=== PATIENT | male | born 1945 | race Hispanic/Latino ===

== ENCOUNTER 2016-07-29 18:15 | Inpatient (IN) | payer MEDICARE ==
--- NOTE | 2016-07-29 20:19 | ED PDOC ---
Syncope/Near Syncope/Dizzyness Time Seen by Provider: 07/29/16 19:05 Chief Complaint (Nursing): Dizziness/Lightheaded Chief Complaint (Provider): dizziness History Per: Patient History/Exam Limitations: no limitations Additional Complaint(s): Kumar Guzman is a 70 year old male, with a previous medical history of anemia, delirium and osteomyelitis of the right foot, who presents to the ED after sustaining a fall secondary to feeling dizzy. Patient denies any fever, vomiting , abdominal pain, loss of consciousness, changes in vision, changes or speech or changes in gait.denies chest pain, sob. Patient walks with a walker at baseline. PMD: none provided NIHSS Stroke Scale - Date/Time Evaluation Performed Date Performed: 07/29/16 - How Severe is the Stroke Level of Consciousness: 0=Alert LOC to Questions: 0=Both comments correct LOC to commands: 0=Obeys both correctly Best Gaze: 0=Normal Visual: 0=No visual loss Facial: 0=Normal Motor Arm - Left: 0=No drift Motor Arm - Right: 0=No drift Motor Leg - Left: 0=No drift Motor Leg - Right: 0=No drift Limb Ataxia: 0=Absent Sensory: 0=Normal Best Language: 0=No aphasia Dysarthia: 0=Normal articulation Extinction & Inattention (Neglect): 0=Normal, no object Score: 0 Severity Of Stroke: 0 = No Stroke Past Medical History Reviewed: Historical Data, Nursing Documentation, Vital Signs Vital Signs: Last Vital Signs Temp 98.2 F 07/29/16 18:18 Pulse 99 H 07/29/16 18:18 Resp 16 07/29/16 18:18 BP 127/80 07/29/16 18:18 Pulse Ox 99 07/29/16 18:18 - Medical History PMH: Diabetes, HTN Denies: HIV - Surgical History Surgical History: No Surg Hx - Family History Family History: States: Unknown Family Hx - Living Arrangements Living Arrangements: With Family (w alcoholic son) - Social History Current smoker - smoking cessation education provided: No Alcohol: None Drugs: Denies - Home Medications Home Medications: Ambulatory Orders Medication Instructions Recorded No Known Home Med 07/29/16 - Allergies Allergies/Adverse Reactions: Allergies Allergy/AdvReac Type Severity Reaction Status Date / Time No Known Allergies Allergy Verified 07/29/16 18:18 Review of Systems ROS Statement: Except As Marked, All Systems Reviewed And Found Negative Constitutional: Negative for: Fever Gastrointestinal: Negative for: Vomiting, Abdominal Pain Neurological: Positive for: Dizziness. Negative for: Headache, Other (LOC) Physical Exam - Reviewed Nursing Documentation Reviewed: Yes Vital Signs Reviewed: Yes - Physical Exam Appears: Positive for: Well (patient appears discheveled ), Non-toxic, No Acute Distress Head Exam: Positive for: ATRAUMATIC, NORMAL INSPECTION, NORMOCEPHALIC Skin: Positive for: Normal Color, Warm, DRY Eye Exam: Positive for: EOMI, Normal appearance, PERRL ENT: Positive for: Normal ENT Inspection Neck: Positive for: Normal, Painless ROM Cardiovascular/Chest: Positive for: Regular Rate, Rhythm Respiratory: Positive for: CNT, Normal Breath Sounds Gastrointestinal/Abdominal: Positive for: Normal Exam, Bowel Sounds, Soft Back: Positive for: Normal Inspection Extremity: Positive for: Normal ROM, Swelling (chronic right foot swelling) Neurologic/Psych: Positive for: Alert, Oriented - Laboratory Results Result Diagrams: 07/29/16 20:24 07/29/16 20:24 - ECG ECG Rhythm: Positive for: Sinus Rhythm. Negative for: ST/T Changes Rate: 92 (bpm) O2 Sat by Pulse Oximetry: 99 (RA) Pulse Ox Interpretation: Normal - Progress ED Course And Treament: 21:55 Spoke with patient's son (Kirsten Guzman) who expressed concern for his father's wellbeing stating patient lives with his alcoholic brother and experiences frequent falls. Son believes patient is unsafe at home and wants his father placed in a snf. Son reports patient is noncompliant with diabetes medication. 22:[address] Carranza who agrees to plan of admission Medical Decision Making Medical Decision Making: Initial Impression: fall rule our alcohol withdrawal vs intracranial process Initial Plan: * CT head w/o contrast * CXR * EKG * labs * alcohol serum * urine drug screen * Troponin I * urinalysis * urine culture * reevaluation 20:59 CT Head FINDINGS: Brain: Mild atrophy. No intracranial hemorrhage. No mass. Multiple scattered foci of decreased attenuation within periventricular/subcortical white matter. No definite edema. Ventricles: No hydrocephalus. Bones/joints: No acute fracture. Soft tissues: Unremarkable. Vasculature: Mild atherosclerotic disease of intracranial arteries. Sinuses: Scattered mild mucosal thickening of RIGHT maxillary sinus. Scattered minimal to mild mucosal thickening. Mastoid air cells: No mastoid effusion. Orbits: Unremarkable as visualized. IMPRESSION: 1. Nonspecific white matter changes. Acute infarction may be CT occult within first 24 hours. If a focal deficit persists, consider followup CT or MRI for further evaluation. 2. Incidental/non-acute findings are described above. Pt will need to be admitted for recurrent falls and dizziness. pt also may need placement in snf due as per son Kirsten who is here with pt. he doesnt live with pt as pt lives with other son who is alcoholic and pt himself has history of etoh abuse so is an unhealthy environment for pt. Dr Dillon becerra coal conveyor operator will admit pt. he is aware. pt hasnt followed up with a doctor in many months to years. does not take any medications at home as per kirsten. pt also noted to have UTI, rocephin ordered Scribe Attestation: Documented by Kayla Caraballo, acting as a scribe for Mckenzie Reyna MD. Provider Scribe Attestation: All medical record entries made by the Scribe were at my direction and personally dictated by me. I have reviewed the chart and agree that the record accurately reflects my personal performance of the history, physical exam, medical decision making, and the department course for this patient. I have also personally directed, reviewed, and agree with the discharge instructions and disposition. Disposition - Clinical Impression Clinical Impression: Dizziness, Falls, UTI (urinary tract infection) - Patient ED Disposition Is Patient to be Admitted: Yes - Disposition Disposition Time: 22:00 Condition: STABLE rTPA Inclusion/Exclusion - Refusal of Treatment Patient Refused Treatment: No - Inclusion Criteria for Altepase Patient is 18 years or Older: Yes Clinical DX Ischemic Stroke Cause Neurological Deficit: No Time of Onset Established Less Than 270 Mins Before TX Begin: No Risk/Benefit Discussed With Patient/Family Member Present: No - Warning to TPA With Conditions Following Conditions Weighed Against Anticipated Benefit: No
--- NOTE | 2016-07-29 20:59 | CT ---
EXAM: CT Head Without Intravenous Contrast CLINICAL HISTORY: 70 years old, male; Signs and symptoms; Dizziness; Additional info: Headache. Sent lelo Viramontes. Doc. With request TECHNIQUE: Axial computed tomography images of the head/brain without intravenous contrast. This CT exam was performed using one or more of the following dose reduction techniques: automated exposure control, adjustment of the mA and/or kV according to patient size, and/or use of iterative reconstruction technique. Coronal and sagittal reformatted images were created and reviewed. COMPARISON: CT - HEAD W/O CONTRAST 04/10/2015 12:31:51 AM FINDINGS: Brain: Mild atrophy. No intracranial hemorrhage. No mass. Multiple scattered foci of decreased attenuation within periventricular/subcortical white matter. No definite edema. Ventricles: No hydrocephalus. Bones/joints: No acute fracture. Soft tissues: Unremarkable. Vasculature: Mild atherosclerotic disease of intracranial arteries. Sinuses: Scattered mild mucosal thickening of RIGHT maxillary sinus. Scattered minimal to mild mucosal thickening. Mastoid air cells: No mastoid effusion. Orbits: Unremarkable as visualized. IMPRESSION: 1. Nonspecific white matter changes. Acute infarction may be CT occult within first 24 hours. If a focal deficit persists, consider followup CT or MRI for further evaluation. 2. Incidental/non-acute findings are described above.
[2016-07-29 21:09] LABS: BASO # 0.1 K/uL (0.0-0.2); BASO % 1.1 % (0.0-2.0); EOS # 0.1 K/uL (0.0-0.7); EOS % 1.6 % (0.0-4.0); HEMATOCRIT 39.1 % (35.0-51.0); LYMPH # 1.5 K/uL (1.0-4.3); LYMPH % 16.6 % (20.0-40.0); MEAN CELL VOLUME 99.7 fl (80.0-94.0); MEAN CORPUSCULAR HEMOGLOBIN 32.8 pg (27.0-31.0); MEAN CORPUSCULAR HGB CONC 32.9 g/dL (33.0-37.0); MEAN PLATELET VOLUME 10.3 fl (7.2-11.7); MONO # 0.9 K/uL (0.0-0.8); NEUT # 6.5 K/uL (1.8-7.0); NEUT % 70.7 % (50.0-75.0); RED CELL DISTRIBUTION WIDTH 14.3 % (11.5-14.5); WHITE BLOOD COUNT 9.1 K/uL (4.8-10.8)
[2016-07-29 21:17] LABS: ALB/GLOB RATIO 1.1 (1.0-2.1); ALCOHOL SERUM < 10 mg/dl (0-10); ALKALINE PHOSPHATASE 112 U/L (38-126); ALT/SGPT 16 U/L (21-72); AST/SGOT 14 U/L (17-59); BILIRUBIN,TOTAL 0.4 mg/dl (0.2-1.3); BLOOD UREA NITROGEN 18 mg/dl (9-20); CALCIUM 9.5 mg/dL (8.4-10.2); CARBON DIOXIDE 23 mmol/L (22-30); CHLORIDE 109 mmol/L (98-107); GFR AFRICAN-AMERICAN 56; GLUCOSE,RANDOM 204 mg/dL (75-110); POTASSIUM 4.1 MMOL/L (3.6-5.0); SODIUM 141 mmol/l (132-148); TOTAL PROTEIN 7.3 G/DL (6.3-8.2)
[2016-07-29 22:18] LABS: RBC URINE 5 /hpf (0-3); URINE BACTERIA RARE (<OCC); URINE BILIRUBIN NEGATIVE (NEGATIVE); URINE BLOOD NEGATIVE (NEGATIVE); URINE COLOR YELLOW (YELLOW); URINE GLUCOSE (UA) NEG (Normal); URINE KETONE NEGATIVE (NEGATIVE); URINE LEUKOCYTE ESTERASE MOD Leu/uL (Negative); URINE PROTEIN 30 mg/dL (NEGATIVE); URINE UROBILINOGEN 0.2-1.0 mg/dL (0.2-1.0); WBC URINE 58 /hpf (0-5)
--- NOTE | 2016-07-30 06:48 | CP.PCM.HP ---
<Dior Fuentes - Last Filed: 07/30/16 19:07> History of Present Illness - History of Present Illness History of Present Illness: CC: Fall Patient admitted overnight and seen this morning at bedside with attending. Pt states he was attempting to pull up his pants and fell over and just "laid there". He denies LOC or striking his head. He denies any SOB, chest pain, abdominal pain, fevers, chills, diarrhea, but reports a non-productive cough. He denies any associated seizure like activity. PMH: DM, alcohol abuse Present on Admission - Present on Admission Any Indicators Present on Admission: No History of DVT/PE: No Review of Systems - Review of Systems All systems: reviewed and no additional remarkable complaints except - Respiratory Respiratory: Cough Past Patient History - Past Medical History & Family History Past Medical History?: Yes - Past Social History Alcohol: None Drugs: Denies - CARDIAC Hx Hypertension: Yes - PULMONARY Hx Respiratory Disorders: No - NEUROLOGICAL Hx Neurological Disorder: Yes Hx Meningitis: Yes - HEENT Hx HEENT Problems: No - RENAL Hx Chronic Kidney Disease: No - ENDOCRINE/METABOLIC Hx Endocrine Disorders: Yes Hx Diabetes Mellitus Type 2: Yes - HEMATOLOGICAL/ONCOLOGICAL Hx Human Immunodeficiency Virus (HIV): No - INTEGUMENTARY Hx Dermatological Problems: No - MUSCULOSKELETAL/RHEUMATOLOGICAL Hx Musculoskeletal Disorders: Yes Hx Falls: Yes Hx Osteomyelitis: Yes - GASTROINTESTINAL Hx Gastrointestinal Disorders: No - GENITOURINARY/GYNECOLOGICAL Hx Genitourinary Disorders: No - PSYCHIATRIC Hx Psychophysiologic Disorder: No Hx Substance Use: No - SURGICAL HISTORY Hx Surgeries: No - ANESTHESIA Hx Anesthesia: No Hx Anesthesia Reactions: No Hx Malignant Hyperthermia: No Has any member of the family had a problem w/ anesthesia?: No Meds Allergies/Adverse Reactions: Allergies Allergy/AdvReac Type Severity Reaction Status Date / Time No Known Allergies Allergy Verified 07/29/16 18:18 Physical Exam - Constitutional Appears: Non-toxic, No Acute Distress, Unkempt, Older Than Stated Age Additional comments: Smells like urine - Head Exam Head Exam: ATRAUMATIC, NORMAL INSPECTION - Eye Exam Eye Exam: EOMI, PERRL. absent: Nystagmus - ENT Exam ENT Exam: Mucous Membranes Moist, Normal Exam - Respiratory Exam Respiratory Exam: Clear to Auscultation Bilateral, Rhonchi (LEFT base), NORMAL BREATHING PATTERN. absent: Wheezes - Cardiovascular Exam Cardiovascular Exam: REGULAR RHYTHM. absent: JVD - GI/Abdominal Exam GI & Abdominal Exam: Normal Bowel Sounds, Soft. absent: Tenderness - Extremities Exam Extremities exam: Positive for: normal capillary refill, pedal pulses present. Negative for: normal inspection (RIGHT foot s/p resection of ?3rd toe, well healed), pedal edema - Neurological Exam Neurological exam: Alert - Skin Skin Exam: Normal Color, Warm Results - Vital Signs Recent Vital Signs: Last Vital Signs Temp 37.2 C 07/29/16 22:55 Pulse 92 H 07/30/16 05:33 Resp 17 07/29/16 22:55 BP 160/90 H 07/29/16 22:55 Pulse Ox 99 07/30/16 05:33 - Labs Result Diagrams: 07/30/16 07:45 07/30/16 07:45 Assessment & Plan (1) Falls Assessment and Plan: Recurrent, likely secondary to chronic changes involving nutrition and alcohol use. CT head consistent with chronic changes, TSH/B12/Folate wnl. - Neurology Consult(Dr Wolf) appreciated - PT/OT Status: Acute Priority: Medium (2) DVT prophylaxis Assessment and Plan: Lovenox 40mg, SC, Daily Status: Acute (3) Diabetes Assessment and Plan: Stable c/w home medications Status: Acute <Henri Carranza - Last Filed: 08/02/16 09:54> Results - Vital Signs Recent Vital Signs: Last Vital Signs Temp 98.3 F 08/02/16 08:32 Pulse 82 08/02/16 08:32 Resp 20 08/02/16 08:32 BP 137/76 08/02/16 08:32 Pulse Ox 95 08/02/16 08:32 - Labs Result Diagrams: 08/01/16 18:00 08/01/16 18:00 Labs: Laboratory Results - last 24 hr 08/01/16 08/01/16 08/01/16 10:30 17:00 18:00 WBC 7.8 RBC 3.51 L Hgb 11.7 L Hct 34.4 L MCV 98.0 H MCH 33.3 H MCHC 34.0 RDW 14.2 Plt Count 112 L Sodium Potassium Chloride Carbon Dioxide Anion Gap BUN Creatinine Est GFR ( Amer) Est GFR (Non-Af Amer) POC Glucose (mg/dL) 186 H 217 H Random Glucose Calcium RPR HIV-1 Ab Rapid Screen 08/01/16 08/01/16 08/01/16 18:00 18:00 18:00 WBC RBC Hgb Hct MCV MCH MCHC RDW Plt Count Sodium 139 Potassium 4.4 Chloride 108 H Carbon Dioxide 20 L Anion Gap 15 BUN 37 H Creatinine 1.9 H Est GFR ( Amer) 43 Est GFR (Non-Af Amer) 35 POC Glucose (mg/dL) Random Glucose 145 H Calcium 8.6 RPR Nonreactive HIV-1 Ab Rapid Screen Non reactive 08/02/16 06:45 WBC RBC Hgb Hct MCV MCH MCHC RDW Plt Count Sodium Potassium Chloride Carbon Dioxide Anion Gap BUN Creatinine Est GFR ( Amer) Est GFR (Non-Af Amer) POC Glucose (mg/dL) 117 H Random Glucose Calcium RPR HIV-1 Ab Rapid Screen Assessment & Plan (1) Dizziness Status: Acute (2) Falls Status: Acute Priority: Medium (3) Diabetes mellitus type 2 in nonobese Status: Acute (4) Gait difficulty Status: Acute - Assessment and Plan (Free Text) Plan: I was present during evaluation and discussed with Dr Alfredo robison plans of care and tx.
[2016-07-30 08:10] LABS: BASO # 0.1 K/uL (0.0-0.2); BASO % 2.1 % (0.0-2.0); EOS # 0.1 K/uL (0.0-0.7); EOS % 2.6 % (0.0-4.0); HEMATOCRIT 36.8 % (35.0-51.0); LYMPH # 1.8 K/uL (1.0-4.3); LYMPH % 33.8 % (20.0-40.0); MEAN CELL VOLUME 98.2 fl (80.0-94.0); MEAN CORPUSCULAR HEMOGLOBIN 33.3 pg (27.0-31.0); MEAN CORPUSCULAR HGB CONC 33.9 g/dL (33.0-37.0); MEAN PLATELET VOLUME 10.4 fl (7.2-11.7); MONO # 0.8 K/uL (0.0-0.8); MONO % 14.3 % (0.0-10.0); NEUT # 2.6 K/uL (1.8-7.0); NEUT % 47.2 % (50.0-75.0); NRBC % 0.1 % (0.0-0.0); RED CELL DISTRIBUTION WIDTH 14.4 % (11.5-14.5); WHITE BLOOD COUNT 5.4 K/uL (4.8-10.8)
--- NOTE | 2016-07-30 08:29 | CARD ---
APPROVED REPORT EKG Measurement Heart [id number] <Conclusion> Normal sinus rhythm Normal ECG
[2016-07-30 08:37] LABS: ALB/GLOB RATIO 1.1 (1.0-2.1); ALKALINE PHOSPHATASE 100 U/L (38-126); ALT/SGPT 18 U/L (21-72); AST/SGOT 15 U/L (17-59); BILIRUBIN,TOTAL 0.3 mg/dl (0.2-1.3); BLOOD UREA NITROGEN 18 mg/dl (9-20); CALCIUM 9.3 mg/dL (8.4-10.2); CARBON DIOXIDE 23 mmol/L (22-30); CHLORIDE 108 mmol/L (98-107); GFR AFRICAN-AMERICAN > 60; GLUCOSE,RANDOM 199 mg/dL (75-110); POTASSIUM 3.8 MMOL/L (3.6-5.0); SODIUM 141 mmol/l (132-148)
[2016-07-30 08:52] LABS: THYROID STIMULATING HORMONE 1.63 mIU/ML (0.46-4.68)
--- NOTE | 2016-07-30 10:05 | RAD ---
HISTORY: Dizziness COMPARISON: 04/10/2015 FINDINGS: LUNGS: The lungs are well inflated and clear. PLEURA: No significant pleural effusion identified, no pneumothorax apparent. CARDIOVASCULAR: Normal. Atherosclerotic aortic arch calcifications are present. OSSEOUS STRUCTURES: No significant abnormalities. VISUALIZED UPPER ABDOMEN: Normal. OTHER FINDINGS: None. IMPRESSION: No active pulmonary disease.
[2016-07-30] MEDS: Enoxaparin 40 mg Syringe SC SCH (12:05)
--- NOTE | 2016-07-30 13:34 | US ---
PROCEDURE: Frequent falls HISTORY: s/p fall COMPARISON: None TECHNIQUE: Grayscale, color Doppler and spectral Doppler assessment of the carotid system bilaterally. This includes common carotid, internal carotid arteries Vertebral artery assessment with respect to direction of flow (antegrade or retrograde) FINDINGS: RIGHT carotid system: Assessment of plaque: Calcified heterogeneous plaque formation in the bulb extending into right internal carotid artery. Peak systolic ICA velocity: 106 cm/sec End-diastolic velocity: 18 cm/sec ICA/CCA ratio: 1.1 Vertebral artery flow: Antegrade LEFT carotid system: Assessment of plaque: Heterogeneous plaque formation. Peak systolic ICA velocity: 77 cm/sec End-diastolic velocity: 16 cm/sec ICA/CCA ratio: 1.0 Vertebral artery flow: Antegrade IMPRESSION: Right ICA degree of stenosis: Less than 50% Left ICA degree of stenosis: Less than 50% Reference Internal Carotid Artery (ICA) Peak Systolic Velocity (PSV) for above: 1. Less than 50% stenosis less than 125 cm/s peak systolic velocity 2. 50-69% stenosis 125-230cm/s peak systolic velocity 3. Greater than 70% but less than near occlusion greater than 230 cm/s peak systolic velocity
--- NOTE | 2016-07-30 15:44 | CP.PCM.CON ---
History of Present Illness - History of Present Illness History of Present Illness: Mr. Guzman is a 70-year-old man with a past medical history of diabetes, chronic alcoholism and long-term cigarette smoking, who states that he was walking to his son's shop, when he noticed that his pants started to fall down. He tried to pick them up, but he could not. During his effort to vegetable picker his pants, he fell to the ground and could not get up for about 15 minutes. He admits that his legs have been weak over the last several months and he has had at least 5 other falls. He denies any injuries from the falls. He states that he has trouble standing from a seated position sometimes because he does not feel his legs very well. He denies headaches, visual changes, nausea, vomiting , chest pain, shortness of breath, upper extremity weakness, sensory changes ( other than described), abdominal pain or other associated symptoms. Review of Systems - Review of Systems All systems: reviewed and no additional remarkable complaints except Past Patient History - Past Medical History & Family History Past Medical History?: Yes - Past Social History Alcohol: None Drugs: Denies - CARDIAC Hx Hypertension: Yes - PULMONARY Hx Respiratory Disorders: No - NEUROLOGICAL Hx Neurological Disorder: Yes Hx Meningitis: Yes - HEENT Hx HEENT Problems: No - RENAL Hx Chronic Kidney Disease: No - ENDOCRINE/METABOLIC Hx Endocrine Disorders: Yes Hx Diabetes Mellitus Type 2: Yes - HEMATOLOGICAL/ONCOLOGICAL Hx Human Immunodeficiency Virus (HIV): No - INTEGUMENTARY Hx Dermatological Problems: No - MUSCULOSKELETAL/RHEUMATOLOGICAL Hx Musculoskeletal Disorders: Yes Hx Falls: Yes Hx Osteomyelitis: Yes - GASTROINTESTINAL Hx Gastrointestinal Disorders: No - GENITOURINARY/GYNECOLOGICAL Hx Genitourinary Disorders: No - PSYCHIATRIC Hx Psychophysiologic Disorder: No Hx Substance Use: No - SURGICAL HISTORY Hx Surgeries: No - ANESTHESIA Hx Anesthesia: No Hx Anesthesia Reactions: No Hx Malignant Hyperthermia: No Has any member of the family had a problem w/ anesthesia?: No Meds Allergies/Adverse Reactions: Allergies Allergy/AdvReac Type Severity Reaction Status Date / Time No Known Allergies Allergy Verified 07/29/16 18:18 - Medications Medications: Current Medications Enoxaparin Sodium (Lovenox) 40 mg SC DAILY [facility] PRN Reason: Protocol Last Admin: 07/30/16 12:05 Dose: 40 mg Folic Acid (Folic Acid) 1 mg PO DAILY [facility] Last Admin: 07/30/16 10:12 Dose: 1 mg Insulin Detemir (Levemir) 12 units SC HS [facility] Metformin HCl (Glucophage) 500 mg PO BIDWM [facility] Last Admin: 07/30/16 12:07 Dose: 500 mg Metoprolol Tartrate (Lopressor) 25 mg PO Q12 [facility] Last Admin: 07/30/16 10:12 Dose: 25 mg Thiamine HCl (Vitamin B1 Tab) 100 mg PO DAILY [facility] Last Admin: 07/30/16 12:04 Dose: 100 mg Physical Exam - Constitutional Appears: Unkempt, Chronically Ill - Head Exam Head Exam: ATRAUMATIC, NORMAL INSPECTION, NORMOCEPHALIC - Eye Exam Eye Exam: EOMI, Normal appearance, PERRL Pupil Exam: NORMAL ACCOMODATION, PERRL - ENT Exam ENT Exam: Mucous Membranes Moist, Normal Exam - Neck Exam Neck exam: Positive for: Normal Inspection - Respiratory Exam Respiratory Exam: Clear to Auscultation Bilateral, NORMAL BREATHING PATTERN - Cardiovascular Exam Cardiovascular Exam: REGULAR RHYTHM - GI/Abdominal Exam GI & Abdominal Exam: Normal Bowel Sounds, Soft. absent: Tenderness - Rectal Exam Rectal Exam: Deferred - Neurological Exam Neurological exam: Abnormal Gait, Alert, CN II-XII Intact, Oriented x3, Reflexes Normal Additional comments: Upper extremity strength is 5/5 bilaterally proximally and distally. Lower extremity strength is 3/5 proximally, bilaterally and 4/5 distally. Sensation is deminished in the lower extremities as compared with the upper extremities. Reflexes were 1/4 in the lower extremities (L3/L4) and 2/4 in the upper extremities (C5/C6). He could not stand from a seated position without assistance. Romberg could not be assessed. - Psychiatric Exam Psychiatric exam: Normal Affect, Normal Mood - Skin Skin Exam: Rash Results - Vital Signs Recent Vital Signs: Last Vital Signs Temp 98.1 F 07/30/16 08:19 Pulse 75 07/30/16 10:12 Resp 20 07/30/16 08:19 BP 146/84 07/30/16 10:12 Pulse Ox 98 07/30/16 08:19 - Labs Result Diagrams: 07/30/16 07:45 07/30/16 07:45 Labs: Laboratory Results - last 24 hr 07/30/16 07/30/16 07/30/16 06:46 07:45 07:45 WBC 5.4 RBC 3.74 L Hgb 12.5 Hct 36.8 MCV 98.2 H MCH 33.3 H MCHC 33.9 RDW 14.4 Plt Count 122 L MPV 10.4 Neut % (Auto) 47.2 L Lymph % (Auto) 33.8 Metcalfe % (Auto) 14.3 H Eos % (Auto) 2.6 Baso % (Auto) 2.1 H Neut # 2.6 Lymph # 1.8 Metcalfe # 0.8 Eos # 0.1 Baso # 0.1 Sodium 141 Potassium 3.8 Chloride 108 H Carbon Dioxide 23 Anion Gap 14 BUN 18 Creatinine 1.4 Est GFR ( Amer) > 60 Est GFR (Non-Af Amer) 50 POC Glucose (mg/dL) 205 H Random Glucose 199 H Calcium 9.3 Iron Ferritin 162.0 Total Bilirubin 0.3 AST 15 L ALT 18 L Alkaline Phosphatase 100 Total Protein 7.0 Albumin 3.6 Globulin 3.3 Albumin/Globulin Ratio 1.1 Vitamin B12 361 TSH 3rd Generation 1.63 07/30/16 07:45 WBC RBC Hgb Hct MCV MCH MCHC RDW Plt Count MPV Neut % (Auto) Lymph % (Auto) Metcalfe % (Auto) Eos % (Auto) Baso % (Auto) Neut # Lymph # Metcalfe # Eos # Baso # Sodium Potassium Chloride Carbon Dioxide Anion Gap BUN Creatinine Est GFR ( Amer) Est GFR (Non-Af Amer) POC Glucose (mg/dL) Random Glucose Calcium Iron 49 Ferritin Total Bilirubin AST ALT Alkaline Phosphatase Total Protein Albumin Globulin Albumin/Globulin Ratio Vitamin B12 TSH 3rd Generation - Imaging and Cardiology CT scan - head Status: Image reviewed by me, Report reviewed by me (No acute findings noted. 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 However, the CT of the head shows extensive white matter disease and chronic infarcts may also be possible. Will obtain an MRI of the brain as well as the lumbar and thoracic spine. Will start aspirin 81 mg daily for stroke prevention and cerebrovascular disease. PT/OT, adequate hydration, DVT Px. Thank you for this consultation. Status: Acute Priority: Medium
[2016-07-30] MEDS ORDERED: Insulin Detemir 100 Units/ml Inj SC SCH (22:00)
[2016-07-31] MEDS: Enoxaparin 40 mg Syringe SC SCH (14:05)
--- NOTE | 2016-07-31 14:45 | MRI ---
PROCEDURE: MRI BRAIN WITHOUT CONTRAST HISTORY: frequent falls and white matter disease COMPARISON: None. TECHNIQUE: Multiplanar, multisequence MR images of the brain were obtained without intravenous contrast enhancement. FINDINGS: HEMORRHAGE: None DWI: No evidence of an acute or early subacute infarction. BRAIN PARENCHYMA: No mass effect or edema. Extensive chronic periventricular white matter ischemic disease. VENTRICLES: Unremarkable. No hydrocephalus. CRANIUM: Unremarkable. ORBITS: Grossly unremarkable. PARANASAL SINUSES/MASTOIDS: Left mastoid air cell opacification. VASCULAR SYSTEM: Skull base flow voids intact. OTHER FINDINGS: None. IMPRESSION: Chronic periventricular white matter ischemic disease left mastoid air cell opacification.
--- NOTE | 2016-07-31 14:47 | MRI ---
PROCEDURE: MR LUMBAR SPINE WITHOUT CONTRAST HISTORY: lower extremity weakness COMPARISON: None available. TECHNIQUE: Multiecho multiplanar sequences were performed through the lumbar spine without the use of intravenous contrast. FINDINGS: Normal lumbar lordosis. Vertebral body heights are preserved. Marrow signal unremarkable. Conus medullaris unremarkable at the level of Paraspinal soft tissues are unremarkable. T12-L1: No disc herniation, spinal canal stenosis or neural foraminal narrowing. L1-2: No disc herniation, spinal canal stenosis or neural foraminal narrowing. L2-3: No disc herniation, spinal canal stenosis or neural foraminal narrowing. L3-4: No disc herniation, spinal canal stenosis or neural foraminal narrowing. L4-5: Disc bulge with thecal sac indentation and facet arthropathy contributing central canal stenosis. L5-S1: Disc bulge with thecal sac indentation. OTHER FINDINGS: None. IMPRESSION: L4-5: Disc bulge with thecal sac indentation and facet arthropathy contributing central canal stenosis. L5-S1: Disc bulge with thecal sac indentation.
--- NOTE | 2016-07-31 14:49 | MRI ---
PROCEDURE: MR THORACIC SPINE WITHOUT CONTRAST HISTORY: lower extremity weakness COMPARISON: None available. TECHNIQUE: Multiecho multiplanar sequences were performed through the thoracic spine without the use of intravenous contrast. FINDINGS: ALIGNMENT: Normal thoracic spinal alignment. Normal thoracic kyphosis. VERTEBRA: Vertebral body height are preserved. MARROW: Marrow signal unremarkable. PARASPINAL SOFT TISSUES: Unremarkable. CORD: 13 millimeter syrinx in the upper thoracic cord. Question arachnoid cyst in the mid thoracic spine with mass-effect upon the posterior margin of the cord, though appearance may be positional in nature. DISCS: No disc herniation, spinal canal stenosis, or neuroforaminal narrowing. OTHER FINDINGS: None. IMPRESSION: 13 millimeter syrinx in the upper thoracic cord. Question arachnoid cyst in the mid thoracic spine with mass-effect upon the posterior margin of the cord, though appearance may be positional in nature.
--- NOTE | 2016-07-31 15:02 | CP.PCM.PN ---
Subjective - Date & Time of Evaluation Date of Evaluation: 07/31/16 Time of Evaluation: 14:59 - Subjective Subjective: Patient feels better. was not ambulated yet. Has no fever. Has very good appetite FBS 190 A1c 7.8O On metformin 500 bid and levemir Objective - Vital Signs/Intake and Output Vital Signs (last 24 hours): Temp Pulse Resp BP Pulse Ox 97.8 F 66 20 151/79 H 96 07/31/16 08:00 07/31/16 10:06 07/31/16 08:00 07/31/16 10:06 07/31/16 08:00 - Medications Medications: Current Medications Aspirin (Ecotrin) 81 mg PO DAILY [facility] Last Admin: 07/31/16 14:06 Dose: 81 mg Enoxaparin Sodium (Lovenox) 40 mg SC DAILY [facility] PRN Reason: Protocol Last Admin: 07/31/16 14:05 Dose: 40 mg Folic Acid (Folic Acid) 1 mg PO DAILY [facility] Last Admin: 07/31/16 14:06 Dose: 1 mg Insulin Detemir (Levemir) 12 units SC [facility] Last Admin: 07/30/16 22:43 Dose: 12 units Metformin HCl (Glucophage) 500 mg PO BIDWM [facility] Last Admin: 07/31/16 10:06 Dose: 500 mg Metoprolol Tartrate (Lopressor) 25 mg PO Q12 [facility] Last Admin: 07/31/16 10:06 Dose: 25 mg Thiamine HCl (Vitamin B1 Tab) 100 mg PO DAILY [facility] Last Admin: 07/31/16 14:06 Dose: 100 mg - Labs Labs: 07/30/16 07:45 07/30/16 07:45 - Head Exam Head Exam: NORMAL INSPECTION - Eye Exam Eye Exam: Normal appearance - ENT Exam ENT Exam: Mucous Membranes Moist - Respiratory Exam Respiratory Exam: Clear to Ausculation Bilateral - Cardiovascular Exam Cardiovascular Exam: REGULAR RHYTHM - GI/Abdominal Exam GI & Abdominal Exam: Normal Bowel Sounds - Neurological Exam Neurological Exam: Awake, Oriented x3 Assessment and Plan (1) Dizziness Status: Acute (2) Falls Status: Acute (3) Diabetes mellitus type 2 in nonobese Status: Acute (4) Gait difficulty Status: Acute - Assessment and Plan (Free Text) Plan: Cont meds DC levemir increase metformin to 1000 bid add januvia 100 mg daily ambulate Phys therapy subacute rehab.
[2016-08-01] MEDS: Enoxaparin 40 mg Syringe SC SCH (08:44)
[2016-08-01 18:09] LABS: HEMATOCRIT 34.4 % (35.0-51.0); MEAN CORPUSCULAR HEMOGLOBIN 33.3 pg (27.0-31.0); RED CELL DISTRIBUTION WIDTH 14.2 % (11.5-14.5); WHITE BLOOD COUNT 7.8 K/uL (4.8-10.8)
[2016-08-01 18:19] LABS: CALCIUM 8.6 mg/dL (8.4-10.2); POTASSIUM 4.4 MMOL/L (3.6-5.0)
[2016-08-02] MEDS: Enoxaparin 40 mg Syringe SC SCH (09:20)
--- NOTE | 2016-08-02 09:54 | CP.PCM.PN ---
Subjective - Date & Time of Evaluation Date of Evaluation: 08/01/16 Time of Evaluation: 10:00 - Subjective Subjective: Has been fairly stable has good appetite Normal bm Has no fever Still with difficulty with ambulation. Objective - Vital Signs/Intake and Output Vital Signs (last 24 hours): Temp Pulse Resp BP Pulse Ox 98.3 F 82 20 137/76 95 08/02/16 08:32 08/02/16 08:32 08/02/16 08:32 08/02/16 08:32 08/02/16 08:32 - Medications Medications: Current Medications Aspirin (Ecotrin) 81 mg PO DAILY [facility] Last Admin: 08/02/16 09:20 Dose: 81 mg Folic Acid (Folic Acid) 1 mg PO DAILY [facility] Last Admin: 08/02/16 09:21 Dose: 1 mg Metformin HCl (Glucophage) 1,000 mg PO BIDWM [facility] Last Admin: 08/02/16 09:20 Dose: 1,000 mg Metoprolol Tartrate (Lopressor) 25 mg PO Q12 [facility] Last Admin: 08/02/16 09:21 Dose: 25 mg Sitagliptin Phosphate (Januvia) 100 mg PO DAILY [facility] Last Admin: 08/02/16 09:21 Dose: 100 mg Thiamine HCl (Vitamin B1 Tab) 100 mg PO DAILY [facility] Last Admin: 08/02/16 09:21 Dose: 100 mg - Labs Labs: 08/01/16 18:00 08/01/16 18:00 - Head Exam Head Exam: NORMAL INSPECTION - Eye Exam Eye Exam: Normal appearance - ENT Exam ENT Exam: Mucous Membranes Moist - Respiratory Exam Respiratory Exam: Clear to Ausculation Bilateral - Cardiovascular Exam Cardiovascular Exam: REGULAR RHYTHM - GI/Abdominal Exam GI & Abdominal Exam: Normal Bowel Sounds - Neurological Exam Neurological Exam: CN II-XII Intact, Normal Gait, Oriented x3 Assessment and Plan (1) Dizziness Status: Acute (2) Falls Status: Acute (3) Diabetes mellitus type 2 in nonobese Status: Acute (4) Gait difficulty Status: Acute - Assessment and Plan (Free Text) Plan: Cont meds Cont tx Cont PT subacute rehab eval. follow up with PT.
--- NOTE | 2016-08-02 09:57 | CP.PCM.PN ---
Subjective - Date & Time of Evaluation Date of Evaluation: 08/02/16 Time of Evaluation: 09:55 - Subjective Subjective: patient is doing well however still with poor balance with standing and ambulation. Smith no fever. Objective - Vital Signs/Intake and Output Vital Signs (last 24 hours): Temp Pulse Resp BP Pulse Ox 98.3 F 82 20 137/76 95 08/02/16 08:32 08/02/16 08:32 08/02/16 08:32 08/02/16 08:32 08/02/16 08:32 - Medications Medications: Current Medications Aspirin (Ecotrin) 81 mg PO DAILY [facility] Last Admin: 08/02/16 09:20 Dose: 81 mg Folic Acid (Folic Acid) 1 mg PO DAILY [facility] Last Admin: 08/02/16 09:21 Dose: 1 mg Metformin HCl (Glucophage) 1,000 mg PO BIDWM [facility] Last Admin: 08/02/16 09:20 Dose: 1,000 mg Metoprolol Tartrate (Lopressor) 25 mg PO Q12 [facility] Last Admin: 08/02/16 09:21 Dose: 25 mg Sitagliptin Phosphate (Januvia) 100 mg PO DAILY [facility] Last Admin: 08/02/16 09:21 Dose: 100 mg Thiamine HCl (Vitamin B1 Tab) 100 mg PO DAILY [facility] Last Admin: 08/02/16 09:21 Dose: 100 mg - Labs Labs: 08/01/16 18:00 08/01/16 18:00 - Head Exam Head Exam: NORMAL INSPECTION - Eye Exam Eye Exam: Normal appearance - ENT Exam ENT Exam: Mucous Membranes Moist - Respiratory Exam Respiratory Exam: Clear to Ausculation Bilateral - GI/Abdominal Exam GI & Abdominal Exam: Normal Bowel Sounds - Neurological Exam Neurological Exam: Awake, CN II-XII Intact, Oriented x3 Assessment and Plan (1) Dizziness Status: Acute (2) Falls Status: Acute (3) Diabetes mellitus type 2 in nonobese Status: Acute (4) Gait difficulty Status: Acute - Assessment and Plan (Free Text) Plan: cont meds cont PT subacute rehab eval. ambuate
[2016-08-02] MEDS: Sodium Chloride 0.45% 1,000 ML IV SCH ×2 (10:15→23:08)
[2016-08-02 13:05] LABS: CALCIUM 8.9 mg/dL (8.4-10.2); POTASSIUM 3.9 MMOL/L (3.6-5.0)
[2016-08-02] MEDS: Insulin Regular 100 units/ml SC SCH ×2 (16:24→22:53)
[2016-08-03] MEDS: Insulin Regular 100 units/ml SC SCH ×2 (06:41→12:28)
[2016-08-03 08:02] LABS: HEMATOCRIT 33.7 % (35.0-51.0); MEAN CELL VOLUME 98.1 fl (80.0-94.0); MEAN CORPUSCULAR HEMOGLOBIN 33.5 pg (27.0-31.0); MEAN CORPUSCULAR HGB CONC 34.2 g/dL (33.0-37.0); RED CELL DISTRIBUTION WIDTH 13.9 % (11.5-14.5); WHITE BLOOD COUNT 7.1 K/uL (4.8-10.8)
[2016-08-03 08:14] LABS: CALCIUM 8.8 mg/dL (8.4-10.2); POTASSIUM 4.2 MMOL/L (3.6-5.0)
[2016-08-03 08:32] VITALS: BP 127/77; PULSE 65; RESP 18; TEMP 98.8; O2SAT 96
--- NOTE | 2016-08-03 10:06 | CP.PCM.PN ---
Subjective - Date & Time of Evaluation Date of Evaluation: 08/03/16 Time of Evaluation: 10:05 - Subjective Subjective: Patient remains stable Has no fever. Seen by PT Awaiting for subacute rehab retirement evaluation. Objective - Vital Signs/Intake and Output Vital Signs (last 24 hours): Temp Pulse Resp BP Pulse Ox 98.8 F 65 18 127/77 96 08/03/16 08:31 08/03/16 08:31 08/03/16 08:31 08/03/16 08:31 08/03/16 08:31 - Medications Medications: Current Medications Aspirin (Ecotrin) 81 mg PO DAILY [facility] Last Admin: 08/02/16 09:20 Dose: 81 mg Folic Acid (Folic Acid) 1 mg PO DAILY [facility] Last Admin: 08/02/16 09:21 Dose: 1 mg Insulin Human Regular (Humulin R) 0 units SC ACHS [facility] PRN Reason: Protocol Last Admin: 08/03/16 06:41 Dose: Not Given Metformin HCl (Glucophage) 500 mg PO BIDWM [facility] Last Admin: 08/02/16 17:37 Dose: 500 mg Metoprolol Tartrate (Lopressor) 25 mg PO Q12 [facility] Last Admin: 08/02/16 21:48 Dose: 25 mg Sitagliptin Phosphate (Januvia) 50 mg PO DAILY [facility] Thiamine HCl (Vitamin B1 Tab) 100 mg PO DAILY [facility] Last Admin: 08/02/16 09:21 Dose: 100 mg - Labs Labs: 08/03/16 07:25 08/03/16 07:25 Assessment and Plan (1) Dizziness Status: Acute (2) Falls Status: Acute (3) Diabetes mellitus type 2 in nonobese Status: Acute (4) Gait difficulty Status: Acute
== END 2016-08-03 14:05 | disposition home or self-care (01) | DRG 74 ==
LOC: H.ER 18:15 → H.ERHOLD 22:08 → H.MEDSURG1 23:14
PROVIDERS: ADMIT Family Medicine; ATTEND Family Medicine
DX: G62.1 Alcoholic polyneuropathy (principal); E11.40 Type 2 diabetes mellitus with diabetic neuropathy, unspecified; I10 Essential (primary) hypertension; N39.0 Urinary tract infection, site not specified; F10.20 Alcohol dependence, uncomplicated; R29.6 Repeated falls; Z91.81 History of falling

== ENCOUNTER 2016-10-05 16:15 | Inpatient (IN) | payer MEDICARE ==
[2016-10-05] MEDS ORDERED: Sodium Chloride 0.9% 1,000 ML IV STA ×2 (17:19→20:16)
--- NOTE | 2016-10-05 17:34 | ED PDOC ---
HPI: General Adult Time Seen by Provider: 10/05/16 16:55 Chief Complaint (Nursing): Weakness/Neurological Deficit Chief Complaint (Provider): Fall, weakness History Per: Family History/Exam Limitations: clinical condition Onset/Duration Of Symptoms: Days Current Symptoms Are (Timing): Still Present Severity: Moderate Additional Complaint(s): The pt is a 71yo male, PMHx of HTN, DM, Hypercholesterolemia, brought to the ED for evaluation of altered status, weakness s/p fall. Pt is unable to communicate properly, has poor response and a full HPI and ROS is unavailable. Pt's son is able to provide some history. Per pt's son, the patient was recently discharged from a facility (name and type of facility unknown) as he was able to make decisions by himself; son states he did not wish for the patient to be discharged. Reports he was taking care of the pt at his home but the son went away for the weekend and upon return to pt's residence, he found the patient on the floor unable to move. Son states pt was complaining of pain to his right hip, knee and redness to his left arm, buttock and upper thigh. Pt unable to provide other medical complaints. Pt. denies chest pain. Pt. moving extremities on will. Communicating with some answers. Of note, pt has been seen in this facility for falls in the past. PCP: None provided Past Medical History Reviewed: Historical Data, Nursing Documentation, Vital Signs Vital Signs: Last Vital Signs Temp Pulse 126 H 10/05/16 17:19 Resp 24 10/05/16 17:19 BP 139/91 H 10/05/16 17:19 Pulse Ox 98 10/05/16 18:45 - Medical History PMH: Anemia, Diabetes, HTN, Hyperlipidemia Denies: HIV, Chronic Kidney Disease - Family History Family History: States: Unknown Family Hx - Living Arrangements Living Arrangements: Alone - Social History Current smoker - smoking cessation education provided: No Drugs: Denies - Home Medications Home Medications: Ambulatory Orders Medication Instructions Recorded Aspirin [Ecotrin] 81 mg PO DAILY 08/03/16 Folic Acid 1 mg PO DAILY tab 08/03/16 Insulin Human Regular [HumuLIN R] 0 units SC ACHS ml 08/03/16 Metoprolol Tartrate [Lopressor] 25 mg PO Q12 tab 08/03/16 SITagliptin [Januvia] 50 mg PO DAILY tab 08/03/16 Thiamine [Vitamin B1 Tab] 100 mg PO DAILY tab 08/03/16 metFORMIN [glucOPHAGE] 500 mg PO BIDWM tab 08/03/16 - Allergies Allergies/Adverse Reactions: Allergies Allergy/AdvReac Type Severity Reaction Status Date / Time No Known Allergies Allergy Verified 10/05/16 16:18 Review of Systems Review Of Systems: ROS cannot be obtained secondary to pt's inabilty to answer questions. (pt not responding to questions) Musculoskeletal: Positive for: Arm Pain (redness to left arm, buttock and upper leg), Leg Pain (right hip, knee pain.) Neurological: Positive for: Weakness, Altered Mental Status Physical Exam - Reviewed Nursing Documentation Reviewed: Yes Vital Signs Reviewed: Yes - Physical Exam Appears: Positive for: Uncomfortable Head Exam: Positive for: ATRAUMATIC, NORMAL INSPECTION, NORMOCEPHALIC Skin: Positive for: Dry Eye Exam: Positive for: Normal appearance, EOMI, PERRL. Negative for: Periorbital swelling, Periorbital tenderness ENT: Positive for: Normal ENT Inspection. Negative for: Nasal Congestion, Pharyngeal Erythema, Tonsillar Exudate Neck: Positive for: Normal, Painless ROM, Supple Cardiovascular/Chest: Positive for: Tachycardia. Negative for: Edema Respiratory: Positive for: Normal Breath Sounds. Negative for: Accessory Muscle Use, Wheezing, Respiratory Distress Gastrointestinal/Abdominal: Positive for: Normal Exam, Soft. Negative for: Tenderness Back: Negative for: L CVA Tenderness, R CVA Tenderness Extremity: Positive for: Tenderness (tenderness right hip, right femur, right knee.), Other (erythema L buttox; L forearm; L upper leg mild; nontender). Negative for: Normal ROM (limited ROM of R hip due to pain), Deformity, Swelling Neurologic/Psych: Positive for: Alert, Oriented (x2). Negative for: Facial Droop - Laboratory Results Result Diagrams: 10/05/16 17:30 10/05/16 17:30 Interpretation Of Abn Labs: 11.2 wbc, 8.6/3.3, 11.9 hg, 7.31 ph, 2.6 lactate, 151 Na, 5 K, 120 Chl - ECG ECG: Positive for: Interpreted By Me, Viewed By Me ECG Rhythm: Positive for: Sinus Tachycardia Interpretation Of Abn EKG: PVCs O2 Sat by Pulse Oximetry: 98 Pulse Ox Interpretation: Normal - Radiology X-Ray: Interpreted by Me, Viewed By Me X-Ray Interpretation: No Acute Disease - Progress ED Course And Treament: 184: Stable. Dr. Limon to take over care. Pending CT head and hip. Continue fluids. Has acute renal insuff. Dehydration. Repeat vbg at 8pm. Medical Decision Making Medical Decision Making: Time: 1700 Impression: Medical evaluation r/o rhabdomyolysis Plan: -- XR Right Hip -- XR Right femur -- Bloodwork -- CT Head -- IV Fluids Reassess Time: 1756 CXR Impression per provider: No acute findings Ordered CT right lower extremity for further evaluation, r/o acute fracture. Scribe Attestation: Documented by Malika Atkinson acting as a scribe for Jomar Mckinley MD. Provider Attestation: All medical record entries made by the Scribe were at my direction and personally dictated by me. I have reviewed the chart and agree that the record accurately reflects my personal performance of the history, physical exam, medical decision making, and the department course for this patient. I have also personally directed, reviewed, and agree with the discharge instructions and disposition. Disposition - Clinical Impression Clinical Impression: Renal insufficiency, Dehydration, Hip pain, Weakness - Patient ED Disposition Is Patient to be Admitted: Transfer of Care - Disposition Disposition: Transfer of Care Disposition Time: 18:46 Condition: FAIR Patient Signed Over To: John Limon
[2016-10-05 17:52] LABS: BASO # 0.1 K/uL (0.0-0.2); BASO % 1.1 % (0.0-2.0); EOS % 0.4 % (0.0-4.0); HEMATOCRIT 37.6 % (35.0-51.0); LYMPH # 1.1 K/uL (1.0-4.3); LYMPH % 9.5 % (20.0-40.0); MEAN CORPUSCULAR HEMOGLOBIN 30.8 pg (27.0-31.0); MEAN CORPUSCULAR HGB CONC 31.8 g/dL (33.0-37.0); MEAN PLATELET VOLUME 11.2 fl (7.2-11.7); MONO # 1.5 K/uL (0.0-0.8); MONO % 13.2 % (0.0-10.0); NEUT # 8.5 K/uL (1.8-7.0); NEUT % 75.8 % (50.0-75.0); NRBC % 0.1 % (0.0-0.0); PLATELET COUNT 152 K/uL (130-400); RED CELL DISTRIBUTION WIDTH 14.9 % (11.5-14.5); WHITE BLOOD COUNT 11.2 K/uL (4.8-10.8)
[2016-10-05 17:57] LABS: ALB/GLOB RATIO 0.9 (1.0-2.1); ALCOHOL SERUM < 10 mg/dl (0-10); ALKALINE PHOSPHATASE 105 U/L (38-126); ALT/SGPT 22 U/L (21-72); AST/SGOT 15 U/L (17-59); BILIRUBIN,TOTAL 0.5 mg/dl (0.2-1.3); BLOOD UREA NITROGEN 86 mg/dl (9-20); CALCIUM 9.6 mg/dL (8.4-10.2); CARBON DIOXIDE 14 mmol/L (22-30); CHLORIDE 120 mmol/L (98-107); GFR AFRICAN-AMERICAN 23; GLUCOSE,RANDOM 288 mg/dL (75-110); MAGNESIUM 2.2 MG/DL (1.6-2.3); PHOSPHOROUS 4.9 mg/dl (2.5-4.5); SODIUM 151 mmol/l (132-148); TOTAL PROTEIN 8.2 G/DL (6.3-8.2)
[2016-10-05 18:29] LABS: VENOUS BLOOD GAS PCO2 27 mmHg (40-60); VENOUS BLOOD PH 7.31 (7.32-7.43)
[2016-10-05 18:55] LABS: BASOPHIL 1 % (0-2); NEUTROPHIL 73 % (42-75); TOTAL CELLS COUNTED 100
--- NOTE | 2016-10-05 19:06 | ED PDOC ---
- Laboratory Results Result Diagrams: 10/05/16 17:30 10/05/16 17:30 - ECG O2 Sat by Pulse Oximetry: 98 Medical Decision Making Medical Decision Making: Receiving Sign Out: Patient singed out to me by Dr. Mckinley pending CT results. 8PM: No signs of acute hemorrhage or fracture on CTs. Pt. is now starting to be more awake, talking more, asking to go home. Explained to patient severity of his condition, understands he needs to stay. Lactate is clearing. Pt. remains tachy. Dry mucus membranes. No signs of infection. Dr. Day aware. Scribe Attestation: Documented by Malika Atkinson acting as a scribe for John Limon MD. Provider Attestation: All medical record entries made by the Scribe were at my direction and personally dictated by me. I have reviewed the chart and agree that the record accurately reflects my personal performance of the history, physical exam, medical decision making, and the department course for this patient. I have also personally directed, reviewed, and agree with the discharge instructions and disposition. Disposition - Clinical Impression Clinical Impression: Renal insufficiency, Dehydration, Hip pain, Weakness - POA Present On Arrival: None - Disposition Disposition: Routine/Home Disposition Time: 21:40 Condition: FAIR
[2016-10-05 19:28] LABS: RBC URINE 9 /hpf (0-3); URINE BILIRUBIN NEGATIVE (NEGATIVE); URINE BLOOD MODERATE (NEGATIVE); URINE COLOR YELLOW (YELLOW); URINE GLUCOSE (UA) NEG (Normal); URINE KETONE NEGATIVE (NEGATIVE); URINE LEUKOCYTE ESTERASE NEG Leu/uL (Negative); URINE PROTEIN 100 mg/dL (NEGATIVE); URINE UROBILINOGEN 0.2-1.0 mg/dL (0.2-1.0); WBC URINE 5 /hpf (0-5)
--- NOTE | 2016-10-05 20:02 | CT ---
EXAM: CT Head Without Intravenous Contrast CLINICAL HISTORY: 71 years old, male; Pain; Headache; Headache not specified TECHNIQUE: Axial computed tomography images of the head/brain without intravenous contrast. This CT exam was performed using one or more of the following dose reduction techniques: automated exposure control, adjustment of the mA and/or kV according to patient size, and/or use of iterative reconstruction technique. Coronal and sagittal reformatted images were created and reviewed. EXAM DATE/TIME: 10/05/2016 5:20 PM COMPARISON: CT - HEAD W/O CONTRAST 07/29/2016 8:36:03 PM FINDINGS: Brain: There is dilatation of sulci gyri and ventricles. There is no midline shift. There is decreased attenuation in periventricular white matter. Lacunar infarcts in the basal ganglia, unchanged. There are focal periventricular white matter infarcts, unchanged. There are basal ganglia calcifications. There are no focal masses. There are no focal hemorrhages. Murray-white differentiation is visualized. Ventricles: See above Bones: Cranial vault is intact. Soft tissues: unremarkable Sinuses: There is no acute sinusitis. Ears and mastoids: Middle ears and mastoids are unremarkable. Orbits: Orbital contents are unremarkable. IMPRESSION: Atrophy and small vessel disease, no acute intracranial abnormality
--- NOTE | 2016-10-05 20:04 | CT ---
EXAM: CT Right Lower Extremity Without Intravenous Contrast, Hip CLINICAL HISTORY: 71 years old, male; Pain; Hip; Right; Additional info: Pain, eval for acute FX TECHNIQUE: Axial computed tomography images of the right hip without intravenous contrast. This CT exam was performed using one or more of the following dose reduction techniques: automated exposure control, adjustment of the mA and/or kV according to patient size, and/or use of iterative reconstruction technique. Coronal and sagittal reformatted images were created and reviewed. EXAM DATE/TIME: 10/05/2016 6:00 PM COMPARISON: CT - hips, 04/21/15.Report of the prior study is not provided for review. FINDINGS: Bones/joints: Visualized portion of the ilium is intact. Right ischium and pubis are intact. There is severe degenerative change at the right hip. There is joint space narrowing. There is subchondral sclerosis and cyst formation in the acetabulum. There is subchondral sclerosis in the femoral head with multiple cysts. There is a subchondral lucent crescent in the femoral head with fragmentation of the subcortical bone. Soft tissues: There is minimal soft tissue bruising at the right hip. Vasculature: There are vascular calcifications. Bowel: There is a nonobstructed gas pattern in the visualized pelvis. There is colonic wall thickening. Bladder: Bladder is partially distended. There is a Triplett catheter. There is air in the bladder. There is mild bladder wall thickening. No stones. Reproductive: Visualized portions of the seminal vesicles and prostate are unremarkable. There are calcifications in the vas deferens. 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
[2016-10-05 20:43] LABS: VENOUS BLOOD GAS BASE EXCESS -8.4 mmol/L (0.0-2.0); VENOUS BLOOD GAS PCO2 39 mmHg (40-60); VENOUS BLOOD PH 7.27 (7.32-7.43)
[2016-10-05 21:02] LABS: PARTIAL THROMBOPLASTIN TIME 27.6 Seconds (25.6-37.1)
[2016-10-05] MEDS ORDERED: diltiaZEM 100 mg Vial ( ADD-VANTAGE ) IV ONE (22:23)
[2016-10-05] MEDS ORDERED: Metoprolol 1 mg/ml Inj IVP STA (22:48)
[2016-10-06] MEDS ORDERED: Sodium Chloride 0.9% 1,000 ML IV SCH (05:30)
--- NOTE | 2016-10-06 08:42 | CARD ---
APPROVED REPORT EKG Measurement Heart [id number] <Conclusion> Atrial fibrillation with rapid ventricular response with premature ventricular or aberrantly conducted complexes Nonspecific ST and T wave abnormality Abnormal ECG
[2016-10-06] MEDS: Insulin Regular 100 units/ml SC SCH ×4 (09:30→21:46)
--- NOTE | 2016-10-06 10:24 | RAD ---
HISTORY: Sepsis Patient COMPARISON: 07/29/2016 FINDINGS: LUNGS: There are increased streaky opacities in both lungs. No focal consolidation. PLEURA: No significant pleural effusion identified, no pneumothorax apparent. CARDIOVASCULAR: The heart is normal in size. Atherosclerotic aortic arch calcifications are present. OSSEOUS STRUCTURES: No significant abnormalities. VISUALIZED UPPER ABDOMEN: Normal. OTHER FINDINGS: None. IMPRESSION: Findings could represent reactive small airway disease/ atypical or viral pneumonitis. No lobar pneumonia.
--- NOTE | 2016-10-06 11:43 | RAD ---
PROCEDURE: Gap flow identified she would do a very good job some happy with that via left HISTORY: Pain. No history of recent/ related trauma provided COMPARISON: None TECHNIQUE: Standard protocol for this study/examination. FINDINGS: Osteonecrosis right femoral head. No appreciable collapse identified and there is preservation of the glenohumeral relationship. No acute findings related to/accounting for the clinical presentation. IMPRESSION: Osteonecrosis right femoral head.
--- NOTE | 2016-10-06 11:45 | RAD ---
PROCEDURE: Right femur HISTORY: Pain. No history of recent/ related trauma provided COMPARISON: October 06, 2016. Right hip TECHNIQUE: Standard protocol for this study/examination. FINDINGS: No significant/acute osseous, articular or soft tissue abnormalities. Superficial femoral artery stent identified. Incompletely visualized degenerative changes right knee. IMPRESSION: No acute findings related to/accounting for the clinical presentation.
--- NOTE | 2016-10-06 11:47 | RAD ---
PROCEDURE: Right Knee Radiographs. HISTORY: Pain. No history of recent/ related trauma provided COMPARISON: October 05, 2016. FINDINGS: BONES: Mild degenerative changes primarily affecting medial compartment. JOINTS: Normal. No osteoarthritis. JOINT EFFUSION: None. OTHER FINDINGS: None. IMPRESSION: No acute findings related to/accounting for the clinical presentation.
[2016-10-06] MEDS ORDERED: Fluconazole IV 100mg/50 ml NS 50 ML IVPB ONE (12:45)
[2016-10-06 12:54] LABS: HEMATOCRIT 30.6 % (35.0-51.0); MEAN CELL VOLUME 97.6 fl (80.0-94.0); MEAN CORPUSCULAR HEMOGLOBIN 31.4 pg (27.0-31.0); MEAN CORPUSCULAR HGB CONC 32.2 g/dL (33.0-37.0); WHITE BLOOD COUNT 10.1 K/uL (4.8-10.8)
[2016-10-06] MEDS ORDERED: Sodium Chloride 0.45% 1,000 ML IV SCH (13:00)
[2016-10-06 13:04] LABS: CALCIUM 8.6 mg/dL (8.4-10.2); PHOSPHOROUS 3.8 mg/dl (2.5-4.5); POTASSIUM 4.2 MMOL/L (3.6-5.0)
--- NOTE | 2016-10-06 14:07 | CP.PCM.CON ---
History of Present Illness - History of Present Illness History of Present Illness: Infectious Disease Consult Note- asked to see this patient at the request of for pos blood cx. HPI- History obtained mostly from the medical chart and patient's nurse. Pt. is a 71 year old amle with PMH of DM II, HTN, who was brought in for AMS, weakness and s/p fall. apparently pt. was recently d/c from rehab and was living with son who apparently fpund patient on the floor and pt c/o piani n hip and knee and arm. no fractures based on the imaging reports here so far upon admission. Pt. currently is awake and answers my questions. He can tell me time and place but he is not sure why he is here at the hospital and he does not know why he was at rehab. as per pt's nurse he has been having couple bouts of loose foul smelling stool so far today. pt. was found to have gram pos cocci in admission blood cx. Review of Systems - Review of Systems Review of Systems: ROS- denies any fever or chills, denies any LEVINE, denies any cough, denies any sob, denies any chest pain, denies any abd. pain, denies any dysurea ta home, has no inserted now, + diarrhea for past few days, Past Patient History - Past Medical History & Family History Past Medical History?: Yes - Past Social History Smoking Status: Light Smoker < 10 Cigarettes Daily Home Situation {Lives}: With Family - CARDIAC Hx Hypertension: Yes - PULMONARY Hx Respiratory Disorders: No - NEUROLOGICAL Hx Neurological Disorder: Yes - HEENT Hx HEENT Problems: No - RENAL Hx Chronic Kidney Disease: No - ENDOCRINE/METABOLIC Hx Endocrine Disorders: Yes Hx Diabetes Mellitus Type 2: Yes - HEMATOLOGICAL/ONCOLOGICAL Hx Blood Disorders: No - INTEGUMENTARY Hx Dermatological Problems: No - MUSCULOSKELETAL/RHEUMATOLOGICAL Hx Musculoskeletal Disorders: Yes - GASTROINTESTINAL Hx Gastrointestinal Disorders: No - GENITOURINARY/GYNECOLOGICAL Hx Genitourinary Disorders: No - PSYCHIATRIC Hx Psychophysiologic Disorder: No - SURGICAL HISTORY Hx Surgeries: No - ANESTHESIA Hx Anesthesia: No Hx Anesthesia Reactions: No Hx Malignant Hyperthermia: No Meds Allergies/Adverse Reactions: Allergies Allergy/AdvReac Type Severity Reaction Status Date / Time No Known Allergies Allergy Verified 10/05/16 16:18 - Medications Medications: Current Medications Enoxaparin Sodium (Lovenox) 30 mg SC DAILY [facility] PRN Reason: Protocol Diltiazem HCl 100 mg/ Sodium (Chloride) 100 mls @ 5 mls/hr IV .Q20H ONE; 5 MG/ HR PRN Reason: Protocol Stop: 10/06/16 18:44 Last Admin: 10/05/16 22:40 Dose: 5 mls/hr Vancomycin HCl 1 gm/ Sodium (Chloride) 250 mls @ 166.667 mls/hr IVPB ONCE ONE Stop: 10/06/16 14:29 Sodium Chloride (Sodium Chloride 0.45%) 1,000 mls @ 120 mls/hr IV .Q8H20M [facility] Stop: 10/07/16 13:00 Insulin Human Regular (Humulin R) 0 units SC ACHS [facility] PRN Reason: Protocol Physical Exam - Constitutional Appears: No Acute Distress - Head Exam Head Exam: ATRAUMATIC - Eye Exam Eye Exam: PERRL - ENT Exam ENT Exam: Normal Oropharynx - Neck Exam Neck exam: Positive for: Full Rom - Respiratory Exam Respiratory Exam: NORMAL BREATHING PATTERN Additional comments: good breath sounds b/l no wheezing slightly decreased at left base - Cardiovascular Exam Cardiovascular Exam: RRR, +S1, +S2 - GI/Abdominal Exam GI & Abdominal Exam: Normal Bowel Sounds, Soft Additional comments: NT, ND No guarding, No rebound - Extremities Exam Additional comments: no edema B/l LE Right lateral foot small round dry ulcer , no active d/c this is in region where pt. has had prior amputation - Neurological Exam Neurological exam: Alert, Oriented x3 Results - Vital Signs Recent Vital Signs: Last Vital Signs Temp 98.7 F 10/06/16 12:38 Pulse 92 H 10/06/16 12:38 Resp 18 10/06/16 12:38 BP 131/79 10/06/16 12:38 Pulse Ox 100 10/06/16 12:38 - Labs Result Diagrams: 10/07/16 08:30 10/07/16 08:30 Labs: Laboratory Results - last 24 hr 10/06/16 10/06/16 12:30 12:30 WBC 10.1 RBC 3.13 L Hgb 9.8 L D Hct 30.6 L MCV 97.6 H MCH 31.4 H MCHC 32.2 L RDW 15.0 H Plt Count 150 Sodium 148 Potassium 4.2 Chloride 119 H Carbon Dioxide 15 L Anion Gap 18 BUN 76 H Creatinine 2.7 H Est GFR ( Amer) 28 Est GFR (Non-Af Amer) 23 Random Glucose 214 H Calcium 8.6 Phosphorus 3.8 Magnesium 2.0 Laboratory Results - last 72 hr 10/05/16 10/05/16 10/05/16 17:30 17:30 18:24 WBC 11.2 H D RBC 3.88 L Hgb 11.9 L Hct 37.6 MCV 97.0 H MCH 30.8 MCHC 31.8 L RDW 14.9 H Plt Count 152 MPV 11.2 Neut % (Auto) 75.8 H Lymph % (Auto) 9.5 L Stewart % (Auto) 13.2 H Eos % (Auto) 0.4 Baso % (Auto) 1.1 Neut # 8.5 H Lymph # 1.1 Stewart # 1.5 H Eos # 0.0 Baso # 0.1 Neutrophils % (Manual) 73 Lymphocytes % (Manual) 13 L Monocytes % (Manual) 13 H Basophils % (Manual) 1 Platelet Estimate Normal PT INR APTT pO2 41 VBG pH 7.31 L VBG pCO2 27 L VBG HCO3 15.6 VBG Total CO2 14.4 L VBG O2 Sat (Calc) 80.2 H VBG Base Excess -11.0 L VBG Potassium 6.0 H Glucose 293 H Lactate 2.6 H FiO2 21.0 Sodium 151 H 142.0 Potassium 5.0 Chloride 120 H 123.0 H Carbon Dioxide 14 L Anion Gap 22 H BUN 86 H Creatinine 3.3 H Est GFR ( Amer) 23 Est GFR (Non-Af Amer) 19 POC Glucose (mg/dL) Random Glucose 288 H Calcium 9.6 Phosphorus 4.9 H Magnesium 2.2 Iron Total Bilirubin 0.5 AST 15 L ALT 22 Alkaline Phosphatase 105 Total Creatine Kinase 187 H Troponin I 0.0130 NT-Pro-B Natriuret Pep 1750 H Total Protein 8.2 Albumin 3.8 Globulin 4.4 H Albumin/Globulin Ratio 0.9 L Venous Blood Potassium 6.0 H Urine Color Urine Clarity Urine pH Ur Specific Gore Urine Protein Urine Glucose (UA) Urine Ketones Urine Blood Urine Nitrate Urine Bilirubin Urine Urobilinogen Ur Leukocyte Esterase Urine RBC (Auto) Urine Microscopic WBC Ur Squamous Epith Cells Urine Yeast (Budding) Alcohol, Quantitative < 10 10/05/16 10/05/16 10/05/16 19:09 20:14 20:35 WBC RBC Hgb Hct MCV MCH MCHC RDW Plt Count MPV Neut % (Auto) Lymph % (Auto) Stewart % (Auto) Eos % (Auto) Baso % (Auto) Neut # Lymph # Stewart # Eos # Baso # Neutrophils % (Manual) Lymphocytes % (Manual) Monocytes % (Manual) Basophils % (Manual) Platelet Estimate PT 13.2 H INR 1.2 APTT 27.6 pO2 14 L VBG pH 7.27 L VBG pCO2 39 L VBG HCO3 16.1 VBG Total CO2 19.1 L VBG O2 Sat (Calc) 19.9 L VBG Base Excess -8.4 L VBG Potassium 4.7 Glucose 299 H Lactate 2.0 FiO2 21.0 Sodium 149.0 H Potassium Chloride 120.0 H Carbon Dioxide Anion Gap BUN Creatinine Est GFR ( Amer) Est GFR (Non-Af Amer) POC Glucose (mg/dL) Random Glucose Calcium Phosphorus Magnesium Iron Total Bilirubin AST ALT Alkaline Phosphatase Total Creatine Kinase Troponin I NT-Pro-B Natriuret Pep Total Protein Albumin Globulin Albumin/Globulin Ratio Venous Blood Potassium 4.7 Urine Color Yellow Urine Clarity Slighty-cloudy Urine pH 5.0 Ur Specific Gore 1.017 Urine Protein 100 Urine Glucose (UA) Neg Urine Ketones Negative Urine Blood Moderate Urine Nitrate Negative Urine Bilirubin Negative Urine Urobilinogen 0.2-1.0 Ur Leukocyte Esterase Neg Urine RBC (Auto) 9 H Urine Microscopic WBC 5 Ur Squamous Epith Cells < 1 Urine Yeast (Budding) Few H Alcohol, Quantitative 10/06/16 10/06/16 10/06/16 05:25 11:14 12:30 WBC 10.1 RBC 3.13 L Hgb 9.8 L D Hct 30.6 L MCV 97.6 H MCH 31.4 H MCHC 32.2 L RDW 15.0 H Plt Count 150 MPV Neut % (Auto) Lymph % (Auto) Stewart % (Auto) Eos % (Auto) Baso % (Auto) Neut # Lymph # Stewart # Eos # Baso # Neutrophils % (Manual) Lymphocytes % (Manual) Monocytes % (Manual) Basophils % (Manual) Platelet Estimate PT INR APTT pO2 VBG pH VBG pCO2 VBG HCO3 VBG Total CO2 VBG O2 Sat (Calc) VBG Base Excess VBG Potassium Glucose Lactate FiO2 Sodium Potassium Chloride Carbon Dioxide Anion Gap BUN Creatinine Est GFR ( Amer) Est GFR (Non-Af Amer) POC Glucose (mg/dL) 279 H 248 H Random Glucose Calcium Phosphorus Magnesium Iron Total Bilirubin AST ALT Alkaline Phosphatase Total Creatine Kinase Troponin I NT-Pro-B Natriuret Pep Total Protein Albumin Globulin Albumin/Globulin Ratio Venous Blood Potassium Urine Color Urine Clarity Urine pH Ur Specific Gore Urine Protein Urine Glucose (UA) Urine Ketones Urine Blood Urine Nitrate Urine Bilirubin Urine Urobilinogen Ur Leukocyte Esterase Urine RBC (Auto) Urine Microscopic WBC Ur Squamous Epith Cells Urine Yeast (Budding) Alcohol, Quantitative 10/06/16 10/06/16 12:30 14:59 WBC RBC Hgb Hct MCV MCH MCHC RDW Plt Count MPV Neut % (Auto) Lymph % (Auto) Stewart % (Auto) Eos % (Auto) Baso % (Auto) Neut # Lymph # Stewart # Eos # Baso # Neutrophils % (Manual) Lymphocytes % (Manual) Monocytes % (Manual) Basophils % (Manual) Platelet Estimate PT INR APTT pO2 VBG pH VBG pCO2 VBG HCO3 VBG Total CO2 VBG O2 Sat (Calc) VBG Base Excess VBG Potassium Glucose Lactate FiO2 Sodium 148 Potassium 4.2 Chloride 119 H Carbon Dioxide 15 L Anion Gap 18 BUN 76 H Creatinine 2.7 H Est GFR ( Amer) 28 Est GFR (Non-Af Amer) 23 POC Glucose (mg/dL) Random Glucose 214 H Calcium 8.6 Phosphorus 3.8 Magnesium 2.0 Iron 40 L Total Bilirubin AST ALT Alkaline Phosphatase Total Creatine Kinase Troponin I NT-Pro-B Natriuret Pep Total Protein Albumin Globulin Albumin/Globulin Ratio Venous Blood Potassium Urine Color Urine Clarity Urine pH Ur Specific Gore Urine Protein Urine Glucose (UA) Urine Ketones Urine Blood Urine Nitrate Urine Bilirubin Urine Urobilinogen Ur Leukocyte Esterase Urine RBC (Auto) Urine Microscopic WBC Ur Squamous Epith Cells Urine Yeast (Budding) Alcohol, Quantitative Microbiology 10/05/16 18:49 Blood Blood Culture - Preliminary Gram Positive Cocci 10/05/16 18:49 Blood Gram Stain - Final Accession No. : [id number] Patient Name / ID : GRACE ANTON / [id number] Exam Date : 10/05/2016 17:33:20 ( Approved ) Study Comment : Sex / Age : M / [id number] Creator : Lauri Thomas Dictator : Erika Mckinley MD Airline Manager : Stretch Machine Operator : Erika Mckinley MD Approver2 : Report Date : 10/05/2016 17:59:53 My Comment : HISTORY: Sepsis Patient COMPARISON: 07/29/2016 FINDINGS: LUNGS: There are increased streaky opacities in both lungs. No focal consolidation. PLEURA: No significant pleural effusion identified, no pneumothorax apparent. CARDIOVASCULAR: The heart is normal in size. Atherosclerotic aortic arch calcifications are present. OSSEOUS STRUCTURES: No significant abnormalities. VISUALIZED UPPER ABDOMEN: Normal. OTHER FINDINGS: None. IMPRESSION: Findings could represent reactive small airway disease/ atypical or viral pneumonitis. No lobar pneumonia. Assessment & Plan (1) Renal insufficiency Status: Deleted Priority: High (2) Weakness Status: Chronic Priority: High (3) Diabetes Status: Acute (4) Bacteremia due to Gram-positive bacteria Status: Acute Priority: High - Assessment and Plan (Free Text) Assessment: A/P- 71 year old amle with h/o DM ii, HTN s/p fall and found to have GPC in prelim blood cx. Pt. is currently asymptomatic and does not look septic. afebrile and normal wbc count. + Loose stools. Not sure if pt. was on any abx recently at the rehab. upon further review of the med records pt. 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 plan- check 2 more blood cx. await ID and sensitivity of the prelim blood cx. check TTE r/o any vegetations. has received 1 dose IV vanco today. in light of the acute renal insufficiency dose renally. Keep trough <20. check stool c.diff as well. may need to have right foot MRI done to r/o any residual OM ( if no CI to MRI). check ESR. Thank you for allowing me to take part in the care of this patient.
[2016-10-06 15:17] LABS: IRON 40 ug/dL (49-181)
--- NOTE | 2016-10-06 16:22 | CP.PCM.CON ---
History of Present Illness - History of Present Illness History of Present Illness: History obtained mostly from the medical chart Pt. is a 71 year old male with PMH of DM II, HTN, who was brought in for AMS, weakness and s/p fall. apparently pt. 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 Review of all previous EKGs were NSR pt. was found to have gram pos cocci in admission blood cx. Review of Systems - Review of Systems Systems not reviewed;Unavailable: Altered Mental Status - Cardiovascular Cardiovascular: Irregular Heart Rhythm - Respiratory Respiratory: Dyspnea Past Patient History - Past Medical History & Family History Past Medical History?: Yes - Past Social History Smoking Status: Light Smoker < 10 Cigarettes Daily Home Situation {Lives}: With Family - CARDIAC Hx Hypertension: Yes - PULMONARY Hx Respiratory Disorders: No - NEUROLOGICAL Hx Neurological Disorder: Yes - HEENT Hx HEENT Problems: No - RENAL Hx Chronic Kidney Disease: No - ENDOCRINE/METABOLIC Hx Endocrine Disorders: Yes Hx Diabetes Mellitus Type 2: Yes - HEMATOLOGICAL/ONCOLOGICAL Hx Blood Disorders: No - INTEGUMENTARY Hx Dermatological Problems: No - MUSCULOSKELETAL/RHEUMATOLOGICAL Hx Musculoskeletal Disorders: Yes - GASTROINTESTINAL Hx Gastrointestinal Disorders: No - GENITOURINARY/GYNECOLOGICAL Hx Genitourinary Disorders: No - PSYCHIATRIC Hx Psychophysiologic Disorder: No - SURGICAL HISTORY Hx Surgeries: No - ANESTHESIA Hx Anesthesia: No Hx Anesthesia Reactions: No Hx Malignant Hyperthermia: No Meds Allergies/Adverse Reactions: Allergies Allergy/AdvReac Type Severity Reaction Status Date / Time No Known Allergies Allergy Verified 10/05/16 16:18 - Medications Medications: Current Medications Enoxaparin Sodium (Lovenox) 30 mg SC DAILY [facility] PRN Reason: Protocol Diltiazem HCl 100 mg/ Sodium (Chloride) 100 mls @ 5 mls/hr IV .Q20H ONE; 5 MG/ HR PRN Reason: Protocol Stop: 10/06/16 18:44 Last Admin: 10/05/16 22:40 Dose: 5 mls/hr Sodium Chloride (Sodium Chloride 0.45%) 1,000 mls @ 120 mls/hr IV .Q8H20M [facility] Stop: 10/07/16 13:00 Last Admin: 10/06/16 16:19 Dose: 120 mls/hr Insulin Human Regular (Humulin R) 0 units SC ACHS [facility] PRN Reason: Protocol Physical Exam - Constitutional Appears: Unkempt - ENT Exam ENT Exam: Normal Exam - Neck Exam Neck exam: Positive for: Normal Inspection - Cardiovascular Exam Cardiovascular Exam: Irregular Rhythm - Extremities Exam Extremities exam: Positive for: pedal edema Results - Vital Signs Recent Vital Signs: Last Vital Signs Temp 98.7 F 10/06/16 12:38 Pulse 92 H 10/06/16 12:38 Resp 18 10/06/16 12:38 BP 131/79 10/06/16 12:38 Pulse Ox 100 10/06/16 12:38 - Labs Result Diagrams: 10/06/16 12:30 10/06/16 12:30 Labs: Laboratory Results - last 24 hr 10/06/16 10/06/16 10/06/16 12:30 12:30 14:59 WBC 10.1 RBC 3.13 L Hgb 9.8 L D Hct 30.6 L MCV 97.6 H MCH 31.4 H MCHC 32.2 L RDW 15.0 H Plt Count 150 Sodium 148 Potassium 4.2 Chloride 119 H Carbon Dioxide 15 L Anion Gap 18 BUN 76 H Creatinine 2.7 H Est GFR ( Amer) 28 Est GFR (Non-Af Amer) 23 Random Glucose 214 H Calcium 8.6 Phosphorus 3.8 Magnesium 2.0 Iron 40 L TIBC 195 L % Saturation 21 - EKG Data EKG comments: A Fib RVR 138 BPM, PVCs vs aberrancy Assessment & Plan - Assessment and Plan (Free Text) Assessment: New onset A Fib Grame +ve bactremia Osteonecrosis of Rt Femoral head CKD Plan: Cont. Enoxaparin Sodium (Lovenox) 30 mg SC DAILY [facility] PRN Reason: Protocol Diltiazem HCl 100 mg/ Sodium (Chloride) 100 mls @ 5 mls/hr IV .Q20H ONE; 5 MG/ HR PRN Reason: Protocol Stop: 10/06/16 18:44 Last Admin: 10/05/16 22:40 Dose: 5 mls/hr Sodium Chloride (Sodium Chloride 0.45%) 1,000 mls @ 120 mls/hr IV .Q8H20M [facility] Stop: 10/07/16 13:00 Last Admin: 10/06/16 16:19 Dose: 120 mls/hr Insulin Human Regular (Humulin R) 0 units SC ACHS [facility] PRN Reason: Protocol Obtain TSH Echo
--- NOTE | 2016-10-06 16:45 | CP.PCM.HP ---
History of Present Illness - History of Present Illness History of Present Illness: CC: Weakness and Fall. 71 y/o M, brought by EMS to [facility] for evaluation of fall and generalized weakness, onset 5 days [employer] with no improvement. Pt c/o of R hip pain with movement and L shoulder associated to recent trauma. Worsening symptoms: Diarrhea, AMS and in ER found with dehydration, also Pt went into rapid A Fib several times, HR of 220, Cardizem drip was given and there after HR decreased to 140s. Aggravated factor: Pt unable to stand from a seated position without assistance. Previous Hx; Pt lives along and was found in the floor of his house ( unknown for how long) by his Son covered by feces unable to get out from floor, c/o of R hip/leg and L shoulder pain. Recently, he was discharged from a [facility] facility 2nd to fall/gait difficulty. Denied: Fever, chills, n/v, abdominal pain, dysuria, CP, SOB, cough, sick contact, recent travel. PMHx: Falls, Osteomyelitis R foot bone base on , Tx with IV abx. Hx. Renal insufficiency, DMII, DM Neuropathy, HTN, Hyperlipidemia, Anemia, alcohol abuse. CXR shows: Small airway disease/ atypical or viral Pneumonitis. No lobar PNA. EKG: A Fib with RVR with premature ventricular or aberrantly conducted complexes. Femur X-Ray: No recent trauma. Head CT: Atrophy and small vessels disease, no intracranial abnormality. Hip/Pelvis X-Ray: Osteonecrosis R femoral head. Lower Ext. CT: Degenerative changes with probable ischemic necrosis of the R femoral head, no acute displaced fracture. Blood C-S = Gram + cocci. Present on Admission - Present on Admission Any Indicators Present on Admission: Yes History of Uncontrolled Diabetes: Yes Review of Systems - Constitutional Constitutional: Frequent Falls, Weakness - EENT Eyes: Other (negative) Ears: Other (negative) Nose/Mouth/Throat: Other (negative) - Cardiovascular Cardiovascular: Irregular Heart Rhythm, Rapid Heart Rate - Respiratory Respiratory: Other (negative) - Gastrointestinal Gastrointestinal: Diarrhea, Fecal Incontinence, Loose Stools - Genitourinary Genitourinary: Other (negative) - Musculoskeletal Musculoskeletal: Abnormal Gait, Muscle Weakness (L/E), Other (R hip, L shoulder pain) - Integumentary Integumentary: Erythema - Neurological Neurological: Confusion, Frequent Falls, Memory Loss - Psychiatric Psychiatric: Confusion - Endocrine Endocrine: Other (negative) - Hematologic/Lymphatic Hematologic: Other (anemia) Past Patient History - Past Medical History & Family History Past Medical History?: Yes Pertinent Family History: Unknown - Past Social History Smoking Status: Light Smoker < 10 Cigarettes Daily Alcohol: Occasional Home Situation {Lives}: With Family - CARDIAC Hx Cardiac Disorders: Yes Hx Hypercholesterolemia: Yes Hx Hypertension: Yes - PULMONARY Hx Respiratory Disorders: No - NEUROLOGICAL Hx Neurological Disorder: No - HEENT Hx HEENT Problems: No - RENAL Hx Chronic Kidney Disease: Yes Other/Comment: Renal Insufficiency. - ENDOCRINE/METABOLIC Hx Endocrine Disorders: Yes Hx Diabetes Mellitus Type 2: Yes - HEMATOLOGICAL/ONCOLOGICAL Hx Blood Disorders: Yes Hx Anemia: Yes - INTEGUMENTARY Hx Dermatological Problems: No - MUSCULOSKELETAL/RHEUMATOLOGICAL Hx Musculoskeletal Disorders: Yes (R hip pain) Hx Falls: Yes Hx Osteomyelitis: Yes (R foot) Hx Unsteady Gait: Yes - GASTROINTESTINAL Hx Gastrointestinal Disorders: No - GENITOURINARY/GYNECOLOGICAL Hx Genitourinary Disorders: Yes Hx Urinary Tract Infection: Yes - PSYCHIATRIC Hx Psychophysiologic Disorder: No - SURGICAL HISTORY Hx Surgeries: No - ANESTHESIA Hx Anesthesia: No Hx Anesthesia Reactions: No Hx Malignant Hyperthermia: No Meds Allergies/Adverse Reactions: Allergies Allergy/AdvReac Type Severity Reaction Status Date / Time No Known Allergies Allergy Verified 10/05/16 16:18 Physical Exam - Constitutional Appears: No Acute Distress, Chronically Ill - Head Exam Head Exam: NORMAL INSPECTION - Eye Exam Eye Exam: PERRL - ENT Exam ENT Exam: Normal Oropharynx - Neck Exam Neck exam: Positive for: Normal Inspection - Respiratory Exam Respiratory Exam: NORMAL BREATHING PATTERN - Cardiovascular Exam Cardiovascular Exam: Irregular Rhythm - GI/Abdominal Exam GI & Abdominal Exam: Normal Bowel Sounds, Soft. absent: Guarding, Rebound - Exam Additional comments: Triplett Catheter in place. - Extremities Exam Additional comments: Red circular area on R hip - Back Exam Additional comments: Rash buttocks and perineum. - Neurological Exam Neurological exam: Alert Additional comments: Awake, oriented x 2, forgetful, no follows commands. - Psychiatric Exam Additional comments: Calm - Skin Skin Exam: Erythema (L upper leg, L forearm), Warm Results - Vital Signs Recent Vital Signs: Last Vital Signs Temp 97.6 F 10/06/16 16:26 Pulse 92 H 10/06/16 16:26 Resp 20 10/06/16 16:26 BP 136/72 10/06/16 16:26 Pulse Ox 99 10/06/16 16:26 reviewed J.P. - Labs Result Diagrams: 10/10/16 06:30 10/10/16 06:30 Labs: Laboratory Results - last 24 hr 10/06/16 10/06/16 10/06/16 12:30 12:30 14:59 WBC 10.1 RBC 3.13 L Hgb 9.8 L D Hct 30.6 L MCV 97.6 H MCH 31.4 H MCHC 32.2 L RDW 15.0 H Plt Count 150 Sodium 148 Potassium 4.2 Chloride 119 H Carbon Dioxide 15 L Anion Gap 18 BUN 76 H Creatinine 2.7 H Est GFR ( Amer) 28 Est GFR (Non-Af Amer) 23 Random Glucose 214 H Calcium 8.6 Phosphorus 3.8 Magnesium 2.0 Iron 40 L TIBC 195 L % Saturation 21 Vitamin B12 10/06/16 14:59 WBC RBC Hgb Hct MCV MCH MCHC RDW Plt Count Sodium Potassium Chloride Carbon Dioxide Anion Gap BUN Creatinine Est GFR ( Amer) Est GFR (Non-Af Amer) Random Glucose Calcium Phosphorus Magnesium Iron TIBC % Saturation Vitamin B12 360 reviewed J.P. - EKG Data EKG comments: reviewed J.P. - Impressions Impression: Femur X-Ray, Hip/Pelv X-Ray, Lower Ext, CT, all reviewed J.P. - Imaging and Cardiology Chest x-ray Status: Report reviewed by me (Bk.) CT scan - head Status: Report reviewed by me (J.P.) Assessment & Plan (1) Falls Status: Acute Priority: High (2) Dehydration Status: Acute Priority: High (3) Bacteremia due to Gram-positive bacteria Status: Acute Priority: High (4) Weakness Status: Chronic Priority: High (5) Renal failure Status: Acute Priority: High (6) Hyperglycemia Status: Acute Priority: High (7) Diabetes mellitus type 2 in nonobese Status: Chronic Priority: High (8) New onset a-fib Status: Acute Priority: High (9) Hip pain Status: Chronic Priority: High (10) HTN (hypertension) Status: Chronic Priority: Medium (11) Gait difficulty Status: Chronic Priority: High - Assessment and Plan (Free Text) Plan: Continue Vanco, Sodium Chl Iv, Lovenox, Insulin, Cardizem and rest of Tx. F/U U C-S, Blood C-S, ID consult and Cardiology consult appreciated. - Date & Time Date: 10/06/16 Time: 12:00
--- NOTE | 2016-10-07 07:01 | CARD ---
APPROVED REPORT EKG Measurement Heart [id number] <Conclusion> Atrial fibrillation with rapid ventricular response with premature ventricular or aberrantly conducted complexes Marked ST abnormality, possible anterior subendocardial injury Abnormal ECG
--- NOTE | 2016-10-07 07:02 | CARD ---
APPROVED REPORT EKG Measurement Heart [id number] <Conclusion> Sinus tachycardia with premature supraventricular complexes Nonspecific ST abnormality Abnormal ECG
[2016-10-07] MEDS: Insulin Regular 100 units/ml SC SCH ×4 (08:25→22:48)
[2016-10-07] MEDS: Enoxaparin 30 mg Syringe SC SCH (08:29)
[2016-10-07 08:56] LABS: MEAN CELL VOLUME 96.3 fl (80.0-94.0); MEAN CORPUSCULAR HEMOGLOBIN 31.2 pg (27.0-31.0); MEAN CORPUSCULAR HGB CONC 32.4 g/dL (33.0-37.0); RED CELL DISTRIBUTION WIDTH 14.7 % (11.5-14.5); WHITE BLOOD COUNT 11.1 K/uL (4.8-10.8)
[2016-10-07 09:11] LABS: ALB/GLOB RATIO 0.9 (1.0-2.1); BILIRUBIN,TOTAL 0.4 mg/dl (0.2-1.3); CALCIUM 8.3 mg/dL (8.4-10.2); POTASSIUM 3.9 MMOL/L (3.6-5.0)
[2016-10-07 09:25] LABS: T4 6.32 ug/dl (5.5-11.0)
[2016-10-07 09:38] LABS: THYROID STIMULATING HORMONE 1.68 mIU/ML (0.46-4.68)
--- NOTE | 2016-10-07 11:18 | PQF GENQUE ---
Dr. Day, (1)Sepsis ruled in or Sepsis ruled out? (2) If ruled in etiology if known? OR: Unable to determine OR: Other explanation of clinical finding OR: Unable to determine Admission order: Admitting Diagnosis: ARF, Dehydration, Sepsis H and P: CXR shows: Small airway disease/ atypical or viral Pneumonitis. No lobar PNA IMP: (1) Falls Status: Acute Priority: High (2) Dehydration Status: Acute Priority: High (3) Bacteremia due to Gram-positive bacteria Status: Acute Priority: High (4) Weakness Status: Chronic Priority: High (5) Renal failure Status: Acute Priority: High (6) Hyperglycemia Status: Acute Priority: High (7) Diabetes mellitus type 2 in nonobese Status: Chronic Priority: High (8) New onset a-fib Status: Acute Priority: High (9) Hip pain Status: Chronic Priority: High (10) HTN (hypertension) Status: Chronic Priority: Medium (11) Gait difficulty Status: Chronic Priority: High ID; ID: HISTORY:Sepsis Patient; Impression: (1) Renal insufficiency Status: Acute (2) Weakness Status: Acute (3) Diabetes Status: Acute (4) Bacteremia due to Gram-positive bacteria Status: Acute Assesment : H/O: DM 2, HTN s/p fall and found to have GPC in prelim blood cx. asymptomatic and does not look septic afebrile and normal wbc count. + Loose stools. upon further review of the med records pt. has h/o right foot infection and toe surgery in 2016 and had Om of the right foot bone based on path report from 04/2015 and was on IV abx for few weeks ( as per med records). Plan- check 2 more blood cx. await ID and sensitivity of the prelim blood cx. check TTE r/o any vegetations; received 1 dose IV vanco check stool c.diff as well. may need to have right foot MRI done to r/o any residual OM ( if no CI to MRI) ;not sure if pt. was on any abx recently at the rehab; see full note in the EMR pulse: 126->125->125->87->97 WBC:11.2->10.1->11.1 Vancomycin IV. IVF's This form is a permanent part of the medical record Clarification of your documentation is requested to better reflect the severity of illness and intensity of treatment of your patient. Indicators present [] Specify: [] [] Specify: [] [] Specify: [] [] Specify: [] Location in the medical record that reflects the above clinical findings: [] Treatment Provided: [] PHYSICIAN'S RESPONSE Based on your medical judgment of the clinical indicators outlined above please clarify the following: [] Practitioner response [] If unable to determine, please check the box, sign and date. Present On Admission (POA) Indicator: [] Present at the time of admission [] Not present at the time of admission [] Clinically Undetermined In responding to this query, please exercise your independent professional judgment. The fact that a question is asked does not imply that any particular answer is desired or expected. Thank you for your clarification on this documentation. If you have any questions please call. * Thank you, Magali Poole RN BSN ext. [phone] (ext. [phone] temporarily out of service) MAKSIM
--- NOTE | 2016-10-07 11:25 | PQF GENQUE ---
Dr. Day, Is there an associated diagnosis to go along with the CXR report?: Impression: Findings could represent reactive small airway disease/ atypical or viral pneumonitis. No lobar pneumonia Current dxs. include: Bacteremia and Acute Renal Failure , New onset A-fib IV Vancomycin, IVF's pulse: 126->125->125->87->97 WBC:11.2->10.1->11.1 This form is a permanent part of the medical record Clarification of your documentation is requested to better reflect the severity of illness and intensity of treatment of your patient. Indicators present [] Specify: [] [] Specify: [] [] Specify: [] [] Specify: [] Location in the medical record that reflects the above clinical findings: [] Treatment Provided: [] PHYSICIAN'S RESPONSE Based on your medical judgment of the clinical indicators outlined above please clarify the following: [] Practitioner response [] If unable to determine, please check the box, sign and date. Present On Admission (POA) Indicator: [] Present at the time of admission [] Not present at the time of admission [] Clinically Undetermined In responding to this query, please exercise your independent professional judgment. The fact that a question is asked does not imply that any particular answer is desired or expected. Thank you for your clarification on this documentation. If you have any questions please call. * Thank you, Magali Poole RN BSN ext. #[phone] (ext. [phone] temporarily out of service) MAKSIM
--- NOTE | 2016-10-07 12:46 | US ---
PROCEDURE: Ultrasound of the Kidneys HISTORY: ARF COMPARISON: None available. TECHNIQUE: Sonogram of the kidneys. FINDINGS: RIGHT KIDNEY: Measures: 5.7 x 5.4 x 10.2 cm. Normal in size, contour and echogenicity. No stone, solid mass lesion or hydronephrosis visualized. LEFT KIDNEY: Measures: 4.3 x 5.3 x 10.6 cm. Normal in size, contour and echogenicity. Echogenic foci lower pole (2) 9 x 11 mm and 8 x 10 mm. OTHER FINDINGS: None. IMPRESSION: Nonobstructing lower pole calculi left kidney only.
--- NOTE | 2016-10-07 14:10 | CP.PCM.PN ---
Subjective - Date & Time of Evaluation Date of Evaluation: 10/07/16 Time of Evaluation: 14:10 - Subjective Subjective: ID Note- Pt. seen and examined today. Pt. resting comfortably in bed. no new events. denies any complaints. Objective - Vital Signs/Intake and Output Vital Signs (last 24 hours): Temp Pulse Resp BP Pulse Ox 97.5 F L 89 18 128/70 94 L 10/07/16 12:38 10/07/16 12:38 10/07/16 12:38 10/07/16 12:38 10/07/16 12:38 - Medications Medications: Current Medications Diltiazem HCl (Cardizem) 30 mg PO QID [facility] Last Admin: 10/07/16 12:06 Dose: 30 mg Enoxaparin Sodium (Lovenox) 30 mg SC DAILY [facility] PRN Reason: Protocol Last Admin: 10/07/16 08:29 Dose: 30 mg Vancomycin HCl 750 mg/ Sodium (Chloride) 250 mls @ 166.667 mls/hr IVPB DAILY [facility] Last Admin: 10/07/16 11:40 Dose: 166.667 mls/hr Insulin Human Regular (Humulin R) 0 units SC ACHS [facility] PRN Reason: Protocol Last Admin: 10/07/16 11:41 Dose: Not Given - Labs Labs: - Additional Findings Additional findings: - Constitutional Appears: No Acute Distress - Head Exam Head Exam: ATRAUMATIC - Eye Exam Eye Exam: PERRL - ENT Exam ENT Exam: Normal Oropharynx - Neck Exam Neck exam: Positive for: Full Rom - Respiratory Exam Respiratory Exam: NORMAL BREATHING PATTERN Additional comments: good breath sounds b/l no wheezing slightly decreased at left base - Cardiovascular Exam Cardiovascular Exam: RRR, +S1, +S2 - GI/Abdominal Exam GI & Abdominal Exam: Normal Bowel Sounds, Soft Additional comments: NT, ND No guarding, No rebound - Extremities Exam Additional comments: no edema B/l LE Right lateral foot small round dry ulcer , no active d/c this is in region where pt. has had prior amputation - Neurological Exam Neurological exam: Alert, Oriented x 3 Laboratory Results - last 72 hr 10/05/16 10/05/16 10/05/16 17:30 17:30 18:24 WBC 11.2 H D RBC 3.88 L Hgb 11.9 L Hct 37.6 MCV 97.0 H MCH 30.8 MCHC 31.8 L RDW 14.9 H Plt Count 152 MPV 11.2 Neut % (Auto) 75.8 H Lymph % (Auto) 9.5 L [place] % (Auto) 13.2 H Eos % (Auto) 0.4 Baso % (Auto) 1.1 Neut # 8.5 H Lymph # 1.1 [place] # 1.5 H Eos # 0.0 Baso # 0.1 Neutrophils % (Manual) 73 Lymphocytes % (Manual) 13 L Monocytes % (Manual) 13 H Basophils % (Manual) 1 Platelet Estimate Normal ESR PT INR APTT pO2 41 VBG pH 7.31 L VBG pCO2 27 L VBG HCO3 15.6 VBG Total CO2 14.4 L VBG O2 Sat (Calc) 80.2 H VBG Base Excess -11.0 L VBG Potassium 6.0 H Glucose 293 H Lactate 2.6 H FiO2 21.0 Sodium 151 H 142.0 Potassium 5.0 Chloride 120 H 123.0 H Carbon Dioxide 14 L Anion Gap 22 H BUN 86 H Creatinine 3.3 H Est GFR ( Amer) 23 Est GFR (Non-Af Amer) 19 POC Glucose (mg/dL) Random Glucose 288 H Calcium 9.6 Phosphorus 4.9 H Magnesium 2.2 Iron TIBC % Saturation Ferritin Total Bilirubin 0.5 AST 15 L ALT 22 Alkaline Phosphatase 105 Total Creatine Kinase 187 H Troponin I 0.0130 NT-Pro-B Natriuret Pep 1750 H Total Protein 8.2 Albumin 3.8 Globulin 4.4 H Albumin/Globulin Ratio 0.9 L Triglycerides Cholesterol LDL Cholesterol Direct HDL Cholesterol Vitamin B12 Folate Thyroxine (T4) TSH 3rd Generation Venous Blood Potassium 6.0 H Urine Color Urine Clarity Urine pH Ur Specific [place] Urine Protein Urine Glucose (UA) Urine Ketones Urine Blood Urine Nitrate Urine Bilirubin Urine Urobilinogen Ur Leukocyte Esterase Urine RBC (Auto) Urine Microscopic WBC Ur Squamous Epith Cells Urine Yeast (Budding) Alcohol, Quantitative < 10 10/05/16 10/05/16 10/05/16 19:09 20:14 20:35 WBC RBC Hgb Hct MCV MCH MCHC RDW Plt Count MPV Neut % (Auto) Lymph % (Auto) [place] % (Auto) Eos % (Auto) Baso % (Auto) Neut # Lymph # [place] # Eos # Baso # Neutrophils % (Manual) Lymphocytes % (Manual) Monocytes % (Manual) Basophils % (Manual) Platelet Estimate ESR PT 13.2 H INR 1.2 APTT 27.6 pO2 14 L VBG pH 7.27 L VBG pCO2 39 L VBG HCO3 16.1 VBG Total CO2 19.1 L VBG O2 Sat (Calc) 19.9 L VBG Base Excess -8.4 L VBG Potassium 4.7 Glucose 299 H Lactate 2.0 FiO2 21.0 Sodium 149.0 H Potassium Chloride 120.0 H Carbon Dioxide Anion Gap BUN Creatinine Est GFR ( Amer) Est GFR (Non-Af Amer) POC Glucose (mg/dL) Random Glucose Calcium Phosphorus Magnesium Iron TIBC % Saturation Ferritin Total Bilirubin AST ALT Alkaline Phosphatase Total Creatine Kinase Troponin I NT-Pro-B Natriuret Pep Total Protein Albumin Globulin Albumin/Globulin Ratio Triglycerides Cholesterol LDL Cholesterol Direct HDL Cholesterol Vitamin B12 Folate Thyroxine (T4) TSH 3rd Generation Venous Blood Potassium 4.7 Urine Color Yellow Urine Clarity Slighty-cloudy Urine pH 5.0 Ur Specific [place] 1.017 Urine Protein 100 Urine Glucose (UA) Neg Urine Ketones Negative Urine Blood Moderate Urine Nitrate Negative Urine Bilirubin Negative Urine Urobilinogen 0.2-1.0 Ur Leukocyte Esterase Neg Urine RBC (Auto) 9 H Urine Microscopic WBC 5 Ur Squamous Epith Cells < 1 Urine Yeast (Budding) Few H Alcohol, Quantitative 10/06/16 10/06/16 10/06/16 05:25 11:14 12:30 WBC 10.1 RBC 3.13 L Hgb 9.8 L D Hct 30.6 L MCV 97.6 H MCH 31.4 H MCHC 32.2 L RDW 15.0 H Plt Count 150 MPV Neut % (Auto) Lymph % (Auto) [place] % (Auto) Eos % (Auto) Baso % (Auto) Neut # Lymph # [place] # Eos # Baso # Neutrophils % (Manual) Lymphocytes % (Manual) Monocytes % (Manual) Basophils % (Manual) Platelet Estimate ESR PT INR APTT pO2 VBG pH VBG pCO2 VBG HCO3 VBG Total CO2 VBG O2 Sat (Calc) VBG Base Excess VBG Potassium Glucose Lactate FiO2 Sodium Potassium Chloride Carbon Dioxide Anion Gap BUN Creatinine Est GFR ( Amer) Est GFR (Non-Af Amer) POC Glucose (mg/dL) 279 H 248 H Random Glucose Calcium Phosphorus Magnesium Iron TIBC % Saturation Ferritin Total Bilirubin AST ALT Alkaline Phosphatase Total Creatine Kinase Troponin I NT-Pro-B Natriuret Pep Total Protein Albumin Globulin Albumin/Globulin Ratio Triglycerides Cholesterol LDL Cholesterol Direct HDL Cholesterol Vitamin B12 Folate Thyroxine (T4) TSH 3rd Generation Venous Blood Potassium Urine Color Urine Clarity Urine pH Ur Specific [place] Urine Protein Urine Glucose (UA) Urine Ketones Urine Blood Urine Nitrate Urine Bilirubin Urine Urobilinogen Ur Leukocyte Esterase Urine RBC (Auto) Urine Microscopic WBC Ur Squamous Epith Cells Urine Yeast (Budding) Alcohol, Quantitative 10/06/16 10/06/16 10/06/16 12:30 14:59 14:59 WBC RBC Hgb Hct MCV MCH MCHC RDW Plt Count MPV Neut % (Auto) Lymph % (Auto) [place] % (Auto) Eos % (Auto) Baso % (Auto) Neut # Lymph # [place] # Eos # Baso # Neutrophils % (Manual) Lymphocytes % (Manual) Monocytes % (Manual) Basophils % (Manual) Platelet Estimate ESR PT INR APTT pO2 VBG pH VBG pCO2 VBG HCO3 VBG Total CO2 VBG O2 Sat (Calc) VBG Base Excess VBG Potassium Glucose Lactate FiO2 Sodium 148 Potassium 4.2 Chloride 119 H Carbon Dioxide 15 L Anion Gap 18 BUN 76 H Creatinine 2.7 H Est GFR ( Amer) 28 Est GFR (Non-Af Amer) 23 POC Glucose (mg/dL) Random Glucose 214 H Calcium 8.6 Phosphorus 3.8 Magnesium 2.0 Iron 40 L TIBC 195 L % Saturation 21 Ferritin 1000.0 Total Bilirubin AST ALT Alkaline Phosphatase Total Creatine Kinase Troponin I NT-Pro-B Natriuret Pep Total Protein Albumin Globulin Albumin/Globulin Ratio Triglycerides Cholesterol LDL Cholesterol Direct HDL Cholesterol Vitamin B12 360 Folate > 20.0 Thyroxine (T4) TSH 3rd Generation Venous Blood Potassium Urine Color Urine Clarity Urine pH Ur Specific [place] Urine Protein Urine Glucose (UA) Urine Ketones Urine Blood Urine Nitrate Urine Bilirubin Urine Urobilinogen Ur Leukocyte Esterase Urine RBC (Auto) Urine Microscopic WBC Ur Squamous Epith Cells Urine Yeast (Budding) Alcohol, Quantitative 10/06/16 10/06/16 10/06/16 16:51 18:00 21:35 WBC RBC Hgb Hct MCV MCH MCHC RDW Plt Count MPV Neut % (Auto) Lymph % (Auto) [place] % (Auto) Eos % (Auto) Baso % (Auto) Neut # Lymph # [place] # Eos # Baso # Neutrophils % (Manual) Lymphocytes % (Manual) Monocytes % (Manual) Basophils % (Manual) Platelet Estimate ESR 107 H PT INR APTT pO2 VBG pH VBG pCO2 VBG HCO3 VBG Total CO2 VBG O2 Sat (Calc) VBG Base Excess VBG Potassium Glucose Lactate FiO2 Sodium Potassium Chloride Carbon Dioxide Anion Gap BUN Creatinine Est GFR ( Amer) Est GFR (Non-Af Amer) POC Glucose (mg/dL) 201 H 174 H Random Glucose Calcium Phosphorus Magnesium Iron TIBC % Saturation Ferritin Total Bilirubin AST ALT Alkaline Phosphatase Total Creatine Kinase Troponin I NT-Pro-B Natriuret Pep Total Protein Albumin Globulin Albumin/Globulin Ratio Triglycerides Cholesterol LDL Cholesterol Direct HDL Cholesterol Vitamin B12 Folate Thyroxine (T4) TSH 3rd Generation Venous Blood Potassium Urine Color Urine Clarity Urine pH Ur Specific [place] Urine Protein Urine Glucose (UA) Urine Ketones Urine Blood Urine Nitrate Urine Bilirubin Urine Urobilinogen Ur Leukocyte Esterase Urine RBC (Auto) Urine Microscopic WBC Ur Squamous Epith Cells Urine Yeast (Budding) Alcohol, Quantitative 10/07/16 10/07/16 10/07/16 05:39 08:30 08:30 WBC 11.1 H RBC 3.11 L Hgb 9.7 L Hct 30.0 L MCV 96.3 H MCH 31.2 H MCHC 32.4 L RDW 14.7 H Plt Count 127 L D MPV Neut % (Auto) Lymph % (Auto) [place] % (Auto) Eos % (Auto) Baso % (Auto) Neut # Lymph # [place] # Eos # Baso # Neutrophils % (Manual) Lymphocytes % (Manual) Monocytes % (Manual) Basophils % (Manual) Platelet Estimate ESR PT INR APTT pO2 VBG pH VBG pCO2 VBG HCO3 VBG Total CO2 VBG O2 Sat (Calc) VBG Base Excess VBG Potassium Glucose Lactate FiO2 Sodium 142 Potassium 3.9 Chloride 118 H Carbon Dioxide 14 L Anion Gap 14 BUN 57 H Creatinine 2.2 H Est GFR ( Amer) 36 Est GFR (Non-Af Amer) 30 POC Glucose (mg/dL) 185 H Random Glucose 164 H Calcium 8.3 L Phosphorus Magnesium Iron TIBC % Saturation Ferritin Total Bilirubin 0.4 AST 21 ALT 29 Alkaline Phosphatase 90 Total Creatine Kinase Troponin I NT-Pro-B Natriuret Pep Total Protein 6.0 L Albumin 2.8 L D Globulin 3.2 Albumin/Globulin Ratio 0.9 L Triglycerides 358 H Cholesterol 112 LDL Cholesterol Direct 44 HDL Cholesterol 8 L Vitamin B12 Folate Thyroxine (T4) 6.32 TSH 3rd Generation 1.68 Venous Blood Potassium Urine Color Urine Clarity Urine pH Ur Specific [place] Urine Protein Urine Glucose (UA) Urine Ketones Urine Blood Urine Nitrate Urine Bilirubin Urine Urobilinogen Ur Leukocyte Esterase Urine RBC (Auto) Urine Microscopic WBC Ur Squamous Epith Cells Urine Yeast (Budding) Alcohol, Quantitative 10/07/16 11:04 WBC RBC Hgb Hct MCV MCH MCHC RDW Plt Count MPV Neut % (Auto) Lymph % (Auto) [place] % (Auto) Eos % (Auto) Baso % (Auto) Neut # Lymph # [place] # Eos # Baso # Neutrophils % (Manual) Lymphocytes % (Manual) Monocytes % (Manual) Basophils % (Manual) Platelet Estimate ESR PT INR APTT pO2 VBG pH VBG pCO2 VBG HCO3 VBG Total CO2 VBG O2 Sat (Calc) VBG Base Excess VBG Potassium Glucose Lactate FiO2 Sodium Potassium Chloride Carbon Dioxide Anion Gap BUN Creatinine Est GFR ( Amer) Est GFR (Non-Af Amer) POC Glucose (mg/dL) 207 H Random Glucose Calcium Phosphorus Magnesium Iron TIBC % Saturation Ferritin Total Bilirubin AST ALT Alkaline Phosphatase Total Creatine Kinase Troponin I NT-Pro-B Natriuret Pep Total Protein Albumin Globulin Albumin/Globulin Ratio Triglycerides Cholesterol LDL Cholesterol Direct HDL Cholesterol Vitamin B12 Folate Thyroxine (T4) TSH 3rd Generation Venous Blood Potassium Urine Color Urine Clarity Urine pH Ur Specific [place] Urine Protein Urine Glucose (UA) Urine Ketones Urine Blood Urine Nitrate Urine Bilirubin Urine Urobilinogen Ur Leukocyte Esterase Urine RBC (Auto) Urine Microscopic WBC Ur Squamous Epith Cells Urine Yeast (Budding) Alcohol, Quantitative Microbiology 10/06/16 13:10 Blood Blood Culture - Preliminary NO GROWTH AFTER 24 HOURS 10/05/16 18:49 Blood S.aureus & Coag-Neg Staph PNA FISH - Preliminary 10/05/16 18:49 Blood Blood Culture - Preliminary Gram Positive Cocci 10/05/16 18:49 Blood Gram Stain - Final Assessment and Plan (1) Renal insufficiency Status: Deleted (2) Weakness Status: Chronic (3) Diabetes Status: Acute (4) Bacteremia due to Gram-positive bacteria Status: Acute - Assessment and Plan (Free Text) Assessment: A/P- 71 year old amle with h/o DM ii, HTN s/p fall and found to have GPC in prelim blood cx. afebrile and normal wbc count. + Loose stools. Not sure if pt. was on any abx recently at the rehab. upon further review of the med records pt. has h/o right foot infection and toe surgery in 2016 and had Om of the right foot bone based on path report from 2015 and was on IV abx for few weeks ( as per med records). High ESR plan- check 2 more blood cx. await ID and sensitivity of the prelim blood cx. check TTE r/o any vegetations. continue with IV vanco, renal dose. in light of the acute renal insufficiency dose renally. Keep trough <20. check stool c.diff as well. if no contraindications check right foot MRI to r/o any residual OM ( if no CI to MRI). advise podiatry consult as well. all above d/w [employer].
[2016-10-07 14:31] LABS: FOLATE > 20.0 ng/mL
--- NOTE | 2016-10-07 15:45 | CP.PCM.CON ---
History of Present Illness - History of Present Illness History of Present Illness: 71 y/o male with PMHx of Falls, Osteomyelitis, Renal insufficiency, DM II, DM Neuropathy, HTN, Hyperlipidemia, Anemia, alcohol abuse seen at bedside for history of OM. Pt states that he has generalized pain in his lower extremity. Pt is AAOx3 and is in NAD. Pt denies of any recent F/N/V/C/SOB today. Pt denies of any pedal complaints at this moment. 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 Allergies: none Review of Systems - Constitutional Constitutional: As Per HPI Past Patient History - Past Medical History & Family History Past Medical History?: Yes - Past Social History Smoking Status: Light Smoker < 10 Cigarettes Daily Home Situation {Lives}: With Family - CARDIAC Hx Hypertension: Yes - PULMONARY Hx Respiratory Disorders: No - NEUROLOGICAL Hx Neurological Disorder: Yes - HEENT Hx HEENT Problems: No - RENAL Hx Chronic Kidney Disease: No - ENDOCRINE/METABOLIC Hx Endocrine Disorders: Yes Hx Diabetes Mellitus Type 2: Yes - HEMATOLOGICAL/ONCOLOGICAL Hx Blood Disorders: No - INTEGUMENTARY Hx Dermatological Problems: No - MUSCULOSKELETAL/RHEUMATOLOGICAL Hx Musculoskeletal Disorders: Yes - GASTROINTESTINAL Hx Gastrointestinal Disorders: No - GENITOURINARY/GYNECOLOGICAL Hx Genitourinary Disorders: No - PSYCHIATRIC Hx Psychophysiologic Disorder: No - SURGICAL HISTORY Hx Surgeries: No - ANESTHESIA Hx Anesthesia: No Hx Anesthesia Reactions: No Hx Malignant Hyperthermia: No Meds Allergies/Adverse Reactions: Allergies Allergy/AdvReac Type Severity Reaction Status Date / Time No Known Allergies Allergy Verified 10/05/16 16:18 - Medications Medications: Current Medications Diltiazem HCl (Cardizem) 30 mg PO QID [facility] Last Admin: 10/07/16 12:06 Dose: 30 mg Enoxaparin Sodium (Lovenox) 30 mg SC DAILY [facility] PRN Reason: Protocol Last Admin: 10/07/16 08:29 Dose: 30 mg Vancomycin HCl 750 mg/ Sodium (Chloride) 250 mls @ 166.667 mls/hr IVPB DAILY [facility] Last Admin: 10/07/16 11:40 Dose: 166.667 mls/hr Insulin Human Regular (Humulin R) 0 units SC ACHS [facility] PRN Reason: Protocol Last Admin: 10/07/16 11:41 Dose: Not Given Physical Exam - Constitutional Appears: Well, Non-toxic, No Acute Distress - Extremities Exam Additional comments: VASC: DP/PT pulses are palpable 2/4 b/l, PHOTOGRAPHY AND PRINTS CURATOR: < 3 sec to all digits, TG: warm to cool, no pitting or non-pitting edema noted on feet b/l DERM: no interdigital maceration, no erythema, no open lesions, no clinical suspicion of infection NEURO: Protective sensation grossly diminished ORTHO: Partial 3rd ray amputation - Neurological Exam Neurological exam: Alert, Oriented x3 - Psychiatric Exam Psychiatric exam: Normal Affect, Normal Mood Results - Vital Signs Recent Vital Signs: Last Vital Signs Temp 97.5 F L 10/07/16 12:38 Pulse 89 10/07/16 12:38 Resp 18 10/07/16 12:38 BP 128/70 10/07/16 12:38 Pulse Ox 94 L 10/07/16 12:38 - Labs Result Diagrams: 10/07/16 08:30 10/07/16 08:30 Labs: Laboratory Results - last 24 hr 10/06/16 10/06/16 10/06/16 14:59 16:51 18:00 WBC RBC Hgb Hct MCV MCH MCHC RDW Plt Count ESR 107 H Sodium Potassium Chloride Carbon Dioxide Anion Gap BUN Creatinine Est GFR ( Amer) Est GFR (Non-Af Amer) POC Glucose (mg/dL) 201 H Random Glucose Calcium Ferritin 1000.0 Total Bilirubin AST ALT Alkaline Phosphatase Total Protein Albumin Globulin Albumin/Globulin Ratio Triglycerides Cholesterol LDL Cholesterol Direct HDL Cholesterol Vitamin B12 360 Folate > 20.0 Thyroxine (T4) TSH 3rd Generation 10/06/16 10/07/16 10/07/16 21:35 05:39 08:30 WBC 11.1 H RBC 3.11 L Hgb 9.7 L Hct 30.0 L MCV 96.3 H MCH 31.2 H MCHC 32.4 L RDW 14.7 H Plt Count 127 L D ESR Sodium Potassium Chloride Carbon Dioxide Anion Gap BUN Creatinine Est GFR ( Amer) Est GFR (Non-Af Amer) POC Glucose (mg/dL) 174 H 185 H Random Glucose Calcium Ferritin Total Bilirubin AST ALT Alkaline Phosphatase Total Protein Albumin Globulin Albumin/Globulin Ratio Triglycerides Cholesterol LDL Cholesterol Direct HDL Cholesterol Vitamin B12 Folate Thyroxine (T4) TSH 3rd Generation 10/07/16 10/07/16 08:30 11:04 WBC RBC Hgb Hct MCV MCH MCHC RDW Plt Count ESR Sodium 142 Potassium 3.9 Chloride 118 H Carbon Dioxide 14 L Anion Gap 14 BUN 57 H Creatinine 2.2 H Est GFR ( Amer) 36 Est GFR (Non-Af Amer) 30 POC Glucose (mg/dL) 207 H Random Glucose 164 H Calcium 8.3 L Ferritin Total Bilirubin 0.4 AST 21 ALT 29 Alkaline Phosphatase 90 Total Protein 6.0 L Albumin 2.8 L D Globulin 3.2 Albumin/Globulin Ratio 0.9 L Triglycerides 358 H Cholesterol 112 LDL Cholesterol Direct 44 HDL Cholesterol 8 L Vitamin B12 Folate Thyroxine (T4) 6.32 TSH 3rd Generation 1.68 Assessment & Plan - Assessment and Plan (Free Text) Assessment: 71 y/o male seen at bedside for history of chronic osteomyelitis Plan: Pt evaluated and chart reviewed Pt discussed in details with attending Dr. Rabago Labs and vitals reviewed (afebrile, WBC @ 11.1) Pt educated to check his feet daily and never to walk without a shoe Pt demonstrated verbal understanding Pt is stable from podiatry standpoint Please re-consult podiatry for any new complains Thank you for the podiatry consult - Date & Time Date: 10/07/16 Time: 15:56
--- NOTE | 2016-10-07 15:52 | CP.PCM.PN ---
Subjective - Date & Time of Evaluation Date of Evaluation: 10/07/16 Time of Evaluation: 15:49 - Subjective Subjective: Confused, no distress, Rhythm is Sinus Tachycardia Objective - Vital Signs/Intake and Output Vital Signs (last 24 hours): Temp Pulse Resp BP Pulse Ox 98.0 F 74 20 145/69 98 10/07/16 15:48 10/07/16 15:48 10/07/16 15:48 10/07/16 15:48 10/07/16 15:48 - Medications Medications: Current Medications Diltiazem HCl (Cardizem) 30 mg PO QID [facility] Last Admin: 10/07/16 12:06 Dose: 30 mg Enoxaparin Sodium (Lovenox) 30 mg SC DAILY [facility] PRN Reason: Protocol Last Admin: 10/07/16 08:29 Dose: 30 mg Vancomycin HCl 750 mg/ Sodium (Chloride) 250 mls @ 166.667 mls/hr IVPB DAILY [facility] Last Admin: 10/07/16 11:40 Dose: 166.667 mls/hr Insulin Human Regular (Humulin R) 0 units SC ACHS [facility] PRN Reason: Protocol Last Admin: 10/07/16 11:41 Dose: Not Given - Labs Labs: 10/07/16 08:30 10/07/16 08:30 PT 13.2 Seconds (9.8-13.1) H 10/05/16 20:14 INR 1.2 (0.9-1.2) 10/05/16 20:14 APTT 27.6 Seconds (25.6-37.1) 10/05/16 20:14 - Constitutional Appears: Toxic - Head Exam Head Exam: NORMAL INSPECTION - Neck Exam Neck Exam: Normal Inspection - Respiratory Exam Respiratory Exam: Rhonchi - Cardiovascular Exam Cardiovascular Exam: REGULAR RHYTHM - Extremities Exam Extremities Exam: Normal Inspection Assessment and Plan - Assessment and Plan (Free Text) Assessment: Paroxysmal A Fib Grame +ve coccemia PVD, S/p Big Toe amputation CKD Plan: Cont. Diltiazem HCl (Cardizem) 30 mg PO QID [facility] Last Admin: 10/07/16 12:06 Dose: 30 mg Enoxaparin Sodium (Lovenox) 30 mg SC DAILY [facility] PRN Reason: Protocol Last Admin: 10/07/16 08:29 Dose: 30 mg Vancomycin HCl 750 mg/ Sodium (Chloride) 250 mls @ 166.667 mls/hr IVPB DAILY [facility] Last Admin: 10/07/16 11:40 Dose: 166.667 mls/hr Insulin Human Regular (Humulin R) 0 units SC ACHS [facility] PRN Reason: Protocol Last Admin: 10/07/16 11:41 Dose: Not Given Discussed with EYEGLASS LENS GENERATOR Awaiting Echo report and final BC report
[2016-10-07] MEDS ORDERED: Digoxin 500 mcg/2ml (0.5 mg/2ml) Inj IVP STA (16:31)
--- NOTE | 2016-10-07 17:06 | PCM.RRTMUL ---
<Shannan Barbosa - Last Filed: 10/07/16 17:58> HOSPITAL PHARMACIST Nurse Assessment - Situation HOSPITAL PHARMACIST Responder Arrival Time:: 16:10 Location:: [address] [place] [address] Room Number:: [id number] HOSPITAL PHARMACIST Reason for Call: Tachycardia HOSPITAL PHARMACIST Called By: RN - IV IV Inserted during HOSPITAL PHARMACIST?: No - Respiratory Oxygen Delivery Method:: Nasal Cannula Received Nebulizer Treatments:: No Was the Patient Ventilated with Bag/Mask 100% O2?: No Secretions Suctioned?: No Was the Patient Intubated?: No Was the Patient Placed on a Ventilator?: No - Medication Medications Administered During HOSPITAL PHARMACIST :: cardiazem 25mg followed by cardiazem drip at 10mg/hr IV. digoxin 0.25mg IV - Diagnostic Test Ordered EKG:: Yes Chest X-Ray:: No CT Scan:: No CPR started during HOSPITAL PHARMACIST?: No - Vital Signs Pulse Rate:: 167 - [place] Coma Scale Coma Scale Eye Opening:: Spontaneous Coma Scale Motor:: Obeys Commands Movement Coma Scale Verbal:: Confused/able to answer Coma Scale Total:: 14 - Time HOSPITAL PHARMACIST Ended Time HOSPITAL PHARMACIST Ended:: 16:50 - Vital Signs at end of HOSPITAL PHARMACIST Blood Pressure:: 145/73 Pulse Rate:: 124 Respiratory Rate:: 20 Temperature:: 97.4 F O2 Sat by Pulse Oximetry:: 98 - Recommendations 5) HOSPITAL PHARMACIST Level of Care Recommendations: Remain in current setting 6) Notifications: Attending Physician, Consultations I.Reason for HOSPITAL PHARMACIST - A) Acute Change in Patient: (Select all that apply): Acute change in heart rate less than 50 or greater than 120 - A) Initial Vital Signs: Blood Pressure: 129/79 Pulse Rate: 175 Respiratory Rate: 20 O2 Sat by Pulse Oximetry: 93 - Constitutional Additional Comments: uncomfortable - Head Head Exam: ATRAUMATIC, NORMAL INSPECTION - Eyes Eye Exam: EOMI - Respiratory Exam Respiratory Exam: Clear to Ausculation Bilateral. absent: Rhonchi, Wheezes, Respiratory Distress - Cardiovascular Exam Cardiovascular Exam: Tachycardia, Irregular Rhythm, +S1, +S2 - GI/Abdominal Exam GI & Abdominal Exam: Soft, Normal Bowel Sounds. absent: Distended, Tenderness - Neurological Exam Neurological Exam: Alert, Awake, Oriented x3 Additional exam: Patient awake, verbal, following commands. - Extremities Exam Extremities Exam: Normal Capillary Refill. absent: Pedal Edema Plan - A. End of HOSPITAL PHARMACIST Vital Signs: Blood Pressure: 109/73 Pulse Rate: 94 Respiratory Rate: 16 O2 Sat by Pulse Oximetry: 100 - B. Assessment of Findings&Treatment Plan HOSPITAL PHARMACIST called for 71 y/o M due to elevated heart rate of >175. On responder arrival , patient was having irregular, rapid heart rate but was awake and verbal, following commands. He denied any SOB or chest pain. STAT ekg performed revealed Afib with RVR. STAT cardizem 10mg IV was administered with improvement in rate to 130s. An additional dose of cardizem 15mg IV was given (for a total of 25mg) and patient's rate stabilized to 90s. He was started on a cardizem drip and HR remained stable. As per cardiology, digoxin 0.25mg was also started. PMD, Dr Day, was contacted regarding patient. A/P: 71 y/o M with PMH of A-fib, DM2, HTN and CKD with HOSPITAL PHARMACIST called due to A-fib with RVR, rate currently improved to normal limits -continue Cardizem drip -titrate Cardizem drip as per protocol if needed -continue Telemetry monitoring Shannan Barbosa, PGY1, Family Medicine. <Mariana León - Last Filed: 10/07/16 18:42> Attending/Attestation - Attestation I have personally seen and examined this patient.: Yes I have fully participated in the care of the patient.: Yes I have reviewed all pertinent clinical information, including history, physical exam and plan: Yes Notes (Text): 10/07/16 18:37 HOSPITAL PHARMACIST called bec of tachycardia Responded to the HOSPITAL PHARMACIST with the residents. Pt seen and exmined with the residents, Case discussed , agree with above Event Note Pt denies CP, no SOB A Fib with RVR - Cardizem IV bolus and Drip started - EKG : A fib RVR - discussed case with Dr Chong - rec adding IV Digoxin 0.25 mg x1 dose, also rec ICU transfer - Discussed case with Dr Paez who came to evalute pt - Dr Day pt's PMD notified of event Pt is Full Code - surrogate decision maker - son Emery
--- NOTE | 2016-10-07 17:42 | CP.PCM.PN ---
Subjective - Date & Time of Evaluation Date of Evaluation: 10/07/16 Time of Evaluation: 10:30 - Subjective Subjective: F/U Weakness, Fall. Pt confused, no A/D. Objective - Vital Signs/Intake and Output Vital Signs (last 24 hours): Temp Pulse Resp BP Pulse Ox 97.8 F 125 H 24 121/73 98 10/07/16 16:09 10/07/16 17:10 10/07/16 16:09 10/07/16 17:10 10/07/16 15:48 - Medications Medications: Current Medications Diltiazem HCl (Cardizem) 30 mg PO QID [facility] Last Admin: 10/07/16 17:10 Dose: 30 mg Enoxaparin Sodium (Lovenox) 30 mg SC DAILY [facility] PRN Reason: Protocol Last Admin: 10/07/16 08:29 Dose: 30 mg Vancomycin HCl 750 mg/ Sodium (Chloride) 250 mls @ 166.667 mls/hr IVPB DAILY [facility] Last Admin: 10/07/16 11:40 Dose: 166.667 mls/hr Diltiazem HCl 125 mg/ Sodium (Chloride) 125 mls @ 10 mls/hr IV .[id number] ONE; 10 MG/HR PRN Reason: Protocol Stop: 10/08/16 04:50 Last Admin: 10/07/16 17:00 Dose: 10 mg/hr, 10 mls/hr Insulin Human Regular (Humulin R) 0 units SC ACHS [facility] PRN Reason: Protocol Last Admin: 10/07/16 17:11 Dose: 2 unit - Labs Labs: 10/07/16 08:30 10/07/16 08:30 PT 13.2 Seconds (9.8-13.1) H 10/05/16 20:14 INR 1.2 (0.9-1.2) 10/05/16 20:14 APTT 27.6 Seconds (25.6-37.1) 10/05/16 20:14 - Constitutional Appears: No Acute Distress, Chronically Ill - Head Exam Head Exam: NORMAL INSPECTION - Eye Exam Eye Exam: PERRL - ENT Exam ENT Exam: Normal Oropharynx - Neck Exam Neck Exam: Normal Inspection - Respiratory Exam Respiratory Exam: Decreased Breath Sounds - Cardiovascular Exam Cardiovascular Exam: Irregular Rhythm - GI/Abdominal Exam GI & Abdominal Exam: Soft, Normal Bowel Sounds. absent: Guarding, Rebound - Extremities Exam Additional comments: Red circular area in R hip. - Back Exam Additional comments: Rash buttocks and perineum. - Neurological Exam Neurological Exam: Alert Additional comments: Awake, oriented x2, forgetful, no follows commands. - Psychiatric Exam Additional comments: Calm - Skin Skin Exam: Warm Assessment and Plan (1) Falls Status: Acute (2) Dehydration Status: Acute (3) Bacteremia due to Gram-positive bacteria Status: Acute (4) Weakness Status: Chronic (5) Renal failure Status: Acute (6) Hyperglycemia Status: Acute (7) Diabetes mellitus type 2 in nonobese Status: Chronic (8) New onset a-fib Status: Acute (9) Hip pain Status: Chronic (10) HTN (hypertension) Status: Chronic (11) Gait difficulty Status: Chronic - Assessment and Plan (Free Text) Plan: F/U MRI Lower Extremity, continue current Vanco and rest ot treatment
[2016-10-08] MEDS ORDERED: Sodium Chloride 0.9% 500 ML IV ONE (02:57)
--- NOTE | 2016-10-08 03:11 | PCM.RRTMUL ---
<[place] - Last Filed: 10/08/16 03:09> WEAPONS SPECIALIST Nurse Assessment - Situation WEAPONS SPECIALIST Responder Arrival Time:: 16:10 Location:: [address] [place] [address] Room Number:: [id number] WEAPONS SPECIALIST Reason for Call: Tachycardia WEAPONS SPECIALIST Called By: RN - IV IV Inserted during WEAPONS SPECIALIST?: No - Respiratory Oxygen Delivery Method:: Nasal Cannula Received Nebulizer Treatments:: No Was the Patient Ventilated with Bag/Mask 100% O2?: No Secretions Suctioned?: No Was the Patient Intubated?: No Was the Patient Placed on a Ventilator?: No - Medication Medications Administered During WEAPONS SPECIALIST :: cardiazem 25mg followed by cardiazem drip at 10mg/hr IV. digoxin 0.25mg IV - Diagnostic Test Ordered EKG:: Yes Chest X-Ray:: No CT Scan:: No CPR started during WEAPONS SPECIALIST?: No - Vital Signs Blood Pressure:: 155/69 Pulse Rate:: 99 Respiratory Rate:: 16 Temperature:: 98.9 F - [place] Coma Scale Coma Scale Eye Opening:: Spontaneous Coma Scale Motor:: Obeys Commands Movement Coma Scale Verbal:: Confused/able to answer Coma Scale Total:: 14 - Time WEAPONS SPECIALIST Ended Time WEAPONS SPECIALIST Ended:: 16:50 - Vital Signs at end of WEAPONS SPECIALIST Blood Pressure:: 145/73 Pulse Rate:: 124 Respiratory Rate:: 20 Temperature:: 97.4 F O2 Sat by Pulse Oximetry:: 98 - Recommendations 5) WEAPONS SPECIALIST Level of Care Recommendations: Remain in current setting 6) Notifications: Attending Physician, Consultations I.Reason for WEAPONS SPECIALIST - A) Acute Change in Patient: (Select all that apply): Acute change in heart rate less than 50 or greater than 120 (heart rate of 170) - A) Initial Vital Signs: Blood Pressure: 115/78 Pulse Rate: 174 Respiratory Rate: 24 - B) Neurological Status (Select all that apply): Responsive (arousable with pain, did not respond of questions) - Constitutional Appears: Older Than Stated Age, Confused, Other (arousable with pain, non responsive to questions) - Head Head Exam: ATRAUMATIC, NORMOCEPHALIC - Respiratory Exam Respiratory Exam: Clear to Ausculation Bilateral - Cardiovascular Exam Cardiovascular Exam: Tachycardia. absent: Murmur - GI/Abdominal Exam GI & Abdominal Exam: Soft. absent: Distended, Tenderness - Neurological Exam Neurological Exam: Altered - Extremities Exam Extremities Exam: absent: Calf Tenderness, Pedal Edema Plan - A. End of WEAPONS SPECIALIST Vital Signs: Blood Pressure: 110/62 Pulse Rate: 87 Respiratory Rate: 16 O2 Sat by Pulse Oximetry: 98 - B. Assessment of Findings&Treatment Plan 71 yo male w/ pmh DMII, renal insufficiency, HTN, DM Neuropathy was called WEAPONS SPECIALIST for tachycardia of 174. Cardizem 10 mg IVP was given at 2:54 Initial response was minimal. Cardizem drip was increased from 10 mg/hr to 12 mg/hr 500 ml of NS bolus was given at 2:57 am Cardizem 15 mg IVP was given and bp returns to 110/62, HR 87, pulse ox 98%. ECG shows atrial fibrillation with different rates ranging from 80's to 130s. will monitor patient's vitals and his mental status for further management. <Arvind Lan - Last Filed: 10/08/16 09:38> Attending/Attestation - Attestation I have personally seen and examined this patient.: No I have fully participated in the care of the patient.: No I have reviewed all pertinent clinical information, including history, physical exam and plan: No Notes (Text): 10/08/16 09:28 I saw and examined this patient shoulder to shoulder with Dr Jeffery. i agree with the assessment and plan which represent my direct input. The patient with Heart Rate of 160-175/min on Cardizem drip at 10mg/hr. A&P #. A fib with rapid response - bolus of Cardizem 10mg iv. because of no change a 15mg of Cardizem was given IVP - IV fluid NS at 500mls started Heart rate decreased [id number]/min - Cardizem increased to 12mg/hr [id number]/min Critical care time including all time spent with patient 35minutes Arvind Lan MD
[2016-10-08 06:53] LABS: CALCIUM 8.2 mg/dL (8.4-10.2); POTASSIUM 3.9 MMOL/L (3.6-5.0)
[2016-10-08] MEDS: Insulin Regular 100 units/ml SC SCH ×4 (09:47→22:50)
[2016-10-08] MEDS: Enoxaparin 30 mg Syringe SC SCH (09:50)
--- NOTE | 2016-10-08 12:57 | CP.PCM.PN ---
Subjective - Date & Time of Evaluation Date of Evaluation: 10/08/16 Time of Evaluation: 12:54 - Subjective Subjective: had VARNISH THINNER yesterday for Rapid A Fib Discussed with Facing Cutting Machine Operator by Dr. Mau Marin, BC +ve for E. Fecalis Objective - Vital Signs/Intake and Output Vital Signs (last 24 hours): Temp Pulse Resp BP Pulse Ox 98.9 F 90 18 158/71 H 99 10/08/16 12:00 10/08/16 12:39 10/08/16 12:00 10/08/16 12:39 10/08/16 12:00 - Medications Medications: Current Medications Diltiazem HCl (Cardizem) 30 mg PO QID [facility] Last Admin: 10/08/16 12:39 Dose: 30 mg Enoxaparin Sodium (Lovenox) 30 mg SC DAILY [facility] PRN Reason: Protocol Last Admin: 10/08/16 09:50 Dose: 30 mg Vancomycin HCl 750 mg/ Sodium (Chloride) 250 mls @ 166.667 mls/hr IVPB DAILY [facility] Last Admin: 10/08/16 09:51 Dose: 166.667 mls/hr Insulin Human Regular (Humulin R) 0 units SC ACHS [facility] PRN Reason: Protocol Last Admin: 10/08/16 12:37 Dose: 4 unit - Labs Labs: 10/07/16 08:30 10/08/16 05:00 PT 13.2 Seconds (9.8-13.1) H 10/05/16 20:14 INR 1.2 (0.9-1.2) 10/05/16 20:14 APTT 27.6 Seconds (25.6-37.1) 10/05/16 20:14 - Constitutional Appears: Toxic - Head Exam Head Exam: NORMAL INSPECTION - Neck Exam Neck Exam: Normal Inspection - Respiratory Exam Respiratory Exam: Rhonchi - Cardiovascular Exam Cardiovascular Exam: Irregular Rhythm - GI/Abdominal Exam GI & Abdominal Exam: Normal Bowel Sounds - Extremities Exam Extremities Exam: Pedal Edema Assessment and Plan - Assessment and Plan (Free Text) Assessment: Paroxysmal A Fib E. Fecalis Sepsis CKD Anemia Thrombocytopenia Plan: Cont. Diltiazem HCl (Cardizem) 30 mg PO QID [facility] Last Admin: 10/08/16 12:39 Dose: 30 mg Enoxaparin Sodium (Lovenox) 30 mg SC DAILY [facility] PRN Reason: Protocol Last Admin: 10/08/16 09:50 Dose: 30 mg Vancomycin HCl 750 mg/ Sodium (Chloride) 250 mls @ 166.667 mls/hr IVPB DAILY [facility] Last Admin: 10/08/16 09:51 Dose: 166.667 mls/hr Insulin Human Regular (Humulin R) 0 units SC ACHS [facility] PRN Reason: Protocol Last Admin: 10/08/16 12:37 Dose: 4 unit Echo poor window, awaiting official report
--- NOTE | 2016-10-08 13:21 | CARD ---
APPROVED REPORT EXAM: Two-dimensional and M-mode echocardiogram with Doppler and color Doppler. Other Information Quality : FairRhythm : Atrial Fibrillation Technically limited study due to body habitus. INDICATION Infection: Mitral Valve E/A ratio0.0 TDI E/Lateral E'0.0E/Medial E'0.0 LEFT VENTRICLE The left ventricle is normal size. There is normal left ventricular wall thickness. The left ventricular function is normal. The left ventricular ejection fraction is within the normal range. The Ejection Fraction is 60-65%. There is normal LV segmental wall motion. Transmitral Doppler flow pattern is Grade I-abnormal relaxation pattern. No left ventricle thrombus noted on this study. There is no ventricular septal defect visualized. There is no mass noted in the left ventricle. RIGHT VENTRICLE The right ventricle is normal size. There is normal right ventricular wall thickness. The right ventricular systolic function is normal. ATRIA The left atrium size is normal. The right atrium size is normal. The interatrial septum is intact with no evidence for an atrial septal defect. AORTIC VALVE The aortic valve is normal in structure and function. No aortic regurgitation is present. There is no aortic valvular stenosis. There is no aortic valvular vegetation. MITRAL VALVE The mitral valve is normal in structure and function. There is no evidence of mitral valve prolapse. There is no mitral valve stenosis. There is no mitral valve regurgitation noted. TRICUSPID VALVE The tricuspid valve is normal in structure and function. There is no tricuspid valve regurgitation noted. There is no tricuspid valve prolapse or vegetation. There is no tricuspid valve stenosis. PULMONIC VALVE The pulmonary valve is normal in structure and function. There is no pulmonic valvular regurgitation. There is no pulmonic valvular stenosis. GREAT VESSELS The aortic root is normal in size. The IVC is normal in size and collapses >50% with inspiration. PERICARDIAL EFFUSION The pericardium appears normal. There is no pleural effusion. <Conclusion> Technically Poor Echo The left ventricle is normal size. The left ventricular function is normal. The left ventricular ejection fraction is within the normal range. The Ejection Fraction is 60-65%.
--- NOTE | 2016-10-08 14:50 | CP.PCM.PN ---
Subjective - Date & Time of Evaluation Date of Evaluation: 10/08/16 Time of Evaluation: 14:50 - Subjective Subjective: ID Note- pt. seen and examined today. remains afebrile. 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 Objective - Vital Signs/Intake and Output Vital Signs (last 24 hours): Temp Pulse Resp BP Pulse Ox 98.9 F 90 18 158/71 H 99 10/08/16 12:00 10/08/16 12:39 10/08/16 12:00 10/08/16 12:39 10/08/16 12:00 - Medications Medications: Current Medications Diltiazem HCl (Cardizem) 30 mg PO QID [facility] Last Admin: 10/08/16 12:39 Dose: 30 mg Enoxaparin Sodium (Lovenox) 30 mg SC DAILY [facility] PRN Reason: Protocol Last Admin: 10/08/16 09:50 Dose: 30 mg Vancomycin HCl 750 mg/ Sodium (Chloride) 250 mls @ 166.667 mls/hr IVPB DAILY [facility] Last Admin: 10/08/16 09:51 Dose: 166.667 mls/hr Insulin Human Regular (Humulin R) 0 units SC ACHS [facility] PRN Reason: Protocol Last Admin: 10/08/16 12:37 Dose: 4 unit - Labs Labs: - Additional Findings Additional findings: - Constitutional Appears: No Acute Distress - Head Exam Head Exam: ATRAUMATIC - Eye Exam Eye Exam: PERRL - ENT Exam ENT Exam: Normal Oropharynx - Neck Exam Neck exam: Positive for: Full Rom - Respiratory Exam Respiratory Exam: NORMAL BREATHING PATTERN Additional comments: good breath sounds b/l no wheezing slightly decreased at left base - Cardiovascular Exam Cardiovascular Exam: RRR, +S1, +S2 - GI/Abdominal Exam GI & Abdominal Exam: Normal Bowel Sounds, Soft Additional comments: NT, ND No guarding, No rebound - Extremities Exam Additional comments: no edema B/l LE Right lateral foot small round dry ulcer , no active d/c this is in region where pt. has had prior amputation - Neurological Exam Neurological exam: Alert, Oriented x 3 Laboratory Results - last 72 hr 10/05/16 10/05/16 10/05/16 17:30 17:30 18:24 WBC 11.2 H D RBC 3.88 L Hgb 11.9 L Hct 37.6 MCV 97.0 H MCH 30.8 MCHC 31.8 L RDW 14.9 H Plt Count 152 MPV 11.2 Neut % (Auto) 75.8 H Lymph % (Auto) 9.5 L Barron % (Auto) 13.2 H Eos % (Auto) 0.4 Baso % (Auto) 1.1 Neut # 8.5 H Lymph # 1.1 Barron # 1.5 H Eos # 0.0 Baso # 0.1 Neutrophils % (Manual) 73 Lymphocytes % (Manual) 13 L Monocytes % (Manual) 13 H Basophils % (Manual) 1 Platelet Estimate Normal ESR PT INR APTT pO2 41 VBG pH 7.31 L VBG pCO2 27 L VBG HCO3 15.6 VBG Total CO2 14.4 L VBG O2 Sat (Calc) 80.2 H VBG Base Excess -11.0 L VBG Potassium 6.0 H Glucose 293 H Lactate 2.6 H FiO2 21.0 Sodium 151 H 142.0 Potassium 5.0 Chloride 120 H 123.0 H Carbon Dioxide 14 L Anion Gap 22 H BUN 86 H Creatinine 3.3 H Est GFR ( Amer) 23 Est GFR (Non-Af Amer) 19 POC Glucose (mg/dL) Random Glucose 288 H Hemoglobin A1c Calcium 9.6 Phosphorus 4.9 H Magnesium 2.2 Iron TIBC % Saturation Ferritin Total Bilirubin 0.5 AST 15 L ALT 22 Alkaline Phosphatase 105 Total Creatine Kinase 187 H Troponin I 0.0130 NT-Pro-B Natriuret Pep 1750 H Total Protein 8.2 Albumin 3.8 Globulin 4.4 H Albumin/Globulin Ratio 0.9 L Triglycerides Cholesterol LDL Cholesterol Direct HDL Cholesterol Vitamin B12 Folate Thyroxine (T4) TSH 3rd Generation Venous Blood Potassium 6.0 H Urine Color Urine Clarity Urine pH Ur Specific [place] Urine Protein Urine Glucose (UA) Urine Ketones Urine Blood Urine Nitrate Urine Bilirubin Urine Urobilinogen Ur Leukocyte Esterase Urine RBC (Auto) Urine Microscopic WBC Ur Squamous Epith Cells Urine Yeast (Budding) Vancomycin Trough Alcohol, Quantitative < 10 10/05/16 10/05/16 10/05/16 19:09 20:14 20:35 WBC RBC Hgb Hct MCV MCH MCHC RDW Plt Count MPV Neut % (Auto) Lymph % (Auto) Barron % (Auto) Eos % (Auto) Baso % (Auto) Neut # Lymph # Barron # Eos # Baso # Neutrophils % (Manual) Lymphocytes % (Manual) Monocytes % (Manual) Basophils % (Manual) Platelet Estimate ESR PT 13.2 H INR 1.2 APTT 27.6 pO2 14 L VBG pH 7.27 L VBG pCO2 39 L VBG HCO3 16.1 VBG Total CO2 19.1 L VBG O2 Sat (Calc) 19.9 L VBG Base Excess -8.4 L VBG Potassium 4.7 Glucose 299 H Lactate 2.0 FiO2 21.0 Sodium 149.0 H Potassium Chloride 120.0 H Carbon Dioxide Anion Gap BUN Creatinine Est GFR ( Amer) Est GFR (Non-Af Amer) POC Glucose (mg/dL) Random Glucose Hemoglobin A1c Calcium Phosphorus Magnesium Iron TIBC % Saturation Ferritin Total Bilirubin AST ALT Alkaline Phosphatase Total Creatine Kinase Troponin I NT-Pro-B Natriuret Pep Total Protein Albumin Globulin Albumin/Globulin Ratio Triglycerides Cholesterol LDL Cholesterol Direct HDL Cholesterol Vitamin B12 Folate Thyroxine (T4) TSH 3rd Generation Venous Blood Potassium 4.7 Urine Color Yellow Urine Clarity Slighty-cloudy Urine pH 5.0 Ur Specific [place] 1.017 Urine Protein 100 Urine Glucose (UA) Neg Urine Ketones Negative Urine Blood Moderate Urine Nitrate Negative Urine Bilirubin Negative Urine Urobilinogen 0.2-1.0 Ur Leukocyte Esterase Neg Urine RBC (Auto) 9 H Urine Microscopic WBC 5 Ur Squamous Epith Cells < 1 Urine Yeast (Budding) Few H Vancomycin Trough Alcohol, Quantitative 10/06/16 10/06/16 10/06/16 05:25 11:14 12:30 WBC 10.1 RBC 3.13 L Hgb 9.8 L D Hct 30.6 L MCV 97.6 H MCH 31.4 H MCHC 32.2 L RDW 15.0 H Plt Count 150 MPV Neut % (Auto) Lymph % (Auto) Barron % (Auto) Eos % (Auto) Baso % (Auto) Neut # Lymph # Barron # Eos # Baso # Neutrophils % (Manual) Lymphocytes % (Manual) Monocytes % (Manual) Basophils % (Manual) Platelet Estimate ESR PT INR APTT pO2 VBG pH VBG pCO2 VBG HCO3 VBG Total CO2 VBG O2 Sat (Calc) VBG Base Excess VBG Potassium Glucose Lactate FiO2 Sodium Potassium Chloride Carbon Dioxide Anion Gap BUN Creatinine Est GFR ( Amer) Est GFR (Non-Af Amer) POC Glucose (mg/dL) 279 H 248 H Random Glucose Hemoglobin A1c Calcium Phosphorus Magnesium Iron TIBC % Saturation Ferritin Total Bilirubin AST ALT Alkaline Phosphatase Total Creatine Kinase Troponin I NT-Pro-B Natriuret Pep Total Protein Albumin Globulin Albumin/Globulin Ratio Triglycerides Cholesterol LDL Cholesterol Direct HDL Cholesterol Vitamin B12 Folate Thyroxine (T4) TSH 3rd Generation Venous Blood Potassium Urine Color Urine Clarity Urine pH Ur Specific [place] Urine Protein Urine Glucose (UA) Urine Ketones Urine Blood Urine Nitrate Urine Bilirubin Urine Urobilinogen Ur Leukocyte Esterase Urine RBC (Auto) Urine Microscopic WBC Ur Squamous Epith Cells Urine Yeast (Budding) Vancomycin Trough Alcohol, Quantitative 10/06/16 10/06/16 10/06/16 12:30 14:59 14:59 WBC RBC Hgb Hct MCV MCH MCHC RDW Plt Count MPV Neut % (Auto) Lymph % (Auto) Barron % (Auto) Eos % (Auto) Baso % (Auto) Neut # Lymph # Barron # Eos # Baso # Neutrophils % (Manual) Lymphocytes % (Manual) Monocytes % (Manual) Basophils % (Manual) Platelet Estimate ESR PT INR APTT pO2 VBG pH VBG pCO2 VBG HCO3 VBG Total CO2 VBG O2 Sat (Calc) VBG Base Excess VBG Potassium Glucose Lactate FiO2 Sodium 148 Potassium 4.2 Chloride 119 H Carbon Dioxide 15 L Anion Gap 18 BUN 76 H Creatinine 2.7 H Est GFR ( Amer) 28 Est GFR (Non-Af Amer) 23 POC Glucose (mg/dL) Random Glucose 214 H Hemoglobin A1c Calcium 8.6 Phosphorus 3.8 Magnesium 2.0 Iron 40 L TIBC 195 L % Saturation 21 Ferritin 1000.0 Total Bilirubin AST ALT Alkaline Phosphatase Total Creatine Kinase Troponin I NT-Pro-B Natriuret Pep Total Protein Albumin Globulin Albumin/Globulin Ratio Triglycerides Cholesterol LDL Cholesterol Direct HDL Cholesterol Vitamin B12 360 Folate > 20.0 Thyroxine (T4) TSH 3rd Generation Venous Blood Potassium Urine Color Urine Clarity Urine pH Ur Specific [place] Urine Protein Urine Glucose (UA) Urine Ketones Urine Blood Urine Nitrate Urine Bilirubin Urine Urobilinogen Ur Leukocyte Esterase Urine RBC (Auto) Urine Microscopic WBC Ur Squamous Epith Cells Urine Yeast (Budding) Vancomycin Trough Alcohol, Quantitative 10/06/16 10/06/16 10/06/16 16:51 18:00 21:35 WBC RBC Hgb Hct MCV MCH MCHC RDW Plt Count MPV Neut % (Auto) Lymph % (Auto) Barron % (Auto) Eos % (Auto) Baso % (Auto) Neut # Lymph # Barron # Eos # Baso # Neutrophils % (Manual) Lymphocytes % (Manual) Monocytes % (Manual) Basophils % (Manual) Platelet Estimate ESR 107 H PT INR APTT pO2 VBG pH VBG pCO2 VBG HCO3 VBG Total CO2 VBG O2 Sat (Calc) VBG Base Excess VBG Potassium Glucose Lactate FiO2 Sodium Potassium Chloride Carbon Dioxide Anion Gap BUN Creatinine Est GFR ( Amer) Est GFR (Non-Af Amer) POC Glucose (mg/dL) 201 H 174 H Random Glucose Hemoglobin A1c Calcium Phosphorus Magnesium Iron TIBC % Saturation Ferritin Total Bilirubin AST ALT Alkaline Phosphatase Total Creatine Kinase Troponin I NT-Pro-B Natriuret Pep Total Protein Albumin Globulin Albumin/Globulin Ratio Triglycerides Cholesterol LDL Cholesterol Direct HDL Cholesterol Vitamin B12 Folate Thyroxine (T4) TSH 3rd Generation Venous Blood Potassium Urine Color Urine Clarity Urine pH Ur Specific [place] Urine Protein Urine Glucose (UA) Urine Ketones Urine Blood Urine Nitrate Urine Bilirubin Urine Urobilinogen Ur Leukocyte Esterase Urine RBC (Auto) Urine Microscopic WBC Ur Squamous Epith Cells Urine Yeast (Budding) Vancomycin Trough Alcohol, Quantitative 10/07/16 10/07/16 10/07/16 05:39 08:30 08:30 WBC 11.1 H RBC 3.11 L Hgb 9.7 L Hct 30.0 L MCV 96.3 H MCH 31.2 H MCHC 32.4 L RDW 14.7 H Plt Count 127 L D MPV Neut % (Auto) Lymph % (Auto) Barron % (Auto) Eos % (Auto) Baso % (Auto) Neut # Lymph # Barron # Eos # Baso # Neutrophils % (Manual) Lymphocytes % (Manual) Monocytes % (Manual) Basophils % (Manual) Platelet Estimate ESR PT INR APTT pO2 VBG pH VBG pCO2 VBG HCO3 VBG Total CO2 VBG O2 Sat (Calc) VBG Base Excess VBG Potassium Glucose Lactate FiO2 Sodium 142 Potassium 3.9 Chloride 118 H Carbon Dioxide 14 L Anion Gap 14 BUN 57 H Creatinine 2.2 H Est GFR ( Amer) 36 Est GFR (Non-Af Amer) 30 POC Glucose (mg/dL) 185 H Random Glucose 164 H Hemoglobin A1c Calcium 8.3 L Phosphorus Magnesium Iron TIBC % Saturation Ferritin Total Bilirubin 0.4 AST 21 ALT 29 Alkaline Phosphatase 90 Total Creatine Kinase Troponin I NT-Pro-B Natriuret Pep Total Protein 6.0 L Albumin 2.8 L D Globulin 3.2 Albumin/Globulin Ratio 0.9 L Triglycerides 358 H Cholesterol 112 LDL Cholesterol Direct 44 HDL Cholesterol 8 L Vitamin B12 Folate Thyroxine (T4) 6.32 TSH 3rd Generation 1.68 Venous Blood Potassium Urine Color Urine Clarity Urine pH Ur Specific [place] Urine Protein Urine Glucose (UA) Urine Ketones Urine Blood Urine Nitrate Urine Bilirubin Urine Urobilinogen Ur Leukocyte Esterase Urine RBC (Auto) Urine Microscopic WBC Ur Squamous Epith Cells Urine Yeast (Budding) Vancomycin Trough Alcohol, Quantitative 10/07/16 10/07/16 10/07/16 08:30 11:04 16:04 WBC RBC Hgb Hct MCV MCH MCHC RDW Plt Count MPV Neut % (Auto) Lymph % (Auto) Barron % (Auto) Eos % (Auto) Baso % (Auto) Neut # Lymph # Barron # Eos # Baso # Neutrophils % (Manual) Lymphocytes % (Manual) Monocytes % (Manual) Basophils % (Manual) Platelet Estimate ESR PT INR APTT pO2 VBG pH VBG pCO2 VBG HCO3 VBG Total CO2 VBG O2 Sat (Calc) VBG Base Excess VBG Potassium Glucose Lactate FiO2 Sodium Potassium Chloride Carbon Dioxide Anion Gap BUN Creatinine Est GFR ( Amer) Est GFR (Non-Af Amer) POC Glucose (mg/dL) 207 H 222 H Random Glucose Hemoglobin A1c 7.4 H Calcium Phosphorus Magnesium Iron TIBC % Saturation Ferritin Total Bilirubin AST ALT Alkaline Phosphatase Total Creatine Kinase Troponin I NT-Pro-B Natriuret Pep Total Protein Albumin Globulin Albumin/Globulin Ratio Triglycerides Cholesterol LDL Cholesterol Direct HDL Cholesterol Vitamin B12 Folate Thyroxine (T4) TSH 3rd Generation Venous Blood Potassium Urine Color Urine Clarity Urine pH Ur Specific [place] Urine Protein Urine Glucose (UA) Urine Ketones Urine Blood Urine Nitrate Urine Bilirubin Urine Urobilinogen Ur Leukocyte Esterase Urine RBC (Auto) Urine Microscopic WBC Ur Squamous Epith Cells Urine Yeast (Budding) Vancomycin Trough Alcohol, Quantitative 10/07/16 10/08/16 10/08/16 21:12 05:00 05:00 WBC RBC Hgb Hct MCV MCH MCHC RDW Plt Count MPV Neut % (Auto) Lymph % (Auto) Barron % (Auto) Eos % (Auto) Baso % (Auto) Neut # Lymph # Barron # Eos # Baso # Neutrophils % (Manual) Lymphocytes % (Manual) Monocytes % (Manual) Basophils % (Manual) Platelet Estimate ESR PT INR APTT pO2 VBG pH VBG pCO2 VBG HCO3 VBG Total CO2 VBG O2 Sat (Calc) VBG Base Excess VBG Potassium Glucose Lactate FiO2 Sodium 141 Potassium 3.9 Chloride 118 H Carbon Dioxide 12 L Anion Gap 15 BUN 49 H Creatinine 2.0 H Est GFR ( Amer) 40 Est GFR (Non-Af Amer) 33 POC Glucose (mg/dL) 306 H Random Glucose 221 H Hemoglobin A1c Calcium 8.2 L Phosphorus Magnesium Iron TIBC % Saturation Ferritin Total Bilirubin AST ALT Alkaline Phosphatase Total Creatine Kinase Troponin I NT-Pro-B Natriuret Pep Total Protein Albumin Globulin Albumin/Globulin Ratio Triglycerides Cholesterol LDL Cholesterol Direct HDL Cholesterol Vitamin B12 Folate Thyroxine (T4) TSH 3rd Generation Venous Blood Potassium Urine Color Urine Clarity Urine pH Ur Specific [place] Urine Protein Urine Glucose (UA) Urine Ketones Urine Blood Urine Nitrate Urine Bilirubin Urine Urobilinogen Ur Leukocyte Esterase Urine RBC (Auto) Urine Microscopic WBC Ur Squamous Epith Cells Urine Yeast (Budding) Vancomycin Trough 12.0 H Alcohol, Quantitative 10/08/16 10/08/16 10/08/16 05:10 11:25 16:32 WBC RBC Hgb Hct MCV MCH MCHC RDW Plt Count MPV Neut % (Auto) Lymph % (Auto) Barron % (Auto) Eos % (Auto) Baso % (Auto) Neut # Lymph # Barron # Eos # Baso # Neutrophils % (Manual) Lymphocytes % (Manual) Monocytes % (Manual) Basophils % (Manual) Platelet Estimate ESR PT INR APTT pO2 VBG pH VBG pCO2 VBG HCO3 VBG Total CO2 VBG O2 Sat (Calc) VBG Base Excess VBG Potassium Glucose Lactate FiO2 Sodium Potassium Chloride Carbon Dioxide Anion Gap BUN Creatinine Est GFR ( Amer) Est GFR (Non-Af Amer) POC Glucose (mg/dL) 237 H 333 H 316 H Random Glucose Hemoglobin A1c Calcium Phosphorus Magnesium Iron TIBC % Saturation Ferritin Total Bilirubin AST ALT Alkaline Phosphatase Total Creatine Kinase Troponin I NT-Pro-B Natriuret Pep Total Protein Albumin Globulin Albumin/Globulin Ratio Triglycerides Cholesterol LDL Cholesterol Direct HDL Cholesterol Vitamin B12 Folate Thyroxine (T4) TSH 3rd Generation Venous Blood Potassium Urine Color Urine Clarity Urine pH Ur Specific [place] Urine Protein Urine Glucose (UA) Urine Ketones Urine Blood Urine Nitrate Urine Bilirubin Urine Urobilinogen Ur Leukocyte Esterase Urine RBC (Auto) Urine Microscopic WBC Ur Squamous Epith Cells Urine Yeast (Budding) Vancomycin Trough Alcohol, Quantitative Microbiology 10/06/16 13:10 Blood Blood Culture - Preliminary NO GROWTH AFTER 48 HOURS 10/05/16 18:49 Blood S.aureus & Coag-Neg Staph PNA FISH - Final 10/05/16 18:49 Blood Blood Culture - Final Enterococcus Faecalis 10/05/16 18:49 Blood Gram Stain - Final 10/05/16 19:09 Urine,Triplett Urine Culture - Final No Growth (<1,000 CFU/ML) Assessment and Plan (1) Renal insufficiency Status: Deleted (2) Weakness Status: Chronic (3) Diabetes Status: Acute (4) Bacteremia due to Gram-positive bacteria Status: Acute - Assessment and Plan (Free Text) Assessment: A/P- 71 year old amle with h/o DM ii, HTN s/p fall and found to have GPC in prelim blood cx. remaisna febrile slight wbc rise today admission blood cx- e.fecalis. urine cx- neg repeat blood cx from 10/06- negative High ESR Ech0 no vegetations as per personal care assistant's report. plan- continue with IV vanco, renal dose. day #4 in light of the acute renal insufficiency dose renally. Keep trough <20. check 2 more repeat blood cx. if no contraindications check right foot MRI to r/o any residual OM ( if no CI to MRI). all above d/w TAR LEVELER.
--- NOTE | 2016-10-08 14:53 | CARD ---
APPROVED REPORT EKG Measurement Heart [id number] <Conclusion> Atrial fibrillation with rapid ventricular response ST & T wave abnormality, consider lateral ischemia Abnormal ECG
[2016-10-08] MEDS: Digoxin 500 mcg/2ml (0.5 mg/2ml) Inj IVP SCH (16:35)
--- NOTE | 2016-10-08 17:09 | CP.PCM.CON ---
History of Present Illness - History of Present Illness History of Present Illness: 71 yo M presents to ED after a fall. Pt is a poor historian, unable to give complete past medical history. Pt seen and examined at bedside with Dr. Singh. As per note, pt has several comorbities, including a-fib, DM, renal insufficiency. Pt states he has right hip pain. Orthopaedics consulted for evaluation and treatment of hip pain. Pt states he does not use cane or walker to ambulate, however currently has pain with ambulation. ROS- unable to completely evaluate due to pt current condition Review of Systems - Constitutional Constitutional: Fatigue Additional comments: Pt alert and oriented, responds to commands, however unable to fully answer all questions - Cardiovascular Cardiovascular: Irregular Heart Rhythm Past Patient History - Past Medical History & Family History Past Medical History?: Yes - Past Social History Smoking Status: Light Smoker < 10 Cigarettes Daily Alcohol: Occasional Home Situation {Lives}: With Family - CARDIAC Hx Cardiac Disorders: Yes Hx Hypercholesterolemia: Yes Hx Hypertension: Yes - PULMONARY Hx Respiratory Disorders: No - NEUROLOGICAL Hx Neurological Disorder: No - HEENT Hx HEENT Problems: No - RENAL Hx Chronic Kidney Disease: Yes Other/Comment: Renal Insufficiency. - ENDOCRINE/METABOLIC Hx Endocrine Disorders: Yes Hx Diabetes Mellitus Type 2: Yes - HEMATOLOGICAL/ONCOLOGICAL Hx Blood Disorders: Yes Hx Anemia: Yes - INTEGUMENTARY Hx Dermatological Problems: No - MUSCULOSKELETAL/RHEUMATOLOGICAL Hx Musculoskeletal Disorders: Yes (R hip pain) Hx Falls: Yes Hx Osteomyelitis: Yes (R foot) Hx Unsteady Gait: Yes - GASTROINTESTINAL Hx Gastrointestinal Disorders: No - GENITOURINARY/GYNECOLOGICAL Hx Genitourinary Disorders: Yes Hx Urinary Tract Infection: Yes - PSYCHIATRIC Hx Psychophysiologic Disorder: No - SURGICAL HISTORY Hx Surgeries: No - ANESTHESIA Hx Anesthesia: No Hx Anesthesia Reactions: No Hx Malignant Hyperthermia: No Meds Allergies/Adverse Reactions: Allergies Allergy/AdvReac Type Severity Reaction Status Date / Time No Known Allergies Allergy Verified 10/05/16 16:18 - Medications Medications: Current Medications Digoxin (Lanoxin) 0.125 mg IVP DAILY [facility] Last Admin: 10/08/16 16:35 Dose: 0.125 mg Diltiazem HCl (Cardizem) 30 mg PO QID [facility] Last Admin: 10/08/16 16:39 Dose: 30 mg Enoxaparin Sodium (Lovenox) 30 mg SC DAILY [facility] PRN Reason: Protocol Last Admin: 10/08/16 09:50 Dose: 30 mg Vancomycin HCl 750 mg/ Sodium (Chloride) 250 mls @ 166.667 mls/hr IVPB DAILY [facility] Last Admin: 10/08/16 09:51 Dose: 166.667 mls/hr Insulin Human Regular (Humulin R) 0 units SC ACHS [facility] PRN Reason: Protocol Last Admin: 10/08/16 16:37 Dose: 4 unit Physical Exam - Constitutional Appears: No Acute Distress Additional comments: Alert and oriented - Extremities Exam Additional comments: RLE: +Mild TTP over greater trochanter ROM limited secondary to pain Pt able to stright leg raise and actively ROM RLE Calves soft and nontender b/l N/V intact distally Results - Vital Signs Recent Vital Signs: Last Vital Signs Temp 99.1 F 10/08/16 16:15 Pulse 94 H 10/08/16 16:39 Resp 18 10/08/16 16:15 BP 157/69 H 10/08/16 16:39 Pulse Ox 100 10/08/16 16:39 - Labs Result Diagrams: 10/07/16 08:30 10/08/16 05:00 Labs: Laboratory Results - last 24 hr 10/07/16 10/08/16 10/08/16 21:12 05:00 05:00 Sodium 141 Potassium 3.9 Chloride 118 H Carbon Dioxide 12 L Anion Gap 15 BUN 49 H Creatinine 2.0 H Est GFR ( Amer) 40 Est GFR (Non-Af Amer) 33 POC Glucose (mg/dL) 306 H Random Glucose 221 H Calcium 8.2 L Vancomycin Trough 12.0 H 10/08/16 10/08/16 10/08/16 05:10 11:25 16:32 Sodium Potassium Chloride Carbon Dioxide Anion Gap BUN Creatinine Est GFR ( Amer) Est GFR (Non-Af Amer) POC Glucose (mg/dL) 237 H 333 H 316 H Random Glucose Calcium Vancomycin Trough Assessment & Plan - Assessment and Plan (Free Text) Assessment: 71 yo M presents with right hip osteonecrsis Plan: 71 yo M presents with right hip osteonecrsis Xray and CT imaging of right hip reviewed No acute fracture seen on xray or CT Imaging reveals right hip osteonecrosis No acute orthopaedic surgery intervention required at this time Recommend Pain control PT/OT - WBAT RLE DVT ppx Pt can follow up as outpatient in orthopaedic office for further evaluation of right hip pain Discussed with Dr. Singh
--- NOTE | 2016-10-08 21:35 | CP.PCM.PN ---
Subjective - Date & Time of Evaluation Date of Evaluation: 10/08/16 Time of Evaluation: 10:30 - Subjective Subjective: F/U Fall, Weakness. 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 Pt awake, confused,eating puree diet with the help of the nurse. Objective - Vital Signs/Intake and Output Vital Signs (last 24 hours): Temp Pulse Resp BP Pulse Ox 99.1 F 94 H 20 168/73 H 100 10/08/16 19:52 10/08/16 19:52 10/08/16 19:52 10/08/16 19:52 10/08/16 19:52 - Medications Medications: Current Medications Digoxin (Lanoxin) 0.125 mg IVP DAILY [facility] Last Admin: 10/08/16 16:35 Dose: 0.125 mg Diltiazem HCl (Cardizem) 30 mg PO QID [facility] Last Admin: 10/08/16 16:39 Dose: 30 mg Enoxaparin Sodium (Lovenox) 30 mg SC DAILY [facility] PRN Reason: Protocol Last Admin: 10/08/16 09:50 Dose: 30 mg Vancomycin HCl 750 mg/ Sodium (Chloride) 250 mls @ 166.667 mls/hr IVPB DAILY [facility] Last Admin: 10/08/16 09:51 Dose: 166.667 mls/hr Insulin Human Regular (Humulin R) 0 units SC ACHS [facility] PRN Reason: Protocol Last Admin: 10/08/16 16:37 Dose: 4 unit Lorazepam (Ativan) 1 mg IVP ONCE ONE Stop: 10/09/16 10:01 - Labs Labs: 10/07/16 08:30 10/08/16 05:00 PT 13.2 Seconds (9.8-13.1) H 10/05/16 20:14 INR 1.2 (0.9-1.2) 10/05/16 20:14 APTT 27.6 Seconds (25.6-37.1) 10/05/16 20:14 - Constitutional Appears: No Acute Distress, Chronically Ill - Head Exam Head Exam: NORMAL INSPECTION - Eye Exam Eye Exam: PERRL - ENT Exam ENT Exam: Normal Oropharynx - Neck Exam Neck Exam: Normal Inspection - Respiratory Exam Respiratory Exam: NORMAL BREATHING PATTERN - Cardiovascular Exam Cardiovascular Exam: Irregular Rhythm - Exam Additional comments: Triplett Cath in place. - Extremities Exam Additional comments: Red circular area on R hip, limited ROM RLE due to pain, dry ulcer R lateral foot - Back Exam Additional comments: Rash on buttocks and perineum. - Neurological Exam Neurological Exam: Awake Additional comments: Oriented x2, forgetful, no follows commands. - Psychiatric Exam Psychiatric exam: Normal Mood - Skin Skin Exam: Warm Assessment and Plan (1) Falls Status: Acute (2) Dehydration Status: Acute (3) Bacteremia due to Gram-positive bacteria Status: Acute (4) Weakness Status: Chronic (5) Renal failure Status: Acute (6) Hyperglycemia Status: Acute (7) Diabetes mellitus type 2 in nonobese Status: Chronic (8) New onset a-fib Status: Acute (9) Hip pain Status: Chronic (10) Avascular necrosis of bone of right hip Status: Acute (11) HTN (hypertension) Status: Chronic (12) Gait difficulty Status: Chronic - Assessment and Plan (Free Text) Plan: A Fib with RVR, continue Vanco, Cardizem, Lanoxin and rest of Tx.
[2016-10-09 07:53] LABS: HEMATOCRIT 27.1 % (35.0-51.0); MEAN CELL VOLUME 96.1 fl (80.0-94.0); MEAN CORPUSCULAR HEMOGLOBIN 30.3 pg (27.0-31.0); MEAN CORPUSCULAR HGB CONC 31.5 g/dL (33.0-37.0); RED CELL DISTRIBUTION WIDTH 15.2 % (11.5-14.5); WHITE BLOOD COUNT 12.2 K/uL (4.8-10.8)
[2016-10-09 08:13] LABS: CALCIUM 8.5 mg/dL (8.4-10.2); POTASSIUM 4.3 MMOL/L (3.6-5.0)
[2016-10-09] MEDS: Insulin Regular 100 units/ml SC SCH ×4 (08:30→21:24)
[2016-10-09] MEDS: Digoxin 500 mcg/2ml (0.5 mg/2ml) Inj IVP SCH (09:45)
[2016-10-09] MEDS: Enoxaparin 30 mg Syringe SC SCH (11:38)
--- NOTE | 2016-10-09 13:54 | CP.PCM.PN ---
Subjective - Date & Time of Evaluation Date of Evaluation: 10/09/16 Time of Evaluation: 11:00 - Subjective Subjective: F/U Fall/ Weakness. Pt awake, confused, no A/D. HR regular today. Objective - Vital Signs/Intake and Output Vital Signs (last 24 hours): Temp Pulse Resp BP Pulse Ox 97.6 F 100 H 18 144/72 98 10/09/16 12:00 10/09/16 12:00 10/09/16 12:00 10/09/16 12:00 10/09/16 12:00 - Medications Medications: Current Medications Digoxin (Lanoxin) 0.125 mg IVP DAILY [facility] Last Admin: 10/09/16 09:45 Dose: 0.125 mg Diltiazem HCl (Cardizem) 30 mg PO QID [facility] Last Admin: 10/09/16 12:14 Dose: Not Given Enoxaparin Sodium (Lovenox) 30 mg SC DAILY [facility] PRN Reason: Protocol Last Admin: 10/09/16 11:38 Dose: 30 mg Vancomycin HCl 750 mg/ Sodium (Chloride) 250 mls @ 166.667 mls/hr IVPB DAILY [facility] Last Admin: 10/09/16 12:12 Dose: 166.667 mls/hr Insulin Human Regular (Humulin R) 0 units SC ACHS [facility] PRN Reason: Protocol Last Admin: 10/09/16 12:13 Dose: 4 unit - Labs Labs: 10/09/16 06:30 10/09/16 06:30 PT 13.2 Seconds (9.8-13.1) H 10/05/16 20:14 INR 1.2 (0.9-1.2) 10/05/16 20:14 APTT 27.6 Seconds (25.6-37.1) 10/05/16 20:14 - Constitutional Appears: No Acute Distress - Head Exam Head Exam: NORMAL INSPECTION - Eye Exam Eye Exam: PERRL - ENT Exam ENT Exam: Normal Oropharynx - Neck Exam Neck Exam: Normal Inspection - Respiratory Exam Respiratory Exam: NORMAL BREATHING PATTERN - Cardiovascular Exam Cardiovascular Exam: REGULAR RHYTHM - GI/Abdominal Exam GI & Abdominal Exam: Soft, Normal Bowel Sounds - Extremities Exam Additional comments: RLE with ROM limited 2nd to pain, Red circular area on R hip, dry ulcer R lateral foot. - Back Exam Additional comments: Redness in buttocks and perineum improving. - Neurological Exam Neurological Exam: Awake Additional comments: Confused, do not follows commands, able to talk with single words, generalized weakness - Psychiatric Exam Additional comments: Calm - Skin Skin Exam: Warm Assessment and Plan (1) Falls Status: Acute (2) Dehydration Status: Acute (3) Bacteremia due to Gram-positive bacteria Status: Acute (4) Weakness Status: Chronic (5) Renal failure Status: Acute (6) Hyperglycemia Status: Acute (7) Diabetes mellitus type 2 in nonobese Status: Chronic (8) New onset a-fib Status: Acute (9) Hip pain Status: Chronic (10) Avascular necrosis of bone of right hip Status: Ruled-out (11) HTN (hypertension) Status: Chronic (12) Gait difficulty Status: Chronic - Assessment and Plan (Free Text) Plan: Pt with A Fib, has regular sinus rhythm in telemetry today. Continue Vanco, Ativan before MRI R hip today.
--- NOTE | 2016-10-09 14:02 | CP.PCM.PN ---
Subjective - Date & Time of Evaluation Date of Evaluation: 10/09/16 Time of Evaluation: 14:02 - Subjective Subjective: ID Note- pt. seen and examined today. no new events. afebrile Objective - Vital Signs/Intake and Output Vital Signs (last 24 hours): Temp Pulse Resp BP Pulse Ox 97.6 F 100 H 18 144/72 98 10/09/16 12:00 10/09/16 12:00 10/09/16 12:00 10/09/16 12:00 10/09/16 12:00 - Medications Medications: Current Medications Digoxin (Lanoxin) 0.125 mg IVP DAILY [facility] Last Admin: 10/09/16 09:45 Dose: 0.125 mg Diltiazem HCl (Cardizem) 30 mg PO QID [facility] Last Admin: 10/09/16 12:14 Dose: Not Given Enoxaparin Sodium (Lovenox) 30 mg SC DAILY [facility] PRN Reason: Protocol Last Admin: 10/09/16 11:38 Dose: 30 mg Vancomycin HCl 750 mg/ Sodium (Chloride) 250 mls @ 166.667 mls/hr IVPB DAILY [facility] Last Admin: 10/09/16 12:12 Dose: 166.667 mls/hr Insulin Human Regular (Humulin R) 0 units SC ACHS [facility] PRN Reason: Protocol Last Admin: 10/09/16 12:13 Dose: 4 unit - Labs Labs: - Additional Findings Additional findings: - Constitutional Appears: No Acute Distress - Head Exam Head Exam: ATRAUMATIC - Eye Exam Eye Exam: PERRL - ENT Exam ENT Exam: Normal Oropharynx - Neck Exam Neck exam: Positive for: Full Rom - Respiratory Exam Respiratory Exam: NORMAL BREATHING PATTERN Additional comments: good breath sounds b/l no wheezing slightly decreased at left base - Cardiovascular Exam Cardiovascular Exam: RRR, +S1, +S2 - GI/Abdominal Exam GI & Abdominal Exam: Normal Bowel Sounds, Soft Additional comments: NT, ND No guarding, No rebound - Extremities Exam Additional comments: no edema B/l LE Right lateral foot small round dry ulcer , no active d/c this is in region where pt. has had prior amputation - Neurological Exam Neurological exam: Alert, Oriented x 3 Laboratory Results - last 72 hr 10/06/16 10/06/16 10/06/16 14:59 14:59 16:51 WBC RBC Hgb Hct MCV MCH MCHC RDW Plt Count ESR Sodium Potassium Chloride Carbon Dioxide Anion Gap BUN Creatinine Est GFR ( Amer) Est GFR (Non-Af Amer) POC Glucose (mg/dL) 201 H Random Glucose Hemoglobin A1c Calcium Iron 40 L TIBC 195 L % Saturation 21 Ferritin 1000.0 Total Bilirubin AST ALT Alkaline Phosphatase Total Protein Albumin Globulin Albumin/Globulin Ratio Triglycerides Cholesterol LDL Cholesterol Direct HDL Cholesterol Vitamin B12 360 Folate > 20.0 Thyroxine (T4) TSH 3rd Generation Vancomycin Trough 10/06/16 10/06/16 10/07/16 18:00 21:35 05:39 WBC RBC Hgb Hct MCV MCH MCHC RDW Plt Count ESR 107 H Sodium Potassium Chloride Carbon Dioxide Anion Gap BUN Creatinine Est GFR ( Amer) Est GFR (Non-Af Amer) POC Glucose (mg/dL) 174 H 185 H Random Glucose Hemoglobin A1c Calcium Iron TIBC % Saturation Ferritin Total Bilirubin AST ALT Alkaline Phosphatase Total Protein Albumin Globulin Albumin/Globulin Ratio Triglycerides Cholesterol LDL Cholesterol Direct HDL Cholesterol Vitamin B12 Folate Thyroxine (T4) TSH 3rd Generation Vancomycin Trough 10/07/16 10/07/16 10/07/16 08:30 08:30 08:30 WBC 11.1 H RBC 3.11 L Hgb 9.7 L Hct 30.0 L MCV 96.3 H MCH 31.2 H MCHC 32.4 L RDW 14.7 H Plt Count 127 L D ESR Sodium 142 Potassium 3.9 Chloride 118 H Carbon Dioxide 14 L Anion Gap 14 BUN 57 H Creatinine 2.2 H Est GFR ( Amer) 36 Est GFR (Non-Af Amer) 30 POC Glucose (mg/dL) Random Glucose 164 H Hemoglobin A1c 7.4 H Calcium 8.3 L Iron TIBC % Saturation Ferritin Total Bilirubin 0.4 AST 21 ALT 29 Alkaline Phosphatase 90 Total Protein 6.0 L Albumin 2.8 L D Globulin 3.2 Albumin/Globulin Ratio 0.9 L Triglycerides 358 H Cholesterol 112 LDL Cholesterol Direct 44 HDL Cholesterol 8 L Vitamin B12 Folate Thyroxine (T4) 6.32 TSH 3rd Generation 1.68 Vancomycin Trough 10/07/16 10/07/16 10/07/16 11:04 16:04 21:12 WBC RBC Hgb Hct MCV MCH MCHC RDW Plt Count ESR Sodium Potassium Chloride Carbon Dioxide Anion Gap BUN Creatinine Est GFR ( Amer) Est GFR (Non-Af Amer) POC Glucose (mg/dL) 207 H 222 H 306 H Random Glucose Hemoglobin A1c Calcium Iron TIBC % Saturation Ferritin Total Bilirubin AST ALT Alkaline Phosphatase Total Protein Albumin Globulin Albumin/Globulin Ratio Triglycerides Cholesterol LDL Cholesterol Direct HDL Cholesterol Vitamin B12 Folate Thyroxine (T4) TSH 3rd Generation Vancomycin Trough 10/08/16 10/08/16 10/08/16 05:00 05:00 05:10 WBC RBC Hgb Hct MCV MCH MCHC RDW Plt Count ESR Sodium 141 Potassium 3.9 Chloride 118 H Carbon Dioxide 12 L Anion Gap 15 BUN 49 H Creatinine 2.0 H Est GFR ( Amer) 40 Est GFR (Non-Af Amer) 33 POC Glucose (mg/dL) 237 H Random Glucose 221 H Hemoglobin A1c Calcium 8.2 L Iron TIBC % Saturation Ferritin Total Bilirubin AST ALT Alkaline Phosphatase Total Protein Albumin Globulin Albumin/Globulin Ratio Triglycerides Cholesterol LDL Cholesterol Direct HDL Cholesterol Vitamin B12 Folate Thyroxine (T4) TSH 3rd Generation Vancomycin Trough 12.0 H 10/08/16 10/08/16 10/08/16 11:25 16:32 21:03 WBC RBC Hgb Hct MCV MCH MCHC RDW Plt Count ESR Sodium Potassium Chloride Carbon Dioxide Anion Gap BUN Creatinine Est GFR ( Amer) Est GFR (Non-Af Amer) POC Glucose (mg/dL) 333 H 316 H 336 H Random Glucose Hemoglobin A1c Calcium Iron TIBC % Saturation Ferritin Total Bilirubin AST ALT Alkaline Phosphatase Total Protein Albumin Globulin Albumin/Globulin Ratio Triglycerides Cholesterol LDL Cholesterol Direct HDL Cholesterol Vitamin B12 Folate Thyroxine (T4) TSH 3rd Generation Vancomycin Trough 10/09/16 10/09/16 10/09/16 05:23 06:30 06:30 WBC 12.2 H RBC 2.83 L Hgb 8.6 L Hct 27.1 L MCV 96.1 H MCH 30.3 MCHC 31.5 L RDW 15.2 H Plt Count 136 ESR Sodium 144 Potassium 4.3 Chloride 118 H Carbon Dioxide 17 L Anion Gap 13 BUN 47 H Creatinine 2.2 H Est GFR ( Amer) 36 Est GFR (Non-Af Amer) 30 POC Glucose (mg/dL) 226 H Random Glucose 227 H Hemoglobin A1c Calcium 8.5 Iron TIBC % Saturation Ferritin Total Bilirubin AST ALT Alkaline Phosphatase Total Protein Albumin Globulin Albumin/Globulin Ratio Triglycerides Cholesterol LDL Cholesterol Direct HDL Cholesterol Vitamin B12 Folate Thyroxine (T4) TSH 3rd Generation Vancomycin Trough 10/09/16 11:27 WBC RBC Hgb Hct MCV MCH MCHC RDW Plt Count ESR Sodium Potassium Chloride Carbon Dioxide Anion Gap BUN Creatinine Est GFR ( Amer) Est GFR (Non-Af Amer) POC Glucose (mg/dL) 303 H Random Glucose Hemoglobin A1c Calcium Iron TIBC % Saturation Ferritin Total Bilirubin AST ALT Alkaline Phosphatase Total Protein Albumin Globulin Albumin/Globulin Ratio Triglycerides Cholesterol LDL Cholesterol Direct HDL Cholesterol Vitamin B12 Folate Thyroxine (T4) TSH 3rd Generation Vancomycin Trough Microbiology 10/06/16 13:10 Blood Blood Culture - Preliminary NO GROWTH AFTER 3 DAYS 10/05/16 18:49 Blood S.aureus & Coag-Neg Staph PNA FISH - Final 10/05/16 18:49 Blood Blood Culture - Final Enterococcus Faecalis 10/05/16 18:49 Blood Gram Stain - Final 10/05/16 19:09 Urine,Triplett Urine Culture - Final No Growth (<1,000 CFU/ML) Assessment and Plan (1) Renal insufficiency Status: Deleted (2) Weakness Status: Chronic (3) Diabetes Status: Acute (4) Bacteremia due to Gram-positive bacteria Status: Acute - Assessment and Plan (Free Text) Assessment: A/P- 71 year old amle with h/o DM ii, HTN s/p fall and found to have GPC in prelim blood cx. remains febrile slight wbc rise today admission blood cx- e.fecalis. urine cx- neg repeat blood cx from 10/06- negative High ESR Echo- no vegetations as per quality control inspector heading's report. plan- chek cxr today in light of slight leukocytosis today. continue with IV vanco, renal dose. day #5 Keep trough <20. check 2 more repeat blood cx. await foot MRI result.
--- NOTE | 2016-10-09 15:38 | CP.PCM.PN ---
Subjective - Date & Time of Evaluation Date of Evaluation: 10/09/16 Time of Evaluation: 15:36 - Subjective Subjective: Lethargic Sinus rhythm with APCs Official Echo report , normal EF Objective - Vital Signs/Intake and Output Vital Signs (last 24 hours): Temp Pulse Resp BP Pulse Ox 97.6 F 100 H 18 144/72 98 10/09/16 12:00 10/09/16 12:00 10/09/16 12:00 10/09/16 12:00 10/09/16 12:00 - Medications Medications: Current Medications Digoxin (Lanoxin) 0.125 mg IVP DAILY [facility] Last Admin: 10/09/16 09:45 Dose: 0.125 mg Diltiazem HCl (Cardizem) 30 mg PO QID [facility] Last Admin: 10/09/16 12:14 Dose: Not Given Enoxaparin Sodium (Lovenox) 30 mg SC DAILY [facility] PRN Reason: Protocol Last Admin: 10/09/16 11:38 Dose: 30 mg Vancomycin HCl 750 mg/ Sodium (Chloride) 250 mls @ 166.667 mls/hr IVPB DAILY [facility] Last Admin: 10/09/16 12:12 Dose: 166.667 mls/hr Insulin Human Regular (Humulin R) 0 units SC ACHS [facility] PRN Reason: Protocol Last Admin: 10/09/16 12:13 Dose: 4 unit - Labs Labs: 10/09/16 06:30 10/09/16 06:30 PT 13.2 Seconds (9.8-13.1) H 10/05/16 20:14 INR 1.2 (0.9-1.2) 10/05/16 20:14 APTT 27.6 Seconds (25.6-37.1) 10/05/16 20:14 - Constitutional Appears: Toxic - Eye Exam Eye Exam: Normal appearance - Neck Exam Neck Exam: Normal Inspection - Respiratory Exam Respiratory Exam: Decreased Breath Sounds - Cardiovascular Exam Cardiovascular Exam: REGULAR RHYTHM - Extremities Exam Extremities Exam: Normal Inspection Assessment and Plan - Assessment and Plan (Free Text) Assessment: Prox A Fib E. Fecalis Bacteremia CKD Plan: Cont. Digoxin (Lanoxin) 0.125 mg IVP DAILY [facility] Last Admin: 10/09/16 09:45 Dose: 0.125 mg Diltiazem HCl (Cardizem) 30 mg PO QID [facility] Last Admin: 10/09/16 12:14 Dose: Not Given Enoxaparin Sodium (Lovenox) 30 mg SC DAILY [facility] PRN Reason: Protocol Last Admin: 10/09/16 11:38 Dose: 30 mg Vancomycin HCl 750 mg/ Sodium (Chloride) 250 mls @ 166.667 mls/hr IVPB DAILY [facility] Last Admin: 10/09/16 12:12 Dose: 166.667 mls/hr Insulin Human Regular (Humulin R) 0 units SC ACHS [facility] PRN Reason: Protocol Last Admin: 10/09/16 12:13 Dose: 4 unit Digoxin level in AM
[2016-10-10] MEDS: Insulin Regular 100 units/ml SC SCH ×4 (06:56→22:39)
[2016-10-10 07:29] LABS: BASO # 0.1 K/uL (0.0-0.2); BASO % 0.6 % (0.0-2.0); EOS # 0.4 K/uL (0.0-0.7); EOS % 3.2 % (0.0-4.0); HEMATOCRIT 27.6 % (35.0-51.0); LYMPH # 1.7 K/uL (1.0-4.3); LYMPH % 11.8 % (20.0-40.0); MEAN CELL VOLUME 95.3 fl (80.0-94.0); MEAN CORPUSCULAR HEMOGLOBIN 30.3 pg (27.0-31.0); MEAN CORPUSCULAR HGB CONC 31.8 g/dL (33.0-37.0); MEAN PLATELET VOLUME 10.2 fl (7.2-11.7); MONO # 1.1 K/uL (0.0-0.8); MONO % 7.8 % (0.0-10.0); NEUT # 10.7 K/uL (1.8-7.0); NEUT % 76.6 % (50.0-75.0)
[2016-10-10 07:45] LABS: ALB/GLOB RATIO 0.8 (1.0-2.1); BILIRUBIN,TOTAL 0.3 mg/dl (0.2-1.3); CALCIUM 8.9 mg/dL (8.4-10.2); POTASSIUM 4.3 MMOL/L (3.6-5.0); TOTAL PROTEIN 6.1 G/DL (6.3-8.2)
[2016-10-10] MEDS: Enoxaparin 30 mg Syringe SC SCH (08:55)
[2016-10-10] MEDS: Digoxin 500 mcg/2ml (0.5 mg/2ml) Inj IVP SCH (08:57)
--- NOTE | 2016-10-10 12:51 | RAD ---
PROCEDURE: CHEST RADIOGRAPH, 1 VIEW HISTORY: rise in wbc COMPARISON: None available. FINDINGS: LUNGS: Persistent slight coarsened/ increased interstitial markings. . Rule out sequela of reactive and or inflammatory airway disease or viral illness. PLEURA: No pneumothorax or pleural fluid seen. CARDIOVASCULAR: Normal. OSSEOUS STRUCTURES: No significant abnormalities. VISUALIZED UPPER ABDOMEN: Normal. OTHER FINDINGS: None. IMPRESSION: Persistent slight coarsened/ increased interstitial markings. . Rule out sequela of reactive and or inflammatory airway disease or viral illness.
--- NOTE | 2016-10-10 15:28 | CP.PCM.PN ---
Subjective - Date & Time of Evaluation Date of Evaluation: 10/10/16 Time of Evaluation: 13:00 - Subjective Subjective: F/U Fall, Weakness. Pt awake, confused, no following commands, c/o of pain in R hip with movements, having regular sinus rhythms. Objective - Vital Signs/Intake and Output Vital Signs (last 24 hours): Temp Pulse Resp BP Pulse Ox 98.4 F 98 H 18 154/65 H 100 10/10/16 13:00 10/10/16 13:00 10/10/16 13:00 10/10/16 13:00 10/10/16 13:00 Intake and Output: 10/10/16 10/10/16 06:59 18:59 Intake Total 150 Output Total 800 Balance -650 - Medications Medications: Current Medications Acetaminophen (Tylenol 325mg Tab) 650 mg PO Q4 PRN PRN Reason: Pain, moderate (4-7) Digoxin (Lanoxin) 0.125 mg IVP DAILY [facility] Last Admin: 10/10/16 08:57 Dose: 0.125 mg Diltiazem HCl (Cardizem) 30 mg PO QID [facility] Last Admin: 10/10/16 08:53 Dose: 30 mg Vancomycin HCl 750 mg/ Sodium (Chloride) 250 mls @ 166.667 mls/hr IVPB DAILY [facility] Last Admin: 10/10/16 11:22 Dose: Not Given Insulin Human Regular (Humulin R) 0 units SC ACHS [facility] PRN Reason: Protocol Last Admin: 10/10/16 11:25 Dose: 3 unit - Labs Labs: 10/10/16 06:30 10/10/16 06:30 PT 13.2 Seconds (9.8-13.1) H 10/05/16 20:14 INR 1.2 (0.9-1.2) 10/05/16 20:14 APTT 27.6 Seconds (25.6-37.1) 10/05/16 20:14 - Constitutional Appears: No Acute Distress - Head Exam Head Exam: NORMAL INSPECTION - Eye Exam Eye Exam: PERRL - ENT Exam ENT Exam: Normal Oropharynx - Neck Exam Neck Exam: Normal Inspection - Respiratory Exam Respiratory Exam: NORMAL BREATHING PATTERN - Cardiovascular Exam Cardiovascular Exam: REGULAR RHYTHM - GI/Abdominal Exam GI & Abdominal Exam: Soft, Normal Bowel Sounds - Extremities Exam Additional comments: RLE with limited ROM 2nd topain, red circular area of redness on the R hip, Redness L heel, warm to touch, dry ulcer R foot. - Back Exam Additional comments: Redness in buttocks and Perineum. - Neurological Exam Neurological Exam: Awake Additional comments: Confused, do not follows commands, able to talk with single words, generalized weakness. - Psychiatric Exam Additional comments: Calm. - Skin Skin Exam: Warm Assessment and Plan (1) Falls Status: Acute (2) Dehydration Status: Acute (3) Bacteremia due to Gram-positive bacteria Status: Acute (4) Weakness Status: Chronic (5) Renal failure Status: Acute (6) Hyperglycemia Status: Acute (7) Diabetes mellitus type 2 in nonobese Status: Chronic (8) New onset a-fib Status: Acute (9) Hip pain Status: Chronic (10) HTN (hypertension) Status: Chronic (11) Gait difficulty Status: Chronic (12) Avascular necrosis of bone of right hip Status: Acute (13) Cellulitis of foot, right Status: Acute (14) Cellulitis of foot, right Status: Acute - Assessment and Plan (Free Text) Plan: MRI R Hip avascular necrosis , MRI R foot no Osteomyelitis, Patient on Vanco, Cardizem, Flagyl, add Tylenol add Tylenol, continue rest of Tx.
--- NOTE | 2016-10-10 16:02 | CP.PCM.PN ---
Subjective - Date & Time of Evaluation Date of Evaluation: 10/10/16 Time of Evaluation: 16:00 - Subjective Subjective: Confused No apparent distress Sinus with APCs Objective - Vital Signs/Intake and Output Vital Signs (last 24 hours): Temp Pulse Resp BP Pulse Ox 98.4 F 98 H 18 154/65 H 100 10/10/16 13:00 10/10/16 13:00 10/10/16 13:00 10/10/16 13:00 10/10/16 13:00 Intake and Output: 10/10/16 10/10/16 06:59 18:59 Intake Total 150 Output Total 800 Balance -650 - Medications Medications: Current Medications Acetaminophen (Tylenol 325mg Tab) 650 mg PO Q4 PRN PRN Reason: Pain, moderate (4-7) Digoxin (Lanoxin) 0.125 mg IVP DAILY [facility] Last Admin: 10/10/16 08:57 Dose: 0.125 mg Diltiazem HCl (Cardizem) 30 mg PO QID [facility] Last Admin: 10/10/16 08:53 Dose: 30 mg Vancomycin HCl 750 mg/ Sodium (Chloride) 250 mls @ 166.667 mls/hr IVPB DAILY [facility] Last Admin: 10/10/16 11:22 Dose: Not Given Insulin Human Regular (Humulin R) 0 units SC ACHS [facility] PRN Reason: Protocol Last Admin: 10/10/16 11:25 Dose: 3 unit - Labs Labs: 10/10/16 06:30 10/10/16 06:30 PT 13.2 Seconds (9.8-13.1) H 10/05/16 20:14 INR 1.2 (0.9-1.2) 10/05/16 20:14 APTT 27.6 Seconds (25.6-37.1) 10/05/16 20:14 - Constitutional Appears: Other - Eye Exam Eye Exam: Normal appearance - Neck Exam Neck Exam: Normal Inspection - Respiratory Exam Respiratory Exam: Decreased Breath Sounds - Cardiovascular Exam Cardiovascular Exam: REGULAR RHYTHM - GI/Abdominal Exam GI & Abdominal Exam: Soft - Extremities Exam Extremities Exam: Normal Inspection Assessment and Plan - Assessment and Plan (Free Text) Assessment: Prox A Fib Digoxin level 1.0 mg/dl E. Fecalis Bacteremia CKD AMS Plan: Plan: Cont. Diltiazem HCl (Cardizem) 30 mg PO QID [facility] Enoxaparin Sodium (Lovenox) 30 mg SC DAILY [facility] Vancomycin HCl 750 mg/ Sodium (Chloride) 250 mls @ 166.667 mls/hr IVPB DAILY [facility] change Digoxin (Lanoxin) 0.125 mg PO DAILY
[2016-10-11] MEDS: Insulin Regular 100 units/ml SC SCH ×4 (06:33→22:29)
[2016-10-11 09:20] LABS: HEMATOCRIT 26.1 % (35.0-51.0); MEAN CELL VOLUME 93.4 fl (80.0-94.0); MEAN CORPUSCULAR HEMOGLOBIN 30.6 pg (27.0-31.0); MEAN CORPUSCULAR HGB CONC 32.8 g/dL (33.0-37.0); RED CELL DISTRIBUTION WIDTH 14.9 % (11.5-14.5); WHITE BLOOD COUNT 13.8 K/uL (4.8-10.8)
[2016-10-11 09:47] LABS: CALCIUM 8.8 mg/dL (8.4-10.2); POTASSIUM 3.9 MMOL/L (3.6-5.0)
[2016-10-11] MEDS: Digoxin 125 mcg (0.125 mg) Tab PO SCH (09:57)
--- NOTE | 2016-10-11 10:02 | MRI ---
MRI right hip History: Infection. Evaluate for osteomyelitis. Comparison: Right hip CT and pelvis dated 10/05/2016 Technique: Multi-echo multiplanar sequences were performed through the pelvis and right hip without the use of intravenous contrast. Findings: Markedly limited study secondary to patient motion artifact. Right hip: Prominent signal abnormality seen at the right femoral head with serpiginous foci of decreased T1 signal and more centrally increased STIR signal consistent with severe avascular necrosis of the right femoral head. There appears to be cortical irregularity and flattening of the articular surface of the femoral head with subchondral flattening. Moderate right hip joint effusion. Superimposed acute infectious and or inflammatory changes cannot entirely be excluded. Prominent degenerative fraying and partial tearing of the right anterior acetabular labrum. Prominent cartilage loss overlying the right femoral head. Moderate insertional tendinopathy of the right iliopsoas tendon on the lesser trochanter. Rectus femoris and tendon origins are preserved. Partial tearing with prominent tendinopathy of the right gluteus tendons on the greater trochanter. Edema within the gluteus musculature. Small amount of fluid within right greater trochanteric bursa suggestive for a mild greater trochanteric bursitis. Triplett catheter in a thick-walled an underdistended urinary bladder. Clinical correlation. Limited evaluation of remainder of the bony pelvis and left hip demonstrates degenerative changes. Moderate narrowing at the left hip joint space with some cartilage thinning and loss. Moderate insertional tendinopathy of the left gluteus tendons at their attachment on the greater trochanter with a small amount of fluid in the greater trochanteric bursa. Reactive edema seen within the gluteus musculature bilaterally ; left greater than right. There may be some partial tearing and or myositis within the left gluteus musculature. Impression: 1. Prominent signal abnormality seen at the right femoral head with serpiginous foci of decreased T1 signal and more centrally increased STIR signal consistent with severe avascular necrosis of the right femoral head. There appears to be cortical irregularity and flattening of the articular surface of the femoral head with subchondral flattening. Moderate right hip joint effusion. Superimposed acute infectious and or inflammatory changes cannot entirely be excluded. 2. Prominent degenerative fraying and partial tearing of the right anterior acetabular labrum. 3. Prominent cartilage loss overlying the right femoral head. 4. Moderate insertional tendinopathy of the right iliopsoas tendon on the lesser trochanter. 5. Partial tearing with prominent tendinopathy of the right gluteus tendons on the greater trochanter. Edema within the gluteus musculature. 6. Small amount of fluid within right greater trochanteric bursa suggestive for a mild greater trochanteric bursitis. 7. Triplett catheter in a thick-walled an underdistended urinary bladder. Clinical correlation. 8. Limited evaluation of remainder of the bony pelvis and left hip demonstrates degenerative changes. 9. Moderate narrowing at the left hip joint space with some cartilage thinning and loss. 10. Moderate insertional tendinopathy of the left gluteus tendons at their attachment on the greater trochanter with a small amount of fluid in the greater trochanteric bursa. 11. Reactive edema seen within the gluteus musculature bilaterally ; left greater than right. There may be some partial tearing and or myositis within the left gluteus musculature. These findings were preliminarily reported at 3:05 p.m. on 10/09/[address] Stevo Pacheco from [facility].
--- NOTE | 2016-10-11 12:32 | US ---
PROCEDURE: Duplex ultrasound of the bilateral lower extremity arteries. Left HISTORY: r/o pad COMPARISON: None available. TECHNIQUE: Grayscale and duplex Doppler evaluation of the bilateral common femoral, superficial femoral, popliteal, posterior tibial and dorsalis pedis arteries was performed.. FINDINGS: RIGHT LOWER EXTREMITY: RIGHT COMMON FEMORAL ARTERY: Heterogeneous plaque formation partially calcified Maximal flow velocity of 166 cm/s. RIGHT SUPERFICIAL FEMORAL ARTERY: Widely patent. Maximal flow velocity of 58 cm/s. RIGHT POPLITEAL ARTERY:Widely patent. Maximal flow velocity of 51 cm/s. RIGHT POSTERIOR TIBIAL ARTERY: Widely patent. Maximal flow velocity of 70 cm/s. RIGHT DORSALIS PEDIS ARTERY: Widely patent. Maximal flow velocity of 72 cm/s. LEFT LOWER EXTREMITY: LEFT COMMON FEMORAL ARTERY: Widely patent. Maximal flow velocity of 129 cm/s. LEFT SUPERFICIAL FEMORAL ARTERY: Widely patent. Maximal flow velocity of 135 cm/s. LEFT POPLITEAL ARTERY:Atherosclerotic disease with focal stenosis mid left popliteal artery Maximal flow velocity of 249 cm/s. LEFT POSTERIOR TIBIAL ARTERY: Ulcerating plaque distal left dorsalis pedis artery Maximal flow velocity of 72 cm/s. LEFT DORSALIS PEDIS ARTERY: Widely patent. Maximal flow velocity of 107 cm/s. OTHER FINDINGS: None. IMPRESSION: Right lower extremity: Inflow disease, mild primarily affecting the right common femoral artery. Left lower extremity: Focal stenotic lesion left popliteal artery with significant stenosis than markedly elevated peak systolic velocity 20/40 9 centimeter/second. Although there is atherosclerotic disease distal to the stenosis flow was documented in both posterior tibial and left dorsalis pedis arteries.
--- NOTE | 2016-10-11 13:10 | CP.PCM.PCO ---
Physician Communication Note - Physician Communication Note Physician Communication Note: Unable to interview patient due to lethargy, will re-attempt tomorrow.
--- NOTE | 2016-10-11 13:12 | CP.PCM.PN ---
Subjective - Date & Time of Evaluation Date of Evaluation: 10/11/16 Time of Evaluation: 13:10 - Subjective Subjective: confused No apparent distress sinus with APCs Objective - Vital Signs/Intake and Output Vital Signs (last 24 hours): Temp Pulse Resp BP Pulse Ox 98.5 F 91 H 18 152/71 H 100 10/11/16 12:45 10/11/16 12:45 10/11/16 12:45 10/11/16 12:45 10/11/16 12:45 Intake and Output: 10/11/16 10/11/16 06:59 18:59 Output Total 900 Balance -900 - Medications Medications: Current Medications Acetaminophen (Tylenol 325mg Tab) 650 mg PO Q4 PRN PRN Reason: Pain, moderate (4-7) Digoxin (Lanoxin) 0.125 mg PO DAILY [facility] Last Admin: 10/11/16 09:57 Dose: 0.125 mg Diltiazem HCl (Cardizem) 30 mg PO QID [facility] Last Admin: 10/11/16 09:56 Dose: 30 mg Vancomycin HCl 750 mg/ Sodium (Chloride) 250 mls @ 166.667 mls/hr IVPB DAILY [facility] Last Admin: 10/11/16 09:57 Dose: 166.667 mls/hr Insulin Human Regular (Humulin R) 0 units SC ACHS [facility] PRN Reason: Protocol Last Admin: 10/11/16 06:33 Dose: 1 unit Metronidazole (Flagyl) 500 mg PO Q8 [facility] Last Admin: 10/11/16 09:57 Dose: 500 mg - Labs Labs: 10/11/16 09:00 10/11/16 09:00 PT 13.2 Seconds (9.8-13.1) H 10/05/16 20:14 INR 1.2 (0.9-1.2) 10/05/16 20:14 APTT 27.6 Seconds (25.6-37.1) 10/05/16 20:14 - Constitutional Appears: Toxic - Head Exam Head Exam: NORMAL INSPECTION - Eye Exam Eye Exam: Normal appearance - Neck Exam Neck Exam: Normal Inspection - Respiratory Exam Respiratory Exam: Rhonchi - Cardiovascular Exam Cardiovascular Exam: REGULAR RHYTHM - Extremities Exam Extremities Exam: Normal Inspection Assessment and Plan - Assessment and Plan (Free Text) Assessment: Prox A Fib E. Fecalis Bacteremia CKD AMS Anemia Plan: Cont. Diltiazem HCl (Cardizem) 30 mg PO QID [facility] Enoxaparin Sodium (Lovenox) 30 mg SC DAILY [facility] Vancomycin HCl 750 mg/ Sodium (Chloride) 250 mls @ 166.667 mls/hr IVPB DAILY [facility] Digoxin (Lanoxin) 0.125 mg PO DAILY
--- NOTE | 2016-10-11 13:43 | CP.PCM.PN ---
Subjective - Date & Time of Evaluation Date of Evaluation: 10/11/16 Time of Evaluation: 13:42 - Subjective Subjective: ID Note- Pt. seen and examined today. No new events except positive c.diff antigen test . as per nurse no BM today but apparently yesterday pt. had loose stools. Objective - Vital Signs/Intake and Output Vital Signs (last 24 hours): Temp Pulse Resp BP Pulse Ox 98.5 F 91 H 18 152/71 H 100 10/11/16 12:45 10/11/16 13:24 10/11/16 13:24 10/11/16 13:24 10/11/16 13:24 Intake and Output: 10/11/16 10/11/16 06:59 18:59 Output Total 900 Balance -900 - Medications Medications: Current Medications Acetaminophen (Tylenol 325mg Tab) 650 mg PO Q4 PRN PRN Reason: Pain, moderate (4-7) Digoxin (Lanoxin) 0.125 mg PO DAILY [facility] Last Admin: 10/11/16 09:57 Dose: 0.125 mg Diltiazem HCl (Cardizem) 30 mg PO QID [facility] Last Admin: 10/11/16 13:24 Dose: 30 mg Vancomycin HCl 750 mg/ Sodium (Chloride) 250 mls @ 166.667 mls/hr IVPB DAILY [facility] Last Admin: 10/11/16 09:57 Dose: 166.667 mls/hr Insulin Human Regular (Humulin R) 0 units SC ACHS [facility] PRN Reason: Protocol Last Admin: 10/11/16 12:30 Dose: 3 unit Metronidazole (Flagyl) 500 mg PO Q8 [facility] Last Admin: 10/11/16 09:57 Dose: 500 mg - Labs Labs: - Additional Findings Additional findings: - Constitutional Appears: No Acute Distress - Head Exam Head Exam: ATRAUMATIC - Eye Exam Eye Exam: PERRL - ENT Exam ENT Exam: Normal Oropharynx - Neck Exam Neck exam: Positive for: Full Rom - Respiratory Exam Respiratory Exam: NORMAL BREATHING PATTERN Additional comments: good breath sounds b/l no wheezing slightly decreased at left base - Cardiovascular Exam Cardiovascular Exam: RRR, +S1, +S2 - GI/Abdominal Exam GI & Abdominal Exam: Normal Bowel Sounds, Soft Additional comments: NT, ND No guarding, No rebound - Extremities Exam Additional comments: no edema B/l LE Right lateral foot small round dry ulcer , no active d/c this is in region where pt. has had prior amputation - Neurological Exam Neurological exam: Alert, Oriented x 3 Laboratory Results - last 72 hr 10/08/16 10/08/16 10/09/16 16:32 21:03 05:23 WBC RBC Hgb Hct MCV MCH MCHC RDW Plt Count MPV Neut % (Auto) Lymph % (Auto) Brantley % (Auto) Eos % (Auto) Baso % (Auto) Neut # Lymph # Brantley # Eos # Baso # Sodium Potassium Chloride Carbon Dioxide Anion Gap BUN Creatinine Est GFR ( Amer) Est GFR (Non-Af Amer) POC Glucose (mg/dL) 316 H 336 H 226 H Random Glucose Calcium Total Bilirubin AST ALT Alkaline Phosphatase Total Protein Albumin Globulin Albumin/Globulin Ratio Ur Random Sodium Ur Random Potassium Vancomycin Trough Digoxin C. difficile Ag & Toxin 10/09/16 10/09/16 10/09/16 06:30 06:30 11:27 WBC 12.2 H RBC 2.83 L Hgb 8.6 L Hct 27.1 L MCV 96.1 H MCH 30.3 MCHC 31.5 L RDW 15.2 H Plt Count 136 MPV Neut % (Auto) Lymph % (Auto) Brantley % (Auto) Eos % (Auto) Baso % (Auto) Neut # Lymph # Brantley # Eos # Baso # Sodium 144 Potassium 4.3 Chloride 118 H Carbon Dioxide 17 L Anion Gap 13 BUN 47 H Creatinine 2.2 H Est GFR ( Amer) 36 Est GFR (Non-Af Amer) 30 POC Glucose (mg/dL) 303 H Random Glucose 227 H Calcium 8.5 Total Bilirubin AST ALT Alkaline Phosphatase Total Protein Albumin Globulin Albumin/Globulin Ratio Ur Random Sodium Ur Random Potassium Vancomycin Trough Digoxin C. difficile Ag & Toxin 10/09/16 10/09/16 10/10/16 16:10 21:04 05:26 WBC RBC Hgb Hct MCV MCH MCHC RDW Plt Count MPV Neut % (Auto) Lymph % (Auto) Brantley % (Auto) Eos % (Auto) Baso % (Auto) Neut # Lymph # Brantley # Eos # Baso # Sodium Potassium Chloride Carbon Dioxide Anion Gap BUN Creatinine Est GFR ( Amer) Est GFR (Non-Af Amer) POC Glucose (mg/dL) 177 H 245 H 164 H Random Glucose Calcium Total Bilirubin AST ALT Alkaline Phosphatase Total Protein Albumin Globulin Albumin/Globulin Ratio Ur Random Sodium Ur Random Potassium Vancomycin Trough Digoxin C. difficile Ag & Toxin 10/10/16 10/10/16 10/10/16 06:30 06:30 06:30 WBC 14.0 H RBC 2.90 L Hgb 8.8 L Hct 27.6 L MCV 95.3 H MCH 30.3 MCHC 31.8 L RDW 15.0 H Plt Count 168 MPV 10.2 Neut % (Auto) 76.6 H Lymph % (Auto) 11.8 L Brantley % (Auto) 7.8 Eos % (Auto) 3.2 Baso % (Auto) 0.6 Neut # 10.7 H Lymph # 1.7 Brantley # 1.1 H Eos # 0.4 Baso # 0.1 Sodium 144 Potassium 4.3 Chloride 116 H Carbon Dioxide 18 L Anion Gap 14 BUN 44 H Creatinine 2.2 H Est GFR ( Amer) 36 Est GFR (Non-Af Amer) 30 POC Glucose (mg/dL) Random Glucose 156 H Calcium 8.9 Total Bilirubin 0.3 AST 31 ALT 34 Alkaline Phosphatase 134 H D Total Protein 6.1 L Albumin 2.7 L Globulin 3.4 Albumin/Globulin Ratio 0.8 L Ur Random Sodium Ur Random Potassium Vancomycin Trough 17.8 H Digoxin 1.0 C. difficile Ag & Toxin 10/10/16 10/10/16 10/10/16 11:05 12:48 15:00 WBC RBC Hgb Hct MCV MCH MCHC RDW Plt Count MPV Neut % (Auto) Lymph % (Auto) Brantley % (Auto) Eos % (Auto) Baso % (Auto) Neut # Lymph # Brantley # Eos # Baso # Sodium Potassium Chloride Carbon Dioxide Anion Gap BUN Creatinine Est GFR ( Amer) Est GFR (Non-Af Amer) POC Glucose (mg/dL) 299 H Random Glucose Calcium Total Bilirubin AST ALT Alkaline Phosphatase Total Protein Albumin Globulin Albumin/Globulin Ratio Ur Random Sodium 101 Ur Random Potassium 17.5 Vancomycin Trough Digoxin C. difficile Ag & Toxin Positive antigen 10/10/16 10/10/16 10/11/16 16:16 22:38 05:39 WBC RBC Hgb Hct MCV MCH MCHC RDW Plt Count MPV Neut % (Auto) Lymph % (Auto) Brantley % (Auto) Eos % (Auto) Baso % (Auto) Neut # Lymph # Brantley # Eos # Baso # Sodium Potassium Chloride Carbon Dioxide Anion Gap BUN Creatinine Est GFR ( Amer) Est GFR (Non-Af Amer) POC Glucose (mg/dL) 297 H 215 H 176 H Random Glucose Calcium Total Bilirubin AST ALT Alkaline Phosphatase Total Protein Albumin Globulin Albumin/Globulin Ratio Ur Random Sodium Ur Random Potassium Vancomycin Trough Digoxin C. difficile Ag & Toxin 10/11/16 10/11/16 10/11/16 09:00 09:00 11:40 WBC 13.8 H RBC 2.80 L Hgb 8.6 L Hct 26.1 L MCV 93.4 MCH 30.6 MCHC 32.8 L RDW 14.9 H Plt Count 188 MPV Neut % (Auto) Lymph % (Auto) Brantley % (Auto) Eos % (Auto) Baso % (Auto) Neut # Lymph # Brantley # Eos # Baso # Sodium 140 Potassium 3.9 Chloride 113 H Carbon Dioxide 17 L Anion Gap 14 BUN 40 H Creatinine 2.1 H Est GFR ( Amer) 38 Est GFR (Non-Af Amer) 31 POC Glucose (mg/dL) 297 H Random Glucose 143 H Calcium 8.8 Total Bilirubin AST ALT Alkaline Phosphatase Total Protein Albumin Globulin Albumin/Globulin Ratio Ur Random Sodium Ur Random Potassium Vancomycin Trough Digoxin C. difficile Ag & Toxin Microbiology 10/06/16 13:10 Blood Blood Culture - Final NO GROWTH AFTER 5 DAYS 10/06/16 13:10 Blood Gram Stain - Final TEST NOT PERFORMED 10/09/16 16:45 Blood-Venous Blood Culture - Preliminary NO GROWTH AFTER 24 HOURS 10/05/16 18:49 Blood S.aureus & Coag-Neg Staph PNA FISH - Final 10/05/16 18:49 Blood Blood Culture - Final Enterococcus Faecalis 10/05/16 18:49 Blood Gram Stain - Final 10/05/16 19:09 Urine,Triplett Urine Culture - Final No Growth (<1,000 CFU/ML) Accession No. : [id number] Patient Name / ID : GRACE ANTON / [id number] Exam Date : 10/09/2016 19:37:36 ( Approved ) Study Comment : Sex / Age : M / [id number] Creator : Manfred Strickland MD Dictator : Manfred Strickland MD Binder And Wrapper Packer : Room Clerk : Manfred Strickland MD Approver2 : Report Date : 10/10/2016 12:45:46 My Comment : PROCEDURE: CHEST RADIOGRAPH, 1 VIEW HISTORY: rise in wbc COMPARISON: None available. FINDINGS: LUNGS: Persistent slight coarsened/ increased interstitial markings. . Rule out sequela of reactive and or inflammatory airway disease or viral illness. PLEURA: No pneumothorax or pleural fluid seen. CARDIOVASCULAR: Normal. OSSEOUS STRUCTURES: No significant abnormalities. VISUALIZED UPPER ABDOMEN: Normal. OTHER FINDINGS: None. IMPRESSION: Persistent slight coarsened/ increased interstitial markings. . Rule out sequela of reactive and or inflammatory airway disease or viral illness. Assessment and Plan (1) Renal insufficiency Status: Deleted (2) Weakness Status: Chronic (3) Diabetes Status: Acute (4) Bacteremia due to Gram-positive bacteria Status: Acute - Assessment and Plan (Free Text) Assessment: A/P- 71 year old amle with h/o DM ii, HTN s/p fall and found to have GPC in prelim blood cx. remains febrile slight decrease in leukocytosis today. admission blood cx- e.fecalis. urine cx- neg repeat blood cx from 10/06- negative x 2 High ESR Echo- no vegetations as per senior project engineer's report. stool c.diff AG/Toxin- positive LE MRI report noted await foot MRI report. plan- continue with IV vanco, renal dose. day #6 today was held yesterday. keep trough <20. continue with oral metronidazole for c.diff, day #2 today. check 2 more stool c.diff. await foot MRI result. avascular femoral head necrosis as per MRI report to be eval by ortho .
[2016-10-11] MEDS: Lidocaine 5% Patch TD SCH (15:28)
--- NOTE | 2016-10-11 15:47 | CP.PCM.PN ---
Subjective - Date & Time of Evaluation Date of Evaluation: 10/11/16 Time of Evaluation: 10:30 - Subjective Subjective: F/U Fall. Weakness Pt awake, confused, pain upon movements reported by nurses in the R hip. Objective - Vital Signs/Intake and Output Vital Signs (last 24 hours): Temp Pulse Resp BP Pulse Ox 98.3 F 82 20 122/64 98 10/11/16 15:38 10/11/16 15:38 10/11/16 15:38 10/11/16 15:38 10/11/16 15:38 Intake and Output: 10/11/16 10/11/16 06:59 18:59 Output Total 900 Balance -900 - Medications Medications: Current Medications Acetaminophen (Tylenol 325mg Tab) 650 mg PO Q4 PRN PRN Reason: Pain, moderate (4-7) Digoxin (Lanoxin) 0.125 mg PO DAILY [facility] Last Admin: 10/11/16 09:57 Dose: 0.125 mg Diltiazem HCl (Cardizem) 30 mg PO QID [facility] Last Admin: 10/11/16 13:24 Dose: 30 mg Vancomycin HCl 750 mg/ Sodium (Chloride) 250 mls @ 166.667 mls/hr IVPB DAILY [facility] Last Admin: 10/11/16 09:57 Dose: 166.667 mls/hr Insulin Human Regular (Humulin R) 0 units SC ACHS [facility] PRN Reason: Protocol Last Admin: 10/11/16 12:30 Dose: 3 unit Lidocaine (Lidoderm) 1 ea TD DAILY [facility] Last Admin: 10/11/16 15:28 Dose: 1 ea Metronidazole (Flagyl) 500 mg PO Q8 [facility] Last Admin: 10/11/16 09:57 Dose: 500 mg - Labs Labs: 10/11/16 09:00 10/11/16 09:00 PT 13.2 Seconds (9.8-13.1) H 10/05/16 20:14 INR 1.2 (0.9-1.2) 10/05/16 20:14 APTT 27.6 Seconds (25.6-37.1) 10/05/16 20:14 - Constitutional Appears: No Acute Distress - Head Exam Head Exam: NORMAL INSPECTION - Eye Exam Eye Exam: PERRL - ENT Exam ENT Exam: Normal Oropharynx - Neck Exam Neck Exam: Normal Inspection - Respiratory Exam Respiratory Exam: NORMAL BREATHING PATTERN - Cardiovascular Exam Cardiovascular Exam: REGULAR RHYTHM - GI/Abdominal Exam GI & Abdominal Exam: Soft, Normal Bowel Sounds - Extremities Exam Additional comments: RLE with limited ROM 2nd to pain, Red circular area on R hip, Redness L heel, warm to touch, dry ulcer R foot. - Back Exam Additional comments: Redness in buttocks and Perineum improving. - Neurological Exam Neurological Exam: Awake Additional comments: Copnfused, do not follows commands, able to talk with singles words, generalized weakness. - Psychiatric Exam Additional comments: Calm - Skin Skin Exam: Warm Assessment and Plan (1) Falls Status: Acute (2) Dehydration Status: Acute (3) Bacteremia due to Gram-positive bacteria Status: Acute (4) Weakness Status: Chronic (5) Renal failure Status: Acute (6) Hyperglycemia Status: Acute (7) Diabetes mellitus type 2 in nonobese Status: Chronic (8) New onset a-fib Status: Acute (9) Hip pain Status: Chronic (10) HTN (hypertension) Status: Chronic (11) Gait difficulty Status: Chronic (12) Avascular necrosis of bone of right hip Status: Acute (13) C. difficile colitis Status: Acute - Assessment and Plan (Free Text) Plan: Continue Vanco, Flagyl, Cardizem and rest of Tx.
--- NOTE | 2016-10-11 16:04 | MRI ---
MRI right forefoot History: Infection. Evaluate for osteomyelitis. Comparison: MRI dated 04/11/2015 Technique: Multi-echo multiplanar sequences were performed through the right forefoot without the use of intravenous contrast. Findings: Limited study secondary to prominent patient motion artifact. Swelling and stranding in the dorsal subcutaneous soft tissues may represent an underlying cellulitis. Clinical correlation. Mild hallux valgus deformity. Mild reactive edema seen at the head of the 1st metatarsal bone. Mild fraying with increased signal seen within the Lisfranc ligament suggestive for a low-grade sprain. Status post resection of the 3rd digit to the level of the metatarsal head. Minimal patchy nonspecific reactive edema seen at the head of the 5th proximal phalanx. Degenerative changes with reactive edema seen at the base of the 2nd metatarsal bone at its articulation with the middle cuneiform bone. Patchy signal abnormality with patchy decreased T1 signal and increased STIR signal seen at the lateral articulation of the calcaneus and cuboid bone with subchondral cyst formation suggestive for prominent osteochondral change. Impression: Limited study secondary to prominent patient motion artifact. 1. Swelling and stranding in the dorsal subcutaneous soft tissues may represent an underlying cellulitis. Clinical correlation. 2. Mild hallux valgus deformity. Mild reactive edema seen at the head of the 1st metatarsal bone. 3. Mild fraying with increased signal seen within the Lisfranc ligament suggestive for a low-grade sprain. 4. Status post resection of the 3rd digit to the level of the metatarsal head. 5. Minimal patchy nonspecific reactive edema seen at the head of the 5th proximal phalanx. 6. Degenerative changes with reactive edema seen at the base of the 2nd metatarsal bone at its articulation with the middle cuneiform bone. 7. Patchy signal abnormality with patchy decreased T1 signal and increased STIR signal seen at the lateral articulation of the calcaneus and cuboid bone with subchondral cyst formation suggestive for prominent osteochondral change. These findings were preliminarily reported at 1:05 p.m. on 10/11/[address] Heri Cantu from [facility].
[2016-10-12] MEDS: Insulin Regular 100 units/ml SC SCH ×4 (06:47→21:52)
[2016-10-12 07:08] LABS: HEMATOCRIT 27.3 % (35.0-51.0); MEAN CORPUSCULAR HEMOGLOBIN 30.3 pg (27.0-31.0); MEAN CORPUSCULAR HGB CONC 31.9 g/dL (33.0-37.0); RED CELL DISTRIBUTION WIDTH 14.8 % (11.5-14.5); WHITE BLOOD COUNT 15.5 K/uL (4.8-10.8)
[2016-10-12 07:22] LABS: CALCIUM 8.7 mg/dL (8.4-10.2); POTASSIUM 4.1 MMOL/L (3.6-5.0)
[2016-10-12] MEDS: Lidocaine 5% Patch TD SCH (10:00)
[2016-10-12] MEDS: Digoxin 125 mcg (0.125 mg) Tab PO SCH (10:00)
--- NOTE | 2016-10-12 11:12 | CP.PCM.CON ---
History of Present Illness - History of Present Illness History of Present Illness: I was asked to evaluate patient for PAD. Patient is a 71 year old male with PMH HTN, hypercholesterolemia and atrial fibrillation who was initially admitted after a fall. The patient is a poor historian and all information is obtained from the medical record. The patient has avascular necrosis of the right hip. he is being followed by cardiology for management of atrial fibrillation. He is also followed by ID for bacteremia. Arterial duplex was performed revealing focal L popliteal artery stenosis. The patient offers no complaint of pain of the L leg or foot. Review of Systems - Review of Systems Systems not reviewed;Unavailable: Dementia - Cardiovascular Cardiovascular: absent: As Per HPI, Acrocyanosis, Chest Pain, Chest Pain at Rest , Chest Pain with Activity, Claudication, Diaphoresis, Dyspnea, Dyspnea on Exertion, Edema, Irregular Heart Rhythm, Pain Radiating to Arm/Neck/Jaw, Leg Edema, Leg Ulcers, Lightheadedness, Orthopnea, Palpitations, Paroxysmal Nocturnal Dyspnea, Pedal Edema, Radiating Pain, Rapid Heart Rate, Slow Heart Rate, Syncope, Other - Respiratory Respiratory: absent: As Per HPI, Cough, Dyspnea, Hemoptysis, Dyspnea on Exertion , Wheezing, Snoring, Stridor, Pain on Inspiration, Chest Congestion, Excessive Mucous Production, Change in Mucous Color, Pain with Coughing, Other - Gastrointestinal Gastrointestinal: absent: As Per HPI, Abdominal Pain, Belching, Bloating, Change in Bowel Habits, Change in Stool Character, Coffee Ground Emesis, Constipation, Cramping, Diarrhea, Dyspepsia, Dysphagia, Early Satiety, Excessive Flatus, Fecal Incontinence, Heartburn, Hematemesis, Hematochezia, Loose Stools, Melena, Nausea, Odynophagia, Temesmus, Vomiting, Other - Genitourinary Genitourinary: absent: As Per HPI, Change in Urinary Stream, Difficulty Urinating, Dysuria, Flank Pain, Hematuria, Pyuria, Nocturia, Urinary Incontinence, Urinary Frequency, Urinary Hesitance, Urinary Urgency, Voiding Freq/Small Amts, Freq UTI, Hx Renal/Bladder Calculi, Hx /Renal Surgery, Bladder Distension, Other - Musculoskeletal Musculoskeletal: absent: As Per HPI, Abnormal Gait, Arthralgias, Atrophy, Back Pain, Deformity, Joint Swelling, Limited Range of Motion, Loss of Height, Muscle Cramps, Muscle Weakness, Myalgias, Neck Pain, Numbness, Radiating Pain into Limb, Stiffness, Tingling, Other - Integumentary Integumentary: absent: As Per HPI, Acne, Alopecia, Bleeding Lesions, Change in Hair, Change in Nails, Change in Pigmentation, Changing Lesions, Dry Skin, Erythema, Furuncle, Hirsutism, Lesions, New Lesions, Non-Healing Lesions, Photosensitivity, Pruritus, Rash, Skin Pain, Skin Ulcer, Sores, Striae, Swelling , Unusual Bruising, Wounds, Jaundice, Other - Neurological Neurological: absent: As Per HPI, Abnormal Gait, Abnormal Hearing, Abnormal Movements, Abnormal Speech, Behavioral Changes, Burning Sensations, Confusion, Convulsions, Disequilibrium, Dizziness, Numbness, Focal Weakness, Frequent Falls , Headaches, Lack of Coordination, Loss of Vision, Memory Loss, Paresthesias, Radicular Pain, Restless Legs, Sensory Deficit, Syncope, Tingling, Tremor, Vertigo, Weakness, Other Visual Disturbances, Other - Psychiatric Psychiatric: absent: As Per HPI, Abnormal Sleep Pattern, Anhedonia, Anxiety, Auditory Hallucinations, Behavioral Changes, Change in Appetite, Change in Libido, Confusion, Depression, Difficulty Concentrating, Hallucinations, Homicidal Ideation, Hopelessness, Irritability, Memory Loss, Mood Swings, Panic Attacks, Paranoia, Suicidal Ideation, Visual Hallucinations, Tactile Hallucinations, Other - Endocrine Endocrine: absent: As Per HPI, Change in Body Appearance, Change in Libido, Cold Intolorance, Deepening of Voice, Excessive Sweating, Fatigue, Flushing, Heat Intolorance, Increase in Ring/Shoe/Hat Size, Palpitations, Polydipsia, Polyphagia, Polyuria, Other - Hematologic/Lymphatic Hematologic: absent: As Per HPI, Easy Bleeding, Easy Bruising, Lymphadenopathy, Other Past Patient History - Past Medical History & Family History Past Medical History?: Yes - Past Social History Smoking Status: Light Smoker < 10 Cigarettes Daily Alcohol: Occasional Home Situation {Lives}: With Family - CARDIAC Hx Cardiac Disorders: Yes Hx Hypercholesterolemia: Yes Hx Hypertension: Yes - PULMONARY Hx Respiratory Disorders: No - NEUROLOGICAL Hx Neurological Disorder: No - HEENT Hx HEENT Problems: No - RENAL Hx Chronic Kidney Disease: Yes Other/Comment: Renal Insufficiency. - ENDOCRINE/METABOLIC Hx Endocrine Disorders: Yes Hx Diabetes Mellitus Type 2: Yes - HEMATOLOGICAL/ONCOLOGICAL Hx Blood Disorders: Yes Hx Anemia: Yes - INTEGUMENTARY Hx Dermatological Problems: No - MUSCULOSKELETAL/RHEUMATOLOGICAL Hx Musculoskeletal Disorders: Yes (R hip pain) Hx Falls: Yes Hx Osteomyelitis: Yes (R foot) Hx Unsteady Gait: Yes - GASTROINTESTINAL Hx Gastrointestinal Disorders: No - GENITOURINARY/GYNECOLOGICAL Hx Genitourinary Disorders: Yes Hx Urinary Tract Infection: Yes - PSYCHIATRIC Hx Psychophysiologic Disorder: No - SURGICAL HISTORY Hx Surgeries: No - ANESTHESIA Hx Anesthesia: No Hx Anesthesia Reactions: No Hx Malignant Hyperthermia: No Meds Allergies/Adverse Reactions: Allergies Allergy/AdvReac Type Severity Reaction Status Date / Time No Known Allergies Allergy Verified 10/05/16 16:18 - Medications Medications: Current Medications Acetaminophen (Tylenol 325mg Tab) 650 mg PO Q4 PRN PRN Reason: Pain, moderate (4-7) Digoxin (Lanoxin) 0.125 mg PO DAILY [facility] Last Admin: 10/12/16 10:00 Dose: 0.125 mg Diltiazem HCl (Cardizem) 30 mg PO QID [facility] Last Admin: 10/12/16 09:59 Dose: 30 mg Vancomycin HCl 750 mg/ Sodium (Chloride) 250 mls @ 166.667 mls/hr IVPB DAILY [facility] Last Admin: 10/12/16 10:16 Dose: Not Given Insulin Human Regular (Humulin R) 0 units SC ACHS [facility] PRN Reason: Protocol Last Admin: 10/12/16 06:47 Dose: 1 unit Lidocaine (Lidoderm) 1 ea TD DAILY [facility] Last Admin: 10/12/16 10:00 Dose: 1 ea Metronidazole (Flagyl) 500 mg PO Q8 [facility] Last Admin: 10/12/16 09:59 Dose: 500 mg Physical Exam - Constitutional Appears: Non-toxic - Head Exam Head Exam: NORMAL INSPECTION - Eye Exam Eye Exam: Normal appearance - ENT Exam ENT Exam: Mucous Membranes Moist - Neck Exam Neck exam: Positive for: Full Rom - Respiratory Exam Respiratory Exam: NORMAL BREATHING PATTERN - Cardiovascular Exam Cardiovascular Exam: REGULAR RHYTHM - GI/Abdominal Exam GI & Abdominal Exam: Normal Bowel Sounds - Rectal Exam Rectal Exam: Deferred - Extremities Exam Extremities exam: Negative for: tenderness - Neurological Exam Neurological exam: Alert - Psychiatric Exam Psychiatric exam: Normal Mood - Skin Skin Exam: Dry Results - Vital Signs Recent Vital Signs: Last Vital Signs Temp 97.9 F 10/12/16 08:25 Pulse 87 10/12/16 09:59 Resp 18 10/12/16 09:59 BP 128/72 10/12/16 09:59 Pulse Ox 96 10/12/16 09:59 - Labs Result Diagrams: 10/12/16 05:00 10/12/16 05:00 Labs: Laboratory Results - last 24 hr 10/11/16 10/11/16 10/11/16 11:40 16:26 21:08 WBC RBC Hgb Hct MCV MCH MCHC RDW Plt Count Sodium Potassium Chloride Carbon Dioxide Anion Gap BUN Creatinine Est GFR ( Amer) Est GFR (Non-Af Amer) POC Glucose (mg/dL) 297 H 122 H 160 H Random Glucose Calcium 10/12/16 10/12/16 10/12/16 05:00 05:00 05:33 WBC 15.5 H RBC 2.88 L Hgb 8.7 L Hct 27.3 L MCV 95.0 H MCH 30.3 MCHC 31.9 L RDW 14.8 H Plt Count 195 Sodium 141 Potassium 4.1 Chloride 114 H Carbon Dioxide 15 L Anion Gap 16 BUN 41 H Creatinine 2.2 H Est GFR ( Amer) 36 Est GFR (Non-Af Amer) 30 POC Glucose (mg/dL) 169 H Random Glucose 162 H Calcium 8.7 - EKG Data EKG Interpreted by: Myself EKG shows normal: Sinus rhythm Assessment & Plan (1) PAD (peripheral artery disease) Assessment and Plan: patient has a finding of popliteal artery stenosis. There are no signs of limb ischemia. given dementia renal failure and other comorbidities, I recommend conservative therapy. Status: Acute
--- NOTE | 2016-10-12 12:08 | CP.PCM.CON ---
History of Present Illness - History of Present Illness History of Present Illness: Psychiatry Consult The patient is a poor historian and all information is obtained from the medical record. CC: "I'm okay" HPI: 71 y/o male with PMHx of Falls, Osteomyelitis, Renal insufficiency, DM II, DM Neuropathy, HTN, Hyperlipidemia, Anemia, alcohol abuse, initially admitted s/ p fall. The patient has avascular necrosis of the right hip. He denies feeling anxious/depression. No psychosis/paranoia. He is only oriented to self. PPHx: No known history of hospitalizations or psychiatric tx. 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 States he has two children. MSE: A + O x 1. Good eye contact, alert. Mood Okay, affect- constricted/ calm. Thought process- Loose, thought content- no delusions. NO hallucinations. Poor insight/judgment. Impression: 71 yo male with PMHx of Falls, Osteomyelitis, Renal insufficiency, DM II, DM Neuropathy, HTN, Hyperlipidemia, Anemia, alcohol abuse, initially admitted s/p fall now w/ avascular necrosis of the right hip. Patient is alert but only oriented to self. He seems to have periods of delirium and likely has underlying dementia, but machine sign writer unable to fully assess at this time. It is unclear how capable the patient is able to take care of himself alone. He can not explain to the machine sign writer why he is in the hospital or why he needs treatment. -No psychiatric admission indicated at this time -No psychotropic medications indicated at this time -Patient may benefit from psychological testing (Psychology Consult- Dr. Landon ) to determine his level of dementia once his acute medical issues/delirium resolve -Avoid benzodiazepines, including Ativan and Xanax, as these can make the elderly more agitated, confused and increase risk of falls. -If patient experiences "sun-downing" or late day confusion: Late-day confusion is best treated with non-pharmacological interventions such as: 1. Staff redirection and orientation in the evening 2. Supporting good sleep environment such as comfortable bed, dark room (can have mild night light) 3. Increased activity during the day 4. Bringing familiar objects from home can help orient the patient. 5. Exposure to natural sunlight in the day. -*If patient becomes acutely aggressive or agitated, can give Risperidone 0.5 mg PO Q5PM or QHS. Medication should be given 1-2 hours prior to the time the patient normally "sun-downs." Risperidone is available in regular tablet or dissolvable M-tablet, would recommend 0.5 mg M-tablet to make sure the patient takes the medication. Past Patient History - Past Medical History & Family History Past Medical History?: Yes - Past Social History Smoking Status: Light Smoker < 10 Cigarettes Daily Alcohol: Occasional Home Situation {Lives}: With Family - CARDIAC Hx Cardiac Disorders: Yes Hx Hypercholesterolemia: Yes Hx Hypertension: Yes - PULMONARY Hx Respiratory Disorders: No - NEUROLOGICAL Hx Neurological Disorder: No - HEENT Hx HEENT Problems: No - RENAL Hx Chronic Kidney Disease: Yes Other/Comment: Renal Insufficiency. - ENDOCRINE/METABOLIC Hx Endocrine Disorders: Yes Hx Diabetes Mellitus Type 2: Yes - HEMATOLOGICAL/ONCOLOGICAL Hx Blood Disorders: Yes Hx Anemia: Yes - INTEGUMENTARY Hx Dermatological Problems: No - MUSCULOSKELETAL/RHEUMATOLOGICAL Hx Musculoskeletal Disorders: Yes (R hip pain) Hx Falls: Yes Hx Osteomyelitis: Yes (R foot) Hx Unsteady Gait: Yes - GASTROINTESTINAL Hx Gastrointestinal Disorders: No - GENITOURINARY/GYNECOLOGICAL Hx Genitourinary Disorders: Yes Hx Urinary Tract Infection: Yes - PSYCHIATRIC Hx Psychophysiologic Disorder: No - SURGICAL HISTORY Hx Surgeries: No - ANESTHESIA Hx Anesthesia: No Hx Anesthesia Reactions: No Hx Malignant Hyperthermia: No Meds Allergies/Adverse Reactions: Allergies Allergy/AdvReac Type Severity Reaction Status Date / Time No Known Allergies Allergy Verified 10/05/16 16:18 - Medications Medications: Current Medications Acetaminophen (Tylenol 325mg Tab) 650 mg PO Q4 PRN PRN Reason: Pain, moderate (4-7) Digoxin (Lanoxin) 0.125 mg PO DAILY [facility] Last Admin: 10/12/16 10:00 Dose: 0.125 mg Diltiazem HCl (Cardizem) 30 mg PO QID [facility] Last Admin: 10/12/16 09:59 Dose: 30 mg Vancomycin HCl 750 mg/ Sodium (Chloride) 250 mls @ 166.667 mls/hr IVPB DAILY [facility] Last Admin: 10/12/16 10:16 Dose: Not Given Insulin Human Regular (Humulin R) 0 units SC ACHS [facility] PRN Reason: Protocol Last Admin: 10/12/16 06:47 Dose: 1 unit Lidocaine (Lidoderm) 1 ea TD DAILY [facility] Last Admin: 10/12/16 10:00 Dose: 1 ea Metronidazole (Flagyl) 500 mg PO Q8 [facility] Last Admin: 10/12/16 09:59 Dose: 500 mg Results - Vital Signs Recent Vital Signs: Last Vital Signs Temp 98 F 10/12/16 12:04 Pulse 86 10/12/16 12:04 Resp 18 10/12/16 12:04 BP 137/73 10/12/16 12:04 Pulse Ox 100 10/12/16 12:04 - Labs Result Diagrams: 10/12/16 05:00 10/12/16 05:00 Labs: Laboratory Results - last 24 hr 10/11/16 10/11/16 10/12/16 16:26 21:08 05:00 WBC 15.5 H RBC 2.88 L Hgb 8.7 L Hct 27.3 L MCV 95.0 H MCH 30.3 MCHC 31.9 L RDW 14.8 H Plt Count 195 Sodium Potassium Chloride Carbon Dioxide Anion Gap BUN Creatinine Est GFR ( Amer) Est GFR (Non-Af Amer) POC Glucose (mg/dL) 122 H 160 H Random Glucose Calcium 10/12/16 10/12/16 10/12/16 05:00 05:33 11:03 WBC RBC Hgb Hct MCV MCH MCHC RDW Plt Count Sodium 141 Potassium 4.1 Chloride 114 H Carbon Dioxide 15 L Anion Gap 16 BUN 41 H Creatinine 2.2 H Est GFR ( Amer) 36 Est GFR (Non-Af Amer) 30 POC Glucose (mg/dL) 169 H 325 H Random Glucose 162 H Calcium 8.7
[2016-10-12] MEDS ORDERED: Risperidone M tab 0.5MG PO PRN (14:27)
--- NOTE | 2016-10-12 15:38 | PCM.SURG1 ---
Surgeon's Initial Post Op Note - Surgeon's Notes Surgeon: Lambert López MD Facing Cutting Machine Operator: NONE Type of Anesthesia: Local Pre-Operative Diagnosis: Poor venous access Operative Findings: US showed patent right basilic vein. Post-Operative Diagnosis: Poor venous access Operation Performed: Single lumen placement right basilic vein, 39 cm. Tip in SVC. Specimen/Specimens Removed: None Estimated Blood Loss: EBL {In ML}: 2 Blood Products Given: N/A Drains Used: No Drains Post-Op Condition: Fair Date of Surgery/Procedure: 10/12/16 Time of Surgery/Procedure: 15:35
--- NOTE | 2016-10-12 17:42 | CP.PCM.PN ---
Subjective - Date & Time of Evaluation Date of Evaluation: 10/12/16 Time of Evaluation: 17:39 - Subjective Subjective: letargi and confused Evaluated by Dr. Arley Martinez for PVD Objective - Vital Signs/Intake and Output Vital Signs (last 24 hours): Temp Pulse Resp BP Pulse Ox 97.5 F L 91 H 20 132/72 99 10/12/16 16:34 10/12/16 16:34 10/12/16 16:34 10/12/16 16:34 10/12/16 16:34 Intake and Output: 10/12/16 10/12/16 06:59 18:59 Intake Total 400 Output Total 1100 Balance -700 - Medications Medications: Current Medications Acetaminophen (Tylenol 325mg Tab) 650 mg PO Q4 PRN PRN Reason: Pain, moderate (4-7) Digoxin (Lanoxin) 0.125 mg PO DAILY [facility] Last Admin: 10/12/16 10:00 Dose: 0.125 mg Diltiazem HCl (Cardizem) 30 mg PO QID [facility] Last Admin: 10/12/16 16:32 Dose: 30 mg Vancomycin HCl 750 mg/ Sodium (Chloride) 250 mls @ 166.667 mls/hr IVPB DAILY [facility] Last Admin: 10/12/16 16:34 Dose: 166.667 mls/hr Insulin Human Regular (Humulin R) 0 units SC ACHS [facility] PRN Reason: Protocol Last Admin: 10/12/16 16:33 Dose: 3 unit Lidocaine (Lidoderm) 1 ea TD DAILY [facility] Last Admin: 10/12/16 10:00 Dose: 1 ea Metronidazole (Flagyl) 500 mg PO Q8 [facility] Last Admin: 10/12/16 16:33 Dose: 500 mg Risperidone (Risperdal M-Tab) 0.5 mg PO HS PRN PRN Reason: Agitation - Labs Labs: 10/12/16 05:00 10/12/16 05:00 PT 13.2 Seconds (9.8-13.1) H 10/05/16 20:14 INR 1.2 (0.9-1.2) 10/05/16 20:14 APTT 27.6 Seconds (25.6-37.1) 10/05/16 20:14 - Constitutional Appears: Toxic - Head Exam Head Exam: NORMAL INSPECTION - Eye Exam Eye Exam: Normal appearance - Neck Exam Neck Exam: Normal Inspection - Respiratory Exam Respiratory Exam: Rhonchi - Cardiovascular Exam Cardiovascular Exam: Irregular Rhythm - Extremities Exam Extremities Exam: Pedal Edema Assessment and Plan - Assessment and Plan (Free Text) Assessment: Prox A Fib l E. Fecalis Bacteremia PVD CKD AMS C. Diff Colitis Plan: Cont Diltiazem HCl (Cardizem) 30 mg PO QID [facility] Enoxaparin Sodium (Lovenox) 30 mg SC DAILY [facility] Vancomycin HCl 750 mg/ Sodium (Chloride) 250 mls @ 166.667 mls/hr IVPB DAILY [facility] change Digoxin (Lanoxin) 0.125 mg PO DAILY Oral Flagyl was started
--- NOTE | 2016-10-12 21:06 | CP.PCM.PN ---
Subjective - Date & Time of Evaluation Date of Evaluation: 10/12/16 Time of Evaluation: 12:30 - Subjective Subjective: F/U Fall, Weakness. Pt smiling, more alert, no A/D, c/o of mild pain in the R hip. Objective - Vital Signs/Intake and Output Vital Signs (last 24 hours): Temp Pulse Resp BP Pulse Ox 100.2 F H 99 H 20 135/68 98 10/12/16 20:46 10/12/16 20:46 10/12/16 20:46 10/12/16 20:46 10/12/16 20:46 Intake and Output: 10/12/16 10/13/16 18:59 06:59 Intake Total 400 Output Total 1100 Balance -700 - Medications Medications: Current Medications Acetaminophen (Tylenol 325mg Tab) 650 mg PO Q4 PRN PRN Reason: Pain, moderate (4-7) Digoxin (Lanoxin) 0.125 mg PO DAILY [facility] Last Admin: 10/12/16 10:00 Dose: 0.125 mg Diltiazem HCl (Cardizem) 30 mg PO QID [facility] Last Admin: 10/12/16 16:32 Dose: 30 mg Vancomycin HCl 750 mg/ Sodium (Chloride) 250 mls @ 166.667 mls/hr IVPB DAILY [facility] Last Admin: 10/12/16 16:34 Dose: 166.667 mls/hr Insulin Human Regular (Humulin R) 0 units SC ACHS [facility] PRN Reason: Protocol Last Admin: 10/12/16 16:33 Dose: 3 unit Lidocaine (Lidoderm) 1 ea TD DAILY [facility] Last Admin: 10/12/16 10:00 Dose: 1 ea Metronidazole (Flagyl) 500 mg PO Q8 [facility] Last Admin: 10/12/16 16:33 Dose: 500 mg Risperidone (Risperdal M-Tab) 0.5 mg PO HS PRN PRN Reason: Agitation - Labs Labs: 10/12/16 05:00 10/12/16 05:00 PT 13.2 Seconds (9.8-13.1) H 10/05/16 20:14 INR 1.2 (0.9-1.2) 10/05/16 20:14 APTT 27.6 Seconds (25.6-37.1) 10/05/16 20:14 - Constitutional Appears: No Acute Distress - Head Exam Head Exam: NORMAL INSPECTION - Eye Exam Eye Exam: PERRL - Neck Exam Neck Exam: Normal Inspection - Respiratory Exam Respiratory Exam: NORMAL BREATHING PATTERN - Cardiovascular Exam Cardiovascular Exam: REGULAR RHYTHM - GI/Abdominal Exam GI & Abdominal Exam: Soft, Normal Bowel Sounds - Extremities Exam Additional comments: Tenderness RLE with limited ROM 2nd to pain, red circular area on R hip, dry ulcer R foot, b/l heels DTI. - Back Exam Additional comments: Redness buttocks and Perineum - Neurological Exam Neurological Exam: Awake Additional comments: Confused, but more alert, follows simple commands, able to talk with singles words, generalized weakness. - Psychiatric Exam Additional comments: Calm - Skin Skin Exam: Warm Assessment and Plan (1) Falls Status: Acute (2) Dehydration Status: Acute (3) Bacteremia due to Gram-positive bacteria Status: Acute (4) Weakness Status: Chronic (5) Renal failure Status: Acute (6) Hyperglycemia Status: Acute (7) Diabetes mellitus type 2 in nonobese Status: Chronic (8) New onset a-fib Status: Acute (9) Hip pain Status: Chronic (10) HTN (hypertension) Status: Chronic (11) Gait difficulty Status: Chronic (12) Avascular necrosis of bone of right hip Status: Acute (13) Delirium Status: Acute (14) GEORGINA (acute kidney injury) Status: Acute (15) Chronic renal failure Status: Chronic - Assessment and Plan (Free Text) Plan: Continue Vanco,Flagyl , Cardizem , Risperdal , Lidoderm and rest of Tx.
[2016-10-13] MEDS: Insulin Regular 100 units/ml SC SCH ×3 (06:33→17:11)
[2016-10-13 07:09] LABS: HEMATOCRIT 26.2 % (35.0-51.0); MEAN CELL VOLUME 93.5 fl (80.0-94.0); MEAN CORPUSCULAR HEMOGLOBIN 30.6 pg (27.0-31.0); MEAN CORPUSCULAR HGB CONC 32.8 g/dL (33.0-37.0); RED CELL DISTRIBUTION WIDTH 14.9 % (11.5-14.5); WHITE BLOOD COUNT 14.7 K/uL (4.8-10.8)
[2016-10-13 07:21] LABS: CALCIUM 8.7 mg/dL (8.4-10.2); POTASSIUM 4.3 MMOL/L (3.6-5.0)
[2016-10-13] MEDS: Digoxin 125 mcg (0.125 mg) Tab PO SCH (09:42)
[2016-10-13] MEDS: Lidocaine 5% Patch TD SCH (09:44)
[2016-10-13 09:45] VITALS: PULSE 90
--- NOTE | 2016-10-13 10:57 | CT ---
PROCEDURE: CT Chest without contrast HISTORY: leukocytosis COMPARISON: None. TECHNIQUE: Contiguous axial images were obtained through the chest without intravenous contrast enhancement. Sagittal and coronal reconstructions were performed. Radiation dose (DLP): 515.99 mGy-cm. This CT exam was performed using one or more of the following dose reduction techniques: Automated exposure control, adjustment of the mA and/or kV according to patient size, and/or use of iterative reconstruction technique. FINDINGS: LUNGS: No acute infiltrate. Evaluation of the lung parenchyma is limited due to respiratory motion artifact. No pulmonary mass identified. No endobronchial mass. Trace mucous secretion in the trachea and right mainstem bronchus. MEDIASTINUM: Unremarkable thoracic aorta. No aneurysm. Normal heart size. Coronary arterial calcification. Main pulmonary artery unremarkable. No vascular congestion. No lymphadenopathy. Small to moderate hiatal hernia. Unremarkable thyroid gland. PLEURA: Minimal bilateral pleural effusion. No pneumothorax. BONES: No fracture. No destructive lesion. UPPER ABDOMEN: Grossly unremarkable. OTHER FINDINGS: None. IMPRESSION: Minimal bilateral pleural effusion. No acute infiltrate. Small to moderate hiatal hernia. Coronary arterial calcification.
--- NOTE | 2016-10-13 12:30 | CP.PCM.PN ---
Subjective - Date & Time of Evaluation Date of Evaluation: 10/13/16 Time of Evaluation: 12:30 - Subjective Subjective: ID Note- Pt. seen and examined today. No new events overnight. Pt. denies any complaints today. has new right arm PICC line. as per INTERNAL GRINDER TENDER pt. is being d/c to [facility] as there is no acute surgical interventions to be done for the HIP as per ortho . Objective - Vital Signs/Intake and Output Vital Signs (last 24 hours): Temp Pulse Resp BP Pulse Ox 98.4 F 93 H 18 134/72 99 10/13/16 12:00 10/13/16 12:00 10/13/16 12:00 10/13/16 12:00 10/13/16 12:00 Intake and Output: 10/13/16 10/13/16 06:59 18:59 Intake Total 250 Output Total 500 Balance -250 - Medications Medications: Current Medications Acetaminophen (Tylenol 325mg Tab) 650 mg PO Q4 PRN PRN Reason: Pain, moderate (4-7) Acetaminophen (Tylenol 325mg Tab) 650 mg PO Q4 PRN PRN Reason: Fever>100.1 Last Admin: 10/12/16 21:00 Dose: 650 mg Digoxin (Lanoxin) 0.125 mg PO DAILY [facility] Last Admin: 10/13/16 09:42 Dose: 0.125 mg Diltiazem HCl (Cardizem) 30 mg PO QID [facility] Last Admin: 10/13/16 09:40 Dose: 30 mg Vancomycin HCl 750 mg/ Sodium (Chloride) 250 mls @ 166.667 mls/hr IVPB DAILY [facility] Last Admin: 10/13/16 09:43 Dose: 166.667 mls/hr Insulin Human Regular (Humulin R) 0 units SC ACHS [facility] PRN Reason: Protocol Last Admin: 10/13/16 06:33 Dose: 1 unit Lidocaine (Lidoderm) 1 ea TD DAILY [facility] Last Admin: 10/13/16 09:44 Dose: Not Given Metronidazole (Flagyl) 500 mg PO Q8 [facility] Last Admin: 10/13/16 09:42 Dose: 500 mg Risperidone (Risperdal M-Tab) 0.5 mg PO HS PRN PRN Reason: Agitation - Labs Labs: - Additional Findings Additional findings: - Constitutional Appears: No Acute Distress - Head Exam Head Exam: ATRAUMATIC - Eye Exam Eye Exam: PERRL - ENT Exam ENT Exam: Normal Oropharynx - Neck Exam Neck exam: Positive for: Full Rom - Respiratory Exam Respiratory Exam: NORMAL BREATHING PATTERN Additional comments: good breath sounds b/l no wheezing slightly decreased at left base - Cardiovascular Exam Cardiovascular Exam: RRR, +S1, +S2 - GI/Abdominal Exam GI & Abdominal Exam: Normal Bowel Sounds, Soft Additional comments: NT, ND No guarding, No rebound - Extremities Exam Additional comments: no edema B/l LE Right lateral foot small round dry ulcer , no active d/c this is in region where pt. has had prior amputation - Neurological Exam Neurological exam: Alert Laboratory Results - last 72 hr 10/10/16 10/10/16 10/10/16 12:48 15:00 16:16 WBC RBC Hgb Hct MCV MCH MCHC RDW Plt Count Sodium Potassium Chloride Carbon Dioxide Anion Gap BUN Creatinine Est GFR ( Amer) Est GFR (Non-Af Amer) POC Glucose (mg/dL) 297 H Random Glucose Calcium Ur Random Sodium 101 Ur Random Potassium 17.5 Vancomycin Trough C. difficile Ag & Toxin Positive antigen 10/10/16 10/11/16 10/11/16 22:38 05:39 09:00 WBC 13.8 H RBC 2.80 L Hgb 8.6 L Hct 26.1 L MCV 93.4 MCH 30.6 MCHC 32.8 L RDW 14.9 H Plt Count 188 Sodium Potassium Chloride Carbon Dioxide Anion Gap BUN Creatinine Est GFR ( Amer) Est GFR (Non-Af Amer) POC Glucose (mg/dL) 215 H 176 H Random Glucose Calcium Ur Random Sodium Ur Random Potassium Vancomycin Trough C. difficile Ag & Toxin 10/11/16 10/11/16 10/11/16 09:00 11:40 16:26 WBC RBC Hgb Hct MCV MCH MCHC RDW Plt Count Sodium 140 Potassium 3.9 Chloride 113 H Carbon Dioxide 17 L Anion Gap 14 BUN 40 H Creatinine 2.1 H Est GFR ( Amer) 38 Est GFR (Non-Af Amer) 31 POC Glucose (mg/dL) 297 H 122 H Random Glucose 143 H Calcium 8.8 Ur Random Sodium Ur Random Potassium Vancomycin Trough C. difficile Ag & Toxin 10/11/16 10/12/16 10/12/16 21:08 05:00 05:00 WBC 15.5 H RBC 2.88 L Hgb 8.7 L Hct 27.3 L MCV 95.0 H MCH 30.3 MCHC 31.9 L RDW 14.8 H Plt Count 195 Sodium 141 Potassium 4.1 Chloride 114 H Carbon Dioxide 15 L Anion Gap 16 BUN 41 H Creatinine 2.2 H Est GFR ( Amer) 36 Est GFR (Non-Af Amer) 30 POC Glucose (mg/dL) 160 H Random Glucose 162 H Calcium 8.7 Ur Random Sodium Ur Random Potassium Vancomycin Trough C. difficile Ag & Toxin 10/12/16 10/12/16 10/12/16 05:33 11:03 16:09 WBC RBC Hgb Hct MCV MCH MCHC RDW Plt Count Sodium Potassium Chloride Carbon Dioxide Anion Gap BUN Creatinine Est GFR ( Amer) Est GFR (Non-Af Amer) POC Glucose (mg/dL) 169 H 325 H 270 H Random Glucose Calcium Ur Random Sodium Ur Random Potassium Vancomycin Trough C. difficile Ag & Toxin 10/12/16 10/13/16 10/13/16 21:47 05:20 05:20 WBC 14.7 H RBC 2.80 L Hgb 8.6 L Hct 26.2 L MCV 93.5 MCH 30.6 MCHC 32.8 L RDW 14.9 H Plt Count 218 Sodium 139 Potassium 4.3 Chloride 114 H Carbon Dioxide 15 L Anion Gap 14 BUN 43 H Creatinine 2.2 H Est GFR ( Amer) 36 Est GFR (Non-Af Amer) 30 POC Glucose (mg/dL) 267 H Random Glucose 161 H Calcium 8.7 Ur Random Sodium Ur Random Potassium Vancomycin Trough C. difficile Ag & Toxin 10/13/16 10/13/16 10/13/16 05:20 05:23 10:55 WBC RBC Hgb Hct MCV MCH MCHC RDW Plt Count Sodium Potassium Chloride Carbon Dioxide Anion Gap BUN Creatinine Est GFR ( Amer) Est GFR (Non-Af Amer) POC Glucose (mg/dL) 174 H 272 H Random Glucose Calcium Ur Random Sodium Ur Random Potassium Vancomycin Trough 15.8 H C. difficile Ag & Toxin Microbiology 10/09/16 16:45 Blood-Venous Blood Culture - Preliminary NO GROWTH AFTER 3 DAYS 10/06/16 13:10 Blood Blood Culture - Final NO GROWTH AFTER 5 DAYS 10/06/16 13:10 Blood Gram Stain - Final TEST NOT PERFORMED 10/05/16 18:49 Blood S.aureus & Coag-Neg Staph PNA FISH - Final 10/05/16 18:49 Blood Blood Culture - Final Enterococcus Faecalis 10/05/16 18:49 Blood Gram Stain - Final 10/05/16 19:09 Urine,[place] Urine Culture - Final No Growth (<1,000 CFU/ML) Assessment and Plan (1) Renal insufficiency Status: Deleted (2) Weakness Status: Chronic (3) Diabetes Status: Acute (4) Bacteremia due to Gram-positive bacteria Status: Acute - Assessment and Plan (Free Text) Assessment: A/P- 71 year old amle with h/o DM ii, HTN s/p fall and found to have GPC in prelim blood cx. remains febrile slight decrease in leukocytosis today. admission blood cx- e.fecalis. urine cx- neg repeat blood cx from 10/06- negative x 2 High ESR Echo- no vegetations as per building drafting officer's report. stool c.diff AG/Toxin- positive foot and hip MRI reports noted and as per INTERNAL GRINDER TENDER no surgical interventions recommended by ortho at this time. plan- continue with IV vanco, renal dose. day #8 keep trough <20. check trough every 4th day. needs total of 21 days of IV vancomycin for the e.fecalis bacteremia can be completed at [place]. continue with oral metronidazole for c.diff, day #4 today check 2 more stool c.diff. and if they are negative continue metronidazole for total of 14 days. all above d/w Albert Swan NP.
--- NOTE | 2016-10-13 12:32 | CP.PCM.PN ---
Subjective - Date & Time of Evaluation Date of Evaluation: 10/13/16 Time of Evaluation: 10:00 - Subjective Subjective: F/U Fall, Weakness. Pt awake, able to talk, c/o of pain in R hip, agitated last night and early in the morning was given Ativan. Objective - Vital Signs/Intake and Output Vital Signs (last 24 hours): Temp Pulse Resp BP Pulse Ox 98.4 F 93 H 18 134/72 99 10/13/16 12:00 10/13/16 12:00 10/13/16 12:00 10/13/16 12:00 10/13/16 12:00 Intake and Output: 10/13/16 10/13/16 06:59 18:59 Intake Total 250 Output Total 500 Balance -250 - Medications Medications: Current Medications Acetaminophen (Tylenol 325mg Tab) 650 mg PO Q4 PRN PRN Reason: Pain, moderate (4-7) Acetaminophen (Tylenol 325mg Tab) 650 mg PO Q4 PRN PRN Reason: Fever>100.1 Last Admin: 10/12/16 21:00 Dose: 650 mg Digoxin (Lanoxin) 0.125 mg PO DAILY [facility] Last Admin: 10/13/16 09:42 Dose: 0.125 mg Diltiazem HCl (Cardizem) 30 mg PO QID [facility] Last Admin: 10/13/16 09:40 Dose: 30 mg Vancomycin HCl 750 mg/ Sodium (Chloride) 250 mls @ 166.667 mls/hr IVPB DAILY [facility] Last Admin: 10/13/16 09:43 Dose: 166.667 mls/hr Insulin Human Regular (Humulin R) 0 units SC ACHS [facility] PRN Reason: Protocol Last Admin: 10/13/16 06:33 Dose: 1 unit Lidocaine (Lidoderm) 1 ea TD DAILY [facility] Last Admin: 10/13/16 09:44 Dose: Not Given Metronidazole (Flagyl) 500 mg PO Q8 [facility] Last Admin: 10/13/16 09:42 Dose: 500 mg Risperidone (Risperdal M-Tab) 0.5 mg PO HS PRN PRN Reason: Agitation - Labs Labs: 10/13/16 05:20 10/13/16 05:20 PT 13.2 Seconds (9.8-13.1) H 10/05/16 20:14 INR 1.2 (0.9-1.2) 10/05/16 20:14 APTT 27.6 Seconds (25.6-37.1) 10/05/16 20:14 - Constitutional Appears: No Acute Distress - Head Exam Head Exam: NORMAL INSPECTION - Eye Exam Eye Exam: PERRL - ENT Exam ENT Exam: Normal Oropharynx - Neck Exam Neck Exam: Normal Inspection - Respiratory Exam Respiratory Exam: NORMAL BREATHING PATTERN - Cardiovascular Exam Cardiovascular Exam: REGULAR RHYTHM - GI/Abdominal Exam GI & Abdominal Exam: Soft, Normal Bowel Sounds - Extremities Exam Additional comments: Tenderness RLE with limited ROM 2nd to pain, Red circular area on R hip, dry ulcer R foot, b/l heels DTI. - Back Exam Additional comments: Redness buttocks and Perineum. - Neurological Exam Neurological Exam: Awake Additional comments: Confused, follows simple commands, able to talk with single words, generalized weakness. - Psychiatric Exam Additional comments: Calm - Skin Skin Exam: Warm Assessment and Plan (1) Falls Status: Acute (2) Dehydration Status: Acute (3) Bacteremia due to Gram-positive bacteria Status: Acute (4) Weakness Status: Chronic (5) Renal failure Status: Acute (6) Hyperglycemia Status: Acute (7) Diabetes mellitus type 2 in nonobese Status: Chronic (8) New onset a-fib Status: Acute (9) Hip pain Status: Chronic (10) HTN (hypertension) Status: Chronic (11) Gait difficulty Status: Chronic (12) Avascular necrosis of bone of right hip Status: Acute (13) GEORGINA (acute kidney injury) Status: Acute (14) Chronic renal failure Status: Chronic (15) Delirium Status: Acute - Assessment and Plan (Free Text) Plan: Continue Vanco , Flagyl, Cardizem, Digoxin Risperdal and rest of treatment, improved , stable to be transfered to [facility] , see inst/med sheet
[2016-10-13 16:12] VITALS: BP 141/70; PULSE 85; RESP 20; TEMP 98.2; O2SAT 95
--- NOTE | 2016-10-18 11:15 | VASCULAR ---
PROCEDURE: Date of procedure: 10/12/2016 Procedure: 1. Placement of a right arm PICC with ultrasound and fluoroscopic guidance, CPT 92790 2. PICC tip confirmation with spot radiograph and is in the superior vena cava Medications: 3cc 1 percent lidocaine HISTORY: Infection requiring long-term IV antibiotics TECHNIQUE: Following informed consent and procedure time-out, the patient was placed supine on the interventional table and the right arm prepped and draped in the usual sterile fashion. Ultrasound showed a patent and compressible right basilic vein. After the skin was anesthetized with lidocaine, the basilic vein was accessed with micro micropuncture technique using ultrasound guidance. A guidewire was then advanced under fluoroscopic guidance into the superior vena cava. An image documenting ultrasound guidance for vascular access was permanently saved. The length of the single-lumen 4 [place] PICC was trimmed to 39 centimeters and advanced through a peel-away sheath. The PICC was position with tip of PICC confirm a spot radiograph the superior vena cava. The PICC was secured to the patient's skin. The PICC was flushed. A biopatch and sterile dressing was applied. IMPRESSION: Placement of a single-lumen 4 [place]i PICC trimmed to 39 centimeters via right basilic vein. The tip of the PICC is confirmed with spot radiograph and is in the superior vena cava.
--- NOTE | 2016-10-20 12:48 | CP.PCM.DIS ---
Provider - Provider Date of Admission: 10/06/16 12:23 Attending physician: Kumar Day MD Consults: Cardiology, ID, Wound Care, Orthopedic, Podiatry and Psychiatry. Time Spent in preparation of Discharge (in minutes): 25 Diagnosis - Discharge Diagnosis (1) Falls Status: Acute Priority: High (2) Dehydration Status: Acute Priority: High (3) Bacteremia due to Gram-positive bacteria Status: Acute Priority: High (4) Weakness Status: Chronic Priority: High (5) Renal failure Status: Acute Priority: High (6) Hyperglycemia Status: Acute Priority: High (7) Diabetes mellitus type 2 in nonobese Status: Chronic Priority: High (8) New onset a-fib Status: Acute Priority: High (9) Hip pain Status: Chronic Priority: High (10) HTN (hypertension) Status: Chronic Priority: Medium (11) Gait difficulty Status: Chronic Priority: High (12) Avascular necrosis of bone of right hip Status: Acute Priority: High (13) GEORGINA (acute kidney injury) Status: Acute (14) Chronic renal failure Status: Chronic (15) Delirium Status: Acute Hospital Course - Lab Results Lab Results: Micro Results 10/12/16 21:00 Urine,Triplett Urine Culture - Final No Growth (<1,000 CFU/ML) 10/09/16 16:45 Blood-Venous Blood Culture - Final NO GROWTH AFTER 5 DAYS 10/09/16 16:45 Blood-Venous Gram Stain - Final TEST NOT PERFORMED 10/06/16 13:10 Blood Blood Culture - Final NO GROWTH AFTER 5 DAYS 10/06/16 13:10 Blood Gram Stain - Final TEST NOT PERFORMED Most Recent Lab Values WBC 14.7 K/uL (4.8-10.8) H 10/13/16 05:20 RBC 2.80 Mil/uL (4.40-5.90) L 10/13/16 05:20 Hgb 8.6 g/dL (12.0-18.0) L 10/13/16 05:20 Hct 26.2 % (35.0-51.0) L 10/13/16 05:20 MCV 93.5 fl (80.0-94.0) 10/13/16 05:20 MCH 30.6 pg (27.0-31.0) 10/13/16 05:20 MCHC 32.8 g/dL (33.0-37.0) L 10/13/16 05:20 RDW 14.9 % (11.5-14.5) H 10/13/16 05:20 Plt Count 218 K/uL (130-400) 10/13/16 05:20 MPV 10.2 fl (7.2-11.7) 10/10/16 06:30 Neut % (Auto) 76.6 % (50.0-75.0) H 10/10/16 06:30 Lymph % (Auto) 11.8 % (20.0-40.0) L 10/10/16 06:30 [place] % (Auto) 7.8 % (0.0-10.0) 10/10/16 06:30 Eos % (Auto) 3.2 % (0.0-4.0) 10/10/16 06:30 Baso % (Auto) 0.6 % (0.0-2.0) 10/10/16 06:30 Neut # 10.7 K/uL (1.8-7.0) H 10/10/16 06:30 Lymph # 1.7 K/uL (1.0-4.3) 10/10/16 06:30 [place] # 1.1 K/uL (0.0-0.8) H 10/10/16 06:30 Eos # 0.4 K/uL (0.0-0.7) 10/10/16 06:30 Baso # 0.1 K/uL (0.0-0.2) 10/10/16 06:30 Neutrophils % (Manual) 73 % (42-75) 10/05/16 17:30 Lymphocytes % (Manual) 13 % (20-50) L 10/05/16 17:30 Monocytes % (Manual) 13 % (0-10) H 10/05/16 17:30 Basophils % (Manual) 1 % (0-2) 10/05/16 17:30 Platelet Estimate Normal (NORMAL) 10/05/16 17:30 ESR 107 mm/hr (0-20) H 10/06/16 18:00 PT 13.2 Seconds (9.8-13.1) H 10/05/16 20:14 INR 1.2 (0.9-1.2) 10/05/16 20:14 APTT 27.6 Seconds (25.6-37.1) 10/05/16 20:14 pO2 14 mm/Hg (30-55) L 10/05/16 20:35 VBG pH 7.27 (7.32-7.43) L 10/05/16 20:35 VBG pCO2 39 mmHg (40-60) L 10/05/16 20:35 VBG HCO3 16.1 mmol/L 10/05/16 20:35 VBG Total CO2 19.1 mmol/L (22-28) L 10/05/16 20:35 VBG O2 Sat (Calc) 19.9 % (40-65) L 10/05/16 20:35 VBG Base Excess -8.4 mmol/L (0.0-2.0) L 10/05/16 20:35 VBG Potassium 4.7 mmol/L (3.6-5.2) 10/05/16 20:35 Sodium 149.0 mmol/L (132-148) H 10/05/16 20:35 Chloride 120.0 mmol/L (98-107) H 10/05/16 20:35 Glucose 299 mg/dL (75-110) H 10/05/16 20:35 Lactate 2.0 mmol/L (0.7-2.1) 10/05/16 20:35 FiO2 21.0 % 10/05/16 20:35 Sodium 139 mmol/l (132-148) 10/13/16 05:20 Potassium 4.3 MMOL/L (3.6-5.0) 10/13/16 05:20 Chloride 114 mmol/L (98-107) H 10/13/16 05:20 Carbon Dioxide 15 mmol/L (22-30) L 10/13/16 05:20 Anion Gap 14 (10-20) 10/13/16 05:20 BUN 43 mg/dl (9-20) H 10/13/16 05:20 Creatinine 2.2 mg/dL (0.8-1.5) H 10/13/16 05:20 Est GFR ( Amer) 36 10/13/16 05:20 Est GFR (Non-Af Amer) 30 10/13/16 05:20 POC Glucose (mg/dL) 135 mg/dL (65-110) H 10/13/16 17:05 Random Glucose 161 mg/dL (75-110) H 10/13/16 05:20 Hemoglobin A1c 7.4 % (4.2-6.5) H 10/07/16 08:30 Calcium 8.7 mg/dL (8.4-10.2) 10/13/16 05:20 Phosphorus 3.8 mg/dl (2.5-4.5) 10/06/16 12:30 Magnesium 2.0 MG/DL (1.6-2.3) 10/06/16 12:30 Iron 40 ug/dL (49-181) L 10/06/16 14:59 TIBC 195 ug/dL (250-450) L 10/06/16 14:59 % Saturation 21 % (20-55) 10/06/16 14:59 Ferritin 1000.0 ng/mL 10/06/16 14:59 Total Bilirubin 0.3 mg/dl (0.2-1.3) 10/10/16 06:30 AST 31 U/L (17-59) 10/10/16 06:30 ALT 34 U/L (21-72) 10/10/16 06:30 Alkaline Phosphatase 134 U/L (38-126) H D 10/10/16 06:30 Total Creatine Kinase 187 U/L (55-170) H 10/05/16 17:30 Troponin I 0.0130 ng/mL (0.00-0.120) 10/05/16 17:30 NT-Pro-B Natriuret Pep 1750 pg/ml (0-900) H 10/05/16 17:30 Total Protein 6.1 G/DL (6.3-8.2) L 10/10/16 06:30 Albumin 2.7 g/dL (3.5-5.0) L 10/10/16 06:30 Globulin 3.4 gm/dL (2.2-3.9) 10/10/16 06:30 Albumin/Globulin Ratio 0.8 (1.0-2.1) L 10/10/16 06:30 Triglycerides 358 mg/DL (0-149) H 10/07/16 08:30 Cholesterol 112 mg/dL (0-199) 10/07/16 08:30 LDL Cholesterol Direct 44 mg/dL (0-129) 10/07/16 08:30 HDL Cholesterol 8 MG/DL (30-70) L 10/07/16 08:30 Vitamin B12 360 pg/mL (239-931) 10/06/16 14:59 Folate > 20.0 ng/mL 10/06/16 14:59 Thyroxine (T4) 6.32 ug/dl (5.5-11.0) 10/07/16 08:30 TSH 3rd Generation 1.68 mIU/ML (0.46-4.68) 10/07/16 08:30 Venous Blood Potassium 4.7 mmol/L (3.6-5.2) 10/05/16 20:35 Urine Color Yellow (YELLOW) 10/05/16 19:09 Urine Clarity Slighty-cloudy (Clear) 10/05/16 19:09 Urine pH 5.0 (5.0-8.0) 10/05/16 19:09 Ur Specific [place] 1.017 (1.003-1.030) 10/05/16 19:09 Urine Protein 100 mg/dL (NEGATIVE) 10/05/16 19:09 Urine Glucose (UA) Neg mg/dL (Normal) 10/05/16 19:09 Urine Ketones Negative mg/dL (NEGATIVE) 10/05/16 19:09 Urine Blood Moderate (NEGATIVE) 10/05/16 19:09 Urine Nitrate Negative (NEGATIVE) 10/05/16 19:09 Urine Bilirubin Negative (NEGATIVE) 10/05/16 19:09 Urine Urobilinogen 0.2-1.0 mg/dL (0.2-1.0) 10/05/16 19:09 Ur Leukocyte Esterase Neg Jac/uL (Negative) 10/05/16 19:09 Urine RBC (Auto) 9 /hpf (0-3) H 10/05/16 19:09 Urine Microscopic WBC 5 /hpf (0-5) 10/05/16 19:09 Ur Squamous Epith Cells < 1 /hpf (0-5) 10/05/16 19:09 Urine Yeast (Budding) Few /hpf (NEGATIVE) H 10/05/16 19:09 Ur Random Sodium 101 meq/L 10/10/16 12:48 Ur Random Potassium 17.5 mmol/L 10/10/16 12:48 Vancomycin Trough 15.8 ug/mL (5.0-10.0) H 10/13/16 05:20 Digoxin 1.0 ng/mL (0.8-2.0) 10/10/16 06:30 Alcohol, Quantitative < 10 mg/dl (0-10) 10/05/16 17:30 C. difficile Ag & Toxin Positive antigen (NEGATIVE) 10/10/16 15:00 - Date & Time of H&P Date of H&P: 10/06/16 Time of H&P: 12:00 Discharge Exam - Head Exam Head Exam: NORMAL INSPECTION Discharge Plan - Discharge Medications Prescriptions: Vancomycin/0.9 % Sod Chloride [Vanco 750 mg/250 ml-0.9% NaCl] 750 mg IV DAILY # 13 plast..bag - Follow Up Plan Condition: FAIR Disposition: TRANSF TO SNF Instructions: Dehydration (DC), Weakness (ED), Weakness (GEN) Additional Instructions: patient cleared for discharge to [facility] today by / cont. Vancomycin IV for 13 more days (complete total of 21 days) cont. po flagyl see med reconciliation Pt. will be admitted under at [facility] (sSW made aware) notified f/u cbc, bmp, vanco trough cont. PT/OT f/u with outpatient Referrals: Meng Santos MD [Staff Provider] - Elijah Masters MD [Staff Provider] - Laurence Singh MD [Staff Provider] - Kumar Day MD [Staff Provider] -
== END 2016-10-13 18:00 | DRG 871 ==
LOC: H.ER 16:15 → H.ERHOLD 20:13 → H.TEL 22:53 → OBSVTOIN 10-06 12:23 → H.TEL 10-11 12:22
PROVIDERS: ADMIT Internal Medicine Pulmonary Disease; ATTEND Internal Medicine Pulmonary Disease
PROC: 02HV33Z Insertion of Infusion Device into Superior Vena Cava, Percutaneous Approach (ICD-10-PCS; principal; 2016-10-12)
DX: A41.9 Sepsis, unspecified organism (principal); J12.9 Viral pneumonia, unspecified; N17.9 Acute kidney failure, unspecified; A04.7 Enterocolitis due to Clostridium difficile; E11.22 Type 2 diabetes mellitus with diabetic chronic kidney disease; E11.40 Type 2 diabetes mellitus with diabetic neuropathy, unspecified; D69.6 Thrombocytopenia, unspecified; F03.90 Unspecified dementia, unspecified severity, without behavioral disturbance, psychotic disturbance, mood disturbance, and anxiety; I48.0 Paroxysmal atrial fibrillation; E86.0 Dehydration; I12.9 Hypertensive chronic kidney disease with stage 1 through stage 4 chronic kidney disease, or unspecified chronic kidney disease; L03.115 Cellulitis of right lower limb; M87.251 Osteonecrosis due to previous trauma, right femur; E11.65 Type 2 diabetes mellitus with hyperglycemia; D64.9 Anemia, unspecified; E78.00 Pure hypercholesterolemia, unspecified; E78.5 Hyperlipidemia, unspecified; R41.0 Disorientation, unspecified; N18.9 Chronic kidney disease, unspecified; I70.202 Unspecified atherosclerosis of native arteries of extremities, left leg; F17.210 Nicotine dependence, cigarettes, uncomplicated; B95.2 Enterococcus as the cause of diseases classified elsewhere; L97.519 Non-pressure chronic ulcer of other part of right foot with unspecified severity; Z89.419 Acquired absence of unspecified great toe

== ENCOUNTER 2016-11-20 01:08 | Inpatient (IN) | payer MEDICARE ==
[2016-11-20 01:09] VITALS: PULSE 90
[2016-11-20] MEDS ORDERED: Cefepime 2 GM in Sodium Chloride 0.9% 100 ML IVPB STA (01:32)
[2016-11-20] MEDS ORDERED: Sodium Chloride 0.9% 1,000 ML IV STA (01:33)
[2016-11-20 01:51] LABS: BASO # 0.1 K/uL (0.0-0.2); BASO % 0.4 % (0.0-2.0); EOS % 0.2 % (0.0-4.0); HEMATOCRIT 31.4 % (35.0-51.0); LYMPH % 12.5 % (20.0-40.0); MEAN CELL VOLUME 93.6 fl (80.0-94.0); MEAN CORPUSCULAR HEMOGLOBIN 29.8 pg (27.0-31.0); MEAN CORPUSCULAR HGB CONC 31.8 g/dL (33.0-37.0); MEAN PLATELET VOLUME 9.3 fl (7.2-11.7); MONO # 0.4 K/uL (0.0-0.8); MONO % 2.3 % (0.0-10.0); NEUT # 13.4 K/uL (1.8-7.0); NEUT % 84.6 % (50.0-75.0); RED CELL DISTRIBUTION WIDTH 16.3 % (11.5-14.5); WHITE BLOOD COUNT 15.9 K/uL (4.8-10.8)
[2016-11-20 02:11] LABS: CALCIUM 7.5 mg/dL (8.4-10.2); POTASSIUM 5.7 MMOL/L (3.6-5.0)
[2016-11-20 02:24] LABS: TROPONIN I 0.058 ng/mL (0.00-0.120)
[2016-11-20 02:28] LABS: ABG ALLEN TEST YES; ABG MECHANICAL RATE 12; ARTERIAL BLOOD GAS HCO3 17.6 mmol/L (21-28); ARTERIAL BLOOD GAS MODE A/C; ARTERIAL BLOOD GAS PH 7.08 (7.35-7.45); ARTERIAL BLOOD GAS PO2 66 mm/Hg (80-100); ATERIAL BLOOD GAS PEEP 5
[2016-11-20 02:43] LABS: RBC URINE 43 /hpf (0-3); URINE BACTERIA RARE (<OCC); URINE BILIRUBIN NEGATIVE (NEGATIVE); URINE BLOOD SMALL (NEGATIVE); URINE COLOR YELLOW (YELLOW); URINE GLUCOSE (UA) NEG (Normal); URINE KETONE NEGATIVE (NEGATIVE); URINE LEUKOCYTE ESTERASE NEG Leu/uL (Negative); URINE PROTEIN NEGATIVE (NEGATIVE); URINE UROBILINOGEN 0.2-1.0 mg/dL (0.2-1.0); WBC URINE 2 /hpf (0-5)
--- NOTE | 2016-11-20 03:10 | ED PDOC ---
HPI: General Adult Time Seen by Provider: 11/20/16 01:11 Chief Complaint (Nursing): Respiratory Distress Chief Complaint (Provider): Respiratory Distress History Per: Patient History/Exam Limitations: no limitations Onset/Duration Of Symptoms: Mins (Prior to arrival) Additional History Per: EMS Additional Complaint(s): Kumar Guzman is a 71 year old male, with a past medical history of hypercholesterolemia, hypertension and diabetes, who was brought to the emergency department by EMS since patient was hypoxic prior to arrival. EMS reports patient was in a mcfp and was intubated on site for airway protection. Complete HPI unobtainable due to condition of patient. PMD: None provided Past Medical History Reviewed: Historical Data, Nursing Documentation, Vital Signs Vital Signs: Last Vital Signs Temp 102.3 F H 11/20/16 02:55 Pulse 106 H 11/20/16 04:01 Resp 20 11/20/16 04:01 BP 113/54 L 11/20/16 04:01 Pulse Ox 100 11/20/16 04:01 - Medical History PMH: Anemia, Dementia, Diabetes, HTN, Hypercholesterolemia, Hyperlipidemia, Chronic Kidney Disease Denies: HIV - Family History Family History: States: Unknown Family Hx - Social History Current smoker - smoking cessation education provided: Yes (light smoker <10 cigarettes daily) Alcohol: Social Drugs: Denies - Home Medications Home Medications: Ambulatory Orders Medication Instructions Recorded Acetaminophen [Tylenol 325mg tab] 325 mg PO DAILY PRN 11/20/16 Aluminum Hydroxide/Magnesium 30 ml PO DAILY PRN 11/20/16 [Maalox Plus 30 ml] Collagenase [Santyl] 1 ml TOP DAILY 11/20/16 Digoxin [Digitek] 1 tab PO DAILY 11/20/16 Folic Acid [Folic Acid] 1 tab PO DAILY 11/20/16 Magnesium Hydroxide [Milk Of 30 ml PO DAILY 11/20/16 Magnesia] Metoprolol Leslie/Hydrochlorothiaz 1 tab PO DAILY 11/20/16 [Metoprolol ER-Hctz 100-12.5 mg] Pantoprazole Sodium [Protonix] 40 mg PO DAILY 11/20/16 Thiamine [Vitamin B1 Tab] 2 tab PO DAILY 11/20/16 - Allergies Allergies/Adverse Reactions: Allergies Allergy/AdvReac Type Severity Reaction Status Date / Time No Known Allergies Allergy Verified 10/05/16 16:18 Review of Systems ROS Statement: Except As Marked, All Systems Reviewed And Found Negative Respiratory: Positive for: Shortness of Breath Physical Exam - Reviewed Nursing Documentation Reviewed: Yes Vital Signs Reviewed: Yes - Physical Exam Appears: Positive for: Well, Non-toxic, No Acute Distress Head Exam: Positive for: ATRAUMATIC, NORMAL INSPECTION, NORMOCEPHALIC Skin: Positive for: Normal Color, Warm, DRY Eye Exam: Positive for: EOMI, Normal appearance, PERRL ENT: Positive for: Normal ENT Inspection Neck: Positive for: Normal, Painless ROM, Supple Cardiovascular/Chest: Positive for: Regular Rate, Rhythm Respiratory: Positive for: Other (intubated, non-responsive). Negative for: Normal Breath Sounds (coarse b'l breaths) Gastrointestinal/Abdominal: Positive for: Normal Exam, Bowel Sounds, Soft Back: Positive for: Normal Inspection Extremity: Positive for: Normal ROM Neurologic/Psych: Positive for: Alert, Oriented - Laboratory Results Result Diagrams: 11/20/16 01:40 11/20/16 01:40 - ECG O2 Sat by Pulse Oximetry: 96 (RA) Pulse Ox Interpretation: Normal - Critical Care Total Time (In Min): 60 Medical Decision Making Medical Decision Making: Initial Impression: Respiratory failure secondary to Pneumonia Initial Plan: --ABG Shock Panel --VGB Shock Panel --EKG --Chest one view [RAD] --Maxipime 2gm IV Q12 (TCU only) --NS IV 1,000 ml at 1,000 mls/hr ---Vancomycin Inj IVPB --B-type natriuretic peptide --Basic Metabolic Panel --Troponin I --CBC w/ differential --Blood culture --Urine culture --Urinalysis --Ventilator settings [RT] --reevaluation Pt. started to become hypotensive. Sterile central line placed. Levophed ordered, Dr. Day aware of patient. Dr. Lan aware of ICU status. Scribe Attestation: Documented by Biju Peck, acting as a scribe for John Limon MD. Provider Scribe Attestation: All medical record entries made by the Scribe were at my direction and personally dictated by me. I have reviewed the chart and agree that the record accurately reflects my personal performance of the history, physical exam, medical decision making, and the department course for this patient. I have also personally directed, reviewed, and agree with the discharge instructions and disposition. Disposition - Clinical Impression Clinical Impression: Respiratory failure, Pneumonia, Septic shock - Patient ED Disposition Is Patient to be Admitted: Yes - Disposition Disposition Time: 01:00 Condition: CRITICAL Central Line Placement - Central Line Placement Indication: Emergent IV Access (Need for pressors) Central Line Placement: Right: Internal Jugular The Area Was Thoroughly Prepared With: Chlorhexidine Area Was Locally Anesthetized With: Lidocaine 1% Procedure: Triple Lumen, Placed Using Standard Seldinger Technique, Catheter Was Sewn Into Place, Sterile Dressing Placed Over Line, Procedure Tolerated Well
--- NOTE | 2016-11-20 03:40 | CP.PCM.CON ---
History of Present Illness - History of Present Illness History of Present Illness: Attending: Kumar Day MD Reason for consult: Critical care management Chief Complaint: respiratory Distress Patient seen and examined in the ED HPI: The Hx is obtained from the medical records as the patient is intubated and very lethargic. He is a 71 years old male residing at the [facility] . He has hx of HTN, DM, and A Fib and was brought to the ED because SOB and hypoxia. He was intubated prior to arrival at the Ed . PMH: Anemia, Dementia, DM II; HTN, HLD; CKD; Osteomyelitis of the right foot ; Avascular necrosis of the right hip; A Fib; PVD; PSH: unobtainable surgical hx SH: No illegal substance use; Light smoker; Alcohol use FH: Unknown family hx Allergies: NKDA Review of Systems - Review of Systems Systems not reviewed;Unavailable: Dementia, Intubated Review of Systems: Review of systems limited because the patient is very lethargic and on the mechanical ventilator Past Patient History - Past Medical History & Family History Past Medical History?: Yes - Past Social History Smoking Status: Light Smoker < 10 Cigarettes Daily Chewing Tobacco Use: No Cigar Use: No Alcohol: Social Drugs: Denies Home Situation {Lives}: Jail - CARDIAC Hx Hypercholesterolemia: Yes Hx Hypertension: Yes - PULMONARY Hx Respiratory Disorders: No - NEUROLOGICAL Hx Dementia: Yes - HEENT Hx HEENT Problems: No - RENAL Hx Chronic Kidney Disease: Yes - ENDOCRINE/METABOLIC Hx Endocrine Disorders: Yes Hx Diabetes Mellitus Type 2: Yes - HEMATOLOGICAL/ONCOLOGICAL Hx Anemia: Yes Hx Human Immunodeficiency Virus (HIV): No - INTEGUMENTARY Hx Dermatological Problems: No - MUSCULOSKELETAL/RHEUMATOLOGICAL Hx Musculoskeletal Disorders: Yes (R hip pain) Hx Falls: Yes Hx Osteomyelitis: Yes (R foot) Hx Unsteady Gait: Yes - GASTROINTESTINAL Hx Gastrointestinal Disorders: No - GENITOURINARY/GYNECOLOGICAL Hx Genitourinary Disorders: Yes Hx Urinary Tract Infection: Yes - PSYCHIATRIC Hx Psychophysiologic Disorder: No Hx Substance Use: No - SURGICAL HISTORY Hx Surgeries: No - ANESTHESIA Hx Anesthesia: No Hx Anesthesia Reactions: No Hx Malignant Hyperthermia: No Meds Allergies/Adverse Reactions: Allergies Allergy/AdvReac Type Severity Reaction Status Date / Time No Known Allergies Allergy Verified 10/05/16 16:18 - Medications Medications: Current Medications Norepinephrine Bitartrate 8 mg (/ Dextrose) 258 mls @ 4.83 mls/hr IV .Q24H ONE PRN Reason: 2.5 MCG/MIN Stop: 11/21/16 03:05 Physical Exam - Constitutional Appears: In Acute Distress - Head Exam Head Exam: ATRAUMATIC, NORMAL INSPECTION, NORMOCEPHALIC - Eye Exam Additional comments: Pupils reacting sluggishly to light no corneal reflex - ENT Exam ENT Exam: Mucous Membranes Dry, Normal External Ear Exam - Neck Exam Neck exam: Positive for: Normal Inspection - Respiratory Exam Additional comments: Iinspoiratory and expiratory crackles on auscultation. - Cardiovascular Exam Cardiovascular Exam: Tachycardia, REGULAR RHYTHM, +S1, +S2 - GI/Abdominal Exam GI & Abdominal Exam: Hypoactive Bowel Sounds, Organomegaly, Soft - Rectal Exam Rectal Exam: Deferred - Extremities Exam Extremities exam: Positive for: normal inspection - Back Exam Back exam: NORMAL INSPECTION - Neurological Exam Additional comments: Very lethargic, responding to painful stimuli, Intubated, no facial droop, All extremities flaccid - Psychiatric Exam Psychiatric exam: Normal Affect, Normal Mood - Skin Skin Exam: Intact, Normal Color, Warm Results - Vital Signs Recent Vital Signs: Last Vital Signs Temp 102.3 F H 11/20/16 02:55 Pulse 90 11/20/16 02:55 Resp 18 11/20/16 02:55 BP Pulse Ox 96 11/20/16 03:25 - Labs Result Diagrams: 11/20/16 01:40 11/20/16 01:40 Labs: Laboratory Results - last 24 hr 11/20/16 11/20/16 11/20/16 01:40 01:40 01:57 WBC 15.9 H RBC 3.35 L Hgb 10.0 L Hct 31.4 L MCV 93.6 MCH 29.8 MCHC 31.8 L RDW 16.3 H Plt Count 159 MPV 9.3 Neut % (Auto) 84.6 H Lymph % (Auto) 12.5 L [place] % (Auto) 2.3 Eos % (Auto) 0.2 Baso % (Auto) 0.4 Neut # 13.4 H Lymph # 2.0 [place] # 0.4 Eos # 0.0 Baso # 0.1 pCO2 pO2 HCO3 ABG pH ABG Total CO2 ABG O2 Saturation ABG Base Excess Torres Test ABG Potassium A-a O2 Difference Glucose Lactate Vent Mode Mechanical Rate FiO2 Tidal Volume PEEP Crit Value Called To Crit Value Called By Crit Value Read Back Blood Gas Notified Time Sodium 146 Potassium 5.7 H Chloride 118 H Carbon Dioxide 19 L Anion Gap 15 BUN 32 H Creatinine 1.6 H Est GFR ( Amer) 52 Est GFR (Non-Af Amer) 43 Random Glucose 170 H Calcium 7.5 L Troponin I 0.0580 NT-Pro-B Natriuret Pep 4060 H Arterial Blood Potassium Urine Color Yellow Urine Clarity Clear Urine pH 5.0 Ur Specific [place] 1.013 Urine Protein Negative Urine Glucose (UA) Neg Urine Ketones Negative Urine Blood Small Urine Nitrate Negative Urine Bilirubin Negative Urine Urobilinogen 0.2-1.0 Ur Leukocyte Esterase Neg Urine RBC (Auto) 43 H Urine Microscopic WBC 2 Ur Squamous Epith Cells < 1 Urine Bacteria Rare 11/20/16 02:24 WBC RBC Hgb Hct MCV MCH MCHC RDW Plt Count MPV Neut % (Auto) Lymph % (Auto) [place] % (Auto) Eos % (Auto) Baso % (Auto) Neut # Lymph # [place] # Eos # Baso # pCO2 76 H* pO2 66 L HCO3 17.6 L ABG pH 7.08 L* ABG Total CO2 24.8 ABG O2 Saturation 93.3 L ABG Base Excess -8.9 L Torres Test Yes ABG Potassium 4.3 A-a O2 Difference 552.0 Glucose 199 H Lactate 1.3 Vent Mode A/c Mechanical Rate 12 FiO2 100.0 Tidal Volume 500 PEEP 5 Crit Value Called To John wyatt md Crit Value Called By [id number] Crit Value Read Back Y Blood Gas Notified Time 227 Sodium 146.0 Potassium Chloride 120.0 H Carbon Dioxide Anion Gap BUN Creatinine Est GFR ( Amer) Est GFR (Non-Af Amer) Random Glucose Calcium Troponin I NT-Pro-B Natriuret Pep Arterial Blood Potassium 4.3 Urine Color Urine Clarity Urine pH Ur Specific [place] Urine Protein Urine Glucose (UA) Urine Ketones Urine Blood Urine Nitrate Urine Bilirubin Urine Urobilinogen Ur Leukocyte Esterase Urine RBC (Auto) Urine Microscopic WBC Ur Squamous Epith Cells Urine Bacteria Assessment & Plan - Assessment and Plan (Free Text) Assessment: #. hypercapneic Respiratory failure #. Pneumonia #. Sepsis #. Hyperkalemia #. Dehydration #. Anemia Plan: 71 years old male residing at the [facility] . He has hx of HTN, DM, and A Fib and was brought to the ED because SOB and hypoxia. he was intubated prior to arrival at the Ed . #. Hypercapneic Respiratory failure - Pulmonary on board - Intubated on Mechanical ventilator with settings PRVC 18 ; TV 500; FiO2 80 #. Pneumonia - Vancomycin - Cefapime #. Sepsis with hypertension - ID Consult with Dr Masters - Levophed - Follow Blood and urine culture - Continue Antibiotics #. Hyperkalemia - follow electrolytes #. Dehydration - IV Fluid - Follow renal labs #. Anemia - follow Hb #. Elevated BNP of CHF, Acute Vs Chronic - Follow repeated Chest X-ray - Will need ECHO and Cardiology consult #. DVT Prophylaxis with lovenox #. Code Status: Unknown Full Code - Date & Time Date: 11/20/16 Time: 03:40
[2016-11-20] MEDS ORDERED: Sodium Chloride 0.9% 1,000 ML IV SCH ×2 (04:30→04:43)
[2016-11-20 05:02] LABS: VENOUS BLOOD GAS BASE EXCESS -7.2 mmol/L (0.0-2.0); VENOUS BLOOD GAS PCO2 49 mmHg (40-60); VENOUS BLOOD PH 7.23 (7.32-7.43)
[2016-11-20] MEDS ORDERED: Chlorhexidine Gluconate 1 APPL/PKT TP ONE (05:53)
[2016-11-20] MEDS ORDERED: Sodium Chloride 0.45% 1,000 ML IV SCH (08:45)
[2016-11-20] MEDS ORDERED: Cefepime 1 GM in Sodium Chloride 0.9% 100 ML IVPB SCH (09:00)
[2016-11-20] MEDS ORDERED: Enoxaparin 40 mg Syringe SC SCH (09:00)
--- NOTE | 2016-11-20 09:46 | CARD ---
APPROVED REPORT EKG Measurement Heart [id number] <Conclusion> Sinus tachycardia ST & T wave abnormality, consider lateral ischemia Abnormal ECG
[2016-11-20] MEDS ORDERED: MethylPREDNISolone 40 mg Vial ONE (10:00)
[2016-11-20] MEDS: methylPREDNISolone 40 MG in Sodium Chloride 0.9% 50 ML IV SCH ×2 (10:01→16:42)
[2016-11-20] MEDS: Enoxaparin 30 mg Syringe SC SCH (10:52)
--- NOTE | 2016-11-20 11:56 | CP.PCM.CON ---
History of Present Illness - History of Present Illness History of Present Illness: Infectious Disease Consultation Note- asked to see this patient at the request of hospitalist for pneumonia/sepsis HPI- The history is obtained from the medical chart and the breakfast and room attendant as pt. is intubated and lethargic and not responsive. Pt. is a 71 year old male from [facility] with PMH of DM II, HTN, A.fib who was brought to the hospital fos sob amd hypoxia and was intubated prior to arrival to the hospital. pt. currently is in ICU , intubated and not responsive and on pressors for BP support. pt's CXR not impressive, UA- neg but has leukocytosis. h/o e.fecalis bacteremia as per med records in 10/2016 and was treated with 21 days of IV vancomycin and he also had c.diff and was treated with oral metronidazole for this. PMH: Anemia, Dementia, DM II; HTN, HLD; CKD; Osteomyelitis of the right foot ; Avascular necrosis of the right hip; A Fib; PVD; PSH: unobtainable surgical hx Allergies: NKDA Review of Systems - Review of Systems Review of Systems: ROS- unable to obtain as pt. is nonresponsive. Past Patient History - Past Medical History & Family History Past Medical History?: Yes - Past Social History Smoking Status: Light Smoker < 10 Cigarettes Daily Chewing Tobacco Use: No Cigar Use: No Alcohol: Social Drugs: Denies Home Situation {Lives}: Detention - CARDIAC Hx Hypercholesterolemia: Yes Hx Hypertension: Yes Hx Peripheral Vascular Disease: Yes - PULMONARY Hx Respiratory Disorders: No - NEUROLOGICAL Hx Dementia: Yes - HEENT Hx HEENT Problems: No - RENAL Hx Chronic Kidney Disease: Yes - ENDOCRINE/METABOLIC Hx Endocrine Disorders: Yes Hx Diabetes Mellitus Type 2: Yes - HEMATOLOGICAL/ONCOLOGICAL Hx Anemia: Yes - INTEGUMENTARY Hx Dermatological Problems: No - MUSCULOSKELETAL/RHEUMATOLOGICAL Hx Musculoskeletal Disorders: Yes (R hip pain) Hx Falls: Yes Hx Osteomyelitis: Yes (R foot) Hx Unsteady Gait: Yes - GASTROINTESTINAL Hx Gastrointestinal Disorders: No - GENITOURINARY/GYNECOLOGICAL Hx Genitourinary Disorders: Yes Hx Urinary Tract Infection: Yes - PSYCHIATRIC Hx Psychophysiologic Disorder: No Hx Substance Use: No - SURGICAL HISTORY Hx Surgeries: No - ANESTHESIA Hx Anesthesia: No Hx Anesthesia Reactions: No Hx Malignant Hyperthermia: No Meds Allergies/Adverse Reactions: Allergies Allergy/AdvReac Type Severity Reaction Status Date / Time No Known Allergies Allergy Verified 10/05/16 16:18 - Medications Medications: Current Medications Acetaminophen (Tylenol 650 Mg Supp) 650 mg WI Q4 PRN PRN Reason: Fever >100.4 F Albuterol/Ipratropium (Duoneb 3 Mg/0.5 Mg (3 Ml) Ud) 3 ml INH RQID LARRY Enoxaparin Sodium (Lovenox) 30 mg SC DAILY LARRY PRN Reason: Protocol Last Admin: 11/20/16 10:52 Dose: Not Given Norepinephrine Bitartrate 8 mg (/ Dextrose) 258 mls @ 4.83 mls/hr IV .Q24H ONE ; 2.5 MCG/MIN PRN Reason: Protocol Stop: 11/21/16 03:05 Last Admin: 11/20/16 04:06 Dose: Not Given Vancomycin HCl 1 gm/ Sodium (Chloride) 250 mls @ 166.667 mls/hr IVPB DAILY [facility] Last Admin: 11/20/16 08:26 Dose: 166.667 mls/hr Norepinephrine Bitartrate 8 mg (/ Dextrose) 258 mls @ 4.83 mls/hr IV .Q24H ONE ; 2.5 MCG/MIN PRN Reason: Protocol Stop: 11/21/16 04:23 Last Admin: 11/20/16 05:17 Dose: 2.5 mcg/min, 4.83 mls/hr Cefepime HCl 1 gm/ Sodium (Chloride) 100 mls @ 100 mls/hr IVPB Q8 [facility] Last Admin: 11/20/16 08:26 Dose: 100 mls/hr Sodium Chloride (Sodium Chloride 0.9%) 1,000 mls @ 150 mls/hr IV .Q6H40M [facility] Stop: 11/21/16 04:30 Sodium Chloride (Sodium Chloride 0.45%) 1,000 mls @ 40 mls/hr IV .Q24H [facility] Stop: 11/21/16 08:44 Last Admin: 11/20/16 09:57 Dose: 40 mls/hr Methylprednisolone 40 mg/ (Sodium Chloride) 50 mls @ 100 mls/hr IV Q8 [facility] Last Admin: 11/20/16 10:01 Dose: 100 mls/hr Pantoprazole Sodium (Protonix Inj) 40 mg IVP DAILY [facility] Last Admin: 11/20/16 10:00 Dose: 40 mg Physical Exam - Constitutional Appears: Chronically Ill Additional comments: intubated and not responsive - Head Exam Head Exam: ATRAUMATIC - ENT Exam Additional comments: ET tube and OG tube in place - Neck Exam Neck exam: Positive for: Full Rom - Respiratory Exam Additional comments: some scattered coarse breath sounds b/l - Cardiovascular Exam Cardiovascular Exam: RRR, +S1, +S2 - GI/Abdominal Exam GI & Abdominal Exam: Normal Bowel Sounds, Soft Additional comments: ND, NT - Extremities Exam Additional comments: unstageable b/l heel ulcers right third toe s/p amputation no discharge - Neurological Exam Additional comments: lethargic and not resposnsive - Skin Additional comments: sacral pressure ulcer unstageable Results - Vital Signs Recent Vital Signs: Last Vital Signs Temp 98.3 F 11/20/16 08:00 Pulse 103 H 11/20/16 11:00 Resp 20 11/20/16 11:00 BP 127/63 11/20/16 11:00 Pulse Ox 100 11/20/16 11:00 - Labs Result Diagrams: 11/20/16 12:00 11/20/16 12:00 Labs: Laboratory Results - last 24 hr 11/20/16 11/20/16 11/20/16 01:40 01:40 01:57 WBC 15.9 H RBC 3.35 L Hgb 10.0 L Hct 31.4 L MCV 93.6 MCH 29.8 MCHC 31.8 L RDW 16.3 H Plt Count 159 MPV 9.3 Neut % (Auto) 84.6 H Lymph % (Auto) 12.5 L [place] % (Auto) 2.3 Eos % (Auto) 0.2 Baso % (Auto) 0.4 Neut # 13.4 H Lymph # 2.0 [place] # 0.4 Eos # 0.0 Baso # 0.1 pCO2 pO2 HCO3 ABG pH ABG Total CO2 ABG O2 Saturation ABG Base Excess Torres Test ABG Potassium VBG pH VBG pCO2 VBG HCO3 VBG Total CO2 VBG O2 Sat (Calc) VBG Base Excess VBG Potassium A-a O2 Difference Glucose Lactate Vent Mode Mechanical Rate FiO2 Tidal Volume PEEP Crit Value Called To Crit Value Called By Crit Value Read Back Blood Gas Notified Time Sodium 146 Potassium 5.7 H Chloride 118 H Carbon Dioxide 19 L Anion Gap 15 BUN 32 H Creatinine 1.6 H Est GFR ( Amer) 52 Est GFR (Non-Af Amer) 43 POC Glucose (mg/dL) Random Glucose 170 H Calcium 7.5 L Troponin I 0.0580 NT-Pro-B Natriuret Pep 4060 H Arterial Blood Potassium Venous Blood Potassium Urine Color Yellow Urine Clarity Clear Urine pH 5.0 Ur Specific [place] 1.013 Urine Protein Negative Urine Glucose (UA) Neg Urine Ketones Negative Urine Blood Small Urine Nitrate Negative Urine Bilirubin Negative Urine Urobilinogen 0.2-1.0 Ur Leukocyte Esterase Neg Urine RBC (Auto) 43 H Urine Microscopic WBC 2 Ur Squamous Epith Cells < 1 Urine Bacteria Rare 11/20/16 11/20/16 11/20/16 02:24 04:52 11:06 WBC RBC Hgb Hct MCV MCH MCHC RDW Plt Count MPV Neut % (Auto) Lymph % (Auto) [place] % (Auto) Eos % (Auto) Baso % (Auto) Neut # Lymph # [place] # Eos # Baso # pCO2 76 H* pO2 66 L 45 HCO3 17.6 L ABG pH 7.08 L* ABG Total CO2 24.8 ABG O2 Saturation 93.3 L ABG Base Excess -8.9 L Torres Test Yes ABG Potassium 4.3 VBG pH 7.23 L VBG pCO2 49 VBG HCO3 18.6 VBG Total CO2 22.0 VBG O2 Sat (Calc) 82.9 H VBG Base Excess -7.2 L VBG Potassium 3.9 A-a O2 Difference 552.0 Glucose 199 H 189 H Lactate 1.3 1.4 Vent Mode A/c Mechanical Rate 12 FiO2 100.0 21.0 Tidal Volume 500 PEEP 5 Crit Value Called To John wyatt md Crit Value Called By 6090 Crit Value Read Back Y Blood Gas Notified Time 227 Sodium 146.0 148.0 Potassium Chloride 120.0 H 120.0 H Carbon Dioxide Anion Gap BUN Creatinine Est GFR ( Amer) Est GFR (Non-Af Amer) POC Glucose (mg/dL) 166 H Random Glucose Calcium Troponin I NT-Pro-B Natriuret Pep Arterial Blood Potassium 4.3 Venous Blood Potassium 3.9 Urine Color Urine Clarity Urine pH Ur Specific [place] Urine Protein Urine Glucose (UA) Urine Ketones Urine Blood Urine Nitrate Urine Bilirubin Urine Urobilinogen Ur Leukocyte Esterase Urine RBC (Auto) Urine Microscopic WBC Ur Squamous Epith Cells Urine Bacteria Microbiology 10/06/16 13:10 Blood Blood Culture - Final 10/06/16 13:10 Blood Gram Stain - Final NO GROWTH AFTER 5 DAYS TEST NOT PERFORMED 10/05/16 19:09 Urine,Triplett Urine Culture - Final No Growth (<1,000 CFU/ML) 10/05/16 18:49 Blood S.aureus & Coag-Neg Staph PNA FISH - Final 10/05/16 18:49 Blood Gram Stain - Final Enterococcus Faecalis Assessment & Plan (1) Respiratory failure Status: Acute (2) Septic shock Status: Acute (3) GEORGINA (acute kidney injury) Status: Acute (4) Leukocytosis Status: Acute - Assessment and Plan (Free Text) Assessment: A?p- 71 year old male from [place] with multiple medical conditions including DM II, HTN, previous e.fecalis bacteremia in 10/2016, h/o right third toe amputation for OM admitted with sob and hypoxemia and is intubated and on pressors. the etiology of the sepsis could be multifactorial . CXR not very impressive but it could be lagging behind. ? aspiration Pneumonitis is a possibility. UA - negative and hence source less likely. in light of h/o previous bacteremia and now heel ulcers and previous OM in 2016 would advise to cover for both gram negatives and for staph and gram positives. would also advise to check stool for c.diff . 1.hypoxemia 2.respiratory failure/intubated 3.leukocytosis 4.IZABELLA 5.sepsis Plan- check blood cx x 2. check urine cx. advise to place on IV vancomycin (renal dose) , keep trough <15. also advise to place pt. on IV zosyn for broad spectrum gram neg coverage. check stool c.diff. wound consult for the heel and sacral wounds (unstagebale). prognosis guarded. Thank you for allowing me to take part in the care of this patient. d/w Machine Baster. ICU time 60 minutes.
[2016-11-20 12:35] LABS: BASO # 0.1 K/uL (0.0-0.2); BASO % 0.5 % (0.0-2.0); HEMATOCRIT 30.8 % (35.0-51.0); LYMPH % 11.4 % (20.0-40.0); MEAN CELL VOLUME 95.1 fl (80.0-94.0); MEAN CORPUSCULAR HGB CONC 31.5 g/dL (33.0-37.0); MEAN PLATELET VOLUME 10.2 fl (7.2-11.7); MONO # 0.7 K/uL (0.0-0.8); MONO % 4.1 % (0.0-10.0); NEUT # 14.8 K/uL (1.8-7.0); RED CELL DISTRIBUTION WIDTH 16.9 % (11.5-14.5); WHITE BLOOD COUNT 17.6 K/uL (4.8-10.8)
[2016-11-20 12:42] LABS: CALCIUM 7.4 mg/dL (8.4-10.2); POTASSIUM 3.7 MMOL/L (3.6-5.0)
[2016-11-20] MEDS: Albuterol-Ipratrop 3 mg / 0.5 (3 ml) UD INH SCH ×2 (15:39→19:05)
[2016-11-20] MEDS ORDERED: Piperacillin/Tazobact 3.375 GM in Sodium Chloride 0.9% 100 ML IVPB SCH (16:00)
--- NOTE | 2016-11-20 16:38 | RAD ---
HISTORY: follow up pulmonary congestion COMPARISON: Comparison chest 11/20/2016 at 0146 hours FINDINGS: LUNGS: There has been interval progression of mild pulmonary vascular congestion/ CHF with left-sided effusion. . Suspect early bilateral lower lobe alveolar-type infiltrates left greater than right Questionable tiny right effusion. In situ ETT, tip of which lies approximately 6.7 cm above shira. NGT is present, the tip of which lines right upper quadrant of the abdomen. PLEURA: No significant pleural effusion identified, no pneumothorax apparent. CARDIOVASCULAR: Heart size unchanged OSSEOUS STRUCTURES: No significant abnormalities. VISUALIZED UPPER ABDOMEN: Normal. OTHER FINDINGS: None. IMPRESSION: Pulmonary vascular congestive changes have progressed since prior study. The small left-sided effusion with what probably represents early bilateral lower lobe alveolar-type infiltrates left greater than right
[2016-11-20] MEDS: Piperacillin/Tazobact 3.375 GM in Sodium Chloride 0.9% 100 ML IVPB SCH (16:43)
--- NOTE | 2016-11-20 16:55 | RAD ---
PROCEDURE: CHEST RADIOGRAPH, 1 VIEW HISTORY: intubated COMPARISON: Comparison chest 10/09/2016 FINDINGS: LUNGS: In situ endotracheal tube, tip of which lies approximately 8.4 cm above shira. There is a vague linear opacity seen in the right upper lobe bordering the minor fissure with patchy opacity in the right mid lower lung field. Findings suggest developing infiltrates. In addition, there is also patchy opacity left lower lobe that may represent infiltrate and effusion as well. PLEURA: No pneumothorax or pleural fluid seen. CARDIOVASCULAR: Normal. OSSEOUS STRUCTURES: No significant abnormalities. VISUALIZED UPPER ABDOMEN: Normal. OTHER FINDINGS: None. IMPRESSION: . ETT as above. There is a vague linear opacity seen in the right upper lobe bordering the minor fissure with patchy opacity in the right mid lower lung field. Findings suggest developing infiltrates. In addition, there is also patchy opacity left lower lobe that may represent infiltrate and effusion as well. Note this report was placed in PA review folder for followup.
--- NOTE | 2016-11-20 16:58 | CP.PCM.HP ---
History of Present Illness - History of Present Illness History of Present Illness: CC: Respiratory Distress. 71 y/o M, resident at [facility], brought to ER [facility] via EMS due to severe SOB associate to hypoxia on DOA with no relief, Pt was orally intubated in the NH and upon evaluation in the ED was admitted to ICU unit. Worsening symptom: Pt became Hypotensive while in the ER, a central line was inserted. TMAx: 102.3 HR: 106 Aggravated factor: Dementia, limited medical information 2nd to intubating/ critical condition. PMHx from previous records: HTN, A Fib, Dyslipidemia, DMII, DM Neuropathy, Renal Insufficiency, PVD, anemia, Dementia, Osteomyelitis R foot bone base on 2015, Avascular Necrosis R Hip, Hx falls, Alcohol abuse. EKG shows: Sinus tachycardia, ST and T wave abnormality, consider lateral Ischemia. CXR on 11/20/16 shows: Pulmonary vascular congestive changes, progressed since prior study. Small L sided effusion with what probably represents early b/l left lobe alveolar-type infiltrates L > R. Present on Admission - Present on Admission Any Indicators Present on Admission: Yes History of Uncontrolled Diabetes: Yes Review of Systems - Review of Systems Systems not reviewed;Unavailable: Acuity of Condition, Respiratory Distress, Intubated Past Patient History - Past Medical History & Family History Past Medical History?: Yes Pertinent Family History: Unknown - Past Social History Smoking Status: Light Smoker < 10 Cigarettes Daily Chewing Tobacco Use: No Cigar Use: No Alcohol: Social Drugs: Denies Home Situation {Lives}: [facility] - CARDIAC Hx Cardiac Disorders: Yes Hx Atrial Fibrillation: Yes Hx Hypercholesterolemia: Yes Hx Hypertension: Yes Hx Peripheral Vascular Disease: Yes - PULMONARY Hx Respiratory Disorders: No - NEUROLOGICAL Hx Neurological Disorder: Yes Hx Dementia: Yes - HEENT Hx HEENT Problems: No - RENAL Hx Chronic Kidney Disease: Yes - ENDOCRINE/METABOLIC Hx Endocrine Disorders: Yes Hx Diabetes Mellitus Type 2: Yes - HEMATOLOGICAL/ONCOLOGICAL Hx Blood Disorders: Yes Hx Anemia: Yes - INTEGUMENTARY Hx Dermatological Problems: No - MUSCULOSKELETAL/RHEUMATOLOGICAL Hx Musculoskeletal Disorders: Yes (R hip pain) Hx Falls: Yes Hx Osteomyelitis: Yes (R foot) Hx Unsteady Gait: Yes - GASTROINTESTINAL Hx Gastrointestinal Disorders: No - GENITOURINARY/GYNECOLOGICAL Hx Genitourinary Disorders: Yes Hx Urinary Tract Infection: Yes - PSYCHIATRIC Hx Psychophysiologic Disorder: No Hx Substance Use: No - SURGICAL HISTORY Hx Surgeries: No - ANESTHESIA Hx Anesthesia: No Hx Anesthesia Reactions: No Hx Malignant Hyperthermia: No Meds Allergies/Adverse Reactions: Allergies Allergy/AdvReac Type Severity Reaction Status Date / Time No Known Allergies Allergy Verified 10/05/16 16:18 Physical Exam - Constitutional Appears: Chronically Ill - Head Exam Head Exam: NORMAL INSPECTION - Eye Exam Eye Exam: PERRL - ENT Exam Additional comments: Intubated and OG tube in place. - Neck Exam Neck exam: Positive for: Normal Inspection - Respiratory Exam Respiratory Exam: Decreased Breath Sounds (b/l) Additional comments: Crackles at bases - Cardiovascular Exam Cardiovascular Exam: Tachycardia - GI/Abdominal Exam GI & Abdominal Exam: Normal Bowel Sounds, Soft - Extremities Exam Additional comments: Multiple unstageable ulcers: B/L heels, R lateral and medial ankle, R lateral foot. Pressure ulcer R hip. R Third toe s/p amputation. - Back Exam Additional comments: Sacral pressure ulcer unstageable, R buttock. - Neurological Exam Additional comments: Intubated, lethargic, open eyes to deep painful stimuli. - Psychiatric Exam Additional comments: Sedated - Skin Skin Exam: Warm Results - Vital Signs Recent Vital Signs: Last Vital Signs Temp 101.7 F H 11/20/16 16:00 Pulse 99 H 11/20/16 16:00 Resp 26 H 11/20/16 16:00 BP 111/54 L 11/20/16 16:00 Pulse Ox 99 11/20/16 16:00 reviewed Shon - Labs Result Diagrams: 11/29/16 12:56 11/29/16 12:56 Labs: Laboratory Results - last 24 hr 11/20/16 11/20/16 11/20/16 01:40 01:40 01:57 WBC 15.9 H RBC 3.35 L Hgb 10.0 L Hct 31.4 L MCV 93.6 MCH 29.8 MCHC 31.8 L RDW 16.3 H Plt Count 159 MPV 9.3 Neut % (Auto) 84.6 H Lymph % (Auto) 12.5 L [place] % (Auto) 2.3 Eos % (Auto) 0.2 Baso % (Auto) 0.4 Neut # 13.4 H Lymph # 2.0 [place] # 0.4 Eos # 0.0 Baso # 0.1 pCO2 pO2 HCO3 ABG pH ABG Total CO2 ABG O2 Saturation ABG Base Excess Torres Test ABG Potassium VBG pH VBG pCO2 VBG HCO3 VBG Total CO2 VBG O2 Sat (Calc) VBG Base Excess VBG Potassium A-a O2 Difference Glucose Lactate Vent Mode Mechanical Rate FiO2 Tidal Volume PEEP Crit Value Called To Crit Value Called By Crit Value Read Back Blood Gas Notified Time Sodium 146 Potassium 5.7 H Chloride 118 H Carbon Dioxide 19 L Anion Gap 15 BUN 32 H Creatinine 1.6 H Est GFR ( Amer) 52 Est GFR (Non-Af Amer) 43 POC Glucose (mg/dL) Random Glucose 170 H Calcium 7.5 L Troponin I 0.0580 NT-Pro-B Natriuret Pep 4060 H Arterial Blood Potassium Venous Blood Potassium Urine Color Yellow Urine Clarity Clear Urine pH 5.0 Ur Specific [place] 1.013 Urine Protein Negative Urine Glucose (UA) Neg Urine Ketones Negative Urine Blood Small Urine Nitrate Negative Urine Bilirubin Negative Urine Urobilinogen 0.2-1.0 Ur Leukocyte Esterase Neg Urine RBC (Auto) 43 H Urine Microscopic WBC 2 Ur Squamous Epith Cells < 1 Urine Bacteria Rare 11/20/16 11/20/16 11/20/16 02:24 04:52 11:06 WBC RBC Hgb Hct MCV MCH MCHC RDW Plt Count MPV Neut % (Auto) Lymph % (Auto) [place] % (Auto) Eos % (Auto) Baso % (Auto) Neut # Lymph # [place] # Eos # Baso # pCO2 76 H* pO2 66 L 45 HCO3 17.6 L ABG pH 7.08 L* ABG Total CO2 24.8 ABG O2 Saturation 93.3 L ABG Base Excess -8.9 L Torres Test Yes ABG Potassium 4.3 VBG pH 7.23 L VBG pCO2 49 VBG HCO3 18.6 VBG Total CO2 22.0 VBG O2 Sat (Calc) 82.9 H VBG Base Excess -7.2 L VBG Potassium 3.9 A-a O2 Difference 552.0 Glucose 199 H 189 H Lactate 1.3 1.4 Vent Mode A/c Mechanical Rate 12 FiO2 100.0 21.0 Tidal Volume 500 PEEP 5 Crit Value Called To John wyatt md Crit Value Called By [id number] Crit Value Read Back Y Blood Gas Notified Time 227 Sodium 146.0 148.0 Potassium Chloride 120.0 H 120.0 H Carbon Dioxide Anion Gap BUN Creatinine Est GFR ( Amer) Est GFR (Non-Af Amer) POC Glucose (mg/dL) 166 H Random Glucose Calcium Troponin I NT-Pro-B Natriuret Pep Arterial Blood Potassium 4.3 Venous Blood Potassium 3.9 Urine Color Urine Clarity Urine pH Ur Specific [place] Urine Protein Urine Glucose (UA) Urine Ketones Urine Blood Urine Nitrate Urine Bilirubin Urine Urobilinogen Ur Leukocyte Esterase Urine RBC (Auto) Urine Microscopic WBC Ur Squamous Epith Cells Urine Bacteria 11/20/16 11/20/16 11/20/16 12:00 12:00 16:39 WBC 17.6 H RBC 3.24 L Hgb 9.7 L Hct 30.8 L MCV 95.1 H MCH 30.0 MCHC 31.5 L RDW 16.9 H Plt Count 143 MPV 10.2 Neut % (Auto) 84.0 H Lymph % (Auto) 11.4 L [place] % (Auto) 4.1 Eos % (Auto) 0.0 Baso % (Auto) 0.5 Neut # 14.8 H Lymph # 2.0 [place] # 0.7 Eos # 0.0 Baso # 0.1 pCO2 pO2 HCO3 ABG pH ABG Total CO2 ABG O2 Saturation ABG Base Excess Torres Test ABG Potassium VBG pH VBG pCO2 VBG HCO3 VBG Total CO2 VBG O2 Sat (Calc) VBG Base Excess VBG Potassium A-a O2 Difference Glucose Lactate Vent Mode Mechanical Rate FiO2 Tidal Volume PEEP Crit Value Called To Crit Value Called By Crit Value Read Back Blood Gas Notified Time Sodium 150 H Potassium 3.7 Chloride 121 H Carbon Dioxide 16 L Anion Gap 17 BUN 35 H Creatinine 1.7 H Est GFR ( Amer) 48 Est GFR (Non-Af Amer) 40 POC Glucose (mg/dL) 206 H Random Glucose 133 H Calcium 7.4 L Troponin I NT-Pro-B Natriuret Pep Arterial Blood Potassium Venous Blood Potassium Urine Color Urine Clarity Urine pH Ur Specific [place] Urine Protein Urine Glucose (UA) Urine Ketones Urine Blood Urine Nitrate Urine Bilirubin Urine Urobilinogen Ur Leukocyte Esterase Urine RBC (Auto) Urine Microscopic WBC Ur Squamous Epith Cells Urine Bacteria reviewed J.P. - EKG Data EKG comments: reviewed J.P. - Imaging and Cardiology Chest x-ray Status: Report reviewed by me (J.P.) Assessment & Plan (1) Acute hypercapnic respiratory failure Status: Acute Priority: High (2) Dehydration Status: Acute Priority: High (3) Pneumonia Status: Acute Priority: High (4) Septic shock Status: Resolved Priority: High (5) Hyperkalemia Status: Acute Priority: High (6) GEORGINA (acute kidney injury) Status: Acute Priority: High (7) Type 2 diabetes mellitus with hyperglycemia Status: Chronic Priority: High (8) HTN (hypertension) Status: Chronic Priority: Medium - Assessment and Plan (Free Text) Plan: F/U Blood and U C-S, MRSA Screening. Continue with Vanco, Zosyn, IV fluid, Duoneb, Solumedrol. ID consult appreciated. ICU Time: 70 min. - Date & Time Date: 11/20/16 Time: 12:00
[2016-11-20] MEDS: Acetaminophen 650mg/20.3ml solution UD PO PRN (17:02)
[2016-11-21] MEDS: methylPREDNISolone 40 MG in Sodium Chloride 0.9% 50 ML IV SCH (00:17)
[2016-11-21] MEDS: Piperacillin/Tazobact 3.375 GM in Sodium Chloride 0.9% 100 ML IVPB SCH ×3 (00:18→16:28)
[2016-11-21 05:36] LABS: ABG ALLEN TEST YES; ABG MECHANICAL RATE 16; ARTERIAL BLOOD GAS HCO3 20.1 mmol/L (21-28); ARTERIAL BLOOD GAS MODE A/C; ARTERIAL BLOOD GAS O2 CAPACITY 11.7 mL/dL (16-24); ARTERIAL BLOOD GAS O2 CONTENT 11.8 ML/dL (15-23); ARTERIAL BLOOD GAS PH 7.44 (7.35-7.45); ARTERIAL BLOOD GAS PO2 113 mm/Hg (80-100); ARTERIAL BLOOD HGB O2 SAT 97.8 % (95.0-98.0); CARBOXYHEMOGLOBIN 1.4 % (0.5-1.5); HHB -0.7 % (0.0-5.0); METHEMOGLOBIN 1.5 % (0.0-3.0)
--- NOTE | 2016-11-21 08:06 | CP.CCUPN ---
CCU Subjective - Physician Review Subjective (Free Text): Lethargic, partially opens eyes to tactile stimulus, not responding to verbal stimuli, orally intubated, day #2 on MV, breathing 21 on AC 16, TV 500ml, PEEP 0 , and 60% FiO2, SPO2 100%. Febrile to 101.7F yesterday afternoon, overall T max was 102.3F. On low dose Levophed at 2.5 mcg/min, and IVF half saline at 40 ml/hr. ROS: unobtainable, intubated patient. Other PMSFH: All recent nursing and physician documentation reviewed and no new information noted relevant to current problems. MAJOR IMPRESSIONS: 1. Acute Hypoxemic, Hypercapneic Resp Failure 2' Pneumonia 2. Metabolic Encephalopathy with underlying Dementia 3. Hypernatremia / Azotemia 4. Chronic disease Anemia PLAN: 1. Order Sputum cx now, none nor any specimens seen in Micro Lab so far. 2. Empiric Abx coverage as per ID. 3. ECHO for LVEF. Follow Serial Lactates , SVO2. Clinically still appears dehydrated, will change IVFs to LR for now to restore volume and allow weans off Levophed. 4. CT Brain if no improvement in neuromental status as hemodynamics improve. 5. Try decreasing FiO2 to 50%. No MV weans anticipated today till hemodynamics improve. There is no h/o COPD nor any hyperactive airways disease , no clinical wheezing evident; would discontinue steroids. 6. Add free water to tube feeds. 7. Maintain normoglycemia. Time spent with this patient did not overlap with any other provider's medical or critical care time. Additionally the code selected for the services rendered in this note includes the time spent: talking to the patients family, associated physicians and reviewing hospital data/results not listed here which extended to a total of 40 minutes. CCU Objective - Vital Signs / Intake & Output Vital Signs (Last 4 hours): Vital Signs Temp Pulse Resp BP Pulse Ox 11/21/16 06:11 75 22 125/53 L 99 11/21/16 05:00 83 26 H 128/77 99 11/21/16 04:00 99.8 F H 77 22 118/56 L 100 Intake and Output (Last 8hrs): Intake & Output 11/20/16 11/21/16 11/21/16 22:59 06:59 14:59 Intake Total 819 670 Output Total 25 200 Balance 794 470 Intake: IV 329 280 Intake, Piggyback 100 150 Oral 60 Tube Feeding 180 240 Free Water Flush 150 Output: Urine 25 200 Urethral (Triplett) 25 200 Other: # Bowel Movements 1 - Physical Exam Head: Positive for: Normocephalic Pupils: Positive for: PERRL Extroacular Muscles: Positive for: EOMI. Negative for: Gaze Palsy Conjunctiva: Negative for: Injected, Icteric Mouth: Positive for: Moist Mucous Membranes Neck: Negative for: Meningeal Signs, JVD, Lymphadenopathy Respiratory/Chest: Positive for: Decreased Breath Sounds. Negative for: Wheezes , Rhonchi Cardiovascular: Positive for: Regular Rate and Rhythm. Negative for: Murmurs, Rub Abdomen: Positive for: Normal Bowel Sounds. Negative for: Tenderness, Distention Lower Extremity: Positive for: Edema. Negative for: CALF TENDERNESS, Cyanosis Neurological: Positive for: Norm Deep Tendon Reflexes Skin: Positive for: Warm. Negative for: Rashes Psychiatric: Positive for: Lethargic - Medications Active Medications: Active Medications Generic Name Dose Route Start Last Admin Trade Name Freq PRN Reason Stop Dose Admin Acetaminophen 650 mg 11/20/16 04:49 Tylenol 650 Mg Supp NJ Q4 PRN Fever >100.4 F Acetaminophen 650 mg 11/20/16 16:46 11/20/16 17:02 Tylenol 650mg/20.3ml Solution Ud PO 650 mg Q4 PRN Administration Temperature Albuterol/Ipratropium 3 ml 11/20/16 12:00 11/20/16 19:05 Duoneb 3 Mg/0.5 Mg (3 Ml) Ud INH 3 ml RQID LARRY Administration Enoxaparin Sodium 30 mg 11/20/16 09:00 11/20/16 10:52 Lovenox SC Not Given DAILY LARRY Protocol Vancomycin HCl 1 gm/ Sodium 250 mls @ 166.667 mls/hr 11/20/16 09:00 11/20/16 08:26 Chloride IVPB 166.667 mls/hr DAILY LARRY Administration Sodium Chloride 1,000 mls @ 40 mls/hr 11/20/16 08:45 11/20/16 09:57 Sodium Chloride 0.45% IV 11/21/16 08:44 40 mls/hr .Q24H LARRY Administration Methylprednisolone 40 mg/ 50 mls @ 100 mls/hr 11/20/16 09:00 11/21/16 00:17 Sodium Chloride IV 100 mls/hr Q8 LARRY Administration Piperacillin Sod/Tazobactam 100 mls @ 100 mls/hr 11/20/16 17:00 11/21/16 00: 18 Sod 3.375 gm/ Sodium Chloride IVPB 100 mls/hr Q8 LARRY Administration Pantoprazole Sodium 40 mg 11/20/16 09:00 11/20/16 10:00 Protonix Inj IVP 40 mg DAILY LARRY Administration - Patient Studies Lab Studies: Lab Studies 11/21/16 11/21/16 11/20/16 Range/Units 05:32 05:31 23:18 WBC (4.8-10.8) K/uL RBC (4.40-5.90) Mil/uL Hgb (12.0-18.0) g/dL Hct (35.0-51.0) % MCV (80.0-94.0) fl MCH (27.0-31.0) pg MCHC (33.0-37.0) g/dL RDW (11.5-14.5) % Plt Count (130-400) K/uL MPV (7.2-11.7) fl Neut % (Auto) (50.0-75.0) % Lymph % (Auto) (20.0-40.0) % Whitfield % (Auto) (0.0-10.0) % Eos % (Auto) (0.0-4.0) % Baso % (Auto) (0.0-2.0) % Neut # (1.8-7.0) K/uL Lymph # (1.0-4.3) K/uL Whitfield # (0.0-0.8) K/uL Eos # (0.0-0.7) K/uL Baso # (0.0-0.2) K/uL pCO2 25 L (35-45) mm/Hg pO2 113 H (80-100) mm/Hg HCO3 20.1 L (21-28) mmol/L ABG pH 7.44 (7.35-7.45) ABG Total CO2 17.8 L (22-28) mmol/L ABG O2 Saturation 100.7 H (95-98) % ABG O2 Content 11.8 L (15-23) ML/dL ABG Base Excess -6.2 L (-2.0-3.0) mmol/L ABG Hemoglobin 8.4 L (11.7-17.4) g/dL ABG Carboxyhemoglobin 1.4 (0.5-1.5) % POC ABG HHb (Measured) -0.7 L (0.0-5.0) % ABG Methemoglobin 1.5 (0.0-3.0) % ABG O2 Capacity 11.7 L (16-24) mL/dL Torres Test Yes A-a O2 Difference 284.0 mm/Hg Hgb O2 Saturation 97.8 (95.0-98.0) % Vent Mode A/c Mechanical Rate 16 FiO2 60.0 % Tidal Volume 500 Sodium (132-148) mmol/l Potassium (3.6-5.0) MMOL/L Chloride (98-107) mmol/L Carbon Dioxide (22-30) mmol/L Anion Gap (10-20) BUN (9-20) mg/dl Creatinine (0.8-1.5) mg/dL Est GFR ( Amer) Est GFR (Non-Af Amer) POC Glucose (mg/dL) 357 H 301 H (65-110) mg/dL Random Glucose (75-110) mg/dL Calcium (8.4-10.2) mg/dL 11/20/16 11/20/16 11/20/16 Range/Units 16:39 12:00 12:00 WBC 17.6 H (4.8-10.8) K/uL RBC 3.24 L (4.40-5.90) Mil/uL Hgb 9.7 L (12.0-18.0) g/dL Hct 30.8 L (35.0-51.0) % MCV 95.1 H (80.0-94.0) fl MCH 30.0 (27.0-31.0) pg MCHC 31.5 L (33.0-37.0) g/dL RDW 16.9 H (11.5-14.5) % Plt Count 143 (130-400) K/uL MPV 10.2 (7.2-11.7) fl Neut % (Auto) 84.0 H (50.0-75.0) % Lymph % (Auto) 11.4 L (20.0-40.0) % Whitfield % (Auto) 4.1 (0.0-10.0) % Eos % (Auto) 0.0 (0.0-4.0) % Baso % (Auto) 0.5 (0.0-2.0) % Neut # 14.8 H (1.8-7.0) K/uL Lymph # 2.0 (1.0-4.3) K/uL Whitfield # 0.7 (0.0-0.8) K/uL Eos # 0.0 (0.0-0.7) K/uL Baso # 0.1 (0.0-0.2) K/uL pCO2 (35-45) mm/Hg pO2 (80-100) mm/Hg HCO3 (21-28) mmol/L ABG pH (7.35-7.45) ABG Total CO2 (22-28) mmol/L ABG O2 Saturation (95-98) % ABG O2 Content (15-23) ML/dL ABG Base Excess (-2.0-3.0) mmol/L ABG Hemoglobin (11.7-17.4) g/dL ABG Carboxyhemoglobin (0.5-1.5) % POC ABG HHb (Measured) (0.0-5.0) % ABG Methemoglobin (0.0-3.0) % ABG O2 Capacity (16-24) mL/dL Torres Test A-a O2 Difference mm/Hg Hgb O2 Saturation (95.0-98.0) % Vent Mode Mechanical Rate FiO2 % Tidal Volume Sodium 150 H (132-148) mmol/l Potassium 3.7 (3.6-5.0) MMOL/L Chloride 121 H (98-107) mmol/L Carbon Dioxide 16 L (22-30) mmol/L Anion Gap 17 (10-20) BUN 35 H (9-20) mg/dl Creatinine 1.7 H (0.8-1.5) mg/dL Est GFR ( Amer) 48 Est GFR (Non-Af Amer) 40 POC Glucose (mg/dL) 206 H (65-110) mg/dL Random Glucose 133 H (75-110) mg/dL Calcium 7.4 L (8.4-10.2) mg/dL 11/20/16 Range/Units 11:06 WBC (4.8-10.8) K/uL RBC (4.40-5.90) Mil/uL Hgb (12.0-18.0) g/dL Hct (35.0-51.0) % MCV (80.0-94.0) fl MCH (27.0-31.0) pg MCHC (33.0-37.0) g/dL RDW (11.5-14.5) % Plt Count (130-400) K/uL MPV (7.2-11.7) fl Neut % (Auto) (50.0-75.0) % Lymph % (Auto) (20.0-40.0) % Whitfield % (Auto) (0.0-10.0) % Eos % (Auto) (0.0-4.0) % Baso % (Auto) (0.0-2.0) % Neut # (1.8-7.0) K/uL Lymph # (1.0-4.3) K/uL Whitfield # (0.0-0.8) K/uL Eos # (0.0-0.7) K/uL Baso # (0.0-0.2) K/uL pCO2 (35-45) mm/Hg pO2 (80-100) mm/Hg HCO3 (21-28) mmol/L ABG pH (7.35-7.45) ABG Total CO2 (22-28) mmol/L ABG O2 Saturation (95-98) % ABG O2 Content (15-23) ML/dL ABG Base Excess (-2.0-3.0) mmol/L ABG Hemoglobin (11.7-17.4) g/dL ABG Carboxyhemoglobin (0.5-1.5) % POC ABG HHb (Measured) (0.0-5.0) % ABG Methemoglobin (0.0-3.0) % ABG O2 Capacity (16-24) mL/dL Torres Test A-a O2 Difference mm/Hg Hgb O2 Saturation (95.0-98.0) % Vent Mode Mechanical Rate FiO2 % Tidal Volume Sodium (132-148) mmol/l Potassium (3.6-5.0) MMOL/L Chloride (98-107) mmol/L Carbon Dioxide (22-30) mmol/L Anion Gap (10-20) BUN (9-20) mg/dl Creatinine (0.8-1.5) mg/dL Est GFR ( Amer) Est GFR (Non-Af Amer) POC Glucose (mg/dL) 166 H (65-110) mg/dL Random Glucose (75-110) mg/dL Calcium (8.4-10.2) mg/dL Laboratory Results - last 24 hr 11/20/16 11/20/16 11/20/16 11:06 12:00 12:00 WBC 17.6 H RBC 3.24 L Hgb 9.7 L Hct 30.8 L MCV 95.1 H MCH 30.0 MCHC 31.5 L RDW 16.9 H Plt Count 143 MPV 10.2 Neut % (Auto) 84.0 H Lymph % (Auto) 11.4 L Whitfield % (Auto) 4.1 Eos % (Auto) 0.0 Baso % (Auto) 0.5 Neut # 14.8 H Lymph # 2.0 Whitfield # 0.7 Eos # 0.0 Baso # 0.1 pCO2 pO2 HCO3 ABG pH ABG Total CO2 ABG O2 Saturation ABG O2 Content ABG Base Excess ABG Hemoglobin ABG Carboxyhemoglobin POC ABG HHb (Measured) ABG Methemoglobin ABG O2 Capacity Torres Test A-a O2 Difference Hgb O2 Saturation Vent Mode Mechanical Rate FiO2 Tidal Volume Sodium 150 H Potassium 3.7 Chloride 121 H Carbon Dioxide 16 L Anion Gap 17 BUN 35 H Creatinine 1.7 H Est GFR ( Amer) 48 Est GFR (Non-Af Amer) 40 POC Glucose (mg/dL) 166 H Random Glucose 133 H Calcium 7.4 L 11/20/16 11/20/16 11/21/16 16:39 23:18 05:31 WBC RBC Hgb Hct MCV MCH MCHC RDW Plt Count MPV Neut % (Auto) Lymph % (Auto) Whitfield % (Auto) Eos % (Auto) Baso % (Auto) Neut # Lymph # Whitfield # Eos # Baso # pCO2 25 L pO2 113 H HCO3 20.1 L ABG pH 7.44 ABG Total CO2 17.8 L ABG O2 Saturation 100.7 H ABG O2 Content 11.8 L ABG Base Excess -6.2 L ABG Hemoglobin 8.4 L ABG Carboxyhemoglobin 1.4 POC ABG HHb (Measured) -0.7 L ABG Methemoglobin 1.5 ABG O2 Capacity 11.7 L Torres Test Yes A-a O2 Difference 284.0 Hgb O2 Saturation 97.8 Vent Mode A/c Mechanical Rate 16 FiO2 60.0 Tidal Volume 500 Sodium Potassium Chloride Carbon Dioxide Anion Gap BUN Creatinine Est GFR ( Amer) Est GFR (Non-Af Amer) POC Glucose (mg/dL) 206 H 301 H Random Glucose Calcium 11/21/16 05:32 WBC RBC Hgb Hct MCV MCH MCHC RDW Plt Count MPV Neut % (Auto) Lymph % (Auto) Whitfield % (Auto) Eos % (Auto) Baso % (Auto) Neut # Lymph # Whitfield # Eos # Baso # pCO2 pO2 HCO3 ABG pH ABG Total CO2 ABG O2 Saturation ABG O2 Content ABG Base Excess ABG Hemoglobin ABG Carboxyhemoglobin POC ABG HHb (Measured) ABG Methemoglobin ABG O2 Capacity Torres Test A-a O2 Difference Hgb O2 Saturation Vent Mode Mechanical Rate FiO2 Tidal Volume Sodium Potassium Chloride Carbon Dioxide Anion Gap BUN Creatinine Est GFR ( Amer) Est GFR (Non-Af Amer) POC Glucose (mg/dL) 357 H Random Glucose Calcium Radiology Interpretations (Free Text): CXR- (my interp): ETT position OK above shira, bilateral hilar interstitial changes, and RML changes. Fingerstick Blood Sugar Results: 206 Review of Systems - Review of Systems Systems not reviewed;Unavailable: Intubated Critical Care Progress Note - Ventilator Checklist Head of Bed 30 Degrees: Yes Daily Sedation Vacation: No Daily Assessment of Readiness to Wean: No Daily Spontaneous Breathing Trial: No PUD Prophalyxis: Yes DVT Prophylaxis: Yes - Vent Settings MODE:: ASSIST CONTROL (16) TIDAL VOLUME:: 500 RESP RATE:: 16 FIO2:: 50 PEEP:: 3 - Restraints Justification for Restraints: High risk for self extubation, High risk for removing IV access, High risk for harming self - Prophylaxis GI Prophylaxis GI: PPI - Prophylaxis DVT Prophylaxis DVT: Lovenox - Nutrition Nutrition: Nutrition Category Date Time Status NPO Diet [DIET] Diets 11/20/16 Breakfast Active
[2016-11-21 08:17] LABS: ALB/GLOB RATIO 0.5 (1.0-2.1); BILIRUBIN,TOTAL 0.3 mg/dl (0.2-1.3); CALCIUM 7.3 mg/dL (8.4-10.2); POTASSIUM 3.3 MMOL/L (3.6-5.0); TOTAL PROTEIN 6.4 G/DL (6.3-8.2)
[2016-11-21] MEDS: Albuterol-Ipratrop 3 mg / 0.5 (3 ml) UD INH SCH ×4 (08:30→19:13)
[2016-11-21] MEDS: Enoxaparin 30 mg Syringe SC SCH (08:39)
[2016-11-21] MEDS: Lactated Ringer's 1,000 ML IV SCH ×2 (08:46→20:00)
[2016-11-21 09:56] LABS: BASO # 0.1 K/uL (0.0-0.2); HEMATOCRIT 24.7 % (35.0-51.0); LYMPH % 8.1 % (20.0-40.0); MEAN CORPUSCULAR HEMOGLOBIN 29.6 pg (27.0-31.0); MEAN PLATELET VOLUME 9.6 fl (7.2-11.7); MONO # 0.4 K/uL (0.0-0.8); MONO % 3.3 % (0.0-10.0); NEUT # 11.1 K/uL (1.8-7.0); NEUT % 87.6 % (50.0-75.0); RED CELL DISTRIBUTION WIDTH 16.2 % (11.5-14.5); WHITE BLOOD COUNT 12.7 K/uL (4.8-10.8)
[2016-11-21 10:05] LABS: MEAN CELL VOLUME 92.3 fl (80.0-94.0)
[2016-11-21 10:06] LABS: PLATELET COUNT 111 K/uL (130-400)
[2016-11-21] MEDS: Insulin Regular 100 units/ml SC SCH ×3 (11:21→23:00)
[2016-11-21 11:50] LABS: NEUTROPHIL 79 % (42-75); TOTAL CELLS COUNTED 100
[2016-11-21 11:51] LABS: LARGE PLATELETS PRESENT; SPHEROCYTES SLIGHT
--- NOTE | 2016-11-21 11:56 | RAD ---
HISTORY: Pt's intubated COMPARISON: Comparison chest 11/20/2016 FINDINGS: LUNGS: Re- demonstrated is in situ ETT, tip of which lies approximately 6.43 cm above shira. NGT is present, the tip of which has not been included on this film though distal aspect does lie well below EG junction. Right IJ central venous line with tip in the SVC unchanged. Re- demonstrated are mild pulmonary vascular congestive changes with what probably represents some mild of bilateral mid to lower lobe alveolar-type infiltrates. PLEURA: No significant pleural effusion identified, no pneumothorax apparent. CARDIOVASCULAR: Normal. OSSEOUS STRUCTURES: No significant abnormalities. VISUALIZED UPPER ABDOMEN: Normal. OTHER FINDINGS: None. IMPRESSION: Support lines and tubes as above. Re- demonstrated are mild pulmonary vascular congestive changes with what probably represents some mild of bilateral mid to lower lobe alveolar-type infiltrates.
--- NOTE | 2016-11-21 12:29 | CP.PCM.PN ---
Subjective - Date & Time of Evaluation Date of Evaluation: 11/21/16 Time of Evaluation: 13:00 - Subjective Subjective: ID Note- Pt. seen and examined today in ICU. pt. still intubated, however, much more awake and can nod to questions . off pressors today. Objective - Vital Signs/Intake and Output Vital Signs (last 24 hours): Temp Pulse Resp BP Pulse Ox 98.6 F 39 L 29 H 127/63 100 11/21/16 12:00 11/21/16 12:00 11/21/16 12:00 11/21/16 12:00 11/21/16 12:00 Intake and Output: 11/21/16 11/21/16 06:59 18:59 Intake Total 959 1300 Output Total 200 150 Balance 759 1150 - Medications Medications: Current Medications Acetaminophen (Tylenol 650 Mg Supp) 650 mg OH Q4 PRN PRN Reason: Fever >100.4 F Acetaminophen (Tylenol 650mg/20.3ml Solution Ud) 650 mg PO Q4 PRN PRN Reason: Temperature Last Admin: 11/20/16 17:02 Dose: 650 mg Albuterol/Ipratropium (Duoneb 3 Mg/0.5 Mg (3 Ml) Ud) 3 ml INH RQID [facility] Last Admin: 11/21/16 11:39 Dose: 3 ml Enoxaparin Sodium (Lovenox) 30 mg SC DAILY [facility] PRN Reason: Protocol Last Admin: 11/21/16 08:39 Dose: 30 mg Vancomycin HCl 1 gm/ Sodium (Chloride) 250 mls @ 166.667 mls/hr IVPB DAILY [facility] Last Admin: 11/21/16 08:40 Dose: 166.667 mls/hr Piperacillin Sod/Tazobactam (Sod 3.375 gm/ Sodium Chloride) 100 mls @ 100 mls/ hr IVPB Q8 [facility] Last Admin: 11/21/16 08:41 Dose: 100 mls/hr Lactated Ringer's (Lactated Ringer's) 1,000 mls @ 125 mls/hr IV .Q8H [facility] Stop: 11/22/16 08:31 Last Admin: 11/21/16 08:46 Dose: 125 mls/hr Insulin Human Regular (Humulin R) 0 units SC ACCU-CHECK [facility] PRN Reason: Protocol Last Admin: 11/21/16 11:21 Dose: 8 units Pantoprazole Sodium (Protonix Inj) 40 mg IVP DAILY [facility] Last Admin: 11/21/16 08:42 Dose: 40 mg - Labs Labs: - Additional Findings Additional findings: - Constitutional Appears: Chronically Ill Additional comments: intubated but awake and responds - Head Exam Head Exam: ATRAUMATIC - ENT Exam Additional comments: ET tube and OG tube in place - Neck Exam Neck exam: Positive for: Full Rom - Respiratory Exam Additional comments: some scattered coarse breath sounds b/l - Cardiovascular Exam Cardiovascular Exam: RRR, +S1, +S2 - GI/Abdominal Exam GI & Abdominal Exam: Normal Bowel Sounds, Soft Additional comments: ND, NT - Extremities Exam Additional comments: unstageable b/l heel ulcers right third toe s/p amputation no discharge - Neurological Exam Additional comments: awake and follows some commands Laboratory Results - last 72 hr 11/20/16 11/20/16 11/20/16 01:13 01:40 01:40 WBC 15.9 H RBC 3.35 L Hgb 10.0 L Hct 31.4 L MCV 93.6 MCH 29.8 MCHC 31.8 L RDW 16.3 H Plt Count 159 MPV 9.3 Neut % (Auto) 84.6 H Lymph % (Auto) 12.5 L [place] % (Auto) 2.3 Eos % (Auto) 0.2 Baso % (Auto) 0.4 Neut # 13.4 H Lymph # 2.0 [place] # 0.4 Eos # 0.0 Baso # 0.1 Neutrophils % (Manual) Band Neutrophils % Lymphocytes % (Manual) Monocytes % (Manual) Platelet Estimate Large Platelets Poikilocytosis (manual Anisocytosis (manual) Spherocytes PT INR APTT pCO2 pO2 HCO3 ABG pH ABG Total CO2 ABG O2 Saturation ABG O2 Content ABG Base Excess ABG Hemoglobin ABG Carboxyhemoglobin POC ABG HHb (Measured) ABG Methemoglobin ABG O2 Capacity Torres Test ABG Potassium VBG pH VBG pCO2 VBG HCO3 VBG Total CO2 VBG O2 Sat (Calc) VBG Base Excess VBG Potassium A-a O2 Difference Hgb O2 Saturation Glucose Lactate Vent Mode Mechanical Rate FiO2 Tidal Volume PEEP Crit Value Called To Crit Value Called By Crit Value Read Back Blood Gas Notified Time Sodium 146 Potassium 5.7 H Chloride 118 H Carbon Dioxide 19 L Anion Gap 15 BUN 32 H Creatinine 1.6 H Est GFR ( Amer) 52 Est GFR (Non-Af Amer) 43 POC Glucose (mg/dL) 201 H Random Glucose 170 H Calcium 7.5 L Total Bilirubin AST ALT Alkaline Phosphatase Troponin I 0.0580 NT-Pro-B Natriuret Pep 4060 H Total Protein Albumin Globulin Albumin/Globulin Ratio Procalcitonin Arterial Blood Potassium Venous Blood Potassium Urine Color Urine Clarity Urine pH Ur Specific [place] Urine Protein Urine Glucose (UA) Urine Ketones Urine Blood Urine Nitrate Urine Bilirubin Urine Urobilinogen Ur Leukocyte Esterase Urine RBC (Auto) Urine Microscopic WBC Ur Squamous Epith Cells Urine Bacteria Ur Random Creatinine Ur Random Sodium Blood Type Antibody Screen BBK History Checked 11/20/16 11/20/16 11/20/16 01:57 02:24 04:52 WBC RBC Hgb Hct MCV MCH MCHC RDW Plt Count MPV Neut % (Auto) Lymph % (Auto) [place] % (Auto) Eos % (Auto) Baso % (Auto) Neut # Lymph # [place] # Eos # Baso # Neutrophils % (Manual) Band Neutrophils % Lymphocytes % (Manual) Monocytes % (Manual) Platelet Estimate Large Platelets Poikilocytosis (manual Anisocytosis (manual) Spherocytes PT INR APTT pCO2 76 H* pO2 66 L 45 HCO3 17.6 L ABG pH 7.08 L* ABG Total CO2 24.8 ABG O2 Saturation 93.3 L ABG O2 Content ABG Base Excess -8.9 L ABG Hemoglobin ABG Carboxyhemoglobin POC ABG HHb (Measured) ABG Methemoglobin ABG O2 Capacity Torres Test Yes ABG Potassium 4.3 VBG pH 7.23 L VBG pCO2 49 VBG HCO3 18.6 VBG Total CO2 22.0 VBG O2 Sat (Calc) 82.9 H VBG Base Excess -7.2 L VBG Potassium 3.9 A-a O2 Difference 552.0 Hgb O2 Saturation Glucose 199 H 189 H Lactate 1.3 1.4 Vent Mode A/c Mechanical Rate 12 FiO2 100.0 21.0 Tidal Volume 500 PEEP 5 Crit Value Called To John wyatt md Crit Value Called By 6075 Crit Value Read Back Y Blood Gas Notified Time 227 Sodium 146.0 148.0 Potassium Chloride 120.0 H 120.0 H Carbon Dioxide Anion Gap BUN Creatinine Est GFR ( Amer) Est GFR (Non-Af Amer) POC Glucose (mg/dL) Random Glucose Calcium Total Bilirubin AST ALT Alkaline Phosphatase Troponin I NT-Pro-B Natriuret Pep Total Protein Albumin Globulin Albumin/Globulin Ratio Procalcitonin Arterial Blood Potassium 4.3 Venous Blood Potassium 3.9 Urine Color Yellow Urine Clarity Clear Urine pH 5.0 Ur Specific [place] 1.013 Urine Protein Negative Urine Glucose (UA) Neg Urine Ketones Negative Urine Blood Small Urine Nitrate Negative Urine Bilirubin Negative Urine Urobilinogen 0.2-1.0 Ur Leukocyte Esterase Neg Urine RBC (Auto) 43 H Urine Microscopic WBC 2 Ur Squamous Epith Cells < 1 Urine Bacteria Rare Ur Random Creatinine Ur Random Sodium Blood Type Antibody Screen BBK History Checked 11/20/16 11/20/16 11/20/16 11:06 12:00 12:00 WBC 17.6 H RBC 3.24 L Hgb 9.7 L Hct 30.8 L MCV 95.1 H MCH 30.0 MCHC 31.5 L RDW 16.9 H Plt Count 143 MPV 10.2 Neut % (Auto) 84.0 H Lymph % (Auto) 11.4 L [place] % (Auto) 4.1 Eos % (Auto) 0.0 Baso % (Auto) 0.5 Neut # 14.8 H Lymph # 2.0 [place] # 0.7 Eos # 0.0 Baso # 0.1 Neutrophils % (Manual) Band Neutrophils % Lymphocytes % (Manual) Monocytes % (Manual) Platelet Estimate Large Platelets Poikilocytosis (manual Anisocytosis (manual) Spherocytes PT INR APTT pCO2 pO2 HCO3 ABG pH ABG Total CO2 ABG O2 Saturation ABG O2 Content ABG Base Excess ABG Hemoglobin ABG Carboxyhemoglobin POC ABG HHb (Measured) ABG Methemoglobin ABG O2 Capacity Torres Test ABG Potassium VBG pH VBG pCO2 VBG HCO3 VBG Total CO2 VBG O2 Sat (Calc) VBG Base Excess VBG Potassium A-a O2 Difference Hgb O2 Saturation Glucose Lactate Vent Mode Mechanical Rate FiO2 Tidal Volume PEEP Crit Value Called To Crit Value Called By Crit Value Read Back Blood Gas Notified Time Sodium Potassium Chloride Carbon Dioxide Anion Gap BUN Creatinine Est GFR ( Amer) Est GFR (Non-Af Amer) POC Glucose (mg/dL) 166 H Random Glucose Calcium Total Bilirubin AST ALT Alkaline Phosphatase Troponin I NT-Pro-B Natriuret Pep Total Protein Albumin Globulin Albumin/Globulin Ratio Procalcitonin 10.65 H Arterial Blood Potassium Venous Blood Potassium Urine Color Urine Clarity Urine pH Ur Specific [place] Urine Protein Urine Glucose (UA) Urine Ketones Urine Blood Urine Nitrate Urine Bilirubin Urine Urobilinogen Ur Leukocyte Esterase Urine RBC (Auto) Urine Microscopic WBC Ur Squamous Epith Cells Urine Bacteria Ur Random Creatinine Ur Random Sodium Blood Type Antibody Screen BBK History Checked 11/20/16 11/20/16 11/20/16 12:00 16:39 23:18 WBC RBC Hgb Hct MCV MCH MCHC RDW Plt Count MPV Neut % (Auto) Lymph % (Auto) [place] % (Auto) Eos % (Auto) Baso % (Auto) Neut # Lymph # [place] # Eos # Baso # Neutrophils % (Manual) Band Neutrophils % Lymphocytes % (Manual) Monocytes % (Manual) Platelet Estimate Large Platelets Poikilocytosis (manual Anisocytosis (manual) Spherocytes PT INR APTT pCO2 pO2 HCO3 ABG pH ABG Total CO2 ABG O2 Saturation ABG O2 Content ABG Base Excess ABG Hemoglobin ABG Carboxyhemoglobin POC ABG HHb (Measured) ABG Methemoglobin ABG O2 Capacity Torres Test ABG Potassium VBG pH VBG pCO2 VBG HCO3 VBG Total CO2 VBG O2 Sat (Calc) VBG Base Excess VBG Potassium A-a O2 Difference Hgb O2 Saturation Glucose Lactate Vent Mode Mechanical Rate FiO2 Tidal Volume PEEP Crit Value Called To Crit Value Called By Crit Value Read Back Blood Gas Notified Time Sodium 150 H Potassium 3.7 Chloride 121 H Carbon Dioxide 16 L Anion Gap 17 BUN 35 H Creatinine 1.7 H Est GFR ( Amer) 48 Est GFR (Non-Af Amer) 40 POC Glucose (mg/dL) 206 H 301 H Random Glucose 133 H Calcium 7.4 L Total Bilirubin AST ALT Alkaline Phosphatase Troponin I NT-Pro-B Natriuret Pep Total Protein Albumin Globulin Albumin/Globulin Ratio Procalcitonin Arterial Blood Potassium Venous Blood Potassium Urine Color Urine Clarity Urine pH Ur Specific [place] Urine Protein Urine Glucose (UA) Urine Ketones Urine Blood Urine Nitrate Urine Bilirubin Urine Urobilinogen Ur Leukocyte Esterase Urine RBC (Auto) Urine Microscopic WBC Ur Squamous Epith Cells Urine Bacteria Ur Random Creatinine Ur Random Sodium Blood Type Antibody Screen BBK History Checked 11/21/16 11/21/16 11/21/16 05:31 05:32 06:00 WBC 12.7 H RBC 2.68 L Hgb 7.9 L Hct 24.7 L MCV 92.3 D MCH 29.6 MCHC 32.0 L RDW 16.2 H Plt Count 111 L D MPV 9.6 Neut % (Auto) 87.6 H Lymph % (Auto) 8.1 L [place] % (Auto) 3.3 Eos % (Auto) 0.0 Baso % (Auto) 1.0 Neut # 11.1 H Lymph # 1.0 [place] # 0.4 Eos # 0.0 Baso # 0.1 Neutrophils % (Manual) 79 H Band Neutrophils % 10 H Lymphocytes % (Manual) 9 L Monocytes % (Manual) 2 Platelet Estimate Slightly decreased L Large Platelets Present Poikilocytosis (manual Slight Anisocytosis (manual) Slight Spherocytes Slight PT INR APTT pCO2 25 L pO2 113 H HCO3 20.1 L ABG pH 7.44 ABG Total CO2 17.8 L ABG O2 Saturation 100.7 H ABG O2 Content 11.8 L ABG Base Excess -6.2 L ABG Hemoglobin 8.4 L ABG Carboxyhemoglobin 1.4 POC ABG HHb (Measured) -0.7 L ABG Methemoglobin 1.5 ABG O2 Capacity 11.7 L Torres Test Yes ABG Potassium VBG pH VBG pCO2 VBG HCO3 VBG Total CO2 VBG O2 Sat (Calc) VBG Base Excess VBG Potassium A-a O2 Difference 284.0 Hgb O2 Saturation 97.8 Glucose Lactate Vent Mode A/c Mechanical Rate 16 FiO2 60.0 Tidal Volume 500 PEEP Crit Value Called To Crit Value Called By Crit Value Read Back Blood Gas Notified Time Sodium Potassium Chloride Carbon Dioxide Anion Gap BUN Creatinine Est GFR ( Amer) Est GFR (Non-Af Amer) POC Glucose (mg/dL) 357 H Random Glucose Calcium Total Bilirubin AST ALT Alkaline Phosphatase Troponin I NT-Pro-B Natriuret Pep Total Protein Albumin Globulin Albumin/Globulin Ratio Procalcitonin Arterial Blood Potassium Venous Blood Potassium Urine Color Urine Clarity Urine pH Ur Specific [place] Urine Protein Urine Glucose (UA) Urine Ketones Urine Blood Urine Nitrate Urine Bilirubin Urine Urobilinogen Ur Leukocyte Esterase Urine RBC (Auto) Urine Microscopic WBC Ur Squamous Epith Cells Urine Bacteria Ur Random Creatinine Ur Random Sodium Blood Type Antibody Screen BBK History Checked 11/21/16 11/21/16 11/21/16 06:00 07:49 11:12 WBC RBC Hgb Hct MCV MCH MCHC RDW Plt Count MPV Neut % (Auto) Lymph % (Auto) [place] % (Auto) Eos % (Auto) Baso % (Auto) Neut # Lymph # [place] # Eos # Baso # Neutrophils % (Manual) Band Neutrophils % Lymphocytes % (Manual) Monocytes % (Manual) Platelet Estimate Large Platelets Poikilocytosis (manual Anisocytosis (manual) Spherocytes PT INR APTT pCO2 pO2 HCO3 ABG pH ABG Total CO2 ABG O2 Saturation ABG O2 Content ABG Base Excess ABG Hemoglobin ABG Carboxyhemoglobin POC ABG HHb (Measured) ABG Methemoglobin ABG O2 Capacity Torres Test ABG Potassium VBG pH VBG pCO2 VBG HCO3 VBG Total CO2 VBG O2 Sat (Calc) VBG Base Excess VBG Potassium A-a O2 Difference Hgb O2 Saturation Glucose Lactate Vent Mode Mechanical Rate FiO2 Tidal Volume PEEP Crit Value Called To Crit Value Called By Crit Value Read Back Blood Gas Notified Time Sodium 149 H Potassium 3.3 L Chloride 120 H Carbon Dioxide 17 L Anion Gap 15 BUN 48 H Creatinine 2.0 H Est GFR ( Amer) 40 Est GFR (Non-Af Amer) 33 POC Glucose (mg/dL) 311 H 343 H Random Glucose 298 H Calcium 7.3 L Total Bilirubin 0.3 AST 14 L D ALT 19 L D Alkaline Phosphatase 83 Troponin I NT-Pro-B Natriuret Pep Total Protein 6.4 Albumin 2.2 L Globulin 4.2 H Albumin/Globulin Ratio 0.5 L Procalcitonin Arterial Blood Potassium Venous Blood Potassium Urine Color Urine Clarity Urine pH Ur Specific [place] Urine Protein Urine Glucose (UA) Urine Ketones Urine Blood Urine Nitrate Urine Bilirubin Urine Urobilinogen Ur Leukocyte Esterase Urine RBC (Auto) Urine Microscopic WBC Ur Squamous Epith Cells Urine Bacteria Ur Random Creatinine Ur Random Sodium Blood Type Antibody Screen BBK History Checked 11/21/16 11/21/16 11/21/16 13:30 13:30 13:30 WBC 10.9 H RBC 2.55 L Hgb 7.7 L Hct 23.6 L MCV 92.4 MCH 30.1 MCHC 32.6 L RDW 16.4 H Plt Count 110 L MPV 9.6 Neut % (Auto) 86.1 H Lymph % (Auto) 8.2 L [place] % (Auto) 5.0 Eos % (Auto) 0.0 Baso % (Auto) 0.7 Neut # 9.4 H Lymph # 0.9 L [place] # 0.5 Eos # 0.0 Baso # 0.1 Neutrophils % (Manual) Band Neutrophils % Lymphocytes % (Manual) Monocytes % (Manual) Platelet Estimate Large Platelets Poikilocytosis (manual Anisocytosis (manual) Spherocytes PT 12.3 INR 1.2 APTT 33.7 pCO2 pO2 HCO3 ABG pH ABG Total CO2 ABG O2 Saturation ABG O2 Content ABG Base Excess ABG Hemoglobin ABG Carboxyhemoglobin POC ABG HHb (Measured) ABG Methemoglobin ABG O2 Capacity Torres Test ABG Potassium VBG pH VBG pCO2 VBG HCO3 VBG Total CO2 VBG O2 Sat (Calc) VBG Base Excess VBG Potassium A-a O2 Difference Hgb O2 Saturation Glucose Lactate Vent Mode Mechanical Rate FiO2 Tidal Volume PEEP Crit Value Called To Crit Value Called By Crit Value Read Back Blood Gas Notified Time Sodium Potassium Chloride Carbon Dioxide Anion Gap BUN Creatinine Est GFR ( Amer) Est GFR (Non-Af Amer) POC Glucose (mg/dL) Random Glucose Calcium Total Bilirubin AST ALT Alkaline Phosphatase Troponin I NT-Pro-B Natriuret Pep Total Protein Albumin Globulin Albumin/Globulin Ratio Procalcitonin Arterial Blood Potassium Venous Blood Potassium Urine Color Urine Clarity Urine pH Ur Specific [place] Urine Protein Urine Glucose (UA) Urine Ketones Urine Blood Urine Nitrate Urine Bilirubin Urine Urobilinogen Ur Leukocyte Esterase Urine RBC (Auto) Urine Microscopic WBC Ur Squamous Epith Cells Urine Bacteria Ur Random Creatinine Ur Random Sodium Blood Type A POSITIVE Antibody Screen Negative BBK History Checked Patient has bt 11/21/16 14:00 WBC RBC Hgb Hct MCV MCH MCHC RDW Plt Count MPV Neut % (Auto) Lymph % (Auto) [place] % (Auto) Eos % (Auto) Baso % (Auto) Neut # Lymph # [place] # Eos # Baso # Neutrophils % (Manual) Band Neutrophils % Lymphocytes % (Manual) Monocytes % (Manual) Platelet Estimate Large Platelets Poikilocytosis (manual Anisocytosis (manual) Spherocytes PT INR APTT pCO2 pO2 HCO3 ABG pH ABG Total CO2 ABG O2 Saturation ABG O2 Content ABG Base Excess ABG Hemoglobin ABG Carboxyhemoglobin POC ABG HHb (Measured) ABG Methemoglobin ABG O2 Capacity Torres Test ABG Potassium VBG pH VBG pCO2 VBG HCO3 VBG Total CO2 VBG O2 Sat (Calc) VBG Base Excess VBG Potassium A-a O2 Difference Hgb O2 Saturation Glucose Lactate Vent Mode Mechanical Rate FiO2 Tidal Volume PEEP Crit Value Called To Crit Value Called By Crit Value Read Back Blood Gas Notified Time Sodium Potassium Chloride Carbon Dioxide Anion Gap BUN Creatinine Est GFR ( Amer) Est GFR (Non-Af Amer) POC Glucose (mg/dL) Random Glucose Calcium Total Bilirubin AST ALT Alkaline Phosphatase Troponin I NT-Pro-B Natriuret Pep Total Protein Albumin Globulin Albumin/Globulin Ratio Procalcitonin Arterial Blood Potassium Venous Blood Potassium Urine Color Urine Clarity Urine pH Ur Specific [place] Urine Protein Urine Glucose (UA) Urine Ketones Urine Blood Urine Nitrate Urine Bilirubin Urine Urobilinogen Ur Leukocyte Esterase Urine RBC (Auto) Urine Microscopic WBC Ur Squamous Epith Cells Urine Bacteria Ur Random Creatinine 55.6 Ur Random Sodium 49 Blood Type Antibody Screen BBK History Checked Microbiology 11/20/16 01:57 Urine,Triplett Urine Culture - Final No Growth (<1,000 CFU/ML) 11/20/16 10:00 Blood-Venous Blood Culture - Preliminary NO GROWTH AFTER 24 HOURS Accession No. : [id number] Patient Name / ID : GRACE ANTON / [id number] Exam Date : 11/21/2016 05:31:35 ( Approved ) Study Comment : Sex / Age : M / [id number] Creator : Manfred Strickland MD Dictator : Manfred Strickland MD Beam Worker : Speech Lang Path Therapist : Manfred Strickland MD Approver2 : Report Date : 11/21/2016 11:50:58 My Comment : HISTORY: Pt's intubated COMPARISON: Comparison chest 11/20/2016 FINDINGS: LUNGS: Re- demonstrated is in situ ETT, tip of which lies approximately 6.43 cm above shira. NGT is present, the tip of which has not been included on this film though distal aspect does lie well below EG junction. Right IJ central venous line with tip in the SVC unchanged. Re- demonstrated are mild pulmonary vascular congestive changes with what probably represents some mild of bilateral mid to lower lobe alveolar-type infiltrates. PLEURA: No significant pleural effusion identified, no pneumothorax apparent. CARDIOVASCULAR: Normal. OSSEOUS STRUCTURES: No significant abnormalities. VISUALIZED UPPER ABDOMEN: Normal. OTHER FINDINGS: None. IMPRESSION: Support lines and tubes as above. Re- demonstrated are mild pulmonary vascular congestive changes with what probably represents some mild of bilateral mid to lower lobe alveolar-type infiltrates. Assessment and Plan (1) Respiratory failure Status: Acute (2) Septic shock Status: Acute (3) GEORGINA (acute kidney injury) Status: Acute (4) Leukocytosis Status: Acute - Assessment and Plan (Free Text) Assessment: A?p- 71 year old male from [place] with multiple medical conditions including DM II, HTN, previous e.fecalis bacteremia in 10/2016, h/o right third toe amputation for OM admitted with sob and hypoxemia and is intubated and on pressors. clinically better today. off pressors. intubated but is awake afebrile leukocytosis trending down blood cx- neg urine cx- neg 1.hypoxemia 2.respiratory failure/intubated 3.leukocytosis 4.IZABELLA 5.sepsis Plan- advise to continue with empiric broad spectrum abx coverage with vanco and zosyn day #2. keep vanco trough <15. await stool c.diff result. check sputum cx. ICU time 45 minutes. d/w console attendant
--- NOTE | 2016-11-21 12:52 | PN ---
DATE: 11/20/2016 SUBJECTIVE: The patient is in ICU, bed 424. Time spent 40 minutes. The patient is seen and examined at the bedside. Even since admission, reviewed and discussed with Dr. Lan. Past medical, surgical, social history, current medications noted. A 71-year-old male from [facility] brought in after he was noted to be short of breath and hypoxic. Intubated prior to arrival at the ED. He has a history of diabetes mellitus type 2, peripheral vascular disease, osteomyelitis of the right third toe status post amputation a year ago, avascular necrosis of the right hip and also anemia of chronic disease, dementia, former alcohol user, cigarette nicotine dependence in the past. Initial evaluation showed a hypercapnic hypoxic respiratory failure along with acute on chronic renal insufficiency with metabolic acidosis on AC/PRBC, rate 16, set tidal volume of 500, FiO2 60%, PEEP 5, accelerated respiratory rate 24, accelerated tidal volume 640, saturating 99%, peak airway pressure of 30, mean airway pressure of 12, end tidal CO2 of 20. Not on sedation, remains lethargic, but arousable on painful stimuli. PHYSICAL EXAMINATION: GENERAL: Elderly male, looks older than his stated age on status post endotracheal intubation with a 7.5 size 24 cm at lips on ventilator. VITAL SIGNS: Temperature 98.3, heart rate 103, regular, blood pressure 127/63. INTAKE AND OUTPUT: Reviewed status post 2 liters of IV fluids in the emergency room. HEAD, EYES, EARS, NOSE AND THROAT: Pupils are reactive midpoint. Conjunctivae pale. Sclerae white. NECK: Supple. CHEST: Bilateral breath sounds. Expiration prolonged. Clear to auscultation anteriorly and laterally. HEART: Rhythm irregular. S1 and S2 rapid. No S3, S4 gallop. No audible murmur. ABDOMEN: Bowel sounds present, soft. Liver and spleen are palpable. GENITOURINARY: Bladder not distended. Triplett in place. Draining clear urine. EXTREMITIES: Peripheral pulses reduced in intensity. Warmth to touch. Status post amputation of right third toe. SKIN: Multiple unstageable decubiti involving the heel as well as on the right buttock. CURRENT MEDICATIONS: Tylenol 650 q. 4 p.r.n., DuoNeb 3 mL q. 6 hours, cefepime 1 g IV q. 8 hours, Lovenox 30 subq daily, Solu-Medrol 40 mg IV q. 8, Levophed at 4.8 mcg, Protonix 40 mg IV daily, half normal saline at 40 mL/hour, vancomycin 1 g IV daily. LABORATORY DATA: WBC 15.9, hemoglobin 10, hematocrit 31.4, platelet count of 159, neutrophils 84.6, lymphocytes 12.5. PT 10.5, INR 0.9, and PTT 30. ABG; pH 7.08, PCO2 of 76, PO2 of 66, oxygen saturation 93.3 on AC, FiO2 100% consistent with respiratory and metabolic acidosis and hypoxemia. SMA-7; sodium 146, potassium 5.7, chloride 118, CO2 19, blood urea nitrogen 32, creatinine 1.6, random glucose 166, calcium 7.05. Urine analysis; RBC 43, WBC 2, numerous 2 count. Toxicology; vancomycin level pending. Microbiology, wound culture from 04/16/2015, Staphylococcus coagulase negative and beta hemolytic Streptococus group B. Chest x-ray, endotracheal tube in place, no pneumothorax. The patient has right lung along the minor fissure as well as left base. IMPRESSION: 1. Neurologic: Septic toxic metabolic encephalopathy. 2. Pulmonary: Hypercapnic hypoxic respiratory failure secondary to chronic obstructive pulmonary disease, possible healthcare associated pneumonia. 3. Gastrointestinal: History of alcohol dependence in the past. Continue gastrointestinal prophylaxis. 4. Renal: Acute on chronic renal insufficiency with dehydration, status post IV fluid on 2 liters in the ER. Continue IV hydration. Closely monitor for pulmonary congestion. 5. Infectious disease: Sepsis with hypotension, source likely multifactorial. a. Possible pneumonia. b. Urinary tract infection. c. Multiple unstageable skin breakdown on the sacral wound and foot. Continue antibiotics as per infectious disease consult. 6. Hematology: a. Leukocytosis secondary to ongoing sepsis. b. Anemia of chronic disease status post amputation of third toe secondary to peripheral vascular disease. c. History of avascular necrosis of the right hip. Continue gastrointestinal and deep venous thrombosis prophylaxis. Continue ventilatory support until the patient becomes more wakeful and then to attempt spontaneous breathing trial. Heri Izquierdo MD MAKSIM
--- NOTE | 2016-11-21 13:27 | CP.PCM.CON ---
History of Present Illness - History of Present Illness History of Present Illness: 71 y/o male [place] resident Hx/o HTN, DM, Et foot cellulitis(2016),was brought to ER because of severe SOB. Required intubation in the field.Admitted to ICU for respiratory failure & pneumonia Renal consult is requested because of abnormal kidney function Past Patient History - Past Medical History & Family History Past Medical History?: Yes - Past Social History Smoking Status: Light Smoker < 10 Cigarettes Daily Chewing Tobacco Use: No Cigar Use: No Alcohol: Social Drugs: Denies Home Situation {Lives}: Shelter - CARDIAC Hx Cardiac Disorders: Yes Hx Atrial Fibrillation: Yes Hx Hypercholesterolemia: Yes Hx Hypertension: Yes Hx Peripheral Vascular Disease: Yes - PULMONARY Hx Respiratory Disorders: No - NEUROLOGICAL Hx Neurological Disorder: Yes Hx Dementia: Yes - HEENT Hx HEENT Problems: No - RENAL Hx Chronic Kidney Disease: Yes - ENDOCRINE/METABOLIC Hx Endocrine Disorders: Yes Hx Diabetes Mellitus Type 2: Yes - HEMATOLOGICAL/ONCOLOGICAL Hx Blood Disorders: Yes Hx Anemia: Yes - INTEGUMENTARY Hx Dermatological Problems: No - MUSCULOSKELETAL/RHEUMATOLOGICAL Hx Musculoskeletal Disorders: Yes (R hip pain) Hx Falls: Yes Hx Osteomyelitis: Yes (R foot) Hx Unsteady Gait: Yes - GASTROINTESTINAL Hx Gastrointestinal Disorders: No - GENITOURINARY/GYNECOLOGICAL Hx Genitourinary Disorders: Yes Hx Urinary Tract Infection: Yes - PSYCHIATRIC Hx Psychophysiologic Disorder: No Hx Substance Use: No - SURGICAL HISTORY Hx Surgeries: No - ANESTHESIA Hx Anesthesia: No Hx Anesthesia Reactions: No Hx Malignant Hyperthermia: No Meds Allergies/Adverse Reactions: Allergies Allergy/AdvReac Type Severity Reaction Status Date / Time No Known Allergies Allergy Verified 10/05/16 16:18 - Medications Medications: Current Medications Acetaminophen (Tylenol 650 Mg Supp) 650 mg [place] Q4 PRN PRN Reason: Fever >100.4 F Acetaminophen (Tylenol 650mg/20.3ml Solution Ud) 650 mg PO Q4 PRN PRN Reason: Temperature Last Admin: 11/20/16 17:02 Dose: 650 mg Albuterol/Ipratropium (Duoneb 3 Mg/0.5 Mg (3 Ml) Ud) 3 ml INH RQID [facility] Last Admin: 11/21/16 11:39 Dose: 3 ml Enoxaparin Sodium (Lovenox) 30 mg SC DAILY [facility] PRN Reason: Protocol Last Admin: 11/21/16 08:39 Dose: 30 mg Vancomycin HCl 1 gm/ Sodium (Chloride) 250 mls @ 166.667 mls/hr IVPB DAILY [facility] Last Admin: 11/21/16 08:40 Dose: 166.667 mls/hr Piperacillin Sod/Tazobactam (Sod 3.375 gm/ Sodium Chloride) 100 mls @ 100 mls/ hr IVPB Q8 [facility] Last Admin: 11/21/16 08:41 Dose: 100 mls/hr Lactated Ringer's (Lactated Ringer's) 1,000 mls @ 125 mls/hr IV .Q8H [facility] Stop: 11/22/16 08:31 Last Admin: 11/21/16 08:46 Dose: 125 mls/hr Insulin Human Regular (Humulin R) 0 units SC ACCU-CHECK [facility] PRN Reason: Protocol Last Admin: 11/21/16 11:21 Dose: 8 units Pantoprazole Sodium (Protonix Inj) 40 mg IVP DAILY [facility] Last Admin: 11/21/16 08:42 Dose: 40 mg Physical Exam - Constitutional Additional comments: Intubated & sedated - Head Exam Head Exam: ATRAUMATIC, NORMOCEPHALIC - Eye Exam Additional comments: No icterus - ENT Exam ENT Exam: Mucous Membranes Dry - Neck Exam Additional comments: JVD + @ 35 deg - Respiratory Exam Additional comments: Lungs clear anteriorly - Cardiovascular Exam Cardiovascular Exam: REGULAR RHYTHM - GI/Abdominal Exam GI & Abdominal Exam: Soft - Extremities Exam Additional comments: No edema or cyanosis Results - Vital Signs Recent Vital Signs: Last Vital Signs Temp 98.6 F 11/21/16 12:00 Pulse 39 L 11/21/16 12:00 Resp 29 H 11/21/16 12:00 BP 127/63 11/21/16 12:00 Pulse Ox 100 11/21/16 12:00 - Labs Result Diagrams: 11/22/16 04:20 11/22/16 04:20 Labs: Laboratory Results - last 24 hr 11/20/16 11/20/16 11/20/16 12:00 16:39 23:18 WBC RBC Hgb Hct MCV MCH MCHC RDW Plt Count MPV Neut % (Auto) Lymph % (Auto) [place] % (Auto) Eos % (Auto) Baso % (Auto) Neut # Lymph # [place] # Eos # Baso # Neutrophils % (Manual) Band Neutrophils % Lymphocytes % (Manual) Monocytes % (Manual) Platelet Estimate Large Platelets Poikilocytosis (manual Anisocytosis (manual) Spherocytes pCO2 pO2 HCO3 ABG pH ABG Total CO2 ABG O2 Saturation ABG O2 Content ABG Base Excess ABG Hemoglobin ABG Carboxyhemoglobin POC ABG HHb (Measured) ABG Methemoglobin ABG O2 Capacity Torres Test A-a O2 Difference Hgb O2 Saturation Vent Mode Mechanical Rate FiO2 Tidal Volume Sodium Potassium Chloride Carbon Dioxide Anion Gap BUN Creatinine Est GFR ( Amer) Est GFR (Non-Af Amer) POC Glucose (mg/dL) 206 H 301 H Random Glucose Calcium Total Bilirubin AST ALT Alkaline Phosphatase Total Protein Albumin Globulin Albumin/Globulin Ratio Procalcitonin 10.65 H 11/21/16 11/21/16 11/21/16 05:31 05:32 06:00 WBC 12.7 H RBC 2.68 L Hgb 7.9 L Hct 24.7 L MCV 92.3 D MCH 29.6 MCHC 32.0 L RDW 16.2 H Plt Count 111 L D MPV 9.6 Neut % (Auto) 87.6 H Lymph % (Auto) 8.1 L [place] % (Auto) 3.3 Eos % (Auto) 0.0 Baso % (Auto) 1.0 Neut # 11.1 H Lymph # 1.0 [place] # 0.4 Eos # 0.0 Baso # 0.1 Neutrophils % (Manual) 79 H Band Neutrophils % 10 H Lymphocytes % (Manual) 9 L Monocytes % (Manual) 2 Platelet Estimate Slightly decreased L Large Platelets Present Poikilocytosis (manual Slight Anisocytosis (manual) Slight Spherocytes Slight pCO2 25 L pO2 113 H HCO3 20.1 L ABG pH 7.44 ABG Total CO2 17.8 L ABG O2 Saturation 100.7 H ABG O2 Content 11.8 L ABG Base Excess -6.2 L ABG Hemoglobin 8.4 L ABG Carboxyhemoglobin 1.4 POC ABG HHb (Measured) -0.7 L ABG Methemoglobin 1.5 ABG O2 Capacity 11.7 L Torres Test Yes A-a O2 Difference 284.0 Hgb O2 Saturation 97.8 Vent Mode A/c Mechanical Rate 16 FiO2 60.0 Tidal Volume 500 Sodium Potassium Chloride Carbon Dioxide Anion Gap BUN Creatinine Est GFR ( Amer) Est GFR (Non-Af Amer) POC Glucose (mg/dL) 357 H Random Glucose Calcium Total Bilirubin AST ALT Alkaline Phosphatase Total Protein Albumin Globulin Albumin/Globulin Ratio Procalcitonin 11/21/16 11/21/16 11/21/16 06:00 07:49 11:12 WBC RBC Hgb Hct MCV MCH MCHC RDW Plt Count MPV Neut % (Auto) Lymph % (Auto) [place] % (Auto) Eos % (Auto) Baso % (Auto) Neut # Lymph # [place] # Eos # Baso # Neutrophils % (Manual) Band Neutrophils % Lymphocytes % (Manual) Monocytes % (Manual) Platelet Estimate Large Platelets Poikilocytosis (manual Anisocytosis (manual) Spherocytes pCO2 pO2 HCO3 ABG pH ABG Total CO2 ABG O2 Saturation ABG O2 Content ABG Base Excess ABG Hemoglobin ABG Carboxyhemoglobin POC ABG HHb (Measured) ABG Methemoglobin ABG O2 Capacity Torres Test A-a O2 Difference Hgb O2 Saturation Vent Mode Mechanical Rate FiO2 Tidal Volume Sodium 149 H Potassium 3.3 L Chloride 120 H Carbon Dioxide 17 L Anion Gap 15 BUN 48 H Creatinine 2.0 H Est GFR ( Amer) 40 Est GFR (Non-Af Amer) 33 POC Glucose (mg/dL) 311 H 343 H Random Glucose 298 H Calcium 7.3 L Total Bilirubin 0.3 AST 14 L D ALT 19 L D Alkaline Phosphatase 83 Total Protein 6.4 Albumin 2.2 L Globulin 4.2 H Albumin/Globulin Ratio 0.5 L Procalcitonin Assessment & Plan - Assessment and Plan (Free Text) Assessment: Acute kidney injury /ATN secondary to sepsis, dehydration Respiratory failure, Pneumonia Sepsis Plan: urinalysis. Urine spot lytes Renal US Continue to monitor renal function
[2016-11-21 13:39] LABS: BASO # 0.1 K/uL (0.0-0.2); BASO % 0.7 % (0.0-2.0); HEMATOCRIT 23.6 % (35.0-51.0); LYMPH # 0.9 K/uL (1.0-4.3); LYMPH % 8.2 % (20.0-40.0); MEAN CELL VOLUME 92.4 fl (80.0-94.0); MEAN CORPUSCULAR HEMOGLOBIN 30.1 pg (27.0-31.0); MEAN CORPUSCULAR HGB CONC 32.6 g/dL (33.0-37.0); MEAN PLATELET VOLUME 9.6 fl (7.2-11.7); MONO # 0.5 K/uL (0.0-0.8); NEUT # 9.4 K/uL (1.8-7.0); NEUT % 86.1 % (50.0-75.0); RED CELL DISTRIBUTION WIDTH 16.4 % (11.5-14.5); WHITE BLOOD COUNT 10.9 K/uL (4.8-10.8)
[2016-11-21 14:10] LABS: PARTIAL THROMBOPLASTIN TIME 33.7 Seconds (25.6-37.1)
[2016-11-21 14:55] LABS: CREATININE, RANDOM URINE 55.6 mg/dL
--- NOTE | 2016-11-21 17:33 | CP.PCM.CON ---
History of Present Illness - History of Present Illness History of Present Illness: 71 Y/O ADMITTED WITH FEVER, HYPOTENSION AND MENTAL STATUS CHANGES. PT WAS ON LEVOPHED YESTERDAY, INTUBATED AND SEDATED. EKG NOTED LATERAL AND HIGH LATERAL NON-SPECIFIC ST SEGMENT DEPRESSIONS, THUS I WAS ASKED TO SEE PT FOR CARDIAC EVAL. CURRENTLY PT IS OFF LEVOPHED, EKG WAS REPEATED AND ST SEGMENTS NORMALIZED. VITALS ARE STABLE. PT IS NOT SEDATED. REMAINS ON VENT. RESPONDING AND APPEARS COMFORTABLE. CXR REVEALS POSSIBLE INFILTRATES. REMAINING HISTORY PER RN AND CHART PT IS INTUBATED. CHART REVIEWED. Review of Systems - Review of Systems Systems not reviewed;Unavailable: Acuity of Condition, Intubated Past Patient History - Past Medical History & Family History Past Medical History?: Yes - Past Social History Smoking Status: Light Smoker < 10 Cigarettes Daily Chewing Tobacco Use: No Cigar Use: No Alcohol: Social Drugs: Denies Home Situation {Lives}: Senior Care Domestic Violence: Negative - CARDIAC Hx Cardiac Disorders: Yes Hx Atrial Fibrillation: Yes Hx Hypercholesterolemia: Yes Hx Hypertension: Yes Hx Peripheral Vascular Disease: Yes - PULMONARY Hx Respiratory Disorders: No - NEUROLOGICAL Hx Neurological Disorder: Yes Hx Dementia: Yes - HEENT Hx HEENT Problems: No - RENAL Hx Chronic Kidney Disease: Yes - ENDOCRINE/METABOLIC Hx Endocrine Disorders: Yes Hx Diabetes Mellitus Type 2: Yes - HEMATOLOGICAL/ONCOLOGICAL Hx Blood Disorders: Yes Hx Anemia: Yes - INTEGUMENTARY Hx Dermatological Problems: No - MUSCULOSKELETAL/RHEUMATOLOGICAL Hx Musculoskeletal Disorders: Yes (R hip pain) Hx Falls: Yes Hx Osteomyelitis: Yes (R foot) Hx Unsteady Gait: Yes - GASTROINTESTINAL Hx Gastrointestinal Disorders: No - GENITOURINARY/GYNECOLOGICAL Hx Genitourinary Disorders: Yes Hx Urinary Tract Infection: Yes - PSYCHIATRIC Hx Psychophysiologic Disorder: No Hx Substance Use: No - SURGICAL HISTORY Hx Surgeries: No - ANESTHESIA Hx Anesthesia: No Hx Anesthesia Reactions: No Hx Malignant Hyperthermia: No Meds Allergies/Adverse Reactions: Allergies Allergy/AdvReac Type Severity Reaction Status Date / Time No Known Allergies Allergy Verified 10/05/16 16:18 - Medications Medications: Current Medications Acetaminophen (Tylenol 650 Mg Supp) 650 mg [place] Q4 PRN PRN Reason: Fever >100.4 F Acetaminophen (Tylenol 650mg/20.3ml Solution Ud) 650 mg PO Q4 PRN PRN Reason: Temperature Last Admin: 11/20/16 17:02 Dose: 650 mg Albuterol/Ipratropium (Duoneb 3 Mg/0.5 Mg (3 Ml) Ud) 3 ml INH RQID [facility] Last Admin: 11/21/16 15:28 Dose: 3 ml Enoxaparin Sodium (Lovenox) 30 mg SC DAILY [facility] PRN Reason: Protocol Last Admin: 11/21/16 08:39 Dose: 30 mg Vancomycin HCl 1 gm/ Sodium (Chloride) 250 mls @ 166.667 mls/hr IVPB DAILY [facility] Last Admin: 11/21/16 08:40 Dose: 166.667 mls/hr Piperacillin Sod/Tazobactam (Sod 3.375 gm/ Sodium Chloride) 100 mls @ 100 mls/ hr IVPB Q8 [facility] Last Admin: 11/21/16 16:28 Dose: 100 mls/hr Lactated Ringer's (Lactated Ringer's) 1,000 mls @ 125 mls/hr IV .Q8H [facility] Stop: 11/22/16 08:31 Last Admin: 11/21/16 08:46 Dose: 125 mls/hr Insulin Human Regular (Humulin R) 0 units SC ACCU-CHECK [facility] PRN Reason: Protocol Last Admin: 11/21/16 16:27 Dose: 4 units Pantoprazole Sodium (Protonix Inj) 40 mg IVP DAILY [facility] Last Admin: 11/21/16 08:42 Dose: 40 mg Physical Exam - Constitutional Appears: Non-toxic - Head Exam Head Exam: ATRAUMATIC, NORMAL INSPECTION, NORMOCEPHALIC - Eye Exam Eye Exam: EOMI, Normal appearance, PERRL. absent: Conjunctival injection, Nystagmus, Periorbital swelling, Periorbital tenderness, Scleral icterus Pupil Exam: NORMAL ACCOMODATION, PERRL. absent: Fixed, Irregular, Miosis, Mydriatic, Unequal - ENT Exam ENT Exam: Mucous Membranes Moist, Normal Exam. absent: Mucous Membranes Dry, Normal External Ear Exam, Normal Oropharynx, TM's Normal Bilaterally - Neck Exam Neck exam: Positive for: Normal Inspection. Negative for: Full Rom, Lymphadenopathy, Meningismus, Tenderness, Thyromegaly - Respiratory Exam Respiratory Exam: Clear to Auscultation Bilateral, NORMAL BREATHING PATTERN. absent: Accessory Muscle Use, Chest Wall Tenderness, Decreased Breath Sounds, Prolonged Expiratory Phase, Rales, Rhonchi, Wheezes, Respiratory Distress, Stridor - Cardiovascular Exam Cardiovascular Exam: REGULAR RHYTHM, +S1, +S2, Systolic Murmur. absent: Bradycardia, Tachycardia, Clicks, Diastolic murmur, Gallop, Irregular Rhythm, JVD, RRR, Rubs, +S4 - GI/Abdominal Exam GI & Abdominal Exam: Normal Bowel Sounds, Soft. absent: Bruit, Diminished Bowel Sounds, Distended, Firm, Guarding, Hernia, Hyperactive Bowel Sounds, Hypoactive Bowel Sounds, Mass, Organomegaly, Pulsatile Mass, Rebound, Rigid, Tenderness - Rectal Exam Rectal Exam: Deferred - Extremities Exam Extremities exam: Positive for: normal inspection. Negative for: calf tenderness, full ROM, joint swelling, normal capillary refill, pedal edema, tenderness, pedal pulses present - Back Exam Back exam: NORMAL INSPECTION. absent: CVA tenderness (L), CVA tenderness (R), FULL ROM, muscle spasm, paraspinal tenderness, rash noted, tenderness, vertebral tenderness - Neurological Exam Neurological exam: Alert, Reflexes Normal - Psychiatric Exam Psychiatric exam: Normal Affect, Normal Mood - Skin Skin Exam: Dry, Intact, Normal Color, Warm Results - Vital Signs Recent Vital Signs: Last Vital Signs Temp 98.4 F 11/21/16 16:00 Pulse 93 H 11/21/16 16:00 Resp 23 11/21/16 16:00 BP 123/57 L 11/21/16 16:00 Pulse Ox 100 11/21/16 16:00 - Labs Result Diagrams: 11/21/16 13:30 11/21/16 06:00 Labs: Laboratory Results - last 24 hr 11/20/16 11/20/16 11/21/16 12:00 23:18 05:31 WBC RBC Hgb Hct MCV MCH MCHC RDW Plt Count MPV Neut % (Auto) Lymph % (Auto) [place] % (Auto) Eos % (Auto) Baso % (Auto) Neut # Lymph # [place] # Eos # Baso # Neutrophils % (Manual) Band Neutrophils % Lymphocytes % (Manual) Monocytes % (Manual) Platelet Estimate Large Platelets Poikilocytosis (manual Anisocytosis (manual) Spherocytes PT INR APTT pCO2 25 L pO2 113 H HCO3 20.1 L ABG pH 7.44 ABG Total CO2 17.8 L ABG O2 Saturation 100.7 H ABG O2 Content 11.8 L ABG Base Excess -6.2 L ABG Hemoglobin 8.4 L ABG Carboxyhemoglobin 1.4 POC ABG HHb (Measured) -0.7 L ABG Methemoglobin 1.5 ABG O2 Capacity 11.7 L Torres Test Yes A-a O2 Difference 284.0 Hgb O2 Saturation 97.8 Vent Mode A/c Mechanical Rate 16 FiO2 60.0 Tidal Volume 500 Sodium Potassium Chloride Carbon Dioxide Anion Gap BUN Creatinine Est GFR ( Amer) Est GFR (Non-Af Amer) POC Glucose (mg/dL) 301 H Random Glucose Calcium Total Bilirubin AST ALT Alkaline Phosphatase Total Protein Albumin Globulin Albumin/Globulin Ratio Procalcitonin 10.65 H Ur Random Creatinine Ur Random Sodium Blood Type Antibody Screen BBK History Checked 11/21/16 11/21/16 11/21/16 05:32 06:00 06:00 WBC 12.7 H RBC 2.68 L Hgb 7.9 L Hct 24.7 L MCV 92.3 D MCH 29.6 MCHC 32.0 L RDW 16.2 H Plt Count 111 L D MPV 9.6 Neut % (Auto) 87.6 H Lymph % (Auto) 8.1 L [place] % (Auto) 3.3 Eos % (Auto) 0.0 Baso % (Auto) 1.0 Neut # 11.1 H Lymph # 1.0 [place] # 0.4 Eos # 0.0 Baso # 0.1 Neutrophils % (Manual) 79 H Band Neutrophils % 10 H Lymphocytes % (Manual) 9 L Monocytes % (Manual) 2 Platelet Estimate Slightly decreased L Large Platelets Present Poikilocytosis (manual Slight Anisocytosis (manual) Slight Spherocytes Slight PT INR APTT pCO2 pO2 HCO3 ABG pH ABG Total CO2 ABG O2 Saturation ABG O2 Content ABG Base Excess ABG Hemoglobin ABG Carboxyhemoglobin POC ABG HHb (Measured) ABG Methemoglobin ABG O2 Capacity Torres Test A-a O2 Difference Hgb O2 Saturation Vent Mode Mechanical Rate FiO2 Tidal Volume Sodium 149 H Potassium 3.3 L Chloride 120 H Carbon Dioxide 17 L Anion Gap 15 BUN 48 H Creatinine 2.0 H Est GFR ( Amer) 40 Est GFR (Non-Af Amer) 33 POC Glucose (mg/dL) 357 H Random Glucose 298 H Calcium 7.3 L Total Bilirubin 0.3 AST 14 L D ALT 19 L D Alkaline Phosphatase 83 Total Protein 6.4 Albumin 2.2 L Globulin 4.2 H Albumin/Globulin Ratio 0.5 L Procalcitonin Ur Random Creatinine Ur Random Sodium Blood Type Antibody Screen BBK History Checked 11/21/16 11/21/16 11/21/16 07:49 11:12 13:30 WBC RBC Hgb Hct MCV MCH MCHC RDW Plt Count MPV Neut % (Auto) Lymph % (Auto) [place] % (Auto) Eos % (Auto) Baso % (Auto) Neut # Lymph # [place] # Eos # Baso # Neutrophils % (Manual) Band Neutrophils % Lymphocytes % (Manual) Monocytes % (Manual) Platelet Estimate Large Platelets Poikilocytosis (manual Anisocytosis (manual) Spherocytes PT 12.3 INR 1.2 APTT 33.7 pCO2 pO2 HCO3 ABG pH ABG Total CO2 ABG O2 Saturation ABG O2 Content ABG Base Excess ABG Hemoglobin ABG Carboxyhemoglobin POC ABG HHb (Measured) ABG Methemoglobin ABG O2 Capacity Torres Test A-a O2 Difference Hgb O2 Saturation Vent Mode Mechanical Rate FiO2 Tidal Volume Sodium Potassium Chloride Carbon Dioxide Anion Gap BUN Creatinine Est GFR ( Amer) Est GFR (Non-Af Amer) POC Glucose (mg/dL) 311 H 343 H Random Glucose Calcium Total Bilirubin AST ALT Alkaline Phosphatase Total Protein Albumin Globulin Albumin/Globulin Ratio Procalcitonin Ur Random Creatinine Ur Random Sodium Blood Type Antibody Screen BBK History Checked 11/21/16 11/21/16 11/21/16 13:30 13:30 14:00 WBC 10.9 H RBC 2.55 L Hgb 7.7 L Hct 23.6 L MCV 92.4 MCH 30.1 MCHC 32.6 L RDW 16.4 H Plt Count 110 L MPV 9.6 Neut % (Auto) 86.1 H Lymph % (Auto) 8.2 L [place] % (Auto) 5.0 Eos % (Auto) 0.0 Baso % (Auto) 0.7 Neut # 9.4 H Lymph # 0.9 L [place] # 0.5 Eos # 0.0 Baso # 0.1 Neutrophils % (Manual) Band Neutrophils % Lymphocytes % (Manual) Monocytes % (Manual) Platelet Estimate Large Platelets Poikilocytosis (manual Anisocytosis (manual) Spherocytes PT INR APTT pCO2 pO2 HCO3 ABG pH ABG Total CO2 ABG O2 Saturation ABG O2 Content ABG Base Excess ABG Hemoglobin ABG Carboxyhemoglobin POC ABG HHb (Measured) ABG Methemoglobin ABG O2 Capacity Torres Test A-a O2 Difference Hgb O2 Saturation Vent Mode Mechanical Rate FiO2 Tidal Volume Sodium Potassium Chloride Carbon Dioxide Anion Gap BUN Creatinine Est GFR ( Amer) Est GFR (Non-Af Amer) POC Glucose (mg/dL) Random Glucose Calcium Total Bilirubin AST ALT Alkaline Phosphatase Total Protein Albumin Globulin Albumin/Globulin Ratio Procalcitonin Ur Random Creatinine 55.6 Ur Random Sodium 49 Blood Type A POSITIVE Antibody Screen Negative BBK History Checked Patient has bt 11/21/16 15:58 WBC RBC Hgb Hct MCV MCH MCHC RDW Plt Count MPV Neut % (Auto) Lymph % (Auto) [place] % (Auto) Eos % (Auto) Baso % (Auto) Neut # Lymph # [place] # Eos # Baso # Neutrophils % (Manual) Band Neutrophils % Lymphocytes % (Manual) Monocytes % (Manual) Platelet Estimate Large Platelets Poikilocytosis (manual Anisocytosis (manual) Spherocytes PT INR APTT pCO2 pO2 HCO3 ABG pH ABG Total CO2 ABG O2 Saturation ABG O2 Content ABG Base Excess ABG Hemoglobin ABG Carboxyhemoglobin POC ABG HHb (Measured) ABG Methemoglobin ABG O2 Capacity Torres Test A-a O2 Difference Hgb O2 Saturation Vent Mode Mechanical Rate FiO2 Tidal Volume Sodium Potassium Chloride Carbon Dioxide Anion Gap BUN Creatinine Est GFR ( Amer) Est GFR (Non-Af Amer) POC Glucose (mg/dL) 207 H Random Glucose Calcium Total Bilirubin AST ALT Alkaline Phosphatase Total Protein Albumin Globulin Albumin/Globulin Ratio Procalcitonin Ur Random Creatinine Ur Random Sodium Blood Type Antibody Screen BBK History Checked - EKG Data EKG Interpreted by: Myself EKG shows normal: Sinus rhythm Rate: Normal - Impressions Impression: TODAYS EKG REVEALS SR WITH PVC, NORMALIZED ST SEGMENTS Assessment & Plan (1) Abnormal EKG Status: Resolved (2) Respiratory failure Status: Acute (3) Septic shock Status: Resolved Priority: High (4) GEORGINA (acute kidney injury) Status: Acute Priority: High (5) Diabetes mellitus type 2 in nonobese Status: Chronic Priority: High - Assessment and Plan (Free Text) Plan: EKG NORMAL CURRENTLY TROP X 3 REPLEAT LYTES IVF FOR SHOCK AND ARF ECHO IN AM CONT ABX AND ICU CARE 90 MIN TOTAL CARE TIME
--- NOTE | 2016-11-21 17:41 | US ---
PROCEDURE: Ultrasound of the Kidneys HISTORY: acute kidney injury COMPARISON: Correlation made with prior renal ultrasound dated 10/06/2016 TECHNIQUE: Sonogram of the kidneys. FINDINGS: RIGHT KIDNEY: Right kidney measures approximately 10.3 x 5.2 x 4.7 cm. . Normal in size, contour and echogenicity. No stone, solid mass lesion or hydronephrosis visualized. LEFT KIDNEY: Measures approximately 10.9 x 5.5 x 4.9. Normal size contour and parenchymal echogenicity. There is a small elliptical shaped 8.1 mm echogenic focus with posterior acoustic shadowing mid to lower pole left kidney that could represent nonobstructing calculus. No evidence of hydronephrosis. . Second echogenic focus lower pole left kidney seen on prior renal ultrasound not appreciated on this exam OTHER FINDINGS: Urinary bladder prevoid volume calculated at 61 cc IMPRESSION: Suspect small echogenic on nonobstructing calculus mid to lower pole left kidney.
[2016-11-22] MEDS: Piperacillin/Tazobact 3.375 GM in Sodium Chloride 0.9% 100 ML IVPB SCH ×3 (01:00→16:44)
[2016-11-22] MEDS: Potassium Chloride 20 mEq/15 ml LIQ UD PO SCH ×2 (05:00→12:45)
[2016-11-22] MEDS: Lactated Ringer's 1,000 ML IV SCH (05:08)
[2016-11-22 05:24] LABS: ABG ALLEN TEST YES; ABG MECHANICAL RATE 16; ARTERIAL BLOOD GAS MODE A/C; ARTERIAL BLOOD GAS O2 CAPACITY 11.6 mL/dL (16-24); ARTERIAL BLOOD GAS O2 CONTENT 11.6 ML/dL (15-23); ARTERIAL BLOOD GAS PH 7.45 (7.35-7.45); ARTERIAL BLOOD GAS PO2 223 mm/Hg (80-100); ARTERIAL BLOOD HGB O2 SAT 97.2 % (95.0-98.0); ATERIAL BLOOD GAS PEEP 3; CARBOXYHEMOGLOBIN 0.4 % (0.5-1.5); HHB 0.3 % (0.0-5.0); METHEMOGLOBIN 2.1 % (0.0-3.0)
[2016-11-22 06:02] LABS: HEMATOCRIT 22.9 % (35.0-51.0); MEAN CORPUSCULAR HEMOGLOBIN 30.1 pg (27.0-31.0); MEAN CORPUSCULAR HGB CONC 32.7 g/dL (33.0-37.0); RED CELL DISTRIBUTION WIDTH 16.7 % (11.5-14.5); WHITE BLOOD COUNT 11.1 K/uL (4.8-10.8)
[2016-11-22 06:32] LABS: CALCIUM 7.7 mg/dL (8.4-10.2); MAGNESIUM 1.7 MG/DL (1.6-2.3); POTASSIUM 2.9 MMOL/L (3.6-5.0)
[2016-11-22] MEDS: Insulin Regular 100 units/ml SC SCH ×4 (06:58→23:35)
[2016-11-22] MEDS: Albuterol-Ipratrop 3 mg / 0.5 (3 ml) UD INH SCH ×4 (08:00→19:27)
[2016-11-22 08:18] LABS: IRON 42 ug/dL (49-181)
[2016-11-22] MEDS: Magnesium Oxide 400 mg Tab UD PO SCH ×2 (09:54→16:42)
[2016-11-22] MEDS: Enoxaparin 30 mg Syringe SC SCH (09:54)
[2016-11-22] MEDS: Potassium CL 10mEq/100ml 100 ML IVPB SCH ×3 (09:55→12:44)
--- NOTE | 2016-11-22 10:05 | CP.PCM.PN ---
Subjective - Date & Time of Evaluation Date of Evaluation: 11/22/16 Time of Evaluation: 10:01 - Subjective Subjective: Patient intubated his in bed Vital sign noted Patient admitted with shortness of breath required to be intubated With the following history as noted PMHx from previous records: HTN, A Fib, Dyslipidemia, DMII, DM Neuropathy, Renal Insufficiency, PVD, anemia, Dementia, Osteomyelitis R foot bone base on 2015, Avascular Necrosis R Hip, Hx falls, Alcohol abuse. EKG shows: Sinus tachycardia, ST and T wave abnormality, consider lateral Ischemia. CXR on 11/20/16 shows: Pulmonary vascular congestive changes, progressed since prior study. Small L sided effusion with what probably represents early b/l left lobe alveolar-type infiltrates L > R. Objective - Vital Signs/Intake and Output Vital Signs (last 24 hours): Temp Pulse Resp BP Pulse Ox 98 F 83 16 123/55 L 100 11/22/16 08:00 11/22/16 08:00 11/22/16 08:00 11/22/16 08:00 11/22/16 08:00 Intake and Output: 11/22/16 11/22/16 06:59 18:59 Intake Total 2585 650 Balance 2585 650 - Medications Medications: Current Medications Acetaminophen (Tylenol 650 Mg Supp) 650 mg [place] Q4 PRN PRN Reason: Fever >100.4 F Acetaminophen (Tylenol 650mg/20.3ml Solution Ud) 650 mg PO Q4 PRN PRN Reason: Temperature Last Admin: 11/20/16 17:02 Dose: 650 mg Albuterol/Ipratropium (Duoneb 3 Mg/0.5 Mg (3 Ml) Ud) 3 ml INH RQID [facility] [place] Last Admin: 11/22/16 08:00 Dose: 3 ml Enoxaparin Sodium (Lovenox) 30 mg SC DAILY [facility] [place] PRN Reason: Protocol Last Admin: 11/22/16 09:54 Dose: 30 mg Vancomycin HCl 1 gm/ Sodium (Chloride) 250 mls @ 166.667 mls/hr IVPB DAILY [facility] [place] Last Admin: 11/22/16 09:57 Dose: 166.667 mls/hr Piperacillin Sod/Tazobactam (Sod 3.375 gm/ Sodium Chloride) 100 mls @ 100 mls/ hr IVPB Q8 [facility] [place] Last Admin: 11/22/16 09:57 Dose: 100 mls/hr Potassium Chloride (Potassium Chloride 10 Meq/100 Ml) 100 mls @ 100 mls/hr IVPB Q1 [facility] [place] Stop: 11/22/16 11:59 Last Admin: 11/22/16 09:55 Dose: 100 mls/hr Insulin Human Regular (Humulin R) 0 units SC ACCU-CHECK LARRY PRN Reason: Protocol Last Admin: 11/22/16 06:58 Dose: 6 units Magnesium Oxide (Mag-Ox) 400 mg PO BID [facility] [place] Last Admin: 11/22/16 09:54 Dose: 400 mg Pantoprazole Sodium (Protonix Inj) 40 mg IVP DAILY [facility] [place] Last Admin: 11/22/16 09:56 Dose: 40 mg Potassium Chloride (Potassium Chloride Oral Soln) 40 meq PO Q6 LARRY Stop: 11/22/16 10:01 Last Admin: 11/22/16 05:00 Dose: 40 meq - Labs Labs: 11/22/16 04:20 11/22/16 04:20 PT 12.3 Seconds (9.8-13.1) 11/21/16 13:30 INR 1.2 (0.9-1.2) 11/21/16 13:30 APTT 33.7 Seconds (25.6-37.1) 11/21/16 13:30 - Constitutional Appears: Non-toxic - ENT Exam ENT Exam: Mucous Membranes Moist - Respiratory Exam Respiratory Exam: absent: Chest Wall Tenderness - Cardiovascular Exam Cardiovascular Exam: absent: JVD, Rubs - GI/Abdominal Exam GI & Abdominal Exam: Normal Bowel Sounds - Back Exam Back Exam: absent: CVA tenderness (L), CVA tenderness (R) - Neurological Exam Neurological Exam: Altered Assessment and Plan (1) GEORGINA (acute kidney injury) Assessment & Plan: Acute kidney injury most likely related to multifactorial from the sepsis pneumonia among other things. Kidney function appears to be stable and improving somewhat Patient has hypernatremia related to dehydration continue IV fluid suggest to be D5 and half-normal saline Patient has hyperchloremia for the same reason as above with the treatment off IV fluid. Hypokalemia. Patient noted to have low potassium today potassium was order about to start now as discussed with the nurse in the ICU. Continue monitoring kidney function and hydration Status: Acute (2) Acute hypercapnic respiratory failure Status: Acute (3) Leukocytosis Status: Acute (4) Pneumonia Status: Acute
[2016-11-22] MEDS: Sucralfate 1 gm/10 ml Oral Susp UD PO SCH ×3 (12:46→22:15)
--- NOTE | 2016-11-22 13:14 | CARD ---
APPROVED REPORT EKG Measurement Heart [id number] MI [id number] <Conclusion> Sinus rhythm with premature atrial complexes Septal infarct, age undetermined Abnormal ECG artefact present
--- NOTE | 2016-11-22 13:26 | CP.PCM.PN ---
Subjective - Date & Time of Evaluation Date of Evaluation: 11/22/16 Time of Evaluation: 13:26 - Subjective Subjective: ID Note- Pt. seen and examined today in ICU. remains intubated but is awake and responds. denies any pain anywhere. remains afebrile Objective - Vital Signs/Intake and Output Vital Signs (last 24 hours): Temp Pulse Resp BP Pulse Ox 98.4 F 88 24 126/60 100 11/22/16 12:00 11/22/16 12:00 11/22/16 12:00 11/22/16 12:00 11/22/16 12:00 Intake and Output: 11/22/16 11/22/16 06:59 18:59 Intake Total 2585 750 Balance 2585 750 - Medications Medications: Current Medications Acetaminophen (Tylenol 650 Mg Supp) 650 mg MT Q4 PRN PRN Reason: Fever >100.4 F Acetaminophen (Tylenol 650mg/20.3ml Solution Ud) 650 mg PO Q4 PRN PRN Reason: Temperature Last Admin: 11/20/16 17:02 Dose: 650 mg Albuterol/Ipratropium (Duoneb 3 Mg/0.5 Mg (3 Ml) Ud) 3 ml INH RQID FORMERLY [facility], 1928–1983 Last Admin: 11/22/16 11:16 Dose: 3 ml Vancomycin HCl 1 gm/ Sodium (Chloride) 250 mls @ 166.667 mls/hr IVPB DAILY [facility]LY [facility], [facility]–1983 Last Admin: 11/22/16 09:57 Dose: 166.667 mls/hr Piperacillin Sod/Tazobactam (Sod 3.375 gm/ Sodium Chloride) 100 mls @ 100 mls/ hr IVPB Q8 FOR[facility], [facility]–1983 Last Admin: 11/22/16 09:57 Dose: 100 mls/hr Insulin Human Regular (Humulin R) 0 units SC ACCU-CHECK FORMERLY [facility], [facility]–1983 PRN Reason: Protocol Last Admin: 11/22/16 12:46 Dose: 2 units Magnesium Oxide (Mag-Ox) 400 mg PO BID [facility], [facility] Last Admin: 11/22/16 09:54 Dose: 400 mg Pantoprazole Sodium (Protonix Inj) 40 mg IVP DAILY [facility], [facility] Last Admin: 11/22/16 09:56 Dose: 40 mg Sucralfate (Carafate Oral Susp) 1 gm PO QID [facility], [facility] Last Admin: 11/22/16 12:46 Dose: 1 gm - Labs Labs: - Additional Findings Additional findings: - Constitutional Appears: Chronically Ill Additional comments: intubated but awake and responds - Head Exam Head Exam: ATRAUMATIC - ENT Exam Additional comments: ET tube and OG tube in place - Neck Exam Neck exam: Positive for: Full Rom - Respiratory Exam Additional comments: some scattered coarse breath sounds b/l - Cardiovascular Exam Cardiovascular Exam: RRR, +S1, +S2 - GI/Abdominal Exam GI & Abdominal Exam: Normal Bowel Sounds, Soft Additional comments: ND, NT - Extremities Exam Additional comments: unstageable b/l heel ulcers right third toe s/p amputation no discharge - Neurological Exam Additional comments: awake and follows some commands Laboratory Results - last 72 hr 11/20/16 11/20/16 11/20/16 01:13 01:40 01:40 WBC 15.9 H RBC 3.35 L Hgb 10.0 L Hct 31.4 L MCV 93.6 MCH 29.8 MCHC 31.8 L RDW 16.3 H Plt Count 159 MPV 9.3 Neut % (Auto) 84.6 H Lymph % (Auto) 12.5 L [place] % (Auto) 2.3 Eos % (Auto) 0.2 Baso % (Auto) 0.4 Neut # 13.4 H Lymph # 2.0 [place] # 0.4 Eos # 0.0 Baso # 0.1 Neutrophils % (Manual) Band Neutrophils % Lymphocytes % (Manual) Monocytes % (Manual) Platelet Estimate Large Platelets Poikilocytosis (manual Anisocytosis (manual) Spherocytes ESR PT INR APTT pCO2 pO2 HCO3 ABG pH ABG Total CO2 ABG O2 Saturation ABG O2 Content ABG Base Excess ABG Hemoglobin ABG Carboxyhemoglobin POC ABG HHb (Measured) ABG Methemoglobin ABG O2 Capacity Torres Test ABG Potassium VBG pH VBG pCO2 VBG HCO3 VBG Total CO2 VBG O2 Sat (Calc) VBG Base Excess VBG Potassium A-a O2 Difference Hgb O2 Saturation Glucose Lactate Vent Mode Mechanical Rate FiO2 Tidal Volume PEEP Crit Value Called To Crit Value Called By Crit Value Read Back Blood Gas Notified Time Sodium 146 Potassium 5.7 H Chloride 118 H Carbon Dioxide 19 L Anion Gap 15 BUN 32 H Creatinine 1.6 H Est GFR ( Amer) 52 Est GFR (Non-Af Amer) 43 POC Glucose (mg/dL) 201 H Random Glucose 170 H Calcium 7.5 L Magnesium Iron TIBC % Saturation Ferritin Total Bilirubin AST ALT Alkaline Phosphatase Lactate Dehydrogenase Troponin I 0.0580 NT-Pro-B Natriuret Pep 4060 H Total Protein Albumin Globulin Albumin/Globulin Ratio Procalcitonin Arterial Blood Potassium Venous Blood Potassium Urine Color Urine Clarity Urine pH Ur Specific [place] Urine Protein Urine Glucose (UA) Urine Ketones Urine Blood Urine Nitrate Urine Bilirubin Urine Urobilinogen Ur Leukocyte Esterase Urine RBC (Auto) Urine Microscopic WBC Ur Squamous Epith Cells Urine Bacteria Ur Random Creatinine Ur Random Sodium Stool Occult Blood C. difficile Tox B Gene Blood Type Antibody Screen BBK History Checked 11/20/16 11/20/16 11/20/16 01:57 02:24 04:52 WBC RBC Hgb Hct MCV MCH MCHC RDW Plt Count MPV Neut % (Auto) Lymph % (Auto) [place] % (Auto) Eos % (Auto) Baso % (Auto) Neut # Lymph # [place] # Eos # Baso # Neutrophils % (Manual) Band Neutrophils % Lymphocytes % (Manual) Monocytes % (Manual) Platelet Estimate Large Platelets Poikilocytosis (manual Anisocytosis (manual) Spherocytes ESR PT INR APTT pCO2 76 H* pO2 66 L 45 HCO3 17.6 L ABG pH 7.08 L* ABG Total CO2 24.8 ABG O2 Saturation 93.3 L ABG O2 Content ABG Base Excess -8.9 L ABG Hemoglobin ABG Carboxyhemoglobin POC ABG HHb (Measured) ABG Methemoglobin ABG O2 Capacity Torres Test Yes ABG Potassium 4.3 VBG pH 7.23 L VBG pCO2 49 VBG HCO3 18.6 VBG Total CO2 22.0 VBG O2 Sat (Calc) 82.9 H VBG Base Excess -7.2 L VBG Potassium 3.9 A-a O2 Difference 552.0 Hgb O2 Saturation Glucose 199 H 189 H Lactate 1.3 1.4 Vent Mode A/c Mechanical Rate 12 FiO2 100.0 21.0 Tidal Volume 500 PEEP 5 Crit Value Called To John wyatt md Crit Value Called By [id number] Crit Value Read Back Y Blood Gas Notified Time 227 Sodium 146.0 148.0 Potassium Chloride 120.0 H 120.0 H Carbon Dioxide Anion Gap BUN Creatinine Est GFR ( Amer) Est GFR (Non-Af Amer) POC Glucose (mg/dL) Random Glucose Calcium Magnesium Iron TIBC % Saturation Ferritin Total Bilirubin AST ALT Alkaline Phosphatase Lactate Dehydrogenase Troponin I NT-Pro-B Natriuret Pep Total Protein Albumin Globulin Albumin/Globulin Ratio Procalcitonin Arterial Blood Potassium 4.3 Venous Blood Potassium 3.9 Urine Color Yellow Urine Clarity Clear Urine pH 5.0 Ur Specific [place] 1.013 Urine Protein Negative Urine Glucose (UA) Neg Urine Ketones Negative Urine Blood Small Urine Nitrate Negative Urine Bilirubin Negative Urine Urobilinogen 0.2-1.0 Ur Leukocyte Esterase Neg Urine RBC (Auto) 43 H Urine Microscopic WBC 2 Ur Squamous Epith Cells < 1 Urine Bacteria Rare Ur Random Creatinine Ur Random Sodium Stool Occult Blood C. difficile Tox B Gene Blood Type Antibody Screen BBK History Checked 11/20/16 11/20/16 11/20/16 11:06 12:00 12:00 WBC 17.6 H RBC 3.24 L Hgb 9.7 L Hct 30.8 L MCV 95.1 H MCH 30.0 MCHC 31.5 L RDW 16.9 H Plt Count 143 MPV 10.2 Neut % (Auto) 84.0 H Lymph % (Auto) 11.4 L [place] % (Auto) 4.1 Eos % (Auto) 0.0 Baso % (Auto) 0.5 Neut # 14.8 H Lymph # 2.0 [place] # 0.7 Eos # 0.0 Baso # 0.1 Neutrophils % (Manual) Band Neutrophils % Lymphocytes % (Manual) Monocytes % (Manual) Platelet Estimate Large Platelets Poikilocytosis (manual Anisocytosis (manual) Spherocytes ESR PT INR APTT pCO2 pO2 HCO3 ABG pH ABG Total CO2 ABG O2 Saturation ABG O2 Content ABG Base Excess ABG Hemoglobin ABG Carboxyhemoglobin POC ABG HHb (Measured) ABG Methemoglobin ABG O2 Capacity Torres Test ABG Potassium VBG pH VBG pCO2 VBG HCO3 VBG Total CO2 VBG O2 Sat (Calc) VBG Base Excess VBG Potassium A-a O2 Difference Hgb O2 Saturation Glucose Lactate Vent Mode Mechanical Rate FiO2 Tidal Volume PEEP Crit Value Called To Crit Value Called By Crit Value Read Back Blood Gas Notified Time Sodium Potassium Chloride Carbon Dioxide Anion Gap BUN Creatinine Est GFR ( Amer) Est GFR (Non-Af Amer) POC Glucose (mg/dL) 166 H Random Glucose Calcium Magnesium Iron TIBC % Saturation Ferritin Total Bilirubin AST ALT Alkaline Phosphatase Lactate Dehydrogenase Troponin I NT-Pro-B Natriuret Pep Total Protein Albumin Globulin Albumin/Globulin Ratio Procalcitonin 10.65 H Arterial Blood Potassium Venous Blood Potassium Urine Color Urine Clarity Urine pH Ur Specific [place] Urine Protein Urine Glucose (UA) Urine Ketones Urine Blood Urine Nitrate Urine Bilirubin Urine Urobilinogen Ur Leukocyte Esterase Urine RBC (Auto) Urine Microscopic WBC Ur Squamous Epith Cells Urine Bacteria Ur Random Creatinine Ur Random Sodium Stool Occult Blood C. difficile Tox B Gene Blood Type Antibody Screen BBK History Checked 11/20/16 11/20/16 11/20/16 12:00 14:00 16:39 WBC RBC Hgb Hct MCV MCH MCHC RDW Plt Count MPV Neut % (Auto) Lymph % (Auto) [place] % (Auto) Eos % (Auto) Baso % (Auto) Neut # Lymph # [place] # Eos # Baso # Neutrophils % (Manual) Band Neutrophils % Lymphocytes % (Manual) Monocytes % (Manual) Platelet Estimate Large Platelets Poikilocytosis (manual Anisocytosis (manual) Spherocytes ESR PT INR APTT pCO2 pO2 HCO3 ABG pH ABG Total CO2 ABG O2 Saturation ABG O2 Content ABG Base Excess ABG Hemoglobin ABG Carboxyhemoglobin POC ABG HHb (Measured) ABG Methemoglobin ABG O2 Capacity Torres Test ABG Potassium VBG pH VBG pCO2 VBG HCO3 VBG Total CO2 VBG O2 Sat (Calc) VBG Base Excess VBG Potassium A-a O2 Difference Hgb O2 Saturation Glucose Lactate Vent Mode Mechanical Rate FiO2 Tidal Volume PEEP Crit Value Called To Crit Value Called By Crit Value Read Back Blood Gas Notified Time Sodium 150 H Potassium 3.7 Chloride 121 H Carbon Dioxide 16 L Anion Gap 17 BUN 35 H Creatinine 1.7 H Est GFR ( Amer) 48 Est GFR (Non-Af Amer) 40 POC Glucose (mg/dL) 206 H Random Glucose 133 H Calcium 7.4 L Magnesium Iron TIBC % Saturation Ferritin Total Bilirubin AST ALT Alkaline Phosphatase Lactate Dehydrogenase Troponin I NT-Pro-B Natriuret Pep Total Protein Albumin Globulin Albumin/Globulin Ratio Procalcitonin Arterial Blood Potassium Venous Blood Potassium Urine Color Urine Clarity Urine pH Ur Specific [place] Urine Protein Urine Glucose (UA) Urine Ketones Urine Blood Urine Nitrate Urine Bilirubin Urine Urobilinogen Ur Leukocyte Esterase Urine RBC (Auto) Urine Microscopic WBC Ur Squamous Epith Cells Urine Bacteria Ur Random Creatinine Ur Random Sodium Stool Occult Blood C. difficile Tox B Gene Detected H Blood Type Antibody Screen BBK History Checked 11/20/16 11/21/16 11/21/16 23:18 05:31 05:32 WBC RBC Hgb Hct MCV MCH MCHC RDW Plt Count MPV Neut % (Auto) Lymph % (Auto) [place] % (Auto) Eos % (Auto) Baso % (Auto) Neut # Lymph # [place] # Eos # Baso # Neutrophils % (Manual) Band Neutrophils % Lymphocytes % (Manual) Monocytes % (Manual) Platelet Estimate Large Platelets Poikilocytosis (manual Anisocytosis (manual) Spherocytes ESR PT INR APTT pCO2 25 L pO2 113 H HCO3 20.1 L ABG pH 7.44 ABG Total CO2 17.8 L ABG O2 Saturation 100.7 H ABG O2 Content 11.8 L ABG Base Excess -6.2 L ABG Hemoglobin 8.4 L ABG Carboxyhemoglobin 1.4 POC ABG HHb (Measured) -0.7 L ABG Methemoglobin 1.5 ABG O2 Capacity 11.7 L Torres Test Yes ABG Potassium VBG pH VBG pCO2 VBG HCO3 VBG Total CO2 VBG O2 Sat (Calc) VBG Base Excess VBG Potassium A-a O2 Difference 284.0 Hgb O2 Saturation 97.8 Glucose Lactate Vent Mode A/c Mechanical Rate 16 FiO2 60.0 Tidal Volume 500 PEEP Crit Value Called To Crit Value Called By Crit Value Read Back Blood Gas Notified Time Sodium Potassium Chloride Carbon Dioxide Anion Gap BUN Creatinine Est GFR ( Amer) Est GFR (Non-Af Amer) POC Glucose (mg/dL) 301 H 357 H Random Glucose Calcium Magnesium Iron TIBC % Saturation Ferritin Total Bilirubin AST ALT Alkaline Phosphatase Lactate Dehydrogenase Troponin I NT-Pro-B Natriuret Pep Total Protein Albumin Globulin Albumin/Globulin Ratio Procalcitonin Arterial Blood Potassium Venous Blood Potassium Urine Color Urine Clarity Urine pH Ur Specific [place] Urine Protein Urine Glucose (UA) Urine Ketones Urine Blood Urine Nitrate Urine Bilirubin Urine Urobilinogen Ur Leukocyte Esterase Urine RBC (Auto) Urine Microscopic WBC Ur Squamous Epith Cells Urine Bacteria Ur Random Creatinine Ur Random Sodium Stool Occult Blood C. difficile Tox B Gene Blood Type Antibody Screen BBK History Checked 11/21/16 11/21/16 11/21/16 06:00 06:00 07:49 WBC 12.7 H RBC 2.68 L Hgb 7.9 L Hct 24.7 L MCV 92.3 D MCH 29.6 MCHC 32.0 L RDW 16.2 H Plt Count 111 L D MPV 9.6 Neut % (Auto) 87.6 H Lymph % (Auto) 8.1 L [place] % (Auto) 3.3 Eos % (Auto) 0.0 Baso % (Auto) 1.0 Neut # 11.1 H Lymph # 1.0 [place] # 0.4 Eos # 0.0 Baso # 0.1 Neutrophils % (Manual) 79 H Band Neutrophils % 10 H Lymphocytes % (Manual) 9 L Monocytes % (Manual) 2 Platelet Estimate Slightly decreased L Large Platelets Present Poikilocytosis (manual Slight Anisocytosis (manual) Slight Spherocytes Slight ESR PT INR APTT pCO2 pO2 HCO3 ABG pH ABG Total CO2 ABG O2 Saturation ABG O2 Content ABG Base Excess ABG Hemoglobin ABG Carboxyhemoglobin POC ABG HHb (Measured) ABG Methemoglobin ABG O2 Capacity Torres Test ABG Potassium VBG pH VBG pCO2 VBG HCO3 VBG Total CO2 VBG O2 Sat (Calc) VBG Base Excess VBG Potassium A-a O2 Difference Hgb O2 Saturation Glucose Lactate Vent Mode Mechanical Rate FiO2 Tidal Volume PEEP Crit Value Called To Crit Value Called By Crit Value Read Back Blood Gas Notified Time Sodium 149 H Potassium 3.3 L Chloride 120 H Carbon Dioxide 17 L Anion Gap 15 BUN 48 H Creatinine 2.0 H Est GFR ( Amer) 40 Est GFR (Non-Af Amer) 33 POC Glucose (mg/dL) 311 H Random Glucose 298 H Calcium 7.3 L Magnesium Iron TIBC % Saturation Ferritin Total Bilirubin 0.3 AST 14 L D ALT 19 L D Alkaline Phosphatase 83 Lactate Dehydrogenase Troponin I NT-Pro-B Natriuret Pep Total Protein 6.4 Albumin 2.2 L Globulin 4.2 H Albumin/Globulin Ratio 0.5 L Procalcitonin Arterial Blood Potassium Venous Blood Potassium Urine Color Urine Clarity Urine pH Ur Specific [place] Urine Protein Urine Glucose (UA) Urine Ketones Urine Blood Urine Nitrate Urine Bilirubin Urine Urobilinogen Ur Leukocyte Esterase Urine RBC (Auto) Urine Microscopic WBC Ur Squamous Epith Cells Urine Bacteria Ur Random Creatinine Ur Random Sodium Stool Occult Blood C. difficile Tox B Gene Blood Type Antibody Screen BBK History Checked 11/21/16 11/21/1611/21/17 08:22 11:12 13:30 WBC RBC Hgb Hct MCV MCH MCHC RDW Plt Count MPV Neut % (Auto) Lymph % (Auto) [place] % (Auto) Eos % (Auto) Baso % (Auto) Neut # Lymph # [place] # Eos # Baso # Neutrophils % (Manual) Band Neutrophils % Lymphocytes % (Manual) Monocytes % (Manual) Platelet Estimate Large Platelets Poikilocytosis (manual Anisocytosis (manual) Spherocytes ESR PT 12.3 INR 1.2 APTT 33.7 pCO2 pO2 HCO3 ABG pH ABG Total CO2 ABG O2 Saturation ABG O2 Content ABG Base Excess ABG Hemoglobin ABG Carboxyhemoglobin POC ABG HHb (Measured) ABG Methemoglobin ABG O2 Capacity Torres Test ABG Potassium VBG pH VBG pCO2 VBG HCO3 VBG Total CO2 VBG O2 Sat (Calc) VBG Base Excess VBG Potassium A-a O2 Difference Hgb O2 Saturation Glucose Lactate Vent Mode Mechanical Rate FiO2 Tidal Volume PEEP Crit Value Called To Crit Value Called By Crit Value Read Back Blood Gas Notified Time Sodium Potassium Chloride Carbon Dioxide Anion Gap BUN Creatinine Est GFR ( Amer) Est GFR (Non-Af Amer) POC Glucose (mg/dL) 343 H Random Glucose Calcium Magnesium Iron TIBC % Saturation Ferritin Total Bilirubin AST ALT Alkaline Phosphatase Lactate Dehydrogenase Troponin I NT-Pro-B Natriuret Pep Total Protein Albumin Globulin Albumin/Globulin Ratio Procalcitonin Arterial Blood Potassium Venous Blood Potassium Urine Color Urine Clarity Urine pH Ur Specific [place] Urine Protein Urine Glucose (UA) Urine Ketones Urine Blood Urine Nitrate Urine Bilirubin Urine Urobilinogen Ur Leukocyte Esterase Urine RBC (Auto) Urine Microscopic WBC Ur Squamous Epith Cells Urine Bacteria Ur Random Creatinine Ur Random Sodium Stool Occult Blood Positive H C. difficile Tox B Gene Blood Type Antibody Screen BBK History Checked 11/21/16 11/21/16 11/21/16 13:30 13:30 14:00 WBC 10.9 H RBC 2.55 L Hgb 7.7 L Hct 23.6 L MCV 92.4 MCH 30.1 MCHC 32.6 L RDW 16.4 H Plt Count 110 L MPV 9.6 Neut % (Auto) 86.1 H Lymph % (Auto) 8.2 L [place] % (Auto) 5.0 Eos % (Auto) 0.0 Baso % (Auto) 0.7 Neut # 9.4 H Lymph # 0.9 L [place] # 0.5 Eos # 0.0 Baso # 0.1 Neutrophils % (Manual) Band Neutrophils % Lymphocytes % (Manual) Monocytes % (Manual) Platelet Estimate Large Platelets Poikilocytosis (manual Anisocytosis (manual) Spherocytes ESR PT INR APTT pCO2 pO2 HCO3 ABG pH ABG Total CO2 ABG O2 Saturation ABG O2 Content ABG Base Excess ABG Hemoglobin ABG Carboxyhemoglobin POC ABG HHb (Measured) ABG Methemoglobin ABG O2 Capacity Torres Test ABG Potassium VBG pH VBG pCO2 VBG HCO3 VBG Total CO2 VBG O2 Sat (Calc) VBG Base Excess VBG Potassium A-a O2 Difference Hgb O2 Saturation Glucose Lactate Vent Mode Mechanical Rate FiO2 Tidal Volume PEEP Crit Value Called To Crit Value Called By Crit Value Read Back Blood Gas Notified Time Sodium Potassium Chloride Carbon Dioxide Anion Gap BUN Creatinine Est GFR ( Amer) Est GFR (Non-Af Amer) POC Glucose (mg/dL) Random Glucose Calcium Magnesium Iron TIBC % Saturation Ferritin Total Bilirubin AST ALT Alkaline Phosphatase Lactate Dehydrogenase Troponin I NT-Pro-B Natriuret Pep Total Protein Albumin Globulin Albumin/Globulin Ratio Procalcitonin Arterial Blood Potassium Venous Blood Potassium Urine Color Urine Clarity Urine pH Ur Specific [place] Urine Protein Urine Glucose (UA) Urine Ketones Urine Blood Urine Nitrate Urine Bilirubin Urine Urobilinogen Ur Leukocyte Esterase Urine RBC (Auto) Urine Microscopic WBC Ur Squamous Epith Cells Urine Bacteria Ur Random Creatinine 55.6 Ur Random Sodium 49 Stool Occult Blood C. difficile Tox B Gene Blood Type A POSITIVE Antibody Screen Negative BBK History Checked Patient has bt 11/21/16 11/21/16 11/21/16 15:58 18:00 23:01 WBC RBC Hgb Hct MCV MCH MCHC RDW Plt Count MPV Neut % (Auto) Lymph % (Auto) [place] % (Auto) Eos % (Auto) Baso % (Auto) Neut # Lymph # [place] # Eos # Baso # Neutrophils % (Manual) Band Neutrophils % Lymphocytes % (Manual) Monocytes % (Manual) Platelet Estimate Large Platelets Poikilocytosis (manual Anisocytosis (manual) Spherocytes ESR PT INR APTT pCO2 pO2 HCO3 ABG pH ABG Total CO2 ABG O2 Saturation ABG O2 Content ABG Base Excess ABG Hemoglobin ABG Carboxyhemoglobin POC ABG HHb (Measured) ABG Methemoglobin ABG O2 Capacity Torres Test ABG Potassium VBG pH VBG pCO2 VBG HCO3 VBG Total CO2 VBG O2 Sat (Calc) VBG Base Excess VBG Potassium A-a O2 Difference Hgb O2 Saturation Glucose Lactate Vent Mode Mechanical Rate FiO2 Tidal Volume PEEP Crit Value Called To Crit Value Called By Crit Value Read Back Blood Gas Notified Time Sodium Potassium Chloride Carbon Dioxide Anion Gap BUN Creatinine Est GFR ( Amer) Est GFR (Non-Af Amer) POC Glucose (mg/dL) 207 H 310 H Random Glucose Calcium Magnesium Iron TIBC % Saturation Ferritin Total Bilirubin AST ALT Alkaline Phosphatase Lactate Dehydrogenase Troponin I 0.0360 NT-Pro-B Natriuret Pep Total Protein Albumin Globulin Albumin/Globulin Ratio Procalcitonin Arterial Blood Potassium Venous Blood Potassium Urine Color Urine Clarity Urine pH Ur Specific [place] Urine Protein Urine Glucose (UA) Urine Ketones Urine Blood Urine Nitrate Urine Bilirubin Urine Urobilinogen Ur Leukocyte Esterase Urine RBC (Auto) Urine Microscopic WBC Ur Squamous Epith Cells Urine Bacteria Ur Random Creatinine Ur Random Sodium Stool Occult Blood C. difficile Tox B Gene Blood Type Antibody Screen BBK History Checked 11/22/16 11/22/16 11/22/16 01:00 04:20 04:20 WBC 11.1 H RBC 2.49 L Hgb 7.5 L Hct 22.9 L MCV 92.0 MCH 30.1 MCHC 32.7 L RDW 16.7 H Plt Count 106 L MPV Neut % (Auto) Lymph % (Auto) [place] % (Auto) Eos % (Auto) Baso % (Auto) Neut # Lymph # [place] # Eos # Baso # Neutrophils % (Manual) Band Neutrophils % Lymphocytes % (Manual) Monocytes % (Manual) Platelet Estimate Large Platelets Poikilocytosis (manual Anisocytosis (manual) Spherocytes ESR 106 H PT INR APTT pCO2 pO2 HCO3 ABG pH ABG Total CO2 ABG O2 Saturation ABG O2 Content ABG Base Excess ABG Hemoglobin ABG Carboxyhemoglobin POC ABG HHb (Measured) ABG Methemoglobin ABG O2 Capacity Torres Test ABG Potassium VBG pH VBG pCO2 VBG HCO3 VBG Total CO2 VBG O2 Sat (Calc) VBG Base Excess VBG Potassium A-a O2 Difference Hgb O2 Saturation Glucose Lactate Vent Mode Mechanical Rate FiO2 Tidal Volume PEEP Crit Value Called To Crit Value Called By Crit Value Read Back Blood Gas Notified Time Sodium 147 Potassium 2.9 L Chloride 120 H Carbon Dioxide 18 L Anion Gap 12 BUN 49 H Creatinine 1.8 H Est GFR ( Amer) 45 Est GFR (Non-Af Amer) 37 POC Glucose (mg/dL) Random Glucose 267 H Calcium 7.7 L Magnesium 1.7 Iron TIBC % Saturation Ferritin 1820.0 Total Bilirubin AST ALT Alkaline Phosphatase Lactate Dehydrogenase 399 Troponin I 0.0290 NT-Pro-B Natriuret Pep Total Protein Albumin Globulin Albumin/Globulin Ratio Procalcitonin Arterial Blood Potassium Venous Blood Potassium Urine Color Urine Clarity Urine pH Ur Specific [place] Urine Protein Urine Glucose (UA) Urine Ketones Urine Blood Urine Nitrate Urine Bilirubin Urine Urobilinogen Ur Leukocyte Esterase Urine RBC (Auto) Urine Microscopic WBC Ur Squamous Epith Cells Urine Bacteria Ur Random Creatinine Ur Random Sodium Stool Occult Blood C. difficile Tox B Gene Blood Type Antibody Screen BBK History Checked 11/22/16 11/22/16 11/22/16 04:48 05:21 08:00 WBC RBC Hgb Hct MCV MCH MCHC RDW Plt Count MPV Neut % (Auto) Lymph % (Auto) [place] % (Auto) Eos % (Auto) Baso % (Auto) Neut # Lymph # [place] # Eos # Baso # Neutrophils % (Manual) Band Neutrophils % Lymphocytes % (Manual) Monocytes % (Manual) Platelet Estimate Large Platelets Poikilocytosis (manual Anisocytosis (manual) Spherocytes ESR PT INR APTT pCO2 26 L pO2 223 H HCO3 21.0 ABG pH 7.45 ABG Total CO2 18.9 L ABG O2 Saturation 99.7 H ABG O2 Content 11.6 L ABG Base Excess -5.1 L ABG Hemoglobin 8.1 L ABG Carboxyhemoglobin 0.4 L POC ABG HHb (Measured) 0.3 ABG Methemoglobin 2.1 ABG O2 Capacity 11.6 L Torres Test Yes ABG Potassium VBG pH VBG pCO2 VBG HCO3 VBG Total CO2 VBG O2 Sat (Calc) VBG Base Excess VBG Potassium A-a O2 Difference 101.0 Hgb O2 Saturation 97.2 Glucose Lactate Vent Mode A/c Mechanical Rate 16 FiO2 50.0 Tidal Volume 500 PEEP 3 Crit Value Called To Crit Value Called By Crit Value Read Back Blood Gas Notified Time Sodium Potassium Chloride Carbon Dioxide Anion Gap BUN Creatinine Est GFR ( Amer) Est GFR (Non-Af Amer) POC Glucose (mg/dL) 286 H Random Glucose Calcium Magnesium Iron 42 L TIBC 132 L % Saturation 32 Ferritin Total Bilirubin AST ALT Alkaline Phosphatase Lactate Dehydrogenase Troponin I NT-Pro-B Natriuret Pep Total Protein Albumin Globulin Albumin/Globulin Ratio Procalcitonin Arterial Blood Potassium Venous Blood Potassium Urine Color Urine Clarity Urine pH Ur Specific [place] Urine Protein Urine Glucose (UA) Urine Ketones Urine Blood Urine Nitrate Urine Bilirubin Urine Urobilinogen Ur Leukocyte Esterase Urine RBC (Auto) Urine Microscopic WBC Ur Squamous Epith Cells Urine Bacteria Ur Random Creatinine Ur Random Sodium Stool Occult Blood C. difficile Tox B Gene Blood Type Antibody Screen BBK History Checked 11/22/16 11:20 WBC RBC Hgb Hct MCV MCH MCHC RDW Plt Count MPV Neut % (Auto) Lymph % (Auto) [place] % (Auto) Eos % (Auto) Baso % (Auto) Neut # Lymph # [place] # Eos # Baso # Neutrophils % (Manual) Band Neutrophils % Lymphocytes % (Manual) Monocytes % (Manual) Platelet Estimate Large Platelets Poikilocytosis (manual Anisocytosis (manual) Spherocytes ESR PT INR APTT pCO2 pO2 HCO3 ABG pH ABG Total CO2 ABG O2 Saturation ABG O2 Content ABG Base Excess ABG Hemoglobin ABG Carboxyhemoglobin POC ABG HHb (Measured) ABG Methemoglobin ABG O2 Capacity Torres Test ABG Potassium VBG pH VBG pCO2 VBG HCO3 VBG Total CO2 VBG O2 Sat (Calc) VBG Base Excess VBG Potassium A-a O2 Difference Hgb O2 Saturation Glucose Lactate Vent Mode Mechanical Rate FiO2 Tidal Volume PEEP Crit Value Called To Crit Value Called By Crit Value Read Back Blood Gas Notified Time Sodium Potassium Chloride Carbon Dioxide Anion Gap BUN Creatinine Est GFR ( Amer) Est GFR (Non-Af Amer) POC Glucose (mg/dL) 193 H Random Glucose Calcium Magnesium Iron TIBC % Saturation Ferritin Total Bilirubin AST ALT Alkaline Phosphatase Lactate Dehydrogenase Troponin I NT-Pro-B Natriuret Pep Total Protein Albumin Globulin Albumin/Globulin Ratio Procalcitonin Arterial Blood Potassium Venous Blood Potassium Urine Color Urine Clarity Urine pH Ur Specific [place] Urine Protein Urine Glucose (UA) Urine Ketones Urine Blood Urine Nitrate Urine Bilirubin Urine Urobilinogen Ur Leukocyte Esterase Urine RBC (Auto) Urine Microscopic WBC Ur Squamous Epith Cells Urine Bacteria Ur Random Creatinine Ur Random Sodium Stool Occult Blood C. difficile Tox B Gene Blood Type Antibody Screen BBK History Checked Microbiology 11/21/16 10:00 Trachasp Gram Stain - Preliminary 11/20/16 15:00 Nose MRSA Culture (Admit) - Final MRSA NOT DETECTED 11/20/16 10:00 Blood-Venous Blood Culture - Preliminary NO GROWTH AFTER 48 HOURS 11/20/16 01:57 Urine,Triplett Urine Culture - Final No Growth (<1,000 CFU/ML) Accession No. : [id number] Patient Name / ID : GRACE ANTON / [id number] Exam Date : 11/21/2016 05:31:35 ( Approved ) Study Comment : Sex / Age : M / 71Y Creator : Manfred Strickland MD Dictator : Manfred Strickland MD Stunt Person : Vocal Teacher : Manfred Strickland MD Approver2 : Report Date : 11/21/2016 11:50:58 My Comment : HISTORY: Pt's intubated COMPARISON: Comparison chest 11/20/2016 FINDINGS: LUNGS: Re- demonstrated is in situ ETT, tip of which lies approximately 6.43 cm above shira. NGT is present, the tip of which has not been included on this film though distal aspect does lie well below EG junction. Right IJ central venous line with tip in the SVC unchanged. Re- demonstrated are mild pulmonary vascular congestive changes with what probably represents some mild of bilateral mid to lower lobe alveolar-type infiltrates. PLEURA: No significant pleural effusion identified, no pneumothorax apparent. CARDIOVASCULAR: Normal. OSSEOUS STRUCTURES: No significant abnormalities. VISUALIZED UPPER ABDOMEN: Normal. OTHER FINDINGS: None. IMPRESSION: Support lines and tubes as above. Re- demonstrated are mild pulmonary vascular congestive changes with what probably represents some mild of bilateral mid to lower lobe alveolar-type infiltrates. Assessment and Plan (1) Respiratory failure Status: Acute (2) Septic shock Status: Resolved (3) GEORGINA (acute kidney injury) Status: Acute (4) Leukocytosis Status: Acute - Assessment and Plan (Free Text) Assessment: A/P- 71 year old male [place] with multiple medical conditions including DM II, HTN, previous e.fecalis bacteremia in 10/2016, h/o right third toe amputation for OM admitted with sob and hypoxemia and is intubated and on pressors. clinically somewhat better. off pressors. intubated but is awake afebrile leukocytosis trending down blood cx- neg urine cx- neg 1.hypoxemia 2.respiratory failure/intubated 3.leukocytosis 4.IZABELLA 5.pneumonia Plan- advise to continue with empiric broad spectrum abx coverage with vanco and zosyn day #3. keep vanco trough <15. check sputum cx. ICU time 45 minutes.
--- NOTE | 2016-11-22 16:49 | CP.PCM.PN ---
Subjective - Date & Time of Evaluation Date of Evaluation: 11/22/16 Time of Evaluation: 12:00 - Subjective Subjective: F/U Respiratory failure. Pt awake, still intubated, Hgb in 7.5 today. Objective - Vital Signs/Intake and Output Vital Signs (last 24 hours): Temp Pulse Resp BP Pulse Ox 98.7 F 88 21 122/60 100 11/22/16 15:39 11/22/16 15:39 11/22/16 15:39 11/22/16 15:39 11/22/16 15:39 Intake and Output: 11/22/16 11/22/16 06:59 18:59 Intake Total 2585 1400 Balance 2585 1400 - Medications Medications: Current Medications Acetaminophen (Tylenol 650 Mg Supp) 650 mg [place] Q4 PRN PRN Reason: Fever >100.4 F Acetaminophen (Tylenol 650mg/20.3ml Solution Ud) 650 mg PO Q4 PRN PRN Reason: Temperature Last Admin: 11/20/16 17:02 Dose: 650 mg Albuterol/Ipratropium (Duoneb 3 Mg/0.5 Mg (3 Ml) Ud) 3 ml INH RQID [facility] Last Admin: 11/22/16 15:45 Dose: 3 ml Vancomycin HCl 1 gm/ Sodium (Chloride) 250 mls @ 166.667 mls/hr IVPB DAILY [facility] Last Admin: 11/22/16 09:57 Dose: 166.667 mls/hr Piperacillin Sod/Tazobactam (Sod 3.375 gm/ Sodium Chloride) 100 mls @ 100 mls/ hr IVPB Q8 [facility] Last Admin: 11/22/16 16:44 Dose: 100 mls/hr Insulin Human Regular (Humulin R) 0 units SC ACCU-CHECK [facility] PRN Reason: Protocol Last Admin: 11/22/16 16:42 Dose: 2 units Magnesium Oxide (Mag-Ox) 400 mg PO BID [facility] Last Admin: 11/22/16 16:42 Dose: 400 mg Metronidazole (Flagyl) 500 mg NG Q8 [facility] Pantoprazole Sodium (Protonix Inj) 40 mg IVP DAILY [facility] Last Admin: 11/22/16 09:56 Dose: 40 mg Sucralfate (Carafate Oral Susp) 1 gm PO QID [facility] Last Admin: 11/22/16 16:40 Dose: 1 gm - Labs Labs: 11/22/16 04:20 11/22/16 04:20 PT 12.3 Seconds (9.8-13.1) 11/21/16 13:30 INR 1.2 (0.9-1.2) 11/21/16 13:30 APTT 33.7 Seconds (25.6-37.1) 11/21/16 13:30 - Constitutional Appears: Chronically Ill - Head Exam Head Exam: NORMAL INSPECTION - Eye Exam Eye Exam: PERRL - ENT Exam ENT Exam: Normal Exam Additional comments: Intubated - Neck Exam Neck Exam: Normal Inspection - Respiratory Exam Respiratory Exam: Decreased Breath Sounds (b/l), Rhonchi (b/l) - Cardiovascular Exam Cardiovascular Exam: REGULAR RHYTHM - GI/Abdominal Exam GI & Abdominal Exam: Soft, Normal Bowel Sounds - Extremities Exam Additional comments: Unstageable ulcers: B/L heels, R lateral and medial ankle, R lateral foot, pressure ulcer R hip. R third toe s/p amputation. - Back Exam Additional comments: Sacral pressure ulcer unstageable, R buttock. - Neurological Exam Additional comments: Intubated, open eyes to deep painful stimuli. - Psychiatric Exam Psychiatric exam: Flat Affect - Skin Skin Exam: Warm Assessment and Plan (1) Acute hypercapnic respiratory failure Status: Acute (2) Dehydration Status: Acute (3) Pneumonia Status: Acute (4) Septic shock Status: Acute (5) Hyperkalemia Status: Acute (6) GEORGINA (acute kidney injury) Status: Acute (7) Type 2 diabetes mellitus with hyperglycemia Status: Chronic (8) HTN (hypertension) Status: Chronic (9) C. difficile colitis Status: Acute - Assessment and Plan (Free Text) Plan: F/U Trachasp C_S. Continue Vanco, Zosyn, Duoneb, Humalin and rest of Tx. Pt seen by Nephrology, consult appreciated. ICU Time: 40 min.
--- NOTE | 2016-11-22 21:56 | CP.PCM.PN ---
Subjective - Date & Time of Evaluation Date of Evaluation: 11/22/16 Time of Evaluation: 18:00 - Subjective Subjective: remains intubated. hemodynamically stable. Objective - Vital Signs/Intake and Output Vital Signs (last 24 hours): Temp Pulse Resp BP Pulse Ox 98.9 F 110 H 26 H 141/63 100 11/22/16 20:00 11/22/16 20:00 11/22/16 20:00 11/22/16 20:00 11/22/16 20:00 Intake and Output: 11/22/16 11/23/16 18:59 06:59 Intake Total 2060 250 Output Total 750 Balance 1310 250 - Medications Medications: Current Medications Acetaminophen (Tylenol 650 Mg Supp) 650 mg [place] Q4 PRN PRN Reason: Fever >100.4 F Acetaminophen (Tylenol 650mg/20.3ml Solution Ud) 650 mg PO Q4 PRN PRN Reason: Temperature Last Admin: 11/20/16 17:02 Dose: 650 mg Albuterol/Ipratropium (Duoneb 3 Mg/0.5 Mg (3 Ml) Ud) 3 ml INH RQID [facility] Last Admin: 11/22/16 19:27 Dose: 3 ml Vancomycin HCl 1 gm/ Sodium (Chloride) 250 mls @ 166.667 mls/hr IVPB DAILY [facility] Last Admin: 11/22/16 09:57 Dose: 166.667 mls/hr Piperacillin Sod/Tazobactam (Sod 3.375 gm/ Sodium Chloride) 100 mls @ 100 mls/ hr IVPB Q8 [facility] Last Admin: 11/22/16 16:44 Dose: 100 mls/hr Insulin Human Regular (Humulin R) 0 units SC ACCU-CHECK [facility] PRN Reason: Protocol Last Admin: 11/22/16 16:42 Dose: 2 units Magnesium Oxide (Mag-Ox) 400 mg PO BID [facility] Last Admin: 11/22/16 16:42 Dose: 400 mg Metronidazole (Flagyl) 500 mg NG Q8 [facility] Last Admin: 11/22/16 17:55 Dose: 500 mg Pantoprazole Sodium (Protonix Inj) 40 mg IVP DAILY [facility] Last Admin: 11/22/16 09:56 Dose: 40 mg Sucralfate (Carafate Oral Susp) 1 gm PO QID [facility] Last Admin: 11/22/16 16:40 Dose: 1 gm - Labs Labs: 11/22/16 04:20 11/22/16 04:20 PT 12.3 Seconds (9.8-13.1) 11/21/16 13:30 INR 1.2 (0.9-1.2) 11/21/16 13:30 APTT 33.7 Seconds (25.6-37.1) 11/21/16 13:30 Assessment and Plan (1) Abnormal EKG Status: Resolved (2) Respiratory failure Status: Acute (3) Septic shock Status: Resolved (4) GEORGINA (acute kidney injury) Status: Acute (5) Diabetes mellitus type 2 in nonobese Status: Chronic - Assessment and Plan (Free Text) Plan: continue current care. monitor labs and ekg trop neg x 3 repleat mag await echo vent management per pulm/cc 60 min
--- NOTE | 2016-11-22 22:04 | PN ---
DATE: 11/22/2016 LOCATION: The patient is in ICU bed #424. TIME SPENT: 40 minutes. SUBJECTIVE: The patient is seen and examined at the bedside. Case was discussed in a.m. rounds. Events since admission reviewed. This is a 79-year-old male from [facility], admitted with hypercapnic hypoxic respiratory failure, possible healthcare-associated pneumonia, multiple sacral as well as unstagable wounds of both lower extremities, dementia, former alcohol user, nicotine dependence. Remains intubated, on medical ventilation. AC/PRVC rate 16, tidal volume of 500, FIO2 of 60%, PEEP of 5. Exhaled rate 19, exhaled tidal volume of 490 minute, evaluation 10.1 liters, saturating 100. Main airway pressure of 5, peak airway pressure 7 and end-tidal CO2 of 23. VITAL SIGNS: Temperature 98%, heart rate 88, blood pressure 118/63, mean arterial pressure 81, saturating 100%. Intake of 5215 and output 250. Positive balance 4965. Weight 180 pounds. PHYSICAL EXAMINATION HEAD, EYES, EARS, NOSE AND THROAT: Pupils are reactive. Conjunctivae are pink. Sclerae white. NECK: Neck supple. Endotracheal tube in place. No secretion noted. CHEST: Bilateral breath sounds. Diminished in intensity. Scattered rhonchi. HEART: Rhythm regular. ABDOMEN: Bowel sounds present, soft. Liver and spleen not palpable. Bladder not distended, draining clear urine. SKIN: With unstagable breakdown on the sacral as well as on both feet. NEUROLOGIC: More wakeful than yesterday, opens eyes, able to follow simple commands, however, noted to be lethargic. CURRENT MEDICATIONS: Tylenol 650 mg every 4 hours p.r.n., DuoNeb 3 mL via nebulizer q.i.d., Lovenox 30 mg subcutaneous daily, Accu-Chek with regular insulin coverage, magnesium oxide 400 mg twice daily, Protonix 40 mg IV daily, Zosyn 3.375 g IV every 8 hours, vancomycin 1 g IV daily, potassium supplement. MICROBIOLOGY: Blood culture, no growth reported. Urine culture, no growth reported. Renal ultrasound, non-obstructing stone at mid to lower pole of left kidney without hydronephrosis. IMPRESSION: 1. Neurologic; resolving septic toxic metabolic encephalopathy, history of alcohol dependence in the past, suspected early dementia at baseline. 2. Pulmonary; respiratory failure, on ventilator, reduced ventilatory support, reduced FIO2, monitor tolerance, attempt spontaneous breathing trial, suspected healthcare-associated pneumonia. 3. Cardiac; lateral and high-lateral wall ischemia, now resolved, off pressor support. 4. Infectious disease; suspected pneumonia, multiple skin breakdown in sacral as well as on both feet, history of peripheral vascular disease, status post amputation of right third. 5. Renal; acute on chronic renal insufficiency, improving on IV hydration. 6. Hypokalemia, on potassium supplement. 7. Hypomagnesemia, on magnesium supplement. 8. Gastrointestinal; continue feeding as tolerated. Maintain blood sugar at less than 180. Accu-Chek with regular insulin coverage. 9. Hematology; anemia of chronic disease, stool occult blood positive, suspect stress gastritis, monitor hemoglobin, further drop may need transfusion. Obtain GI evaluation. Keep head of bed at 39 degrees. GI prophylaxis. Hold anticoagulation secondary to positive occult blood and anemia. Mechanical compression prophylaxis. Heri Izquierdo MD
[2016-11-23] MEDS: Acetaminophen 650mg/20.3ml solution UD PO PRN ×3 (00:15→23:50)
[2016-11-23] MEDS: Piperacillin/Tazobact 3.375 GM in Sodium Chloride 0.9% 100 ML IVPB SCH ×3 (00:17→16:25)
[2016-11-23 04:15] LABS: CHLORIDE URINE 33 mmol/L (32-290)
[2016-11-23 05:15] LABS: ABG ALLEN TEST YES; ABG MECHANICAL RATE 12; ARTERIAL BLOOD GAS MODE A/C; ARTERIAL BLOOD GAS O2 CONTENT 10.9 ML/dL (15-23); ARTERIAL BLOOD GAS PH 7.44 (7.35-7.45); ARTERIAL BLOOD GAS PO2 141 mm/Hg (80-100); ARTERIAL BLOOD HGB O2 SAT 96.9 % (95.0-98.0); ATERIAL BLOOD GAS PEEP 5; CARBOXYHEMOGLOBIN 0.6 % (0.5-1.5); HHB 0.6 % (0.0-5.0); METHEMOGLOBIN 1.9 % (0.0-3.0)
[2016-11-23 05:36] LABS: MEAN CELL VOLUME 92.4 fl (80.0-94.0); MEAN CORPUSCULAR HEMOGLOBIN 30.4 pg (27.0-31.0); MEAN CORPUSCULAR HGB CONC 32.9 g/dL (33.0-37.0); RED CELL DISTRIBUTION WIDTH 16.7 % (11.5-14.5); WHITE BLOOD COUNT 10.8 K/uL (4.8-10.8)
[2016-11-23 05:39] LABS: CALCIUM 7.5 mg/dL (8.4-10.2); POTASSIUM 4.2 MMOL/L (3.6-5.0)
[2016-11-23] MEDS: Insulin Regular 100 units/ml SC SCH ×4 (06:51→23:10)
[2016-11-23] MEDS: Albuterol-Ipratrop 3 mg / 0.5 (3 ml) UD INH SCH ×4 (07:59→19:03)
[2016-11-23] MEDS: Sucralfate 1 gm/10 ml Oral Susp UD PO SCH ×4 (08:22→23:58)
[2016-11-23] MEDS: Magnesium Oxide 400 mg Tab UD PO SCH ×2 (08:23→16:24)
--- NOTE | 2016-11-23 09:36 | PQF GENQUE ---
This form is a permanent part of the medical record 11/23/16 Dr. Day, Documentation in the H&P is as follows: Multiple unstageable ulcers: B/L heels, R lateral and medial ankle, R lateral foot. Pressure ulcer R hip, Sacral pressure ulcer unstageable , R buttock. Wound care consult ordered with recommendations. Please clarify if all the ulcers are pressure related or other etiology if known. Clarification of your documentation is requested to better reflect the severity of illness and intensity of treatment of your patient. Indicators present [] Specify: [] [] Specify: [] [] Specify: [] [] Specify: [] Location in the medical record that reflects the above clinical findings: [] Treatment Provided: [] PHYSICIAN'S RESPONSE Please document cause or type of skin ulcer: [] Non-pressure ulcer associated with: Atherosclerosis of lower extremities Chronic venous hypertension Diabetes Postphlebitic syndrome Postthrombotic syndrome Varicose veins Other (please specify) Unknown [] Other (please specify) [] Clinically unable to determine [] Unknown [] Pressure related Based on your medical judgment of the clinical indicators outlined above please clarify the following: [] Practitioner response [] If unable to determine, please check the box, sign and date. Present On Admission (POA) Indicator: [] Present at the time of admission [] Not present at the time of admission [] Clinically Undetermined In responding to this query, please exercise your independent professional judgment. The fact that a question is asked does not imply that any particular answer is desired or expected. Thank you for your clarification on this documentation. If you have any questions please call:[phone] * Thank you, Aimee Gunn RN CDMP MTD[facility]
--- NOTE | 2016-11-23 10:02 | RAD ---
HISTORY: Intubated. COMPARISON: 11/21/2016 FINDINGS: The endotracheal tube terminates 4 cm proximal to the shira. The nasogastric tube terminates in the stomach. The right IJV line terminates at the cavoatrial junction. LUNGS: There is severe pulmonary venous congestion. There is confluent airspace disease in the left lower lobe. PLEURA: No significant pleural effusion identified, no pneumothorax apparent. CARDIOVASCULAR: The heart is normal in size. Atherosclerotic aortic arch calcifications are present. OSSEOUS STRUCTURES: No significant abnormalities. VISUALIZED UPPER ABDOMEN: Normal. OTHER FINDINGS: None. IMPRESSION: 1. Stable position of line and tubes. 2. Persistent severe pulmonary venous congestion. Suspect atelectasis/pneumonia in the left lower lobe. Follow-up is advised.
--- NOTE | 2016-11-23 10:06 | PQF GENQUE ---
This form is a permanent part of the medical record 11/23/16 Dr. Day, Please clarify the Type of Pneumonia if known. Admitted with severe SOB and intubated in the field. Became hypotensive in the ER. Temp 102.3, HR 107. CXR on 11/20 shows pulmonary vascular congestive changes , progressed since prior study. Small L sided effusion with what probably represents early b/l left lobe alveolar type infiltrates L>R. Pro BNP 4060. Sputum CS growing Gram negative Rods light growth.. Treated with Vancomycin and Zosyn. Clarification of your documentation is requested to better reflect the severity of illness and intensity of treatment of your patient. PHYSICIAN'S RESPONSE 1. Please specify type of pneumonia: Aspiration pneumonia Please document specific aspirate (food, liquids, etc.) Please indicate if this is postprocedural Bacterial (specify organism) Bronchopneumonia (specify organism) Interstitual pneumonia Organizing pneumonia/BOOP Pneumonia with influenza, bessie flu, or H1N1 flu RSV pneumonia Tuberculosis, pulmonary Viral pneumonia Other pneumonia (specify organism or type) Clinically unable to determine Unknown Note: Probable and suspected conditions can be coded as if they exist if still documented at the time of discharge. 2. Sputum culture growing Gram Negative Rods Light Growth at this time. Please document the causal relationship to the pneumonia being treated. 3. Please specify the organism causing the pneumonia if known Note: CAP, HAP, and HCAP indicate where the pneumonia was acquired, not a specific type. Based on your medical judgment of the clinical indicators outlined above please clarify the following: [] Practitioner response [] If unable to determine, please check the box, sign and date. Present On Admission (POA) Indicator: [] Present at the time of admission [] Not present at the time of admission [] Clinically Undetermined In responding to this query, please exercise your independent professional judgment. The fact that a question is asked does not imply that any particular answer is desired or expected. Thank you for your clarification on this documentation. If you have any questions please call:[phone] * Thank you, Aimee Gunn RN [facility]
--- NOTE | 2016-11-23 10:13 | PQF GENQUE ---
This form is a permanent part of the medical record 11/23/16 Dr. Day, Please clarify the Type of Atrial Fibrillation if known. Documentation of a history of Atrial Fibrillation. EKG: SInus tachycardia, ST & T wave abnormality consider lateral ischemia. Home medications include Metoprolol ER- Hctz and Digoxin. Clarification of your documentation is requested to better reflect the severity of illness and intensity of treatment of your patient. Indicators present [] Specify: [] [] Specify: [] [] Specify: [] [] Specify: [] Location in the medical record that reflects the above clinical findings: [] Treatment Provided: [] PHYSICIAN'S RESPONSE Please clarify the type of atrial fibrillation: >> Chronic >> Paroxysmal >> Permanent >> Persistent >> Other (please specify type) >> Clinically unable to determine >> Unknown Based on your medical judgment of the clinical indicators outlined above please clarify the following: [] Practitioner response [] If unable to determine, please check the box, sign and date. Present On Admission (POA) Indicator: [] Present at the time of admission [] Not present at the time of admission [] Clinically Undetermined In responding to this query, please exercise your independent professional judgment. The fact that a question is asked does not imply that any particular answer is desired or expected. Thank you for your clarification on this documentation. If you have any questions please call:ext [phone] * Thank you, Aimee Gunn RN [facility]
--- NOTE | 2016-11-23 10:35 | CP.PCM.PN ---
Subjective - Date & Time of Evaluation Date of Evaluation: 11/23/16 Time of Evaluation: 10:33 - Subjective Subjective: No new events reported Still on vent Reviewed lab sodium is still high 149 Serum chloride still high Intake and output reviewed and noted that the has a positive about 1200 mL Objective - Vital Signs/Intake and Output Vital Signs (last 24 hours): Temp Pulse Resp BP Pulse Ox 98.8 F 101 H 28 H 139/69 100 11/23/16 08:00 11/23/16 08:00 11/23/16 08:00 11/23/16 08:00 11/23/16 08:00 Intake and Output: 11/23/16 11/23/16 06:59 18:59 Intake Total 1940 1310 Balance 1940 1310 - Medications Medications: Current Medications Acetaminophen (Tylenol 650 Mg Supp) 650 mg [place] Q4 PRN PRN Reason: Fever >100.4 F Acetaminophen (Tylenol 650mg/20.3ml Solution Ud) 650 mg PO Q4 PRN PRN Reason: Temperature Last Admin: 11/23/16 00:15 Dose: 650 mg Albuterol/Ipratropium (Duoneb 3 Mg/0.5 Mg (3 Ml) Ud) 3 ml INH RQID [facility] Last Admin: 11/23/16 07:59 Dose: 3 ml Vancomycin HCl 1 gm/ Sodium (Chloride) 250 mls @ 166.667 mls/hr IVPB DAILY [facility] Last Admin: 11/23/16 08:25 Dose: 166.667 mls/hr Piperacillin Sod/Tazobactam (Sod 3.375 gm/ Sodium Chloride) 100 mls @ 100 mls/ hr IVPB Q8 [facility] Last Admin: 11/23/16 08:25 Dose: 100 mls/hr Insulin Human Regular (Humulin R) 0 units SC ACCU-CHECK [facility] PRN Reason: Protocol Last Admin: 11/23/16 06:51 Dose: 2 units Magnesium Oxide (Mag-Ox) 400 mg PO BID [facility] Last Admin: 11/23/16 08:23 Dose: 400 mg Metronidazole (Flagyl) 500 mg NG Q8 [facility] Last Admin: 11/23/16 08:23 Dose: 500 mg Pantoprazole Sodium (Protonix Inj) 40 mg IVP DAILY [facility] Last Admin: 11/23/16 08:24 Dose: 40 mg Sucralfate (Carafate Oral Susp) 1 gm PO QID [facility] Last Admin: 11/23/16 08:22 Dose: 1 gm - Labs Labs: 11/23/16 04:20 11/23/16 04:20 PT 12.3 Seconds (9.8-13.1) 11/21/16 13:30 INR 1.2 (0.9-1.2) 11/21/16 13:30 APTT 33.7 Seconds (25.6-37.1) 11/21/16 13:30 - Constitutional Appears: No Acute Distress - ENT Exam ENT Exam: Mucous Membranes Moist - Respiratory Exam Respiratory Exam: absent: Chest Wall Tenderness - Cardiovascular Exam Cardiovascular Exam: absent: JVD, Rubs - Extremities Exam Extremities Exam: absent: Calf Tenderness - Back Exam Back Exam: absent: CVA tenderness (L), CVA tenderness (R) - Neurological Exam Neurological Exam: Altered Assessment and Plan (1) GEORGINA (acute kidney injury) Assessment & Plan: Kidney function improving serum creatinine coming down recovering from acute kidney injury. Dehydration consistent with hypernatremia and hyperchloremia Change IV fluid D5 half-normal saline at 1 25 mL/h for the next 24 hours kidney monitoring cardiac status and kidney function I spoke to the nurse Status: Acute (2) Acute hypercapnic respiratory failure Status: Acute (3) Leukocytosis Status: Acute (4) Pneumonia Status: Acute
[2016-11-23] MEDS ORDERED: Dextrose 5%/0.45% NS 1,000 ML IV SCH (10:45)
--- NOTE | 2016-11-23 14:02 | CP.PCM.PN ---
Subjective - Date & Time of Evaluation Date of Evaluation: 11/23/16 Time of Evaluation: 11:00 - Subjective Subjective: F/U Respiratory Failure. Pt unable to extubated, back on prvc/ac, FIO2 40%, awake, follows some commands. Objective - Vital Signs/Intake and Output Vital Signs (last 24 hours): Temp Pulse Resp BP Pulse Ox 99.1 F 112 H 32 H 152/70 H 94 L 11/23/16 12:00 11/23/16 12:00 11/23/16 12:00 11/23/16 12:00 11/23/16 12:00 Intake and Output: 11/23/16 11/23/16 06:59 18:59 Intake Total 0 1310 Output Total 1 Balance 1940 1309 - Medications Medications: Current Medications Acetaminophen (Tylenol 650 Mg Supp) 650 mg CA Q4 PRN PRN Reason: Fever >100.4 F Acetaminophen (Tylenol 650mg/20.3ml Solution Ud) 650 mg PO Q4 PRN PRN Reason: Temperature Last Admin: 11/23/16 00:15 Dose: 650 mg Albuterol/Ipratropium (Duoneb 3 Mg/0.5 Mg (3 Ml) Ud) 3 ml INH RQID [facility] Last Admin: 11/23/16 11:17 Dose: 3 ml Vancomycin HCl 1 gm/ Sodium (Chloride) 250 mls @ 166.667 mls/hr IVPB DAILY [facility] Last Admin: 11/23/16 08:25 Dose: 166.667 mls/hr Piperacillin Sod/Tazobactam (Sod 3.375 gm/ Sodium Chloride) 100 mls @ 100 mls/ hr IVPB Q8 [facility] Last Admin: 11/23/16 08:25 Dose: 100 mls/hr Dextrose/Sodium Chloride (Dextrose 5%/0.45% Ns 1000 Ml) 1,000 mls @ 42 mls/hr IV .[id number] [facility] Stop: 11/24/16 11:46 Insulin Human Regular (Humulin R) 0 units SC ACCU-CHECK [facility] PRN Reason: Protocol Last Admin: 11/23/16 12:01 Dose: 4 units Magnesium Oxide (Mag-Ox) 400 mg PO BID [facility] Last Admin: 11/23/16 08:23 Dose: 400 mg Metronidazole (Flagyl) 500 mg NG Q8 [facility] Last Admin: 11/23/16 08:23 Dose: 500 mg Pantoprazole Sodium (Protonix Inj) 40 mg IVP DAILY [facility] Last Admin: 11/23/16 08:24 Dose: 40 mg Sucralfate (Carafate Oral Susp) 1 gm PO QID [facility] Last Admin: 11/23/16 12:01 Dose: 1 gm - Labs Labs: 11/23/16 04:20 11/23/16 04:20 PT 12.3 Seconds (9.8-13.1) 11/21/16 13:30 INR 1.2 (0.9-1.2) 11/21/16 13:30 APTT 33.7 Seconds (25.6-37.1) 11/21/16 13:30 - Constitutional Appears: Chronically Ill - Head Exam Head Exam: NORMAL INSPECTION - Eye Exam Eye Exam: PERRL - ENT Exam Additional comments: Intubated. - Neck Exam Neck Exam: Normal Inspection - Respiratory Exam Respiratory Exam: Decreased Breath Sounds (b/l), Rhonchi (b/l) - Cardiovascular Exam Cardiovascular Exam: Tachycardia - GI/Abdominal Exam GI & Abdominal Exam: Soft, Normal Bowel Sounds - Extremities Exam Additional comments: Unstageable ulcers: B/L heels, R lateral and medial ankle, R lateral foot, pressure ulcer R hip, s/p amputation R third toe. - Back Exam Additional comments: Sacral pressure ulcer unstageable. - Neurological Exam Neurological Exam: Awake Additional comments: Intubated, confused, follows simple commands. - Psychiatric Exam Additional comments: Calm now. - Skin Skin Exam: Warm Assessment and Plan (1) Acute hypercapnic respiratory failure Status: Acute (2) Dehydration Status: Acute (3) Pneumonia Status: Acute (4) Septic shock Status: Acute (5) Hyperkalemia Status: Acute (6) GEORGINA (acute kidney injury) Status: Acute (7) Type 2 diabetes mellitus with hyperglycemia Status: Chronic (8) HTN (hypertension) Status: Chronic (9) C. difficile colitis Status: Acute - Assessment and Plan (Free Text) Plan: Continue current Tx, ventilatory support. ICU Time: 35 min.
--- NOTE | 2016-11-23 16:19 | PN ---
DATE: 05/26/2016 LOCATION: The patient is in ICU bed 424. TIME SPENT: Forty five minutes. SUBJECTIVE: The patient is seen and examined at the bedside. Case was discussed in a.m. rounds. Events since admission reviewed. A 79-year-old male from [facility] admitted with admitted with hypercapnic hypoxic respiratory failure, healthcare-associated pneumonia, multiple sacral as well as unstageable wounds of both lower extremities, dementia, former alcohol user, history of nicotine dependence, remains intubated on medical ventilation. AC/PRVC rate 12, tidal volume of 500, FiO2 of 40%, observed rate 24, exhaled tidal volume of 450, minute evaluation 12.5 liters, saturating 100%, and end-tidal CO2 of 22. No sedation. Remains alert and wakeful. Opens eyes. Can follow simple commands. PHYSICAL EXAMINATION: VITAL SIGNS: Temperature 98.8, heart rate 103, blood pressure 140/62, mean arterial pressure 88, oxygen saturation 100%, and FiO2 40%. INTAKE/OUTPUT: Significant positive balance over the last some 4 days mounding around 10,000 mL, tube feeding 1100 mL, water flush 900 mL, urine output 750 mL, and weight 180 pounds. HEAD, EYES, EARS, NOSE AND THROAT: Pupils are reactive. Conjunctivae are pink. NECK: Neck supple. Endotracheal tube in place. Moderate thick secretions. LUNGS: Bilateral breath sounds. Prolonged expiration. HEART: Rhythm regular. S1 and S2 rapid. ABDOMEN: Bowel sounds present, soft. EXTREMITIES: Trace dependent edema. Peripheral pulses reduced in intensity. SKIN: Sacral decubitus, unstageable, unstageable skin breakdown in both lower extremities. Right third toe amputation. NEUROLOGIC: Alert and awake, slow to respond. Can follow simple commands. CURRENT MEDICATIONS: Vancomycin 1 g IV daily, Zosyn 3.375 g IV q.8 hours, Flagyl 500 mg NG q.8 hours, DuoNeb 3 mL q.6 hours, magnesium oxide 400 mg twice daily, Protonix 40 IV daily, and sucralfate 1 g q.6 hours. LABORATORY DATA: WBC 10.8, hemoglobin 7.2, hematocrit 22, MCV 92.4, and platelet count 90. PT 12, INR 1.2, and PTT 33.7. ABG, pH of 7.44, PCO2 25, PO2 141, [place] 99[place] [address], 40%, PEEP of 5. SMA-7, sodium 140, potassium 4.2, chloride 103, CO2 28, blood urea nitrogen 42, creatinine 1.5, and glucose random 158. Iron 42, iron binding capacity of 132, percentage saturation 32. Urine sodium 49, urine chloride 33. Stool occult blood positive. C diff toxic B gene detected. IMPRESSION AND PLAN: 1. Neurologic; resolving septic toxic metabolic encephalopathy, more wakeful than baseline on admission. 2. Pulmonary; respiratory failure, attempt spontaneous breathing trial, noted to be tachypneic, tachycardic, and with desaturation, back on assist control with FiO2 of 40%. Significant pulmonary vascular congestion secondary to positive fluid balance. 3. Cardiac. Tachycardiac, but remains normotensive. Echocardiogram pending. 4. Gastrointestinal. Guaiac positive stool, gastritis, likely. 5. Renal; acute on chronic renal insufficiency, improving BUN and creatinine. Has significant positive fluid balance seen by Renal. Recommended D5 half normal at 125 mL. Given the positive fluid balance, we will reduce the dose to 40 mL. May need transfusion of 1 unit of packed red blood cells. Recheck urine electrolytes. Adjust the fluid as needed. Continue free water through NG tube. 6. Hematology; anemia of chronic disease, guaiac positive stool. We will transfuse a unit of packed red blood cells and then followed by Lasix 40 mg to reduce fluid overload. 7. Endocrine. Maintain blood sugar less than 180 mg. 8. Keep of head of bed at 30 degrees up. 9. Gastrointestinal prophylaxis with Protonix and sucralfate. Hold anticoagulation secondary to thrombocytopenia and guaiac stool, also with risk for bleeding. Continue deep venous thrombosis prophylaxis with the mechanical device/SCDs. Heri Izquierdo MD [facility]
[2016-11-23] MEDS: Dextrose 5%/0.45% NS 1,000 ML IV SCH (17:05)
[2016-11-24] MEDS: Piperacillin/Tazobact 3.375 GM in Sodium Chloride 0.9% 100 ML IVPB SCH ×3 (00:08→16:18)
[2016-11-24] MEDS ORDERED: Chlorhexidine Gluconate 1 APPL/PKT TP ONE (04:54)
[2016-11-24 05:22] LABS: ABG ALLEN TEST YES; ABG MECHANICAL RATE 12; ARTERIAL BLOOD GAS HCO3 20.7 mmol/L (21-28); ARTERIAL BLOOD GAS MODE A/C; ARTERIAL BLOOD GAS O2 CONTENT 12.1 ML/dL (15-23); ARTERIAL BLOOD GAS PH 7.43 (7.35-7.45); ARTERIAL BLOOD GAS PO2 150 mm/Hg (80-100); ARTERIAL BLOOD HGB O2 SAT 97.4 % (95.0-98.0); ATERIAL BLOOD GAS PEEP 5; CARBOXYHEMOGLOBIN 1.4 % (0.5-1.5); HHB -0.6 % (0.0-5.0); METHEMOGLOBIN 1.7 % (0.0-3.0)
[2016-11-24 06:19] LABS: HEMATOCRIT 24.6 % (35.0-51.0); MEAN CELL VOLUME 91.6 fl (80.0-94.0); MEAN CORPUSCULAR HGB CONC 32.8 g/dL (33.0-37.0); RED CELL DISTRIBUTION WIDTH 16.6 % (11.5-14.5); WHITE BLOOD COUNT 15.7 K/uL (4.8-10.8)
[2016-11-24 06:43] LABS: CALCIUM 7.4 mg/dL (8.4-10.2); POTASSIUM 3.6 MMOL/L (3.6-5.0)
[2016-11-24] MEDS: Albuterol-Ipratrop 3 mg / 0.5 (3 ml) UD INH SCH ×4 (07:54→19:26)
[2016-11-24] MEDS: Sucralfate 1 gm/10 ml Oral Susp UD PO SCH ×4 (08:17→21:33)
[2016-11-24] MEDS: Magnesium Oxide 400 mg Tab UD PO SCH ×2 (08:19→16:20)
--- NOTE | 2016-11-24 09:24 | RAD ---
HISTORY: Intubated COMPARISON: 11/23/2016 FINDINGS: LUNGS: Possible confluent opacity medial left lung base, unchanged. No other focal opacity elsewhere. PLEURA: No significant pleural effusion identified, no pneumothorax apparent. CARDIOVASCULAR: Normal heart size. Congestive change, grossly unchanged in extent. ET tube, NG tube and right IJ central venous catheter are all unchanged.Normal. OSSEOUS STRUCTURES: No significant abnormalities. VISUALIZED UPPER ABDOMEN: Normal. OTHER FINDINGS: None. IMPRESSION: Focal opacity medial left lung base. Possible pneumonia. Congestive change noted. Lines and tubes are unchanged.
--- NOTE | 2016-11-24 10:40 | CP.PCM.PN ---
Subjective - Date & Time of Evaluation Date of Evaluation: 11/24/16 Time of Evaluation: 10:40 - Subjective Subjective: ID Note- Pt. seen and examined today in ICU. pt. on CPAP trial as per nurse. pt. awake and nods to questions. denies any pain. Objective - Vital Signs/Intake and Output Vital Signs (last 24 hours): Temp Pulse Resp BP Pulse Ox 98.6 F 83 23 132/59 L 100 11/24/16 07:43 11/24/16 10:00 11/24/16 10:00 11/24/16 10:00 11/24/16 10:00 Intake and Output: 11/24/16 11/24/16 06:59 18:59 Intake Total 1612 707 Balance 1612 707 - Medications Medications: Current Medications Acetaminophen (Tylenol 650 Mg Supp) 650 mg DC Q4 PRN PRN Reason: Fever >100.4 F Acetaminophen (Tylenol 650mg/20.3ml Solution Ud) 650 mg PO Q4 PRN PRN Reason: Temperature Last Admin: 11/23/16 23:50 Dose: 650 mg Albuterol/Ipratropium (Duoneb 3 Mg/0.5 Mg (3 Ml) Ud) 3 ml INH RQID [facility] Last Admin: 11/24/16 07:54 Dose: 3 ml Vancomycin HCl 1 gm/ Sodium (Chloride) 250 mls @ 166.667 mls/hr IVPB DAILY [facility] Last Admin: 11/24/16 09:09 Dose: 166.667 mls/hr Piperacillin Sod/Tazobactam (Sod 3.375 gm/ Sodium Chloride) 100 mls @ 100 mls/ hr IVPB Q8 [facility] Last Admin: 11/24/16 08:18 Dose: 100 mls/hr Dextrose/Sodium Chloride (Dextrose 5%/0.45% Ns 1000 Ml) 1,000 mls @ 42 mls/hr IV .[id number] [facility] Stop: 11/24/16 11:46 Last Admin: 11/23/16 17:05 Dose: 42 mls/hr Insulin Human Regular (Humulin R) 0 units SC ACCU-CHECK [facility] PRN Reason: Protocol Last Admin: 11/23/16 23:10 Dose: Not Given Magnesium Oxide (Mag-Ox) 400 mg PO BID [facility] Last Admin: 08/23/17 08:19 Dose: 400 mg Metronidazole (Flagyl) 500 mg NG Q8 [facility] Last Admin: 11/24/16 08:19 Dose: 500 mg Pantoprazole Sodium (Protonix Inj) 40 mg IVP DAILY [facility] Last Admin: 11/24/16 08:19 Dose: 40 mg Sucralfate (Carafate Oral Susp) 1 gm PO QID [facility] Last Admin: 11/24/16 08:17 Dose: 1 gm - Labs Labs: - Additional Findings Additional findings: - Constitutional Appears: Chronically Ill Additional comments: intubated but awake and responds - Head Exam Head Exam: ATRAUMATIC - ENT Exam Additional comments: ET tube and OG tube in place - Neck Exam Neck exam: Positive for: Full Rom - Respiratory Exam Additional comments: some scattered coarse breath sounds b/l - Cardiovascular Exam Cardiovascular Exam: RRR, +S1, +S2 - GI/Abdominal Exam GI & Abdominal Exam: Normal Bowel Sounds, Soft Additional comments: ND, NT - Extremities Exam Additional comments: unstageable b/l heel ulcers right third toe s/p amputation no discharge - Neurological Exam Additional comments: awake and follows commands Laboratory Results - last 72 hr 11/20/16 11/20/16 11/21/16 12:00 14:00 08:22 WBC RBC Hgb Hct MCV MCH MCHC RDW Plt Count MPV Neut % (Auto) Lymph % (Auto) Kershaw % (Auto) Eos % (Auto) Baso % (Auto) Neut # Lymph # [place] # Eos # Baso # ESR Haptoglobin PT INR APTT pCO2 pO2 HCO3 ABG pH ABG Total CO2 ABG O2 Saturation ABG O2 Content ABG Base Excess ABG Hemoglobin ABG Carboxyhemoglobin POC ABG HHb (Measured) ABG Methemoglobin ABG O2 Capacity Torres Test A-a O2 Difference Hgb O2 Saturation Vent Mode Mechanical Rate FiO2 Tidal Volume PEEP Sodium Potassium Chloride Carbon Dioxide Anion Gap BUN Creatinine Est GFR ( Amer) Est GFR (Non-Af Amer) POC Glucose (mg/dL) Random Glucose Calcium Magnesium Iron TIBC % Saturation Ferritin Lactate Dehydrogenase Troponin I Procalcitonin 10.65 H Ur Random Creatinine Ur Random Sodium Ur Random Potassium Urine Chloride Stool Occult Blood Positive H C. difficile Tox B Gene Detected H Blood Type Antibody Screen Crossmatch BBK History Checked 11/21/16 11/21/16 11/21/16 13:30 13:30 13:30 WBC 10.9 H RBC 2.55 L Hgb 7.7 L Hct 23.6 L MCV 92.4 MCH 30.1 MCHC 32.6 L RDW 16.4 H Plt Count 110 L MPV 9.6 Neut % (Auto) 86.1 H Lymph % (Auto) 8.2 L Kershaw % (Auto) 5.0 Eos % (Auto) 0.0 Baso % (Auto) 0.7 Neut # 9.4 H Lymph # 0.9 L K[place]haw # 0.5 Eos # 0.0 Baso # 0.1 ESR Haptoglobin PT 12.3 INR 1.2 APTT 33.7 pCO2 pO2 HCO3 ABG pH ABG Total CO2 ABG O2 Saturation ABG O2 Content ABG Base Excess ABG Hemoglobin ABG Carboxyhemoglobin POC ABG HHb (Measured) ABG Methemoglobin ABG O2 Capacity Torres Test A-a O2 Difference Hgb O2 Saturation Vent Mode Mechanical Rate FiO2 Tidal Volume PEEP Sodium Potassium Chloride Carbon Dioxide Anion Gap BUN Creatinine Est GFR ( Amer) Est GFR (Non-Af Amer) POC Glucose (mg/dL) Random Glucose Calcium Magnesium Iron TIBC % Saturation Ferritin Lactate Dehydrogenase Troponin I Procalcitonin Ur Random Creatinine Ur Random Sodium Ur Random Potassium Urine Chloride Stool Occult Blood C. difficile Tox B Gene Blood Type A POSITIVE Antibody Screen Negative Crossmatch See Detail BBK History Checked Patient has bt 11/21/16 11/21/16 11/21/16 14:00 15:58 17:00 WBC RBC Hgb Hct MCV MCH MCHC RDW Plt Count MPV Neut % (Auto) Lymph % (Auto) K[place]haw % (Auto) Eos % (Auto) Baso % (Auto) Neut # Lymph # [place] # Eos # Baso # ESR Haptoglobin PT INR APTT pCO2 pO2 HCO3 ABG pH ABG Total CO2 ABG O2 Saturation ABG O2 Content ABG Base Excess ABG Hemoglobin ABG Carboxyhemoglobin POC ABG HHb (Measured) ABG Methemoglobin ABG O2 Capacity Torres Test A-a O2 Difference Hgb O2 Saturation Vent Mode Mechanical Rate FiO2 Tidal Volume PEEP Sodium Potassium Chloride Carbon Dioxide Anion Gap BUN Creatinine Est GFR ( Amer) Est GFR (Non-Af Amer) POC Glucose (mg/dL) 207 H Random Glucose Calcium Magnesium Iron TIBC % Saturation Ferritin Lactate Dehydrogenase Troponin I Procalcitonin Ur Random Creatinine 55.6 Ur Random Sodium 49 Ur Random Potassium Urine Chloride 33 Stool Occult Blood C. difficile Tox B Gene Blood Type Antibody Screen Crossmatch BBK History Checked 11/21/16 11/21/16 11/22/16 18:00 23:01 01:00 WBC RBC Hgb Hct MCV MCH MCHC RDW Plt Count MPV Neut % (Auto) Lymph % (Auto) [place] % (Auto) Eos % (Auto) Baso % (Auto) Neut # Lymph # [place] # Eos # Baso # ESR Haptoglobin PT INR APTT pCO2 pO2 HCO3 ABG pH ABG Total CO2 ABG O2 Saturation ABG O2 Content ABG Base Excess ABG Hemoglobin ABG Carboxyhemoglobin POC ABG HHb (Measured) ABG Methemoglobin ABG O2 Capacity Torres Test A-a O2 Difference Hgb O2 Saturation Vent Mode Mechanical Rate FiO2 Tidal Volume PEEP Sodium Potassium Chloride Carbon Dioxide Anion Gap BUN Creatinine Est GFR ( Amer) Est GFR (Non-Af Amer) POC Glucose (mg/dL) 310 H Random Glucose Calcium Magnesium Iron TIBC % Saturation Ferritin Lactate Dehydrogenase Troponin I 0.0360 0.0290 Procalcitonin Ur Random Creatinine Ur Random Sodium Ur Random Potassium Urine Chloride Stool Occult Blood C. difficile Tox B Gene Blood Type Antibody Screen Crossmatch BBK History Checked 11/22/16 11/22/16 11/22/16 04:20 04:20 04:20 WBC 11.1 H RBC 2.49 L Hgb 7.5 L Hct 22.9 L MCV 92.0 MCH 30.1 MCHC 32.7 L RDW 16.7 H Plt Count 106 L MPV Neut % (Auto) Lymph % (Auto) [place] % (Auto) Eos % (Auto) Baso % (Auto) Neut # Lymph # [place] # Eos # Baso # ESR 106 H Haptoglobin 278 H PT INR APTT pCO2 pO2 HCO3 ABG pH ABG Total CO2 ABG O2 Saturation ABG O2 Content ABG Base Excess ABG Hemoglobin ABG Carboxyhemoglobin POC ABG HHb (Measured) ABG Methemoglobin ABG O2 Capacity Torres Test A-a O2 Difference Hgb O2 Saturation Vent Mode Mechanical Rate FiO2 Tidal Volume PEEP Sodium 147 Potassium 2.9 L Chloride 120 H Carbon Dioxide 18 L Anion Gap 12 BUN 49 H Creatinine 1.8 H Est GFR ( Amer) 45 Est GFR (Non-Af Amer) 37 POC Glucose (mg/dL) Random Glucose 267 H Calcium 7.7 L Magnesium 1.7 Iron TIBC % Saturation Ferritin 1820.0 Lactate Dehydrogenase 399 Troponin I Procalcitonin Ur Random Creatinine Ur Random Sodium Ur Random Potassium Urine Chloride Stool Occult Blood C. difficile Tox B Gene Blood Type Antibody Screen Crossmatch BBK History Checked 11/22/16 11/22/16 11/22/16 04:48 05:21 08:00 WBC RBC Hgb Hct MCV MCH MCHC RDW Plt Count MPV Neut % (Auto) Lymph % (Auto) [place] % (Auto) Eos % (Auto) Baso % (Auto) Neut # Lymph # [place] # Eos # Baso # ESR Haptoglobin PT INR APTT pCO2 26 L pO2 223 H HCO3 21.0 ABG pH 7.45 ABG Total CO2 18.9 L ABG O2 Saturation 99.7 H ABG O2 Content 11.6 L ABG Base Excess -5.1 L ABG Hemoglobin 8.1 L ABG Carboxyhemoglobin 0.4 L POC ABG HHb (Measured) 0.3 ABG Methemoglobin 2.1 ABG O2 Capacity 11.6 L Torres Test Yes A-a O2 Difference 101.0 Hgb O2 Saturation 97.2 Vent Mode A/c Mechanical Rate 16 FiO2 50.0 Tidal Volume 500 PEEP 3 Sodium Potassium Chloride Carbon Dioxide Anion Gap BUN Creatinine Est GFR ( Amer) Est GFR (Non-Af Amer) POC Glucose (mg/dL) 286 H Random Glucose Calcium Magnesium Iron 42 L TIBC 132 L % Saturation 32 Ferritin Lactate Dehydrogenase Troponin I Procalcitonin Ur Random Creatinine Ur Random Sodium Ur Random Potassium Urine Chloride Stool Occult Blood C. difficile Tox B Gene Blood Type Antibody Screen Crossmatch BBK History Checked 11/22/16 11/22/16 11/22/16 11:20 16:10 21:12 WBC RBC Hgb Hct MCV MCH MCHC RDW Plt Count MPV Neut % (Auto) Lymph % (Auto) [place]haw % (Auto) Eos % (Auto) Baso % (Auto) Neut # Lymph # [place] # Eos # Baso # ESR Haptoglobin PT INR APTT pCO2 pO2 HCO3 ABG pH ABG Total CO2 ABG O2 Saturation ABG O2 Content ABG Base Excess ABG Hemoglobin ABG Carboxyhemoglobin POC ABG HHb (Measured) ABG Methemoglobin ABG O2 Capacity Torres Test A-a O2 Difference Hgb O2 Saturation Vent Mode Mechanical Rate FiO2 Tidal Volume PEEP Sodium Potassium Chloride Carbon Dioxide Anion Gap BUN Creatinine Est GFR ( Amer) Est GFR (Non-Af Amer) POC Glucose (mg/dL) 193 H 188 H 166 H Random Glucose Calcium Magnesium Iron TIBC % Saturation Ferritin Lactate Dehydrogenase Troponin I Procalcitonin Ur Random Creatinine Ur Random Sodium Ur Random Potassium Urine Chloride Stool Occult Blood C. difficile Tox B Gene Blood Type Antibody Screen Crossmatch BBK History Checked 11/23/16 11/23/16 11/23/16 04:20 04:20 05:12 WBC 10.8 RBC 2.38 L Hgb 7.2 L Hct 22.0 L MCV 92.4 MCH 30.4 MCHC 32.9 L RDW 16.7 H Plt Count 90 L MPV Neut % (Auto) Lymph % (Auto) [place] % (Auto) Eos % (Auto) Baso % (Auto) Neut # Lymph # [place] # Eos # Baso # ESR Haptoglobin PT INR APTT pCO2 25 L pO2 141 H HCO3 20.0 L ABG pH 7.44 ABG Total CO2 17.8 L ABG O2 Saturation 99.4 H ABG O2 Content 10.9 L ABG Base Excess -6.3 L ABG Hemoglobin 7.8 L ABG Carboxyhemoglobin 0.6 POC ABG HHb (Measured) 0.6 ABG Methemoglobin 1.9 ABG O2 Capacity 11.0 L Torres Test Yes A-a O2 Difference 113.0 Hgb O2 Saturation 96.9 Vent Mode A/c Mechanical Rate 12 FiO2 40.0 Tidal Volume 500 PEEP 5 Sodium 149 H Potassium 4.2 Chloride 123 H Carbon Dioxide 18 L Anion Gap 12 BUN 42 H Creatinine 1.5 Est GFR ( Amer) 56 Est GFR (Non-Af Amer) 46 POC Glucose (mg/dL) Random Glucose 158 H Calcium 7.5 L Magnesium Iron TIBC % Saturation Ferritin Lactate Dehydrogenase Troponin I Procalcitonin Ur Random Creatinine Ur Random Sodium Ur Random Potassium Urine Chloride Stool Occult Blood C. difficile Tox B Gene Blood Type Antibody Screen Crossmatch BBK History Checked 11/23/16 11/23/16 11/23/16 11:17 13:00 15:49 WBC RBC Hgb Hct MCV MCH MCHC RDW Plt Count MPV Neut % (Auto) Lymph % (Auto) [place] % (Auto) Eos % (Auto) Baso % (Auto) Neut # Lymph # [place] # Eos # Baso # ESR Haptoglobin PT INR APTT pCO2 pO2 HCO3 ABG pH ABG Total CO2 ABG O2 Saturation ABG O2 Content ABG Base Excess ABG Hemoglobin ABG Carboxyhemoglobin POC ABG HHb (Measured) ABG Methemoglobin ABG O2 Capacity Torres Test A-a O2 Difference Hgb O2 Saturation Vent Mode Mechanical Rate FiO2 Tidal Volume PEEP Sodium Potassium Chloride Carbon Dioxide Anion Gap BUN Creatinine Est GFR ( Amer) Est GFR (Non-Af Amer) POC Glucose (mg/dL) 204 H 198 H Random Glucose Calcium Magnesium Iron TIBC % Saturation Ferritin Lactate Dehydrogenase Troponin I Procalcitonin Ur Random Creatinine Ur Random Sodium 114 Ur Random Potassium 34.5 Urine Chloride Stool Occult Blood C. difficile Tox B Gene Blood Type Antibody Screen Crossmatch BBK History Checked 11/23/16 11/24/16 11/24/16 22:16 05:19 05:30 WBC 15.7 H RBC 2.68 L Hgb 8.1 L Hct 24.6 L MCV 91.6 MCH 30.0 MCHC 32.8 L RDW 16.6 H Plt Count 87 L MPV Neut % (Auto) Lymph % (Auto) [place] % (Auto) Eos % (Auto) Baso % (Auto) Neut # Lymph # [place] # Eos # Baso # ESR Haptoglobin PT INR APTT pCO2 27 L pO2 150 H HCO3 20.7 L ABG pH 7.43 ABG Total CO2 18.7 L ABG O2 Saturation 100.6 H ABG O2 Content 12.1 L ABG Base Excess -5.5 L ABG Hemoglobin 8.6 L ABG Carboxyhemoglobin 1.4 POC ABG HHb (Measured) -0.6 L ABG Methemoglobin 1.7 ABG O2 Capacity 12.0 L Torres Test Yes A-a O2 Difference 101.0 Hgb O2 Saturation 97.4 Vent Mode A/c Mechanical Rate 12 FiO2 40.0 Tidal Volume 500 PEEP 5 Sodium Potassium Chloride Carbon Dioxide Anion Gap BUN Creatinine Est GFR ( Amer) Est GFR (Non-Af Amer) POC Glucose (mg/dL) 164 H Random Glucose Calcium Magnesium Iron TIBC % Saturation Ferritin Lactate Dehydrogenase Troponin I Procalcitonin Ur Random Creatinine Ur Random Sodium Ur Random Potassium Urine Chloride Stool Occult Blood C. difficile Tox B Gene Blood Type Antibody Screen Crossmatch BBK History Checked 11/24/16 11/24/16 11/24/16 05:30 05:37 11:10 WBC RBC Hgb Hct MCV MCH MCHC RDW Plt Count MPV Neut % (Auto) Lymph % (Auto) [place] % (Auto) Eos % (Auto) Baso % (Auto) Neut # Lymph # [place] # Eos # Baso # ESR Haptoglobin PT INR APTT pCO2 pO2 HCO3 ABG pH ABG Total CO2 ABG O2 Saturation ABG O2 Content ABG Base Excess ABG Hemoglobin ABG Carboxyhemoglobin POC ABG HHb (Measured) ABG Methemoglobin ABG O2 Capacity Torres Test A-a O2 Difference Hgb O2 Saturation Vent Mode Mechanical Rate FiO2 Tidal Volume PEEP Sodium 147 Potassium 3.6 Chloride 119 H Carbon Dioxide 17 L Anion Gap 15 BUN 42 H Creatinine 1.5 Est GFR ( Amer) 56 Est GFR (Non-Af Amer) 46 POC Glucose (mg/dL) 215 H 249 H Random Glucose 187 H Calcium 7.4 L Magnesium Iron TIBC % Saturation Ferritin Lactate Dehydrogenase Troponin I Procalcitonin Ur Random Creatinine Ur Random Sodium Ur Random Potassium Urine Chloride Stool Occult Blood C. difficile Tox B Gene Blood Type Antibody Screen Crossmatch BBK History Checked Microbiology 11/20/16 10:00 Blood-Venous Blood Culture - Preliminary NO GROWTH AFTER 4 DAYS 11/21/16 10:00 Trachasp Gram Stain - Preliminary 11/21/16 10:00 Trachasp Sputum Culture - Final Klebsiella Pneumoniae Ssp Pneu 11/20/16 15:00 Nose MRSA Culture (Admit) - Final MRSA NOT DETECTED 11/20/16 01:57 Urine,Triplett Urine Culture - Final No Growth (<1,000 CFU/ML) Accession No. : [id number] Patient Name / ID : GRACE ANTON / [id number] Exam Date : 11/24/2016 04:42:50 ( Approved ) Study Comment : Sex / Age : M / 71Y Creator : BRITNEY GALLEGOS MD Dictator : BRITNEY GALLEGOS MD Physical Therapy Nurse : Separating Machine Operator : BRITNEY GALLEGOS MD Approver2 : Report Date : 11/24/2016 09:18:32 My Comment : HISTORY: Intubated COMPARISON: 11/23/2016 FINDINGS: LUNGS: Possible confluent opacity medial left lung base, unchanged. No other focal opacity elsewhere. PLEURA: No significant pleural effusion identified, no pneumothorax apparent. CARDIOVASCULAR: Normal heart size. Congestive change, grossly unchanged in extent. ET tube, NG tube and right IJ central venous catheter are all unchanged.Normal. OSSEOUS STRUCTURES: No significant abnormalities. VISUALIZED UPPER ABDOMEN: Normal. OTHER FINDINGS: None. IMPRESSION: Focal opacity medial left lung base. Possible pneumonia. Congestive change noted. Lines and tubes are unchanged. Assessment and Plan (1) Respiratory failure Status: Acute (2) Septic shock Status: Resolved (3) GEORGINA (acute kidney injury) Status: Acute (4) Leukocytosis Status: Acute - Assessment and Plan (Free Text) Assessment: A/P- 71 year old male from [place] with multiple medical conditions including DM II, HTN, previous e.fecalis bacteremia in 10/2016, h/o right third toe amputation for OM admitted with sob and hypoxemia and is intubated and on pressors. clinically somewhat better. cpap trial today as per ICU afebrile leukocytosis was resolved and today agin has mild increase blood cx- neg x 1 urine cx- neg sputum cx from trach- Klebsiella brower sensitive CXR- ? left lung pneumonia as per report + stool c.diff. 1.hypoxemia 2.respiratory failure/intubated 3.leukocytosis 4.IZABELLA 5.pneumonia Plan- advise to continue with empiric broad spectrum abx coverage with vanco and zosyn day #5. the zosyn will treat the klebsilla pneumonia pneumonia . keep vanco trough <15. monitor aspiration precautions. continue with flagyl via OG tube for + c.diff. check 2 more repeat stool c.diff. ICU time 45 minutes.
[2016-11-24] MEDS: Insulin Regular 100 units/ml SC SCH ×3 (11:42→22:37)
--- NOTE | 2016-11-24 14:49 | CP.PCM.PN ---
Subjective - Date & Time of Evaluation Date of Evaluation: 11/24/16 Time of Evaluation: 14:47 - Subjective Subjective: No significant changes reported overnight Serum sodium improving can coming down to 147 serum chloride came down Continue gentle hydration was D5 and half-normal saline Kidney function stable with serum creatinine remained around 1.5 Physical exam Chest no rales Heart no rubs Abdomen soft Extremity no edema Impression and plan As above Continue monitoring Objective - Vital Signs/Intake and Output Vital Signs (last 24 hours): Temp Pulse Resp BP Pulse Ox 98.7 F 82 25 H 122/62 100 11/24/16 12:00 11/24/16 14:00 11/24/16 14:00 11/24/16 14:00 11/24/16 14:00 Intake and Output: 11/24/16 11/24/16 06:59 18:59 Intake Total 1612 1135 Balance 1612 1135 - Medications Medications: Current Medications Acetaminophen (Tylenol 650 Mg Supp) 650 mg [place] Q4 PRN PRN Reason: Fever >100.4 F Acetaminophen (Tylenol 650mg/20.3ml Solution Ud) 650 mg PO Q4 PRN PRN Reason: Temperature Last Admin: 11/23/16 23:50 Dose: 650 mg Albuterol/Ipratropium (Duoneb 3 Mg/0.5 Mg (3 Ml) Ud) 3 ml INH RQID [facility] Last Admin: 11/24/16 10:59 Dose: 3 ml Vancomycin HCl 1 gm/ Sodium (Chloride) 250 mls @ 166.667 mls/hr IVPB DAILY [facility] Last Admin: 11/24/16 09:09 Dose: 166.667 mls/hr Piperacillin Sod/Tazobactam (Sod 3.375 gm/ Sodium Chloride) 100 mls @ 100 mls/ hr IVPB Q8 [facility] Last Admin: 11/24/16 08:18 Dose: 100 mls/hr Insulin Human Regular (Humulin R) 0 units SC ACCU-CHECK [facility] PRN Reason: Protocol Last Admin: 11/24/16 11:42 Dose: 4 units Magnesium Oxide (Mag-Ox) 400 mg PO BID [facility] Last Admin: 11/24/16 08:19 Dose: 400 mg Metronidazole (Flagyl) 500 mg NG Q8 [facility] Last Admin: 11/24/16 08:19 Dose: 500 mg Pantoprazole Sodium (Protonix Inj) 40 mg IVP DAILY [facility] Last Admin: 11/24/16 08:19 Dose: 40 mg Sucralfate (Carafate Oral Susp) 1 gm PO QID [facility] Last Admin: 11/24/16 12:03 Dose: 1 gm - Labs Labs: 11/24/16 05:30 11/24/16 05:30 PT 12.3 Seconds (9.8-13.1) 11/21/16 13:30 INR 1.2 (0.9-1.2) 11/21/16 13:30 APTT 33.7 Seconds (25.6-37.1) 11/21/16 13:30 Assessment and Plan (1) GEORGINA (acute kidney injury) Status: Acute (2) Acute hypercapnic respiratory failure Status: Acute (3) Leukocytosis Status: Acute (4) Pneumonia Status: Acute
[2016-11-24 15:19] LABS: ABG ALLEN TEST YES; ARTERIAL BLOOD GAS O2 CAPACITY 11.5 mL/dL (16-24); ARTERIAL BLOOD GAS O2 CONTENT 11.4 ML/dL (15-23); ARTERIAL BLOOD GAS PH 7.43 (7.35-7.45); ARTERIAL BLOOD GAS PO2 113 mm/Hg (80-100); ARTERIAL BLOOD HGB O2 SAT 96.9 % (95.0-98.0); CARBOXYHEMOGLOBIN 0.7 % (0.5-1.5); HHB 0.7 % (0.0-5.0); METHEMOGLOBIN 1.7 % (0.0-3.0)
--- NOTE | 2016-11-24 16:04 | CP.PCM.PN ---
Subjective - Date & Time of Evaluation Date of Evaluation: 11/24/16 Time of Evaluation: 17:52 - Subjective Subjective: Extubation procedure note:71 YR old male with respiratory failure, klebsiella pneumonia, sepsis, unstageable skin decubiti intubated day # 5 Placed o CPAP /ps 10 Fio2 40%. tolerated well >Vital signs: T 98.7,HR 82,BP 122/ 62.RR25.ABG : 7.43/28/113/Spo2 99%. on FIO@ 40%Examination: clear lungs.Heart : [id number] normal. Wakeful, but sleepy. Responds well, but slow.Extubated , placed on VM 50% post extubation : RR 28, Spo2 98%. No stridor. closely monitor, Respiratory status. Suction clear throat secrtions. Objective - Vital Signs/Intake and Output Vital Signs (last 24 hours): Temp Pulse Resp BP Pulse Ox 98.7 F 82 25 H 122/62 100 11/24/16 12:00 11/24/16 14:00 11/24/16 14:00 11/24/16 14:00 11/24/16 14:00 Intake and Output: 11/24/16 11/24/16 06:59 18:59 Intake Total 1612 1135 Balance 1612 1135 - Medications Medications: Current Medications Acetaminophen (Tylenol 650 Mg Supp) 650 mg [place] Q4 PRN PRN Reason: Fever >100.4 F Acetaminophen (Tylenol 650mg/20.3ml Solution Ud) 650 mg PO Q4 PRN PRN Reason: Temperature Last Admin: 11/23/16 23:50 Dose: 650 mg Albuterol/Ipratropium (Duoneb 3 Mg/0.5 Mg (3 Ml) Ud) 3 ml INH RQID [facility] Last Admin: 11/24/16 15:10 Dose: 3 ml Vancomycin HCl 1 gm/ Sodium (Chloride) 250 mls @ 166.667 mls/hr IVPB DAILY [facility] Last Admin: 11/24/16 09:09 Dose: 166.667 mls/hr Piperacillin Sod/Tazobactam (Sod 3.375 gm/ Sodium Chloride) 100 mls @ 100 mls/ hr IVPB Q8 [facility] Last Admin: 11/24/16 08:18 Dose: 100 mls/hr Insulin Human Regular (Humulin R) 0 units SC ACCU-CHECK [facility] PRN Reason: Protocol Last Admin: 11/24/16 11:42 Dose: 4 units Magnesium Oxide (Mag-Ox) 400 mg PO BID [facility] Last Admin: 11/24/16 08:19 Dose: 400 mg Metronidazole (Flagyl) 500 mg NG Q8 [facility] Last Admin: 11/24/16 08:19 Dose: 500 mg Pantoprazole Sodium (Protonix Inj) 40 mg IVP DAILY [facility] Last Admin: 11/24/16 08:19 Dose: 40 mg Sucralfate (Carafate Oral Susp) 1 gm PO QID [facility] Last Admin: 11/24/16 12:03 Dose: 1 gm - Labs Labs: 11/24/16 05:30 11/24/16 05:30 PT 12.3 Seconds (9.8-13.1) 11/21/16 13:30 INR 1.2 (0.9-1.2) 11/21/16 13:30 APTT 33.7 Seconds (25.6-37.1) 11/21/16 13:30
--- NOTE | 2016-11-24 16:49 | CP.PCM.PN ---
Subjective - Date & Time of Evaluation Date of Evaluation: 11/24/16 Time of Evaluation: 10:00 - Subjective Subjective: F/U Respiratory Failure. Pt awake, follows commands, on CPAP/PS, FIO2 40%. Objective - Vital Signs/Intake and Output Vital Signs (last 24 hours): Temp Pulse Resp BP Pulse Ox 98.3 F 88 16 135/66 100 11/24/16 16:09 11/24/16 16:09 11/24/16 16:09 11/24/16 16:09 11/24/16 16:09 Intake and Output: 11/24/16 11/24/16 06:59 18:59 Intake Total 1612 1135 Balance 1612 1135 - Medications Medications: Current Medications Acetaminophen (Tylenol 650 Mg Supp) 650 mg [place] Q4 PRN PRN Reason: Fever >100.4 F Acetaminophen (Tylenol 650mg/20.3ml Solution Ud) 650 mg PO Q4 PRN PRN Reason: Temperature Last Admin: 11/23/16 23:50 Dose: 650 mg Albuterol/Ipratropium (Duoneb 3 Mg/0.5 Mg (3 Ml) Ud) 3 ml INH RQID [facility] Last Admin: 11/24/16 15:10 Dose: 3 ml Vancomycin HCl 1 gm/ Sodium (Chloride) 250 mls @ 166.667 mls/hr IVPB DAILY [facility] Last Admin: 11/24/16 09:09 Dose: 166.667 mls/hr Piperacillin Sod/Tazobactam (Sod 3.375 gm/ Sodium Chloride) 100 mls @ 100 mls/ hr IVPB Q8 [facility] Last Admin: 11/24/16 16:18 Dose: 100 mls/hr Insulin Human Regular (Humulin R) 0 units SC ACCU-CHECK [facility] PRN Reason: Protocol Last Admin: 11/24/16 16:33 Dose: 2 units Magnesium Oxide (Mag-Ox) 400 mg PO BID [facility] Last Admin: 11/24/16 16:20 Dose: Not Given Metronidazole (Flagyl) 500 mg NG Q8 [facility] Last Admin: 11/24/16 16:21 Dose: Not Given Pantoprazole Sodium (Protonix Inj) 40 mg IVP DAILY [facility] Last Admin: 11/24/16 08:19 Dose: 40 mg Sucralfate (Carafate Oral Susp) 1 gm PO QID [facility] Last Admin: 11/24/16 16:17 Dose: Not Given - Labs Labs: 11/24/16 05:30 11/24/16 05:30 PT 12.3 Seconds (9.8-13.1) 11/21/16 13:30 INR 1.2 (0.9-1.2) 11/21/16 13:30 APTT 33.7 Seconds (25.6-37.1) 11/21/16 13:30 - Constitutional Appears: Chronically Ill - Head Exam Head Exam: NORMAL INSPECTION - Eye Exam Eye Exam: PERRL - ENT Exam Additional comments: ET tube - Neck Exam Neck Exam: Normal Inspection - Respiratory Exam Respiratory Exam: Decreased Breath Sounds (at bases), Rhonchi (scattered) - Cardiovascular Exam Cardiovascular Exam: REGULAR RHYTHM - GI/Abdominal Exam GI & Abdominal Exam: Soft, Normal Bowel Sounds - Extremities Exam Additional comments: Unstageable ulcers: B/L heels, R lateral and media ankle, R lateral foot, pressure ulcer R hip, s/p amputation R third toe. - Back Exam Additional comments: Scral pressure ulcer unstageable. - Neurological Exam Neurological Exam: Awake Additional comments: Follows commands, no focal deficit, generalized weakness. - Psychiatric Exam Additional comments: Calm. - Skin Skin Exam: Warm Assessment and Plan (1) Acute hypercapnic respiratory failure Status: Acute (2) Klebsiella pneumonia Status: Acute (3) Dehydration Status: Acute (4) Septic shock Status: Acute (5) Hyperkalemia Status: Acute (6) GEORGINA (acute kidney injury) Status: Acute (7) Type 2 diabetes mellitus with hyperglycemia Status: Chronic (8) HTN (hypertension) Status: Chronic (9) C. difficile colitis Status: Acute - Assessment and Plan (Free Text) Plan: Discussed with Pt's family and they agree with Pt to be extubated, continue current Tx. ICU Time: 38 min.
--- NOTE | 2016-11-24 17:26 | PN ---
DATE: 11/24/2016 CRITICAL CARE PROGRESS NOTE LOCATION: The patient is in ICU, bed 424. TIME SPENT: 45 minutes. SUBJECTIVE: The patient was seen and examined at the bedside. Case was discussed in multidisciplinary ICU rounds. Events since admission noted. A 79-year-old male from [facility] admitted with hypercapnic hypoxic respiratory failure, healthcare-associated pneumonia, multiple sacral as well as unstageable wounds of both lower extremities. The patient is known to have dementia, former alcohol dependence and nicotine dependence. Overnight, intubated on mechanical ventilation. AC/PRBC, rate 12, with tidal volume 500, FiO2 40%, observed rate 22, exhaled tidal volume 470, minute ventilation 10.7 liters, saturating 100%, mean airway pressure 8, peak airway pressure of 18, plateau pressure 18, and end-tidal CO2 of 22. PHYSICAL EXAMINATION: VITAL SIGNS: Temperature 98.6, heart rate 83, regular, blood pressure 132/59, oxygen saturating 100%, FiO2 40%. Intake of 3562 and output 902. Positive balance 2660 in the last 24 hours. HEAD, EYES, EARS, NOSE, AND THROAT: Pupils are reactive. Conjunctivae pink. Sclerae white. NECK: Supple. Trachea is central. CHEST: Bilateral breath sounds diminished, diminished in intensity, expiration now prolonged. HEART: Rhythm regular. S1 and S2 normal. ABDOMEN: Bowel sounds present and soft. Liver and spleen not palpable. EXTREMITIES: Trace dependant edema. Peripheral pulses are reduced in intensity, status post amputation of the right third toe. SKIN: Sacral decubitus, unstable. Skin breakdown in both lower extremities, unstable. NEUROLOGIC: Opens eyes on calling names, slow to respond. Follows simple commands. Unable to lift head off the bed. LABORATORY DATA: WBC 15.7, hemoglobin 8.1, hematocrit 24.6,and platelet count 87. PT 12.5, INR 1.2, PTT 33.7. ABG, pH 7.43, PO2 of 150, PCO2 27, oxygen saturation 100.6. On AC 500, 40%, PEEP of 5. SMA-7, sodium 147, potassium 3.2, chloride 119, CO2 17, blood urea nitrogen 42, creatinine 1.5, and glucose 187. Urinalysis; RBC 43, WBC 2. Stool occult blood positive. Serology, C. diff positive. Sputum culture, positive Klebsiella pneumoniae. Blood culture, no growth reported. Urine culture, no growth reported. CURRENT MEDICATIONS: Vancomycin 1 g IV daily, Zosyn 3.375 g q.8 hours, Protonix 40 IV daily, Flagyl 500 mg 3 times q.8 hours, magnesium oxide 400 mg twice a day, Accu-Chek with regular insulin coverage, D5 half normal at 42 mL/hour, DuoNeb 3 mL q.6 hours, and Tylenol 650 q.4 hours p.r.n. IMPRESSION: 1. Neurology. Resolving septic toxic, metabolic encephalopathy, more wakeful than baseline, however, slow to respond. History of mild dementia in the past. History of alcohol dependence in the past suspected Wernicke's encephalopathy. 2. Pulmonary when the dependent respiratory failure. Spontaneous breathing trial failed yesterday. Tolerating it today. We will follow the repeat blood gas and reading parameters. We will attempt to extubation to discuss with family regarding further plan in case if extubation fails and need to be intubated given reduced mental status and the risk of unprotected airway. Cardiac remains normotensive. GI, guaiac positive stool, gastritis. Status post transfusion, a unit of packed red blood cells with rapid hemoglobin 8.1. 3. Renal. Acute on chronic renal insufficiency, improving BUN and creatinine. Continue D5 half normal at 42 mL/hour. Sodium improved on free water and the hypotonic saline. 4. Hematology. Anemia of chronic disease plus guaiac positive stool, status post transfusion unit of packed red blood cells. 5. Endocrine. Maintain blood sugar less than 180. 6. Keep the head of bed 30 degree up. GI prophylaxis with sucralfate and Protonix. Anticoagulation on hold secondary to anemia and guaiac positive stool with risk of mild bleeding. We will attempt extubation after discussion with family by PMD. Dr. Day discussed with family,remains full code. Heri Izquierdo MD [facility]
[2016-11-24] MEDS: Dextrose 5%/0.45% NS 1,000 ML IV SCH (21:30)
[2016-11-25] MEDS: Piperacillin/Tazobact 3.375 GM in Sodium Chloride 0.9% 100 ML IVPB SCH ×3 (00:45→16:18)
[2016-11-25] MEDS: Insulin Regular 100 units/ml SC SCH ×4 (06:28→22:00)
[2016-11-25 06:54] LABS: BASO # 0.2 K/uL (0.0-0.2); BASO % 1.3 % (0.0-2.0); EOS # 0.3 K/uL (0.0-0.7); EOS % 2.2 % (0.0-4.0); HEMATOCRIT 25.2 % (35.0-51.0); LYMPH # 1.8 K/uL (1.0-4.3); LYMPH % 14.7 % (20.0-40.0); MEAN CELL VOLUME 90.8 fl (80.0-94.0); MEAN CORPUSCULAR HEMOGLOBIN 29.5 pg (27.0-31.0); MEAN CORPUSCULAR HGB CONC 32.5 g/dL (33.0-37.0); MEAN PLATELET VOLUME 10.6 fl (7.2-11.7); MONO # 0.7 K/uL (0.0-0.8); NEUT # 9.2 K/uL (1.8-7.0); NEUT % 75.8 % (50.0-75.0); RED CELL DISTRIBUTION WIDTH 16.3 % (11.5-14.5); WHITE BLOOD COUNT 12.2 K/uL (4.8-10.8)
[2016-11-25] MEDS: Albuterol-Ipratrop 3 mg / 0.5 (3 ml) UD INH SCH ×4 (07:48→19:17)
[2016-11-25] MEDS: Magnesium Oxide 400 mg Tab UD PO SCH ×2 (08:17→16:18)
[2016-11-25] MEDS: Sucralfate 1 gm/10 ml Oral Susp UD PO SCH ×4 (08:17→21:11)
--- NOTE | 2016-11-25 11:31 | CP.PCM.PN ---
Subjective - Date & Time of Evaluation Date of Evaluation: 11/25/16 Time of Evaluation: 11:29 - Subjective Subjective: No new events reported Blood work BMP still pending Blood work from yesterday have been reviewed already Continue gentle hydration carefully Physical exam Chest no rales Heart no rubs Abdomen soft A and P Hypernatremia improving hyperchloremia improving continue monitoring Follow-up BMP and follow-up serum creatinine Improving acute kidney injury as of yesterday Objective - Vital Signs/Intake and Output Vital Signs (last 24 hours): Temp Pulse Resp BP Pulse Ox 98.6 F 98 H 21 143/66 95 11/25/16 08:00 11/25/16 10:00 11/25/16 10:00 11/25/16 10:00 11/25/16 10:00 Intake and Output: 11/25/16 11/25/16 06:59 18:59 Intake Total 736 392 Output Total 700 Balance 36 392 - Medications Medications: Current Medications Acetaminophen (Tylenol 650 Mg Supp) 650 mg [place] Q4 PRN PRN Reason: Fever >100.4 F Acetaminophen (Tylenol 650mg/20.3ml Solution Ud) 650 mg PO Q4 PRN PRN Reason: Temperature Last Admin: 11/23/16 23:50 Dose: 650 mg Albuterol/Ipratropium (Duoneb 3 Mg/0.5 Mg (3 Ml) Ud) 3 ml INH RQID [facility] Last Admin: 11/25/16 11:12 Dose: 3 ml Vancomycin HCl 1 gm/ Sodium (Chloride) 250 mls @ 166.667 mls/hr IVPB DAILY [facility] Last Admin: 11/25/16 08:48 Dose: 166.667 mls/hr Piperacillin Sod/Tazobactam (Sod 3.375 gm/ Sodium Chloride) 100 mls @ 100 mls/ hr IVPB Q8 [facility] Last Admin: 11/25/16 08:15 Dose: 100 mls/hr Insulin Human Regular (Humulin R) 0 units SC ACCU-CHECK [facility] PRN Reason: Protocol Last Admin: 11/25/16 06:28 Dose: Not Given Magnesium Oxide (Mag-Ox) 400 mg PO BID [facility] Last Admin: 11/25/16 08:17 Dose: 400 mg Metronidazole (Flagyl) 500 mg NG Q8 [facility] Last Admin: 11/25/16 08:17 Dose: 500 mg Pantoprazole Sodium (Protonix Inj) 40 mg IVP DAILY [facility] Last Admin: 11/25/16 08:16 Dose: 40 mg Sucralfate (Carafate Oral Susp) 1 gm PO QID [facility] Last Admin: 11/25/16 08:17 Dose: 1 gm - Labs Labs: 11/25/16 05:00 11/24/16 05:30 PT 12.3 Seconds (9.8-13.1) 11/21/16 13:30 INR 1.2 (0.9-1.2) 11/21/16 13:30 APTT 33.7 Seconds (25.6-37.1) 11/21/16 13:30 Assessment and Plan (1) GEORGINA (acute kidney injury) Status: Acute (2) Acute hypercapnic respiratory failure Status: Acute (3) Leukocytosis Status: Acute (4) Pneumonia Status: Deleted
--- NOTE | 2016-11-25 16:32 | CP.PCM.PN ---
Subjective - Date & Time of Evaluation Date of Evaluation: 11/25/16 Time of Evaluation: 10:15 - Subjective Subjective: F/U Respiratory Failure. No AD, follows commands , on V Mask 50% Objective - Vital Signs/Intake and Output Vital Signs (last 24 hours): Temp Pulse Resp BP Pulse Ox 97.6 F 82 21 128/64 100 11/25/16 16:00 11/25/16 16:00 11/25/16 16:00 11/25/16 16:00 11/25/16 16:00 Intake and Output: 11/25/16 11/25/16 06:59 18:59 Intake Total 736 560 Output Total 700 Balance 36 560 - Medications Medications: Current Medications Acetaminophen (Tylenol 650 Mg Supp) 650 mg [place] Q4 PRN PRN Reason: Fever >100.4 F Acetaminophen (Tylenol 650mg/20.3ml Solution Ud) 650 mg PO Q4 PRN PRN Reason: Temperature Last Admin: 11/23/16 23:50 Dose: 650 mg Albuterol/Ipratropium (Duoneb 3 Mg/0.5 Mg (3 Ml) Ud) 3 ml INH RQID [facility] Last Admin: 11/25/16 15:31 Dose: 3 ml Piperacillin Sod/Tazobactam (Sod 3.375 gm/ Sodium Chloride) 100 mls @ 100 mls/ hr IVPB Q8 [facility] Last Admin: 11/25/16 16:18 Dose: 100 mls/hr Insulin Human Regular (Humulin R) 0 units SC ACCU-CHECK [facility] PRN Reason: Protocol Last Admin: 11/25/16 12:08 Dose: Not Given Magnesium Oxide (Mag-Ox) 400 mg PO BID [facility] Last Admin: 11/25/16 16:18 Dose: 400 mg Metronidazole (Flagyl) 500 mg NG Q8 [facility] Last Admin: 11/25/16 16:18 Dose: 500 mg Pantoprazole Sodium (Protonix Inj) 40 mg IVP DAILY [facility] Last Admin: 11/25/16 08:16 Dose: 40 mg Sucralfate (Carafate Oral Susp) 1 gm PO QID [facility] Last Admin: 11/25/16 16:18 Dose: 1 gm - Labs Labs: 11/25/16 05:00 11/24/16 05:30 PT 12.3 Seconds (9.8-13.1) 11/21/16 13:30 INR 1.2 (0.9-1.2) 11/21/16 13:30 APTT 33.7 Seconds (25.6-37.1) 11/21/16 13:30 - Constitutional Appears: Chronically Ill - Head Exam Head Exam: NORMAL INSPECTION - Eye Exam Eye Exam: PERRL - ENT Exam ENT Exam: Normal Exam Additional comments: Extubated - Neck Exam Neck Exam: Normal Inspection - Respiratory Exam Respiratory Exam: Decreased Breath Sounds (at bases), Rhonchi (b/l) Additional comments: OG T removed, on ventimask. - Cardiovascular Exam Cardiovascular Exam: REGULAR RHYTHM - GI/Abdominal Exam GI & Abdominal Exam: Soft, Normal Bowel Sounds - Extremities Exam Additional comments: Unstageable ulcers: R lateral distal foot, R medial heel, R lateral heel, R hip. S/P amputation R 3rd toe - Back Exam Additional comments: Sacral ulcer unstageable. - Neurological Exam Neurological Exam: Awake Additional comments: Follows simple commands, - Psychiatric Exam Additional comments: Calm. - Skin Skin Exam: Warm Assessment and Plan (1) Acute hypercapnic respiratory failure Status: Acute (2) Klebsiella pneumonia Status: Acute (3) Dehydration Status: Acute (4) Septic shock Status: Acute (5) Hyperkalemia Status: Acute (6) GEORGINA (acute kidney injury) Status: Acute (7) Type 2 diabetes mellitus with hyperglycemia Status: Chronic (8) HTN (hypertension) Status: Chronic (9) C. difficile colitis Status: Acute - Assessment and Plan (Free Text) Plan: Sputum Klebsiella , Continue Zosyn , Duo Neb , V Mask 50% and rest of treatment ICU Time: 39 min.
--- NOTE | 2016-11-25 22:56 | PN ---
DATE: 11/25/2016 CRITICAL CARE PROGRESS NOTE LOCATION: ICU, bed 424. TIME SPENT: 35 minutes. SUBJECTIVE: The patient is seen and evaluated at the bedside. Events since admission noted. Overnight events reviewed. A 71-year-old male, former smoker, alcohol dependence, dementia, from residential, admitted with hypercapnic hypoxic respiratory failure, Klebsiella pneumonia, multiple sacral as well as unstageable wounds of right and left lower extremities, extubated, placed on ventimask, saturating over 94%. Alert, awake, able to swallow, well fed, noted to have some secretions in the throat with gurgling. No sign of aspiration after the liquid diet. Swallow evaluation pending. No distress noted. OBJECTIVE: VITAL SIGNS: Temperature 98.8, heart rate 82, blood pressure 114/69. HEAD, EYES, EARS, NOSE AND THROAT: Pupils are reactive. Conjunctivae pink. Sclerae white. NECK: Supple. CHEST: Bilateral breath sounds diminished in intensity. Scattered rhonchi. HEART: Rhythm regular. S1 and S2 normal. ABDOMEN: Bowel sounds present and soft. Liver and spleen are not palpable. Bladder not distended. EXTREMITIES: Unstageable decubitus, right lateral and right medial foot, right distal foot, and also on the left heel. Unstageable sacral wound. No palpable cord. NEUROLOGICAL: Slow to respond, but wakeful. Swallows food appropriately. CURRENT MEDICATIONS: DuoNeb 3 mL via nebulizer q.6 hours, Tylenol 650 suppository q.4 hours p.r.n., Accu-Chek with regular insulin coverage, magnesium oxide 400 mg twice daily, Flagyl 500 mg per NG q.8 hours, Protonix 40 IV daily, Zosyn 3.375 g IV q.8 hours, vancomycin 1 g IV daily. LABORATORY DATA: WBC 12.2, hemoglobin 8.2, hematocrit 25.2, platelet count 98. SMA-7 pending. Urine culture; RBC 43, WBC 2. Stool occult blood positive. Vancomycin trough level 30.2. Serology: C. diff toxin B gene positive. Sputum culture positive for Klebsiella pneumoniae. IMPRESSION: 1. Pulmonary: Status post ventilator-dependent respiratory failure, extubated, on oxygen supplement, saturating well, no distress noted. Admitted with hypercapnic respiratory failure. Unclear history of chronic obstructive pulmonary disease. Continue DuoNeb. Add Pulmicort. 2. Cardiac: Remains in sinus rhythm. Normotensive. 3. Neurologic: Alert and awake, but slow to respond, question underlying dementia. Former alcohol abuser. 4. Gastrointestinal: Gastroesophageal reflux disease, guaiac-positive stool, on Protonix and Carafate. 5. Renal: Acute on chronic renal insufficiency. Hypernatremia, follow the current sodium level, SMA-7 pending. Appreciate renal followup. Continue gentle IV hydration. 6. Endocrine: Blood sugar maintained below 180. 7. Hematology: Anemia of chronic disease, but guaiac positive stool, with occult loss of blood secondary to gastritis, status post transfusion of 1 unit of packed red blood cells. Hemoglobin remains stable. Thrombocytopenia, off anticoagulation. Closely monitor for further decrease in platelet count. Continue sequential compression devices for deep venous thrombosis prophylaxis. Follow swallow evaluation. Heri Izquierdo MD
[2016-11-26] MEDS: Insulin Regular 100 units/ml SC SCH ×4 (06:42→22:11)
[2016-11-26] MEDS: Albuterol-Ipratrop 3 mg / 0.5 (3 ml) UD INH SCH ×4 (07:18→19:31)
[2016-11-26] MEDS: Sucralfate 1 gm/10 ml Oral Susp UD PO SCH ×4 (09:05→23:13)
[2016-11-26] MEDS: Magnesium Oxide 400 mg Tab UD PO SCH ×2 (09:05→17:36)
[2016-11-26] MEDS: Piperacillin/Tazobact 3.375 GM in Sodium Chloride 0.9% 100 ML IVPB SCH ×2 (09:06→17:36)
[2016-11-26 10:34] LABS: BASO # 0.1 K/uL (0.0-0.2); BASO % 0.7 % (0.0-2.0); EOS # 0.3 K/uL (0.0-0.7); EOS % 2.8 % (0.0-4.0); HEMATOCRIT 29.6 % (35.0-51.0); LYMPH # 1.9 K/uL (1.0-4.3); LYMPH % 18.1 % (20.0-40.0); MEAN CELL VOLUME 92.1 fl (80.0-94.0); MEAN CORPUSCULAR HEMOGLOBIN 29.9 pg (27.0-31.0); MEAN CORPUSCULAR HGB CONC 32.5 g/dL (33.0-37.0); MEAN PLATELET VOLUME 10.6 fl (7.2-11.7); MONO # 0.9 K/uL (0.0-0.8); MONO % 8.1 % (0.0-10.0); NEUT # 7.4 K/uL (1.8-7.0); NEUT % 70.3 % (50.0-75.0); RED CELL DISTRIBUTION WIDTH 16.7 % (11.5-14.5); WHITE BLOOD COUNT 10.6 K/uL (4.8-10.8)
[2016-11-26 10:59] LABS: ALB/GLOB RATIO 0.6 (1.0-2.1); ALKALINE PHOSPHATASE 193 U/L (38-126); ALT/SGPT 24 U/L (21-72); AST/SGOT 17 U/L (17-59); BILIRUBIN,TOTAL 0.4 mg/dl (0.2-1.3); BLOOD UREA NITROGEN 27 mg/dl (9-20); CALCIUM 7.6 mg/dL (8.4-10.2); CARBON DIOXIDE 18 mmol/L (22-30); CHLORIDE 120 mmol/L (98-107); GFR AFRICAN-AMERICAN > 60; GLUCOSE,RANDOM 76 mg/dL (75-110); POTASSIUM 3.3 MMOL/L (3.6-5.0); SODIUM 148 mmol/l (132-148); TOTAL PROTEIN 6.7 G/DL (6.3-8.2)
--- NOTE | 2016-11-26 11:21 | CP.PCM.PN ---
Subjective - Date & Time of Evaluation Date of Evaluation: 11/26/16 Time of Evaluation: 11:18 - Subjective Subjective: No significant changes patient remained intubated Lab reviewed serum creatinine coming down and he appeared to be recovering from acute kidney injury Objective - Vital Signs/Intake and Output Vital Signs (last 24 hours): Temp Pulse Resp BP Pulse Ox 97.6 F 89 22 161/80 H 98 11/26/16 04:00 11/26/16 06:00 11/26/16 06:00 11/26/16 06:00 11/26/16 06:00 Intake and Output: 11/26/16 11/26/16 06:59 18:59 Intake Total 704 Output Total 1000 Balance -296 - Medications Medications: Current Medications Acetaminophen (Tylenol 650 Mg Supp) 650 mg [place] Q4 PRN PRN Reason: Fever >100.4 F Acetaminophen (Tylenol 650mg/20.3ml Solution Ud) 650 mg PO Q4 PRN PRN Reason: Temperature Last Admin: 11/23/16 23:50 Dose: 650 mg Albuterol/Ipratropium (Duoneb 3 Mg/0.5 Mg (3 Ml) Ud) 3 ml INH RQID [facility] Last Admin: 11/26/16 07:18 Dose: 3 ml Piperacillin Sod/Tazobactam (Sod 3.375 gm/ Sodium Chloride) 100 mls @ 100 mls/ hr IVPB Q8 [facility] Last Admin: 11/26/16 09:06 Dose: 100 mls/hr Insulin Human Regular (Humulin R) 0 units SC ACCU-CHECK [facility] PRN Reason: Protocol Last Admin: 11/26/16 06:42 Dose: Not Given Magnesium Oxide (Mag-Ox) 400 mg PO BID [facility] Last Admin: 11/26/16 09:05 Dose: 400 mg Metronidazole (Flagyl) 500 mg NG Q8 [facility] Last Admin: 11/26/16 09:05 Dose: 500 mg Pantoprazole Sodium (Protonix Inj) 40 mg IVP DAILY [facility] Last Admin: 11/26/16 09:05 Dose: 40 mg Sucralfate (Carafate Oral Susp) 1 gm PO QID [facility] Last Admin: 11/26/16 09:05 Dose: 1 gm - Labs Labs: 11/26/16 10:25 11/26/16 10:25 PT 12.3 Seconds (9.8-13.1) 11/21/16 13:30 INR 1.2 (0.9-1.2) 11/21/16 13:30 APTT 33.7 Seconds (25.6-37.1) 11/21/16 13:30 - Constitutional Appears: No Acute Distress - ENT Exam ENT Exam: Mucous Membranes Moist - Cardiovascular Exam Cardiovascular Exam: absent: Rubs - GI/Abdominal Exam GI & Abdominal Exam: Normal Bowel Sounds - Extremities Exam Extremities Exam: absent: Calf Tenderness - Back Exam Back Exam: absent: CVA tenderness (L), CVA tenderness (R) - Neurological Exam Neurological Exam: Altered Assessment and Plan (1) GEORGINA (acute kidney injury) Assessment & Plan: Patient is recovering from acute kidney injury however serum chloride and sodium is still elevated. Continue gentle hydration Status: Acute (2) Acute hypercapnic respiratory failure Status: Acute (3) Leukocytosis Status: Acute (4) Pneumonia Status: Deleted
--- NOTE | 2016-11-26 14:54 | CP.PCM.PN ---
Subjective - Date & Time of Evaluation Date of Evaluation: 11/26/16 Time of Evaluation: 11:00 - Subjective Subjective: F/U Respiratory Failure. Pt awake, follows commands, no A/D, ate breakfast, VS stable. Objective - Vital Signs/Intake and Output Vital Signs (last 24 hours): Temp Pulse Resp BP Pulse Ox 98.4 F 97 H 29 H 145/67 99 11/26/16 12:00 11/26/16 12:00 11/26/16 12:00 11/26/16 12:00 11/26/16 12:00 Intake and Output: 11/26/16 11/26/16 06:59 18:59 Intake Total 704 220 Output Total 1000 Balance -296 220 - Medications Medications: Current Medications Acetaminophen (Tylenol 650 Mg Supp) 650 mg [place] Q4 PRN PRN Reason: Fever >100.4 F Acetaminophen (Tylenol 650mg/20.3ml Solution Ud) 650 mg PO Q4 PRN PRN Reason: Temperature Last Admin: 11/23/16 23:50 Dose: 650 mg Acetylcysteine (Acetylcysteine 20%) 2 ml INH RQID [facility] Albuterol/Ipratropium (Duoneb 3 Mg/0.5 Mg (3 Ml) Ud) 3 ml INH RQID [facility] Last Admin: 11/26/16 11:49 Dose: 3 ml Piperacillin Sod/Tazobactam (Sod 3.375 gm/ Sodium Chloride) 100 mls @ 100 mls/ hr IVPB Q8 [facility] Last Admin: 11/26/16 09:06 Dose: 100 mls/hr Insulin Human Regular (Humulin R) 0 units SC ACCU-CHECK [facility] PRN Reason: Protocol Last Admin: 11/26/16 11:55 Dose: Not Given Magnesium Oxide (Mag-Ox) 400 mg PO BID [facility] Last Admin: 11/26/16 09:05 Dose: 400 mg Metronidazole (Flagyl) 500 mg NG Q8 [facility] Last Admin: 11/26/16 09:05 Dose: 500 mg Pantoprazole Sodium (Protonix Inj) 40 mg IVP DAILY [facility] Last Admin: 11/26/16 09:05 Dose: 40 mg Sucralfate (Carafate Oral Susp) 1 gm PO QID [facility] Last Admin: 11/26/16 14:47 Dose: Not Given - Labs Labs: 11/26/16 10:25 11/26/16 10:25 PT 12.3 Seconds (9.8-13.1) 11/21/16 13:30 INR 1.2 (0.9-1.2) 11/21/16 13:30 APTT 33.7 Seconds (25.6-37.1) 11/21/16 13:30 - Constitutional Appears: Chronically Ill - Head Exam Head Exam: NORMAL INSPECTION - Eye Exam Eye Exam: PERRL - ENT Exam ENT Exam: Normal Exam - Neck Exam Neck Exam: Normal Inspection - Respiratory Exam Respiratory Exam: Decreased Breath Sounds (at bases), Rhonchi (b/l) - Cardiovascular Exam Cardiovascular Exam: REGULAR RHYTHM - GI/Abdominal Exam GI & Abdominal Exam: Soft, Normal Bowel Sounds - Extremities Exam Additional comments: Unstageable ulcers: R lateral distal foot, R medial heel, R lateral heel, R hip. S/P amputation R 3rd toe Edema Upper extremities. - Back Exam Additional comments: Sacral ulcer unstageable. - Neurological Exam Neurological Exam: Awake Additional comments: Follows simple commands - Skin Skin Exam: Warm Assessment and Plan (1) Acute hypercapnic respiratory failure Status: Acute (2) Klebsiella pneumonia Status: Acute (3) Dehydration Status: Acute (4) Septic shock Status: Acute (5) Hyperkalemia Status: Acute (6) GEORGINA (acute kidney injury) Status: Acute (7) Type 2 diabetes mellitus with hyperglycemia Status: Chronic (8) HTN (hypertension) Status: Chronic (9) C. difficile colitis Status: Acute - Assessment and Plan (Free Text) Plan: Continue NC 3 L/M, continue Zosyn, Duoneb, Humalin R, Flagyl and rest of Tx.
[2016-11-26] MEDS: Acetylcysteine 20% Inhal Soln (4ml) INH SCH ×2 (15:44→19:31)
--- NOTE | 2016-11-26 16:10 | CP.PCM.PN ---
Subjective - Date & Time of Evaluation Date of Evaluation: 11/26/16 Time of Evaluation: 16:10 - Subjective Subjective: ID Note- Pt. seen and examined today in tele floor. pt. awake and alert and denies any complaints. has cough with thick phlegm but denies any sob. Objective - Vital Signs/Intake and Output Vital Signs (last 24 hours): Temp Pulse Resp BP Pulse Ox 97.8 F 111 H 20 151/81 H 59 L 11/26/16 16:01 11/26/16 16:01 11/26/16 16:01 11/26/16 16:01 11/26/16 16:01 Intake and Output: 11/26/16 11/26/16 06:59 18:59 Intake Total 704 220 Output Total 1000 Balance -296 220 - Medications Medications: Current Medications Acetaminophen (Tylenol 650 Mg Supp) 650 mg [place] Q4 PRN PRN Reason: Fever >100.4 F Acetaminophen (Tylenol 650mg/20.3ml Solution Ud) 650 mg PO Q4 PRN PRN Reason: Temperature Last Admin: 11/23/16 23:50 Dose: 650 mg Acetylcysteine (Acetylcysteine 20%) 2 ml INH RQID [facility] Last Admin: 11/26/16 15:44 Dose: 2 ml Albuterol/Ipratropium (Duoneb 3 Mg/0.5 Mg (3 Ml) Ud) 3 ml INH RQID [facility] Last Admin: 11/26/16 15:44 Dose: 3 ml Piperacillin Sod/Tazobactam (Sod 3.375 gm/ Sodium Chloride) 100 mls @ 100 mls/ hr IVPB Q8 [facility] Last Admin: 11/26/16 09:06 Dose: 100 mls/hr Insulin Human Regular (Humulin R) 0 units SC ACCU-CHECK [facility]ARRY PRN Reason: Protocol Last Admin: 11/26/16 11:55 Dose: Not Given Magnesium Oxide (Mag-Ox) 400 mg PO BID [facility] Last Admin: 11/26/16 09:05 Dose: 400 mg Metronidazole (Flagyl) 500 mg NG Q8 [facility] Last Admin: 11/26/16 09:05 Dose: 500 mg Pantoprazole Sodium (Protonix Inj) 40 mg IVP DAILY [facility] Last Admin: 11/26/16 09:05 Dose: 40 mg Sucralfate (Carafate Oral Susp) 1 gm PO QID [facility] Last Admin: 11/26/16 14:47 Dose: Not Given - Labs Labs: 0 - Constitutional Appears: No Acute Distress - Head Exam Head Exam: ATRAUMATIC - Eye Exam Eye Exam: EOMI, PERRL - ENT Exam Additional comments: dry oral mucosa - Respiratory Exam Respiratory Exam: NORMAL BREATHING PATTERN Additional comments: coarse cough no wheezing - Cardiovascular Exam Cardiovascular Exam: RRR, +S1, +S2 - GI/Abdominal Exam GI & Abdominal Exam: Soft, Normal Bowel Sounds Additional comments: NT, ND - Extremities Exam Additional comments: no edema b/l LE dry b/l heel ulcers - Neurological Exam Neurological Exam: Awake - Additional Findings Additional findings: Laboratory Results - last 72 hr 11/22/16 11/23/16 11/24/16 04:20 22:16 05:19 WBC RBC Hgb Hct MCV MCH MCHC RDW Plt Count MPV Neut % (Auto) Lymph % (Auto) Erath % (Auto) Eos % (Auto) Baso % (Auto) Neut # Lymph # Erath # Eos # Baso # pCO2 27 L pO2 150 H HCO3 20.7 L ABG pH 7.43 ABG Total CO2 18.7 L ABG O2 Saturation 100.6 H ABG O2 Content 12.1 L ABG Base Excess -5.5 L ABG Hemoglobin 8.6 L ABG Carboxyhemoglobin 1.4 POC ABG HHb (Measured) -0.6 L ABG Methemoglobin 1.7 ABG O2 Capacity 12.0 L Torres Test Yes A-a O2 Difference 101.0 Hgb O2 Saturation 97.4 Vent Mode A/c Mechanical Rate 12 FiO2 40.0 Tidal Volume 500 PEEP 5 Sodium Potassium Chloride Carbon Dioxide Anion Gap BUN Creatinine Est GFR ( Amer) Est GFR (Non-Af Amer) POC Glucose (mg/dL) 164 H Random Glucose Calcium RBC Magnesium 6.4 Total Bilirubin AST ALT Alkaline Phosphatase Total Protein Albumin Globulin Albumin/Globulin Ratio Vancomycin Trough 11/24/16 11/24/16 11/24/16 05:30 05:30 05:37 WBC 15.7 H RBC 2.68 L Hgb 8.1 L Hct 24.6 L MCV 91.6 MCH 30.0 MCHC 32.8 L RDW 16.6 H Plt Count 87 L MPV Neut % (Auto) Lymph % (Auto) Erath % (Auto) Eos % (Auto) Baso % (Auto) Neut # Lymph # Erath # Eos # Baso # pCO2 pO2 HCO3 ABG pH ABG Total CO2 ABG O2 Saturation ABG O2 Content ABG Base Excess ABG Hemoglobin ABG Carboxyhemoglobin POC ABG HHb (Measured) ABG Methemoglobin ABG O2 Capacity Torres Test A-a O2 Difference Hgb O2 Saturation Vent Mode Mechanical Rate FiO2 Tidal Volume PEEP Sodium 147 Potassium 3.6 Chloride 119 H Carbon Dioxide 17 L Anion Gap 15 BUN 42 H Creatinine 1.5 Est GFR ( Amer) 56 Est GFR (Non-Af Amer) 46 POC Glucose (mg/dL) 215 H Random Glucose 187 H Calcium 7.4 L RBC Magnesium Total Bilirubin AST ALT Alkaline Phosphatase Total Protein Albumin Globulin Albumin/Globulin Ratio Vancomycin Trough 11/24/16 11/24/16 11/24/16 11:10 15:10 16:29 WBC RBC Hgb Hct MCV MCH MCHC RDW Plt Count MPV Neut % (Auto) Lymph % (Auto) Erath % (Auto) Eos % (Auto) Baso % (Auto) Neut # Lymph # Erath # Eos # Baso # pCO2 28 L pO2 113 H HCO3 21.0 ABG pH 7.43 ABG Total CO2 19.5 L ABG O2 Saturation 99.3 H ABG O2 Content 11.4 L ABG Base Excess -5.0 L ABG Hemoglobin 8.2 L ABG Carboxyhemoglobin 0.7 POC ABG HHb (Measured) 0.7 ABG Methemoglobin 1.7 ABG O2 Capacity 11.5 L Torres Test Yes A-a O2 Difference 137.0 Hgb O2 Saturation 96.9 Vent Mode Mechanical Rate FiO2 40.0 Tidal Volume PEEP Sodium Potassium Chloride Carbon Dioxide Anion Gap BUN Creatinine Est GFR ( Amer) Est GFR (Non-Af Amer) POC Glucose (mg/dL) 249 H 153 H Random Glucose Calcium RBC Magnesium Total Bilirubin AST ALT Alkaline Phosphatase Total Protein Albumin Globulin Albumin/Globulin Ratio Vancomycin Trough 11/24/16 11/25/16 11/25/16 21:49 04:49 05:00 WBC 12.2 H RBC 2.77 L Hgb 8.2 L Hct 25.2 L MCV 90.8 MCH 29.5 MCHC 32.5 L RDW 16.3 H Plt Count 98 L MPV 10.6 Neut % (Auto) 75.8 H Lymph % (Auto) 14.7 L Erath % (Auto) 6.0 Eos % (Auto) 2.2 Baso % (Auto) 1.3 Neut # 9.2 H Lymph # 1.8 Erath # 0.7 Eos # 0.3 Baso # 0.2 pCO2 pO2 HCO3 ABG pH ABG Total CO2 ABG O2 Saturation ABG O2 Content ABG Base Excess ABG Hemoglobin ABG Carboxyhemoglobin POC ABG HHb (Measured) ABG Methemoglobin ABG O2 Capacity Torres Test A-a O2 Difference Hgb O2 Saturation Vent Mode Mechanical Rate FiO2 Tidal Volume PEEP Sodium Potassium Chloride Carbon Dioxide Anion Gap BUN Creatinine Est GFR ( Amer) Est GFR (Non-Af Amer) POC Glucose (mg/dL) 102 78 Random Glucose Calcium RBC Magnesium Total Bilirubin AST ALT Alkaline Phosphatase Total Protein Albumin Globulin Albumin/Globulin Ratio Vancomycin Trough 11/25/16 11/25/16 11/25/16 05:00 11:10 16:36 WBC RBC Hgb Hct MCV MCH MCHC RDW Plt Count MPV Neut % (Auto) Lymph % (Auto) Erath % (Auto) Eos % (Auto) Baso % (Auto) Neut # Lymph # Erath # Eos # Baso # pCO2 pO2 HCO3 ABG pH ABG Total CO2 ABG O2 Saturation ABG O2 Content ABG Base Excess ABG Hemoglobin ABG Carboxyhemoglobin POC ABG HHb (Measured) ABG Methemoglobin ABG O2 Capacity Torres Test A-a O2 Difference Hgb O2 Saturation Vent Mode Mechanical Rate FiO2 Tidal Volume PEEP Sodium Potassium Chloride Carbon Dioxide Anion Gap BUN Creatinine Est GFR ( Amer) Est GFR (Non-Af Amer) POC Glucose (mg/dL) 117 H 138 H Random Glucose Calcium RBC Magnesium Total Bilirubin AST ALT Alkaline Phosphatase Total Protein Albumin Globulin Albumin/Globulin Ratio Vancomycin Trough 30.2 H 11/25/16 11/26/16 11/26/16 22:46 04:20 06:10 WBC RBC Hgb Hct MCV MCH MCHC RDW Plt Count MPV Neut % (Auto) Lymph % (Auto) Erath % (Auto) Eos % (Auto) Baso % (Auto) Neut # Lymph # Erath # Eos # Baso # pCO2 pO2 HCO3 ABG pH ABG Total CO2 ABG O2 Saturation ABG O2 Content ABG Base Excess ABG Hemoglobin ABG Carboxyhemoglobin POC ABG HHb (Measured) ABG Methemoglobin ABG O2 Capacity Torres Test A-a O2 Difference Hgb O2 Saturation Vent Mode Mechanical Rate FiO2 Tidal Volume PEEP Sodium Potassium Chloride Carbon Dioxide Anion Gap BUN Creatinine Est GFR ( Amer) Est GFR (Non-Af Amer) POC Glucose (mg/dL) 119 H 90 Random Glucose Calcium RBC Magnesium Total Bilirubin AST ALT Alkaline Phosphatase Total Protein Albumin Globulin Albumin/Globulin Ratio Vancomycin Trough 31.6 H 11/26/16 11/26/16 11/26/16 10:25 10:25 11:17 WBC 10.6 RBC 3.21 L Hgb 9.6 L Hct 29.6 L MCV 92.1 MCH 29.9 MCHC 32.5 L RDW 16.7 H Plt Count 140 MPV 10.6 Neut % (Auto) 70.3 Lymph % (Auto) 18.1 L Erath % (Auto) 8.1 Eos % (Auto) 2.8 Baso % (Auto) 0.7 Neut # 7.4 H Lymph # 1.9 Erath # 0.9 H Eos # 0.3 Baso # 0.1 pCO2 pO2 HCO3 ABG pH ABG Total CO2 ABG O2 Saturation ABG O2 Content ABG Base Excess ABG Hemoglobin ABG Carboxyhemoglobin POC ABG HHb (Measured) ABG Methemoglobin ABG O2 Capacity Torres Test A-a O2 Difference Hgb O2 Saturation Vent Mode Mechanical Rate FiO2 Tidal Volume PEEP Sodium 148 Potassium 3.3 L Chloride 120 H Carbon Dioxide 18 L Anion Gap 13 BUN 27 H Creatinine 1.1 Est GFR ( Amer) > 60 Est GFR (Non-Af Amer) > 60 POC Glucose (mg/dL) 128 H Random Glucose 76 Calcium 7.6 L RBC Magnesium Total Bilirubin 0.4 AST 17 D ALT 24 Alkaline Phosphatase 193 H D Total Protein 6.7 Albumin 2.4 L Globulin 4.2 H Albumin/Globulin Ratio 0.6 L Vancomycin Trough 11/26/16 17:06 WBC RBC Hgb Hct MCV MCH MCHC RDW Plt Count MPV Neut % (Auto) Lymph % (Auto) Erath % (Auto) Eos % (Auto) Baso % (Auto) Neut # Lymph # Erath # Eos # Baso # pCO2 pO2 HCO3 ABG pH ABG Total CO2 ABG O2 Saturation ABG O2 Content ABG Base Excess ABG Hemoglobin ABG Carboxyhemoglobin POC ABG HHb (Measured) ABG Methemoglobin ABG O2 Capacity Torres Test A-a O2 Difference Hgb O2 Saturation Vent Mode Mechanical Rate FiO2 Tidal Volume PEEP Sodium Potassium Chloride Carbon Dioxide Anion Gap BUN Creatinine Est GFR ( Amer) Est GFR (Non-Af Amer) POC Glucose (mg/dL) 97 Random Glucose Calcium RBC Magnesium Total Bilirubin AST ALT Alkaline Phosphatase Total Protein Albumin Globulin Albumin/Globulin Ratio Vancomycin Trough Microbiology 11/20/16 10:00 Blood-Venous Blood Culture - Final NO GROWTH AFTER 5 DAYS 11/20/16 10:00 Blood-Venous Gram Stain - Final TEST NOT PERFORMED 11/21/16 10:00 Trachasp Gram Stain - Final 11/21/16 10:00 Trachasp Sputum Culture - Final Klebsiella Pneumoniae Ssp Pneu 11/20/16 15:00 Nose MRSA Culture (Admit) - Final MRSA NOT DETECTED 11/20/16 01:57 Urine,Triplett Urine Culture - Final No Growth (<1,000 CFU/ML) Accession No. : [id number] Patient Name / ID : GRACE ANTON / [id number] Exam Date : 11/24/2016 04:42:50 ( Approved ) Study Comment : Sex / Age : M / 71Y Creator : BRITNEY GALLEGOS MD Dictator : BRITNEY GALLEGOS MD Railroad Carman : Vial Gauger : BRITNEY GALLEGOS MD Approver2 : Report Date : 11/24/2016 09:18:32 My Comment : HISTORY: Intubated COMPARISON: 11/23/2016 FINDINGS: LUNGS: Possible confluent opacity medial left lung base, unchanged. No other focal opacity elsewhere. PLEURA: No significant pleural effusion identified, no pneumothorax apparent. CARDIOVASCULAR: Normal heart size. Congestive change, grossly unchanged in extent. ET tube, NG tube and right IJ central venous catheter are all unchanged.Normal. OSSEOUS STRUCTURES: No significant abnormalities. VISUALIZED UPPER ABDOMEN: Normal. OTHER FINDINGS: None. IMPRESSION: Focal opacity medial left lung base. Possible pneumonia. Congestive change noted. Lines and tubes are unchanged. Assessment and Plan (1) Respiratory failure Status: Acute (2) Septic shock Status: Resolved (3) GEORGINA (acute kidney injury) Status: Acute (4) Leukocytosis Status: Acute - Assessment and Plan (Free Text) Assessment: A/P- 71 year old male from [place] with multiple medical conditions including DM II, HTN, previous e.fecalis bacteremia in 10/2016, h/o right third toe amputation for OM admitted with sob and hypoxemia and is intubated and on pressors. clinically better. breathing on his own, only on NC. afebrile leukocytosis resolved. blood cx- neg x 1 urine cx- neg sputum cx from trach- Klebsiella brower sensitive CXR- ? left lung pneumonia as per report + stool c.diff. cxr- pneumonia Plan- advise to continue with empiric broad spectrum abx coverage with vanco and zosyn day #7 the zosyn will treat the klebsilla pneumonia pneumonia . keep vanco trough <15. monitor aspiration precautions. continue with flagyl via OG tube for + c.diff. check 2 more repeat stool c.diff.
[2016-11-27] MEDS: Piperacillin/Tazobact 3.375 GM in Sodium Chloride 0.9% 100 ML IVPB SCH ×3 (01:14→17:02)
[2016-11-27] MEDS: Insulin Regular 100 units/ml SC SCH ×4 (06:58→22:12)
[2016-11-27] MEDS: Acetylcysteine 20% Inhal Soln (4ml) INH SCH ×3 (07:33→19:05)
[2016-11-27] MEDS: Albuterol-Ipratrop 3 mg / 0.5 (3 ml) UD INH SCH ×4 (07:33→19:05)
[2016-11-27] MEDS: Magnesium Oxide 400 mg Tab UD PO SCH ×3 (09:17→18:41)
[2016-11-27] MEDS: Sucralfate 1 gm/10 ml Oral Susp UD PO SCH ×4 (09:22→22:13)
--- NOTE | 2016-11-27 11:15 | CP.PCM.PN ---
Subjective - Date & Time of Evaluation Date of Evaluation: 11/27/16 Time of Evaluation: 11:13 - Subjective Subjective: seen and examined no complaints Objective - Vital Signs/Intake and Output Vital Signs (last 24 hours): Temp Pulse Resp BP Pulse Ox 98.7 F 101 H 18 150/71 97 11/27/16 08:00 11/27/16 08:00 11/27/16 08:00 11/27/16 08:00 11/27/16 08:00 Intake and Output: 11/27/16 11/27/16 06:59 18:59 Intake Total 580 Output Total 700 Balance -120 - Medications Medications: Current Medications Acetaminophen (Tylenol 650 Mg Supp) 650 mg [place] Q4 PRN PRN Reason: Fever >100.4 F Acetaminophen (Tylenol 650mg/20.3ml Solution Ud) 650 mg PO Q4 PRN PRN Reason: Temperature Last Admin: 11/23/16 23:50 Dose: 650 mg Acetylcysteine (Acetylcysteine 20%) 2 ml INH RQID [facility] Last Admin: 11/27/16 07:33 Dose: 2 ml Albuterol/Ipratropium (Duoneb 3 Mg/0.5 Mg (3 Ml) Ud) 3 ml INH RQID [facility] Last Admin: 11/27/16 07:33 Dose: 3 ml Piperacillin Sod/Tazobactam (Sod 3.375 gm/ Sodium Chloride) 100 mls @ 100 mls/ hr IVPB Q8 [facility] Last Admin: 11/27/16 09:19 Dose: 100 mls/hr Insulin Human Regular (Humulin R) 0 units SC ACCU-CHECK [facility]Y PRN Reason: Protocol Last Admin: 11/27/16 06:58 Dose: Not Given Magnesium Oxide (Mag-Ox) 400 mg PO BID [facility] Last Admin: 11/27/16 09:17 Dose: 400 mg Metronidazole (Flagyl) 500 mg PO Q8 [facility] Pantoprazole Sodium (Protonix Inj) 40 mg IVP DAILY [facility] Last Admin: 11/27/16 09:17 Dose: 40 mg Sucralfate (Carafate Oral Susp) 1 gm PO QID [facility] Last Admin: 11/27/16 09:22 Dose: 1 gm - Labs Labs: 11/26/16 10:25 11/26/16 10:25 PT 12.3 Seconds (9.8-13.1) 11/21/16 13:30 INR 1.2 (0.9-1.2) 11/21/16 13:30 APTT 33.7 Seconds (25.6-37.1) 11/21/16 13:30 - Constitutional Appears: Non-toxic - Head Exam Head Exam: ATRAUMATIC - Eye Exam Eye Exam: Normal appearance - ENT Exam Additional comments: dry mucous membrane - Neck Exam Neck Exam: Normal Inspection - Respiratory Exam Respiratory Exam: NORMAL BREATHING PATTERN - Cardiovascular Exam Cardiovascular Exam: +S1, +S2 - GI/Abdominal Exam GI & Abdominal Exam: Normal Bowel Sounds - Extremities Exam Additional comments: no edema - Neurological Exam Neurological Exam: Alert - Psychiatric Exam Psychiatric exam: Flat Affect - Skin Skin Exam: Normal Color Assessment and Plan - Assessment and Plan (Free Text) Assessment: arf / hypokalemia / hypernatremia awaiting labs for today if na rising recc inc free water intake replete K if remains low and check mag
[2016-11-27] MEDS ORDERED: Sodium Chloride 3% for Inhalation 4 ML VIAL.NEB IH PRN (14:56)
[2016-11-27] MEDS ORDERED: Albuterol-Ipratrop 3 mg / 0.5 (3 ml) UD INH PRN (15:00)
--- NOTE | 2016-11-27 16:45 | CP.PCM.PN ---
Subjective - Date & Time of Evaluation Date of Evaluation: 11/27/16 Time of Evaluation: 13:00 - Subjective Subjective: F/U Respiratory Failure. Pt awake, no A/D, no c/o, answering short words, appear weak. Objective - Vital Signs/Intake and Output Vital Signs (last 24 hours): Temp Pulse Resp BP Pulse Ox 98.8 F 97 H 18 143/78 99 11/27/16 13:00 11/27/16 13:00 11/27/16 13:00 11/27/16 13:00 11/27/16 13:00 Intake and Output: 11/27/16 11/27/16 06:59 18:59 Intake Total 580 Output Total 700 Balance -120 - Medications Medications: Current Medications Acetaminophen (Tylenol 650 Mg Supp) 650 mg [place] Q4 PRN PRN Reason: Fever >100.4 F Acetaminophen (Tylenol 650mg/20.3ml Solution Ud) 650 mg PO Q4 PRN PRN Reason: Temperature Last Admin: 11/23/16 23:50 Dose: 650 mg Acetylcysteine (Acetylcysteine 20%) 2 ml INH RBID [facility] Albuterol/Ipratropium (Duoneb 3 Mg/0.5 Mg (3 Ml) Ud) 3 ml INH RQID [facility] Last Admin: 11/27/16 15:10 Dose: 3 ml Albuterol/Ipratropium (Duoneb 3 Mg/0.5 Mg (3 Ml) Ud) 3 ml INH RQ6 PRN PRN Reason: Shortness of Breath Piperacillin Sod/Tazobactam (Sod 3.375 gm/ Sodium Chloride) 100 mls @ 100 mls/ hr IVPB Q8 [facility] Last Admin: 11/27/16 09:19 Dose: 100 mls/hr Insulin Human Regular (Humulin R) 0 units SC ACCU-CHECK [facility] PRN Reason: Protocol Last Admin: 11/27/16 13:01 Dose: Not Given Magnesium Oxide (Mag-Ox) 400 mg PO BID [facility] Last Admin: 11/27/16 09:17 Dose: 400 mg Metronidazole (Flagyl) 500 mg PO Q8 [facility] Last Admin: 11/27/16 11:50 Dose: 500 mg Pantoprazole Sodium (Protonix Inj) 40 mg IVP DAILY [facility] Last Admin: 11/27/16 09:17 Dose: 40 mg Sucralfate (Carafate Oral Susp) 1 gm PO QID [facility] Last Admin: 11/27/16 13:00 Dose: 1 gm - Labs Labs: 11/26/16 10:25 11/26/16 10:25 PT 12.3 Seconds (9.8-13.1) 11/21/16 13:30 INR 1.2 (0.9-1.2) 11/21/16 13:30 APTT 33.7 Seconds (25.6-37.1) 11/21/16 13:30 - Constitutional Appears: No Acute Distress, Chronically Ill - Head Exam Head Exam: NORMAL INSPECTION - Eye Exam Eye Exam: PERRL - ENT Exam ENT Exam: Normal Exam - Neck Exam Neck Exam: Normal Inspection - Respiratory Exam Respiratory Exam: Rhonchi (scattered b/l) - Cardiovascular Exam Cardiovascular Exam: REGULAR RHYTHM - GI/Abdominal Exam GI & Abdominal Exam: Soft, Normal Bowel Sounds - Extremities Exam Additional comments: Unstageable ulcers: R lateral distal foot, R medial heel, R lateral heel, S/P amputation R 3rd toe. Edema upper extremities. - Back Exam Additional comments: R sacral ulcer, unstageable. - Neurological Exam Neurological Exam: Awake Additional comments: Follows commands. - Psychiatric Exam Additional comments: Calm. - Skin Skin Exam: Warm Assessment and Plan (1) Acute hypercapnic respiratory failure Status: Acute (2) Klebsiella pneumonia Status: Acute (3) Dehydration Status: Acute (4) Septic shock Status: Acute (5) Hyperkalemia Status: Acute (6) GEORGINA (acute kidney injury) Status: Acute (7) Type 2 diabetes mellitus with hyperglycemia Status: Chronic (8) HTN (hypertension) Status: Chronic (9) C. difficile colitis Status: Acute - Assessment and Plan (Free Text) Plan: Continue current Tx, Zosyn , Flagyl , Vanco on hold
[2016-11-28] MEDS: Piperacillin/Tazobact 3.375 GM in Sodium Chloride 0.9% 100 ML IVPB SCH ×4 (01:22→16:27)
[2016-11-28] MEDS: Acetylcysteine 20% Inhal Soln (4ml) INH SCH ×2 (07:27→19:35)
[2016-11-28] MEDS: Albuterol-Ipratrop 3 mg / 0.5 (3 ml) UD INH SCH ×4 (07:28→19:34)
[2016-11-28] MEDS: Insulin Regular 100 units/ml SC SCH ×4 (08:11→22:08)
[2016-11-28] MEDS: Sucralfate 1 gm/10 ml Oral Susp UD PO SCH ×4 (09:25→22:08)
[2016-11-28] MEDS: Magnesium Oxide 400 mg Tab UD PO SCH ×2 (09:27→16:27)
[2016-11-28] MEDS ORDERED: Dextrose 5%/0.45% NS 1,000 ML IV SCH (15:45)
--- NOTE | 2016-11-28 19:28 | CP.PCM.PN ---
Subjective - Date & Time of Evaluation Date of Evaluation: 11/28/16 Time of Evaluation: 12:00 - Subjective Subjective: F/U respiratory failure. Pt awake, follows simple commands, no SOB. Objective - Vital Signs/Intake and Output Vital Signs (last 24 hours): Temp Pulse Resp BP Pulse Ox 99.2 F 86 18 117/89 99 11/28/16 19:22 11/28/16 19:22 11/28/16 19:22 11/28/16 19:22 11/28/16 19:22 Intake and Output: 11/28/16 11/29/16 18:59 06:59 Intake Total 260 Output Total 800 Balance -540 - Medications Medications: Current Medications Acetaminophen (Tylenol 650 Mg Supp) 650 mg [place] Q4 PRN PRN Reason: Fever >100.4 F Acetaminophen (Tylenol 650mg/20.3ml Solution Ud) 650 mg PO Q4 PRN PRN Reason: Temperature Last Admin: 11/23/16 23:50 Dose: 650 mg Acetylcysteine (Acetylcysteine 20%) 2 ml INH RBID [facility] Last Admin: 11/28/16 07:27 Dose: 2 ml Albuterol/Ipratropium (Duoneb 3 Mg/0.5 Mg (3 Ml) Ud) 3 ml INH RQID [facility] Last Admin: 11/28/16 15:43 Dose: 3 ml Albuterol/Ipratropium (Duoneb 3 Mg/0.5 Mg (3 Ml) Ud) 3 ml INH RQ6 PRN PRN Reason: Shortness of Breath Piperacillin Sod/Tazobactam (Sod 3.375 gm/ Sodium Chloride) 100 mls @ 100 mls/ hr IVPB Q8 [facility] Last Admin: 11/28/16 16:27 Dose: 100 mls/hr Dextrose/Sodium Chloride (Dextrose 5%/0.45% Ns 1000 Ml) 1,000 mls @ 80 mls/hr IV .[id number] [facility] Stop: 11/29/16 15:40 Last Admin: 11/28/16 16:26 Dose: 80 mls/hr Insulin Human Regular (Humulin R) 0 units SC ACCU-CHECK LARRY PRN Reason: Protocol Last Admin: 11/28/16 16:27 Dose: Not Given Magnesium Oxide (Mag-Ox) 400 mg PO BID [facility] Last Admin: 11/28/16 16:27 Dose: Not Given Metronidazole (Flagyl) 500 mg PO Q8 [facility] Last Admin: 11/28/16 16:26 Dose: Not Given Pantoprazole Sodium (Protonix Inj) 40 mg IVP DAILY [facility] Last Admin: 11/28/16 09:27 Dose: 40 mg Sucralfate (Carafate Oral Susp) 1 gm PO QID [facility] Last Admin: 11/28/16 16:26 Dose: Not Given - Labs Labs: 11/26/16 10:25 11/26/16 10:25 PT 12.3 Seconds (9.8-13.1) 11/21/16 13:30 INR 1.2 (0.9-1.2) 11/21/16 13:30 APTT 33.7 Seconds (25.6-37.1) 11/21/16 13:30 - Constitutional Appears: Chronically Ill - Head Exam Head Exam: NORMAL INSPECTION - Eye Exam Eye Exam: PERRL - ENT Exam ENT Exam: Normal Exam - Neck Exam Neck Exam: Normal Inspection - Respiratory Exam Respiratory Exam: Rhonchi (b/l) - Cardiovascular Exam Cardiovascular Exam: REGULAR RHYTHM - GI/Abdominal Exam GI & Abdominal Exam: Soft, Normal Bowel Sounds - Extremities Exam Additional comments: Unstageable ulcers RLE, R hip. S/P amputation R 3rd toe. - Back Exam Additional comments: R sacral ulcer, unstageable. - Neurological Exam Neurological Exam: Awake Additional comments: Follows simple commands, generalized weakness. - Psychiatric Exam Additional comments: Calm. - Skin Skin Exam: Warm Assessment and Plan (1) Acute hypercapnic respiratory failure Status: Acute (2) Klebsiella pneumonia Status: Acute (3) Dehydration Status: Acute (4) Septic shock Status: Acute (5) Hyperkalemia Status: Acute (6) GEORGINA (acute kidney injury) Status: Acute (7) Type 2 diabetes mellitus with hyperglycemia Status: Chronic (8) HTN (hypertension) Status: Chronic (9) C. difficile colitis Status: Acute - Assessment and Plan (Free Text) Plan: Pt unable to tolerate puree diet with thick honey fluid, to in NPO begins IV fluid, swallow eval tomorrow, continue current Tx.
[2016-11-29] MEDS: Piperacillin/Tazobact 3.375 GM in Sodium Chloride 0.9% 100 ML IVPB SCH ×3 (00:20→17:06)
[2016-11-29] MEDS: Albuterol-Ipratrop 3 mg / 0.5 (3 ml) UD INH SCH ×5 (07:29→20:12)
[2016-11-29] MEDS: Acetylcysteine 20% Inhal Soln (4ml) INH SCH ×2 (07:29→20:11)
[2016-11-29] MEDS: Magnesium Oxide 400 mg Tab UD PO SCH ×2 (10:30→17:04)
[2016-11-29] MEDS: Insulin Regular 100 units/ml SC SCH ×4 (10:31→23:27)
[2016-11-29] MEDS: Sucralfate 1 gm/10 ml Oral Susp UD PO SCH ×4 (10:31→21:29)
--- NOTE | 2016-11-29 12:24 | CP.PCM.PN ---
Subjective - Date & Time of Evaluation Date of Evaluation: 11/29/16 Time of Evaluation: 15:19 - Subjective Subjective: ID Note- Pt. seen and examined in tele unit. pt. awake and follows simple commands. denies any complaints. Objective - Vital Signs/Intake and Output Vital Signs (last 24 hours): Temp Pulse Resp BP Pulse Ox 99.0 F 87 20 140/83 95 11/29/16 08:00 11/29/16 08:00 11/29/16 08:00 11/29/16 08:00 11/29/16 08:00 Intake and Output: 11/29/16 11/29/16 06:59 18:59 Intake Total 980 Output Total 900 Balance 80 - Medications Medications: Current Medications Acetaminophen (Tylenol 650 Mg Supp) 650 mg [place] Q4 PRN PRN Reason: Fever >100.4 F Acetaminophen (Tylenol 650mg/20.3ml Solution Ud) 650 mg PO Q4 PRN PRN Reason: Temperature Last Admin: 11/23/16 23:50 Dose: 650 mg Acetylcysteine (Acetylcysteine 20%) 2 ml INH RBID [facility] Last Admin: 11/29/16 07:29 Dose: 2 ml Albuterol/Ipratropium (Duoneb 3 Mg/0.5 Mg (3 Ml) Ud) 3 ml INH RQID [facility] Last Admin: 11/29/16 07:29 Dose: 3 ml Albuterol/Ipratropium (Duoneb 3 Mg/0.5 Mg (3 Ml) Ud) 3 ml INH RQ6 PRN PRN Reason: Shortness of Breath Piperacillin Sod/Tazobactam (Sod 3.375 gm/ Sodium Chloride) 100 mls @ 100 mls/ hr IVPB Q8 [facility] Last Admin: 11/29/16 10:29 Dose: 100 mls/hr Dextrose/Sodium Chloride (Dextrose 5%/0.45% Ns 1000 Ml) 1,000 mls @ 80 mls/hr IV .[id number] [facility] Stop: 11/29/16 15:40 Last Admin: 11/28/16 16:26 Dose: 80 mls/hr Insulin Human Regular (Humulin R) 0 units SC ACCU-CHECK [facility] PRN Reason: Protocol Last Admin: 11/29/16 10:31 Dose: Not Given Magnesium Oxide (Mag-Ox) 400 mg PO BID [facility] Last Admin: 11/29/16 10:30 Dose: 400 mg Metronidazole (Flagyl) 500 mg PO Q8 [facility] Last Admin: 11/29/16 10:30 Dose: 500 mg Pantoprazole Sodium (Protonix Inj) 40 mg IVP DAILY [facility] Last Admin: 11/29/16 10:30 Dose: 40 mg Sucralfate (Carafate Oral Susp) 1 gm PO QID [facility] Last Admin: 11/29/16 10:31 Dose: Not Given - Labs Labs: - Additional Findings Additional findings: - Constitutional Appears: No Acute Distress - Head Exam Head Exam: ATRAUMATIC - Eye Exam Eye Exam: EOMI, PERRL - ENT Exam Additional comments: dry oral mucosa - Respiratory Exam Respiratory Exam: NORMAL BREATHING PATTERN Additional comments: thick phlegm no wheezing - Cardiovascular Exam Cardiovascular Exam: RRR, +S1, +S2 - GI/Abdominal Exam GI & Abdominal Exam: Soft, Normal Bowel Sounds Additional comments: NT, ND - Extremities Exam Additional comments: no edema b/l LE dry b/l heel ulcers - Neurological Exam Neurological Exam: Awake Laboratory Results - last 72 hr 11/24/16 11/26/16 11/26/16 Unknown 17:06 21:16 WBC RBC Hgb Hct MCV MCH MCHC RDW Plt Count MPV Neut % (Auto) Lymph % (Auto) [place] % (Auto) Eos % (Auto) Baso % (Auto) Neut # Lymph # [place] # Eos # Baso # Sodium Potassium Chloride Carbon Dioxide Anion Gap BUN Creatinine Est GFR ( Amer) Est GFR (Non-Af Amer) POC Glucose (mg/dL) 97 143 H Random Glucose Calcium Vancomycin Trough Random Vancomycin C. difficile Tox B Gene Not detected 11/27/16 11/27/16 11/27/16 05:07 08:49 11:27 WBC RBC Hgb Hct MCV MCH MCHC RDW Plt Count MPV Neut % (Auto) Lymph % (Auto) [place] % (Auto) Eos % (Auto) Baso % (Auto) Neut # Lymph # [place] # Eos # Baso # Sodium Potassium Chloride Carbon Dioxide Anion Gap BUN Creatinine Est GFR ( Amer) Est GFR (Non-Af Amer) POC Glucose (mg/dL) 95 139 H Random Glucose Calcium Vancomycin Trough 22.3 H Random Vancomycin C. difficile Tox B Gene 11/27/16 11/27/16 11/28/16 16:27 21:41 05:18 WBC RBC Hgb Hct MCV MCH MCHC RDW Plt Count MPV Neut % (Auto) Lymph % (Auto) [place] % (Auto) Eos % (Auto) Baso % (Auto) Neut # Lymph # [place] # Eos # Baso # Sodium Potassium Chloride Carbon Dioxide Anion Gap BUN Creatinine Est GFR ( Amer) Est GFR (Non-Af Amer) POC Glucose (mg/dL) 131 H 145 H 122 H Random Glucose Calcium Vancomycin Trough Random Vancomycin C. difficile Tox B Gene 11/28/16 11/28/16 11/28/16 11:41 16:14 21:06 WBC RBC Hgb Hct MCV MCH MCHC RDW Plt Count MPV Neut % (Auto) Lymph % (Auto) [place] % (Auto) Eos % (Auto) Baso % (Auto) Neut # Lymph # [place] # Eos # Baso # Sodium Potassium Chloride Carbon Dioxide Anion Gap BUN Creatinine Est GFR ( Amer) Est GFR (Non-Af Amer) POC Glucose (mg/dL) 108 106 99 Random Glucose Calcium Vancomycin Trough Random Vancomycin C. difficile Tox B Gene 11/29/16 11/29/16 11/29/16 05:26 12:56 12:56 WBC 9.9 RBC 2.88 L Hgb 8.6 L Hct 26.1 L MCV 90.6 MCH 30.0 MCHC 33.1 RDW 16.7 H Plt Count 193 MPV 8.6 Neut % (Auto) 71.4 Lymph % (Auto) 20.2 [place] % (Auto) 5.9 Eos % (Auto) 1.5 Baso % (Auto) 1.0 Neut # 7.1 H Lymph # 2.0 [place] # 0.6 Eos # 0.1 Baso # 0.1 Sodium 152 H Potassium 2.6 L Chloride 121 H Carbon Dioxide 20 L Anion Gap 14 BUN 18 Creatinine 1.1 Est GFR ( Amer) > 60 Est GFR (Non-Af Amer) > 60 POC Glucose (mg/dL) 102 Random Glucose 118 H Calcium 7.6 L Vancomycin Trough Random Vancomycin C. difficile Tox B Gene 11/29/16 12:56 WBC RBC Hgb Hct MCV MCH MCHC RDW Plt Count MPV Neut % (Auto) Lymph % (Auto) [place] % (Auto) Eos % (Auto) Baso % (Auto) Neut # Lymph # [place] # Eos # Baso # Sodium Potassium Chloride Carbon Dioxide Anion Gap BUN Creatinine Est GFR ( Amer) Est GFR (Non-Af Amer) POC Glucose (mg/dL) Random Glucose Calcium Vancomycin Trough Random Vancomycin 14.2 C. difficile Tox B Gene Microbiology 11/26/16 20:01 Nose MRSA Culture (Admit) - Final MRSA NOT DETECTED 11/20/16 10:00 Blood-Venous Blood Culture - Final NO GROWTH AFTER 5 DAYS 11/20/16 10:00 Blood-Venous Gram Stain - Final TEST NOT PERFORMED 11/21/16 10:00 Trachasp Gram Stain - Final 11/21/16 10:00 Trachasp Sputum Culture - Final Klebsiella Pneumoniae Ssp Pneu 11/20/16 15:00 Nose MRSA Culture (Admit) - Final MRSA NOT DETECTED 11/20/16 01:57 Urine,Triplett Urine Culture - Final No Growth (<1,000 CFU/ML) Assessment and Plan (1) Respiratory failure Status: Acute (2) Septic shock Status: Resolved (3) GEORGINA (acute kidney injury) Status: Acute (4) Leukocytosis Status: Acute - Assessment and Plan (Free Text) Assessment: A/P- 71 year old male from [place] with multiple medical conditions including DM II, HTN, previous e.fecalis bacteremia in 10/2016, h/o right third toe amputation for OM admitted with sob and hypoxemia and is intubated and on pressors. clinically better. breathing on his own, only on NC. afebrile leukocytosis resolved. blood cx- neg x 1 urine cx- neg sputum cx from trach- Klebsiella brower sensitive CXR- ? left lung pneumonia as per report + stool c.diff. repeat stool c.diff- negative cxr- pneumonia Plan- empiric broad spectrum abx coverage with vanco and zosyn day #10 the zosyn will treat the klebsiella pneumonia pneumonia . can d/c vanco today. continue with zosyn for 4 more days. monitor aspiration precautions. continue with flagyl via OG tube for + c.diff. day #10. advise 4 more days of oral flagyl.
[2016-11-29 13:04] LABS: BASO # 0.1 K/uL (0.0-0.2); EOS # 0.1 K/uL (0.0-0.7); EOS % 1.5 % (0.0-4.0); HEMATOCRIT 26.1 % (35.0-51.0); LYMPH % 20.2 % (20.0-40.0); MEAN CELL VOLUME 90.6 fl (80.0-94.0); MEAN CORPUSCULAR HGB CONC 33.1 g/dL (33.0-37.0); MEAN PLATELET VOLUME 8.6 fl (7.2-11.7); MONO # 0.6 K/uL (0.0-0.8); MONO % 5.9 % (0.0-10.0); NEUT # 7.1 K/uL (1.8-7.0); NEUT % 71.4 % (50.0-75.0); RED CELL DISTRIBUTION WIDTH 16.7 % (11.5-14.5); WHITE BLOOD COUNT 9.9 K/uL (4.8-10.8)
[2016-11-29 13:10] LABS: BLOOD UREA NITROGEN 18 mg/dl (9-20); CALCIUM 7.6 mg/dL (8.4-10.2); CARBON DIOXIDE 20 mmol/L (22-30); CHLORIDE 121 mmol/L (98-107); GFR AFRICAN-AMERICAN > 60; GLUCOSE,RANDOM 118 mg/dL (75-110); POTASSIUM 2.6 MMOL/L (3.6-5.0); SODIUM 152 mmol/l (132-148)
--- NOTE | 2016-11-29 15:07 | CP.PCM.PN ---
Subjective - Date & Time of Evaluation Date of Evaluation: 11/29/16 Time of Evaluation: 10:00 - Subjective Subjective: F/U Respiratory Failure. Pt awake, able to answer simple questions, follows simple commands,no acute respiratory distress. Objective - Vital Signs/Intake and Output Vital Signs (last 24 hours): Temp Pulse Resp BP Pulse Ox 99.3 F 81 20 154/79 H 97 11/29/16 12:00 11/29/16 12:00 11/29/16 12:00 11/29/16 12:00 11/29/16 12:00 Intake and Output: 11/29/16 11/29/16 06:59 18:59 Intake Total 980 Output Total 900 Balance 80 - Medications Medications: Current Medications Acetaminophen (Tylenol 650 Mg Supp) 650 mg [place] Q4 PRN PRN Reason: Fever >100.4 F Acetaminophen (Tylenol 650mg/20.3ml Solution Ud) 650 mg PO Q4 PRN PRN Reason: Temperature Last Admin: 11/23/16 23:50 Dose: 650 mg Acetylcysteine (Acetylcysteine 20%) 2 ml INH RBID [facility] Last Admin: 11/29/16 07:29 Dose: 2 ml Albuterol/Ipratropium (Duoneb 3 Mg/0.5 Mg (3 Ml) Ud) 3 ml INH RQID [facility] Last Admin: 11/29/16 13:47 Dose: 3 ml Albuterol/Ipratropium (Duoneb 3 Mg/0.5 Mg (3 Ml) Ud) 3 ml INH RQ6 PRN PRN Reason: Shortness of Breath Piperacillin Sod/Tazobactam (Sod 3.375 gm/ Sodium Chloride) 100 mls @ 100 mls/ hr IVPB Q8 [facility] Last Admin: 11/29/16 10:29 Dose: 100 mls/hr Dextrose/Sodium Chloride (Dextrose 5%/0.45% Ns 1000 Ml) 1,000 mls @ 80 mls/hr IV .[id number] [facility] Stop: 11/29/16 15:40 Last Admin: 11/28/16 16:26 Dose: 80 mls/hr Vancomycin HCl 750 mg/ Sodium (Chloride) 250 mls @ 250 mls/hr IVPB Q12H [facility] Insulin Human Regular (Humulin R) 0 units SC ACCU-CHECK [facility] PRN Reason: Protocol Last Admin: 11/29/16 13:49 Dose: Not Given Magnesium Oxide (Mag-Ox) 400 mg PO BID [facility] Last Admin: 11/29/16 10:30 Dose: 400 mg Metronidazole (Flagyl) 500 mg PO Q8 [facility] Last Admin: 11/29/16 10:30 Dose: 500 mg Pantoprazole Sodium (Protonix Inj) 40 mg IVP DAILY [facility] Last Admin: 11/29/16 10:30 Dose: 40 mg Sucralfate (Carafate Oral Susp) 1 gm PO QID [facility] Last Admin: 11/29/16 13:17 Dose: Not Given - Labs Labs: 11/29/16 12:56 11/29/16 12:56 PT 12.3 Seconds (9.8-13.1) 11/21/16 13:30 INR 1.2 (0.9-1.2) 11/21/16 13:30 APTT 33.7 Seconds (25.6-37.1) 11/21/16 13:30 - Constitutional Appears: Chronically Ill - Eye Exam Eye Exam: PERRL - ENT Exam ENT Exam: Normal Exam - Neck Exam Neck Exam: Normal Inspection - Respiratory Exam Respiratory Exam: Decreased Breath Sounds (at bases), Rhonchi (few at bases) - Cardiovascular Exam Cardiovascular Exam: REGULAR RHYTHM - GI/Abdominal Exam GI & Abdominal Exam: Soft, Normal Bowel Sounds - Extremities Exam Additional comments: Unstageable ulcers: RLE, R hip. S/P amputation R 3rd toe. - Back Exam Additional comments: R Sacral ulcer, unstageable. - Neurological Exam Neurological Exam: Awake Additional comments: Follows simple commands, generalized weakness. - Psychiatric Exam Additional comments: Calm - Skin Skin Exam: Warm Assessment and Plan (1) Acute hypercapnic respiratory failure Status: Acute (2) Klebsiella pneumonia Status: Acute (3) Dehydration Status: Acute (4) Septic shock Status: Acute (5) Hyperkalemia Status: Acute (6) [place] (acute kidney injury) Status: Acute (7) Type 2 diabetes mellitus with hyperglycemia Status: Chronic (8) HTN (hypertension) Status: Chronic (9) C. difficile colitis Status: Acute - Assessment and Plan (Free Text) Plan: F/U Zosyn, Flagyl, Vanco according to level.
[2016-11-29] MEDS: Potassium CL 10mEq/100ml 100 ML IVPB SCH ×2 (21:23→22:46)
--- NOTE | 2016-11-29 21:31 | CARD ---
APPROVED REPORT EKG Measurement Heart [id number] <Conclusion> Sinus rhythm with premature atrial complexes with aberrant conduction Nonspecific ST abnormality Abnormal ECG
[2016-11-30] MEDS: Potassium CL 10mEq/100ml 100 ML IVPB SCH ×2 (00:28→00:34)
[2016-11-30] MEDS: Piperacillin/Tazobact 3.375 GM in Sodium Chloride 0.9% 100 ML IVPB SCH ×2 (01:24→10:04)
[2016-11-30] MEDS ORDERED: Potassium Ch 20mEq in D5-1/2NS 1,000 ML IV SCH (01:45)
[2016-11-30] MEDS: Insulin Regular 100 units/ml SC SCH ×4 (07:01→22:32)
[2016-11-30] MEDS: Acetylcysteine 20% Inhal Soln (4ml) INH SCH ×2 (08:15→19:20)
[2016-11-30] MEDS: Albuterol-Ipratrop 3 mg / 0.5 (3 ml) UD INH SCH ×4 (08:15→19:20)
[2016-11-30] MEDS: Sucralfate 1 gm/10 ml Oral Susp UD PO SCH ×4 (09:59→22:31)
[2016-11-30] MEDS: Magnesium Oxide 400 mg Tab UD PO SCH ×2 (10:05→18:00)
--- NOTE | 2016-11-30 10:36 | CP.PCM.CON ---
History of Present Illness - History of Present Illness History of Present Illness: 71 y/o M, [facility] at [facility]B associate to hypoxia on DOA with no relief. Cardiology Consult called for run of V Tach -- 25 beats Pt remained awake with no Sx EKG: NSR with occasional APC's Pt does not respond to questioning PMH: HTN, A Fib, Dyslipidemia, DMII, DM Neuropathy, Renal Insufficiency, PVD, anemia, Dementia, Osteomyelitis Avascular Necrosis R Hip, Hx falls, Alcohol abuse. Past Patient History - Past Medical History & Family History Past Medical History?: Yes - Past Social History Smoking Status: Light Smoker < 10 Cigarettes Daily Chewing Tobacco Use: No Cigar Use: No Alcohol: Social Drugs: Denies Home Situation {Lives}: Detention - CARDIAC Hx Cardiac Disorders: Yes Hx Atrial Fibrillation: Yes Hx Hypercholesterolemia: Yes Hx Hypertension: Yes Hx Peripheral Vascular Disease: Yes - PULMONARY Hx Respiratory Disorders: No - NEUROLOGICAL Hx Neurological Disorder: Yes Hx Dementia: Yes - HEENT Hx HEENT Problems: No - RENAL Hx Chronic Kidney Disease: Yes - ENDOCRINE/METABOLIC Hx Endocrine Disorders: Yes Hx Diabetes Mellitus Type 2: Yes - HEMATOLOGICAL/ONCOLOGICAL Hx Blood Disorders: Yes Hx Anemia: Yes - INTEGUMENTARY Hx Dermatological Problems: No - MUSCULOSKELETAL/RHEUMATOLOGICAL Hx Musculoskeletal Disorders: Yes (R hip pain) Hx Falls: Yes Hx Osteomyelitis: Yes (R foot) Hx Unsteady Gait: Yes - GASTROINTESTINAL Hx Gastrointestinal Disorders: No - GENITOURINARY/GYNECOLOGICAL Hx Genitourinary Disorders: Yes Hx Urinary Tract Infection: Yes - PSYCHIATRIC Hx Psychophysiologic Disorder: No Hx Substance Use: No - SURGICAL HISTORY Hx Surgeries: No - ANESTHESIA Hx Anesthesia: No Hx Anesthesia Reactions: No Hx Malignant Hyperthermia: No Meds Allergies/Adverse Reactions: Allergies Allergy/AdvReac Type Severity Reaction Status Date / Time No Known Allergies Allergy Verified 10/05/16 16:18 - Medications Medications: Current Medications Acetaminophen (Tylenol 650 Mg Supp) 650 mg [place] Q4 PRN PRN Reason: Fever >100.4 F Acetaminophen (Tylenol 650mg/20.3ml Solution Ud) 650 mg PO Q4 PRN PRN Reason: Temperature Last Admin: 11/23/16 23:50 Dose: 650 mg Acetylcysteine (Acetylcysteine 20%) 2 ml INH RBID [facility] Last Admin: 11/30/16 08:15 Dose: 2 ml Albuterol/Ipratropium (Duoneb 3 Mg/0.5 Mg (3 Ml) Ud) 3 ml INH RQID [facility] Last Admin: 11/30/16 08:15 Dose: 3 ml Albuterol/Ipratropium (Duoneb 3 Mg/0.5 Mg (3 Ml) Ud) 3 ml INH RQ6 PRN PRN Reason: Shortness of Breath Piperacillin Sod/Tazobactam (Sod 3.375 gm/ Sodium Chloride) 100 mls @ 100 mls/ hr IVPB Q8 [facility] Last Admin: 11/30/16 10:04 Dose: 100 mls/hr Potassium Chloride/Dextrose/Sod Cl (Potassium Chl 20 Meq In D5-1/2ns) 1,000 mls @ 80 mls/hr IV .[id number] [facility] Stop: 12/01/16 01:43 Last Admin: 11/30/16 05:14 Dose: 80 mls/hr Insulin Human Regular (Humulin R) 0 units SC ACCU-CHECK [facility] PRN Reason: Protocol Last Admin: 11/30/16 07:01 Dose: Not Given Magnesium Oxide (Mag-Ox) 400 mg PO BID [facility] Last Admin: 11/30/16 10:05 Dose: 400 mg Metronidazole (Flagyl) 500 mg PO Q8 [facility] Last Admin: 11/30/16 10:04 Dose: 500 mg Pantoprazole Sodium (Protonix Inj) 40 mg IVP DAILY [facility] Last Admin: 11/30/16 10:05 Dose: 40 mg Sucralfate (Carafate Oral Susp) 1 gm PO QID [facility] Last Admin: 11/30/16 09:59 Dose: Not Given Physical Exam - Eye Exam Eye Exam: Normal appearance - ENT Exam ENT Exam: Normal Exam - Neck Exam Neck exam: Positive for: Normal Inspection - Respiratory Exam Respiratory Exam: NORMAL BREATHING PATTERN - Cardiovascular Exam Cardiovascular Exam: REGULAR RHYTHM Results - Vital Signs Recent Vital Signs: Last Vital Signs Temp 98.0 F 11/30/16 07:49 Pulse 98 H 11/30/16 07:49 Resp 20 11/30/16 07:49 BP 144/77 11/30/16 07:49 Pulse Ox 98 11/30/16 07:49 - Labs Result Diagrams: 11/29/16 12:56 11/29/16 12:56 Labs: Laboratory Results - last 24 hr 11/29/16 11/29/16 11/29/16 11:01 12:56 12:56 WBC 9.9 RBC 2.88 L Hgb 8.6 L Hct 26.1 L MCV 90.6 MCH 30.0 MCHC 33.1 RDW 16.7 H Plt Count 193 MPV 8.6 Neut % (Auto) 71.4 Lymph % (Auto) 20.2 [place] % (Auto) 5.9 Eos % (Auto) 1.5 Baso % (Auto) 1.0 Neut # 7.1 H Lymph # 2.0 [place] # 0.6 Eos # 0.1 Baso # 0.1 Sodium 152 H Potassium 2.6 L Chloride 121 H Carbon Dioxide 20 L Anion Gap 14 BUN 18 Creatinine 1.1 Est GFR ( Amer) > 60 Est GFR (Non-Af Amer) > 60 POC Glucose (mg/dL) 126 H Random Glucose 118 H Calcium 7.6 L Random Vancomycin 11/29/16 11/29/16 12:56 16:29 WBC RBC Hgb Hct MCV MCH MCHC RDW Plt Count MPV Neut % (Auto) Lymph % (Auto) [place] % (Auto) Eos % (Auto) Baso % (Auto) Neut # Lymph # [place] # Eos # Baso # Sodium Potassium Chloride Carbon Dioxide Anion Gap BUN Creatinine Est GFR ( Amer) Est GFR (Non-Af Amer) POC Glucose (mg/dL) 99 Random Glucose Calcium Random Vancomycin 14.2 Assessment & Plan (1) Ventricular tachyarrhythmia Assessment and Plan: The pt's Tachyarrhythmia is probably related to low potassium will continue to observe Status: Acute (2) Hypokalemia Status: Acute (3) HTN (hypertension) Status: Chronic Priority: Medium (4) Type 2 diabetes mellitus with hyperglycemia Status: Chronic Priority: High (5) Weakness Status: Chronic Priority: High (6) Avascular necrosis of bone of right hip Status: Ruled-out
[2016-11-30 13:01] LABS: BLOOD UREA NITROGEN 18 mg/dl (9-20); CALCIUM 7.4 mg/dL (8.4-10.2); CARBON DIOXIDE 21 mmol/L (22-30); CHLORIDE 123 mmol/L (98-107); GFR AFRICAN-AMERICAN > 60; GLUCOSE,RANDOM 143 mg/dL (75-110); POTASSIUM 3.1 MMOL/L (3.6-5.0); SODIUM 151 mmol/l (132-148)
[2016-11-30] MEDS: Potassium Ch 20mEq in D5-1/2NS 1,000 ML IV SCH (15:00)
--- NOTE | 2016-11-30 16:25 | CP.PCM.PN ---
Subjective - Date & Time of Evaluation Date of Evaluation: 11/30/16 Time of Evaluation: 11:10 - Subjective Subjective: F/U respiratory Failure. Awake , no AD Objective - Vital Signs/Intake and Output Vital Signs (last 24 hours): Temp Pulse Resp BP Pulse Ox 98.1 F 86 20 156/84 H 100 11/30/16 16:11 11/30/16 16:11 11/30/16 16:11 11/30/16 16:11 11/30/16 16:11 Intake and Output: 11/30/16 11/30/16 06:59 18:59 Intake Total 710 Output Total 675 Balance 35 - Medications Medications: Current Medications Acetaminophen (Tylenol 650 Mg Supp) 650 mg [place] Q4 PRN PRN Reason: Fever >100.4 F Acetaminophen (Tylenol 650mg/20.3ml Solution Ud) 650 mg PO Q4 PRN PRN Reason: Temperature Last Admin: 11/23/16 23:50 Dose: 650 mg Acetylcysteine (Acetylcysteine 20%) 2 ml INH RBID [facility] Last Admin: 11/30/16 08:15 Dose: 2 ml Albuterol/Ipratropium (Duoneb 3 Mg/0.5 Mg (3 Ml) Ud) 3 ml INH RQID [facility] Last Admin: 11/30/16 15:35 Dose: 3 ml Albuterol/Ipratropium (Duoneb 3 Mg/0.5 Mg (3 Ml) Ud) 3 ml INH RQ6 PRN PRN Reason: Shortness of Breath Potassium Chloride/Dextrose/Sod Cl (Potassium Chl 20 Meq In D5-1/2ns) 1,000 mls @ 90 mls/hr IV .[id number] [facility] Stop: 12/01/16 14:52 Insulin Human Regular (Humulin R) 0 units SC ACCU-CHECK [facility] PRN Reason: Protocol Last Admin: 11/30/16 13:00 Dose: Not Given Magnesium Oxide (Mag-Ox) 400 mg PO BID [facility] Last Admin: 11/30/16 10:05 Dose: 400 mg Metronidazole (Flagyl) 500 mg PO Q8 [facility] Last Admin: 11/30/16 10:04 Dose: 500 mg Pantoprazole Sodium (Protonix Inj) 40 mg IVP DAILY [facility] Last Admin: 11/30/16 10:05 Dose: 40 mg Sucralfate (Carafate Oral Susp) 1 gm PO QID [facility] Last Admin: 11/30/16 12:59 Dose: Not Given - Labs Labs: 11/29/16 12:56 11/30/16 12:44 PT 12.3 Seconds (9.8-13.1) 11/21/16 13:30 INR 1.2 (0.9-1.2) 11/21/16 13:30 APTT 33.7 Seconds (25.6-37.1) 11/21/16 13:30 - Constitutional Appears: Chronically Ill - Head Exam Head Exam: NORMAL INSPECTION - Eye Exam Eye Exam: PERRL - ENT Exam ENT Exam: Normal Exam - Neck Exam Neck Exam: Normal Inspection - Respiratory Exam Respiratory Exam: Decreased Breath Sounds (at bases R>L), Rhonchi (few at bases) - Cardiovascular Exam Cardiovascular Exam: REGULAR RHYTHM - GI/Abdominal Exam GI & Abdominal Exam: Soft, Normal Bowel Sounds - Extremities Exam Additional comments: Unstageable ulcer RLE, R hip. 2 + pitting edema upper extremities. S/P amputation R 3rd toe. - Back Exam Additional comments: R sacral ulcer, unstageable - Neurological Exam Neurological Exam: Awake Additional comments: Follows simple commands, generalized weakness. - Skin Skin Exam: Warm Assessment and Plan (1) Acute hypercapnic respiratory failure Status: Acute (2) Klebsiella pneumonia Status: Acute (3) Dehydration Status: Acute (4) Septic shock Status: Acute (5) Hyperkalemia Status: Acute (6) GE[place] (acute kidney injury) Status: Acute (7) Type 2 diabetes mellitus with hyperglycemia Status: Chronic (8) HTN (hypertension) Status: Chronic (9) C. difficile colitis Status: Acute - Assessment and Plan (Free Text) Plan: Continue ventilatory support , Atb , respiratory treatment
[2016-12-01] MEDS: Potassium Ch 20mEq in D5-1/2NS 1,000 ML IV SCH ×3 (03:00→16:53)
[2016-12-01] MEDS: Insulin Regular 100 units/ml SC SCH ×4 (06:48→22:17)
[2016-12-01] MEDS: Acetylcysteine 20% Inhal Soln (4ml) INH SCH ×2 (07:45→19:25)
[2016-12-01] MEDS: Albuterol-Ipratrop 3 mg / 0.5 (3 ml) UD INH SCH ×4 (07:45→19:26)
[2016-12-01 09:29] LABS: BLOOD UREA NITROGEN 18 mg/dl (9-20); CALCIUM 7.3 mg/dL (8.4-10.2); CARBON DIOXIDE 20 mmol/L (22-30); CHLORIDE 122 mmol/L (98-107); GFR AFRICAN-AMERICAN > 60; GLUCOSE,RANDOM 117 mg/dL (75-110); POTASSIUM 3.2 MMOL/L (3.6-5.0); SODIUM 150 mmol/l (132-148)
[2016-12-01] MEDS: Sucralfate 1 gm/10 ml Oral Susp UD PO SCH ×4 (09:40→21:33)
[2016-12-01] MEDS: Magnesium Oxide 400 mg Tab UD PO SCH ×2 (09:40→16:56)
[2016-12-01] MEDS: Piperacillin/Tazobact 3.375 GM in Sodium Chloride 0.9% 100 ML IVPB SCH ×2 (11:00→16:56)
--- NOTE | 2016-12-01 15:04 | CP.PCM.PN ---
Subjective - Date & Time of Evaluation Date of Evaluation: 12/01/16 Time of Evaluation: 09:00 - Subjective Subjective: no further episodes of V tach /VPC's Objective - Vital Signs/Intake and Output Vital Signs (last 24 hours): Temp Pulse Resp BP Pulse Ox 98.1 F 97 H 20 127/62 100 12/01/16 12:00 12/01/16 12:00 12/01/16 12:00 12/01/16 12:00 12/01/16 12:00 Intake and Output: 12/01/16 12/01/16 06:59 18:59 Intake Total 244 Balance 244 - Medications Medications: Current Medications Acetaminophen (Tylenol 650 Mg Supp) 650 mg [place] Q4 PRN PRN Reason: Fever >100.4 F Acetaminophen (Tylenol 650mg/20.3ml Solution Ud) 650 mg PO Q4 PRN PRN Reason: Temperature Last Admin: 11/23/16 23:50 Dose: 650 mg Acetylcysteine (Acetylcysteine 20%) 2 ml INH RBID [facility] Last Admin: 12/01/16 07:45 Dose: 2 ml Albuterol/Ipratropium (Duoneb 3 Mg/0.5 Mg (3 Ml) Ud) 3 ml INH RQID [facility] Last Admin: 12/01/16 12:14 Dose: 3 ml Albuterol/Ipratropium (Duoneb 3 Mg/0.5 Mg (3 Ml) Ud) 3 ml INH RQ6 PRN PRN Reason: Shortness of Breath Piperacillin Sod/Tazobactam (Sod 3.375 gm/ Sodium Chloride) 100 mls @ 100 mls/ hr IVPB Q8 [facility] Stop: 12/05/16 10:30 Last Admin: 12/01/16 11:00 Dose: 100 mls/hr Insulin Human Regular (Humulin R) 0 units SC ACCU-CHECK [facility] PRN Reason: Protocol Last Admin: 12/01/16 13:07 Dose: Not Given Magnesium Oxide (Mag-Ox) 400 mg PO BID [facility] Last Admin: 12/01/16 09:40 Dose: 400 mg Metronidazole (Flagyl) 500 mg PO Q8 [facility] Last Admin: 12/01/16 09:39 Dose: 500 mg Pantoprazole Sodium (Protonix Inj) 40 mg IVP DAILY [facility] Last Admin: 12/01/16 09:40 Dose: 40 mg Sucralfate (Carafate Oral Susp) 1 gm PO QID [facility] Last Admin: 12/01/16 13:08 Dose: Not Given - Labs Labs: 11/29/16 12:56 12/01/16 08:50 PT 12.3 Seconds (9.8-13.1) 11/21/16 13:30 INR 1.2 (0.9-1.2) 11/21/16 13:30 APTT 33.7 Seconds (25.6-37.1) 11/21/16 13:30 Assessment and Plan (1) Ventricular tachyarrhythmia Status: Acute (2) Hypokalemia Status: Acute (3) HTN (hypertension) Status: Chronic (4) Type 2 diabetes mellitus with hyperglycemia Status: Chronic (5) Weakness Status: Chronic
--- NOTE | 2016-12-01 15:49 | CP.PCM.PN ---
Subjective - Date & Time of Evaluation Date of Evaluation: 12/01/16 Time of Evaluation: 09:30 - Subjective Subjective: F/U Respiratory Failure. Lethargic, arousable ,on BIPAP Objective - Vital Signs/Intake and Output Vital Signs (last 24 hours): Temp Pulse Resp BP Pulse Ox 98.1 F 97 H 20 127/62 100 12/01/16 12:00 12/01/16 12:00 12/01/16 12:00 12/01/16 12:00 12/01/16 12:00 Intake and Output: 12/01/16 12/01/16 06:59 18:59 Intake Total 244 Balance 244 - Medications Medications: Current Medications Acetaminophen (Tylenol 650 Mg Supp) 650 mg [place] Q4 PRN PRN Reason: Fever >100.4 F Acetaminophen (Tylenol 650mg/20.3ml Solution Ud) 650 mg PO Q4 PRN PRN Reason: Temperature Last Admin: 11/23/16 23:50 Dose: 650 mg Acetylcysteine (Acetylcysteine 20%) 2 ml INH RBID [facility] Last Admin: 12/01/16 07:45 Dose: 2 ml Albuterol/Ipratropium (Duoneb 3 Mg/0.5 Mg (3 Ml) Ud) 3 ml INH RQID [facility] Last Admin: 12/01/16 15:29 Dose: 3 ml Albuterol/Ipratropium (Duoneb 3 Mg/0.5 Mg (3 Ml) Ud) 3 ml INH RQ6 PRN PRN Reason: Shortness of Breath Piperacillin Sod/Tazobactam (Sod 3.375 gm/ Sodium Chloride) 100 mls @ 100 mls/ hr IVPB Q8 [facility] Stop: 12/05/16 10:30 Last Admin: 12/01/16 11:00 Dose: 100 mls/hr Potassium Chloride/Dextrose/Sod Cl (Potassium Chl 20 Meq In D5-1/2ns) 1,000 mls @ 80 mls/hr IV .[id number] [facility] Stop: 12/02/16 15:20 Insulin Human Regular (Humulin R) 0 units SC ACCU-CHECK [facility] PRN Reason: Protocol Last Admin: 12/01/16 13:07 Dose: Not Given Magnesium Oxide (Mag-Ox) 400 mg PO BID [facility] Last Admin: 12/01/16 09:40 Dose: 400 mg Metronidazole (Flagyl) 500 mg PO Q8 [facility] Last Admin: 12/01/16 09:39 Dose: 500 mg Pantoprazole Sodium (Protonix Inj) 40 mg IVP DAILY [facility] Last Admin: 12/01/16 09:40 Dose: 40 mg Sucralfate (Carafate Oral Susp) 1 gm PO QID [facility] Last Admin: 12/01/16 13:08 Dose: Not Given - Labs Labs: 11/29/16 12:56 12/01/16 08:50 PT 12.3 Seconds (9.8-13.1) 11/21/16 13:30 INR 1.2 (0.9-1.2) 11/21/16 13:30 APTT 33.7 Seconds (25.6-37.1) 11/21/16 13:30 - Constitutional Appears: Chronically Ill - Head Exam Head Exam: NORMAL INSPECTION - Eye Exam Eye Exam: PERRL - ENT Exam Additional comments: BIPAP - Neck Exam Neck Exam: Normal Inspection - Respiratory Exam Respiratory Exam: Decreased Breath Sounds (at bases), Rhonchi (b/l) - Cardiovascular Exam Cardiovascular Exam: REGULAR RHYTHM - GI/Abdominal Exam GI & Abdominal Exam: Soft, Normal Bowel Sounds - Extremities Exam Additional comments: Unstageable ulcers: RLE, R hip, 2+ pitting edema upper extremities. S/P amputation R 3rd toe. - Back Exam Additional comments: R sacral ulcer, unstageable. - Neurological Exam Additional comments: Generalized weakness, follows simple commands. - Psychiatric Exam Additional comments: Calm. - Skin Skin Exam: Normal Color, Warm Assessment and Plan (1) Acute hypercapnic respiratory failure Status: Acute (2) Klebsiella pneumonia Status: Acute (3) Dehydration Status: Acute (4) Septic shock Status: Acute (5) Hyperkalemia Status: Acute (6) GEORGINA (acute kidney injury) Status: Acute (7) Type 2 diabetes mellitus with hyperglycemia Status: Chronic (8) HTN (hypertension) Status: Chronic (9) C. difficile colitis Status: Acute - Assessment and Plan (Free Text) Plan: Had episode of V Tach yesterday , on RSR, Cardiac consult appreciated, continue rest of treatment, f/u CT Chest
[2016-12-02] MEDS: Piperacillin/Tazobact 3.375 GM in Sodium Chloride 0.9% 100 ML IVPB SCH ×3 (01:43→17:38)
[2016-12-02 05:23] LABS: ABG ALLEN TEST YES; ABG MECHANICAL RATE 12; ARTERIAL BLOOD GAS HCO3 23.2 mmol/L (21-28); ARTERIAL BLOOD GAS O2 CAPACITY 15.2 mL/dL (16-24); ARTERIAL BLOOD GAS O2 CONTENT 12.9 ML/dL (15-23); ARTERIAL BLOOD GAS PH 7.46 (7.35-7.45); ARTERIAL BLOOD GAS PO2 44 mm/Hg (80-100); ARTERIAL BLOOD HGB O2 SAT 81.9 % (95.0-98.0); CARBOXYHEMOGLOBIN 1.4 % (0.5-1.5); HHB 14.7 % (0.0-5.0)
[2016-12-02] MEDS: Acetylcysteine 20% Inhal Soln (4ml) INH SCH ×2 (07:38→19:32)
[2016-12-02] MEDS: Albuterol-Ipratrop 3 mg / 0.5 (3 ml) UD INH SCH ×4 (07:38→19:32)
[2016-12-02] MEDS: Sucralfate 1 gm/10 ml Oral Susp UD PO SCH ×4 (09:12→22:24)
[2016-12-02] MEDS: Insulin Regular 100 units/ml SC SCH ×4 (09:13→22:22)
[2016-12-02] MEDS: Potassium Ch 20mEq in D5-1/2NS 1,000 ML IV SCH (09:17)
[2016-12-02] MEDS: Magnesium Oxide 400 mg Tab UD PO SCH ×2 (09:20→17:38)
[2016-12-02 09:21] LABS: HEMATOCRIT 29.3 % (35.0-51.0); MEAN CELL VOLUME 91.9 fl (80.0-94.0); MEAN CORPUSCULAR HEMOGLOBIN 29.8 pg (27.0-31.0); MEAN CORPUSCULAR HGB CONC 32.5 g/dL (33.0-37.0); RED CELL DISTRIBUTION WIDTH 17.6 % (11.5-14.5)
[2016-12-02 09:41] LABS: BLOOD UREA NITROGEN 19 mg/dl (9-20); CALCIUM 7.9 mg/dL (8.4-10.2); CARBON DIOXIDE 19 mmol/L (22-30); CHLORIDE 120 mmol/L (98-107); GFR AFRICAN-AMERICAN > 60; GLUCOSE,RANDOM 137 mg/dL (75-110); POTASSIUM 3.8 MMOL/L (3.6-5.0); SODIUM 148 mmol/l (132-148)
[2016-12-02 11:14] LABS: ABG ALLEN TEST YES; ARTERIAL BLOOD GAS MODE BiPAP; ARTERIAL BLOOD GAS O2 CONTENT 13.1 ML/dL (15-23); ARTERIAL BLOOD GAS PH 7.44 (7.35-7.45); ARTERIAL BLOOD GAS PO2 206 mm/Hg (80-100); ARTERIAL BLOOD HGB O2 SAT 97.7 % (95.0-98.0); CARBOXYHEMOGLOBIN 1.4 % (0.5-1.5); HHB -0.7 % (0.0-5.0); METHEMOGLOBIN 1.6 % (0.0-3.0)
[2016-12-02] MEDS ORDERED: Potassium Ch 20mEq in D5-1/2NS 1,000 ML IV SCH (12:05)
--- NOTE | 2016-12-02 14:43 | CT ---
PROCEDURE: CT chest dated 12/02/2016 HISTORY: Respiratory Failure , Pneumonia COMPARISON: Comparison made with chest radiograph and CT scan chest dated 11/24/2016 and 10/13/2016 respectively. TECHNIQUE: Contiguous axial images were obtained through the chest without intravenous contrast enhancement. Sagittal and coronal reconstructions were performed. Radiation dose (DLP): 673.77 mGy-cm. This CT exam was performed using one or more of the following dose reduction techniques: Automated exposure control, adjustment of the mA and/or kV according to patient size, and/or use of iterative reconstruction technique. FINDINGS: LUNGS: Small to medium size right-sided effusion. . Right lower lobe consolidation with air bronchograms may represent atelectasis however superimposed infiltrate not excluded. Distal right lower lobe segmental bronchi on the appear partially collapsed. Rule out mucous plugging nodular infiltrate changes seen throughout the right upper lobe. Small left-sided effusion and mild left basilar atelectasis. Nodular infiltrate changes seen throughout the left lower and upper lobes. MEDIASTINUM: Heart size is within range of normal. No significant pericardial effusion. Ascending thoracic aorta measures approximately 3.6 cm and descending thoracic aorta measures approximately 2.5 cm. Pulmonary trunk measures approximately 2.45 cm. Multiple mediastinal lymph nodes some of which are prominent the largest measuring 17.5 mm . Moderately large hiatal hernia with wall thickening of the distal esophagus that could be due to protrusion of gastric mucosa. The possibility of esophagitis not excluded. Note also that there does appear to be radiopaque questionable contrast within the dependent portion of the lumen of the at hiatal hernia appear clinical correlation recommended. Trachea and proximal mainstem bronchi patent. No endoluminal lesions seen. PLEURA: As above. No evidence of pneumothorax. BONES: Minor multilevel degenerative spondylosis of the thoracic spine. There are no acute compression fractures no retropulsed fragments. No suspicious lytic or blastic lesions are identified. UPPER ABDOMEN: Grossly unremarkable. OTHER FINDINGS: None. IMPRESSION: Small to medium size right-sided effusion. . Right lower lobe consolidation with air bronchograms may represent atelectasis however superimposed infiltrate not excluded. Minor left basilar atelectasis. . Patchy early nodular infiltrate changes seen in the left lower lobe Multiple mediastinal lymph nodes several of which are enlarged.
--- NOTE | 2016-12-02 17:47 | CP.PCM.PN ---
Subjective - Date & Time of Evaluation Date of Evaluation: 12/02/16 Time of Evaluation: 10:05 - Subjective Subjective: F/U Respiratory Failure. Arousable to tactil stimuli , on BIPAP Objective - Vital Signs/Intake and Output Vital Signs (last 24 hours): Temp Pulse Resp BP Pulse Ox 98.8 F 106 H 22 136/70 99 12/02/16 15:59 12/02/16 15:59 12/02/16 15:59 12/02/16 15:59 12/02/16 15:59 Intake and Output: 12/02/16 12/02/16 06:59 18:59 Intake Total 1800 Output Total 600 Balance 1200 - Medications Medications: Current Medications Acetaminophen (Tylenol 650 Mg Supp) 650 mg [place] Q4 PRN PRN Reason: Fever >100.4 F Acetaminophen (Tylenol 650mg/20.3ml Solution Ud) 650 mg PO Q4 PRN PRN Reason: Temperature Last Admin: 11/23/16 23:50 Dose: 650 mg Acetylcysteine (Acetylcysteine 20%) 2 ml INH RBID [facility] Last Admin: 12/02/16 07:38 Dose: 2 ml Albuterol/Ipratropium (Duoneb 3 Mg/0.5 Mg (3 Ml) Ud) 3 ml INH RQID [facility] Last Admin: 12/02/16 16:00 Dose: 3 ml Albuterol/Ipratropium (Duoneb 3 Mg/0.5 Mg (3 Ml) Ud) 3 ml INH RQ6 PRN PRN Reason: Shortness of Breath Last Admin: 12/02/16 00:18 Dose: 3 ml Piperacillin Sod/Tazobactam (Sod 3.375 gm/ Sodium Chloride) 100 mls @ 100 mls/ hr IVPB Q8 [facility] Stop: 12/05/16 10:30 Last Admin: 12/02/16 17:38 Dose: 100 mls/hr Insulin Human Regular (Humulin R) 0 units SC ACCU-CHECK [facility] PRN Reason: Protocol Last Admin: 12/02/16 17:39 Dose: Not Given Magnesium Oxide (Mag-Ox) 400 mg PO BID [facility] Last Admin: 12/02/16 17:38 Dose: 400 mg Metronidazole (Flagyl) 500 mg PO Q8 [facility] Last Admin: 12/02/16 17:38 Dose: 500 mg Pantoprazole Sodium (Protonix Inj) 40 mg IVP DAILY [facility] Last Admin: 12/02/16 09:21 Dose: 40 mg Sucralfate (Carafate Oral Susp) 1 gm PO QID [facility] Last Admin: 12/02/16 17:39 Dose: Not Given - Labs Labs: 12/02/16 08:50 12/02/16 08:50 PT 12.3 Seconds (9.8-13.1) 11/21/16 13:30 INR 1.2 (0.9-1.2) 11/21/16 13:30 APTT 33.7 Seconds (25.6-37.1) 11/21/16 13:30 - Constitutional Appears: Chronically Ill - Head Exam Head Exam: NORMAL INSPECTION - Eye Exam Eye Exam: PERRL - ENT Exam ENT Exam: Normal Exam - Neck Exam Neck Exam: Normal Inspection - Respiratory Exam Respiratory Exam: Rhonchi (b/l) - Cardiovascular Exam Cardiovascular Exam: REGULAR RHYTHM - GI/Abdominal Exam GI & Abdominal Exam: Soft, Normal Bowel Sounds - Extremities Exam Additional comments: Unstageable ulcers: RLE, R hip. 1-2+edema upper extremities L>R , s/p amputation R 3rd toe. - Back Exam Additional comments: R sacral ulcer, unstageable. - Neurological Exam Neurological Exam: Awake Additional comments: arousable to tactil stimuli - Psychiatric Exam Additional comments: intubated - Skin Skin Exam: Warm Assessment and Plan (1) Acute hypercapnic respiratory failure Status: Acute (2) Klebsiella pneumonia Status: Acute (3) Dehydration Status: Acute (4) Septic shock Status: Acute (5) Hyperkalemia Status: Acute (6) GEORGINA (acute kidney injury) Status: Acute (7) Type 2 diabetes mellitus with hyperglycemia Status: Chronic (8) HTN (hypertension) Status: Chronic (9) C. difficile colitis Status: Acute - Assessment and Plan (Free Text) Plan: Continue Zosyn , Respiratory treatment, f/u CT Chest today
[2016-12-03] MEDS: Piperacillin/Tazobact 3.375 GM in Sodium Chloride 0.9% 100 ML IVPB SCH ×3 (01:10→17:12)
[2016-12-03] MEDS: Albuterol-Ipratrop 3 mg / 0.5 (3 ml) UD INH SCH ×4 (07:41→20:01)
[2016-12-03] MEDS: Acetylcysteine 20% Inhal Soln (4ml) INH SCH ×2 (07:41→20:01)
[2016-12-03] MEDS: Insulin Regular 100 units/ml SC SCH ×4 (09:36→22:28)
[2016-12-03] MEDS: Magnesium Oxide 400 mg Tab UD PO SCH ×2 (09:37→17:13)
[2016-12-03] MEDS: Sucralfate 1 gm/10 ml Oral Susp UD PO SCH ×4 (09:37→21:11)
--- NOTE | 2016-12-03 13:29 | CP.PCM.PN ---
Subjective - Date & Time of Evaluation Date of Evaluation: 12/03/16 Time of Evaluation: 11:50 - Subjective Subjective: On NR Mask 100%, lethargic arousable Objective - Vital Signs/Intake and Output Vital Signs (last 24 hours): Temp Pulse Resp BP Pulse Ox 98.4 F 95 H 18 157/99 H 96 12/03/16 12:00 12/03/16 12:00 12/03/16 12:00 12/03/16 12:00 12/03/16 12:00 - Medications Medications: Current Medications Acetaminophen (Tylenol 650 Mg Supp) 650 mg [place] Q4 PRN PRN Reason: Fever >100.4 F Acetaminophen (Tylenol 650mg/20.3ml Solution Ud) 650 mg PO Q4 PRN PRN Reason: Temperature Last Admin: 11/23/16 23:50 Dose: 650 mg Acetylcysteine (Acetylcysteine 20%) 2 ml INH RBID [facility] Last Admin: 12/03/16 07:41 Dose: 2 ml Albuterol/Ipratropium (Duoneb 3 Mg/0.5 Mg (3 Ml) Ud) 3 ml INH RQID [facility] Last Admin: 12/03/16 11:32 Dose: 3 ml Albuterol/Ipratropium (Duoneb 3 Mg/0.5 Mg (3 Ml) Ud) 3 ml INH RQ6 PRN PRN Reason: Shortness of Breath Last Admin: 12/02/16 00:18 Dose: 3 ml Piperacillin Sod/Tazobactam (Sod 3.375 gm/ Sodium Chloride) 100 mls @ 100 mls/ hr IVPB Q8 [facility] Stop: 12/05/16 10:30 Last Admin: 12/03/16 09:36 Dose: 100 mls/hr Insulin Human Regular (Humulin R) 0 units SC ACCU-CHECK [facility] PRN Reason: Protocol Last Admin: 12/03/16 13:01 Dose: Not Given Magnesium Oxide (Mag-Ox) 400 mg PO BID [facility] Last Admin: 12/03/16 09:37 Dose: 400 mg Metronidazole (Flagyl) 500 mg PO Q8 [facility] Last Admin: 12/03/16 09:37 Dose: 500 mg Pantoprazole Sodium (Protonix Inj) 40 mg IVP DAILY [facility] Last Admin: 12/03/16 09:36 Dose: 40 mg Sucralfate (Carafate Oral Susp) 1 gm PO QID [facility] Last Admin: 12/03/16 13:00 Dose: Not Given - Labs Labs: 12/02/16 08:50 12/02/16 08:50 PT 12.3 Seconds (9.8-13.1) 11/21/16 13:30 INR 1.2 (0.9-1.2) 11/21/16 13:30 APTT 33.7 Seconds (25.6-37.1) 11/21/16 13:30 - Constitutional Appears: Chronically Ill - Head Exam Head Exam: NORMAL INSPECTION - Eye Exam Eye Exam: PERRL - ENT Exam Additional comments: NR Mask 100% - Neck Exam Neck Exam: Normal Inspection - Respiratory Exam Respiratory Exam: Decreased Breath Sounds (Bases R>L), Rhonchi - Cardiovascular Exam Cardiovascular Exam: REGULAR RHYTHM - GI/Abdominal Exam GI & Abdominal Exam: Soft, Normal Bowel Sounds - Extremities Exam Additional comments: Edema U/E - Back Exam Additional comments: LS Decubitus - Neurological Exam Additional comments: lethargic - Skin Skin Exam: Warm Assessment and Plan (1) Acute hypercapnic respiratory failure Status: Acute (2) Klebsiella pneumonia Status: Acute (3) Dehydration Status: Acute (4) Septic shock Status: Acute (5) Hyperkalemia Status: Acute (6) GEORGINA (acute kidney injury) Status: Acute (7) Type 2 diabetes mellitus with hyperglycemia Status: Chronic (8) HTN (hypertension) Status: Chronic (9) C. difficile colitis Status: Acute - Assessment and Plan (Free Text) Plan: On NR V Mask 100% ,CT Chest RLL PNA, Atelectasis, effusion, discuss Bronchoscopy with Patient's family , Continue [facility] ICU Time: 38 min.
--- NOTE | 2016-12-03 16:17 | CP.PCM.PN ---
Subjective - Date & Time of Evaluation Date of Evaluation: 12/03/16 Time of Evaluation: 16:15 - Subjective Subjective: ID Note- Pt. seen and examined today. Pt.. awake and responsive. continues to have thick cough but does not expectorate. Objective - Vital Signs/Intake and Output Vital Signs (last 24 hours): Temp Pulse Resp BP Pulse Ox 99 F 109 H 20 151/77 H 100 12/03/16 15:44 12/03/16 15:44 12/03/16 15:44 12/03/16 15:44 12/03/16 15:44 - Medications Medications: Current Medications Acetaminophen (Tylenol 650 Mg Supp) 650 mg [place] Q4 PRN PRN Reason: Fever >100.4 F Acetaminophen (Tylenol 650mg/20.3ml Solution Ud) 650 mg PO Q4 PRN PRN Reason: Temperature Last Admin: 11/23/16 23:50 Dose: 650 mg Acetylcysteine (Acetylcysteine 20%) 2 ml INH RBID [facility] Last Admin: 12/03/16 07:41 Dose: 2 ml Albuterol/Ipratropium (Duoneb 3 Mg/0.5 Mg (3 Ml) Ud) 3 ml INH RQID [facility] Last Admin: 12/03/16 15:44 Dose: 3 ml Albuterol/Ipratropium (Duoneb 3 Mg/0.5 Mg (3 Ml) Ud) 3 ml INH RQ6 PRN PRN Reason: Shortness of Breath Last Admin: 12/02/16 00:18 Dose: 3 ml Piperacillin Sod/Tazobactam (Sod 3.375 gm/ Sodium Chloride) 100 mls @ 100 mls/ hr IVPB Q8 [facility] Stop: 12/05/16 10:30 Last Admin: 12/03/16 09:36 Dose: 100 mls/hr Insulin Human Regular (Humulin R) 0 units SC ACCU-CHECK [facility] PRN Reason: Protocol Last Admin: 12/03/16 13:01 Dose: Not Given Magnesium Oxide (Mag-Ox) 400 mg PO BID [facility] Last Admin: 12/03/16 09:37 Dose: 400 mg Metronidazole (Flagyl) 500 mg PO Q8 [facility] Last Admin: 12/03/16 09:37 Dose: 500 mg Pantoprazole Sodium (Protonix Inj) 40 mg IVP DAILY [facility] Last Admin: 12/03/16 09:36 Dose: 40 mg Sucralfate (Carafate Oral Susp) 1 gm PO QID [facility] Last Admin: 12/03/16 13:00 Dose: Not Given - Labs Labs: - Additional Findings Additional findings: - Constitutional Appears: No Acute Distress - Head Exam Head Exam: ATRAUMATIC - Eye Exam Eye Exam: EOMI, PERRL - ENT Exam Additional comments: dry oral mucosa - Respiratory Exam Respiratory Exam: NORMAL BREATHING PATTERN Additional comments: thick phlegm no wheezing - Cardiovascular Exam Cardiovascular Exam: RRR, +S1, +S2 - GI/Abdominal Exam GI & Abdominal Exam: Soft, Normal Bowel Sounds Additional comments: NT, ND - Extremities Exam Additional comments: no edema b/l LE dry b/l heel ulcers - Neurological Exam Neurological Exam: Awake Laboratory Results - last 72 hr 11/30/16 11/30/16 12/01/16 16:32 21:20 05:43 WBC RBC Hgb Hct MCV MCH MCHC RDW Plt Count pCO2 pO2 HCO3 ABG pH ABG Total CO2 ABG O2 Saturation ABG O2 Content ABG Base Excess ABG Hemoglobin ABG Carboxyhemoglobin POC ABG HHb (Measured) ABG Methemoglobin ABG O2 Capacity Torres Test A-a O2 Difference Hgb O2 Saturation Vent Mode Mechanical Rate FiO2 Inspiratory BiPAP Expiratory BiPAP Blood Gas Comments Crit Value Called To Crit Value Called By Crit Value Read Back Blood Gas Notified Time Sodium Potassium Chloride Carbon Dioxide Anion Gap BUN Creatinine Est GFR ( Amer) Est GFR (Non-Af Amer) POC Glucose (mg/dL) 210 H 161 H 127 H Random Glucose Calcium C. difficile Ag & Toxin 12/01/16 12/01/16 12/01/16 08:50 11:46 12:40 WBC RBC Hgb Hct MCV MCH MCHC RDW Plt Count pCO2 pO2 HCO3 ABG pH ABG Total CO2 ABG O2 Saturation ABG O2 Content ABG Base Excess ABG Hemoglobin ABG Carboxyhemoglobin POC ABG HHb (Measured) ABG Methemoglobin ABG O2 Capacity Torres Test A-a O2 Difference Hgb O2 Saturation Vent Mode Mechanical Rate FiO2 Inspiratory BiPAP Expiratory BiPAP Blood Gas Comments Crit Value Called To Crit Value Called By Crit Value Read Back Blood Gas Notified Time Sodium 150 H Potassium 3.2 L Chloride 122 H Carbon Dioxide 20 L Anion Gap 11 BUN 18 Creatinine 1.0 Est GFR ( Amer) > 60 Est GFR (Non-Af Amer) > 60 POC Glucose (mg/dL) 127 H Random Glucose 117 H Calcium 7.3 L C. difficile Ag & Toxin Negative 12/01/16 12/01/16 12/02/16 18:07 20:51 04:28 WBC RBC Hgb Hct MCV MCH MCHC RDW Plt Count pCO2 30 L pO2 44 L* HCO3 23.2 ABG pH 7.46 H ABG Total CO2 22.2 ABG O2 Saturation 84.8 L ABG O2 Content 12.9 L ABG Base Excess -1.8 ABG Hemoglobin 11.2 L ABG Carboxyhemoglobin 1.4 POC ABG HHb (Measured) 14.7 H ABG Methemoglobin 2.0 ABG O2 Capacity 15.2 L Torres Test Yes A-a O2 Difference 346.0 Hgb O2 Saturation 81.9 L Vent Mode Mechanical Rate 12 FiO2 60.0 Inspiratory BiPAP 12 Expiratory BiPAP 5 Blood Gas Comments Bip 12 Crit Value Called To Sharon king Crit Value Called By 333 Crit Value Read Back Y Blood Gas Notified Time 520 Sodium Potassium Chloride Carbon Dioxide Anion Gap BUN Creatinine Est GFR ( Amer) Est GFR (Non-Af Amer) POC Glucose (mg/dL) 211 H 156 H Random Glucose Calcium C. difficile Ag & Toxin 12/02/16 12/02/16 12/02/16 05:28 08:50 08:50 WBC 14.0 H RBC 3.19 L Hgb 9.5 L Hct 29.3 L MCV 91.9 MCH 29.8 MCHC 32.5 L RDW 17.6 H Plt Count 208 pCO2 pO2 HCO3 ABG pH ABG Total CO2 ABG O2 Saturation ABG O2 Content ABG Base Excess ABG Hemoglobin ABG Carboxyhemoglobin POC ABG HHb (Measured) ABG Methemoglobin ABG O2 Capacity Torres Test A-a O2 Difference Hgb O2 Saturation Vent Mode Mechanical Rate FiO2 Inspiratory BiPAP Expiratory BiPAP Blood Gas Comments Crit Value Called To Crit Value Called By Crit Value Read Back Blood Gas Notified Time Sodium 148 Potassium 3.8 Chloride 120 H Carbon Dioxide 19 L Anion Gap 13 BUN 19 Creatinine 1.0 Est GFR ( Amer) > 60 Est GFR (Non-Af Amer) > 60 POC Glucose (mg/dL) 135 H Random Glucose 137 H Calcium 7.9 L C. difficile Ag & Toxin 12/02/16 12/02/16 12/02/16 10:50 11:41 16:00 WBC RBC Hgb Hct MCV MCH MCHC RDW Plt Count pCO2 31 L pO2 206 H HCO3 23.0 ABG pH 7.44 ABG Total CO2 22.1 ABG O2 Saturation 100.7 H ABG O2 Content 13.1 L ABG Base Excess -2.5 L ABG Hemoglobin 9.2 L ABG Carboxyhemoglobin 1.4 POC ABG HHb (Measured) -0.7 L ABG Methemoglobin 1.6 ABG O2 Capacity 13.0 L Torres Test Yes A-a O2 Difference 468.0 Hgb O2 Saturation 97.7 Vent Mode Bipap Mechanical Rate FiO2 100.0 Inspiratory BiPAP 12 Expiratory BiPAP 5 Blood Gas Comments Crit Value Called To Crit Value Called By Crit Value Read Back Blood Gas Notified Time Sodium Potassium Chloride Carbon Dioxide Anion Gap BUN Creatinine Est GFR ( Amer) Est GFR (Non-Af Amer) POC Glucose (mg/dL) 190 H 151 H Random Glucose Calcium C. difficile Ag & Toxin 12/02/16 12/03/16 21:08 05:22 WBC RBC Hgb Hct MCV MCH MCHC RDW Plt Count pCO2 pO2 HCO3 ABG pH ABG Total CO2 ABG O2 Saturation ABG O2 Content ABG Base Excess ABG Hemoglobin ABG Carboxyhemoglobin POC ABG HHb (Measured) ABG Methemoglobin ABG O2 Capacity Torres Test A-a O2 Difference Hgb O2 Saturation Vent Mode Mechanical Rate FiO2 Inspiratory BiPAP Expiratory BiPAP Blood Gas Comments Crit Value Called To Crit Value Called By Crit Value Read Back Blood Gas Notified Time Sodium Potassium Chloride Carbon Dioxide Anion Gap BUN Creatinine Est GFR ( Amer) Est GFR (Non-Af Amer) POC Glucose (mg/dL) 213 H 176 H Random Glucose Calcium C. difficile Ag & Toxin Microbiology 11/26/16 20:01 Nose MRSA Culture (Admit) - Final MRSA NOT DETECTED 11/20/16 10:00 Blood-Venous Blood Culture - Final NO GROWTH AFTER 5 DAYS 11/20/16 10:00 Blood-Venous Gram Stain - Final TEST NOT PERFORMED 11/21/16 10:00 Trachasp Gram Stain - Final 11/21/16 10:00 Trachasp Sputum Culture - Final Klebsiella Pneumoniae Ssp Pneu 11/20/16 15:00 Nose MRSA Culture (Admit) - Final MRSA NOT DETECTED 11/20/16 01:57 Urine,Triplett Urine Culture - Final No Growth (<1,000 CFU/ML) Accession No. : [id number] Patient Name / ID : GRACE [id number] Exam Date : 12/02/2016 13:25:40 ( Approved ) Study Comment : Sex / Age : M / 71Y Creator : Manfred Strickland MD Dictator : Manfred Strickland MD Online Merchandiser : Hardware Design Engineer : Manfred Strickland MD Approver2 : Report Date : 12/02/2016 14:37:11 My Comment : PROCEDURE: CT chest dated 12/02/2016 HISTORY: Respiratory Failure , Pneumonia COMPARISON: Comparison made with chest radiograph and CT scan chest dated 11/24/2016 and 03/2017 respectively. TECHNIQUE: Contiguous axial images were obtained through the chest without intravenous contrast enhancement. Sagittal and coronal reconstructions were performed. Radiation dose (DLP): 673.77 mGy-cm. This CT exam was performed using one or more of the following dose reduction techniques: Automated exposure control, adjustment of the mA and/or kV according to patient size, and/or use of iterative reconstruction technique. FINDINGS: LUNGS: Small to medium size right-sided effusion. . Right lower lobe consolidation with air bronchograms may represent atelectasis however superimposed infiltrate not excluded. Distal right lower lobe segmental bronchi on the appear partially collapsed. Rule out mucous plugging nodular infiltrate changes seen throughout the right upper lobe. Small left-sided effusion and mild left basilar atelectasis. Nodular infiltrate changes seen throughout the left lower and upper lobes. MEDIASTINUM: Heart size is within range of normal. No significant pericardial effusion. Ascending thoracic aorta measures approximately 3.6 cm and descending thoracic aorta measures approximately 2.5 cm. Pulmonary trunk measures approximately 2.45 cm. Multiple mediastinal lymph nodes some of which are prominent the largest measuring 17.5 mm . Moderately large hiatal hernia with wall thickening of the distal esophagus that could be due to protrusion of gastric mucosa. The possibility of esophagitis not excluded. Note also that there does appear to be radiopaque questionable contrast within the dependent portion of the lumen of the at hiatal hernia appear clinical correlation recommended. Trachea and proximal mainstem bronchi patent. No endoluminal lesions seen. PLEURA: As above. No evidence of pneumothorax. BONES: Minor multilevel degenerative spondylosis of the thoracic spine. There are no acute compression fractures no retropulsed fragments. No suspicious lytic or blastic lesions are identified. UPPER ABDOMEN: Grossly unremarkable. OTHER FINDINGS: None. IMPRESSION: Small to medium size right-sided effusion. . Right lower lobe consolidation with air bronchograms may represent atelectasis however superimposed infiltrate not excluded. Minor left basilar atelectasis. . Patchy early nodular infiltrate changes seen in the left lower lobe Multiple mediastinal lymph nodes several of which are enlarged. Assessment and Plan (1) Respiratory failure Status: Acute (2) Septic shock Status: Acute (3) GEORGINA (acute kidney injury) Status: Acute (4) Leukocytosis Status: Acute - Assessment and Plan (Free Text) Assessment: A/P- 71 year old male from [place] with multiple medical conditions including DM II, HTN, previous e.fecalis bacteremia in 10/2016, h/o right third toe amputation for OM admitted with sob and hypoxemia and is intubated and on pressors. clinically better. breathing on his own, only on NC. afebrile leukocytosis again blood cx- neg x 1 urine cx- neg sputum cx from trach- Klebsiella brower sensitive CXR- ? left lung pneumonia as per report + stool c.diff. repeat stool c.diff- negative tox and AG cxr-Right effusion and ? infiltrate as per report Plan- empiric broad spectrum abx coverage with vanco and zosyn day #12 the zosyn will treat the klebsiella pneumonia pneumonia continue with zosyn for 2 more days. monitor aspiration precautions. pt. will most likkley need bronchoscopy to remove these thick secretions as pt. can't expectorate. to be decided by top cager. continue with oral flagyl for c.diff as well eventhough repeat toxin and ag was negatibe since pt. is still on IV abx. can d.c it once IV abx are d/c. check wbc in am.
[2016-12-03] MEDS: Acetaminophen 650mg/20.3ml solution UD PO PRN (22:17)
[2016-12-04] MEDS: Piperacillin/Tazobact 3.375 GM in Sodium Chloride 0.9% 100 ML IVPB SCH ×3 (00:13→17:26)
[2016-12-04 02:42] LABS: RBC URINE 1061 /hpf (0-3); URINE BACTERIA MOD (<OCC); URINE BILIRUBIN NEGATIVE (NEGATIVE); URINE BLOOD LARGE (NEGATIVE); URINE CALCIUM OXALATE CRYSTALS MANY /hpf (<OCC); URINE COLOR BLUE (YELLOW); URINE GLUCOSE (UA) NEG (Normal); URINE KETONE NEGATIVE (NEGATIVE); URINE LEUKOCYTE ESTERASE MOD Leu/uL (Negative); URINE PROTEIN 100 mg/dL (NEGATIVE); URINE UROBILINOGEN 0.2-1.0 mg/dL (0.2-1.0); WBC CLUMPS MANY /hpf; WBC URINE 5827 /hpf (0-5)
[2016-12-04] MEDS: Acetaminophen 650mg/20.3ml solution UD PO PRN ×3 (04:42→17:41)
--- NOTE | 2016-12-04 05:56 | CT ---
EXAM: CT Head Without Intravenous Contrast CLINICAL HISTORY: 71 years old, male; Signs and symptoms; Other: Not responding; Additional info: Unarrousable by bed TECHNIQUE: Axial computed tomography images of the head/brain without intravenous contrast. All CT scans at this facility use one or more dose reduction techniques, viz.: automated exposure control; ma/kV adjustment per patient size (including targeted exams where dose is matched to indication; i.e. head); or iterative reconstruction technique. Coronal and sagittal reformatted images were created and reviewed. COMPARISON: CT - HEAD W/O CONTRAST 10/05/2016 7:07:33 PM FINDINGS: Brain: [id number] atrophy. No intracranial hemorrhage. No mass. Multiple scattered foci of decreased attenuation within periventricular/subcortical white matter. No definite edema. Ventricles: No hydrocephalus. Bones/joints: No acute fracture. Soft tissues: Unremarkable. Vasculature: Mild atherosclerotic disease of intracranial arteries. Sinuses: Complete opacification of RIGHT maxillary sinus. Near complete opacification of frontal sinuses. Partial opacification of ethmoid sinuses. Mibr-go-eoszazox mucosal thickening/small fluid of LEFT maxillary sinus. Mastoid air cells: Partial opacification of mastoids. Orbits: Unremarkable as visualized. IMPRESSION: 1. Nonspecific white matter changes. Acute infarction may be CT occult within first 24 hours. If a focal deficit persists, consider followup CT or MRI for further evaluation. 2. Sinus disease. 3. Mastoid disease.
[2016-12-04 07:24] LABS: BASO # 0.1 K/uL (0.0-0.2); EOS # 0.1 K/uL (0.0-0.7); EOS % 1.1 % (0.0-4.0); HEMATOCRIT 27.2 % (35.0-51.0); LYMPH # 1.5 K/uL (1.0-4.3); LYMPH % 13.8 % (20.0-40.0); MEAN CELL VOLUME 93.6 fl (80.0-94.0); MEAN CORPUSCULAR HEMOGLOBIN 29.5 pg (27.0-31.0); MEAN CORPUSCULAR HGB CONC 31.6 g/dL (33.0-37.0); MEAN PLATELET VOLUME 9.1 fl (7.2-11.7); MONO # 0.5 K/uL (0.0-0.8); MONO % 4.7 % (0.0-10.0); NEUT # 8.8 K/uL (1.8-7.0); NEUT % 79.4 % (50.0-75.0); RED CELL DISTRIBUTION WIDTH 18.2 % (11.5-14.5)
[2016-12-04 07:32] LABS: ALB/GLOB RATIO 0.5 (1.0-2.1); BILIRUBIN,TOTAL 0.5 mg/dl (0.2-1.3); CALCIUM 7.8 mg/dL (8.4-10.2); POTASSIUM 3.6 MMOL/L (3.6-5.0); TOTAL PROTEIN 7.1 G/DL (6.3-8.2)
[2016-12-04] MEDS: Insulin Regular 100 units/ml SC SCH ×3 (07:49→22:28)
[2016-12-04] MEDS: Albuterol-Ipratrop 3 mg / 0.5 (3 ml) UD INH SCH ×4 (08:20→19:43)
[2016-12-04] MEDS: Acetylcysteine 20% Inhal Soln (4ml) INH SCH ×2 (08:20→19:43)
[2016-12-04] MEDS: Magnesium Oxide 400 mg Tab UD PO SCH ×2 (08:47→17:19)
[2016-12-04] MEDS: Sucralfate 1 gm/10 ml Oral Susp UD PO SCH ×3 (08:56→22:00)
[2016-12-04] MEDS ORDERED: Sodium Chloride 0.9% 1,000 ML IV SCH (12:15)
[2016-12-04 12:20] LABS: ABG ALLEN TEST YES; ARTERIAL BLOOD GAS HCO3 18.2 mmol/L (21-28); ARTERIAL BLOOD GAS O2 CAPACITY 10.6 mL/dL (16-24); ARTERIAL BLOOD GAS O2 CONTENT 10.7 ML/dL (15-23); ARTERIAL BLOOD GAS PH 7.16 (7.35-7.45); ARTERIAL BLOOD GAS PO2 97 mm/Hg (80-100); ARTERIAL BLOOD HGB O2 SAT 97.1 % (95.0-98.0); CARBOXYHEMOGLOBIN 2.2 % (0.5-1.5); HHB -0.6 % (0.0-5.0); METHEMOGLOBIN 1.2 % (0.0-3.0)
--- NOTE | 2016-12-04 12:54 | PCM.RRT ---
<Tanisha Shaikh - Last Filed: 12/04/16 13:19> LEVI MAKER Nurse Assessment - Situation LEVI MAKER Responder Arrival Time: 11:58 Location: 4 n Room Number: 412 LEVI MAKER Reason for Call: Hypotension, O2 Saturation below 90%, Change in Mental Status LEVI MAKER Called By: RN - Ventilator Settings FIO2 (% Oxygen): 50 I.Reason for LEVI MAKER - A) Acute Change in Patient: Subjective: LEVI MAKER arrival time 11:58 location room 412 LEVI MAKER initial vitals BP 60/30, HR 105, S: 71 yo M patient who initialy admitted for PNA and septic shock was found unresponsive by the nurse, no reacting to verbal or physical response. Patient is noted to be hypotensive. Patient was initially intubated in ICU and in transition to tele on non breathing mask. O: General: in acute distress, seem unresponsive. CVS: S1 S2 present, tachycardia. Resp: rales and ronchi noted Abd: soft non tender [employer]: patient non responding to physical or verbal stimulae LEVI MAKER interventions: 1 ekg [address] Mukherjee. 3 Suction 4 ABG: metabolic and resp acidosis 5 cbc, 6 cmp, 7 troponin, 8 procalcitonin, 9 cxr, 10 lactic acid, 11 blood and urine cx 12 mg, ph. A/P: 71 yo M patient who initialy admitted for PNA and septic shock was found unresponsive by the nurse, no reacting to verbal or physical response. 1-f/u labs 2-transfer to ICU 3-f/U ICU recommendations. 4-Dr Day pt PMD was at bedside Physicians present throughout LEVI MAKER - LEVI MAKER leader: Dr. León - ICU attending: Dr. Izquierdo - Anesthesia: Dr. Mukherjee - PMD: Dr. Day - Residents Rodney Feliz. <Mariana León - Last Filed: 12/04/16 15:11> Attending/Attestation - Attestation I have personally seen and examined this patient.: Yes I have fully participated in the care of the patient.: Yes I have reviewed all pertinent clinical information, including history, physical exam and plan: Yes Notes (Text): LEVI MAKER called bec of Unresponsiveness and Hypotension Responded to the LEVI MAKER with the residents Found pt to be unresponsive , very shallow respiration, and hypotensive 50s systolic, febrile Pulses tready Skin mottled Problems: Acute Respiratory Failure r/o Aspiration Severe Sepsis Unresponsiveness - IVF bolus - Intubate pt for airway protection- Anesthesia intubated pt -100% NRBM - EKG, ABG, CXR stat - CBC, CMP, Lactic acid, Trop, Mg , Phos, Procalcitonin, Blood c/s - Boat Designer consulted , pt may need ptressors - Dr Day , pt's PMD notified of event
--- NOTE | 2016-12-04 13:10 | CP.PCM.PN ---
Subjective - Date & Time of Evaluation Date of Evaluation: 12/04/16 Time of Evaluation: 12:30 - Subjective Subjective: Paged by Nursing quarry supervisor for rapid response patient needing intubation. Briefly 71y.o male with multiple med. problems, SPORTS MEDICINE TRAINER called. Upon arrival, patient very poor respiratory effort and mask ventilated by SPORTS MEDICINE TRAINER team. Intubated with Mac 3 blade and 7.5 ETT, grade 1 view, atraumatic, one attempt, ETT secured at 21cms at the lip. No drugs administered or ordered for intubation. CXR ordered by SPORTS MEDICINE TRAINER team and transfer to ICU. Objective - Vital Signs/Intake and Output Vital Signs (last 24 hours): Temp Pulse Resp BP Pulse Ox 102.1 F H 106 H 20 63/37 L 95 12/04/16 12:00 12/04/16 12:00 12/04/16 12:00 12/04/16 12:00 12/04/16 12:00 Intake and Output: 12/04/16 12/04/16 06:59 18:59 Intake Total 590 Output Total 200 Balance 390 - Medications Medications: Current Medications Acetaminophen (Tylenol 650 Mg Supp) 650 mg FL Q4 PRN PRN Reason: Fever >100.4 F Acetaminophen (Tylenol 650mg/20.3ml Solution Ud) 650 mg PO Q4 PRN PRN Reason: Temperature Last Admin: 12/04/16 08:56 Dose: 650 mg Acetylcysteine (Acetylcysteine 20%) 2 ml INH RBID [facility] Last Admin: 12/04/16 08:20 Dose: 2 ml Albuterol/Ipratropium (Duoneb 3 Mg/0.5 Mg (3 Ml) Ud) 3 ml INH RQID [facility] Last Admin: 12/04/16 11:26 Dose: 3 ml Albuterol/Ipratropium (Duoneb 3 Mg/0.5 Mg (3 Ml) Ud) 3 ml INH RQ6 PRN PRN Reason: Shortness of Breath Last Admin: 12/02/16 00:18 Dose: 3 ml Piperacillin Sod/Tazobactam (Sod 3.375 gm/ Sodium Chloride) 100 mls @ 100 mls/ hr IVPB Q8 [facility] Stop: 12/05/16 10:30 Last Admin: 12/04/16 08:48 Dose: 100 mls/hr Sodium Chloride (Sodium Chloride 0.9%) 1,000 mls @ 999 mls/hr IV .Q1H1M [facility] Stop: 12/05/16 12:06 Norepinephrine Bitartrate 4 mg (/ Dextrose) 254 mls @ 9.52 mls/hr IV .Q24H [facility] ; 2.5 MCG/MIN PRN Reason: Protocol Insulin Human Regular (Humulin R) 0 units SC ACCU-CHECK [facility] PRN Reason: Protocol Last Admin: 12/04/16 07:49 Dose: Not Given Magnesium Oxide (Mag-Ox) 400 mg PO BID [facility] Last Admin: 12/04/16 08:47 Dose: 400 mg Metronidazole (Flagyl) 500 mg PO Q8 [facility] Last Admin: 12/04/16 08:47 Dose: 500 mg Pantoprazole Sodium (Protonix Inj) 40 mg IVP DAILY [facility] Last Admin: 12/03/16 09:36 Dose: 40 mg Sucralfate (Carafate Oral Susp) 1 gm PO QID [facility] Last Admin: 12/04/16 08:56 Dose: 1 gm - Labs Labs: 12/04/16 06:00 12/04/16 06:00 PT 12.3 Seconds (9.8-13.1) 11/21/16 13:30 INR 1.2 (0.9-1.2) 11/21/16 13:30 APTT 33.7 Seconds (25.6-37.1) 11/21/16 13:30
--- NOTE | 2016-12-04 13:35 | RAD ---
HISTORY: respiratory failure COMPARISON: Comparison made with chest radiograph 11/24/[address] chest dated 12/02/2016. FINDINGS: In situ ETT, tip of which lies approximately 3.6 cm above shira. Right IJ central venous line is no longer visible. There has also been removal of the NGT. LUNGS: Re- demonstrated are bibasilar atelectasis and or infiltrate changes right and small right and tiny left effusion. Note these changes are seen to better advantage on prior CT scan. . Central pulmonary vasculature is minimally increased. PLEURA: No significant pleural effusion identified, no pneumothorax apparent. CARDIOVASCULAR: Normal. OSSEOUS STRUCTURES: No significant abnormalities. VISUALIZED UPPER ABDOMEN: Normal. OTHER FINDINGS: None. IMPRESSION: ETT as above. Interval removal right IJ central venous line and NGT. Re- demonstrated are bibasilar atelectasis and or infiltrate changes greater than left right greater than left and small right and tiny left effusion. Note these changes are seen to better advantage on prior CT scan. . Central pulmonary vasculature appears slightly increased
[2016-12-04] MEDS ORDERED: Sodium Chloride 3% for Inhalation 4 ML VIAL.NEB IH PRN (13:49)
[2016-12-04 14:10] LABS: HEMATOCRIT 22.2 % (35.0-51.0); MEAN CELL VOLUME 95.8 fl (80.0-94.0); MEAN CORPUSCULAR HEMOGLOBIN 30.6 pg (27.0-31.0); MEAN CORPUSCULAR HGB CONC 31.9 g/dL (33.0-37.0); RED CELL DISTRIBUTION WIDTH 18.6 % (11.5-14.5)
[2016-12-04 14:17] LABS: WHITE BLOOD COUNT 9.9 K/uL (4.8-10.8)
[2016-12-04 14:26] LABS: ALB/GLOB RATIO 0.5 (1.0-2.1); BILIRUBIN,TOTAL 0.2 mg/dl (0.2-1.3); CALCIUM 7.4 mg/dL (8.4-10.2); MAGNESIUM 1.9 MG/DL (1.6-2.3); POTASSIUM 3.8 MMOL/L (3.6-5.0); TOTAL PROTEIN 5.8 G/DL (6.3-8.2)
[2016-12-04 14:29] LABS: ABG ALLEN TEST YES; ABG MECHANICAL RATE 16; ARTERIAL BLOOD GAS HCO3 17.9 mmol/L (21-28); ARTERIAL BLOOD GAS MODE PVC/AC; ARTERIAL BLOOD GAS PH 7.29 (7.35-7.45); ARTERIAL BLOOD GAS PO2 389 mm/Hg (80-100); ARTERIAL BLOOD HGB O2 SAT 97.2 % (95.0-98.0); ATERIAL BLOOD GAS PEEP 5; CARBOXYHEMOGLOBIN 0.5 % (0.5-1.5); HHB 0.4 % (0.0-5.0); METHEMOGLOBIN 1.9 % (0.0-3.0)
--- NOTE | 2016-12-04 14:57 | CP.PCM.PN ---
Subjective - Date & Time of Evaluation Date of Evaluation: 12/04/16 Time of Evaluation: 13:30 - Subjective Subjective: F/U Acute Respiratory Failure. Pt intubated for respiratory failure, awake, attempt to response to verbal stimuli, generalized weakness. Objective - Vital Signs/Intake and Output Vital Signs (last 24 hours): Temp Pulse Resp BP Pulse Ox 102.1 F H 106 H 20 63/37 L 95 12/04/16 12:00 12/04/16 12:00 12/04/16 12:00 12/04/16 12:00 12/04/16 12:00 Intake and Output: 12/04/16 12/04/16 06:59 18:59 Intake Total 590 Output Total 200 Balance 390 - Medications Medications: Current Medications Acetaminophen (Tylenol 650 Mg Supp) 650 mg [place] Q4 PRN PRN Reason: Fever >100.4 F Acetaminophen (Tylenol 650mg/20.3ml Solution Ud) 650 mg PO Q4 PRN PRN Reason: Temperature Last Admin: 12/04/16 08:56 Dose: 650 mg Acetylcysteine (Acetylcysteine 20%) 2 ml INH RBID [facility] Last Admin: 12/04/16 08:20 Dose: 2 ml Albuterol/Ipratropium (Duoneb 3 Mg/0.5 Mg (3 Ml) Ud) 3 ml INH RQID [facility] Last Admin: 12/04/16 11:26 Dose: 3 ml Albuterol/Ipratropium (Duoneb 3 Mg/0.5 Mg (3 Ml) Ud) 3 ml INH RQ6 PRN PRN Reason: Shortness of Breath Last Admin: 12/02/16 00:18 Dose: 3 ml Piperacillin Sod/Tazobactam (Sod 3.375 gm/ Sodium Chloride) 100 mls @ 100 mls/ hr IVPB Q8 [facility] Stop: 12/05/16 10:30 Last Admin: 12/04/16 08:48 Dose: 100 mls/hr Sodium Chloride (Sodium Chloride 0.9%) 1,000 mls @ 999 mls/hr IV .Q1H1M [facility] Stop: 12/05/16 12:06 Norepinephrine Bitartrate 4 mg (/ Dextrose) 254 mls @ 9.52 mls/hr IV .Q24H [facility] ; 2.5 MCG/MIN PRN Reason: Protocol Insulin Human Regular (Humulin R) 0 units SC [facility]U-CHECK [facility] PRN Reason: Protocol Last Admin: 12/04/16 07:49 Dose: Not Given Magnesium Oxide (Mag-Ox) 400 mg PO BID [facility] Last Admin: 12/04/16 08:47 Dose: 400 mg Metronidazole (Flagyl) 500 mg PO Q8 [facility] Last Admin: 12/04/16 08:47 Dose: 500 mg Pantoprazole Sodium (Protonix Inj) 40 mg IVP DAILY [facility] Last Admin: 12/03/16 09:36 Dose: 40 mg Sucralfate (Carafate Oral Susp) 1 gm PO QID [facility] Last Admin: 12/04/16 08:56 Dose: 1 gm - Labs Labs: 12/04/16 13:47 12/04/16 13:47 PT 12.3 Seconds (9.8-13.1) 11/21/16 13:30 INR 1.2 (0.9-1.2) 11/21/16 13:30 APTT 33.7 Seconds (25.6-37.1) 11/21/16 13:30 - Constitutional Appears: In Acute Distress, Chronically Ill - Head Exam Head Exam: NORMAL INSPECTION - Eye Exam Eye Exam: PERRL - ENT Exam Additional comments: Intubated - Neck Exam Neck Exam: Normal Inspection - Respiratory Exam Respiratory Exam: Decreased Breath Sounds, Rhonchi Additional comments: Intubated - Cardiovascular Exam Cardiovascular Exam: REGULAR RHYTHM - GI/Abdominal Exam GI & Abdominal Exam: Soft, Normal Bowel Sounds - Extremities Exam Additional comments: Edema upper extremities - Back Exam Back Exam: NORMAL INSPECTION - Neurological Exam Additional comments: Intubated, response to verbal stimuli, generalized weakness. - Skin Skin Exam: Warm Assessment and Plan (1) Acute hypercapnic respiratory failure Status: Acute (2) Klebsiella pneumonia Status: Acute (3) Dehydration Status: Acute (4) Septic shock Status: Acute (5) Hyperkalemia Status: Acute (6) GEORGINA (acute kidney injury) Status: Acute (7) Type 2 diabetes mellitus with hyperglycemia Status: Chronic (8) HTN (hypertension) Status: Chronic (9) C. difficile colitis Status: Acute - Assessment and Plan (Free Text) Plan: Continue Zosyn, Vanco, rest of Tx and ventilatory support ICU Time: 39 min.
--- NOTE | 2016-12-04 15:16 | RAD ---
HISTORY: s/p TLC placement COMPARISON: No prior. FINDINGS: Interval placement left IJ central venous line with tip in the SVC. In situ ETT, tip of which lies approximately 3.5 cm above shira. NGT is present, distal aspect of which is poorly seen on this study however the tip appears to lie at or just below EG junction and therefore should be advanced. . Diffuse bilateral infiltrates consistent with pulmonary edema/CHF. Alveolar-type infiltrates effusions mid to lower lung gar with suspected right angle right effusion. Note that the left CP angle has been excluded from the film. PLEURA: As above. No apparent pneumothorax CARDIOVASCULAR: Normal. OSSEOUS STRUCTURES: No significant abnormalities. VISUALIZED UPPER ABDOMEN: Normal. OTHER FINDINGS: None. IMPRESSION: Support lines and tubes as above. Note that the tip of the NGT is poorly seen and appears to lie at or just below the EG junction and therefore should be advanced. Diffuse bilateral infiltrates consistent with pulmonary edema/CHF. Alveolar-type infiltrates effusions mid to lower lung gar with suspected right angle right effusion. Note that the left CP angle has been excluded from the film. ICU Nurse Daniel informed of these findings at approximately 3:14 p.m. with written down and read back verification.
[2016-12-04 16:06] LABS: MAGNESIUM 1.9 MG/DL (1.6-2.3); PHOSPHOROUS 4.4 mg/dl (2.5-4.5)
--- NOTE | 2016-12-04 16:37 | PCM.PROC ---
Procedures Attestation:: I certify that I have explained the specified Operation(s) or Procedure(s), risks, benefits and reasonable alternatives to the Patient and/or other person responsible. The opportunity was given to ask questions and all questions answered - Central Line Placement Left Internal Jugular Triple Lumen Catheter Aseptic technique was employed throughout the procedure: Hand Hygiene done prior to procedure, Full sterile barriers (mask, hair cover, sterile gown, sterile gloves), Full body sterile drape, Chloraprep Antiseptic: 30 second prep for IJ or SC sites CVP Time Out Performed: Yes Pt. Placed on Pulse Ox Monitor: Yes Central Line Prep: Chlorhexidine-Alcohol Combination Local Anesthesia Used: Lidocaine 1% Amount of Anesthesia Used (mls): 5 Ultrasound Used for Placement: Yes Central Line Lumen Inserted: triple Post Procedure: Sutured in Place, Good Blood Return, All Ports Aspirated, Flushed, Capped, Sterile Dressing Applied Secured by: Suture Post procedure dressing: Clear vapor permeable, Chlorhexidine disc (Biopatch) Post Procedure X-Ray: Yes Patient Tolerated Procedure: Well, No Complications Immediate Complications: None Additional Comments: Patient intubated in rapid response. Patient unable to give informed consent. Patient in whats appears to be septic shock. Line requested by ICU attending for pressors. BP 70 systolic at start of line insertion. Case was discussed with attending Dr. Guzmán prior to insertion.
--- NOTE | 2016-12-04 17:02 | CP.PCM.PN ---
Subjective - Date & Time of Evaluation Date of Evaluation: 12/04/16 Time of Evaluation: 16:58 - Subjective Subjective: Follow up Nephrology Consultation Note Assessment: critical Acute Kidney Injury (N17.9) likely due to shock/sepsis, acute tubular necrosis, also contributed by urine retention due to misplaced no/purulent urine Hypernatremia sepsis, shock HAGMA, Anemia, acute respi failure, possible aspiration DM, HTN Pneumonia, UTI Plan No acute need for renal replacement therapy at this time. pt making urine Monitor Input/Output, daily weights and renal function with basic metabolic panel fluid resuscitation with normal saline once BP stable then switch to 0.45% saline at 75-100 ml/hr. can switch to D5W by tomorrow to control hypernatremia antibiotics as per ICU PRBC as needed for anemia Dose meds/antibiotics for reduced GFR. Avoid fleets enema/magnesium based laxatives. Avoid nephrotoxins/NSAIDs/ iodinated contrast (unless needed emergently) Glycemic control Further work up for as per primary team Thanks for allowing me to participate in care of your patient. Will follow patient with you. Please call if any Qs Dr Bryan Barreto Office: [phone] Subjective: Noted events overnight. Patients had [employer] today and was intubated when found to have hypotension/shock with respi failure. not much urine output earlier but after changed in ICU, he had drained 1400 mL purulent urine shortly after Physical Examination: General Appearance: Comfortable, intubated sedated Vitals reviewed and noted as below Lungs: Normal respiratory rate/effort. Breath sounds bilateral with rales Heart: Normal rate. s1s2 normal. No rub or gallop. Extremities: no edema. Neurological: Patient is sedated Skin: Warm and dry. decreased turgor. No rash. Palpitation: Normal elasticity for age Abdomen: Abdomen is soft. Bowel sounds +. There is no abdominal tenderness, no guarding/rigidity or organomegaly : kidney or bladder not palpable. has no Access: none Labs/imaging reviewed. Past medical history, past surgical history, family history, social history, allergy reviewed Work up; renal sono: unremarkable LVEF okay Objective - Vital Signs/Intake and Output Vital Signs (last 24 hours): Temp Pulse Resp BP Pulse Ox 98.9 F 113 H 17 129/65 100 12/04/16 16:12 12/04/16 16:12 12/04/16 16:12 12/04/16 16:12 12/04/16 16:12 Intake and Output: 12/04/16 12/04/16 06:59 18:59 Intake Total 590 Output Total 200 Balance 390 - Medications Medications: Current Medications Acetaminophen (Tylenol 650 Mg Supp) 650 mg [place] Q4 PRN PRN Reason: Fever >100.4 F Acetaminophen (Tylenol 650mg/20.3ml Solution Ud) 650 mg PO Q4 PRN PRN Reason: Temperature Last Admin: 12/04/16 08:56 Dose: 650 mg Acetylcysteine (Acetylcysteine 20%) 2 ml INH RBID [facility] Last Admin: 12/04/16 08:20 Dose: 2 ml Albuterol/Ipratropium (Duoneb 3 Mg/0.5 Mg (3 Ml) Ud) 3 ml INH RQID [facility] Last Admin: 12/04/16 15:59 Dose: 3 ml Piperacillin Sod/Tazobactam (Sod 3.375 gm/ Sodium Chloride) 100 mls @ 100 mls/ hr IVPB Q8 [facility] Stop: 12/05/16 10:30 Last Admin: 12/04/16 08:48 Dose: 100 mls/hr Sodium Chloride (Sodium Chloride 0.9%) 1,000 mls @ 999 mls/hr IV .Q1H1M [facility] Stop: 12/05/16 12:06 Norepinephrine Bitartrate 4 mg (/ Dextrose) 254 mls @ 9.52 mls/hr IV .Q24H [facility] ; 2.5 MCG/MIN PRN Reason: Protocol Insulin Human Regular (Humulin R) 0 units SC ACCU-CHECK [facility] PRN Reason: Protocol Last Admin: 12/04/16 07:49 Dose: Not Given Magnesium Oxide (Mag-Ox) 400 mg PO BID [facility] Last Admin: 12/04/16 08:47 Dose: 400 mg Metronidazole (Flagyl) 500 mg PO Q8 [facility] Last Admin: 12/04/16 08:47 Dose: 500 mg Pantoprazole Sodium (Protonix Inj) 40 mg IVP DAILY [facility] Last Admin: 12/03/16 09:36 Dose: 40 mg Sucralfate (Carafate Oral Susp) 1 gm PO QID [facility] Last Admin: 12/04/16 08:56 Dose: 1 gm - Labs Labs: 12/04/16 13:47 12/04/16 13:47 PT 12.3 Seconds (9.8-13.1) 11/21/16 13:30 INR 1.2 (0.9-1.2) 11/21/16 13:30 APTT 33.7 Seconds (25.6-37.1) 11/21/16 13:30
--- NOTE | 2016-12-04 20:42 | CARD ---
APPROVED REPORT EKG Measurement Heart [id number] <Conclusion> Sinus rhythm with premature supraventricular complexes ST & T wave abnormality, consider inferior ischemia Prolonged QT Abnormal ECG
--- NOTE | 2016-12-05 00:15 | PN ---
DATE: 12/04/2016 The patient in ICU bed 431. TIME SPENT: 45 minutes. The patient is seen and evaluated at the bedside. Events since admission reviewed. Clinical course note, status post [employer] INSPECTOR today, admitted to ICU. The patient is known to ICU from admission on 11/20/2016. HISTORY OF PRESENT ILLNESS: Mr. Guzman is a 71-year-old male with history of diabetes mellitus type 2, hypertension, hyperlipidemia, chronic kidney disease, osteomyelitis of the right foot, vascular necrosis of the right hip, atrial fibrillation, peripheral vascular disease and anemia of chronic disease. He was admitted on 11/20/2016, intubated for lethargy and unresponsiveness in the prison. The patient was noted to have unstageable decubiti of the right buttocks both feet, more on the right than the left. He has history of enterococcus faecalis bacteremia and C. diff colitis. The patient was seen by ID, treated with meropenem, Flagyl. He was subsequently extubated, transferred to [address] [place] [address]. The patient was noted to be lethargic with a lot of secretions in the mouth, developed respiratory distress with oxygen desaturation, tachypneic, lethargic. He was intubated and admitted to ICU for further evaluation. PAST MEDICAL AND SURGICAL HISTORY: Noted above. ALLERGIES: NONE NOTED. The patient remains FULL CODE. PHYSICAL EXAMINATION: VITAL SIGNS: Temperature 102.1, heart rate 106, regular, blood pressure 63/37 status post fluid challenge. The patient is now intubated on mechanical ventilation, AC/PRBC rate 16, tidal volume 450, FiO2 100% with PEEP 5, exhaled tidal volume 500, rate 21, minute ventilation 8.9 L, peak airway pressure 32 and end-tidal CO2 of 17. Intake/output 1290/420. Positive balance 870. Weight 169 pounds. HEAD, EYES, EARS, NOSE AND THROAT: Pupils reactive, conjunctivae pale, sclerae white. NECK: Supple. CHEST: Bilateral breath sounds. HEART: Rhythm regular. S1 and S2 normal. ABDOMEN: Bowel sounds present, soft. Liver and spleen not palpable. EXTREMITIES: Dependent edema. Peripheral pulses are intact. Penile edema. Sacral decubitus unstageable, skin breakdown in both lower extremities unstageable. NEUROLOGIC: Slow to respond. Currently remains lethargic. CURRENT MEDICATIONS: Include Tylenol 650 q. 4 p.r.n. for temperature more than 100.4, DuoNeb 2 mL via nebulizer q.i.d., acetylcysteine 20% 2 mL via nebulizer b.i.d., Accu-Chek with regular insulin coverage, magnesium oxide 400 mg p.o. b.i.d., Flagyl 500 mg p.o. q. 8 hours, Protonix 40 IV daily, Zosyn 3.375 g IV q. 8, normal saline at 125 mL per hour and sucralfate 1 g p.o. 4 times daily. LABORATORY DATA: WBC 9.9, hemoglobin 7.1, hematocrit 22.2 and platelet count 138. PT 12.3, INR 1.2, PTT 33.7. ABG, pH 7.29, pCO2 35, oxygen saturation 99.6 on AC 16, 450, 100%. SMA-7: Sodium 152, potassium 3.8, chloride 125, CO2 18, BUN 27, creatinine 2.1, glucose 278, random glucose 278. AST 19, ALT 22, alkaline phosphatase 191, total protein 5.8, albumin 1.9. Urinalysis: WBC many, microscopic RBC 5827, yeast many, bacteria moderate. Stool occult blood positive. Vancomycin trough level 14.2. Serology: C. diff positive. Microbiology: Sputum culture positive for Klebsiella pneumoniae. IMPRESSION: 1. Pulmonary: Acute hypoxic respiratory failure requiring intubation, suspected aspiration pneumonia, copious secretions noted during the intubation and also in the endotracheal tube, antibiotic as per infectious disease consult. 2. Cardiac: Hypotensive secondary to hypovolemia, possible sepsis, continue IV hydration, maintain systolic pressure more than 100. Use pressors as needed. 3. Neurologic: Lethargic secondary to septic metabolic encephalopathy. 4. Hematology: Anemia from chronic disease; however, guaiac is noted to be positive, transfuse 2 units of packed red blood cell as recommended by PMD. Hold anticoagulation secondary to guaiac positive stool and thrombocytopenia. 5. Endocrine: Maintain blood sugar less than 180. Acute on chronic renal insufficiency. Hypernatremia, continue free water 150 mL q. 6 hours. Keep head of bed 30 degrees up. Gastrointestinal prophylaxis. 6.Infection : aspiration pneumonia, sputum positive K. Pneumonia, sepsis, Urinary tract infection, c.diff colitis on Zosyn, flagyl. ID follow up Heri Izquierdo MD MAKSIM
[2016-12-05] MEDS: Piperacillin/Tazobact 3.375 GM in Sodium Chloride 0.9% 100 ML IVPB SCH ×2 (01:00→08:45)
[2016-12-05 05:43] LABS: ABG ALLEN TEST YES; ABG MECHANICAL RATE 16; ARTERIAL BLOOD GAS HCO3 20.3 mmol/L (21-28); ARTERIAL BLOOD GAS MODE PRVC/AC; ARTERIAL BLOOD GAS O2 CAPACITY 13.8 mL/dL (16-24); ARTERIAL BLOOD GAS O2 CONTENT 13.8 ML/dL (15-23); ARTERIAL BLOOD GAS PH 7.37 (7.35-7.45); ARTERIAL BLOOD GAS PO2 187 mm/Hg (80-100); ARTERIAL BLOOD HGB O2 SAT 97.3 % (95.0-98.0); ATERIAL BLOOD GAS PEEP 5; CARBOXYHEMOGLOBIN 1.1 % (0.5-1.5); HHB 0.1 % (0.0-5.0); METHEMOGLOBIN 1.6 % (0.0-3.0)
[2016-12-05 06:39] LABS: HEMATOCRIT 29.5 % (35.0-51.0); MEAN CELL VOLUME 89.6 fl (80.0-94.0); MEAN CORPUSCULAR HEMOGLOBIN 29.5 pg (27.0-31.0); MEAN CORPUSCULAR HGB CONC 32.9 g/dL (33.0-37.0); RED CELL DISTRIBUTION WIDTH 17.2 % (11.5-14.5); WHITE BLOOD COUNT 11.4 K/uL (4.8-10.8)
[2016-12-05 06:51] LABS: ALB/GLOB RATIO 0.5 (1.0-2.1); BILIRUBIN,TOTAL 0.5 mg/dl (0.2-1.3); CALCIUM 7.8 mg/dL (8.4-10.2); POTASSIUM 3.2 MMOL/L (3.6-5.0); TOTAL PROTEIN 6.4 G/DL (6.3-8.2)
[2016-12-05] MEDS: Insulin Regular 100 units/ml SC SCH ×3 (06:54→16:32)
[2016-12-05] MEDS: Acetylcysteine 20% Inhal Soln (4ml) INH SCH ×2 (07:50→19:18)
[2016-12-05] MEDS: Albuterol-Ipratrop 3 mg / 0.5 (3 ml) UD INH SCH ×4 (07:51→19:18)
[2016-12-05] MEDS: Magnesium Oxide 400 mg Tab UD PO SCH ×2 (08:49→17:09)
[2016-12-05] MEDS: Sucralfate 1 gm/10 ml Oral Susp UD PO SCH ×4 (09:00→21:15)
--- NOTE | 2016-12-05 11:01 | RAD ---
HISTORY: intubated COMPARISON: Comparison chest 12/04/2016 FINDINGS: In situ ETT, tip of which lies approximately 4.56 cm above shira. NGT is present, tip of which has not been included on this film though distal aspect does lie well below EG junction. No change left IJ central venous line with tip in the SVC. LUNGS: Diffuse bilateral infiltrates again noted; findings could represent pneumonia or pulmonary edema/ CHF. Changes appear less densely consolidated in the lung bases though this could be due to level of inspiration. Suspect small effusions. PLEURA: As above. No apparent pneumothorax CARDIOVASCULAR: Normal. OSSEOUS STRUCTURES: No significant abnormalities. VISUALIZED UPPER ABDOMEN: Normal. OTHER FINDINGS: None. IMPRESSION: Support lines and tubes as above. Diffuse bilateral infiltrates again noted; findings could represent pneumonia or pulmonary edema/ CHF. Changes appear less densely consolidated in the lung bases though this could be due to level of inspiration. Suspect small effusions.
[2016-12-05] MEDS: Potassium CL 10mEq/100ml 100 ML IVPB SCH ×3 (11:34→14:50)
--- NOTE | 2016-12-05 14:29 | CP.PCM.PN ---
Subjective - Date & Time of Evaluation Date of Evaluation: 12/05/16 Time of Evaluation: 12:50 - Subjective Subjective: F/U Acute Respiratory Failure. Pt intubated, responding to verbal stimuli. Objective - Vital Signs/Intake and Output Vital Signs (last 24 hours): Temp Pulse Resp BP Pulse Ox 97.9 F 93 H 24 93/49 L 100 12/05/16 12:00 12/05/16 13:00 12/05/16 13:00 12/05/16 13:00 12/05/16 13:00 Intake and Output: 12/05/16 12/05/16 06:59 18:59 Intake Total 850 490 Output Total 900 Balance -50 490 - Medications Medications: Current Medications Acetaminophen (Tylenol 650mg/20.3ml Solution Ud) 650 mg PO Q4 PRN PRN Reason: Temperature Last Admin: 12/04/16 17:41 Dose: 650 mg Acetylcysteine (Acetylcysteine 20%) 2 ml INH RBID [facility] Last Admin: 12/05/16 07:50 Dose: 2 ml Albuterol/Ipratropium (Duoneb 3 Mg/0.5 Mg (3 Ml) Ud) 3 ml INH RQID [facility] Last Admin: 12/05/16 11:21 Dose: 3 ml Dextrose (Dextrose 5% In Water 1000 Ml) 1,000 mls @ 100 mls/hr IV .Q10H [facility] Stop: 12/06/16 14:04 Insulin Human Regular (Humulin R) 0 units SC ACCU-CHECK [facility] PRN Reason: Protocol Last Admin: 12/05/16 11:41 Dose: Not Given Magnesium Oxide (Mag-Ox) 400 mg PO BID [facility] Last Admin: 12/05/16 08:49 Dose: 400 mg Metronidazole (Flagyl) 500 mg PO Q8 [facility] Last Admin: 12/05/16 08:49 Dose: 500 mg Pantoprazole Sodium (Protonix Inj) 40 mg IVP DAILY [facility] Last Admin: 12/05/16 08:49 Dose: 40 mg Sucralfate (Carafate Oral Susp) 1 gm PO QID [facility] Last Admin: 12/05/16 09:00 Dose: Not Given - Labs Labs: 12/05/16 06:25 12/05/16 06:25 PT 17.0 Seconds (9.8-13.1) H 12/04/16 18:00 INR 1.6 (0.9-1.2) H 12/04/16 18:00 APTT 37.9 Seconds (25.6-37.1) H 12/04/16 17:17 - Constitutional Appears: Chronically Ill - Head Exam Head Exam: NORMAL INSPECTION - Eye Exam Eye Exam: PERRL - ENT Exam Additional comments: Intubated - Neck Exam Neck Exam: Normal Inspection - Respiratory Exam Respiratory Exam: Decreased Breath Sounds, Rhonchi - Cardiovascular Exam Cardiovascular Exam: REGULAR RHYTHM - GI/Abdominal Exam GI & Abdominal Exam: Soft, Normal Bowel Sounds - Extremities Exam Additional comments: Edema upper extremities. - Back Exam Back Exam: NORMAL INSPECTION - Neurological Exam Neurological Exam: Awake Additional comments: Intubated, response to tactile stimuli, generalized weakness. Assessment and Plan (1) Acute hypercapnic respiratory failure Status: Acute (2) Klebsiella pneumonia Status: Acute (3) Dehydration Status: Acute (4) Septic shock Status: Acute (5) Hyperkalemia Status: Acute (6) GEORGINA (acute kidney injury) Status: Acute (7) Type 2 diabetes mellitus with hyperglycemia Status: Chronic (8) HTN (hypertension) Status: Chronic (9) C. difficile colitis Status: Acute - Assessment and Plan (Free Text) Plan: Continue ventilatory support, continue Zosyn and rest of Tx.,f/u CXR ICU Time: 37 min.
--- NOTE | 2016-12-05 15:10 | CP.PCM.PN ---
Subjective - Date & Time of Evaluation Date of Evaluation: 12/05/16 Time of Evaluation: 15:08 - Subjective Subjective: Follow up Nephrology Consultation Note Assessment: critical non-oliguric Acute Kidney Injury (N17.9) likely due to shock/sepsis, acute tubular necrosis, also contributed by urine retention due to misplaced no/ purulent urine Hypernatremia, hypokalemia sepsis, shock HAGMA, Anemia, acute respi failure, possible aspiration DM, HTN Pneumonia, UTI Plan No acute need for renal replacement therapy at this time. Monitor Input/Output, daily weights and renal function with basic metabolic panel start D5W @ 75-100 ml/hr to control hypernatremia agree with K supplementation antibiotics as per ICU PRBC as needed for anemia Dose meds/antibiotics for reduced GFR. Avoid fleets enema/magnesium based laxatives. Avoid nephrotoxins/NSAIDs/ iodinated contrast (unless needed emergently) Glycemic control Further work up for as per primary team Thanks for allowing me to participate in care of your patient. Will follow patient with you. Please call if any Qs. d/w ICU Dr Bryan Barreto Office: [phone] Subjective: Noted events overnight. remains intubated/sedated 12/04/16: Patients had [employer] and was intubated when found to have hypotension/shock with respi failure. not much urine output earlier but after changed in ICU, he had drained 1400 mL purulent urine shortly after Physical Examination: General Appearance: ill appearing, intubated sedated Vitals reviewed and noted as below Lungs: Normal respiratory rate/effort. Breath sounds bilateral clear anteriorly Heart: Normal rate. s1s2 normal. No rub or gallop. Extremities: no edema. Neurological: Patient is sedated Skin: Warm and dry. decreased turgor. No rash. Palpitation: Normal elasticity for age Abdomen: Abdomen is soft. Bowel sounds +. There is no abdominal tenderness, no guarding/rigidity or organomegaly : kidney or bladder not palpable. has no Labs/imaging reviewed. Past medical history, past surgical history, family history, social history, allergy reviewed Work up; renal sono: unremarkable LVEF okay Objective - Vital Signs/Intake and Output Vital Signs (last 24 hours): Temp Pulse Resp BP Pulse Ox 97.9 F 93 H 24 93/49 L 100 12/05/16 12:00 12/05/16 13:00 12/05/16 13:00 12/05/16 13:00 12/05/16 13:00 Intake and Output: 12/05/16 12/05/16 06:59 18:59 Intake Total 850 490 Output Total 900 Balance -50 490 - Medications Medications: Current Medications Acetaminophen (Tylenol 650mg/20.3ml Solution Ud) 650 mg PO Q4 PRN PRN Reason: Temperature Last Admin: 12/04/16 17:41 Dose: 650 mg Acetylcysteine (Acetylcysteine 20%) 2 ml INH RBID [facility] Last Admin: 12/05/16 07:50 Dose: 2 ml Albuterol/Ipratropium (Duoneb 3 Mg/0.5 Mg (3 Ml) Ud) 3 ml INH RQID [facility] Last Admin: 12/05/16 11:21 Dose: 3 ml Dextrose (Dextrose 5% In Water 1000 Ml) 1,000 mls @ 100 mls/hr IV .Q10H [facility] Stop: 12/06/16 14:04 Last Admin: 12/05/16 14:51 Dose: 100 mls/hr Insulin Human Regular (Humulin R) 0 units SC ACCU-CHECK [facility] PRN Reason: Protocol Last Admin: 12/05/16 11:41 Dose: Not Given Magnesium Oxide (Mag-Ox) 400 mg PO BID [facility] Last Admin: 12/05/16 08:49 Dose: 400 mg Metronidazole (Flagyl) 500 mg PO Q8 [facility] Last Admin: 12/05/16 08:49 Dose: 500 mg Pantoprazole Sodium (Protonix Inj) 40 mg IVP DAILY [facility] Last Admin: 12/05/16 08:49 Dose: 40 mg Sucralfate (Carafate Oral Susp) 1 gm PO QID [facility] Last Admin: 12/05/16 14:00 Dose: Not Given - Labs Labs: 12/05/16 06:25 12/05/16 06:25 PT 17.0 Seconds (9.8-13.1) H 12/04/16 18:00 INR 1.6 (0.9-1.2) H 12/04/16 18:00 APTT 37.9 Seconds (25.6-37.1) H 12/04/16 17:17
--- NOTE | 2016-12-05 22:34 | CARD ---
APPROVED REPORT EKG Measurement Heart [id number] [id number] <Conclusion> Sinus rhythm with premature atrial complexes Low voltage QRS Septal infarct, age undetermined Abnormal ECG
[2016-12-06] MEDS: Piperacillin/Tazobact 3.375 GM in Sodium Chloride 0.9% 100 ML IVPB SCH ×3 (00:03→16:41)
[2016-12-06 05:35] LABS: ABG ALLEN TEST YES; ABG MECHANICAL RATE 12; ARTERIAL BLOOD GAS HCO3 20.2 mmol/L (21-28); ARTERIAL BLOOD GAS MODE A/C; ARTERIAL BLOOD GAS O2 CAPACITY 13.1 mL/dL (16-24); ARTERIAL BLOOD GAS O2 CONTENT 13.1 ML/dL (15-23); ARTERIAL BLOOD GAS PH 7.36 (7.35-7.45); ARTERIAL BLOOD GAS PO2 205 mm/Hg (80-100); ARTERIAL BLOOD HGB O2 SAT 97.2 % (95.0-98.0); ATERIAL BLOOD GAS PEEP 5; CARBOXYHEMOGLOBIN 1.2 % (0.5-1.5); HHB -0.3 % (0.0-5.0); METHEMOGLOBIN 1.8 % (0.0-3.0)
[2016-12-06 05:36] LABS: HEMATOCRIT 22.2 % (35.0-51.0); MEAN CELL VOLUME 85.4 fl (80.0-94.0); MEAN CORPUSCULAR HEMOGLOBIN 28.4 pg (27.0-31.0); MEAN CORPUSCULAR HGB CONC 33.3 g/dL (33.0-37.0); RED CELL DISTRIBUTION WIDTH 18.9 % (11.5-14.5)
[2016-12-06] MEDS: Insulin Regular 100 units/ml SC SCH ×2 (07:28→12:58)
[2016-12-06 07:43] LABS: CALCIUM 7.6 mg/dL (8.4-10.2); POTASSIUM 3.2 MMOL/L (3.6-5.0)
[2016-12-06] MEDS: Acetylcysteine 20% Inhal Soln (4ml) INH SCH ×2 (08:05→19:45)
[2016-12-06] MEDS: Albuterol-Ipratrop 3 mg / 0.5 (3 ml) UD INH SCH ×4 (08:06→19:45)
[2016-12-06] MEDS: Sucralfate 1 gm/10 ml Oral Susp UD PO SCH ×5 (08:25→21:24)
[2016-12-06] MEDS: Magnesium Oxide 400 mg Tab UD PO SCH ×2 (08:26→16:41)
[2016-12-06] MEDS ORDERED: Sodium Bicarbonate 8.4% 75 MEQ in Dextrose 5% In Water 1,000 ML IV SCH ×2 (10:30→16:52)
--- NOTE | 2016-12-06 10:55 | RAD ---
HISTORY: intubated COMPARISON: No prior. FINDINGS: In situ ETT, tip of which lies approximately 5.8 cm above shira. Left IJ central venous line with tip in the SVC unchanged. LUNGS: Re- demonstrated are mild diffuse bilateral infiltrates again noted that may represent pneumonia or pulmonary edema/CHF with questionable slight improvement. Small right-sided effusion. Questionable tiny left effusion PLEURA: As above. No pneumothorax apparent. CARDIOVASCULAR: Normal. OSSEOUS STRUCTURES: No significant abnormalities. VISUALIZED UPPER ABDOMEN: Normal. OTHER FINDINGS: None. IMPRESSION: Re- demonstrated are mild diffuse bilateral infiltrates again noted that may represent pneumonia or pulmonary edema/CHF with questionable slight improvement. Small right-sided effusion. Questionable tiny left effusion
--- NOTE | 2016-12-06 11:22 | CP.PCM.PN ---
Subjective - Date & Time of Evaluation Date of Evaluation: 12/06/16 Time of Evaluation: 11:20 - Subjective Subjective: Follow up Nephrology Consultation Note Assessment: critical non-oliguric Acute Kidney Injury (N17.9) likely due to shock/sepsis, acute tubular necrosis, also contributed by urine retention due to misplaced no/ purulent urine Hypernatremia, hypokalemia sepsis, shock HAGMA, Anemia, acute respi failure, possible aspiration DM, HTN Pneumonia, UTI metabolic acidosis with respi compensation Plan No acute need for renal replacement therapy at this time. Monitor Input/Output, daily weights and renal function with basic metabolic panel continue with D5W @ 75 ml/hr to control hypernatremia, also added 75 meq bicarb to solution ordered K supplementation antibiotics as per ICU PRBC as needed for anemia consider trial of lasix 20 mg IV bid to see if improvement in CXR findings Dose meds/antibiotics for reduced GFR. Avoid fleets enema/magnesium based laxatives. Avoid nephrotoxins/NSAIDs/ iodinated contrast (unless needed emergently) Glycemic control Further work up for as per primary team Thanks for allowing me to participate in care of your patient. Will follow patient with you. Please call if any Qs. d/w ICU Dr Bryan Barreto Office: [phone] Subjective: Noted events overnight. remains intubated 12/04/16: Patients had [employer] and was intubated when found to have hypotension/shock with respi failure. not much urine output earlier but after changed in ICU, he had drained 1400 mL purulent urine shortly after Physical Examination: General Appearance: ill appearing, intubated Vitals reviewed and noted as below Lungs: Normal respiratory rate/effort. Breath sounds bilateral with rales Heart: Normal rate. s1s2 normal. No rub or gallop. Extremities: no edema in legs but upper extremities edematous. Neurological: Patient is awake today Skin: Warm and dry. normal turgor. No rash. Palpitation: Normal elasticity for age Abdomen: Abdomen is soft. Bowel sounds +. There is no abdominal tenderness, no guarding/rigidity or organomegaly : kidney or bladder not palpable. has no. scrotal edema + Labs/imaging reviewed. Past medical history, past surgical history, family history, social history, allergy reviewed Work up; renal sono: unremarkable LVEF okay cxr: b/l diffuse infiltrates Objective - Vital Signs/Intake and Output Vital Signs (last 24 hours): Temp Pulse Resp BP Pulse Ox 98.8 F 107 H 15 111/68 100 12/06/16 08:00 12/06/16 08:00 12/06/16 08:00 12/06/16 08:00 12/06/16 08:00 Intake and Output: 12/06/16 12/06/16 06:59 18:59 Intake Total 1890 Output Total 125 Balance 1765 - Medications Medications: Current Medications Acetylcysteine (Acetylcysteine 20%) 2 ml INH RBID [facility] Last Admin: 12/06/16 08:05 Dose: 2 ml Albuterol/Ipratropium (Duoneb 3 Mg/0.5 Mg (3 Ml) Ud) 3 ml INH RQID [facility] Last Admin: 12/06/16 11:16 Dose: 3 ml Piperacillin Sod/Tazobactam (Sod 3.375 gm/ Sodium Chloride) 100 mls @ 100 mls/ hr IVPB Q8 [facility] Last Admin: 12/06/16 08:26 Dose: 100 mls/hr Sodium Bicarbonate 75 meq/ (Dextrose) 1,075 mls @ 75 mls/hr IV .[id number] [facility] Stop: 12/06/16 14:04 Insulin Human Regular (Humulin R) 0 units SC ACCU-CHECK [facility] PRN Reason: Protocol Last Admin: 12/06/16 07:28 Dose: 2 units Magnesium Oxide (Mag-Ox) 400 mg PO BID [facility] Last Admin: 12/06/16 08:26 Dose: 400 mg Metronidazole (Flagyl) 500 mg PO Q8 [facility] Last Admin: 12/06/16 08:25 Dose: 500 mg Pantoprazole Sodium (Protonix Inj) 40 mg IVP DAILY [facility] Last Admin: 12/06/16 08:25 Dose: 40 mg Potassium Chloride (Potassium Chloride Oral Soln) 40 meq NG ONCE [facility] Sucralfate (Carafate Oral Susp) 1 gm PO QID [facility] Last Admin: 12/06/16 08:25 Dose: 1 gm - Labs Labs: 12/06/16 05:31 12/06/16 06:45 PT 17.0 Seconds (9.8-13.1) H 12/04/16 18:00 INR 1.6 (0.9-1.2) H 12/04/16 18:00 APTT 37.9 Seconds (25.6-37.1) H 12/04/16 17:17
[2016-12-06] MEDS ORDERED: Potassium Chloride 20 mEq/15 ml LIQ UD NG SCH (12:00)
--- NOTE | 2016-12-06 15:52 | CP.PCM.PN ---
Subjective - Date & Time of Evaluation Date of Evaluation: 12/06/16 Time of Evaluation: 14:00 - Subjective Subjective: F/U Respiratory Failure, PNA Pt with eyes open, follows with head movements verbal stimuli, on Ventilator PRVC/AC 40% FIO2, VS stable. Objective - Vital Signs/Intake and Output Vital Signs (last 24 hours): Temp Pulse Resp BP Pulse Ox 98.5 F 88 13 134/72 100 12/06/16 15:43 12/06/16 15:43 12/06/16 15:43 12/06/16 15:43 12/06/16 15:43 Intake and Output: 12/06/16 12/06/16 06:59 18:59 Intake Total 1890 100 Output Total 125 Balance 1765 100 - Medications Medications: Current Medications Acetylcysteine (Acetylcysteine 20%) 2 ml INH RBID [facility] Last Admin: 12/06/16 08:05 Dose: 2 ml Albuterol/Ipratropium (Duoneb 3 Mg/0.5 Mg (3 Ml) Ud) 3 ml INH RQID [facility] Last Admin: 12/06/16 15:52 Dose: 3 ml Furosemide (Lasix) 20 mg IVP BID [facility] Stop: 12/07/16 09:01 Last Admin: 12/06/16 12:57 Dose: 20 mg Piperacillin Sod/Tazobactam (Sod 3.375 gm/ Sodium Chloride) 100 mls @ 100 mls/ hr IVPB Q8 [facility] Last Admin: 12/06/16 08:26 Dose: 100 mls/hr Insulin Human Regular (Humulin R) 0 units SC ACCU-CHECK [facility] PRN Reason: Protocol Last Admin: 12/06/16 12:58 Dose: Not Given Magnesium Oxide (Mag-Ox) 400 mg PO BID [facility] Last Admin: 12/06/16 08:26 Dose: 400 mg Metronidazole (Flagyl) 500 mg PO Q8 [facility] Last Admin: 12/06/16 08:25 Dose: 500 mg Pantoprazole Sodium (Protonix Inj) 40 mg IVP DAILY [facility] Last Admin: 12/06/16 08:25 Dose: 40 mg Potassium Chloride (Potassium Chloride Oral Soln) 40 meq NG ONCE [facility] Last Admin: 12/06/16 12:58 Dose: 40 meq Sucralfate (Carafate Oral Susp) 1 gm PO QID [facility] Last Admin: 12/06/16 12:58 Dose: 1 gm - Labs Labs: 12/06/16 05:31 12/06/16 06:45 PT 17.0 Seconds (9.8-13.1) H 12/04/16 18:00 INR 1.6 (0.9-1.2) H 12/04/16 18:00 APTT 37.9 Seconds (25.6-37.1) H 12/04/16 17:17 - Constitutional Appears: Chronically Ill - Head Exam Head Exam: NORMAL INSPECTION - Eye Exam Eye Exam: PERRL - ENT Exam Additional comments: Intubated - Neck Exam Neck Exam: Normal Inspection - Respiratory Exam Respiratory Exam: Decreased Breath Sounds (b/l), Rhonchi (scattered at bases) - Cardiovascular Exam Cardiovascular Exam: REGULAR RHYTHM - GI/Abdominal Exam GI & Abdominal Exam: Soft, Normal Bowel Sounds - Extremities Exam Additional comments: Edema upper extremities. - Back Exam Back Exam: NORMAL INSPECTION - Neurological Exam Neurological Exam: Awake Additional comments: Response to tactile stimuli, generalized weakness. - Psychiatric Exam Additional comments: Calm, intubated - Skin Skin Exam: Warm Assessment and Plan (1) Acute hypercapnic respiratory failure Status: Acute (2) Klebsiella pneumonia Status: Acute (3) Dehydration Status: Acute (4) Septic shock Status: Acute (5) Hyperkalemia Status: Acute (6) GEORGINA (acute kidney injury) Status: Acute (7) Type 2 diabetes mellitus with hyperglycemia Status: Chronic (8) HTN (hypertension) Status: Chronic (9) C. difficile colitis Status: Acute - Assessment and Plan (Free Text) Plan: CXR showed: Mild diffused b/l infiltrates with questionable slightly improvements. Continue ventilator support attempt of weaning, continue current Tx. ICU Time: 40 min.
--- NOTE | 2016-12-06 16:37 | CP.CCUPN ---
CCU Subjective - Physician Review Events Since Last Encounter (Free Text): 12/06/16 16:34 alert, follows some commands. CCU Objective - Vital Signs / Intake & Output Vital Signs (Last 4 hours): Vital Signs Temp Pulse Resp BP Pulse Ox 12/06/16 15:43 98.5 F 88 13 134/72 100 12/06/16 14:00 83 26 H 113/71 99 12/06/16 12:57 106/52 L Intake and Output (Last 8hrs): Intake & Output 12/06/16 12/06/16 12/06/16 06:59 14:59 22:59 Intake Total 1300 100 Output Total 125 Balance 1175 100 Intake: IV 800 Intake, Piggyback 100 100 Tube Feeding 400 Output: Urine 125 Urethral (No) 125 - Physical Exam Head: Positive for: Normocephalic Pupils: Positive for: PERRL Extroacular Muscles: Positive for: EOMI. Negative for: Gaze Palsy Conjunctiva: Negative for: Injected, Icteric Mouth: Positive for: Moist Mucous Membranes Neck: Negative for: Meningeal Signs, JVD, Lymphadenopathy Respiratory/Chest: Positive for: Decreased Breath Sounds. Negative for: Wheezes , Rhonchi Cardiovascular: Positive for: Regular Rate and Rhythm. Negative for: Murmurs, Rub Abdomen: Positive for: Normal Bowel Sounds. Negative for: Tenderness, Distention Lower Extremity: Positive for: Edema. Negative for: CALF TENDERNESS, Cyanosis Neurological: Positive for: Norm Deep Tendon Reflexes Skin: Positive for: Warm. Negative for: Rashes Psychiatric: Positive for: Lethargic - Medications Active Medications: Active Medications Generic Name Dose Route Start Last Admin Trade Name Freq PRN Reason Stop Dose Admin Acetylcysteine 2 ml 11/27/16 20:00 12/06/16 08:05 Acetylcysteine 20% INH 2 ml RBID LARRY Administration Albuterol/Ipratropium 3 ml 11/20/16 12:00 12/06/16 15:52 Duoneb 3 Mg/0.5 Mg (3 Ml) Ud INH 3 ml RQID LARRY Administration Furosemide 20 mg 12/06/16 12:00 12/06/16 12:57 Lasix IVP 12/07/16 09:01 20 mg BID LARRY Administration Piperacillin Sod/Tazobactam 100 mls @ 100 mls/hr 12/05/16 17:45 12/06/16 08: 26 Sod 3.375 gm/ Sodium Chloride IVPB 100 mls/hr Q8 LARRY Administration Insulin Human Regular 0 units 11/21/16 12:00 12/06/16 12:58 Humulin R SC Not Given ACCU-CHECK LARRY Protocol Magnesium Oxide 400 mg 11/22/16 09:00 12/06/16 08:26 Mag-Ox PO 400 mg BID LARRY Administration Metronidazole 500 mg 11/27/16 11:00 12/06/16 08:25 Flagyl PO 500 mg Q8 LARRY Administration Pantoprazole Sodium 40 mg 11/20/16 09:00 12/06/16 08:25 Protonix Inj IVP 40 mg DAILY LARRY Administration Potassium Chloride 40 meq 12/06/16 12:00 12/06/16 12:58 Potassium Chloride Oral Soln NG 40 meq ONCE LARRY Administration Sucralfate 1 gm 11/22/16 13:00 12/06/16 12:58 Carafate Oral Susp PO 1 gm QID LARRY Administration - Patient Studies Lab Studies: Microbiology Studies 12/04/16 14:00 Blood Culture - Preliminary Blood NO GROWTH AFTER 48 HOURS 12/04/16 18:00 Blood Culture - Preliminary Blood-Thru Central Line Yeast Species Gram Stain - Final 12/04/16 00:10 Blood Culture - Preliminary Blood-Venous NO GROWTH AFTER 48 HOURS 12/04/16 00:10 Blood Culture - Preliminary Blood-Venous NO GROWTH AFTER 48 HOURS 12/04/16 16:50 Urine Culture - Final Urine,No Yeast Species 12/04/16 17:00 Sputum Culture - Final Trachasp NORMAL ORAL ROSEMARY 12/04/16 18:00 MRSA Culture (Admit) - Final Naris MRSA DETECTED 12/04/16 02:05 Urine Culture - Final Urine,No Yeast Species Lab Studies 12/06/16 12/06/16 12/06/16 Range/Units 15:49 11:09 06:52 WBC (4.8-10.8) K/uL RBC (4.40-5.90) Mil/uL Hgb (12.0-18.0) g/dL Hct (35.0-51.0) % MCV (80.0-94.0) fl MCH (27.0-31.0) pg MCHC (33.0-37.0) g/dL RDW (11.5-14.5) % Plt Count (130-400) K/uL pCO2 (35-45) mm/Hg pO2 (80-100) mm/Hg HCO3 (21-28) mmol/L ABG pH (7.35-7.45) ABG Total CO2 (22-28) mmol/L ABG O2 Saturation (95-98) % ABG O2 Content (15-23) ML/dL ABG Base Excess (-2.0-3.0) mmol/L ABG Hemoglobin (11.7-17.4) g/dL ABG Carboxyhemoglobin (0.5-1.5) % POC ABG HHb (Measured) (0.0-5.0) % ABG Methemoglobin (0.0-3.0) % ABG O2 Capacity (16-24) mL/dL Torres Test A-a O2 Difference mm/Hg Hgb O2 Saturation (95.0-98.0) % Vent Mode Mechanical Rate FiO2 % Tidal Volume PEEP Sodium (132-148) mmol/l Potassium (3.6-5.0) MMOL/L Chloride (98-107) mmol/L Carbon Dioxide (22-30) mmol/L Anion Gap (10-20) BUN (9-20) mg/dl Creatinine (0.8-1.5) mg/dL Est GFR ( Amer) Est GFR (Non-Af Amer) POC Glucose (mg/dL) 192 H 143 H 161 H (65-110) mg/dL Random Glucose (75-110) mg/dL Calcium (8.4-10.2) mg/dL 12/06/16 12/06/16 12/06/16 Range/Units 06:45 05:31 05:18 WBC 6.0 (4.8-10.8) K/uL RBC 2.60 L (4.40-5.90) Mil/uL Hgb 7.4 L D (12.0-18.0) g/dL Hct 22.2 L (35.0-51.0) % MCV 85.4 D (80.0-94.0) fl MCH 28.4 (27.0-31.0) pg MCHC 33.3 (33.0-37.0) g/dL RDW 18.9 H (11.5-14.5) % Plt Count 153 (130-400) K/uL pCO2 33 L (35-45) mm/Hg pO2 205 H (80-100) mm/Hg HCO3 20.2 L (21-28) mmol/L ABG pH 7.36 (7.35-7.45) ABG Total CO2 19.6 L (22-28) mmol/L ABG O2 Saturation 100.3 H (95-98) % ABG O2 Content 13.1 L (15-23) ML/dL ABG Base Excess -6.1 L (-2.0-3.0) mmol/L ABG Hemoglobin 9.2 L (11.7-17.4) g/dL ABG Carboxyhemoglobin 1.2 (0.5-1.5) % POC ABG HHb (Measured) -0.3 L (0.0-5.0) % ABG Methemoglobin 1.8 (0.0-3.0) % ABG O2 Capacity 13.1 L (16-24) mL/dL Torres Test Yes A-a O2 Difference 110.0 mm/Hg Hgb O2 Saturation 97.2 (95.0-98.0) % Vent Mode A/c Mechanical Rate 12 FiO2 50.0 % Tidal Volume 450 PEEP 5 Sodium 146 (132-148) mmol/l Potassium 3.2 L (3.6-5.0) MMOL/L Chloride 122 H (98-107) mmol/L Carbon Dioxide 16 L (22-30) mmol/L Anion Gap 11 (10-20) BUN 30 H (9-20) mg/dl Creatinine 1.8 H (0.8-1.5) mg/dL Est GFR ( Amer) 45 Est GFR (Non-Af Amer) 37 POC Glucose (mg/dL) (65-110) mg/dL Random Glucose 144 H (75-110) mg/dL Calcium 7.6 L (8.4-10.2) mg/dL 12/05/16 Range/Units 21:13 WBC (4.8-10.8) K/uL RBC (4.40-5.90) Mil/uL Hgb (12.0-18.0) g/dL Hct (35.0-51.0) % MCV (80.0-94.0) fl MCH (27.0-31.0) pg MCHC (33.0-37.0) g/dL RDW (11.5-14.5) % Plt Count (130-400) K/uL pCO2 (35-45) mm/Hg pO2 (80-100) mm/Hg HCO3 (21-28) mmol/L ABG pH (7.35-7.45) ABG Total CO2 (22-28) mmol/L ABG O2 Saturation (95-98) % ABG O2 Content (15-23) ML/dL ABG Base Excess (-2.0-3.0) mmol/L ABG Hemoglobin (11.7-17.4) g/dL ABG Carboxyhemoglobin (0.5-1.5) % POC ABG HHb (Measured) (0.0-5.0) % ABG Methemoglobin (0.0-3.0) % ABG O2 Capacity (16-24) mL/dL Torres Test A-a O2 Difference mm/Hg Hgb O2 Saturation (95.0-98.0) % Vent Mode Mechanical Rate FiO2 % Tidal Volume PEEP Sodium (132-148) mmol/l Potassium (3.6-5.0) MMOL/L Chloride (98-107) mmol/L Carbon Dioxide (22-30) mmol/L Anion Gap (10-20) BUN (9-20) mg/dl Creatinine (0.8-1.5) mg/dL Est GFR ( Amer) Est GFR (Non-Af Amer) POC Glucose (mg/dL) 190 H (65-110) mg/dL Random Glucose (75-110) mg/dL Calcium (8.4-10.2) mg/dL Laboratory Results - last 24 hr 12/05/16 12/06/16 12/06/16 21:13 05:18 05:31 WBC 6.0 RBC 2.60 L Hgb 7.4 L D Hct 22.2 L MCV 85.4 D MCH 28.4 MCHC 33.3 RDW 18.9 H Plt Count 153 pCO2 33 L pO2 205 H HCO3 20.2 L ABG pH 7.36 ABG Total CO2 19.6 L ABG O2 Saturation 100.3 H ABG O2 Content 13.1 L ABG Base Excess -6.1 L ABG Hemoglobin 9.2 L ABG Carboxyhemoglobin 1.2 POC ABG HHb (Measured) -0.3 L ABG Methemoglobin 1.8 ABG O2 Capacity 13.1 L Torres Test Yes A-a O2 Difference 110.0 Hgb O2 Saturation 97.2 Vent Mode A/c Mechanical Rate 12 FiO2 50.0 Tidal Volume 450 PEEP 5 Sodium Potassium Chloride Carbon Dioxide Anion Gap BUN Creatinine Est GFR ( Amer) Est GFR (Non-Af Amer) POC Glucose (mg/dL) 190 H Random Glucose Calcium 12/06/16 12/06/16 12/06/16 06:45 06:52 11:09 WBC RBC Hgb Hct MCV MCH MCHC RDW Plt Count pCO2 pO2 HCO3 ABG pH ABG Total CO2 ABG O2 Saturation ABG O2 Content ABG Base Excess ABG Hemoglobin ABG Carboxyhemoglobin POC ABG HHb (Measured) ABG Methemoglobin ABG O2 Capacity Torres Test A-a O2 Difference Hgb O2 Saturation Vent Mode Mechanical Rate FiO2 Tidal Volume PEEP Sodium 146 Potassium 3.2 L Chloride 122 H Carbon Dioxide 16 L Anion Gap 11 BUN 30 H Creatinine 1.8 H Est GFR ( Amer) 45 Est GFR (Non-Af Amer) 37 POC Glucose (mg/dL) 161 H 143 H Random Glucose 144 H Calcium 7.6 L 12/06/16 15:49 WBC RBC Hgb Hct MCV MCH MCHC RDW Plt Count pCO2 pO2 HCO3 ABG pH ABG Total CO2 ABG O2 Saturation ABG O2 Content ABG Base Excess ABG Hemoglobin ABG Carboxyhemoglobin POC ABG HHb (Measured) ABG Methemoglobin ABG O2 Capacity Torres Test A-a O2 Difference Hgb O2 Saturation Vent Mode Mechanical Rate FiO2 Tidal Volume PEEP Sodium Potassium Chloride Carbon Dioxide Anion Gap BUN Creatinine Est GFR ( Amer) Est GFR (Non-Af Amer) POC Glucose (mg/dL) 192 H Random Glucose Calcium Fingerstick Blood Sugar Results: 143 Review of Systems - Review of Systems Systems not reviewed;Unavailable: Intubated Critical Care Progress Note - Ventilator Checklist Head of Bed 30 Degrees: Yes Daily Sedation Vacation: Yes Daily Assessment of Readiness to Wean: Yes Daily Spontaneous Breathing Trial: Yes PUD Prophalyxis: Yes DVT Prophylaxis: Yes Assessment/Plan (1) Pneumonia Assessment and plan: 71yo M. PMHx DM type 2, HTN, hyperlipidemia, CKD, osteomyelitis of right foot, vascular necrosis of the right hip, atrial fibrillation, pvd, anemia of chronic disease. (11/20) intubated for AMS secondary to sepsis. Extubated. Reintubate Neuro: alert, follows some commands Pulm: acute respiratory failure secondary to aspiration pneumonia, intubated on vent. duonebs qid, abx. CV: hemodynamically stable Hem: no acute issues Renal: hypernatremia improving, D5W+75meq SB@60 Endo: DM type 2. short acting insulin sliding scale q6h for coverage. GI: Glucerna@80, Free water 150ml q6h. ID: severe sepsis from UTI and aspiration pneumonia with Klebsiella pneumoniae, continue Zosyn, and c.diff colitis, continue Flagyl po. DVT proph - heparin sq GI proph - protonix IV no for strict I/O's during acute illness Code status - full code Critical Care Time spent 35 minutes Multi-disciplinary rounds were performed with house staff, nursing, speech therapy, respiratory therapy, pharmacy and nutrition with integrated input from the primary team/attending and other consulting services. The documented time is cumulative and includes review of patient data/exams/labs/chart review and examination of the patient on rounds and throughout the day; time is exclusive of any procedures or teaching time.d (12/04). Current Visit: Yes Status: Acute Priority: High
--- NOTE | 2016-12-06 17:29 | CP.PCM.PN ---
Objective - Vital Signs/Intake and Output Vital Signs (last 24 hours): Temp Pulse Resp BP Pulse Ox 98.5 F 88 13 115/80 100 12/06/16 15:43 12/06/16 15:43 12/06/16 15:43 12/06/16 16:41 12/06/16 15:43 Intake and Output: 12/06/16 12/06/16 06:59 18:59 Intake Total 1890 100 Output Total 125 Balance 1765 100 - Medications Medications: Current Medications Acetylcysteine (Acetylcysteine 20%) 2 ml INH RBID [facility] Last Admin: 12/06/16 08:05 Dose: 2 ml Albuterol/Ipratropium (Duoneb 3 Mg/0.5 Mg (3 Ml) Ud) 3 ml INH RQID [facility] Last Admin: 12/06/16 15:52 Dose: 3 ml Furosemide (Lasix) 20 mg IVP BID [facility] Stop: 12/07/16 09:01 Last Admin: 12/06/16 16:41 Dose: 20 mg Heparin Sodium (Porcine) (Heparin) 5,000 units SC Q12 [facility] PRN Reason: Protocol Piperacillin Sod/Tazobactam (Sod 3.375 gm/ Sodium Chloride) 100 mls @ 100 mls/ hr IVPB Q8 [facility] Last Admin: 12/06/16 16:41 Dose: 100 mls/hr Sodium Bicarbonate 75 meq/ (Dextrose) 1,075 mls @ 60 mls/hr IV .[id number] [facility] Stop: 12/07/16 16:54 Insulin Human Lispro (Humalog) 0 units SC Q6 [facility] PRN Reason: Protocol Insulin Human Regular (Humulin R) 0 units SC ACCU-CHECK LARRY PRN Reason: Protocol Last Admin: 12/06/16 12:58 Dose: Not Given Magnesium Oxide (Mag-Ox) 400 mg PO BID [facility] Last Admin: 12/06/16 16:41 Dose: 400 mg Metronidazole (Flagyl) 500 mg PO Q8 [facility] Last Admin: 12/06/16 16:41 Dose: 500 mg Pantoprazole Sodium (Protonix Inj) 40 mg IVP DAILY [facility] Last Admin: 12/06/16 08:25 Dose: 40 mg Potassium Chloride (Potassium Chloride Oral Soln) 40 meq NG ONCE [facility] Last Admin: 12/06/16 12:58 Dose: 40 meq Sucralfate (Carafate Oral Susp) 1 gm PO QID LARRY Last Admin: 12/06/16 16:40 Dose: 1 gm - Labs Labs: 12/06/16 05:31 12/06/16 06:45 PT 17.0 Seconds (9.8-13.1) H 12/04/16 18:00 INR 1.6 (0.9-1.2) H 12/04/16 18:00 APTT 37.9 Seconds (25.6-37.1) H 12/04/16 17:17 Assessment and Plan (1) Respiratory failure Status: Acute (2) Septic shock Status: Acute (3) GEORGINA (acute kidney injury) Status: Acute (4) Leukocytosis Status: Acute
[2016-12-06] MEDS ORDERED: guaiFENesin 200 mg/10 ml Syrup UD PO PRN (18:47)
[2016-12-06] MEDS: Micafungin 100 MG in Sodium Chloride 0.9% 100 ML IVPB SCH (21:00)
[2016-12-06] MEDS: Insulin Lispro (humaLOG) 100 Units/ml Inj SC SCH (21:27)
[2016-12-07] MEDS: Piperacillin/Tazobact 3.375 GM in Sodium Chloride 0.9% 100 ML IVPB SCH ×2 (01:12→08:25)
[2016-12-07 05:34] LABS: ABG ALLEN TEST YES; ABG MECHANICAL RATE 12; ARTERIAL BLOOD GAS HCO3 23.4 mmol/L (21-28); ARTERIAL BLOOD GAS MODE A/C; ARTERIAL BLOOD GAS O2 CAPACITY 12.2 mL/dL (16-24); ARTERIAL BLOOD GAS O2 CONTENT 12.2 ML/dL (15-23); ARTERIAL BLOOD GAS PH 7.46 (7.35-7.45); ARTERIAL BLOOD GAS PO2 163 mm/Hg (80-100); ARTERIAL BLOOD HGB O2 SAT 98.1 % (95.0-98.0); ATERIAL BLOOD GAS PEEP 5; CARBOXYHEMOGLOBIN 1.1 % (0.5-1.5); HHB -0.4 % (0.0-5.0); METHEMOGLOBIN 1.1 % (0.0-3.0)
[2016-12-07 06:18] LABS: MEAN CELL VOLUME 89.9 fl (80.0-94.0); MEAN CORPUSCULAR HEMOGLOBIN 29.6 pg (27.0-31.0); MEAN CORPUSCULAR HGB CONC 32.9 g/dL (33.0-37.0); RED CELL DISTRIBUTION WIDTH 17.1 % (11.5-14.5); WHITE BLOOD COUNT 7.5 K/uL (4.8-10.8)
[2016-12-07 06:53] LABS: ALB/GLOB RATIO 0.5 (1.0-2.1); BILIRUBIN,TOTAL 0.4 mg/dl (0.2-1.3); CALCIUM 7.1 mg/dL (8.4-10.2); MAGNESIUM 1.6 MG/DL (1.6-2.3); POTASSIUM 3.7 MMOL/L (3.6-5.0); TOTAL PROTEIN 5.8 G/DL (6.3-8.2)
--- NOTE | 2016-12-07 07:47 | RAD ---
PROCEDURE: CHEST RADIOGRAPH, 1 VIEW HISTORY: Intubated. COMPARISON: Portable chest 12/06/2016. FINDINGS: Endotracheal tube, left central venous line and NG tube are not significantly changed in appearance. LUNGS: Slight increasing patchiness in the right base is appreciated atresia pleural effusion remaining. Limited left infrahilar infiltrate is appreciate with reticular markings remaining remaining slightly increased. The reticular pattern may be a reflection of minimal CHF S no cephalization is appreciated this time. Clinically correlate further. No pneumothorax. PLEURA: As above. CARDIOVASCULAR: Normal. OSSEOUS STRUCTURES: No significant abnormalities. VISUALIZED UPPER ABDOMEN: Normal. OTHER FINDINGS: None. IMPRESSION: Mild increase in right-sided infiltrate with limited left-sided infiltrate unchanged. Reticular markings remain increased which may reflect an element of CHF though limited.
[2016-12-07] MEDS: Albuterol-Ipratrop 3 mg / 0.5 (3 ml) UD INH SCH ×3 (08:05→15:49)
[2016-12-07] MEDS: Acetylcysteine 20% Inhal Soln (4ml) INH SCH ×2 (08:05→20:43)
[2016-12-07] MEDS: Sucralfate 1 gm/10 ml Oral Susp UD PO SCH ×2 (08:21→12:12)
[2016-12-07] MEDS: Magnesium Oxide 400 mg Tab UD PO SCH (08:22)
[2016-12-07] MEDS: Micafungin 100 MG in Sodium Chloride 0.9% 100 ML IVPB SCH (08:23)
[2016-12-07] MEDS: Insulin Lispro (humaLOG) 100 Units/ml Inj SC SCH ×3 (11:07→21:29)
--- NOTE | 2016-12-07 12:16 | CP.PCM.PN ---
Subjective - Date & Time of Evaluation Date of Evaluation: 12/07/16 Time of Evaluation: 12:40 - Subjective Subjective: F/U Acute Respiratory Failure. Awake , follows simple commands Objective - Vital Signs/Intake and Output Vital Signs (last 24 hours): Temp Pulse Resp BP Pulse Ox 99.5 F 89 31 H 115/90 100 12/07/16 07:53 12/07/16 10:00 12/07/16 10:00 12/07/16 10:00 12/07/16 10:00 Intake and Output: 12/07/16 12/07/16 06:59 18:59 Intake Total 1700 1050 Output Total 1450 700 Balance 250 350 - Medications Medications: Current Medications Acetylcysteine (Acetylcysteine 20%) 2 ml INH RBID [facility] Last Admin: 12/07/16 08:05 Dose: 2 ml Albuterol/Ipratropium (Duoneb 3 Mg/0.5 Mg (3 Ml) Ud) 3 ml INH RQID [facility] Last Admin: 12/07/16 11:41 Dose: 3 ml Guaifenesin (Robitussin) 200 mg PO Q6 PRN PRN Reason: Cough Heparin Sodium (Porcine) (Heparin) 5,000 units SC Q12 [facility] PRN Reason: Protocol Last Admin: 12/07/16 08:21 Dose: 5,000 units Piperacillin Sod/Tazobactam (Sod 3.375 gm/ Sodium Chloride) 100 mls @ 100 mls/ hr IVPB Q8 [facility] Last Admin: 12/07/16 08:25 Dose: 100 mls/hr Sodium Bicarbonate 75 meq/ (Dextrose) 1,075 mls @ 60 mls/hr IV .[id number] [facility] Stop: 12/07/16 16:54 Micafungin Sodium 100 mg/ (Sodium Chloride) 100 mls @ 100 mls/hr IVPB DAILY [facility] Last Admin: 12/07/16 08:23 Dose: 100 mls/hr Insulin Human Lispro (Humalog) 0 units SC Q6 [facility] PRN Reason: Protocol Last Admin: 12/07/16 11:07 Dose: Not Given Metronidazole (Flagyl) 500 mg PO Q8 [facility] Last Admin: 12/07/16 08:21 Dose: 500 mg Pantoprazole Sodium (Protonix Inj) 40 mg IVP DAILY [facility] Last Admin: 12/07/16 12:11 Dose: 40 mg Potassium Chloride (Potassium Chloride Oral Soln) 40 meq NG ONCE [facility]ARRY Last Admin: 12/06/16 12:58 Dose: 40 meq Sucralfate (Carafate Oral Susp) 1 gm PO QID [facility]ARRY Last Admin: 12/07/16 12:12 Dose: 1 gm - Labs Labs: 12/07/16 04:30 12/07/16 04:30 PT 17.0 Seconds (9.8-13.1) H 12/04/16 18:00 INR 1.6 (0.9-1.2) H 12/04/16 18:00 APTT 37.9 Seconds (25.6-37.1) H 12/04/16 17:17 - Constitutional Appears: Chronically Ill - Head Exam Head Exam: NORMAL INSPECTION - Eye Exam Eye Exam: PERRL - ENT Exam Additional comments: Intubated - Neck Exam Neck Exam: Normal Inspection - Respiratory Exam Respiratory Exam: Decreased Breath Sounds (b/l), Rhonchi (few at bases) - Cardiovascular Exam Cardiovascular Exam: REGULAR RHYTHM - GI/Abdominal Exam GI & Abdominal Exam: Soft, Normal Bowel Sounds - Extremities Exam Additional comments: Edema upper extremities - Back Exam Back Exam: NORMAL INSPECTION - Neurological Exam Neurological Exam: Awake Additional comments: Response to tactile stimuli, generalized weakness. - Psychiatric Exam Additional comments: Calm - Skin Skin Exam: Warm Assessment and Plan (1) Acute hypercapnic respiratory failure Status: Acute (2) Klebsiella pneumonia Status: Acute (3) Dehydration Status: Acute (4) Septic shock Status: Acute (5) Hyperkalemia Status: Acute (6) GEORGINA (acute kidney injury) Status: Acute (7) Type 2 diabetes mellitus with hyperglycemia Status: Chronic (8) HTN (hypertension) Status: Chronic (9) C. difficile colitis Status: Acute (10) Fungemia Status: Acute - Assessment and Plan (Free Text) Plan: Had PICC line insertion , on Micafungin for fungemia, Merren for Pneumonia as per ID continue attempt of weaning ICU Time: 39 min.
[2016-12-07] MEDS ORDERED: Lidocaine 1% Inj (20ml) ONE (14:03)
--- NOTE | 2016-12-07 14:29 | CP.PCM.PN ---
Subjective - Date & Time of Evaluation Date of Evaluation: 12/07/16 Time of Evaluation: 14:27 - Subjective Subjective: ID note- pt. seen and examined today in ICU. 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 blood cx from 12/04 from central line was reported as yeast yesterday and I started pt. on micafungin an advised for the TLC to be removed ALEKSANDR. pt. with low grade fever today , remains intubated, not on pressors. still has TLC line. Objective - Vital Signs/Intake and Output Vital Signs (last 24 hours): Temp Pulse Resp BP Pulse Ox 100.0 F H 89 10 L 125/68 94 L 12/07/16 12:00 12/07/16 12:00 12/07/16 12:00 12/07/16 12:00 12/07/16 12:00 Intake and Output: 12/07/16 12/07/16 06:59 18:59 Intake Total 1700 1050 Output Total 1450 700 Balance 250 350 - Medications Medications: Current Medications Acetylcysteine (Acetylcysteine 20%) 2 ml INH RBID [facility] Last Admin: 12/07/16 08:05 Dose: 2 ml Albuterol/Ipratropium (Duoneb 3 Mg/0.5 Mg (3 Ml) Ud) 3 ml INH RQID [facility] Last Admin: 12/07/16 11:41 Dose: 3 ml Guaifenesin (Robitussin) 200 mg PO Q6 PRN PRN Reason: Cough Heparin Sodium (Porcine) (Heparin) 5,000 units SC Q12 [facility] PRN Reason: Protocol Last Admin: 12/07/16 08:21 Dose: 5,000 units Piperacillin Sod/Tazobactam (Sod 3.375 gm/ Sodium Chloride) 100 mls @ 100 mls/ hr IVPB Q8 [facility] Last Admin: 12/07/16 08:25 Dose: 100 mls/hr Sodium Bicarbonate 75 meq/ (Dextrose) 1,075 mls @ 60 mls/hr IV .[id number] [facility] Stop: 12/07/16 16:54 Micafungin Sodium 100 mg/ (Sodium Chloride) 100 mls @ 100 mls/hr IVPB DAILY [facility] Last Admin: 12/07/16 08:23 Dose: 100 mls/hr Insulin Human Lispro (Humalog) 0 units SC Q6 [facility] PRN Reason: Protocol Last Admin: 12/07/16 11:07 Dose: Not Given Metronidazole (Flagyl) 500 mg PO Q8 [facility] Last Admin: 12/07/16 08:21 Dose: 500 mg Pantoprazole Sodium (Protonix Inj) 40 mg IVP DAILY [facility] Last Admin: 12/07/16 12:11 Dose: 40 mg Potassium Chloride (Potassium Chloride Oral Soln) 40 meq NG ONCE [facility] Last Admin: 12/06/16 12:58 Dose: 40 meq - Labs Labs: - Constitutional Appears: Chronically Ill - ENT Exam Additional comments: ET tube in place - Neck Exam Additional comments: supple - Respiratory Exam Additional comments: coarse breath sounds at bases intubated and on the vent - Cardiovascular Exam Cardiovascular Exam: RRR, +S1, +S2 - GI/Abdominal Exam GI & Abdominal Exam: Soft, Normal Bowel Sounds Additional comments: ND, NT - Extremities Exam Additional comments: dry b/l heel ulcers, no discharge - Neurological Exam Additional comments: intubated and sedated - Additional Findings Additional findings: Laboratory Results - last 72 hr 12/04/16 12/04/16 12/04/16 13:47 14:00 15:30 WBC RBC Hgb Hct MCV MCH MCHC RDW Plt Count PT INR APTT pCO2 pO2 HCO3 ABG pH ABG Total CO2 ABG O2 Saturation ABG O2 Content ABG Base Excess ABG Hemoglobin ABG Carboxyhemoglobin POC ABG HHb (Measured) ABG Methemoglobin ABG O2 Capacity Torres Test A-a O2 Difference Hgb O2 Saturation Vent Mode Mechanical Rate FiO2 Tidal Volume PEEP Sodium 152 H Potassium 3.8 Chloride 125 H Carbon Dioxide 18 L Anion Gap 13 BUN 27 H Creatinine 2.1 H Est GFR ( Amer) 38 Est GFR (Non-Af Amer) 31 POC Glucose (mg/dL) Random Glucose 242 H Lactic Acid Calcium 7.4 L Phosphorus 4.4 Magnesium 1.9 1.9 Total Bilirubin 0.2 AST 19 ALT 22 Alkaline Phosphatase 191 H D Total Protein 5.8 L Albumin 1.9 L Globulin 3.9 Albumin/Globulin Ratio 0.5 L Procalcitonin 2.07 H Blood Type Antibody Screen Crossmatch BBK History Checked 12/04/16 12/04/16 12/04/16 15:45 15:46 17:17 WBC RBC Hgb Hct MCV MCH MCHC RDW Plt Count PT INR APTT 37.9 H pCO2 pO2 HCO3 ABG pH ABG Total CO2 ABG O2 Saturation ABG O2 Content ABG Base Excess ABG Hemoglobin ABG Carboxyhemoglobin POC ABG HHb (Measured) ABG Methemoglobin ABG O2 Capacity Torres Test A-a O2 Difference Hgb O2 Saturation Vent Mode Mechanical Rate FiO2 Tidal Volume PEEP Sodium Potassium Chloride Carbon Dioxide Anion Gap BUN Creatinine Est GFR ( Amer) Est GFR (Non-Af Amer) POC Glucose (mg/dL) 278 H Random Glucose Lactic Acid Calcium Phosphorus Magnesium Total Bilirubin AST ALT Alkaline Phosphatase Total Protein Albumin Globulin Albumin/Globulin Ratio Procalcitonin Blood Type A POSITIVE Antibody Screen Negative Crossmatch See Detail BBK History Checked Patient has bt 12/04/16 12/05/16 12/05/16 18:00 05:35 06:25 WBC RBC Hgb Hct MCV MCH MCHC RDW Plt Count PT 17.0 H INR 1.6 H APTT pCO2 32 L pO2 187 H HCO3 20.3 L ABG pH 7.37 ABG Total CO2 19.5 L ABG O2 Saturation 99.9 H ABG O2 Content 13.8 L ABG Base Excess -6.0 L ABG Hemoglobin 9.8 L ABG Carboxyhemoglobin 1.1 POC ABG HHb (Measured) 0.1 ABG Methemoglobin 1.6 ABG O2 Capacity 13.8 L Torres Test Yes A-a O2 Difference 201.0 Hgb O2 Saturation 97.3 Vent Mode Prvc/ac Mechanical Rate 16 FiO2 60.0 Tidal Volume 450 PEEP 5 Sodium Potassium Chloride Carbon Dioxide Anion Gap BUN Creatinine Est GFR ( Amer) Est GFR (Non-Af Amer) POC Glucose (mg/dL) Random Glucose Lactic Acid 1.1 Calcium Phosphorus Magnesium Total Bilirubin AST ALT Alkaline Phosphatase Total Protein Albumin Globulin Albumin/Globulin Ratio Procalcitonin Blood Type Antibody Screen Crossmatch BBK History Checked 12/05/16 12/05/16 12/05/16 06:25 06:25 06:52 WBC 11.4 H RBC 3.29 L Hgb 9.7 L D Hct 29.5 L MCV 89.6 D MCH 29.5 MCHC 32.9 L RDW 17.2 H Plt Count 150 PT INR APTT pCO2 pO2 HCO3 ABG pH ABG Total CO2 ABG O2 Saturation ABG O2 Content ABG Base Excess ABG Hemoglobin ABG Carboxyhemoglobin POC ABG HHb (Measured) ABG Methemoglobin ABG O2 Capacity Torres Test A-a O2 Difference Hgb O2 Saturation Vent Mode Mechanical Rate FiO2 Tidal Volume PEEP Sodium 155 H Potassium 3.2 L Chloride 127 H Carbon Dioxide 19 L Anion Gap 12 BUN 30 H Creatinine 1.9 H Est GFR ( Amer) 43 Est GFR (Non-Af Amer) 35 POC Glucose (mg/dL) 93 Random Glucose 94 Lactic Acid Calcium 7.8 L Phosphorus Magnesium Total Bilirubin 0.5 AST 17 ALT 23 Alkaline Phosphatase 222 H Total Protein 6.4 Albumin 2.1 L Globulin 4.2 H Albumin/Globulin Ratio 0.5 L Procalcitonin Blood Type Antibody Screen Crossmatch BBK History Checked 12/05/16 12/05/16 12/05/16 11:33 16:27 21:13 WBC RBC Hgb Hct MCV MCH MCHC RDW Plt Count PT INR APTT pCO2 pO2 HCO3 ABG pH ABG Total CO2 ABG O2 Saturation ABG O2 Content ABG Base Excess ABG Hemoglobin ABG Carboxyhemoglobin POC ABG HHb (Measured) ABG Methemoglobin ABG O2 Capacity Torres Test A-a O2 Difference Hgb O2 Saturation Vent Mode Mechanical Rate FiO2 Tidal Volume PEEP Sodium Potassium Chloride Carbon Dioxide Anion Gap BUN Creatinine Est GFR ( Amer) Est GFR (Non-Af Amer) POC Glucose (mg/dL) 92 137 H 190 H Random Glucose Lactic Acid Calcium Phosphorus Magnesium Total Bilirubin AST ALT Alkaline Phosphatase Total Protein Albumin Globulin Albumin/Globulin Ratio Procalcitonin Blood Type Antibody Screen Crossmatch BBK History Checked 12/06/16 12/06/16 12/06/16 05:18 05:31 06:45 WBC 6.0 RBC 2.60 L Hgb 7.4 L D Hct 22.2 L MCV 85.4 D MCH 28.4 MCHC 33.3 RDW 18.9 H Plt Count 153 PT INR APTT pCO2 33 L pO2 205 H HCO3 20.2 L ABG pH 7.36 ABG Total CO2 19.6 L ABG O2 Saturation 100.3 H ABG O2 Content 13.1 L ABG Base Excess -6.1 L ABG Hemoglobin 9.2 L ABG Carboxyhemoglobin 1.2 POC ABG HHb (Measured) -0.3 L ABG Methemoglobin 1.8 ABG O2 Capacity 13.1 L Torres Test Yes A-a O2 Difference 110.0 Hgb O2 Saturation 97.2 Vent Mode A/c Mechanical Rate 12 FiO2 50.0 Tidal Volume 450 PEEP 5 Sodium 146 Potassium 3.2 L Chloride 122 H Carbon Dioxide 16 L Anion Gap 11 BUN 30 H Creatinine 1.8 H Est GFR ( Amer) 45 Est GFR (Non-Af Amer) 37 POC Glucose (mg/dL) Random Glucose 144 H Lactic Acid Calcium 7.6 L Phosphorus Magnesium Total Bilirubin AST ALT Alkaline Phosphatase Total Protein Albumin Globulin Albumin/Globulin Ratio Procalcitonin Blood Type Antibody Screen Crossmatch BBK History Checked 12/06/16 12/06/16 12/06/16 06:52 11:09 15:49 WBC RBC Hgb Hct MCV MCH MCHC RDW Plt Count PT INR APTT pCO2 pO2 HCO3 ABG pH ABG Total CO2 ABG O2 Saturation ABG O2 Content ABG Base Excess ABG Hemoglobin ABG Carboxyhemoglobin POC ABG HHb (Measured) ABG Methemoglobin ABG O2 Capacity Torres Test A-a O2 Difference Hgb O2 Saturation Vent Mode Mechanical Rate FiO2 Tidal Volume PEEP Sodium Potassium Chloride Carbon Dioxide Anion Gap BUN Creatinine Est GFR ( Amer) Est GFR (Non-Af Amer) POC Glucose (mg/dL) 161 H 143 H 192 H Random Glucose Lactic Acid Calcium Phosphorus Magnesium Total Bilirubin AST ALT Alkaline Phosphatase Total Protein Albumin Globulin Albumin/Globulin Ratio Procalcitonin Blood Type Antibody Screen Crossmatch BBK History Checked 12/06/16 12/07/16 12/07/16 20:57 04:30 04:30 WBC 7.5 RBC 2.78 L Hgb 8.2 L Hct 25.0 L MCV 89.9 D MCH 29.6 MCHC 32.9 L RDW 17.1 H Plt Count 103 L D PT INR APTT pCO2 pO2 HCO3 ABG pH ABG Total CO2 ABG O2 Saturation ABG O2 Content ABG Base Excess ABG Hemoglobin ABG Carboxyhemoglobin POC ABG HHb (Measured) ABG Methemoglobin ABG O2 Capacity Torres Test A-a O2 Difference Hgb O2 Saturation Vent Mode Mechanical Rate FiO2 Tidal Volume PEEP Sodium 143 Potassium 3.7 Chloride 115 H Carbon Dioxide 20 L Anion Gap 12 BUN 31 H Creatinine 1.5 Est GFR ( Amer) 56 Est GFR (Non-Af Amer) 46 POC Glucose (mg/dL) 184 H Random Glucose 161 H Lactic Acid Calcium 7.1 L Phosphorus 2.0 L Magnesium 1.6 Total Bilirubin 0.4 AST 24 ALT 21 Alkaline Phosphatase 572 H D Total Protein 5.8 L Albumin 1.9 L Globulin 3.8 Albumin/Globulin Ratio 0.5 L Procalcitonin Blood Type Antibody Screen Crossmatch BBK History Checked 12/07/16 12/07/16 12/07/16 05:28 06:46 11:02 WBC RBC Hgb Hct MCV MCH MCHC RDW Plt Count PT INR APTT pCO2 30 L pO2 163 H HCO3 23.4 ABG pH 7.46 H ABG Total CO2 22.2 ABG O2 Saturation 100.4 H ABG O2 Content 12.2 L ABG Base Excess -2.0 ABG Hemoglobin 8.6 L ABG Carboxyhemoglobin 1.1 POC ABG HHb (Measured) -0.4 L ABG Methemoglobin 1.1 ABG O2 Capacity 12.2 L Torres Test Yes A-a O2 Difference 85.0 Hgb O2 Saturation 98.1 H Vent Mode A/c Mechanical Rate 12 FiO2 40.0 Tidal Volume 450 PEEP 5 Sodium Potassium Chloride Carbon Dioxide Anion Gap BUN Creatinine Est GFR ( Amer) Est GFR (Non-Af Amer) POC Glucose (mg/dL) 183 H 150 H Random Glucose Lactic Acid Calcium Phosphorus Magnesium Total Bilirubin AST ALT Alkaline Phosphatase Total Protein Albumin Globulin Albumin/Globulin Ratio Procalcitonin Blood Type Antibody Screen Crossmatch BBK History Checked Microbiology 12/04/16 00:10 Blood-Venous Blood Culture - Preliminary NO GROWTH AFTER 3 DAYS 12/04/16 00:10 Blood-Venous Blood Culture - Preliminary NO GROWTH AFTER 3 DAYS 12/04/16 14:00 Blood Blood Culture - Preliminary Yeast Species 12/04/16 14:00 Blood Gram Stain - Final 12/04/16 18:00 Blood-Thru Central Line Blood Culture - Preliminary Yeast Species 12/04/16 18:00 Blood-Thru Central Line Gram Stain - Final 12/04/16 16:50 Urine,Triplett Urine Culture - Final Yeast Species 12/04/16 17:00 Trachasp Sputum Culture - Final NORMAL ORAL ROSEMARY 12/04/16 18:00 Naris MRSA Culture (Admit) - Final MRSA DETECTED 12/04/16 02:05 Urine,Triplett Urine Culture - Final Yeast Species 11/26/16 20:01 Nose MRSA Culture (Admit) - Final MRSA NOT DETECTED 11/20/16 10:00 Blood-Venous Blood Culture - Final NO GROWTH AFTER 5 DAYS 11/20/16 10:00 Blood-Venous Gram Stain - Final TEST NOT PERFORMED 11/21/16 10:00 Trachasp Gram Stain - Final 11/21/16 10:00 Trachasp Sputum Culture - Final Klebsiella Pneumoniae Ssp Pneu 11/20/16 15:00 Nose MRSA Culture (Admit) - Final MRSA NOT DETECTED 11/20/16 01:57 Urine,Triplett Urine Culture - Final No Growth (<1,000 CFU/ML) Accession No. : [id number] Patient Name / ID : GRACE ANTON / [id number] Exam Date : 12/06/2016 07:18:16 ( Approved ) Study Comment : Sex / Age : M / [id number] Creator : Manfred Strickland MD Dictator : Manfred Strickland MD Foreign Policy Officer : Switching Operator : Manfred Strickland MD Approver2 : Report Date : 12/06/2016 10:48:27 My Comment : HISTORY: intubated COMPARISON: No prior. FINDINGS: In situ ETT, tip of which lies approximately 5.8 cm above shira. Left IJ central venous line with tip in the SVC unchanged. LUNGS: Re- demonstrated are mild diffuse bilateral infiltrates again noted that may represent pneumonia or pulmonary edema/CHF with questionable slight improvement. Small right-sided effusion. Questionable tiny left effusion PLEURA: As above. No pneumothorax apparent. CARDIOVASCULAR: Normal. OSSEOUS STRUCTURES: No significant abnormalities. VISUALIZED UPPER ABDOMEN: Normal. OTHER FINDINGS: None. IMPRESSION: Re- demonstrated are mild diffuse bilateral infiltrates again noted that may represent pneumonia or pulmonary edema/CHF with questionable slight improvement. Small right-sided effusion. Questionable tiny left effusion Assessment and Plan (1) Respiratory failure Status: Acute (2) Septic shock Status: Acute (3) GEORGINA (acute kidney injury) Status: Acute (4) Leukocytosis Status: Acute - Assessment and Plan (Free Text) Assessment: A/P- 71 year old male from [place] with multiple medical conditions including DM II, HTN, previous e.fecalis bacteremia in 10/2016, h/o right third toe amputation for OM admitted with sob and hypoxemia and is intubated and on pressors. 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 low grade temp normal wbc count blood cx from 12/04/2016- yeast from both central line and peripheral and urine cx- yeast (new) previous sputum cx from trach- Klebsiella brower sensitive + stool c.diff. repeat stool c.diff- negative tox and AG cxr-Right effusion and ? infiltrate as per report pneumonia pleural effusion resp distress fungemia Plan- has completed 14 days of Iv zosyn for pneumonia . advise to d/c zosyn today. advise to d/c TLC today and would advise at least 24 hours of being central line or picc line free to sterilize the blood with the antifungal medication prior to placing any central line again. continue with micafungin , day #2 today. advise to also start pt. on IV meropenem in light of new resp distress and ? infiltrtaes. await repeat blood cx from peripheral x 2. check another TTE in light of fungemia to rule out vegetation. advise optho eval in light of the fungemia as well. continue with flagyl VIA OG or NGT for previous pos c.diff. all above d/w ICU nurse at length. ICU time 45 minutes.
--- NOTE | 2016-12-07 14:36 | CP.CCUPN ---
CCU Subjective - Physician Review Events Since Last Encounter (Free Text): 12/07/16 14:21 alert on vent, following commands. CCU Objective - Vital Signs / Intake & Output Vital Signs (Last 4 hours): Vital Signs Temp Pulse Resp BP Pulse Ox 12/07/16 12:00 100.0 F H 89 10 L 125/68 94 L Intake and Output (Last 8hrs): Intake & Output 12/06/16 12/07/16 12/07/16 22:59 06:59 14:59 Intake Total 2580 1380 1050 Output Total 1550 1450 700 Balance 1030 -70 350 Intake: IV 900 600 300 Intake, Piggyback 100 200 Tube Feeding 1280 480 400 Free Water Flush 300 300 150 Output: Urine 1400 1450 700 Urethral (No) 1400 1450 700 Stool 150 - Physical Exam Head: Positive for: Normocephalic Pupils: Positive for: PERRL Extroacular Muscles: Positive for: EOMI. Negative for: Gaze Palsy Conjunctiva: Negative for: Injected, Icteric Mouth: Positive for: Moist Mucous Membranes Neck: Negative for: Meningeal Signs, JVD, Lymphadenopathy Respiratory/Chest: Positive for: Decreased Breath Sounds. Negative for: Wheezes , Rhonchi Cardiovascular: Positive for: Regular Rate and Rhythm. Negative for: Murmurs, Rub Abdomen: Positive for: Normal Bowel Sounds. Negative for: Tenderness, Distention Lower Extremity: Positive for: Edema. Negative for: CALF TENDERNESS, Cyanosis Neurological: Positive for: Norm Deep Tendon Reflexes Skin: Positive for: Warm. Negative for: Rashes Psychiatric: Positive for: Alert, Lethargic - Medications Active Medications: Active Medications Generic Name Dose Route Start Last Admin Trade Name Freq PRN Reason Stop Dose Admin Acetylcysteine 2 ml 11/27/16 20:00 12/07/16 08:05 Acetylcysteine 20% INH 2 ml RBID LARRY Administration Albuterol/Ipratropium 3 ml 11/20/16 12:00 12/07/16 11:41 Duoneb 3 Mg/0.5 Mg (3 Ml) Ud INH 3 ml RQID LARRY Administration Guaifenesin 200 mg 12/06/16 18:47 Robitussin PO Q6 PRN Cough Heparin Sodium (Porcine) 5,000 units 12/06/16 21:00 12/07/16 08:21 Heparin SC 5,000 units Q12 LARRY Administration Protocol Piperacillin Sod/Tazobactam 100 mls @ 100 mls/hr 12/05/16 17:45 12/07/16 08: 25 Sod 3.375 gm/ Sodium Chloride IVPB 100 mls/hr Q8 LARRY Administration Sodium Bicarbonate 75 meq/ 1,075 mls @ 60 mls/hr 12/06/16 16:52 Dextrose IV 12/07/16 16:54 .[id number] LARRY Micafungin Sodium 100 mg/ 100 mls @ 100 mls/hr 12/06/16 20:45 12/07/16 08:23 Sodium Chloride IVPB 100 mls/hr DAILY LARRY Administration Insulin Human Lispro 0 units 12/06/16 22:00 12/07/16 11:07 Humalog SC Not Given Q6 [facility] Protocol Metronidazole 500 mg 11/27/16 11:00 12/07/16 08:21 Flagyl PO 500 mg Q8 LARRY Administration Pantoprazole Sodium 40 mg 11/20/16 09:00 12/07/16 12:11 Protonix Inj IVP 40 mg DAILY LARRY Administration Potassium Chloride 40 meq 12/06/16 12:00 12/06/16 12:58 Potassium Chloride Oral Soln NG 40 meq ONCE LARRY Administration - Patient Studies Lab Studies: Microbiology Studies 12/04/16 00:10 Blood Culture - Preliminary Blood-Venous NO GROWTH AFTER 3 DAYS 12/04/16 00:10 Blood Culture - Preliminary Blood-Venous NO GROWTH AFTER 3 DAYS 12/04/16 14:00 Blood Culture - Preliminary Blood Yeast Species Gram Stain - Final 12/04/16 18:00 Blood Culture - Preliminary Blood-Thru Central Line Yeast Species Gram Stain - Final 12/04/16 16:50 Urine Culture - Final Urine,No Yeast Species 12/04/16 17:00 Sputum Culture - Final Trachasp NORMAL ORAL ROSEMARY Lab Studies 12/07/16 12/07/16 12/07/16 Range/Units 11:02 06:46 05:28 WBC (4.8-10.8) K/uL RBC (4.40-5.90) Mil/uL Hgb (12.0-18.0) g/dL Hct (35.0-51.0) % MCV (80.0-94.0) fl MCH (27.0-31.0) pg MCHC (33.0-37.0) g/dL RDW (11.5-14.5) % Plt Count (130-400) K/uL pCO2 30 L (35-45) mm/Hg pO2 163 H (80-100) mm/Hg HCO3 23.4 (21-28) mmol/L ABG pH 7.46 H (7.35-7.45) ABG Total CO2 22.2 (22-28) mmol/L ABG O2 Saturation 100.4 H (95-98) % ABG O2 Content 12.2 L (15-23) ML/dL ABG Base Excess -2.0 (-2.0-3.0) mmol/L ABG Hemoglobin 8.6 L (11.7-17.4) g/dL ABG Carboxyhemoglobin 1.1 (0.5-1.5) % POC ABG HHb (Measured) -0.4 L (0.0-5.0) % ABG Methemoglobin 1.1 (0.0-3.0) % ABG O2 Capacity 12.2 L (16-24) mL/dL Torres Test Yes A-a O2 Difference 85.0 mm/Hg Hgb O2 Saturation 98.1 H (95.0-98.0) % Vent Mode A/c Mechanical Rate 12 FiO2 40.0 % Tidal Volume 450 PEEP 5 Sodium (132-148) mmol/l Potassium (3.6-5.0) MMOL/L Chloride (98-107) mmol/L Carbon Dioxide (22-30) mmol/L Anion Gap (10-20) BUN (9-20) mg/dl Creatinine (0.8-1.5) mg/dL Est GFR ( Amer) Est GFR (Non-Af Amer) POC Glucose (mg/dL) 150 H 183 H (65-110) mg/dL Random Glucose (75-110) mg/dL Calcium (8.4-10.2) mg/dL Phosphorus (2.5-4.5) mg/dl Magnesium (1.6-2.3) MG/DL Total Bilirubin (0.2-1.3) mg/dl AST (17-59) U/L ALT (21-72) U/L Alkaline Phosphatase (38-126) U/L Total Protein (6.3-8.2) G/DL Albumin (3.5-5.0) g/dL Globulin (2.2-3.9) gm/dL Albumin/Globulin Ratio (1.0-2.1) 12/07/16 12/07/16 12/06/16 Range/Units 04:30 04:30 20:57 WBC 7.5 (4.8-10.8) K/uL RBC 2.78 L (4.40-5.90) Mil/uL Hgb 8.2 L (12.0-18.0) g/dL Hct 25.0 L (35.0-51.0) % MCV 89.9 D (80.0-94.0) fl MCH 29.6 (27.0-31.0) pg MCHC 32.9 L (33.0-37.0) g/dL RDW 17.1 H (11.5-14.5) % Plt Count 103 L D (130-400) K/uL pCO2 (35-45) mm/Hg pO2 (80-100) mm/Hg HCO3 (21-28) mmol/L ABG pH (7.35-7.45) ABG Total CO2 (22-28) mmol/L ABG O2 Saturation (95-98) % ABG O2 Content (15-23) ML/dL ABG Base Excess (-2.0-3.0) mmol/L ABG Hemoglobin (11.7-17.4) g/dL ABG Carboxyhemoglobin (0.5-1.5) % POC ABG HHb (Measured) (0.0-5.0) % ABG Methemoglobin (0.0-3.0) % ABG O2 Capacity (16-24) mL/dL Torres Test A-a O2 Difference mm/Hg Hgb O2 Saturation (95.0-98.0) % Vent Mode Mechanical Rate FiO2 % Tidal Volume PEEP Sodium 143 (132-148) mmol/l Potassium 3.7 (3.6-5.0) MMOL/L Chloride 115 H (98-107) mmol/L Carbon Dioxide 20 L (22-30) mmol/L Anion Gap 12 (10-20) BUN 31 H (9-20) mg/dl Creatinine 1.5 (0.8-1.5) mg/dL Est GFR ( Amer) 56 Est GFR (Non-Af Amer) 46 POC Glucose (mg/dL) 184 H (65-110) mg/dL Random Glucose 161 H (75-110) mg/dL Calcium 7.1 L (8.4-10.2) mg/dL Phosphorus 2.0 L (2.5-4.5) mg/dl Magnesium 1.6 (1.6-2.3) MG/DL Total Bilirubin 0.4 (0.2-1.3) mg/dl AST 24 (17-59) U/L ALT 21 (21-72) U/L Alkaline Phosphatase 572 H D (38-126) U/L Total Protein 5.8 L (6.3-8.2) G/DL Albumin 1.9 L (3.5-5.0) g/dL Globulin 3.8 (2.2-3.9) gm/dL Albumin/Globulin Ratio 0.5 L (1.0-2.1) 12/06/16 Range/Units 15:49 WBC (4.8-10.8) K/uL RBC (4.40-5.90) Mil/uL Hgb (12.0-18.0) g/dL Hct (35.0-51.0) % MCV (80.0-94.0) fl MCH (27.0-31.0) pg MCHC (33.0-37.0) g/dL RDW (11.5-14.5) % Plt Count (130-400) K/uL pCO2 (35-45) mm/Hg pO2 (80-100) mm/Hg HCO3 (21-28) mmol/L ABG pH (7.35-7.45) ABG Total CO2 (22-28) mmol/L ABG O2 Saturation (95-98) % ABG O2 Content (15-23) ML/dL ABG Base Excess (-2.0-3.0) mmol/L ABG Hemoglobin (11.7-17.4) g/dL ABG Carboxyhemoglobin (0.5-1.5) % POC ABG HHb (Measured) (0.0-5.0) % ABG Methemoglobin (0.0-3.0) % ABG O2 Capacity (16-24) mL/dL Torres Test A-a O2 Difference mm/Hg Hgb O2 Saturation (95.0-98.0) % Vent Mode Mechanical Rate FiO2 % Tidal Volume PEEP Sodium (132-148) mmol/l Potassium (3.6-5.0) MMOL/L Chloride (98-107) mmol/L Carbon Dioxide (22-30) mmol/L Anion Gap (10-20) BUN (9-20) mg/dl Creatinine (0.8-1.5) mg/dL Est GFR ( Amer) Est GFR (Non-Af Amer) POC Glucose (mg/dL) 192 H (65-110) mg/dL Random Glucose (75-110) mg/dL Calcium (8.4-10.2) mg/dL Phosphorus (2.5-4.5) mg/dl Magnesium (1.6-2.3) MG/DL Total Bilirubin (0.2-1.3) mg/dl AST (17-59) U/L ALT (21-72) U/L Alkaline Phosphatase (38-126) U/L Total Protein (6.3-8.2) G/DL Albumin (3.5-5.0) g/dL Globulin (2.2-3.9) gm/dL Albumin/Globulin Ratio (1.0-2.1) Laboratory Results - last 24 hr 12/06/16 12/06/16 12/07/16 15:49 20:57 04:30 WBC RBC Hgb Hct MCV MCH MCHC RDW Plt Count pCO2 pO2 HCO3 ABG pH ABG Total CO2 ABG O2 Saturation ABG O2 Content ABG Base Excess ABG Hemoglobin ABG Carboxyhemoglobin POC ABG HHb (Measured) ABG Methemoglobin ABG O2 Capacity Torres Test A-a O2 Difference Hgb O2 Saturation Vent Mode Mechanical Rate FiO2 Tidal Volume PEEP Sodium 143 Potassium 3.7 Chloride 115 H Carbon Dioxide 20 L Anion Gap 12 BUN 31 H Creatinine 1.5 Est GFR ( Amer) 56 Est GFR (Non-Af Amer) 46 POC Glucose (mg/dL) 192 H 184 H Random Glucose 161 H Calcium 7.1 L Phosphorus 2.0 L Magnesium 1.6 Total Bilirubin 0.4 AST 24 ALT 21 Alkaline Phosphatase 572 H D Total Protein 5.8 L Albumin 1.9 L Globulin 3.8 Albumin/Globulin Ratio 0.5 L 12/07/16 12/07/16 12/07/16 04:30 05:28 06:46 WBC 7.5 RBC 2.78 L Hgb 8.2 L Hct 25.0 L MCV 89.9 D MCH 29.6 MCHC 32.9 L RDW 17.1 H Plt Count 103 L D pCO2 30 L pO2 163 H HCO3 23.4 ABG pH 7.46 H ABG Total CO2 22.2 ABG O2 Saturation 100.4 H ABG O2 Content 12.2 L ABG Base Excess -2.0 ABG Hemoglobin 8.6 L ABG Carboxyhemoglobin 1.1 POC ABG HHb (Measured) -0.4 L ABG Methemoglobin 1.1 ABG O2 Capacity 12.2 L Torres Test Yes A-a O2 Difference 85.0 Hgb O2 Saturation 98.1 H Vent Mode A/c Mechanical Rate 12 FiO2 40.0 Tidal Volume 450 PEEP 5 Sodium Potassium Chloride Carbon Dioxide Anion Gap BUN Creatinine Est GFR ( Amer) Est GFR (Non-Af Amer) POC Glucose (mg/dL) 183 H Random Glucose Calcium Phosphorus Magnesium Total Bilirubin AST ALT Alkaline Phosphatase Total Protein Albumin Globulin Albumin/Globulin Ratio 12/07/16 11:02 WBC RBC Hgb Hct MCV MCH MCHC RDW Plt Count pCO2 pO2 HCO3 ABG pH ABG Total CO2 ABG O2 Saturation ABG O2 Content ABG Base Excess ABG Hemoglobin ABG Carboxyhemoglobin POC ABG HHb (Measured) ABG Methemoglobin ABG O2 Capacity Torres Test A-a O2 Difference Hgb O2 Saturation Vent Mode Mechanical Rate FiO2 Tidal Volume PEEP Sodium Potassium Chloride Carbon Dioxide Anion Gap BUN Creatinine Est GFR ( Amer) Est GFR (Non-Af Amer) POC Glucose (mg/dL) 150 H Random Glucose Calcium Phosphorus Magnesium Total Bilirubin AST ALT Alkaline Phosphatase Total Protein Albumin Globulin Albumin/Globulin Ratio Fingerstick Blood Sugar Results: 150 Review of Systems - Review of Systems Systems not reviewed;Unavailable: Intubated Critical Care Progress Note - Ventilator Checklist Head of Bed 30 Degrees: Yes Daily Sedation Vacation: Yes Daily Assessment of Readiness to Wean: Yes Daily Spontaneous Breathing Trial: Yes PUD Prophalyxis: Yes DVT Prophylaxis: Yes Assessment/Plan (1) Pneumonia Assessment and plan: 71yo M. PMHx DM type 2, HTN, hyperlipidemia, CKD, osteomyelitis of right foot, vascular necrosis of the right hip, atrial fibrillation, pvd, anemia of chronic disease. (11/20) intubated for AMS secondary to sepsis. Extubated. Reintubate Neuro: alert, follows some commands Pulm: acute respiratory failure secondary to aspiration pneumonia, intubated on vent. duonebs qid, abx. CV: hemodynamically stable Hem: no acute issues Renal: no acute issues, urine output wnl, stopping fluids. Endo: DM type 2. short acting insulin sliding scale q6h for coverage. GI: Glucerna@80, Free water 150ml q6h. ID: severe sepsis from UTI and aspiration pneumonia with Klebsiella pneumoniae, continue Zosyn, and c.diff colitis, continue Flagyl po. DVT proph - heparin sq GI proph - protonix IV no for strict I/O's during acute illness Code status - full code Critical Care Time spent 35 minutes Multi-disciplinary rounds were performed with house staff, nursing, speech therapy, respiratory therapy, pharmacy and nutrition with integrated input from the primary team/attending and other consulting services. The documented time is cumulative and includes review of patient data/exams/labs/chart review and examination of the patient on rounds and throughout the day; time is exclusive of any procedures or teaching time.d (12/04). Current Visit: Yes Status: Acute Priority: High
--- NOTE | 2016-12-07 14:40 | PCM.SURG1 ---
Surgeon's Initial Post Op Note - Surgeon's Notes Surgeon: Lambert López MD Methods Examiner: NONE Type of Anesthesia: Local Pre-Operative Diagnosis: Infection Operative Findings: Patent right basilic vein. Post-Operative Diagnosis: Infection Operation Performed: Double lumen picc placement right basilic vein, 42 cm. Tip in SVC. Specimen/Specimens Removed: none Estimated Blood Loss: EBL {In ML}: 2 Blood Products Given: N/A Drains Used: No Drains Post-Op Condition: Poor Date of Surgery/Procedure: 12/07/16 Time of Surgery/Procedure: 14:35
--- NOTE | 2016-12-07 15:00 | CP.PCM.PN ---
Subjective - Date & Time of Evaluation Date of Evaluation: 12/07/16 Time of Evaluation: 14:57 - Subjective Subjective: RENAL FOLLOW UP NOTE no events overnight Objective - Vital Signs/Intake and Output Vital Signs (last 24 hours): Temp Pulse Resp BP Pulse Ox 100.0 F H 92 H 18 120/62 94 L 12/07/16 12:00 12/07/16 14:44 12/07/16 14:44 12/07/16 14:44 12/07/16 12:00 Intake and Output: 12/07/16 12/07/16 06:59 18:59 Intake Total 1700 1050 Output Total 1450 700 Balance 250 350 - Medications Medications: Current Medications Acetylcysteine (Acetylcysteine 20%) 2 ml INH RBID [facility] Last Admin: 12/07/16 08:05 Dose: 2 ml Albuterol/Ipratropium (Duoneb 3 Mg/0.5 Mg (3 Ml) Ud) 3 ml INH RQID [facility] Last Admin: 12/07/16 11:41 Dose: 3 ml Guaifenesin (Robitussin) 200 mg PO Q6 PRN PRN Reason: Cough Heparin Sodium (Porcine) (Heparin) 5,000 units SC Q12 LARRY PRN Reason: Protocol Last Admin: 12/07/16 08:21 Dose: 5,000 units Sodium Bicarbonate 75 meq/ (Dextrose) 1,075 mls @ 60 mls/hr IV .[id number] [facility] Stop: 12/07/16 16:54 Micafungin Sodium 100 mg/ (Sodium Chloride) 100 mls @ 100 mls/hr IVPB DAILY [facility] Last Admin: 12/07/16 08:23 Dose: 100 mls/hr Meropenem 1 gm/ Sodium (Chloride) 100 mls @ 100 mls/hr IVPB Q12 [facility] Insulin Human Lispro (Humalog) 0 units SC Q6 LARRY PRN Reason: Protocol Last Admin: 12/07/16 11:07 Dose: Not Given Metronidazole (Flagyl) 500 mg PO Q8 [facility] Last Admin: 12/07/16 08:21 Dose: 500 mg Pantoprazole Sodium (Protonix Inj) 40 mg IVP DAILY [facility] Last Admin: 12/07/16 12:11 Dose: 40 mg Potassium Chloride (Potassium Chloride Oral Soln) 40 meq NG ONCE [facility] Last Admin: 12/06/16 12:58 Dose: 40 meq - Labs Labs: 12/07/16 04:30 12/07/16 04:30 PT 17.0 Seconds (9.8-13.1) H 12/04/16 18:00 INR 1.6 (0.9-1.2) H 12/04/16 18:00 APTT 37.9 Seconds (25.6-37.1) H 12/04/16 17:17 - Constitutional Appears: Other (intubated ) - Head Exam Head Exam: NORMAL INSPECTION - ENT Exam ENT Exam: Mucous Membranes Moist Additional comments: ETT+ - Respiratory Exam Additional comments: vent dep - Cardiovascular Exam Cardiovascular Exam: +S1, +S2 - GI/Abdominal Exam GI & Abdominal Exam: Soft - Neurological Exam Additional comments: alert oriented X0 - Skin Skin Exam: Dry Assessment and Plan - Assessment and Plan (Free Text) Plan: GEORGINA/ATN/hypernatremia/hypokalemia/acute resp failure/dm/acidosis/sepsis/pnemonia non oliguric, continue to monitor I&Os continue current fluids, sodium is improving anemia: transfuse prn per icu abx per icu, dose for reduced renal function
[2016-12-07] MEDS ORDERED: Sodium Bicarbonate 8.4% 75 MEQ in Dextrose 5% In Water 1,000 ML IV SCH (23:40)
[2016-12-08 05:06] LABS: ABG ALLEN TEST YES; ABG MECHANICAL RATE 12; ARTERIAL BLOOD GAS HCO3 26.3 mmol/L (21-28); ARTERIAL BLOOD GAS MODE A/C; ARTERIAL BLOOD GAS O2 CAPACITY 12.5 mL/dL (16-24); ARTERIAL BLOOD GAS O2 CONTENT 12.5 ML/dL (15-23); ARTERIAL BLOOD GAS PH 7.54 (7.35-7.45); ARTERIAL BLOOD GAS PO2 157 mm/Hg (80-100); ARTERIAL BLOOD HGB O2 SAT 97.1 % (95.0-98.0); ATERIAL BLOOD GAS PEEP 5; CARBOXYHEMOGLOBIN 1.3 % (0.5-1.5); HHB -0.4 % (0.0-5.0); METHEMOGLOBIN 2.1 % (0.0-3.0)
[2016-12-08 05:28] LABS: HEMATOCRIT 24.9 % (35.0-51.0); MEAN CELL VOLUME 89.6 fl (80.0-94.0); MEAN CORPUSCULAR HEMOGLOBIN 29.8 pg (27.0-31.0); MEAN CORPUSCULAR HGB CONC 33.3 g/dL (33.0-37.0); RED CELL DISTRIBUTION WIDTH 16.4 % (11.5-14.5)
[2016-12-08 05:36] LABS: ALB/GLOB RATIO 0.5 (1.0-2.1); ALKALINE PHOSPHATASE 672 U/L (38-126); ALT/SGPT 22 U/L (21-72); AST/SGOT 26 U/L (17-59); BILIRUBIN,TOTAL 0.5 mg/dl (0.2-1.3); BLOOD UREA NITROGEN 32 mg/dl (9-20); CALCIUM 7.2 mg/dL (8.4-10.2); CARBON DIOXIDE 23 mmol/L (22-30); CHLORIDE 110 mmol/L (98-107); GFR AFRICAN-AMERICAN > 60; GLUCOSE,RANDOM 124 mg/dL (75-110); MAGNESIUM 1.6 MG/DL (1.6-2.3); PHOSPHOROUS 2.4 mg/dl (2.5-4.5); POTASSIUM 3.5 MMOL/L (3.6-5.0); SODIUM 141 mmol/l (132-148); TOTAL PROTEIN 6.1 G/DL (6.3-8.2)
[2016-12-08] MEDS: Insulin Lispro (humaLOG) 100 Units/ml Inj SC SCH ×3 (06:52→22:49)
[2016-12-08] MEDS: Micafungin 100 MG in Sodium Chloride 0.9% 100 ML IVPB SCH (08:05)
[2016-12-08] MEDS: Acetylcysteine 20% Inhal Soln (4ml) INH SCH (08:40)
[2016-12-08] MEDS ORDERED: Magnesium Sulfate 1 gm in D5W 1 GM/100 ML BAG IVPB ONE (08:42)
[2016-12-08] MEDS ORDERED: Potassium Chloride 20 mEq/15 ml LIQ UD PO ONE (08:42)
[2016-12-08] MEDS: Meropenem 1 GM in Sodium Chloride 0.9% 100 ML IVPB SCH ×2 (09:03→21:12)
--- NOTE | 2016-12-08 10:28 | CP.PCM.PN ---
Subjective - Date & Time of Evaluation Date of Evaluation: 12/08/16 Time of Evaluation: 10:27 - Subjective Subjective: No significant changes reported clinically Vital sign noted BMP and blood work reviewed Serum sodium corrected BUN and creatinine improving And the impression and plan non-oliguric Acute Kidney Injury (N17.9) likely due to shock/sepsis, acute tubular necrosis, also contributed by urine retention due to misplaced no/ purulent urine Hypernatremia, hypokalemia sepsis, shock HAGMA, Anemia, acute respi failure, possible aspiration DM, HTN Pneumonia, UTI Hypernatremia improving Remain on respirator Objective - Vital Signs/Intake and Output Vital Signs (last 24 hours): Temp Pulse Resp BP Pulse Ox 98.3 F 80 28 H 141/74 100 12/08/16 08:00 12/08/16 10:00 12/08/16 10:00 12/08/16 10:00 12/08/16 10:00 Intake and Output: 12/08/16 12/08/16 06:59 18:59 Intake Total 1690 670 Output Total 1200 360 Balance 490 310 - Medications Medications: Current Medications Acetylcysteine (Acetylcysteine 20%) 2 ml INH RBID [facility] Last Admin: 12/08/16 08:40 Dose: Not Given Guaifenesin (Robitussin) 200 mg PO Q6 PRN PRN Reason: Cough Heparin Sodium (Porcine) (Heparin) 5,000 units SC Q12 LARRY PRN Reason: Protocol Last Admin: 12/08/16 08:05 Dose: 5,000 units Micafungin Sodium 100 mg/ (Sodium Chloride) 100 mls @ 100 mls/hr IVPB DAILY [facility] Last Admin: 12/08/16 08:05 Dose: 100 mls/hr Meropenem 1 gm/ Sodium (Chloride) 100 mls @ 100 mls/hr IVPB Q12 [facility] Last Admin: 12/08/16 09:03 Dose: 100 mls/hr Sodium Bicarbonate 75 meq/ (Dextrose) 1,075 mls @ 60 mls/hr IV .[id number] [facility] Stop: 12/08/16 23:44 Last Admin: 12/08/16 00:47 Dose: 60 mls/hr Insulin Human Lispro (Humalog) 0 units SC Q6 LARRY PRN Reason: Protocol Last Admin: 12/08/16 06:52 Dose: Not Given Metronidazole (Flagyl) 500 mg PO Q8 [facility]ARRY Last Admin: 12/08/16 08:04 Dose: 500 mg Potassium Chloride (Potassium Chloride Oral Soln) 40 meq NG ONCE [facility] Last Admin: 12/06/16 12:58 Dose: 40 meq - Labs Labs: 12/08/16 04:20 12/08/16 04:20 PT 17.0 Seconds (9.8-13.1) H 12/04/16 18:00 INR 1.6 (0.9-1.2) H 12/04/16 18:00 APTT 37.9 Seconds (25.6-37.1) H 12/04/16 17:17 Assessment and Plan (1) GEORGINA (acute kidney injury) Status: Acute (2) Acute hypercapnic respiratory failure Status: Acute (3) Leukocytosis Status: Acute (4) Pneumonia Status: Acute
--- NOTE | 2016-12-08 11:54 | RAD ---
HISTORY: intubated COMPARISON: Comparison is made to 12/07/2016 FINDINGS: LUNGS: Interval worsening of hazy opacity at the right lower lung since the previous exam. The ET tube is seen at appropriate position. PLEURA: Suspicious for right pleural effusion. CARDIOVASCULAR: Normal. OSSEOUS STRUCTURES: No significant abnormalities. VISUALIZED UPPER ABDOMEN: The NG tube seen extending to the stomach. OTHER FINDINGS: There is a right-sided PICC line seen in place. IMPRESSION: Hazy opacity and/or infiltrate at the right lower lung appears more conspicuous compared to the previous study. Small right pleural effusion. Appropriate position of the support devices.
--- NOTE | 2016-12-08 13:55 | CP.PCM.PN ---
Subjective - Date & Time of Evaluation Date of Evaluation: 12/08/16 Time of Evaluation: 13:20 - Subjective Subjective: F/U Respiratory failure. Eyes open , follows simple commands , on CPAP-P/S since yesterday Objective - Vital Signs/Intake and Output Vital Signs (last 24 hours): Temp Pulse Resp BP Pulse Ox 98.1 F 85 16 136/85 100 12/08/16 12:00 12/08/16 12:00 12/08/16 12:00 12/08/16 12:00 12/08/16 12:00 Intake and Output: 12/08/16 12/08/16 06:59 18:59 Intake Total 1690 830 Output Total 1200 460 Balance 490 370 - Medications Medications: Current Medications Acetylcysteine (Acetylcysteine 20%) 2 ml INH RBID [facility] Last Admin: 12/08/16 08:40 Dose: Not Given Guaifenesin (Robitussin) 200 mg PO Q6 PRN PRN Reason: Cough Heparin Sodium (Porcine) (Heparin) 5,000 units SC Q12 [facility]ARRY PRN Reason: Protocol Last Admin: 12/08/16 08:05 Dose: 5,000 units Micafungin Sodium 100 mg/ (Sodium Chloride) 100 mls @ 100 mls/hr IVPB DAILY [facility] Last Admin: 12/08/16 08:05 Dose: 100 mls/hr Meropenem 1 gm/ Sodium (Chloride) 100 mls @ 100 mls/hr IVPB Q12 [facility] Last Admin: 12/08/16 09:03 Dose: 100 mls/hr Sodium Bicarbonate 75 meq/ (Dextrose) 1,075 mls @ 60 mls/hr IV .[id number] [facility] Stop: 12/08/16 23:44 Last Admin: 12/08/16 00:47 Dose: 60 mls/hr Insulin Human Lispro (Humalog) 0 units SC Q6 [facility]ARRY PRN Reason: Protocol Last Admin: 12/08/16 11:44 Dose: Not Given Metronidazole (Flagyl) 500 mg PO Q8 [facility] Last Admin: 12/08/16 08:04 Dose: 500 mg Potassium Chloride (Potassium Chloride Oral Soln) 40 meq NG ONCE [facility] Last Admin: 12/06/16 12:58 Dose: 40 meq - Labs Labs: 12/08/16 04:20 12/08/16 04:20 PT 17.0 Seconds (9.8-13.1) H 12/04/16 18:00 INR 1.6 (0.9-1.2) H 12/04/16 18:00 APTT 37.9 Seconds (25.6-37.1) H 12/04/16 17:17 - Constitutional Appears: Chronically Ill - Head Exam Head Exam: NORMAL INSPECTION - Eye Exam Eye Exam: PERRL - ENT Exam Additional comments: Intubated - Neck Exam Neck Exam: Normal Inspection - Respiratory Exam Respiratory Exam: Decreased Breath Sounds (b/l), Rhonchi (few at bases) - Cardiovascular Exam Cardiovascular Exam: REGULAR RHYTHM - GI/Abdominal Exam GI & Abdominal Exam: Soft, Normal Bowel Sounds - Extremities Exam Additional comments: Edema upper extremities. - Back Exam Back Exam: NORMAL INSPECTION - Neurological Exam Neurological Exam: Awake Additional comments: Response to tactile stimuli, generalized weakness. - Psychiatric Exam Additional comments: Calm. - Skin Skin Exam: Warm Assessment and Plan (1) Acute hypercapnic respiratory failure Status: Acute (2) Klebsiella pneumonia Status: Acute (3) Dehydration Status: Acute (4) Septic shock Status: Acute (5) Hyperkalemia Status: Acute (6) GEORGINA (acute kidney injury) Status: Acute (7) Type 2 diabetes mellitus with hyperglycemia Status: Chronic (8) HTN (hypertension) Status: Chronic (9) C. difficile colitis Status: Acute (10) Fungemia Status: Acute - Assessment and Plan (Free Text) Plan: ICU Time: 40 min.
--- NOTE | 2016-12-08 16:05 | CP.CCUPN ---
CCU Subjective - Physician Review Subjective (Free Text): 12/08/16 16:13 The patient was Seen/interviewed and examined by me at the bedside during ICU round, Medical records reviewed and Management issues were discussed and formulated with the house staff. Off sedations Alert, follows some commands Comfortable, unlabored breathing Afebrile, S/p PICC line placement yesterday, TLC removed Episodes of Ventricular arrythmia, back to A Fib/A Flutter on the monitor, EKG reviewed Tolerating CPAP trial with 10 PS, and tolerating do far with adequate saturation but low TV Tolerating OG tube feeding with Glucerna at 80cc/hr Moderate amount of white Resp secretions Morning labs reviewed, K/Mg suplementd Evaluated by wound care for sacral wound and left hip area redness. CCU Objective - Vital Signs / Intake & Output Vital Signs (Last 4 hours): Vital Signs Pulse Resp BP Pulse Ox 12/08/16 14:00 76 23 138/73 100 Intake and Output (Last 8hrs): Intake & Output 12/08/16 12/08/16 12/08/16 06:59 14:59 22:59 Intake Total 1270 990 Output Total 1200 685 Balance 70 305 Intake: IV 480 Intake, Piggyback 200 Oral 0 Tube Feeding 640 640 Free Water Flush 150 150 Output: Gastric Amount 0 Stomach 0 Urine 1200 685 Urethral (Triplett) 1200 685 Other: # Bowel Movements 100 - Physical Exam Head: Positive for: Normocephalic Pupils: Positive for: PERRL Extroacular Muscles: Positive for: EOMI. Negative for: Gaze Palsy Conjunctiva: Negative for: Injected, Icteric Mouth: Positive for: Moist Mucous Membranes Neck: Negative for: Meningeal Signs, JVD, Lymphadenopathy Respiratory/Chest: Positive for: Decreased Breath Sounds. Negative for: Wheezes , Rhonchi Cardiovascular: Positive for: Regular Rate and Rhythm. Negative for: Murmurs, Rub Abdomen: Positive for: Normal Bowel Sounds. Negative for: Tenderness, Distention Lower Extremity: Positive for: Edema, Other (osteomyelitis of right foot). Negative for: CALF TENDERNESS, Cyanosis Neurological: Positive for: Norm Deep Tendon Reflexes Skin: Positive for: Warm. Negative for: Rashes Psychiatric: Positive for: Alert, Lethargic - Medications Active Medications: Active Medications Generic Name Dose Route Start Last Admin Trade Name Freq PRN Reason Stop Dose Admin Acetylcysteine 2 ml 11/27/16 20:00 12/08/16 08:40 Acetylcysteine 20% INH Not Given RBID LARRY Guaifenesin 200 mg 12/06/16 18:47 Robitussin PO Q6 PRN Cough Heparin Sodium (Porcine) 5,000 units 12/06/16 21:00 12/08/16 08:05 Heparin SC 5,000 units Q12 LARRY Administration Protocol Micafungin Sodium 100 mg/ 100 mls @ 100 mls/hr 12/06/16 20:45 12/08/16 08:05 Sodium Chloride IVPB 100 mls/hr DAILY LARRY Administration Meropenem 1 gm/ Sodium 100 mls @ 100 mls/hr 12/08/16 10:00 12/08/16 09:03 Chloride IVPB 100 mls/hr Q12 LARRY Administration Sodium Bicarbonate 75 meq/ 1,075 mls @ 60 mls/hr 12/07/16 23:40 12/08/16 00: 47 Dextrose IV 12/08/16 23:44 60 mls/hr .[id number] LARRY Administration Insulin Human Lispro 0 units 12/06/16 22:00 12/08/16 11:44 Humalog SC Not Given Q6 LARRY Protocol Metronidazole 500 mg 11/27/16 11:00 12/08/16 08:04 Flagyl PO 500 mg Q8 LARRY Administration Potassium Chloride 40 meq 12/06/16 12:00 12/06/16 12:58 Potassium Chloride Oral Soln NG 40 meq ONCE LARRY Administration - Patient Studies Lab Studies: Microbiology Studies 12/04/16 00:10 Blood Culture - Preliminary Blood-Venous Yeast Species Gram Stain - Final 12/04/16 00:10 S.aureus & Coag-Neg Staph PNA FISH - Preliminary Blood-Venous Blood Culture - Preliminary Yeast Species Gram Stain - Final 12/04/16 14:00 S.aureus & Coag-Neg Staph PNA FISH - Final Blood Blood Culture - Final Saccharomyces Cerevisiae Gram Stain - Final 12/04/16 18:00 S.aureus & Coag-Neg Staph PNA FISH - Final Blood-Thru Central Line Blood Culture - Final Saccharomyces Cerevisiae Gram Stain - Final 12/06/16 17:30 Blood Culture - Preliminary Blood-Venous NO GROWTH AFTER 24 HOURS 12/06/16 17:50 Blood Culture - Preliminary Blood-Venous NO GROWTH AFTER 24 HOURS Lab Studies 12/08/16 12/08/16 12/08/16 Range/Units 11:18 06:09 05:01 WBC (4.8-10.8) K/uL RBC (4.40-5.90) Mil/uL Hgb (12.0-18.0) g/dL Hct (35.0-51.0) % MCV (80.0-94.0) fl MCH (27.0-31.0) pg MCHC (33.0-37.0) g/dL RDW (11.5-14.5) % Plt Count (130-400) K/uL pCO2 28 L (35-45) mm/Hg pO2 157 H (80-100) mm/Hg HCO3 26.3 (21-28) mmol/L ABG pH 7.54 H (7.35-7.45) ABG Total CO2 24.8 (22-28) mmol/L ABG O2 Saturation 100.4 H (95-98) % ABG O2 Content 12.5 L (15-23) ML/dL ABG Base Excess 1.7 (-2.0-3.0) mmol/L ABG Hemoglobin 8.9 L (11.7-17.4) g/dL ABG Carboxyhemoglobin 1.3 (0.5-1.5) % POC ABG HHb (Measured) -0.4 L (0.0-5.0) % ABG Methemoglobin 2.1 (0.0-3.0) % ABG O2 Capacity 12.5 L (16-24) mL/dL Torres Test Yes A-a O2 Difference 93.0 mm/Hg Hgb O2 Saturation 97.1 (95.0-98.0) % Vent Mode A/c Mechanical Rate 12 FiO2 40.0 % Tidal Volume 450 PEEP 5 Sodium (132-148) mmol/l Potassium (3.6-5.0) MMOL/L Chloride (98-107) mmol/L Carbon Dioxide (22-30) mmol/L Anion Gap (10-20) BUN (9-20) mg/dl Creatinine (0.8-1.5) mg/dL Est GFR ( Amer) Est GFR (Non-Af Amer) POC Glucose (mg/dL) 142 H 144 H (65-110) mg/dL Random Glucose (75-110) mg/dL Calcium (8.4-10.2) mg/dL Phosphorus (2.5-4.5) mg/dl Magnesium (1.6-2.3) MG/DL Total Bilirubin (0.2-1.3) mg/dl AST (17-59) U/L ALT (21-72) U/L Alkaline Phosphatase (38-126) U/L Total Protein (6.3-8.2) G/DL Albumin (3.5-5.0) g/dL Globulin (2.2-3.9) gm/dL Albumin/Globulin Ratio (1.0-2.1) 12/08/16 12/08/16 12/07/16 Range/Units 04:20 04:20 21:06 WBC 7.0 (4.8-10.8) K/uL RBC 2.78 L (4.40-5.90) Mil/uL Hgb 8.3 L (12.0-18.0) g/dL Hct 24.9 L (35.0-51.0) % MCV 89.6 (80.0-94.0) fl MCH 29.8 (27.0-31.0) pg MCHC 33.3 (33.0-37.0) g/dL RDW 16.4 H (11.5-14.5) % Plt Count 96 L (130-400) K/uL pCO2 (35-45) mm/Hg pO2 (80-100) mm/Hg HCO3 (21-28) mmol/L ABG pH (7.35-7.45) ABG Total CO2 (22-28) mmol/L ABG O2 Saturation (95-98) % ABG O2 Content (15-23) ML/dL ABG Base Excess (-2.0-3.0) mmol/L ABG Hemoglobin (11.7-17.4) g/dL ABG Carboxyhemoglobin (0.5-1.5) % POC ABG HHb (Measured) (0.0-5.0) % ABG Methemoglobin (0.0-3.0) % ABG O2 Capacity (16-24) mL/dL Torres Test A-a O2 Difference mm/Hg Hgb O2 Saturation (95.0-98.0) % Vent Mode Mechanical Rate FiO2 % Tidal Volume PEEP Sodium 141 (132-148) mmol/l Potassium 3.5 L (3.6-5.0) MMOL/L Chloride 110 H (98-107) mmol/L Carbon Dioxide 23 (22-30) mmol/L Anion Gap 12 (10-20) BUN 32 H (9-20) mg/dl Creatinine 1.4 (0.8-1.5) mg/dL Est GFR ( Amer) > 60 Est GFR (Non-Af Amer) 50 POC Glucose (mg/dL) 162 H (65-110) mg/dL Random Glucose 124 H (75-110) mg/dL Calcium 7.2 L (8.4-10.2) mg/dL Phosphorus 2.4 L (2.5-4.5) mg/dl Magnesium 1.6 (1.6-2.3) MG/DL Total Bilirubin 0.5 (0.2-1.3) mg/dl AST 26 (17-59) U/L ALT 22 (21-72) U/L Alkaline Phosphatase 672 H (38-126) U/L Total Protein 6.1 L (6.3-8.2) G/DL Albumin 2.1 L (3.5-5.0) g/dL Globulin 4.1 H (2.2-3.9) gm/dL Albumin/Globulin Ratio 0.5 L (1.0-2.1) Laboratory Results - last 24 hr 12/07/16 12/08/16 12/08/16 21:06 04:20 04:20 WBC 7.0 RBC 2.78 L Hgb 8.3 L Hct 24.9 L MCV 89.6 MCH 29.8 MCHC 33.3 RDW 16.4 H Plt Count 96 L pCO2 pO2 HCO3 ABG pH ABG Total CO2 ABG O2 Saturation ABG O2 Content ABG Base Excess ABG Hemoglobin ABG Carboxyhemoglobin POC ABG HHb (Measured) ABG Methemoglobin ABG O2 Capacity Torres Test A-a O2 Difference Hgb O2 Saturation Vent Mode Mechanical Rate FiO2 Tidal Volume PEEP Sodium 141 Potassium 3.5 L Chloride 110 H Carbon Dioxide 23 Anion Gap 12 BUN 32 H Creatinine 1.4 Est GFR ( Amer) > 60 Est GFR (Non-Af Amer) 50 POC Glucose (mg/dL) 162 H Random Glucose 124 H Calcium 7.2 L Phosphorus 2.4 L Magnesium 1.6 Total Bilirubin 0.5 AST 26 ALT 22 Alkaline Phosphatase 672 H Total Protein 6.1 L Albumin 2.1 L Globulin 4.1 H Albumin/Globulin Ratio 0.5 L 12/08/16 12/08/16 12/08/16 05:01 06:09 11:18 WBC RBC Hgb Hct MCV MCH MCHC RDW Plt Count pCO2 28 L pO2 157 H HCO3 26.3 ABG pH 7.54 H ABG Total CO2 24.8 ABG O2 Saturation 100.4 H ABG O2 Content 12.5 L ABG Base Excess 1.7 ABG Hemoglobin 8.9 L ABG Carboxyhemoglobin 1.3 POC ABG HHb (Measured) -0.4 L ABG Methemoglobin 2.1 ABG O2 Capacity 12.5 L Torres Test Yes A-a O2 Difference 93.0 Hgb O2 Saturation 97.1 Vent Mode A/c Mechanical Rate 12 FiO2 40.0 Tidal Volume 450 PEEP 5 Sodium Potassium Chloride Carbon Dioxide Anion Gap BUN Creatinine Est GFR ( Amer) Est GFR (Non-Af Amer) POC Glucose (mg/dL) 144 H 142 H Random Glucose Calcium Phosphorus Magnesium Total Bilirubin AST ALT Alkaline Phosphatase Total Protein Albumin Globulin Albumin/Globulin Ratio EKG/Cardiology Studies: Cardiology / EKG Studies 12/08/16 EKG [ELECTROCARDIOGRAM] Stat Comment: Mode Of Transportation: PORTABLE Reason For Exam: A Fib Isolation: Contact Fingerstick Blood Sugar Results: 142 Results Reviewed to Date: Yes Review of Systems - Review of Systems Systems not reviewed;Unavailable: Intubated Critical Care Progress Note - Ventilator Checklist Head of Bed 30 Degrees: Yes Daily Sedation Vacation: Yes Daily Assessment of Readiness to Wean: Yes Daily Spontaneous Breathing Trial: Yes PUD Prophalyxis: Yes DVT Prophylaxis: Yes Oral Care with Chlorhexidine Gluconate {CHG}: Yes Assessment/Plan (1) Acute hypercapnic respiratory failure Current Visit: Yes Status: Acute Priority: High Comment: Acute respiratory failure secondary to aspiration pneumonia Daily SAT/SBT Aggressive pulmonary toilet, chest PT, suctioning (2) Aspiration pneumonia Current Visit: Yes Status: Acute Comment: Continue IV Antibiotics Maintain aspiration precautions (3) Severe sepsis Current Visit: Yes Status: Acute Priority: High Comment: Severe sepsis from UTI and aspiration pneumonia with Klebsiella pneumoniae Continue Meropenem and Micafungin Continue Flagyl 500 mg PO Q8H (4) C. difficile colitis Current Visit: Yes Status: Acute Comment: Continue Flagyl 500 mg PO Q8H (5) GEORGINA (acute kidney injury) Current Visit: Yes Status: Acute Priority: High (6) Osteomyelitis of right foot Current Visit: Yes Status: Acute (7) Avascular necrosis of bone of right hip Current Visit: No Status: Acute Priority: High Comment: for sx when stable (8) Bacteremia due to Gram-positive bacteria Current Visit: No Status: Acute Priority: High (9) DVT prophylaxis Current Visit: No Status: Acute - Assessment and Plan (Free Text) Assessment: I have reviewed all the relevant clinical, laboratory, hemodynamic, radiographic data and medications Pain issues, skin care, head of the bed elevation, glycemic control were addressed. Full code Total critical care time 42 minutes
[2016-12-08] MEDS: Santyl Collagenase OINTMENT TOP SCH (21:15)
[2016-12-09 05:08] LABS: ABG ALLEN TEST YES; ABG MECHANICAL RATE 12; ARTERIAL BLOOD GAS HCO3 26.2 mmol/L (21-28); ARTERIAL BLOOD GAS MODE A/C; ARTERIAL BLOOD GAS O2 CAPACITY 14.1 mL/dL (16-24); ARTERIAL BLOOD GAS O2 CONTENT 14.1 ML/dL (15-23); ARTERIAL BLOOD GAS PH 7.44 (7.35-7.45); ARTERIAL BLOOD GAS PO2 145 mm/Hg (80-100); ARTERIAL BLOOD HGB O2 SAT 97.5 % (95.0-98.0); ATERIAL BLOOD GAS PEEP 5; CARBOXYHEMOGLOBIN 1.3 % (0.5-1.5); HHB -0.2 % (0.0-5.0); METHEMOGLOBIN 1.3 % (0.0-3.0)
[2016-12-09] MEDS: Insulin Lispro (humaLOG) 100 Units/ml Inj SC SCH ×4 (05:32→21:38)
[2016-12-09 06:46] LABS: HEMATOCRIT 26.7 % (35.0-51.0); MEAN CELL VOLUME 90.3 fl (80.0-94.0); MEAN CORPUSCULAR HEMOGLOBIN 30.1 pg (27.0-31.0); MEAN CORPUSCULAR HGB CONC 33.3 g/dL (33.0-37.0); RED CELL DISTRIBUTION WIDTH 16.8 % (11.5-14.5); WHITE BLOOD COUNT 7.1 K/uL (4.8-10.8)
--- NOTE | 2016-12-09 06:50 | CP.CCUPN ---
CCU Subjective - Physician Review Subjective (Free Text): Awake and alert, no overall distress, at approx. midnight (as noted in DIRECTOR OF CARDIAC REHABILITATION Vent assessment note) - returned to AC 12, 450ml TV, 40% with PEEP5, spo2 99%, had been previously on CPAP PS for approx 11-12 hours ( I see vent weaning protocol initiate orders at 854am; and DIRECTOR OF CARDIAC REHABILITATION entry for CPAP PS 08/11, at 1142AM yesterday) . Day #6 MV support. Breathing now at 17 on AC 12, TV 450, Peep 5, 40 % oxygen, SPO2 100%, previous IVF with D5W 100ml/hr now off (for hypernatremia as per Nephro). New RUE PICC noted, placed 12/07. Now on [facility] Sport Bed. Tolerating OGT feeds at 80 ml/hr Glucerna. Overall, level of gross anasarca unchanged. Other vitals and I/O's reviewed. No further tachyarrhythmias noted. Cardiac rhythm is sinus with PACs. No new fever spikes noted. ROS: unobtainable from intubated patient. No other pertinent negs or positives on system review. PMSFH: All Nursing and physician documentation reviewed to date; no new pertinent info noted relevant to current medical problems. CXR: (my interp) ETT position OK above shira, RLL infiltrate and haziness, also LLL shows prominent interstitial changes. MAJOR PROBLEMS: 1. Acute Hypercapneic Resp Failure ( 2nd time intubation on 12/04, 1st time 11/20 -extubated 11/24) 2' Pneumonia 2. s/p Ventricular Arrhythmias, ?? 2' to Alkalosis 3. Staph Bacteremia 4. Fungemia 5. s/p Hypernatremia with Azotemia 6. Chronic Disease Anemia with Coagulopathy, and +FOBT ( rec'd iii PRBCS on 12/04-12/05) 7. s/ p Paroxysmal A Fib with RVR (12/05) PLAN: 1. Despite worsening CXR findings, ABGS reflect excellent oxygenation. PCO2 levels consistently low and may need TV adjustment to be lowered to 400-450ml. Check repeat ABGs. 2. Since he has been on and tolerated up to 12 hours of low level CPAP PS; he may be amenable to extubation. I see no ABGs done on CPAP PS. Will order today if stable on CPAP PS again after an hour. 3. Connie/ Flagyl PO, and Micafungin coverage noted. Repeat BCs (peripheral) are negative as of 12/06. New Triplett inserted on 12/04 which grew +Yeast. C. diff was negative on 12/01. 4. Lasix prn. Try to keep negative fluid balance. ECHO done 12/08 cine-video reviewed. Await official report on presence of any vegetative disease. 5. Aware Brain CT done 12/04; negative for acute pathology. 6. Labs reviewed: HyperNa+ resolved; progressive rise in Alk Phos noted- check GGT (no h/o of Cholesystectomy noted). Check repeat coags again. 7. No stress ulcer prx seen in Medication list today nor since re-intubation, will order. CCU Objective - Vital Signs / Intake & Output Vital Signs (Last 4 hours): Vital Signs Temp Pulse Resp BP Pulse Ox 12/09/16 06:00 97 H 19 137/83 100 12/09/16 05:07 95 H 18 138/85 99 12/09/16 04:00 98.2 F 96 H 20 143/73 99 12/09/16 03:06 92 H 18 134/71 100 Intake and Output (Last 8hrs): Intake & Output 12/08/16 12/08/16 12/09/16 14:59 22:59 06:59 Intake Total 990 1060 970 Output Total 685 625 800 Balance 305 435 170 Intake: Intake, Piggyback 200 350 100 Oral 160 Tube Feeding 640 400 720 Free Water Flush 150 150 150 Output: Urine 685 425 800 Urethral (Triplett) 685 425 800 Stool 200 - Physical Exam Head: Positive for: Normocephalic Pupils: Positive for: PERRL Extroacular Muscles: Positive for: EOMI. Negative for: Gaze Palsy Conjunctiva: Negative for: Injected, Icteric Mouth: Positive for: Moist Mucous Membranes Neck: Negative for: Meningeal Signs, JVD, Lymphadenopathy Respiratory/Chest: Positive for: Decreased Breath Sounds. Negative for: Accessory Muscle Use, Wheezes, Rhonchi Cardiovascular: Positive for: Regular Rate and Rhythm. Negative for: Murmurs, Rub Abdomen: Positive for: Normal Bowel Sounds. Negative for: Tenderness, Distention Lower Extremity: Positive for: Edema, Other (osteomyelitis of right foot). Negative for: CALF TENDERNESS, Cyanosis Neurological: Positive for: Motor Func Grossly Intact, Norm Deep Tendon Reflexes Skin: Positive for: Warm. Negative for: Rashes Psychiatric: Positive for: Alert. Negative for: Lethargic - Medications Active Medications: Active Medications Generic Name Dose Route Start Last Admin Trade Name Freq PRN Reason Stop Dose Admin Acetylcysteine 2 ml 11/27/16 20:00 12/08/16 08:40 Acetylcysteine 20% INH Not Given RBID LARRY Collagenase 1 applic 12/08/16 16:15 12/08/16 21:15 Santyl TOP 1 applic DAILY LARRY Administration Guaifenesin 200 mg 12/06/16 18:47 Robitussin PO Q6 PRN Cough Heparin Sodium (Porcine) 5,000 units 12/06/16 21:00 12/08/16 21:09 Heparin SC 5,000 units Q12 LARRY Administration Protocol Meropenem 1 gm/ Sodium 100 mls @ 100 mls/hr 12/08/16 10:00 12/08/16 21:12 Chloride IVPB 100 mls/hr Q12 LARRY Administration Voriconazole 400 mg/ Sodium 250 mls @ 125 mls/hr 12/08/16 21:00 12/08/16 22: 09 Chloride IVPB 12/09/16 10:59 125 mls/hr Q12 LARRY Administration Insulin Human Lispro 0 units 12/06/16 22:00 12/09/16 05:32 Humalog SC Not Given Q6 LARRY Protocol Metronidazole 500 mg 11/27/16 11:00 12/09/16 00:25 Flagyl PO 500 mg Q8 LARRY Administration Nystatin 1 applic 12/08/16 17:00 12/08/16 21:14 Nystop Topical Powder TOP 1 pow TID LARRY Administration Potassium Chloride 40 meq 12/06/16 12:00 12/06/16 12:58 Potassium Chloride Oral Soln NG 40 meq ONCE LARRY Administration - Patient Studies Lab Studies: Microbiology Studies 12/06/16 17:30 Blood Culture - Preliminary Blood-Venous NO GROWTH AFTER 48 HOURS 12/06/16 17:50 Blood Culture - Preliminary Blood-Venous NO GROWTH AFTER 48 HOURS 12/04/16 00:10 Blood Culture - Preliminary Blood-Venous Yeast Species Gram Stain - Final 12/04/16 00:10 S.aureus & Coag-Neg Staph PNA FISH - Preliminary Blood-Venous Blood Culture - Preliminary Yeast Species Gram Stain - Final 12/04/16 14:00 S.aureus & Coag-Neg Staph PNA FISH - Final Blood Blood Culture - Final Saccharomyces Cerevisiae Gram Stain - Final 12/04/16 18:00 S.aureus & Coag-Neg Staph PNA FISH - Final Blood-Thru Central Line Blood Culture - Final Saccharomyces Cerevisiae Gram Stain - Final Lab Studies 12/09/16 12/09/16 12/08/16 Range/Units 05:30 05:01 22:19 pCO2 38 (35-45) mm/Hg pO2 145 H (80-100) mm/Hg HCO3 26.2 (21-28) mmol/L ABG pH 7.44 (7.35-7.45) ABG Total CO2 27.0 (22-28) mmol/L ABG O2 Saturation 100.2 H (95-98) % ABG O2 Content 14.1 L (15-23) ML/dL ABG Base Excess 1.6 (-2.0-3.0) mmol/L ABG Hemoglobin 10.1 L (11.7-17.4) g/dL ABG Carboxyhemoglobin 1.3 (0.5-1.5) % POC ABG HHb (Measured) -0.2 L (0.0-5.0) % ABG Methemoglobin 1.3 (0.0-3.0) % ABG O2 Capacity 14.1 L (16-24) mL/dL Torres Test Yes A-a O2 Difference 93.0 mm/Hg Hgb O2 Saturation 97.5 (95.0-98.0) % Vent Mode A/c Mechanical Rate 12 FiO2 40.0 % Tidal Volume 450 PEEP 5 POC Glucose (mg/dL) 118 H 147 H (65-110) mg/dL 12/08/16 12/08/16 Range/Units 16:39 11:18 pCO2 (35-45) mm/Hg pO2 (80-100) mm/Hg HCO3 (21-28) mmol/L ABG pH (7.35-7.45) ABG Total CO2 (22-28) mmol/L ABG O2 Saturation (95-98) % ABG O2 Content (15-23) ML/dL ABG Base Excess (-2.0-3.0) mmol/L ABG Hemoglobin (11.7-17.4) g/dL ABG Carboxyhemoglobin (0.5-1.5) % POC ABG HHb (Measured) (0.0-5.0) % ABG Methemoglobin (0.0-3.0) % ABG O2 Capacity (16-24) mL/dL Torres Test A-a O2 Difference mm/Hg Hgb O2 Saturation (95.0-98.0) % Vent Mode Mechanical Rate FiO2 % Tidal Volume PEEP POC Glucose (mg/dL) 150 H 142 H (65-110) mg/dL Laboratory Results - last 24 hr 12/08/16 12/08/16 12/08/16 11:18 16:39 22:19 pCO2 pO2 HCO3 ABG pH ABG Total CO2 ABG O2 Saturation ABG O2 Content ABG Base Excess ABG Hemoglobin ABG Carboxyhemoglobin POC ABG HHb (Measured) ABG Methemoglobin ABG O2 Capacity Torres Test A-a O2 Difference Hgb O2 Saturation Vent Mode Mechanical Rate FiO2 Tidal Volume PEEP POC Glucose (mg/dL) 142 H 150 H 147 H 12/09/16 12/09/16 05:01 05:30 pCO2 38 pO2 145 H HCO3 26.2 ABG pH 7.44 ABG Total CO2 27.0 ABG O2 Saturation 100.2 H ABG O2 Content 14.1 L ABG Base Excess 1.6 ABG Hemoglobin 10.1 L ABG Carboxyhemoglobin 1.3 POC ABG HHb (Measured) -0.2 L ABG Methemoglobin 1.3 ABG O2 Capacity 14.1 L Torres Test Yes A-a O2 Difference 93.0 Hgb O2 Saturation 97.5 Vent Mode A/c Mechanical Rate 12 FiO2 40.0 Tidal Volume 450 PEEP 5 POC Glucose (mg/dL) 118 H Radiology Interpretations (Free Text): CXR: (my interp) ETT position OK above shira, RLL infiltrate and haziness, also LLL shows prominent interstitial changes. Fingerstick Blood Sugar Results: 118 Review of Systems - Review of Systems Systems not reviewed;Unavailable: Intubated Critical Care Progress Note - Ventilator Checklist Head of Bed 30 Degrees: Yes Daily Sedation Vacation: Yes Daily Assessment of Readiness to Wean: Yes Daily Spontaneous Breathing Trial: Yes PUD Prophalyxis: Yes DVT Prophylaxis: Yes Oral Care with Chlorhexidine Gluconate {CHG}: Yes - Vent Settings MODE:: ASSIST CONTROL TIDAL VOLUME:: 450 RESP RATE:: 12 FIO2:: 40 PEEP:: 5 - Extremities/Vascular Does the Patient have a Central Venous Catheter?: Yes Insertion Site: RE PICC Does the Patient need a Central Venous Catheter?: Yes Does the Patient have a Triplett Catheter?: Yes Does the Patient need a Triplett Catheter?: Yes Catheter Insertion Criteria: Need for accurate measurement of output in critically ill patient - Restraints Justification for Restraints: High risk for self extubation, High risk for removing IV access, High risk for harming self - Prophylaxis GI Prophylaxis GI: PPI - Prophylaxis DVT Prophylaxis DVT: Heparin SQ
[2016-12-09 07:04] LABS: ALB/GLOB RATIO 0.5 (1.0-2.1); ALKALINE PHOSPHATASE 756 U/L (38-126); ALT/SGPT 20 U/L (21-72); AST/SGOT 23 U/L (17-59); BILIRUBIN,TOTAL 0.4 mg/dl (0.2-1.3); BLOOD UREA NITROGEN 31 mg/dl (9-20); CALCIUM 7.4 mg/dL (8.4-10.2); CARBON DIOXIDE 23 mmol/L (22-30); CHLORIDE 108 mmol/L (98-107); GFR AFRICAN-AMERICAN > 60; GLUCOSE,RANDOM 118 mg/dL (75-110); MAGNESIUM 1.9 MG/DL (1.6-2.3); POTASSIUM 3.5 MMOL/L (3.6-5.0); TOTAL PROTEIN 6.3 G/DL (6.3-8.2)
[2016-12-09 07:06] LABS: SODIUM 140 mmol/l (132-148)
[2016-12-09] MEDS: Meropenem 1 GM in Sodium Chloride 0.9% 100 ML IVPB SCH ×2 (08:45→20:12)
[2016-12-09] MEDS: Santyl Collagenase OINTMENT TOP SCH (08:46)
[2016-12-09] MEDS: Acetylcysteine 20% Inhal Soln (4ml) INH SCH ×2 (08:48→19:23)
--- NOTE | 2016-12-09 09:19 | RAD ---
HISTORY: intubated COMPARISON: Portable chest 12/08/2016. FINDINGS: Endotracheal tube and nasogastric tube are unchanged position grossly with PICC again identified. LUNGS: Diminishing right basilar infiltrate noted. PLEURA: No significant pleural effusion identified, no pneumothorax apparent. CARDIOVASCULAR: Normal. OSSEOUS STRUCTURES: No significant abnormalities. VISUALIZED UPPER ABDOMEN: Normal. OTHER FINDINGS: None. IMPRESSION: Diminishing right basilar infiltrate with limited residual at the medial right base.
[2016-12-09] MEDS ORDERED: Potassium Chloride 20 mEq/15 ml LIQ UD PO ONE (10:17)
--- NOTE | 2016-12-09 10:22 | CP.PCM.PN ---
Subjective - Date & Time of Evaluation Date of Evaluation: 12/09/16 Time of Evaluation: 10:20 - Subjective Subjective: No significant changes clinically remain on respirator was NG tube Serum potassium is still 3.4-3.5 in that range To give a stat dose of potassium chloride milliequivalents now and to check serum magnesium Physical exam Chest few rhonchi Heart no rubs Abdomen soft Extremity no edema Impression and plan Recovering from acute kidney injury Electrolyte improving except of hypokalemia Continue monitoring and keep potassium chloride check magnesium. Objective - Vital Signs/Intake and Output Vital Signs (last 24 hours): Temp Pulse Resp BP Pulse Ox 98.8 F 100 H 19 121/59 L 97 12/09/16 08:00 12/09/16 08:00 12/09/16 08:00 12/09/16 08:00 12/09/16 08:00 Intake and Output: 12/09/16 12/09/16 06:59 18:59 Intake Total 1560 Output Total 800 Balance 760 - Medications Medications: Current Medications Acetylcysteine (Acetylcysteine 20%) 2 ml INH RBID [facility] Last Admin: 12/09/16 08:48 Dose: Not Given Collagenase (Santyl) 1 applic TOP DAILY [facility] Last Admin: 12/09/16 08:46 Dose: 1 applic Guaifenesin (Robitussin) 200 mg PO Q6 PRN PRN Reason: Cough Heparin Sodium (Porcine) (Heparin) 5,000 units SC Q12 LARRY PRN Reason: Protocol Last Admin: 12/09/16 08:45 Dose: 5,000 units Meropenem 1 gm/ Sodium (Chloride) 100 mls @ 100 mls/hr IVPB Q12 [facility] Last Admin: 12/09/16 08:45 Dose: 100 mls/hr Voriconazole 400 mg/ Sodium (Chloride) 250 mls @ 125 mls/hr IVPB Q12 [facility] Stop: 12/09/16 10:59 Last Admin: 12/09/16 10:16 Dose: 125 mls/hr Insulin Human Lispro (Humalog) 0 units SC Q6 LARRY PRN Reason: Protocol Last Admin: 12/09/16 05:32 Dose: Not Given Metronidazole (Flagyl) 500 mg PO Q8 [facility] Last Admin: 12/09/16 08:45 Dose: 500 mg Nystatin (Nystop Topical Powder) 1 applic TOP TID [facility] Last Admin: 12/09/16 08:47 Dose: 1 pow Pantoprazole Sodium (Protonix Inj) 40 mg IVP DAILY LARRY Last Admin: 12/09/16 08:48 Dose: 40 mg Potassium Chloride (Potassium Chloride Oral Soln) 40 meq NG ONCE LARRY Last Admin: 12/06/16 12:58 Dose: 40 meq Potassium Chloride (Potassium Chloride Oral Soln) 40 meq PO ONCE ONE Stop: 12/09/16 10:18 - Labs Labs: 12/09/16 05:00 12/09/16 05:00 PT 17.0 Seconds (9.8-13.1) H 12/04/16 18:00 INR 1.6 (0.9-1.2) H 12/04/16 18:00 APTT 37.9 Seconds (25.6-37.1) H 12/04/16 17:17 Assessment and Plan (1) GEORGINA (acute kidney injury) Status: Acute (2) Acute hypercapnic respiratory failure Status: Acute (3) Leukocytosis Status: Acute (4) Pneumonia Status: Acute
--- NOTE | 2016-12-09 12:17 | CARD ---
APPROVED REPORT EXAM: Two-dimensional and M-mode echocardiogram with Doppler and color Doppler. Other Information Quality : GoodRhythm : NSR INDICATION Infection:Subacute bacterial endocarditis 2D DIMENSIONS IVSd0.94 (0.7-1.1cm)LVDd4.66 (3.9-5.9cm) LVOT Diameter2.73 (1.8-2.4cm)PWd1.20 (0.7-1.1cm) IVSs1.18 (0.8-1.2cm)LVDs3.07 (2.5-4.0cm) FS (%) 34.2 %PWs0.96 (0.8-1.2cm) Mitral Valve E/A ratio0.0 TDI E/Lateral E'0.0E/Medial E'0.0 LEFT VENTRICLE The left ventricle is normal size. There is normal left ventricular wall thickness. The left ventricular function is normal. The left ventricular ejection fraction is 55% There is normal LV segmental wall motion. The left ventricular diastolic function is normal. No left ventricle thrombus noted on this study. There is no ventricular septal defect visualized. There is no left ventricular aneurysm. There is no mass noted in the left ventricle. RIGHT VENTRICLE The right ventricle is normal size. There is normal right ventricular wall thickness. The right ventricular systolic function is normal. ATRIA The left atrium size is normal. The right atrium size is normal. The interatrial septum is intact with no evidence for an atrial septal defect. AORTIC VALVE The aortic valve is mildly to moderately sclerotic. No aortic regurgitation is present. There is no aortic valvular stenosis. There is no aortic valvular vegetation. MITRAL VALVE The mitral valve leaflets are calcified. There is no evidence of mitral valve prolapse. There is no mitral valve stenosis. There is no mitral valve regurgitation noted. TRICUSPID VALVE The tricuspid valve is normal in structure and function. There is no tricuspid valve regurgitation noted. There is no tricuspid valve prolapse or vegetation. There is no tricuspid valve stenosis. PULMONIC VALVE The pulmonary valve is normal in structure and function. There is no pulmonic valvular regurgitation. There is no pulmonic valvular stenosis. GREAT VESSELS The aortic root is normal in size. The ascending aorta is normal in size. The IVC is normal in size and collapses >50% with inspiration. PERICARDIAL EFFUSION The pericardium appears normal. There is no pleural effusion. <Conclusion> Normal LV Systolic Function No vegitations visualized by transthoracic echo
[2016-12-09] MEDS: Albuterol-Ipratrop 3 mg / 0.5 (3 ml) UD INH SCH ×3 (12:20→19:23)
--- NOTE | 2016-12-09 16:45 | CP.PCM.PN ---
Subjective - Date & Time of Evaluation Date of Evaluation: 12/09/16 Time of Evaluation: 09:30 - Subjective Subjective: F/U Respiratory failure Pt on CPAP PS for one hour, after back to PRVC/AC 40% FIO2, for respiratory distress, awake, follows simple commands. Objective - Vital Signs/Intake and Output Vital Signs (last 24 hours): Temp Pulse Resp BP Pulse Ox 99.4 F 97 H 22 129/78 100 12/09/16 12:00 12/09/16 14:00 12/09/16 14:00 12/09/16 14:00 12/09/16 14:00 Intake and Output: 12/09/16 12/09/16 06:59 18:59 Intake Total 1560 1140 Output Total 800 Balance 760 1140 - Medications Medications: Current Medications Acetylcysteine (Acetylcysteine 20%) 2 ml INH RBID [facility] Last Admin: 12/09/16 08:48 Dose: Not Given Albuterol/Ipratropium (Duoneb 3 Mg/0.5 Mg (3 Ml) Ud) 3 ml INH RQID [facility] Last Admin: 12/09/16 15:33 Dose: 3 ml Collagenase (Santyl) 1 applic TOP DAILY [facility] Last Admin: 12/09/16 08:46 Dose: 1 applic Heparin Sodium (Porcine) (Heparin) 5,000 units SC Q12 LARRY PRN Reason: Protocol Last Admin: 12/09/16 08:45 Dose: 5,000 units Meropenem 1 gm/ Sodium (Chloride) 100 mls @ 100 mls/hr IVPB Q12 [facility]ARRY Last Admin: 12/09/16 08:45 Dose: 100 mls/hr Insulin Human Lispro (Humalog) 0 units SC Q6 LARRY PRN Reason: Protocol Last Admin: 12/09/16 16:33 Dose: Not Given Metronidazole (Flagyl) 500 mg PO Q8 [facility] Last Admin: 12/09/16 16:33 Dose: 500 mg Nystatin (Nystop Topical Powder) 1 applic TOP TID [facility] Last Admin: 12/09/16 16:34 Dose: 1 pow Pantoprazole Sodium (Protonix Inj) 40 mg IVP DAILY [facility] Last Admin: 12/09/16 08:48 Dose: 40 mg - Labs Labs: 12/09/16 05:00 12/09/16 05:00 PT 17.0 Seconds (9.8-13.1) H 12/04/16 18:00 INR 1.6 (0.9-1.2) H 12/04/16 18:00 APTT 37.9 Seconds (25.6-37.1) H 12/04/16 17:17 - Constitutional Appears: Chronically Ill - Head Exam Head Exam: NORMAL INSPECTION - Eye Exam Eye Exam: PERRL - ENT Exam Additional comments: Intubated - Neck Exam Neck Exam: Normal Inspection - Respiratory Exam Respiratory Exam: Decreased Breath Sounds (b/l), Rhonchi (few at bases) - Cardiovascular Exam Cardiovascular Exam: REGULAR RHYTHM - GI/Abdominal Exam GI & Abdominal Exam: Soft, Normal Bowel Sounds - Extremities Exam Additional comments: Edema upper extremities, L hip redness. - Back Exam Back Exam: NORMAL INSPECTION - Neurological Exam Neurological Exam: Awake Additional comments: Response to tactile stimuli, generalized weakness. - Psychiatric Exam Additional comments: Calm - Skin Skin Exam: Warm Assessment and Plan (1) Acute hypercapnic respiratory failure Status: Acute (2) Klebsiella pneumonia Status: Acute (3) Dehydration Status: Acute (4) Septic shock Status: Acute (5) Hyperkalemia Status: Acute (6) GEORGINA (acute kidney injury) Status: Acute (7) Type 2 diabetes mellitus with hyperglycemia Status: Chronic (8) HTN (hypertension) Status: Chronic (9) C. difficile colitis Status: Acute (10) Fungemia Status: Acute - Assessment and Plan (Free Text) Plan: Pt with 5 days intubated, f/u CXR, for possible Bronchoscopy. ICU Time: 35 min.
[2016-12-10] MEDS: Insulin Lispro (humaLOG) 100 Units/ml Inj SC SCH ×4 (05:04→22:10)
[2016-12-10 05:15] LABS: BASO # 0.1 K/uL (0.0-0.2); BASO % 1.1 % (0.0-2.0); EOS # 0.1 K/uL (0.0-0.7); EOS % 1.6 % (0.0-4.0); HEMATOCRIT 25.5 % (35.0-51.0); LYMPH # 2.6 K/uL (1.0-4.3); LYMPH % 39.3 % (20.0-40.0); MEAN CELL VOLUME 90.3 fl (80.0-94.0); MEAN CORPUSCULAR HEMOGLOBIN 29.9 pg (27.0-31.0); MEAN CORPUSCULAR HGB CONC 33.1 g/dL (33.0-37.0); MEAN PLATELET VOLUME 9.8 fl (7.2-11.7); MONO # 0.5 K/uL (0.0-0.8); NEUT # 3.4 K/uL (1.8-7.0); RED CELL DISTRIBUTION WIDTH 16.7 % (11.5-14.5); WHITE BLOOD COUNT 6.6 K/uL (4.8-10.8)
[2016-12-10 05:22] LABS: ALB/GLOB RATIO 0.5 (1.0-2.1); ALKALINE PHOSPHATASE 877 U/L (38-126); ALT/SGPT 21 U/L (21-72); AST/SGOT 24 U/L (17-59); BILIRUBIN,TOTAL 0.3 mg/dl (0.2-1.3); BLOOD UREA NITROGEN 31 mg/dl (9-20); CALCIUM 7.7 mg/dL (8.4-10.2); CARBON DIOXIDE 25 mmol/L (22-30); CHLORIDE 110 mmol/L (98-107); GFR AFRICAN-AMERICAN > 60; GLUCOSE,RANDOM 100 mg/dL (75-110); MAGNESIUM 1.9 MG/DL (1.6-2.3); PHOSPHOROUS 3.3 mg/dl (2.5-4.5); POTASSIUM 4.1 MMOL/L (3.6-5.0); SODIUM 141 mmol/l (132-148); TOTAL PROTEIN 6.3 G/DL (6.3-8.2)
[2016-12-10 05:31] LABS: ABG ALLEN TEST YES; ABG MECHANICAL RATE 12; ARTERIAL BLOOD GAS MODE A/C; ARTERIAL BLOOD GAS PH 7.51 (7.35-7.45); ARTERIAL BLOOD GAS PO2 159 mm/Hg (80-100); ATERIAL BLOOD GAS PEEP 5
[2016-12-10 06:49] LABS: PARTIAL THROMBOPLASTIN TIME 35.7 Seconds (25.6-37.1)
[2016-12-10] MEDS: Albuterol-Ipratrop 3 mg / 0.5 (3 ml) UD INH SCH ×4 (07:47→20:02)
[2016-12-10] MEDS: Acetylcysteine 20% Inhal Soln (4ml) INH SCH ×3 (07:47→20:01)
[2016-12-10] MEDS: Meropenem 1 GM in Sodium Chloride 0.9% 100 ML IVPB SCH ×2 (08:45→22:11)
--- NOTE | 2016-12-10 10:29 | CP.CCUPN ---
CCU Subjective - Physician Review Subjective (Free Text): Awake, but not wholly interactive to verbal commands. Day #7 MV support. Breathing now at 18 on AC 12, TV 450, Peep 5, 40% oxygen, SPO2 100%. Did not tolerate CPAP PS breathing trials, with quick decompensation even up to PS level 0f 25. Further MV weans aborted for now and placed back to AC mode on PRVC. Other vitals and I/O's reviewed. No further tachyarrhythmias noted. Cardiac rhythm is sinus with PACs. No new fever spikes noted, temps mostly 98-99F. ROS: unobtainable from intubated patient. No other pertinent negs or positives on + system review. PMSFH: All Nursing and physician documentation reviewed to date; no new pertinent info noted relevant to current medical problems. CXR: (my interp) ETT position OK above shira, RLL infiltrate and LLL shows prominent interstitial changes. MAJOR PROBLEMS: 1. Acute Hypercapneic Resp Failure ( 2nd time intubation on 12/04, 1st time 11/20 -extubated 11/24) 2' Pneumonia 2. s/p Ventricular Arrhythmias, ?? 2' to Alkalosis 3. Staph Bacteremia 4. Fungemia 5. s/p Hypernatremia with Azotemia 6. Chronic Disease Anemia with Coagulopathy, and +FOBT (rec'd iii PRBCS on 12/04 -12/05) 7. s/ p Paroxysmal A Fib with RVR (12/05) PLAN: 1. Does not appear amenable to further MV weans or even extubation today. He had been tolerating longer periods of CPAP PS as evident on 12/08, but low TVs were mentioned. Todays CXR does not appear any worse (my interp) with persistent bibasilar interstitial changes. 2. Connie/ Flagyl PO, and Micafungin coverage noted. Repeat BCs (peripheral) are negative as of 12/06. New Triplett inserted on 12/04 which grew +Yeast. C. diff was negative on 12/01. 3. Marked elevation in GGT and progressive increases in Alk Phos noted. Will order bedside US study, would get GI and General Surg eval. Abdomen is benign on clinical exam. 4. Lasix prn. Try to keep negative fluid balance. ECHO done 12/08 cine-video reviewed. Official report mentions no presence of any vegetative disease. CCU Objective - Vital Signs / Intake & Output Vital Signs (Last 4 hours): Vital Signs Temp Pulse Resp BP Pulse Ox 12/10/16 08:00 99.1 F 96 H 18 132/68 100 Intake and Output (Last 8hrs): Intake & Output 12/09/16 12/10/16 12/10/16 22:59 06:59 14:59 Intake Total 1040 720 Output Total 1100 450 Balance -60 270 Intake: Intake, Piggyback 100 Oral 160 240 Tube Feeding 630 480 Free Water Flush 150 Output: Gastric Amount 0 Stomach 0 Urine 900 450 Urethral (Triplett) 900 450 Stool 200 - Physical Exam Head: Positive for: Normocephalic Pupils: Positive for: PERRL Extroacular Muscles: Positive for: EOMI. Negative for: Gaze Palsy Conjunctiva: Negative for: Injected, Icteric Mouth: Positive for: Moist Mucous Membranes Neck: Negative for: Meningeal Signs, JVD, Lymphadenopathy Respiratory/Chest: Positive for: Decreased Breath Sounds. Negative for: Accessory Muscle Use, Wheezes, Rhonchi Cardiovascular: Positive for: Regular Rate and Rhythm. Negative for: Murmurs, Rub Abdomen: Positive for: Normal Bowel Sounds. Negative for: Tenderness, Distention Lower Extremity: Positive for: Edema, Other (osteomyelitis of right foot). Negative for: CALF TENDERNESS, Cyanosis Neurological: Positive for: Motor Func Grossly Intact, Norm Deep Tendon Reflexes Skin: Positive for: Warm. Negative for: Rashes Psychiatric: Positive for: Alert. Negative for: Lethargic - Medications Active Medications: Active Medications Generic Name Dose Route Start Last Admin Trade Name Chester PRN Reason Stop Dose Admin Acetylcysteine 2 ml 11/27/16 20:00 12/10/16 07:47 Acetylcysteine 20% INH Not Given RBID LARRY Albuterol/Ipratropium 3 ml 12/09/16 12:00 12/10/16 07:47 Duoneb 3 Mg/0.5 Mg (3 Ml) Ud INH 3 ml RQID LARRY Administration Collagenase 1 applic 12/08/16 16:15 12/09/16 08:46 Santyl TOP 1 applic DAILY LARRY Administration Heparin Sodium (Porcine) 5,000 units 12/06/16 21:00 12/09/16 20:10 Heparin SC 5,000 units Q12 LARRY Administration Protocol Meropenem 1 gm/ Sodium 100 mls @ 100 mls/hr 12/08/16 10:00 12/09/16 20:12 Chloride IVPB 100 mls/hr Q12 LARRY Administration Voriconazole 300 mg/ Sodium 250 mls @ 125 mls/hr 12/10/16 09:00 Chloride IVPB Q12 LARRY Insulin Human Lispro 0 units 12/06/16 22:00 12/10/16 05:04 Humalog SC Not Given Q6 [facility] Protocol Metronidazole 500 mg 11/27/16 11:00 12/10/16 00:43 Flagyl PO 500 mg Q8 LARRY Administration Nystatin 1 applic 12/08/16 17:00 12/09/16 16:34 Nystop Topical Powder TOP 1 pow TID LARRY Administration Pantoprazole Sodium 40 mg 12/09/16 09:00 12/09/16 08:48 Protonix Inj IVP 40 mg DAILY LARRY Administration - Patient Studies Lab Studies: Microbiology Studies 12/06/16 17:30 Blood Culture - Preliminary Blood-Venous NO GROWTH AFTER 3 DAYS 12/06/16 17:50 Blood Culture - Preliminary Blood-Venous NO GROWTH AFTER 3 DAYS 12/04/16 00:10 Blood Culture - Final Blood-Venous Saccharomyces Cerevisiae Gram Stain - Final 12/04/16 00:10 S.aureus & Coag-Neg Staph PNA FISH - Final Blood-Venous Blood Culture - Final Saccharomyces Cerevisiae Gram Stain - Final Lab Studies 12/10/16 12/10/16 12/10/16 Range/Units 05:25 04:20 04:20 WBC 6.6 (4.8-10.8) K/uL RBC 2.82 L (4.40-5.90) Mil/uL Hgb 8.4 L (12.0-18.0) g/dL Hct 25.5 L (35.0-51.0) % MCV 90.3 (80.0-94.0) fl MCH 29.9 (27.0-31.0) pg MCHC 33.1 (33.0-37.0) g/dL RDW 16.7 H (11.5-14.5) % Plt Count 138 (130-400) K/uL MPV 9.8 (7.2-11.7) fl Neut % (Auto) 51.0 (50.0-75.0) % Lymph % (Auto) 39.3 (20.0-40.0) % Ralls % (Auto) 7.0 (0.0-10.0) % Eos % (Auto) 1.6 (0.0-4.0) % Baso % (Auto) 1.1 (0.0-2.0) % Neut # 3.4 (1.8-7.0) K/uL Lymph # 2.6 (1.0-4.3) K/uL Ralls # 0.5 (0.0-0.8) K/uL Eos # 0.1 (0.0-0.7) K/uL Baso # 0.1 (0.0-0.2) K/uL PT 13.2 H (9.8-13.1) Seconds INR 1.3 H (0.9-1.2) APTT 35.7 (25.6-37.1) Seconds pCO2 34 L (35-45) mm/Hg pO2 159 H (80-100) mm/Hg HCO3 28.0 (21-28) mmol/L ABG pH 7.51 H (7.35-7.45) ABG Total CO2 28.1 H (22-28) mmol/L ABG O2 Saturation 99.5 H (95-98) % ABG Base Excess 3.9 H (-2.0-3.0) mmol/L Torres Test Yes ABG Potassium 4.0 (3.6-5.2) mmol/L A-a O2 Difference 84.0 mm/Hg Glucose 103 (75-110) mg/dL Lactate 0.7 (0.7-2.1) mmol/L Vent Mode A/c Mechanical Rate 12 FiO2 40.0 % Tidal Volume 450 PEEP 5 Sodium 140.0 (132-148) mmol/l Potassium (3.6-5.0) MMOL/L Chloride 113.0 H (98-107) mmol/L Carbon Dioxide (22-30) mmol/L Anion Gap (10-20) BUN (9-20) mg/dl Creatinine (0.8-1.5) mg/dL Est GFR ( Amer) Est GFR (Non-Af Amer) POC Glucose (mg/dL) (65-110) mg/dL Random Glucose (75-110) mg/dL Calcium (8.4-10.2) mg/dL Phosphorus (2.5-4.5) mg/dl Magnesium (1.6-2.3) MG/DL Total Bilirubin (0.2-1.3) mg/dl GGT (8-78) U/L AST (17-59) U/L ALT (21-72) U/L Alkaline Phosphatase (38-126) U/L Total Protein (6.3-8.2) G/DL Albumin (3.5-5.0) g/dL Globulin (2.2-3.9) gm/dL Albumin/Globulin Ratio (1.0-2.1) Arterial Blood Potassium 4.0 (3.6-5.2) mmol/L 12/10/16 12/10/16 12/09/16 Range/Units 04:20 04:18 21:22 WBC (4.8-10.8) K/uL RBC (4.40-5.90) Mil/uL Hgb (12.0-18.0) g/dL Hct (35.0-51.0) % MCV (80.0-94.0) fl MCH (27.0-31.0) pg MCHC (33.0-37.0) g/dL RDW (11.5-14.5) % Plt Count (130-400) K/uL MPV (7.2-11.7) fl Neut % (Auto) (50.0-75.0) % Lymph % (Auto) (20.0-40.0) % Ralls % (Auto) (0.0-10.0) % Eos % (Auto) (0.0-4.0) % Baso % (Auto) (0.0-2.0) % Neut # (1.8-7.0) K/uL Lymph # (1.0-4.3) K/uL Ralls # (0.0-0.8) K/uL Eos # (0.0-0.7) K/uL Baso # (0.0-0.2) K/uL PT (9.8-13.1) Seconds INR (0.9-1.2) APTT (25.6-37.1) Seconds pCO2 (35-45) mm/Hg pO2 (80-100) mm/Hg HCO3 (21-28) mmol/L ABG pH (7.35-7.45) ABG Total CO2 (22-28) mmol/L ABG O2 Saturation (95-98) % ABG Base Excess (-2.0-3.0) mmol/L Torres Test ABG Potassium (3.6-5.2) mmol/L A-a O2 Difference mm/Hg Glucose (75-110) mg/dL Lactate (0.7-2.1) mmol/L Vent Mode Mechanical Rate FiO2 % Tidal Volume PEEP Sodium 141 (132-148) mmol/l Potassium 4.1 (3.6-5.0) MMOL/L Chloride 110 H (98-107) mmol/L Carbon Dioxide 25 (22-30) mmol/L Anion Gap 10 (10-20) BUN 31 H (9-20) mg/dl Creatinine 1.0 (0.8-1.5) mg/dL Est GFR ( Amer) > 60 Est GFR (Non-Af Amer) > 60 POC Glucose (mg/dL) 103 147 H (65-110) mg/dL Random Glucose 100 (75-110) mg/dL Calcium 7.7 L (8.4-10.2) mg/dL Phosphorus 3.3 (2.5-4.5) mg/dl Magnesium 1.9 (1.6-2.3) MG/DL Total Bilirubin 0.3 (0.2-1.3) mg/dl GGT (8-78) U/L AST 24 (17-59) U/L ALT 21 (21-72) U/L Alkaline Phosphatase 877 H (38-126) U/L Total Protein 6.3 (6.3-8.2) G/DL Albumin 2.2 L (3.5-5.0) g/dL Globulin 4.2 H (2.2-3.9) gm/dL Albumin/Globulin Ratio 0.5 L (1.0-2.1) Arterial Blood Potassium (3.6-5.2) mmol/L 12/09/16 12/09/16 12/09/16 Range/Units 16:20 11:04 05:00 WBC (4.8-10.8) K/uL RBC (4.40-5.90) Mil/uL Hgb (12.0-18.0) g/dL Hct (35.0-51.0) % MCV (80.0-94.0) fl MCH (27.0-31.0) pg MCHC (33.0-37.0) g/dL RDW (11.5-14.5) % Plt Count (130-400) K/uL MPV (7.2-11.7) fl Neut % (Auto) (50.0-75.0) % Lymph % (Auto) (20.0-40.0) % Ralls % (Auto) (0.0-10.0) % Eos % (Auto) (0.0-4.0) % Baso % (Auto) (0.0-2.0) % Neut # (1.8-7.0) K/uL Lymph # (1.0-4.3) K/uL Ralls # (0.0-0.8) K/uL Eos # (0.0-0.7) K/uL Baso # (0.0-0.2) K/uL PT (9.8-13.1) Seconds INR (0.9-1.2) APTT (25.6-37.1) Seconds pCO2 (35-45) mm/Hg pO2 (80-100) mm/Hg HCO3 (21-28) mmol/L ABG pH (7.35-7.45) ABG Total CO2 (22-28) mmol/L ABG O2 Saturation (95-98) % ABG Base Excess (-2.0-3.0) mmol/L Torres Test ABG Potassium (3.6-5.2) mmol/L A-a O2 Difference mm/Hg Glucose (75-110) mg/dL Lactate (0.7-2.1) mmol/L Vent Mode Mechanical Rate FiO2 % Tidal Volume PEEP Sodium (132-148) mmol/l Potassium (3.6-5.0) MMOL/L Chloride (98-107) mmol/L Carbon Dioxide (22-30) mmol/L Anion Gap (10-20) BUN (9-20) mg/dl Creatinine (0.8-1.5) mg/dL Est GFR ( Amer) Est GFR (Non-Af Amer) POC Glucose (mg/dL) 111 H 149 H (65-110) mg/dL Random Glucose (75-110) mg/dL Calcium (8.4-10.2) mg/dL Phosphorus (2.5-4.5) mg/dl Magnesium (1.6-2.3) MG/DL Total Bilirubin (0.2-1.3) mg/dl GGT 1262 H (8-78) U/L AST (17-59) U/L ALT (21-72) U/L Alkaline Phosphatase (38-126) U/L Total Protein (6.3-8.2) G/DL Albumin (3.5-5.0) g/dL Globulin (2.2-3.9) gm/dL Albumin/Globulin Ratio (1.0-2.1) Arterial Blood Potassium (3.6-5.2) mmol/L Laboratory Results - last 24 hr 12/09/16 12/09/16 12/09/16 05:00 11:04 16:20 WBC RBC Hgb Hct MCV MCH MCHC RDW Plt Count MPV Neut % (Auto) Lymph % (Auto) Ralls % (Auto) Eos % (Auto) Baso % (Auto) Neut # Lymph # Ralls # Eos # Baso # PT INR APTT pCO2 pO2 HCO3 ABG pH ABG Total CO2 ABG O2 Saturation ABG Base Excess Torres Test ABG Potassium A-a O2 Difference Glucose Lactate Vent Mode Mechanical Rate FiO2 Tidal Volume PEEP Sodium Potassium Chloride Carbon Dioxide Anion Gap BUN Creatinine Est GFR ( Amer) Est GFR (Non-Af Amer) POC Glucose (mg/dL) 149 H 111 H Random Glucose Calcium Phosphorus Magnesium Total Bilirubin GGT 1262 H AST ALT Alkaline Phosphatase Total Protein Albumin Globulin Albumin/Globulin Ratio Arterial Blood Potassium 12/09/16 12/10/16 12/10/16 21:22 04:18 04:20 WBC RBC Hgb Hct MCV MCH MCHC RDW Plt Count MPV Neut % (Auto) Lymph % (Auto) Ralls % (Auto) Eos % (Auto) Baso % (Auto) Neut # Lymph # Ralls # Eos # Baso # PT INR APTT pCO2 pO2 HCO3 ABG pH ABG Total CO2 ABG O2 Saturation ABG Base Excess Torres Test ABG Potassium A-a O2 Difference Glucose Lactate Vent Mode Mechanical Rate FiO2 Tidal Volume PEEP Sodium 141 Potassium 4.1 Chloride 110 H Carbon Dioxide 25 Anion Gap 10 BUN 31 H Creatinine 1.0 Est GFR ( Amer) > 60 Est GFR (Non-Af Amer) > 60 POC Glucose (mg/dL) 147 H 103 Random Glucose 100 Calcium 7.7 L Phosphorus 3.3 Magnesium 1.9 Total Bilirubin 0.3 GGT AST 24 ALT 21 Alkaline Phosphatase 877 H Total Protein 6.3 Albumin 2.2 L Globulin 4.2 H Albumin/Globulin Ratio 0.5 L Arterial Blood Potassium 12/10/16 12/10/16 12/10/16 04:20 04:20 05:25 WBC 6.6 RBC 2.82 L Hgb 8.4 L Hct 25.5 L MCV 90.3 MCH 29.9 MCHC 33.1 RDW 16.7 H Plt Count 138 MPV 9.8 Neut % (Auto) 51.0 Lymph % (Auto) 39.3 Ralls % (Auto) 7.0 Eos % (Auto) 1.6 Baso % (Auto) 1.1 Neut # 3.4 Lymph # 2.6 Ralls # 0.5 Eos # 0.1 Baso # 0.1 PT 13.2 H INR 1.3 H APTT 35.7 pCO2 34 L pO2 159 H HCO3 28.0 ABG pH 7.51 H ABG Total CO2 28.1 H ABG O2 Saturation 99.5 H ABG Base Excess 3.9 H Torres Test Yes ABG Potassium 4.0 A-a O2 Difference 84.0 Glucose 103 Lactate 0.7 Vent Mode A/c Mechanical Rate 12 FiO2 40.0 Tidal Volume 450 PEEP 5 Sodium 140.0 Potassium Chloride 113.0 H Carbon Dioxide Anion Gap BUN Creatinine Est GFR ( Amer) Est GFR (Non-Af Amer) POC Glucose (mg/dL) Random Glucose Calcium Phosphorus Magnesium Total Bilirubin GGT AST ALT Alkaline Phosphatase Total Protein Albumin Globulin Albumin/Globulin Ratio Arterial Blood Potassium 4.0 Fingerstick Blood Sugar Results: 103 Review of Systems - Review of Systems All systems: reviewed and no additional remarkable complaints except (as above) Critical Care Progress Note - Ventilator Checklist Head of Bed 30 Degrees: Yes Daily Sedation Vacation: Yes Daily Assessment of Readiness to Wean: Yes Daily Spontaneous Breathing Trial: Yes PUD Prophalyxis: Yes DVT Prophylaxis: Yes Oral Care with Chlorhexidine Gluconate {CHG}: Yes - Vent Settings MODE:: ASSIST CONTROL TIDAL VOLUME:: 450 RESP RATE:: 12 FIO2:: 40 PEEP:: 5 - Extremities/Vascular Does the Patient have a Central Venous Catheter?: Yes Insertion Site: RUE PICC Does the Patient need a Central Venous Catheter?: Yes Does the Patient have a Triplett Catheter?: Yes Does the Patient need a Triplett Catheter?: Yes Catheter Insertion Criteria: Need for accurate measurement of output in critically ill patient - Restraints Justification for Restraints: High risk for self extubation, High risk for removing IV access, High risk for harming self - Prophylaxis GI Prophylaxis GI: PPI - Prophylaxis DVT Prophylaxis DVT: SCDs
--- NOTE | 2016-12-10 11:06 | RAD ---
HISTORY: intubated COMPARISON: 12/09/2016 FINDINGS: Endotracheal tube terminates 4.5 cm proximal to the shira. The nasogastric tube terminates in the stomach. The right PICC line terminates in the SVC. LUNGS: The lungs are well inflated. There is interval improved aeration in the right lower lobe. There is confluent airspace disease in the left lower lobe. There is severe pulmonary venous congestion. PLEURA: No significant pleural effusion identified, no pneumothorax apparent. CARDIOVASCULAR: Normal. OSSEOUS STRUCTURES: No significant abnormalities. VISUALIZED UPPER ABDOMEN: Normal. OTHER FINDINGS: None. IMPRESSION: 1. Improving right lower lobe pneumonia. 2. Developing left lower lobe pneumonia. Follow-up is advised. 3. Stable position of endotracheal tube, nasogastric tube and right PICC line.
--- NOTE | 2016-12-10 11:42 | CARD ---
APPROVED REPORT EKG Measurement Heart [id number] [place] 130P0 [id number] <Conclusion> Sinus rhythm with premature supraventricular complexes and with occasional premature ventricular complexes Prolonged QT Abnormal ECG
--- NOTE | 2016-12-10 12:06 | CP.PCM.PN ---
Subjective - Date & Time of Evaluation Date of Evaluation: 12/10/16 Time of Evaluation: 12:04 - Subjective Subjective: Clinically no significant changes reported Vital sign noted stable Serum creatinine came down to 1.0 serum sodium corrected electrolyte much better Acute kidney injury recovering and The rest of the complicated medical problem as noted in the ICU notes s/p Ventricular Arrhythmias, 3. Staph Bacteremia 4. Fungemia 5. s/p Hypernatremia with Azotemia 6. Chronic Disease Anemia with Coagulopathy, and +FOBT (rec'd iii PRBCS on 12/04 -12/05) 7. s/ p Paroxysmal A Fib with RVR (12/05) Plan continue to monitor electrolyte and kidney function Gentle hydration We will follow intermittently or as needed Objective - Vital Signs/Intake and Output Vital Signs (last 24 hours): Temp Pulse Resp BP Pulse Ox 99.1 F 96 H 18 132/68 100 12/10/16 08:00 12/10/16 08:00 12/10/16 08:00 12/10/16 08:00 12/10/16 08:00 Intake and Output: 12/10/16 12/10/16 06:59 18:59 Intake Total 1440 Output Total 450 Balance 990 - Medications Medications: Current Medications Acetylcysteine (Acetylcysteine 20%) 2 ml INH RBID [facility] Last Admin: 12/10/16 07:47 Dose: Not Given Albuterol/Ipratropium (Duoneb 3 Mg/0.5 Mg (3 Ml) Ud) 3 ml INH RQID [facility] Last Admin: 12/10/16 11:39 Dose: 3 ml Collagenase (Santyl) 1 applic TOP DAILY [facility] Last Admin: 12/09/16 08:46 Dose: 1 applic Heparin Sodium (Porcine) (Heparin) 5,000 units SC Q12 LARRY PRN Reason: Protocol Last Admin: 12/09/16 20:10 Dose: 5,000 units Meropenem 1 gm/ Sodium (Chloride) 100 mls @ 100 mls/hr IVPB Q12 [facility] Last Admin: 12/09/16 20:12 Dose: 100 mls/hr Voriconazole 300 mg/ Sodium (Chloride) 250 mls @ 125 mls/hr IVPB Q12 [facility] Insulin Human Lispro (Humalog) 0 units SC Q6 LARRY PRN Reason: Protocol Last Admin: 12/10/16 05:04 Dose: Not Given Metronidazole (Flagyl) 500 mg PO Q8 [facility] Last Admin: 12/10/16 00:43 Dose: 500 mg Nystatin (Nystop Topical Powder) 1 applic TOP TID [facility] Last Admin: 12/09/16 16:34 Dose: 1 pow Pantoprazole Sodium (Protonix Inj) 40 mg IVP DAILY [facility] Last Admin: 12/09/16 08:48 Dose: 40 mg - Labs Labs: 12/10/16 04:20 12/10/16 04:20 PT 13.2 Seconds (9.8-13.1) H 12/10/16 04:20 INR 1.3 (0.9-1.2) H 12/10/16 04:20 APTT 35.7 Seconds (25.6-37.1) 12/10/16 04:20 Assessment and Plan (1) GEORGINA (acute kidney injury) Status: Acute (2) Acute hypercapnic respiratory failure Status: Acute (3) Leukocytosis Status: Acute (4) Pneumonia Status: Acute
--- NOTE | 2016-12-10 14:26 | CP.PCM.PN ---
Subjective - Date & Time of Evaluation Date of Evaluation: 12/10/16 Time of Evaluation: 13:00 - Subjective Subjective: ID note- Pt. seen and examined today in ICU. remains intubated but is awake . does not follow commands. Objective - Vital Signs/Intake and Output Vital Signs (last 24 hours): Temp Pulse Resp BP Pulse Ox 99.4 F 98 H 17 127/56 L 100 12/10/16 12:00 12/10/16 12:00 12/10/16 12:00 12/10/16 12:00 12/10/16 12:00 Intake and Output: 12/10/16 12/10/16 06:59 18:59 Intake Total 1440 Output Total 450 Balance 990 - Medications Medications: Current Medications Acetylcysteine (Acetylcysteine 20%) 2 ml INH RBID [facility] Last Admin: 12/10/16 07:47 Dose: Not Given Albuterol/Ipratropium (Duoneb 3 Mg/0.5 Mg (3 Ml) Ud) 3 ml INH RQID [facility] Last Admin: 12/10/16 11:39 Dose: 3 ml Collagenase (Santyl) 1 applic TOP DAILY [facility] Last Admin: 12/09/16 08:46 Dose: 1 applic Heparin Sodium (Porcine) (Heparin) 5,000 units SC Q12 LARRY PRN Reason: Protocol Last Admin: 12/09/16 20:10 Dose: 5,000 units Meropenem 1 gm/ Sodium (Chloride) 100 mls @ 100 mls/hr IVPB Q12 [facility] Last Admin: 12/09/16 20:12 Dose: 100 mls/hr Voriconazole 300 mg/ Sodium (Chloride) 250 mls @ 125 mls/hr IVPB Q12 [facility] Insulin Human Lispro (Humalog) 0 units SC Q6 LARRY PRN Reason: Protocol Last Admin: 12/10/16 05:04 Dose: Not Given Metronidazole (Flagyl) 500 mg PO Q8 [facility] Last Admin: 12/10/16 00:43 Dose: 500 mg Nystatin (Nystop Topical Powder) 1 applic TOP TID [facility] Last Admin: 12/09/16 16:34 Dose: 1 pow Pantoprazole Sodium (Protonix Inj) 40 mg IVP DAILY [facility] Last Admin: 12/09/16 08:48 Dose: 40 mg - Labs Labs: - Additional Findings Additional findings: - Constitutional Appears: Chronically Ill - ENT Exam Additional comments: ET tube in place has OGT as well - Neck Exam Additional comments: supple - Respiratory Exam Additional comments: intubated and on the vent - Cardiovascular Exam Cardiovascular Exam: RRR, +S1, +S2 - GI/Abdominal Exam GI & Abdominal Exam: Soft, Normal Bowel Sounds Additional comments: ND, NT - Extremities Exam Additional comments: dry b/l heel ulcers, no discharge - Neurological Exam Additional comments: intubated but awake Lines- right arm picc line placed on 11/06/2016 no cath rectal tube OG tube ET tube Laboratory Results - last 72 hr 12/07/16 12/07/16 12/08/16 15:49 21:06 04:20 WBC RBC Hgb Hct MCV MCH MCHC RDW Plt Count MPV Neut % (Auto) Lymph % (Auto) [place] % (Auto) Eos % (Auto) Baso % (Auto) Neut # Lymph # [place] # Eos # Baso # PT INR APTT pCO2 pO2 HCO3 ABG pH ABG Total CO2 ABG O2 Saturation ABG O2 Content ABG Base Excess ABG Hemoglobin ABG Carboxyhemoglobin POC ABG HHb (Measured) ABG Methemoglobin ABG O2 Capacity Torres Test ABG Potassium A-a O2 Difference Hgb O2 Saturation Glucose Lactate Vent Mode Mechanical Rate FiO2 Tidal Volume PEEP Sodium 141 Potassium 3.5 L Chloride 110 H Carbon Dioxide 23 Anion Gap 12 BUN 32 H Creatinine 1.4 Est GFR ( Amer) > 60 Est GFR (Non-Af Amer) 50 POC Glucose (mg/dL) 131 H 162 H Random Glucose 124 H Calcium 7.2 L Phosphorus 2.4 L Magnesium 1.6 Total Bilirubin 0.5 GGT AST 26 ALT 22 Alkaline Phosphatase 672 H Total Protein 6.1 L Albumin 2.1 L Globulin 4.1 H Albumin/Globulin Ratio 0.5 L Arterial Blood Potassium 12/08/16 12/08/16 12/08/16 04:20 05:01 06:09 WBC 7.0 RBC 2.78 L Hgb 8.3 L Hct 24.9 L MCV 89.6 MCH 29.8 MCHC 33.3 RDW 16.4 H Plt Count 96 L MPV Neut % (Auto) Lymph % (Auto) [place] % (Auto) Eos % (Auto) Baso % (Auto) Neut # Lymph # [place] # Eos # Baso # PT INR APTT pCO2 28 L pO2 157 H HCO3 26.3 ABG pH 7.54 H ABG Total CO2 24.8 ABG O2 Saturation 100.4 H ABG O2 Content 12.5 L ABG Base Excess 1.7 ABG Hemoglobin 8.9 L ABG Carboxyhemoglobin 1.3 POC ABG HHb (Measured) -0.4 L ABG Methemoglobin 2.1 ABG O2 Capacity 12.5 L Torres Test Yes ABG Potassium A-a O2 Difference 93.0 Hgb O2 Saturation 97.1 Glucose Lactate Vent Mode A/c Mechanical Rate 12 FiO2 40.0 Tidal Volume 450 PEEP 5 Sodium Potassium Chloride Carbon Dioxide Anion Gap BUN Creatinine Est GFR ( Amer) Est GFR (Non-Af Amer) POC Glucose (mg/dL) 144 H Random Glucose Calcium Phosphorus Magnesium Total Bilirubin GGT AST ALT Alkaline Phosphatase Total Protein Albumin Globulin Albumin/Globulin Ratio Arterial Blood Potassium 12/08/16 12/08/16 12/08/16 11:18 16:39 22:19 WBC RBC Hgb Hct MCV MCH MCHC RDW Plt Count MPV Neut % (Auto) Lymph % (Auto) [place] % (Auto) Eos % (Auto) Baso % (Auto) Neut # Lymph # [place] # Eos # Baso # PT INR APTT pCO2 pO2 HCO3 ABG pH ABG Total CO2 ABG O2 Saturation ABG O2 Content ABG Base Excess ABG Hemoglobin ABG Carboxyhemoglobin POC ABG HHb (Measured) ABG Methemoglobin ABG O2 Capacity Torres Test ABG Potassium A-a O2 Difference Hgb O2 Saturation Glucose Lactate Vent Mode Mechanical Rate FiO2 Tidal Volume PEEP Sodium Potassium Chloride Carbon Dioxide Anion Gap BUN Creatinine Est GFR ( Amer) Est GFR (Non-Af Amer) POC Glucose (mg/dL) 142 H 150 H 147 H Random Glucose Calcium Phosphorus Magnesium Total Bilirubin GGT AST ALT Alkaline Phosphatase Total Protein Albumin Globulin Albumin/Globulin Ratio Arterial Blood Potassium 12/09/16 12/09/16 12/09/16 05:00 05:00 05:00 WBC 7.1 RBC 2.95 L Hgb 8.9 L Hct 26.7 L MCV 90.3 MCH 30.1 MCHC 33.3 RDW 16.8 H Plt Count 120 L D MPV Neut % (Auto) Lymph % (Auto) [place] % (Auto) Eos % (Auto) Baso % (Auto) Neut # Lymph # [place] # Eos # Baso # PT INR APTT pCO2 pO2 HCO3 ABG pH ABG Total CO2 ABG O2 Saturation ABG O2 Content ABG Base Excess ABG Hemoglobin ABG Carboxyhemoglobin POC ABG HHb (Measured) ABG Methemoglobin ABG O2 Capacity Torres Test ABG Potassium A-a O2 Difference Hgb O2 Saturation Glucose Lactate Vent Mode Mechanical Rate FiO2 Tidal Volume PEEP Sodium 140 Potassium 3.5 L Chloride 108 H Carbon Dioxide 23 Anion Gap 13 BUN 31 H Creatinine 1.1 Est GFR ( Amer) > 60 Est GFR (Non-Af Amer) > 60 POC Glucose (mg/dL) Random Glucose 118 H Calcium 7.4 L Phosphorus 3.0 Magnesium 1.9 Total Bilirubin 0.4 GGT 1262 H AST 23 ALT 20 L Alkaline Phosphatase 756 H Total Protein 6.3 Albumin 2.2 L Globulin 4.1 H Albumin/Globulin Ratio 0.5 L Arterial Blood Potassium 12/09/16 12/09/16 12/09/16 05:01 05:30 11:04 WBC RBC Hgb Hct MCV MCH MCHC RDW Plt Count MPV Neut % (Auto) Lymph % (Auto) [place] % (Auto) Eos % (Auto) Baso % (Auto) Neut # Lymph # [place] # Eos # Baso # PT INR APTT pCO2 38 pO2 145 H HCO3 26.2 ABG pH 7.44 ABG Total CO2 27.0 ABG O2 Saturation 100.2 H ABG O2 Content 14.1 L ABG Base Excess 1.6 ABG Hemoglobin 10.1 L ABG Carboxyhemoglobin 1.3 POC ABG HHb (Measured) -0.2 L ABG Methemoglobin 1.3 ABG O2 Capacity 14.1 L Torres Test Yes ABG Potassium A-a O2 Difference 93.0 Hgb O2 Saturation 97.5 Glucose Lactate Vent Mode A/c Mechanical Rate 12 FiO2 40.0 Tidal Volume 450 PEEP 5 Sodium Potassium Chloride Carbon Dioxide Anion Gap BUN Creatinine Est GFR ( Amer) Est GFR (Non-Af Amer) POC Glucose (mg/dL) 118 H 149 H Random Glucose Calcium Phosphorus Magnesium Total Bilirubin GGT AST ALT Alkaline Phosphatase Total Protein Albumin Globulin Albumin/Globulin Ratio Arterial Blood Potassium 12/09/16 12/09/16 12/10/16 16:20 21:22 04:18 WBC RBC Hgb Hct MCV MCH MCHC RDW Plt Count MPV Neut % (Auto) Lymph % (Auto) [place] % (Auto) Eos % (Auto) Baso % (Auto) Neut # Lymph # [place] # Eos # Baso # PT INR APTT pCO2 pO2 HCO3 ABG pH ABG Total CO2 ABG O2 Saturation ABG O2 Content ABG Base Excess ABG Hemoglobin ABG Carboxyhemoglobin POC ABG HHb (Measured) ABG Methemoglobin ABG O2 Capacity Torres Test ABG Potassium A-a O2 Difference Hgb O2 Saturation Glucose Lactate Vent Mode Mechanical Rate FiO2 Tidal Volume PEEP Sodium Potassium Chloride Carbon Dioxide Anion Gap BUN Creatinine Est GFR ( Amer) Est GFR (Non-Af Amer) POC Glucose (mg/dL) 111 H 147 H 103 Random Glucose Calcium Phosphorus Magnesium Total Bilirubin GGT AST ALT Alkaline Phosphatase Total Protein Albumin Globulin Albumin/Globulin Ratio Arterial Blood Potassium 12/10/16 12/10/16 12/10/16 04:20 04:20 04:20 WBC 6.6 RBC 2.82 L Hgb 8.4 L Hct 25.5 L MCV 90.3 MCH 29.9 MCHC 33.1 RDW 16.7 H Plt Count 138 MPV 9.8 Neut % (Auto) 51.0 Lymph % (Auto) 39.3 [place] % (Auto) 7.0 Eos % (Auto) 1.6 Baso % (Auto) 1.1 Neut # 3.4 Lymph # 2.6 [place] # 0.5 Eos # 0.1 Baso # 0.1 PT 13.2 H INR 1.3 H APTT 35.7 pCO2 pO2 HCO3 ABG pH ABG Total CO2 ABG O2 Saturation ABG O2 Content ABG Base Excess ABG Hemoglobin ABG Carboxyhemoglobin POC ABG HHb (Measured) ABG Methemoglobin ABG O2 Capacity Torres Test ABG Potassium A-a O2 Difference Hgb O2 Saturation Glucose Lactate Vent Mode Mechanical Rate FiO2 Tidal Volume PEEP Sodium 141 Potassium 4.1 Chloride 110 H Carbon Dioxide 25 Anion Gap 10 BUN 31 H Creatinine 1.0 Est GFR ( Amer) > 60 Est GFR (Non-Af Amer) > 60 POC Glucose (mg/dL) Random Glucose 100 Calcium 7.7 L Phosphorus 3.3 Magnesium 1.9 Total Bilirubin 0.3 GGT 1703 H AST 24 ALT 21 Alkaline Phosphatase 877 H Total Protein 6.3 Albumin 2.2 L Globulin 4.2 H Albumin/Globulin Ratio 0.5 L Arterial Blood Potassium 12/10/16 12/10/16 05:25 11:10 WBC RBC Hgb Hct MCV MCH MCHC RDW Plt Count MPV Neut % (Auto) Lymph % (Auto) [place] % (Auto) Eos % (Auto) Baso % (Auto) Neut # Lymph # [place] # Eos # Baso # PT INR APTT pCO2 34 L pO2 159 H HCO3 28.0 ABG pH 7.51 H ABG Total CO2 28.1 H ABG O2 Saturation 99.5 H ABG O2 Content ABG Base Excess 3.9 H ABG Hemoglobin ABG Carboxyhemoglobin POC ABG HHb (Measured) ABG Methemoglobin ABG O2 Capacity Torres Test Yes ABG Potassium 4.0 A-a O2 Difference 84.0 Hgb O2 Saturation Glucose 103 Lactate 0.7 Vent Mode A/c Mechanical Rate 12 FiO2 40.0 Tidal Volume 450 PEEP 5 Sodium 140.0 Potassium Chloride 113.0 H Carbon Dioxide Anion Gap BUN Creatinine Est GFR ( Amer) Est GFR (Non-Af Amer) POC Glucose (mg/dL) 128 H Random Glucose Calcium Phosphorus Magnesium Total Bilirubin GGT AST ALT Alkaline Phosphatase Total Protein Albumin Globulin Albumin/Globulin Ratio Arterial Blood Potassium 4.0 Microbiology 12/06/16 17:30 Blood-Venous Blood Culture - Preliminary NO GROWTH AFTER 3 DAYS 12/06/16 17:50 Blood-Venous Blood Culture - Preliminary NO GROWTH AFTER 3 DAYS 12/04/16 00:10 Blood-Venous Blood Culture - Final Saccharomyces Cerevisiae 12/04/16 00:10 Blood-Venous Gram Stain - Final 12/04/16 00:10 Blood-Venous S.aureus & Coag-Neg Staph PNA FISH - Final 12/04/16 00:10 Blood-Venous Blood Culture - Final Saccharomyces Cerevisiae 12/04/16 00:10 Blood-Venous Gram Stain - Final 12/04/16 14:00 Blood S.aureus & Coag-Neg Staph PNA FISH - Final 12/04/16 14:00 Blood Blood Culture - Final Saccharomyces Cerevisiae 12/04/16 14:00 Blood Gram Stain - Final 12/04/16 18:00 Blood-Thru Central Line S.aureus & Coag-Neg Staph PNA FISH - Final 12/04/16 18:00 Blood-Thru Central Line Blood Culture - Final Saccharomyces Cerevisiae 12/04/16 18:00 Blood-Thru Central Line Gram Stain - Final 12/04/16 16:50 Urine,No Urine Culture - Final Yeast Species 12/04/16 17:00 Trachasp Sputum Culture - Final NORMAL ORAL ROSEMARY 12/04/16 18:00 Naris MRSA Culture (Admit) - Final MRSA DETECTED 12/04/16 02:05 Urine,No Urine Culture - Final Yeast Species 11/26/16 20:01 Nose MRSA Culture (Admit) - Final MRSA NOT DETECTED 11/20/16 10:00 Blood-Venous Blood Culture - Final NO GROWTH AFTER 5 DAYS 11/20/16 10:00 Blood-Venous Gram Stain - Final TEST NOT PERFORMED 11/21/16 10:00 Trachasp Gram Stain - Final 11/21/16 10:00 Trachasp Sputum Culture - Final Klebsiella Pneumoniae Ssp Pneu 11/20/16 15:00 Nose MRSA Culture (Admit) - Final MRSA NOT DETECTED 11/20/16 01:57 Urine,No Urine Culture - Final No Growth (<1,000 CFU/ML) Accession No. : [id number] Patient Name / ID : GRACE ANTON / [id number] Exam Date : 12/10/2016 04:08:41 ( Approved ) Study Comment : Sex / Age : M / [id number] Creator : RAMONA BOYCE MD Dictator : RAMONA BOYCE MD Dry Box Tender : Laser Engraver : RAMONA BOYCE MD Approver2 : Report Date : 12/10/2016 11:00:47 My Comment : HISTORY: intubated COMPARISON: 12/09/2016 FINDINGS: Endotracheal tube terminates 4.5 cm proximal to the shira. The nasogastric tube terminates in the stomach. The right PICC line terminates in the SVC. LUNGS: The lungs are well inflated. There is interval improved aeration in the right lower lobe. There is confluent airspace disease in the left lower lobe. There is severe pulmonary venous congestion. PLEURA: No significant pleural effusion identified, no pneumothorax apparent. CARDIOVASCULAR: Normal. OSSEOUS STRUCTURES: No significant abnormalities. VISUALIZED UPPER ABDOMEN: Normal. OTHER FINDINGS: None. IMPRESSION: 1. Improving right lower lobe pneumonia. 2. Developing left lower lobe pneumonia. Follow-up is advised. 3. Stable position of endotracheal tube, nasogastric tube and right PICC line. Assessment and Plan (1) Respiratory failure Status: Acute (2) Septic shock Status: Acute (3) GEORGINA (acute kidney injury) Status: Acute (4) Leukocytosis Status: Acute - Assessment and Plan (Free Text) Assessment: A/P- low grade temp normal wbc count blood cx from 12/04/2016- yeast from both central line and peripheral and urine cx- yeast (new) previous sputum cx from trach- Klebsiella brower sensitive + stool c.diff. repeat stool c.diff- negative tox and AG cxr-Right effusion and ? infiltrate as per report A/P- pneumonia/resp distress fungemia c.diff - resolved fungurea remains intubated but on 40 % Fio2 only afebrile normal wbc count blood cx from 12/04/2016- finalized as sacharomycees x 2( one from TLC and one from peripheral) repeat blood cx 12/06/3016- negative x 2 urine cx- yeast (new) previous sputum cx from trach- Klebsiella brower sensitive + stool c.diff. repeat stool c.diff- negative tox and AG Plan- continue with meropenem for HAP , day #4. completed 2 days of Micafungin for fungemia but once yeast was ID as sacharomyces was switched to voriconazole. had advised to refrain from putting another TLC or any picc line for at least 24 hours while on IV antifungals, but pt. has picc line that apparently was placed on 11/06. echo- no vegetations as per report. rise in ALp. advise to check abd ct or US . may need to hold the OG tube feeds till abd Ct is done. 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 upon research there are few reported cases on [employer] which have noted a possible elationship between certain probiotics and sacharomyces . patient here not on probiotics. advise to avoid probiotics. advise to make sure there is no esophageal leak , check ct or US. continue with voriconazole. might be contaminant since pt. is afebrile and has normal wbc count, however, advise to continue with antifungal medication. advise to get optho for fundoscopic exam in light of the fungemia. if we can get peripheral line still advise to d/c picc line for at least 24 hours to sterilize the blood with antifungals. check 2 more blood cx. all above d/w Whiskey Proof Reader at length. ICU time 45 minutes.
[2016-12-10] MEDS: Santyl Collagenase OINTMENT TOP SCH (14:49)
--- NOTE | 2016-12-10 15:08 | CP.PCM.CON ---
<SathishJaleesaValLay - Last Filed: 12/10/16 15:10> History of Present Illness - History of Present Illness History of Present Illness: Surgery: Dr. Carreon Reason for consult: Elevated LFTs HPI: Patient is a 71 y/o male currently intubated in ICU being treated for Cdiff colitis, fungemia, and bacteremia found to have elevated LFTs, Alk phos and GGT. History obtained mainly from record and ICU attending. No clinical evidence of abdominal pain. Patient has been tolerating tube feeds without high residuals and per reports has not required TPN. Patient was transferred to ICU on Monday 12/04 after COMPUTER SYSTEMS ARCHITECT was called for hypotension. Patient got intubated on the floor and has remained intubated since. Patient unable to tolerate CPAP so extubation attempts have been unsuccessful. Patient initially was requiring pressor support however has since been weaned off and in hemodynamic stability. PMH: HTN, A Fib, HLD, DMII, DM Neuropathy, CKD, PVD, anemia, Dementia, Osteomyelitis, Avascular Necrosis R Hip PSH: unknown Social: prior documented history of ETOH abuse, lives in [facility] Review of Systems - Review of Systems Systems not reviewed;Unavailable: Intubated Past Patient History - Past Medical History & Family History Past Medical History?: Yes - Past Social History Smoking Status: Light Smoker < 10 Cigarettes Daily Chewing Tobacco Use: No Cigar Use: No Alcohol: Social Drugs: Denies Home Situation {Lives}: Alf - CARDIAC Hx Cardiac Disorders: Yes Hx Atrial Fibrillation: Yes Hx Hypercholesterolemia: Yes Hx Hypertension: Yes Hx Peripheral Vascular Disease: Yes - PULMONARY Hx Respiratory Disorders: No - NEUROLOGICAL Hx Neurological Disorder: Yes Hx Dementia: Yes - HEENT Hx HEENT Problems: No - RENAL Hx Chronic Kidney Disease: Yes - ENDOCRINE/METABOLIC Hx Endocrine Disorders: Yes Hx Diabetes Mellitus Type 2: Yes - HEMATOLOGICAL/ONCOLOGICAL Hx Blood Disorders: Yes Hx Anemia: Yes - INTEGUMENTARY Hx Dermatological Problems: No - MUSCULOSKELETAL/RHEUMATOLOGICAL Hx Musculoskeletal Disorders: Yes (R hip pain) Hx Falls: Yes Hx Osteomyelitis: Yes (R foot) Hx Unsteady Gait: Yes - GASTROINTESTINAL Hx Gastrointestinal Disorders: No - GENITOURINARY/GYNECOLOGICAL Hx Genitourinary Disorders: Yes Hx Urinary Tract Infection: Yes - PSYCHIATRIC Hx Psychophysiologic Disorder: No Hx Substance Use: No - SURGICAL HISTORY Hx Surgeries: No - ANESTHESIA Hx Anesthesia: No Hx Anesthesia Reactions: No Hx Malignant Hyperthermia: No Meds Allergies/Adverse Reactions: Allergies Allergy/AdvReac Type Severity Reaction Status Date / Time No Known Allergies Allergy Verified 10/05/16 16:18 - Medications Medications: Current Medications Acetylcysteine (Acetylcysteine 20%) 2 ml INH RBID [facility] Last Admin: 12/10/16 07:47 Dose: Not Given Albuterol/Ipratropium (Duoneb 3 Mg/0.5 Mg (3 Ml) Ud) 3 ml INH RQID [facility] Last Admin: 12/10/16 11:39 Dose: 3 ml Collagenase (Santyl) 1 applic TOP DAILY [facility] Last Admin: 12/10/16 14:49 Dose: 1 applic Heparin Sodium (Porcine) (Heparin) 5,000 units SC Q12 [facility] PRN Reason: Protocol Last Admin: 12/10/16 08:45 Dose: 5,000 units Meropenem 1 gm/ Sodium (Chloride) 100 mls @ 100 mls/hr IVPB Q12 [facility] Last Admin: 12/10/16 08:45 Dose: 100 mls/hr Voriconazole 300 mg/ Sodium (Chloride) 250 mls @ 125 mls/hr IVPB Q12 [facility] Last Admin: 12/10/16 13:14 Dose: 125 mls/hr Insulin Human Lispro (Humalog) 0 units SC Q6 [facility] PRN Reason: Protocol Last Admin: 12/10/16 14:53 Dose: Not Given Metronidazole (Flagyl) 500 mg PO Q8 [facility] Last Admin: 12/10/16 13:14 Dose: 500 mg Nystatin (Nystop Topical Powder) 1 applic TOP TID [facility] Last Admin: 12/10/16 14:54 Dose: 1 pow Pantoprazole Sodium (Protonix Inj) 40 mg IVP DAILY [facility] Last Admin: 12/10/16 13:14 Dose: 40 mg Physical Exam - Constitutional Appears: No Acute Distress, Chronically Ill - Head Exam Head Exam: ATRAUMATIC, NORMOCEPHALIC - Eye Exam Eye Exam: EOMI. absent: Scleral icterus - ENT Exam Additional comments: ET tube in place - Respiratory Exam Respiratory Exam: NORMAL BREATHING PATTERN Additional comments: mechanical ventilation, PRVC - Cardiovascular Exam Cardiovascular Exam: +S1, +S2. absent: Tachycardia, JVD - GI/Abdominal Exam GI & Abdominal Exam: Hernia (umbilical, small ), Soft. absent: Distended, Guarding, Rebound, Rigid, Tenderness - Rectal Exam Additional comments: rectal tube in place draining liquid brown stool - Neurological Exam Neurological exam: Alert Additional comments: intubated. Awakens to verbal stimuli - Skin Skin Exam: Dry, Warm Results - Vital Signs Recent Vital Signs: Last Vital Signs Temp 99.4 F 12/10/16 12:00 Pulse 98 H 12/10/16 12:00 Resp 17 12/10/16 12:00 BP 127/56 L 12/10/16 12:00 Pulse Ox 100 12/10/16 12:00 - Labs Result Diagrams: 12/10/16 04:20 12/10/16 04:20 Labs: Laboratory Results - last 24 hr 12/09/16 12/09/16 12/09/16 05:00 16:20 21:22 WBC RBC Hgb Hct MCV MCH MCHC RDW Plt Count MPV Neut % (Auto) Lymph % (Auto) [place] % (Auto) Eos % (Auto) Baso % (Auto) Neut # Lymph # [place] # Eos # Baso # PT INR APTT pCO2 pO2 HCO3 ABG pH ABG Total CO2 ABG O2 Saturation ABG Base Excess Torres Test ABG Potassium A-a O2 Difference Glucose Lactate Vent Mode Mechanical Rate FiO2 Tidal Volume PEEP Sodium Potassium Chloride Carbon Dioxide Anion Gap BUN Creatinine Est GFR ( Amer) Est GFR (Non-Af Amer) POC Glucose (mg/dL) 111 H 147 H Random Glucose Calcium Phosphorus Magnesium Total Bilirubin GGT 1262 H AST ALT Alkaline Phosphatase Total Protein Albumin Globulin Albumin/Globulin Ratio Arterial Blood Potassium 12/10/16 12/10/16 12/10/16 04:18 04:20 04:20 WBC 6.6 RBC 2.82 L Hgb 8.4 L Hct 25.5 L MCV 90.3 MCH 29.9 MCHC 33.1 RDW 16.7 H Plt Count 138 MPV 9.8 Neut % (Auto) 51.0 Lymph % (Auto) 39.3 [place] % (Auto) 7.0 Eos % (Auto) 1.6 Baso % (Auto) 1.1 Neut # 3.4 Lymph # 2.6 [place] # 0.5 Eos # 0.1 Baso # 0.1 PT INR APTT pCO2 pO2 HCO3 ABG pH ABG Total CO2 ABG O2 Saturation ABG Base Excess Torres Test ABG Potassium A-a O2 Difference Glucose Lactate Vent Mode Mechanical Rate FiO2 Tidal Volume PEEP Sodium 141 Potassium 4.1 Chloride 110 H Carbon Dioxide 25 Anion Gap 10 BUN 31 H Creatinine 1.0 Est GFR ( Amer) > 60 Est GFR (Non-Af Amer) > 60 POC Glucose (mg/dL) 103 Random Glucose 100 Calcium 7.7 L Phosphorus 3.3 Magnesium 1.9 Total Bilirubin 0.3 GGT 1703 H AST 24 ALT 21 Alkaline Phosphatase 877 H Total Protein 6.3 Albumin 2.2 L Globulin 4.2 H Albumin/Globulin Ratio 0.5 L Arterial Blood Potassium 12/10/16 12/10/16 12/10/16 04:20 05:25 11:10 WBC RBC Hgb Hct MCV MCH MCHC RDW Plt Count MPV Neut % (Auto) Lymph % (Auto) [place] % (Auto) Eos % (Auto) Baso % (Auto) Neut # Lymph # [place] # Eos # Baso # PT 13.2 H INR 1.3 H APTT 35.7 pCO2 34 L pO2 159 H HCO3 28.0 ABG pH 7.51 H ABG Total CO2 28.1 H ABG O2 Saturation 99.5 H ABG Base Excess 3.9 H Torres Test Yes ABG Potassium 4.0 A-a O2 Difference 84.0 Glucose 103 Lactate 0.7 Vent Mode A/c Mechanical Rate 12 FiO2 40.0 Tidal Volume 450 PEEP 5 Sodium 140.0 Potassium Chloride 113.0 H Carbon Dioxide Anion Gap BUN Creatinine Est GFR ( Amer) Est GFR (Non-Af Amer) POC Glucose (mg/dL) 128 H Random Glucose Calcium Phosphorus Magnesium Total Bilirubin GGT AST ALT Alkaline Phosphatase Total Protein Albumin Globulin Albumin/Globulin Ratio Arterial Blood Potassium 4.0 Assessment & Plan - Assessment and Plan (Free Text) Assessment: 71 y/o male w/ respiratory failure, fungemia and bacteremia found to have continuously increasing Alk phos and GGT Plan: -recommend RUQ u/s -ok to cont tube feeds -may consider drug induced etiology, possibly antifungals -pending u/s results determine further surgical intervention -f/u GI recs -further management per ICU and primary team -discussed case with Dr. Velma Oliveira PGY3 <Isreal Carreon - Last Filed: 12/11/16 14:53> History of Present Illness - History of Present Illness History of Present Illness: Patient was seen and examined at the bedside. Agree with resident's note above Meds - Medications Medications: Current Medications Acetylcysteine (Acetylcysteine 20%) 2 ml INH RBID [facility] Last Admin: 12/11/16 08:23 Dose: 2 ml Albuterol/Ipratropium (Duoneb 3 Mg/0.5 Mg (3 Ml) Ud) 3 ml INH RQID [facility] Last Admin: 12/11/16 11:16 Dose: 3 ml Collagenase (Santyl) 1 applic TOP DAILY [facility] Last Admin: 12/11/16 08:23 Dose: 1 applic Heparin Sodium (Porcine) (Heparin) 5,000 units SC Q12 [facility] PRN Reason: Protocol Last Admin: 12/11/16 08:20 Dose: 5,000 units Meropenem 1 gm/ Sodium (Chloride) 100 mls @ 100 mls/hr IVPB Q12 [facility] Last Admin: 12/11/16 08:20 Dose: 100 mls/hr Voriconazole 300 mg/ Sodium (Chloride) 250 mls @ 125 mls/hr IVPB Q12 [facility] Last Admin: 12/11/16 09:38 Dose: 125 mls/hr Insulin Human Lispro (Humalog) 0 units SC Q6 [facility] PRN Reason: Protocol Last Admin: 12/11/16 12:05 Dose: Not Given Metronidazole (Flagyl) 500 mg PO Q8 [facility] Last Admin: 12/11/16 08:19 Dose: Not Given Nystatin (Nystop Topical Powder) 1 applic TOP TID [facility] Last Admin: 12/11/16 12:06 Dose: 1 pow Pantoprazole Sodium (Protonix Inj) 40 mg IVP DAILY [facility] Last Admin: 12/11/16 08:29 Dose: 40 mg Results - Vital Signs Recent Vital Signs: Last Vital Signs Temp 98.7 F 12/11/16 12:00 Pulse 92 H 12/11/16 14:00 Resp 11 L 12/11/16 14:00 BP 117/68 12/11/16 14:00 Pulse Ox 100 12/11/16 14:00 - Labs Result Diagrams: 12/11/16 06:00 12/11/16 06:00 Labs: Laboratory Results - last 24 hr 12/10/16 12/10/16 12/11/16 16:02 22:10 05:19 WBC RBC Hgb Hct MCV MCH MCHC RDW Plt Count pCO2 pO2 HCO3 ABG pH ABG Total CO2 ABG O2 Saturation ABG O2 Content ABG Base Excess ABG Hemoglobin ABG Carboxyhemoglobin POC ABG HHb (Measured) ABG Methemoglobin ABG O2 Capacity Torres Test A-a O2 Difference Hgb O2 Saturation Vent Mode Mechanical Rate FiO2 Tidal Volume PEEP Sodium Potassium Chloride Carbon Dioxide Anion Gap BUN Creatinine Est GFR ( Amer) Est GFR (Non-Af Amer) POC Glucose (mg/dL) 114 H 127 H 106 Random Glucose Calcium Total Bilirubin AST ALT Alkaline Phosphatase Total Protein Albumin Globulin Albumin/Globulin Ratio 12/11/16 12/11/16 12/11/16 05:23 06:00 06:00 WBC 6.6 RBC 2.54 L Hgb 7.5 L Hct 23.3 L MCV 91.8 MCH 29.7 MCHC 32.3 L RDW 16.9 H Plt Count 155 pCO2 33 L pO2 150 H HCO3 29.2 H ABG pH 7.54 H ABG Total CO2 29.2 H ABG O2 Saturation 99.8 H ABG O2 Content 11.2 L ABG Base Excess 5.4 H ABG Hemoglobin 7.9 L ABG Carboxyhemoglobin 0.8 POC ABG HHb (Measured) 0.2 ABG Methemoglobin 1.5 ABG O2 Capacity 11.2 L Torres Test Yes A-a O2 Difference 94.0 Hgb O2 Saturation 97.5 Vent Mode A/c Mechanical Rate 12 FiO2 40.0 Tidal Volume 450 PEEP 5 Sodium 141 Potassium 4.0 Chloride 110 H Carbon Dioxide 25 Anion Gap 10 BUN 30 H Creatinine 1.0 Est GFR ( Amer) > 60 Est GFR (Non-Af Amer) > 60 POC Glucose (mg/dL) Random Glucose 90 Calcium 7.6 L Total Bilirubin 0.2 AST 20 ALT 26 Alkaline Phosphatase 760 H Total Protein 6.0 L Albumin 2.0 L Globulin 4.0 H Albumin/Globulin Ratio 0.5 L 12/11/16 10:58 WBC RBC Hgb Hct MCV MCH MCHC RDW Plt Count pCO2 pO2 HCO3 ABG pH ABG Total CO2 ABG O2 Saturation ABG O2 Content ABG Base Excess ABG Hemoglobin ABG Carboxyhemoglobin POC ABG HHb (Measured) ABG Methemoglobin ABG O2 Capacity Torres Test A-a O2 Difference Hgb O2 Saturation Vent Mode Mechanical Rate FiO2 Tidal Volume PEEP Sodium Potassium Chloride Carbon Dioxide Anion Gap BUN Creatinine Est GFR ( Amer) Est GFR (Non-Af Amer) POC Glucose (mg/dL) 90 Random Glucose Calcium Total Bilirubin AST ALT Alkaline Phosphatase Total Protein Albumin Globulin Albumin/Globulin Ratio
--- NOTE | 2016-12-10 18:00 | CP.PCM.PN ---
Subjective - Date & Time of Evaluation Date of Evaluation: 12/10/16 Time of Evaluation: 13:30 - Subjective Subjective: F/U Respiratory failure. Awake , follows with head movements verbal stimuli , not following commands , intubated Objective - Vital Signs/Intake and Output Vital Signs (last 24 hours): Temp Pulse Resp BP Pulse Ox 99.3 F 94 H 17 117/60 100 12/10/16 16:00 12/10/16 16:00 12/10/16 16:00 12/10/16 16:00 12/10/16 16:00 Intake and Output: 12/10/16 12/10/16 06:59 18:59 Intake Total 1440 Output Total 450 Balance 990 - Medications Medications: Current Medications Acetylcysteine (Acetylcysteine 20%) 2 ml INH RBID [facility] Last Admin: 12/10/16 07:47 Dose: Not Given Albuterol/Ipratropium (Duoneb 3 Mg/0.5 Mg (3 Ml) Ud) 3 ml INH RQID [facility] Last Admin: 12/10/16 15:43 Dose: 3 ml Collagenase (Santyl) 1 applic TOP DAILY [facility] Last Admin: 12/10/16 14:49 Dose: 1 applic Heparin Sodium (Porcine) (Heparin) 5,000 units SC Q12 [facility] PRN Reason: Protocol Last Admin: 12/10/16 08:45 Dose: 5,000 units Meropenem 1 gm/ Sodium (Chloride) 100 mls @ 100 mls/hr IVPB Q12 [facility] Last Admin: 12/10/16 08:45 Dose: 100 mls/hr Voriconazole 300 mg/ Sodium (Chloride) 250 mls @ 125 mls/hr IVPB Q12 [facility] Last Admin: 12/10/16 13:14 Dose: 125 mls/hr Insulin Human Lispro (Humalog) 0 units SC Q6 [facility] PRN Reason: Protocol Last Admin: 12/10/16 16:41 Dose: Not Given Metronidazole (Flagyl) 500 mg PO Q8 [facility] Last Admin: 12/10/16 17:50 Dose: 500 mg Nystatin (Nystop Topical Powder) 1 applic TOP TID [facility] Last Admin: 12/10/16 14:54 Dose: 1 pow Pantoprazole Sodium (Protonix Inj) 40 mg IVP DAILY [facility] Last Admin: 12/10/16 13:14 Dose: 40 mg - Labs Labs: 12/10/16 04:20 12/10/16 04:20 PT 13.2 Seconds (9.8-13.1) H 12/10/16 04:20 INR 1.3 (0.9-1.2) H 12/10/16 04:20 APTT 35.7 Seconds (25.6-37.1) 12/10/16 04:20 - Constitutional Appears: Chronically Ill - Head Exam Head Exam: NORMAL INSPECTION - Eye Exam Eye Exam: PERRL - ENT Exam Additional comments: Intubated - Neck Exam Neck Exam: Normal Inspection - Respiratory Exam Respiratory Exam: Decreased Breath Sounds (b/l), Rhonchi (few at bases) - Cardiovascular Exam Cardiovascular Exam: REGULAR RHYTHM - GI/Abdominal Exam GI & Abdominal Exam: Soft, Normal Bowel Sounds - Extremities Exam Additional comments: Edema upper extremities. - Back Exam Back Exam: NORMAL INSPECTION - Neurological Exam Neurological Exam: Awake Additional comments: Response to tactile stimuli - Skin Skin Exam: Warm Assessment and Plan (1) Acute hypercapnic respiratory failure Status: Acute (2) Klebsiella pneumonia Status: Acute (3) Dehydration Status: Acute (4) Septic shock Status: Acute (5) GEORGINA (acute kidney injury) Status: Acute (6) Type 2 diabetes mellitus with hyperglycemia Status: Chronic (7) HTN (hypertension) Status: Chronic (8) C. difficile colitis Status: Acute (9) Alkaline phosphatase elevation Status: Acute (10) Fungemia Status: Acute - Assessment and Plan (Free Text) Plan: Continue Merren , Voriconazole , Flagyl , DuoNeb , Mucomyst, f/u Abdominal US , GI consult, continue attempt of weaning ICU Time: 36 min.
--- NOTE | 2016-12-11 02:10 | CP.PCM.PN ---
<Kalyn Hernandez - Last Filed: 12/11/16 10:09> Subjective - Date & Time of Evaluation Date of Evaluation: 12/11/16 Time of Evaluation: 05:20 - Subjective Subjective: Patient seen and examined in the ICU this AM. CHIDIEO. Patient is minimally interactive and intubated but indicates he does not have any pain Objective - Vital Signs/Intake and Output Vital Signs (last 24 hours): Temp Pulse Resp BP Pulse Ox 99.4 F 96 H 19 112/56 L 100 12/11/16 00:00 12/11/16 00:00 12/11/16 00:00 12/11/16 00:00 12/11/16 00:00 Intake and Output: 12/10/16 12/11/16 18:59 06:59 Intake Total 1020 Output Total 608 Balance 412 - Medications Medications: Current Medications Acetylcysteine (Acetylcysteine 20%) 2 ml INH RBID [facility] Last Admin: 12/10/16 20:01 Dose: 2 ml Albuterol/Ipratropium (Duoneb 3 Mg/0.5 Mg (3 Ml) Ud) 3 ml INH RQID [facility] Last Admin: 12/10/16 20:02 Dose: 3 ml Collagenase (Santyl) 1 applic TOP DAILY [facility] Last Admin: 12/10/16 14:49 Dose: 1 applic Heparin Sodium (Porcine) (Heparin) 5,000 units SC Q12 [facility] PRN Reason: Protocol Last Admin: 12/10/16 21:30 Dose: 5,000 units Meropenem 1 gm/ Sodium (Chloride) 100 mls @ 100 mls/hr IVPB Q12 [facility] Last Admin: 12/10/16 22:11 Dose: 100 mls/hr Voriconazole 300 mg/ Sodium (Chloride) 250 mls @ 125 mls/hr IVPB Q12 [facility] Last Admin: 12/10/16 22:05 Dose: 125 mls/hr Insulin Human Lispro (Humalog) 0 units SC Q6 [facility] PRN Reason: Protocol Last Admin: 12/10/16 22:10 Dose: Not Given Metronidazole (Flagyl) 500 mg PO Q8 [facility] Last Admin: 12/11/16 01:42 Dose: Not Given Nystatin (Nystop Topical Powder) 1 applic TOP TID [facility] Last Admin: 12/10/16 14:54 Dose: 1 pow Pantoprazole Sodium (Protonix Inj) 40 mg IVP DAILY [facility] Last Admin: 12/10/16 13:14 Dose: 40 mg - Labs Labs: 12/10/16 04:20 12/10/16 04:20 PT 13.2 Seconds (9.8-13.1) H 12/10/16 04:20 INR 1.3 (0.9-1.2) H 12/10/16 04:20 APTT 35.7 Seconds (25.6-37.1) 12/10/16 04:20 - Constitutional Appears: Non-toxic, Chronically Ill - Head Exam Head Exam: ATRAUMATIC, NORMOCEPHALIC - Eye Exam Eye Exam: Normal appearance. absent: Conjunctival injection, Scleral icterus - ENT Exam ENT Exam: Mucous Membranes Moist, Normal Oropharynx - Respiratory Exam Additional comments: mechanically intubated on PRVC - Cardiovascular Exam Cardiovascular Exam: absent: Bradycardia, Tachycardia - GI/Abdominal Exam GI & Abdominal Exam: Soft, Tenderness (moderate tenderness in the RLQ). absent : Distended - Extremities Exam Extremities Exam: absent: Calf Tenderness, Pedal Edema, Tenderness - Neurological Exam Neurological Exam: Altered, Awake - Psychiatric Exam Psychiatric exam: Flat Affect. absent: Agitated, Anxious - Skin Skin Exam: Dry, Normal Color, Warm Assessment and Plan - Assessment and Plan (Free Text) Assessment: 71 y/o male w/ respiratory failure, fungemia and bacteremia found to have continuously increasing Alk phos and GGT alk phos: decreased from yesterday abdominal US: pending Plan: -recommend RUQ u/s -NPO: cont tube feeds after ultrasound -may consider drug induced etiology, possibly antifungals -further surgical intervention pending u/s results -f/u GI recs -further management per ICU and primary team Discussed with Dr. Velma Hernandez, PGY2 <Isreal Carreon - Last Filed: 12/11/16 14:57> Subjective - Date & Time of Evaluation Time of Evaluation: 14:00 - Subjective Subjective: Patient was seen and examined at the bedside. Agree with resident's note above. Abdominal ultrasound shows no stones, no CBD dilatation, no evidence of cholecystitis Objective - Vital Signs/Intake and Output Vital Signs (last 24 hours): Temp Pulse Resp BP Pulse Ox 98.7 F 92 H 11 L 117/68 100 12/11/16 12:00 12/11/16 14:00 12/11/16 14:00 12/11/16 14:00 12/11/16 14:00 Intake and Output: 12/11/16 12/11/16 06:59 18:59 Intake Total 1060 580 Output Total 1058 570 Balance 2 10 - Medications Medications: Current Medications Acetylcysteine (Acetylcysteine 20%) 2 ml INH RBID [facility] Last Admin: 12/11/16 08:23 Dose: 2 ml Albuterol/Ipratropium (Duoneb 3 Mg/0.5 Mg (3 Ml) Ud) 3 ml INH RQID [facility] Last Admin: 12/11/16 11:16 Dose: 3 ml Collagenase (Santyl) 1 applic TOP DAILY [facility] Last Admin: 12/11/16 08:23 Dose: 1 applic Heparin Sodium (Porcine) (Heparin) 5,000 units SC Q12 [facility] PRN Reason: Protocol Last Admin: 12/11/16 08:20 Dose: 5,000 units Meropenem 1 gm/ Sodium (Chloride) 100 mls @ 100 mls/hr IVPB Q12 [facility] Last Admin: 12/11/16 08:20 Dose: 100 mls/hr Voriconazole 300 mg/ Sodium (Chloride) 250 mls @ 125 mls/hr IVPB Q12 [facility] Last Admin: 12/11/16 09:38 Dose: 125 mls/hr Insulin Human Lispro (Humalog) 0 units SC Q6 [facility] PRN Reason: Protocol Last Admin: 12/11/16 12:05 Dose: Not Given Metronidazole (Flagyl) 500 mg PO Q8 [facility] Last Admin: 12/11/16 08:19 Dose: Not Given Nystatin (Nystop Topical Powder) 1 applic TOP TID [facility] Last Admin: 12/11/16 12:06 Dose: 1 pow Pantoprazole Sodium (Protonix Inj) 40 mg IVP DAILY [facility] Last Admin: 12/11/16 08:29 Dose: 40 mg - Labs Labs: 12/11/16 06:00 12/11/16 06:00 PT 13.2 Seconds (9.8-13.1) H 12/10/16 04:20 INR 1.3 (0.9-1.2) H 12/10/16 04:20 APTT 35.7 Seconds (25.6-37.1) 12/10/16 04:20 - GI/Abdominal Exam GI & Abdominal Exam: Tenderness, Normal Bowel Sounds Additional comments: NT, ND, no rebound, no guarding, negative Katz's sign Assessment and Plan - Assessment and Plan (Free Text) Plan: - No general surgery intervention at present time - GI follow up - Continue tube feeds - Continue ventilator support - Continue care as per medical and ICU team - General surgery will sign off - Please re-consult as needed
[2016-12-11] MEDS: Insulin Lispro (humaLOG) 100 Units/ml Inj SC SCH ×4 (05:15→22:00)
[2016-12-11 05:26] LABS: ABG ALLEN TEST YES; ABG MECHANICAL RATE 12; ARTERIAL BLOOD GAS HCO3 29.2 mmol/L (21-28); ARTERIAL BLOOD GAS MODE A/C; ARTERIAL BLOOD GAS O2 CAPACITY 11.2 mL/dL (16-24); ARTERIAL BLOOD GAS O2 CONTENT 11.2 ML/dL (15-23); ARTERIAL BLOOD GAS PH 7.54 (7.35-7.45); ARTERIAL BLOOD GAS PO2 150 mm/Hg (80-100); ARTERIAL BLOOD HGB O2 SAT 97.5 % (95.0-98.0); ATERIAL BLOOD GAS PEEP 5; CARBOXYHEMOGLOBIN 0.8 % (0.5-1.5); HHB 0.2 % (0.0-5.0); METHEMOGLOBIN 1.5 % (0.0-3.0)
[2016-12-11 07:07] LABS: HEMATOCRIT 23.3 % (35.0-51.0); MEAN CELL VOLUME 91.8 fl (80.0-94.0); MEAN CORPUSCULAR HEMOGLOBIN 29.7 pg (27.0-31.0); MEAN CORPUSCULAR HGB CONC 32.3 g/dL (33.0-37.0); RED CELL DISTRIBUTION WIDTH 16.9 % (11.5-14.5); WHITE BLOOD COUNT 6.6 K/uL (4.8-10.8)
[2016-12-11 07:16] LABS: ALB/GLOB RATIO 0.5 (1.0-2.1); ALKALINE PHOSPHATASE 760 U/L (38-126); ALT/SGPT 26 U/L (21-72); AST/SGOT 20 U/L (17-59); BILIRUBIN,TOTAL 0.2 mg/dl (0.2-1.3); BLOOD UREA NITROGEN 30 mg/dl (9-20); CALCIUM 7.6 mg/dL (8.4-10.2); CARBON DIOXIDE 25 mmol/L (22-30); CHLORIDE 110 mmol/L (98-107); GFR AFRICAN-AMERICAN > 60; GLUCOSE,RANDOM 90 mg/dL (75-110); SODIUM 141 mmol/l (132-148)
[2016-12-11] MEDS: Meropenem 1 GM in Sodium Chloride 0.9% 100 ML IVPB SCH ×2 (08:20→21:00)
[2016-12-11] MEDS: Acetylcysteine 20% Inhal Soln (4ml) INH SCH ×2 (08:23→19:17)
[2016-12-11] MEDS: Santyl Collagenase OINTMENT TOP SCH (08:23)
[2016-12-11] MEDS: Albuterol-Ipratrop 3 mg / 0.5 (3 ml) UD INH SCH ×4 (08:24→19:17)
--- NOTE | 2016-12-11 08:37 | CP.CCUPN ---
CCU Subjective - Physician Review Events Since Last Encounter (Free Text): 12/11/16 08:34 On vent, awake and looks comfortable, on AC, BP has been stable, still has PICC line and peripheral line could not be inserted, pt has arm edema, will try again today and if successful, will DC PICC line, as recommended by ID, due to fungemia . CCU Objective - Vital Signs / Intake & Output Vital Signs (Last 4 hours): Vital Signs Temp Pulse Resp BP Pulse Ox 12/11/16 08:00 98.5 F 95 H 12 108/58 L 100 12/11/16 06:00 89 16 127/67 100 Intake and Output (Last 8hrs): Intake & Output 12/10/16 12/11/16 12/11/16 22:59 06:59 14:59 Intake Total 460 600 Output Total 358 700 Balance 102 -100 Intake: IV 120 290 Tube Feeding 320 160 Free Water Flush 20 150 Output: Gastric Amount 8 Stomach 8 Urine 300 700 Urethral (Triplett) 300 700 Stool 50 - Physical Exam Narrative Physical Exam (Free Text): 12/11/16 08:36 P/E Neck: No JVD Lungs: no ronchi, crackles Abdomen: soft, non-tender Ext: arm edema, +1 pedal edema Heart: No gallop Head: Positive for: Normocephalic Pupils: Positive for: PERRL Extroacular Muscles: Positive for: EOMI. Negative for: Gaze Palsy Conjunctiva: Negative for: Injected, Icteric Mouth: Positive for: Moist Mucous Membranes Neck: Negative for: Meningeal Signs, JVD, Lymphadenopathy Respiratory/Chest: Positive for: Decreased Breath Sounds. Negative for: Accessory Muscle Use, Wheezes, Rhonchi Cardiovascular: Positive for: Regular Rate and Rhythm. Negative for: Murmurs, Rub Abdomen: Positive for: Normal Bowel Sounds. Negative for: Tenderness, Distention Lower Extremity: Positive for: Edema, Other (osteomyelitis of right foot). Negative for: CALF TENDERNESS, Cyanosis Neurological: Positive for: Motor Func Grossly Intact, Norm Deep Tendon Reflexes Skin: Positive for: Warm. Negative for: Rashes Psychiatric: Positive for: Alert. Negative for: Lethargic - Medications Active Medications: Active Medications Generic Name Dose Route Start Last Admin Trade Name Freq PRN Reason Stop Dose Admin Acetylcysteine 2 ml 11/27/16 20:00 12/11/16 08:23 Acetylcysteine 20% INH 2 ml RBID LARRY Administration Albuterol/Ipratropium 3 ml 12/09/16 12:00 12/11/16 08:24 Duoneb 3 Mg/0.5 Mg (3 Ml) Ud INH 3 ml RQID LARRY Administration Collagenase 1 applic 12/08/16 16:15 12/11/16 08:23 Santyl TOP 1 applic DAILY LARRY Administration Heparin Sodium (Porcine) 5,000 units 12/06/16 21:00 12/11/16 08:20 Heparin SC 5,000 units Q12 LARRY Administration Protocol Meropenem 1 gm/ Sodium 100 mls @ 100 mls/hr 12/08/16 10:00 12/11/16 08:20 Chloride IVPB 100 mls/hr Q12 LARRY Administration Voriconazole 300 mg/ Sodium 250 mls @ 125 mls/hr 12/10/16 09:00 12/10/16 22: 05 Chloride IVPB 125 mls/hr Q12 LARRY Administration Insulin Human Lispro 0 units 12/06/16 22:00 12/11/16 05:15 Humalog SC Not Given Q6 [facility] Protocol Metronidazole 500 mg 11/27/16 11:00 12/11/16 08:19 Flagyl PO Not Given Q8 [facility] Nystatin 1 applic 12/08/16 17:00 12/11/16 08:23 Nystop Topical Powder TOP 1 pow TID LARRY Administration Pantoprazole Sodium 40 mg 12/09/16 09:00 12/11/16 08:29 Protonix Inj IVP 40 mg DAILY LARRY Administration - Patient Studies Lab Studies: Microbiology Studies 12/06/16 17:30 Blood Culture - Preliminary Blood-Venous NO GROWTH AFTER 4 DAYS 12/06/16 17:50 Blood Culture - Preliminary Blood-Venous NO GROWTH AFTER 4 DAYS Lab Studies 12/11/16 12/11/16 12/11/16 Range/Units 06:00 06:00 05:23 WBC 6.6 (4.8-10.8) K/uL RBC 2.54 L (4.40-5.90) Mil/uL Hgb 7.5 L (12.0-18.0) g/dL Hct 23.3 L (35.0-51.0) % MCV 91.8 (80.0-94.0) fl MCH 29.7 (27.0-31.0) pg MCHC 32.3 L (33.0-37.0) g/dL RDW 16.9 H (11.5-14.5) % Plt Count 155 (130-400) K/uL pCO2 33 L (35-45) mm/Hg pO2 150 H (80-100) mm/Hg HCO3 29.2 H (21-28) mmol/L ABG pH 7.54 H (7.35-7.45) ABG Total CO2 29.2 H (22-28) mmol/L ABG O2 Saturation 99.8 H (95-98) % ABG O2 Content 11.2 L (15-23) ML/dL ABG Base Excess 5.4 H (-2.0-3.0) mmol/L ABG Hemoglobin 7.9 L (11.7-17.4) g/dL ABG Carboxyhemoglobin 0.8 (0.5-1.5) % POC ABG HHb (Measured) 0.2 (0.0-5.0) % ABG Methemoglobin 1.5 (0.0-3.0) % ABG O2 Capacity 11.2 L (16-24) mL/dL Torres Test Yes A-a O2 Difference 94.0 mm/Hg Hgb O2 Saturation 97.5 (95.0-98.0) % Vent Mode A/c Mechanical Rate 12 FiO2 40.0 % Tidal Volume 450 PEEP 5 Sodium 141 (132-148) mmol/l Potassium 4.0 (3.6-5.0) MMOL/L Chloride 110 H (98-107) mmol/L Carbon Dioxide 25 (22-30) mmol/L Anion Gap 10 (10-20) BUN 30 H (9-20) mg/dl Creatinine 1.0 (0.8-1.5) mg/dL Est GFR ( Amer) > 60 Est GFR (Non-Af Amer) > 60 POC Glucose (mg/dL) (65-110) mg/dL Random Glucose 90 (75-110) mg/dL Calcium 7.6 L (8.4-10.2) mg/dL Total Bilirubin 0.2 (0.2-1.3) mg/dl GGT (8-78) U/L AST 20 (17-59) U/L ALT 26 (21-72) U/L Alkaline Phosphatase 760 H (38-126) U/L Total Protein 6.0 L (6.3-8.2) G/DL Albumin 2.0 L (3.5-5.0) g/dL Globulin 4.0 H (2.2-3.9) gm/dL Albumin/Globulin Ratio 0.5 L (1.0-2.1) 12/11/16 12/10/16 12/10/16 Range/Units 05:19 22:10 16:02 WBC (4.8-10.8) K/uL RBC (4.40-5.90) Mil/uL Hgb (12.0-18.0) g/dL Hct (35.0-51.0) % MCV (80.0-94.0) fl MCH (27.0-31.0) pg MCHC (33.0-37.0) g/dL RDW (11.5-14.5) % Plt Count (130-400) K/uL pCO2 (35-45) mm/Hg pO2 (80-100) mm/Hg HCO3 (21-28) mmol/L ABG pH (7.35-7.45) ABG Total CO2 (22-28) mmol/L ABG O2 Saturation (95-98) % ABG O2 Content (15-23) ML/dL ABG Base Excess (-2.0-3.0) mmol/L ABG Hemoglobin (11.7-17.4) g/dL ABG Carboxyhemoglobin (0.5-1.5) % POC ABG HHb (Measured) (0.0-5.0) % ABG Methemoglobin (0.0-3.0) % ABG O2 Capacity (16-24) mL/dL Torres Test A-a O2 Difference mm/Hg Hgb O2 Saturation (95.0-98.0) % Vent Mode Mechanical Rate FiO2 % Tidal Volume PEEP Sodium (132-148) mmol/l Potassium (3.6-5.0) MMOL/L Chloride (98-107) mmol/L Carbon Dioxide (22-30) mmol/L Anion Gap (10-20) BUN (9-20) mg/dl Creatinine (0.8-1.5) mg/dL Est GFR ( Amer) Est GFR (Non-Af Amer) POC Glucose (mg/dL) 106 127 H 114 H (65-110) mg/dL Random Glucose (75-110) mg/dL Calcium (8.4-10.2) mg/dL Total Bilirubin (0.2-1.3) mg/dl GGT (8-78) U/L AST (17-59) U/L ALT (21-72) U/L Alkaline Phosphatase (38-126) U/L Total Protein (6.3-8.2) G/DL Albumin (3.5-5.0) g/dL Globulin (2.2-3.9) gm/dL Albumin/Globulin Ratio (1.0-2.1) 12/10/16 12/10/16 Range/Units 11:10 04:20 WBC (4.8-10.8) K/uL RBC (4.40-5.90) Mil/uL Hgb (12.0-18.0) g/dL Hct (35.0-51.0) % MCV (80.0-94.0) fl MCH (27.0-31.0) pg MCHC (33.0-37.0) g/dL RDW (11.5-14.5) % Plt Count (130-400) K/uL pCO2 (35-45) mm/Hg pO2 (80-100) mm/Hg HCO3 (21-28) mmol/L ABG pH (7.35-7.45) ABG Total CO2 (22-28) mmol/L ABG O2 Saturation (95-98) % ABG O2 Content (15-23) ML/dL ABG Base Excess (-2.0-3.0) mmol/L ABG Hemoglobin (11.7-17.4) g/dL ABG Carboxyhemoglobin (0.5-1.5) % POC ABG HHb (Measured) (0.0-5.0) % ABG Methemoglobin (0.0-3.0) % ABG O2 Capacity (16-24) mL/dL Torres Test A-a O2 Difference mm/Hg Hgb O2 Saturation (95.0-98.0) % Vent Mode Mechanical Rate FiO2 % Tidal Volume PEEP Sodium (132-148) mmol/l Potassium (3.6-5.0) MMOL/L Chloride (98-107) mmol/L Carbon Dioxide (22-30) mmol/L Anion Gap (10-20) BUN (9-20) mg/dl Creatinine (0.8-1.5) mg/dL Est GFR ( Amer) Est GFR (Non-Af Amer) POC Glucose (mg/dL) 128 H (65-110) mg/dL Random Glucose (75-110) mg/dL Calcium (8.4-10.2) mg/dL Total Bilirubin (0.2-1.3) mg/dl GGT 1703 H (8-78) U/L AST (17-59) U/L ALT (21-72) U/L Alkaline Phosphatase (38-126) U/L Total Protein (6.3-8.2) G/DL Albumin (3.5-5.0) g/dL Globulin (2.2-3.9) gm/dL Albumin/Globulin Ratio (1.0-2.1) Laboratory Results - last 24 hr 12/10/16 12/10/16 12/10/16 04:20 11:10 16:02 WBC RBC Hgb Hct MCV MCH MCHC RDW Plt Count pCO2 pO2 HCO3 ABG pH ABG Total CO2 ABG O2 Saturation ABG O2 Content ABG Base Excess ABG Hemoglobin ABG Carboxyhemoglobin POC ABG HHb (Measured) ABG Methemoglobin ABG O2 Capacity Torres Test A-a O2 Difference Hgb O2 Saturation Vent Mode Mechanical Rate FiO2 Tidal Volume PEEP Sodium Potassium Chloride Carbon Dioxide Anion Gap BUN Creatinine Est GFR ( Amer) Est GFR (Non-Af Amer) POC Glucose (mg/dL) 128 H 114 H Random Glucose Calcium Total Bilirubin GGT 1703 H AST ALT Alkaline Phosphatase Total Protein Albumin Globulin Albumin/Globulin Ratio 12/10/16 12/11/16 12/11/16 22:10 05:19 05:23 WBC RBC Hgb Hct MCV MCH MCHC RDW Plt Count pCO2 33 L pO2 150 H HCO3 29.2 H ABG pH 7.54 H ABG Total CO2 29.2 H ABG O2 Saturation 99.8 H ABG O2 Content 11.2 L ABG Base Excess 5.4 H ABG Hemoglobin 7.9 L ABG Carboxyhemoglobin 0.8 POC ABG HHb (Measured) 0.2 ABG Methemoglobin 1.5 ABG O2 Capacity 11.2 L Torres Test Yes A-a O2 Difference 94.0 Hgb O2 Saturation 97.5 Vent Mode A/c Mechanical Rate 12 FiO2 40.0 Tidal Volume 450 PEEP 5 Sodium Potassium Chloride Carbon Dioxide Anion Gap BUN Creatinine Est GFR ( Amer) Est GFR (Non-Af Amer) POC Glucose (mg/dL) 127 H 106 Random Glucose Calcium Total Bilirubin GGT AST ALT Alkaline Phosphatase Total Protein Albumin Globulin Albumin/Globulin Ratio 12/11/16 12/11/16 06:00 06:00 WBC 6.6 RBC 2.54 L Hgb 7.5 L Hct 23.3 L MCV 91.8 MCH 29.7 MCHC 32.3 L RDW 16.9 H Plt Count 155 pCO2 pO2 HCO3 ABG pH ABG Total CO2 ABG O2 Saturation ABG O2 Content ABG Base Excess ABG Hemoglobin ABG Carboxyhemoglobin POC ABG HHb (Measured) ABG Methemoglobin ABG O2 Capacity Trores Test A-a O2 Difference Hgb O2 Saturation Vent Mode Mechanical Rate FiO2 Tidal Volume PEEP Sodium 141 Potassium 4.0 Chloride 110 H Carbon Dioxide 25 Anion Gap 10 BUN 30 H Creatinine 1.0 Est GFR ( Amer) > 60 Est GFR (Non-Af Amer) > 60 POC Glucose (mg/dL) Random Glucose 90 Calcium 7.6 L Total Bilirubin 0.2 GGT AST 20 ALT 26 Alkaline Phosphatase 760 H Total Protein 6.0 L Albumin 2.0 L Globulin 4.0 H Albumin/Globulin Ratio 0.5 L Fingerstick Blood Sugar Results: 106 Critical Care Progress Note - Nutrition Nutrition: Nutrition Category Date Time Status NPO Diet [DIET] Diets 12/10/16 Dinner Active Assessment/Plan - Assessment and Plan (Free Text) Assessment: Resp failure: Has been on AC, could not tolerate PSV yesterday PNA Fungemia: On antifungal meds Edema: mainly due to low albumin, Plan: Continue current meds and antifungal meds Will try to establish peripheral line and if successful, will remove picc line Abdominal US, to r/o obstruction in view of high Alk phosph, NPO at the mement, will resume enteral feeding post US GI on board Will change to CPAP again today with 15 PS Continue other meds, reviewed. Time spent 35 minutes.
--- NOTE | 2016-12-11 10:24 | RAD ---
HISTORY: reevaluate ETT/ lung . Portable study 07:30 upright technique. COMPARISON: December 10, 2016. Multiple serial examinations preceding the most recent study: FINDINGS: LUNGS: Stable lower lobe infiltrates left larger than right. PLEURA: No significant pleural effusion identified, no pneumothorax apparent. CARDIOVASCULAR: No radiographic findings to suggest acute or significant cardiovascular disease. OSSEOUS STRUCTURES: No significant abnormalities. VISUALIZED UPPER ABDOMEN: Normal. OTHER FINDINGS: Stable, satisfactory position ventilatory, vascular and nasogastric apparatus IMPRESSION: No significant interval change compared to the prior examination(s).
--- NOTE | 2016-12-11 13:37 | CP.PCM.PN ---
Subjective - Date & Time of Evaluation Date of Evaluation: 12/11/16 Time of Evaluation: 01:30 - Subjective Subjective: Intubated on ventilator support Awake. Nods appropriatly Objective - Vital Signs/Intake and Output Vital Signs (last 24 hours): Temp Pulse Resp BP Pulse Ox 98.7 F 93 H 17 119/53 L 100 12/11/16 12:00 12/11/16 12:00 12/11/16 12:00 12/11/16 12:00 12/11/16 12:00 Intake and Output: 12/11/16 12/11/16 06:59 18:59 Intake Total 1060 350 Output Total 1058 445 Balance 2 -95 - Medications Medications: Current Medications Acetylcysteine (Acetylcysteine 20%) 2 ml INH RBID [facility] Last Admin: 12/11/16 08:23 Dose: 2 ml Albuterol/Ipratropium (Duoneb 3 Mg/0.5 Mg (3 Ml) Ud) 3 ml INH RQID [facility] Last Admin: 12/11/16 11:16 Dose: 3 ml Collagenase (Santyl) 1 applic TOP DAILY [facility] Last Admin: 12/11/16 08:23 Dose: 1 applic Heparin Sodium (Porcine) (Heparin) 5,000 units SC Q12 [facility] PRN Reason: Protocol Last Admin: 12/11/16 08:20 Dose: 5,000 units Meropenem 1 gm/ Sodium (Chloride) 100 mls @ 100 mls/hr IVPB Q12 [facility] Last Admin: 12/11/16 08:20 Dose: 100 mls/hr Voriconazole 300 mg/ Sodium (Chloride) 250 mls @ 125 mls/hr IVPB Q12 [facility] Last Admin: 12/11/16 09:38 Dose: 125 mls/hr Insulin Human Lispro (Humalog) 0 units SC Q6 [facility] PRN Reason: Protocol Last Admin: 12/11/16 12:05 Dose: Not Given Metronidazole (Flagyl) 500 mg PO Q8 [facility] Last Admin: 12/11/16 08:19 Dose: Not Given Nystatin (Nystop Topical Powder) 1 applic TOP TID [facility] Last Admin: 12/11/16 12:06 Dose: 1 pow Pantoprazole Sodium (Protonix Inj) 40 mg IVP DAILY [facility] Last Admin: 12/11/16 08:29 Dose: 40 mg - Labs Labs: 12/11/16 06:00 12/11/16 06:00 PT 13.2 Seconds (9.8-13.1) H 12/10/16 04:20 INR 1.3 (0.9-1.2) H 12/10/16 04:20 APTT 35.7 Seconds (25.6-37.1) 12/10/16 04:20 - Respiratory Exam Additional comments: Lungs clear - Cardiovascular Exam Cardiovascular Exam: REGULAR RHYTHM - Extremities Exam Additional comments: Extrem remain edematous Assessment and Plan - Assessment and Plan (Free Text) Assessment: GEORGINA resolved Respiratory failure Fungemia Edema,hypoalbuminrmia Plan: Continue to monitor renal function & electrolytes
--- NOTE | 2016-12-11 13:56 | CP.PCM.PN ---
Subjective - Date & Time of Evaluation Date of Evaluation: 12/11/16 Time of Evaluation: 13:00 - Subjective Subjective: F/U Respiratory Failure. Pt on trial of CPAP + PS in 9 AM. Objective - Vital Signs/Intake and Output Vital Signs (last 24 hours): Temp Pulse Resp BP Pulse Ox 98.7 F 93 H 17 119/53 L 100 12/11/16 12:00 12/11/16 12:00 12/11/16 12:00 12/11/16 12:00 12/11/16 12:00 Intake and Output: 12/11/16 12/11/16 06:59 18:59 Intake Total 1060 350 Output Total 1058 445 Balance 2 -95 - Medications Medications: Current Medications Acetylcysteine (Acetylcysteine 20%) 2 ml INH RBID [facility] Last Admin: 12/11/16 08:23 Dose: 2 ml Albuterol/Ipratropium (Duoneb 3 Mg/0.5 Mg (3 Ml) Ud) 3 ml INH RQID [facility] Last Admin: 12/11/16 11:16 Dose: 3 ml Collagenase (Santyl) 1 applic TOP DAILY [facility] Last Admin: 12/11/16 08:23 Dose: 1 applic Heparin Sodium (Porcine) (Heparin) 5,000 units SC Q12 [facility] PRN Reason: Protocol Last Admin: 12/11/16 08:20 Dose: 5,000 units Meropenem 1 gm/ Sodium (Chloride) 100 mls @ 100 mls/hr IVPB Q12 [facility] Last Admin: 12/11/16 08:20 Dose: 100 mls/hr Voriconazole 300 mg/ Sodium (Chloride) 250 mls @ 125 mls/hr IVPB Q12 [facility] Last Admin: 12/11/16 09:38 Dose: 125 mls/hr Insulin Human Lispro (Humalog) 0 units SC Q6 [facility] PRN Reason: Protocol Last Admin: 12/11/16 12:05 Dose: Not Given Metronidazole (Flagyl) 500 mg PO Q8 [facility] Last Admin: 12/11/16 08:19 Dose: Not Given Nystatin (Nystop Topical Powder) 1 applic TOP TID [facility] Last Admin: 12/11/16 12:06 Dose: 1 pow Pantoprazole Sodium (Protonix Inj) 40 mg IVP DAILY [facility] Last Admin: 12/11/16 08:29 Dose: 40 mg - Labs Labs: 12/11/16 06:00 12/11/16 06:00 PT 13.2 Seconds (9.8-13.1) H 12/10/16 04:20 INR 1.3 (0.9-1.2) H 12/10/16 04:20 APTT 35.7 Seconds (25.6-37.1) 12/10/16 04:20 - Constitutional Appears: Chronically Ill - Eye Exam Eye Exam: PERRL - ENT Exam Additional comments: intubated - Neck Exam Neck Exam: Normal Inspection - Respiratory Exam Respiratory Exam: Decreased Breath Sounds (b/l), Rhonchi (scattered) - Cardiovascular Exam Cardiovascular Exam: REGULAR RHYTHM - GI/Abdominal Exam GI & Abdominal Exam: Soft, Normal Bowel Sounds - Back Exam Back Exam: NORMAL INSPECTION - Neurological Exam Neurological Exam: Alert, Awake Additional comments: generalized weakness , follows simple commands - Skin Skin Exam: Warm Assessment and Plan (1) Acute hypercapnic respiratory failure Status: Acute (2) Klebsiella pneumonia Status: Acute (3) Dehydration Status: Acute (4) Septic shock Status: Acute (5) GEORGINA (acute kidney injury) Status: Acute (6) Type 2 diabetes mellitus with hyperglycemia Status: Chronic (7) HTN (hypertension) Status: Chronic (8) C. difficile colitis Status: Acute (9) Fungemia Status: Acute - Assessment and Plan (Free Text) Plan: Continue with CPAP trial, Continue Flagyl, Meropenem, Duoneb and rest of Tx. ICU Time: 40 min.
--- NOTE | 2016-12-11 14:17 | US ---
HISTORY: Elevated Alk Phos and GGT. COMPARISON: None. TECHNIQUE: Sonographic evaluation of the right upper quadrant of the abdomen. FINDINGS: LIVER: Measures 19.4 cm in length. Patent portal vein. Portal venous flow: Hepatopetal. Unremarkeable echogenicity of the liver parenchyma. No mass. No intrahepatic bile duct dilatation. GALLBLADDER: Evidence of adenomyomatosis and gallbladder polyps the largest 7 mm. No evidence of cholelithiasis, negative sonographic Katz's sign COMMON BILE DUCT: Measures 4.1 mm. No stones. No dilatation. PANCREAS: Unremarkable as visualized. No mass. No ductal dilatation. RIGHT KIDNEY: Measures 4.7 x 10.2 cm in length. Normal echogenicity. No calculus, mass, or hydronephrosis. AORTA: No aneurysmal dilatation. IVC: Unremarkable. OTHER FINDINGS: Bilateral pleural effusions incompletely visualized IMPRESSION: No significant or acute findings to account for/ related to the clinical presentation. Additional benign and/or incidental findings described above.
[2016-12-12] MEDS: Insulin Lispro (humaLOG) 100 Units/ml Inj SC SCH ×4 (05:00→21:30)
[2016-12-12 05:36] LABS: ABG ALLEN TEST YES; ABG MECHANICAL RATE 12; ARTERIAL BLOOD GAS HCO3 29.2 mmol/L (21-28); ARTERIAL BLOOD GAS MODE A/C; ARTERIAL BLOOD GAS O2 CAPACITY 11.6 mL/dL (16-24); ARTERIAL BLOOD GAS O2 CONTENT 11.6 ML/dL (15-23); ARTERIAL BLOOD GAS PH 7.55 (7.35-7.45); ARTERIAL BLOOD GAS PO2 171 mm/Hg (80-100); ARTERIAL BLOOD HGB O2 SAT 97.4 % (95.0-98.0); ATERIAL BLOOD GAS PEEP 5; CARBOXYHEMOGLOBIN 0.8 % (0.5-1.5); HHB 0.1 % (0.0-5.0); METHEMOGLOBIN 1.7 % (0.0-3.0)
[2016-12-12] MEDS: Albuterol-Ipratrop 3 mg / 0.5 (3 ml) UD INH SCH ×4 (07:17→19:14)
[2016-12-12] MEDS: Acetylcysteine 20% Inhal Soln (4ml) INH SCH ×2 (07:17→19:14)
[2016-12-12 08:03] LABS: HEMATOCRIT 24.3 % (35.0-51.0); MEAN CELL VOLUME 93.2 fl (80.0-94.0); MEAN CORPUSCULAR HEMOGLOBIN 30.8 pg (27.0-31.0); RED CELL DISTRIBUTION WIDTH 17.1 % (11.5-14.5); WHITE BLOOD COUNT 7.2 K/uL (4.8-10.8)
[2016-12-12 08:45] LABS: ALB/GLOB RATIO 0.5 (1.0-2.1); ALKALINE PHOSPHATASE 738 U/L (38-126); ALT/SGPT 24 U/L (21-72); AST/SGOT 21 U/L (17-59); BILIRUBIN,TOTAL 0.2 mg/dl (0.2-1.3); BLOOD UREA NITROGEN 28 mg/dl (9-20); CALCIUM 7.6 mg/dL (8.4-10.2); CARBON DIOXIDE 25 mmol/L (22-30); CHLORIDE 110 mmol/L (98-107); GFR AFRICAN-AMERICAN > 60; GLUCOSE,RANDOM 113 mg/dL (75-110); SODIUM 143 mmol/l (132-148); TOTAL PROTEIN 6.2 G/DL (6.3-8.2)
[2016-12-12] MEDS: Meropenem 1 GM in Sodium Chloride 0.9% 100 ML IVPB SCH ×2 (10:24→21:00)
--- NOTE | 2016-12-12 11:05 | RAD ---
HISTORY: Re-evaluate. Portable study 09:55. COMPARISON: Multiple serial examinations preceding the most recent study: December 11, 2016. 07:30 FINDINGS: LUNGS: Interval improvement left lower lobe infiltrate, substantial worsening right lower lobe infiltrate. PLEURA: No significant pleural effusion identified, no pneumothorax apparent. CARDIOVASCULAR: No radiographic findings to suggest acute or significant cardiovascular disease. OSSEOUS STRUCTURES: No significant abnormalities. VISUALIZED UPPER ABDOMEN: Normal. OTHER FINDINGS: Stable, satisfactory position ventilatory, vascular and nasogastric apparatus IMPRESSION: Worsening right lower lobe infiltrate with interval improvement left lower lobe infiltrate. Stable position of support apparatus.
--- NOTE | 2016-12-12 12:23 | CP.CCUPN ---
CCU Subjective - Physician Review Events Since Last Encounter (Free Text): 12/12/16 12:21 Awake in vent, was on CPAP for 6-7 hours yesterday and then got tired and switched back to AC. Now stable, awake, on AC. Still has diarrhea. Peripheral line could not be established due to arm edema and pt continue to have picc line, which was recommended to DC, by ID. CCU Objective - Vital Signs / Intake & Output Intake and Output (Last 8hrs): Intake & Output 12/11/16 12/12/16 12/12/16 22:59 06:59 14:59 Intake Total 750 910 Output Total 345 550 Balance 405 360 Intake: IV 110 280 Tube Feeding 640 480 Free Water Flush 150 Output: Gastric Amount 10 Stomach 10 Urine 335 500 Urethral (Triplett) 335 500 Stool 50 - Physical Exam Head: Positive for: Normocephalic Pupils: Positive for: PERRL Extroacular Muscles: Positive for: EOMI. Negative for: Gaze Palsy Conjunctiva: Negative for: Injected, Icteric Mouth: Positive for: Moist Mucous Membranes Neck: Positive for: Normal Range of Motion. Negative for: Meningeal Signs, JVD , Lymphadenopathy Respiratory/Chest: Positive for: Decreased Breath Sounds. Negative for: Accessory Muscle Use, Wheezes, Rhonchi Cardiovascular: Positive for: Regular Rate and Rhythm. Negative for: Murmurs, Rub Abdomen: Positive for: Normal Bowel Sounds. Negative for: Tenderness, Distention Upper Extremity: Positive for: Edema Lower Extremity: Positive for: Edema, Other (osteomyelitis of right foot). Negative for: CALF TENDERNESS, Cyanosis Neurological: Positive for: Motor Func Grossly Intact, Norm Deep Tendon Reflexes Skin: Positive for: Warm. Negative for: Rashes Psychiatric: Positive for: Alert. Negative for: Lethargic - Medications Active Medications: Active Medications Generic Name Dose Route Start Last Admin Trade Name Freq PRN Reason Stop Dose Admin Acetylcysteine 2 ml 11/27/16 20:00 12/12/16 07:17 Acetylcysteine 20% INH 2 ml RBID LARRY Administration Albuterol/Ipratropium 3 ml 12/09/16 12:00 12/12/16 11:07 Duoneb 3 Mg/0.5 Mg (3 Ml) Ud INH 3 ml RQID LARRY Administration Collagenase 1 applic 12/08/16 16:15 12/11/16 08:23 Santyl TOP 1 applic DAILY LARRY Administration Meropenem 1 gm/ Sodium 100 mls @ 100 mls/hr 12/08/16 10:00 12/12/16 10:24 Chloride IVPB 100 mls/hr Q12 LARRY Administration Voriconazole 300 mg/ Sodium 250 mls @ 125 mls/hr 12/10/16 09:00 12/11/16 22: 00 Chloride IVPB 125 mls/hr Q12 LARRY Administration Insulin Human Lispro 0 units 12/06/16 22:00 12/11/16 22:00 Humalog SC Not Given Q6 LARRY Protocol Metronidazole 500 mg 11/27/16 11:00 12/12/16 11:21 Flagyl PO 500 mg Q8 LARRY Administration Nystatin 1 applic 12/08/16 17:00 12/12/16 11:29 Nystop Topical Powder TOP 1 pow TID LARRY Administration Pantoprazole Sodium 40 mg 12/09/16 09:00 12/12/16 10:25 Protonix Inj IVP 40 mg DAILY LARRY Administration - Patient Studies Lab Studies: Microbiology Studies 12/10/16 18:30 Blood Culture - Preliminary Blood-Venous NO GROWTH AFTER 24 HOURS 12/10/16 18:30 Blood Culture - Preliminary Blood-Venous NO GROWTH AFTER 24 HOURS 12/06/16 17:30 Blood Culture - Final Blood-Venous NO GROWTH AFTER 5 DAYS Gram Stain - Final TEST NOT PERFORMED 12/06/16 17:50 Blood Culture - Final Blood-Venous NO GROWTH AFTER 5 DAYS Gram Stain - Final TEST NOT PERFORMED Lab Studies 12/12/16 12/12/16 12/12/16 Range/Units 08:15 07:30 05:39 WBC 7.2 (4.8-10.8) K/uL RBC 2.61 L (4.40-5.90) Mil/uL Hgb 8.0 L (12.0-18.0) g/dL Hct 24.3 L (35.0-51.0) % MCV 93.2 (80.0-94.0) fl MCH 30.8 (27.0-31.0) pg MCHC 33.0 (33.0-37.0) g/dL RDW 17.1 H (11.5-14.5) % Plt Count 207 (130-400) K/uL pCO2 (35-45) mm/Hg pO2 (80-100) mm/Hg HCO3 (21-28) mmol/L ABG pH (7.35-7.45) ABG Total CO2 (22-28) mmol/L ABG O2 Saturation (95-98) % ABG O2 Content (15-23) ML/dL ABG Base Excess (-2.0-3.0) mmol/L ABG Hemoglobin (11.7-17.4) g/dL ABG Carboxyhemoglobin (0.5-1.5) % POC ABG HHb (Measured) (0.0-5.0) % ABG Methemoglobin (0.0-3.0) % ABG O2 Capacity (16-24) mL/dL Torres Test A-a O2 Difference mm/Hg Hgb O2 Saturation (95.0-98.0) % Vent Mode Mechanical Rate FiO2 % Tidal Volume PEEP Sodium 143 (132-148) mmol/l Potassium 4.0 (3.6-5.0) MMOL/L Chloride 110 H (98-107) mmol/L Carbon Dioxide 25 (22-30) mmol/L Anion Gap 12 (10-20) BUN 28 H (9-20) mg/dl Creatinine 0.9 (0.8-1.5) mg/dL Est GFR ( Amer) > 60 Est GFR (Non-Af Amer) > 60 POC Glucose (mg/dL) 134 H (65-110) mg/dL Random Glucose 113 H (75-110) mg/dL Calcium 7.6 L (8.4-10.2) mg/dL Total Bilirubin 0.2 (0.2-1.3) mg/dl AST 21 (17-59) U/L ALT 24 (21-72) U/L Alkaline Phosphatase 738 H (38-126) U/L Total Protein 6.2 L (6.3-8.2) G/DL Albumin 2.1 L (3.5-5.0) g/dL Globulin 4.2 H (2.2-3.9) gm/dL Albumin/Globulin Ratio 0.5 L (1.0-2.1) 12/12/16 12/11/16 12/11/16 Range/Units 05:30 23:20 15:59 WBC (4.8-10.8) K/uL RBC (4.40-5.90) Mil/uL Hgb (12.0-18.0) g/dL Hct (35.0-51.0) % MCV (80.0-94.0) fl MCH (27.0-31.0) pg MCHC (33.0-37.0) g/dL RDW (11.5-14.5) % Plt Count (130-400) K/uL pCO2 32 L (35-45) mm/Hg pO2 171 H (80-100) mm/Hg HCO3 29.2 H (21-28) mmol/L ABG pH 7.55 H (7.35-7.45) ABG Total CO2 29.0 H (22-28) mmol/L ABG O2 Saturation 99.9 H (95-98) % ABG O2 Content 11.6 L (15-23) ML/dL ABG Base Excess 5.4 H (-2.0-3.0) mmol/L ABG Hemoglobin 8.2 L (11.7-17.4) g/dL ABG Carboxyhemoglobin 0.8 (0.5-1.5) % POC ABG HHb (Measured) 0.1 (0.0-5.0) % ABG Methemoglobin 1.7 (0.0-3.0) % ABG O2 Capacity 11.6 L (16-24) mL/dL Torres Test Yes A-a O2 Difference 74.0 mm/Hg Hgb O2 Saturation 97.4 (95.0-98.0) % Vent Mode A/c Mechanical Rate 12 FiO2 40.0 % Tidal Volume 450 PEEP 5 Sodium (132-148) mmol/l Potassium (3.6-5.0) MMOL/L Chloride (98-107) mmol/L Carbon Dioxide (22-30) mmol/L Anion Gap (10-20) BUN (9-20) mg/dl Creatinine (0.8-1.5) mg/dL Est GFR ( Amer) Est GFR (Non-Af Amer) POC Glucose (mg/dL) 146 H 107 (65-110) mg/dL Random Glucose (75-110) mg/dL Calcium (8.4-10.2) mg/dL Total Bilirubin (0.2-1.3) mg/dl AST (17-59) U/L ALT (21-72) U/L Alkaline Phosphatase (38-126) U/L Total Protein (6.3-8.2) G/DL Albumin (3.5-5.0) g/dL Globulin (2.2-3.9) gm/dL Albumin/Globulin Ratio (1.0-2.1) Laboratory Results - last 24 hr 12/11/16 12/11/16 12/12/16 15:59 23:20 05:30 WBC RBC Hgb Hct MCV MCH MCHC RDW Plt Count pCO2 32 L pO2 171 H HCO3 29.2 H ABG pH 7.55 H ABG Total CO2 29.0 H ABG O2 Saturation 99.9 H ABG O2 Content 11.6 L ABG Base Excess 5.4 H ABG Hemoglobin 8.2 L ABG Carboxyhemoglobin 0.8 POC ABG HHb (Measured) 0.1 ABG Methemoglobin 1.7 ABG O2 Capacity 11.6 L Torres Test Yes A-a O2 Difference 74.0 Hgb O2 Saturation 97.4 Vent Mode A/c Mechanical Rate 12 FiO2 40.0 Tidal Volume 450 PEEP 5 Sodium Potassium Chloride Carbon Dioxide Anion Gap BUN Creatinine Est GFR ( Amer) Est GFR (Non-Af Amer) POC Glucose (mg/dL) 107 146 H Random Glucose Calcium Total Bilirubin AST ALT Alkaline Phosphatase Total Protein Albumin Globulin Albumin/Globulin Ratio 12/12/16 12/12/16 12/12/16 05:39 07:30 08:15 WBC 7.2 RBC 2.61 L Hgb 8.0 L Hct 24.3 L MCV 93.2 MCH 30.8 MCHC 33.0 RDW 17.1 H Plt Count 207 pCO2 pO2 HCO3 ABG pH ABG Total CO2 ABG O2 Saturation ABG O2 Content ABG Base Excess ABG Hemoglobin ABG Carboxyhemoglobin POC ABG HHb (Measured) ABG Methemoglobin ABG O2 Capacity Torres Test A-a O2 Difference Hgb O2 Saturation Vent Mode Mechanical Rate FiO2 Tidal Volume PEEP Sodium 143 Potassium 4.0 Chloride 110 H Carbon Dioxide 25 Anion Gap 12 BUN 28 H Creatinine 0.9 Est GFR ( Amer) > 60 Est GFR (Non-Af Amer) > 60 POC Glucose (mg/dL) 134 H Random Glucose 113 H Calcium 7.6 L Total Bilirubin 0.2 AST 21 ALT 24 Alkaline Phosphatase 738 H Total Protein 6.2 L Albumin 2.1 L Globulin 4.2 H Albumin/Globulin Ratio 0.5 L Fingerstick Blood Sugar Results: 134 Review of Systems - Review of Systems Systems not reviewed;Unavailable: Unstable Vital Signs - EENT Eyes: UNREMARKABLE Nose/Mouth/Throat: UNREMARKABLE - Cardiovascular Cardiovascular: UNREMARKABLE - Respiratory Respiratory: As Per HPI, Chest Congestion - Gastrointestinal Gastrointestinal: UNREMARKABLE Assessment/Plan - Assessment and Plan (Free Text) Assessment: Resp failure: Has been on AC overnight, did tolerate CPAP for 7 hours yesterday , 12/11 but did not tolerate for more than 20 minutes on 12/10 PNA Fungemia: On antifungal meds Edema: mainly due to low albumin, Plan: Continue current meds and antifungal meds Will try to establish peripheral line and if successful, will remove picc line Abdominal US, to r/o obstruction in view of high Alk phosph, NPO at the mement, will resume enteral feeding post US GI on board Will change to CPAP again today with 15 PS Continue other meds, reviewed. Time spent 35 minutes.
[2016-12-12 12:47] LABS: ALKALINE PHOSPHATASE 725 U/L (40-115)
[2016-12-12] MEDS: Santyl Collagenase OINTMENT TOP SCH (13:28)
--- NOTE | 2016-12-12 13:43 | CP.PCM.PN ---
Subjective - Date & Time of Evaluation Date of Evaluation: 12/12/16 Time of Evaluation: 12:20 - Subjective Subjective: F/U Respiratory failure. Pt awake, follows commands, back on ventilator, PRVC/AC FIO2 40%, VS stable. Objective - Vital Signs/Intake and Output Vital Signs (last 24 hours): Temp Pulse Resp BP Pulse Ox 100.7 F H 87 16 133/63 100 12/12/16 12:00 12/12/16 06:00 12/12/16 06:00 12/12/16 06:00 12/12/16 06:00 Intake and Output: 12/12/16 12/12/16 06:59 18:59 Intake Total 1340 Output Total 760 Balance 580 - Medications Medications: Current Medications Acetylcysteine (Acetylcysteine 20%) 2 ml INH RBID [facility] Last Admin: 12/12/16 07:17 Dose: 2 ml Albuterol/Ipratropium (Duoneb 3 Mg/0.5 Mg (3 Ml) Ud) 3 ml INH RQID [facility] Last Admin: 12/12/16 11:07 Dose: 3 ml Collagenase (Santyl) 1 applic TOP DAILY [facility] Last Admin: 12/12/16 13:28 Dose: 1 applic Meropenem 1 gm/ Sodium (Chloride) 100 mls @ 100 mls/hr IVPB Q12 [facility] Last Admin: 12/12/16 10:24 Dose: 100 mls/hr Voriconazole 300 mg/ Sodium (Chloride) 250 mls @ 125 mls/hr IVPB Q12 LARRY Last Admin: 12/12/16 13:28 Dose: 125 mls/hr Insulin Human Lispro (Humalog) 0 units SC Q6 LARRY PRN Reason: Protocol Last Admin: 12/12/16 13:30 Dose: Not Given Metronidazole (Flagyl) 500 mg PO Q8 [facility] Last Admin: 12/12/16 11:21 Dose: 500 mg Nystatin (Nystop Topical Powder) 1 applic TOP TID [facility] Last Admin: 12/12/16 13:30 Dose: Not Given Pantoprazole Sodium (Protonix Inj) 40 mg IVP DAILY [facility] Last Admin: 12/12/16 10:25 Dose: 40 mg - Labs Labs: 12/12/16 07:30 12/12/16 08:15 PT 13.2 Seconds (9.8-13.1) H 12/10/16 04:20 INR 1.3 (0.9-1.2) H 12/10/16 04:20 APTT 35.7 Seconds (25.6-37.1) 12/10/16 04:20 - Constitutional Appears: Chronically Ill - Head Exam Head Exam: NORMAL INSPECTION - Eye Exam Eye Exam: PERRL - ENT Exam Additional comments: Intubated - Neck Exam Neck Exam: Normal Inspection - Respiratory Exam Respiratory Exam: Decreased Breath Sounds (b/l), Rhonchi (scattered) - Cardiovascular Exam Cardiovascular Exam: REGULAR RHYTHM - GI/Abdominal Exam GI & Abdominal Exam: Soft, Normal Bowel Sounds - Extremities Exam Additional comments: L hip redness. R heel discolored, edema upper extremities. - Back Exam Back Exam: NORMAL INSPECTION - Neurological Exam Neurological Exam: Awake Additional comments: Response to tactile stimuli, generalized weakness. - Psychiatric Exam Additional comments: Calm - Skin Skin Exam: Warm Assessment and Plan (1) Acute hypercapnic respiratory failure Status: Acute (2) Klebsiella pneumonia Status: Acute (3) Dehydration Status: Acute (4) Septic shock Status: Acute (5) GEORGINA (acute kidney injury) Status: Acute (6) Type 2 diabetes mellitus with hyperglycemia Status: Chronic (7) HTN (hypertension) Status: Chronic (8) C. difficile colitis Status: Acute (9) Fungemia Status: Acute - Assessment and Plan (Free Text) Plan: CXR 12/12/16 shows: Worsening RLL infiltrate with interval improvement in the LLL. Continue Meropenem, Duoneb, Lasix and rest of Tx. ICU Time: 35 min.
[2016-12-12] MEDS: Acetaminophen 650mg/20.3ml solution UD PO PRN (21:18)
[2016-12-13 04:41] LABS: ABG ALLEN TEST YES; ABG MECHANICAL RATE 12; ARTERIAL BLOOD GAS MODE PRVC AC; ARTERIAL BLOOD GAS O2 CAPACITY 11.4 mL/dL (16-24); ARTERIAL BLOOD GAS O2 CONTENT 11.4 ML/dL (15-23); ARTERIAL BLOOD GAS PH 7.54 (7.35-7.45); ARTERIAL BLOOD GAS PO2 144 mm/Hg (80-100); ATERIAL BLOOD GAS PEEP 5; HHB 0.1 % (0.0-5.0); METHEMOGLOBIN 1.9 % (0.0-3.0)
[2016-12-13] MEDS: Insulin Lispro (humaLOG) 100 Units/ml Inj SC SCH ×5 (06:17→21:48)
[2016-12-13 06:28] LABS: HEMATOCRIT 22.7 % (35.0-51.0); MEAN CORPUSCULAR HEMOGLOBIN 30.2 pg (27.0-31.0); MEAN CORPUSCULAR HGB CONC 32.8 g/dL (33.0-37.0); RED CELL DISTRIBUTION WIDTH 16.9 % (11.5-14.5); WHITE BLOOD COUNT 7.1 K/uL (4.8-10.8)
[2016-12-13 06:43] LABS: BLOOD UREA NITROGEN 28 mg/dl (9-20); CALCIUM 7.6 mg/dL (8.4-10.2); CARBON DIOXIDE 27 mmol/L (22-30); CHLORIDE 111 mmol/L (98-107); GFR AFRICAN-AMERICAN > 60; GLUCOSE,RANDOM 93 mg/dL (75-110); POTASSIUM 3.9 MMOL/L (3.6-5.0); SODIUM 142 mmol/l (132-148)
--- NOTE | 2016-12-13 07:30 | CP.CCUPN ---
CCU Subjective - Physician Review Subjective (Free Text): Awake, but not interactive to, nor following verbal commands. Day #10 MV support. Breathing now at 18 on AC 12, TV 450, Peep 5, 40% oxygen, SPO2 100%. Intermittent tolerance to prolonged CPAP trials noted ( up to over 6 hours). He did tolerate SBT so far today, on CPAP 5 PS up to 15. Minimal secretions noted on ETT suctioning. PICC line removed yesterday as per ID. Other vitals and I/O's reviewed. Low grade fevers noted up to 100.7 F yesterday , now remains mostly 99F. Persistent +fluid balance noted. ROS: unobtainable from intubated patient. No other pertinent negs or positives on 10+ system review. PMSFH: All Nursing and physician documentation reviewed to date; no new pertinent info noted relevant to current medical problems. CXR: (my interp) ETT position OK above shira, RLL/RML infiltrate and LLL shows prominent interstitial changes. MAJOR PROBLEMS: 1. Acute Hypercapneic Resp Failure ( 2nd time intubation on 12/04, 1st time 11/20 -extubated 11/24) 2' Pneumonia 2. s/p Ventricular Arrhythmias, ?? 2' to Alkalosis 3. Staph Bacteremia 4. Fungemia 5. s/p Hypernatremia with Azotemia 6. Chronic Disease Anemia with Coagulopathy, and +FOBT (rec'd iii PRBCS on 12/04 -12/05) 7. s/ p Paroxysmal A Fib with RVR (12/05) PLAN: 1. Possible new infiltrates noted along LLL now. Approaching need for Trach assessment. Doubt tolerance to further weans and extubation until significant fluid can be diuresed. Todays CXR appears worse (my interp) with bibasilar interstitial changes. Repeat Sputum cultures. 2. Connie/ Voriconazole coverage noted. Repeat BCs (peripheral) are negative as of 12/10. New Triplett inserted on 12/04 which grew +Yeast. C. diff negative on . 3. Marked elevation in GGT and progressive increases in Alk Phos noted, now slowly resolving, Abd US negative. Abdomen is benign on clinical exam. 4. Lasix prn. Try to keep negative fluid balance. ECHO done 12/08 cine-video reviewed. Official report mentions no presence of any vegetative disease. 5. Will eventually need to central venous access again. CCU Objective - Vital Signs / Intake & Output Vital Signs (Last 4 hours): Vital Signs Temp Pulse Resp BP Pulse Ox 12/13/16 06:00 94 H 16 113/58 L 10 L 12/13/16 04:00 99.9 F H 90 15 128/60 99 Intake and Output (Last 8hrs): Intake & Output 12/12/16 12/13/16 12/13/16 22:59 06:59 14:59 Intake Total 630 1080 Output Total 680 200 Balance -50 880 Intake: IV 310 290 Tube Feeding 320 640 Free Water Flush 150 Output: Gastric Amount 80 Stomach 80 Urine 600 200 Urethral (Triplett) 600 200 Other: # Bowel Movements 50 - Physical Exam Head: Positive for: Normocephalic Pupils: Positive for: PERRL Extroacular Muscles: Positive for: EOMI. Negative for: Gaze Palsy Conjunctiva: Negative for: Injected, Icteric Mouth: Positive for: Moist Mucous Membranes Neck: Positive for: Normal Range of Motion. Negative for: Meningeal Signs, JVD , Lymphadenopathy Respiratory/Chest: Positive for: Decreased Breath Sounds. Negative for: Accessory Muscle Use, Wheezes, Rhonchi Cardiovascular: Positive for: Regular Rate and Rhythm. Negative for: Murmurs, Rub Abdomen: Positive for: Normal Bowel Sounds. Negative for: Tenderness, Distention Upper Extremity: Positive for: Edema (marked edema / anasarca bilat) Lower Extremity: Positive for: Edema, Other (osteomyelitis of right foot). Negative for: CALF TENDERNESS, Cyanosis Neurological: Positive for: Motor Func Grossly Intact, Norm Deep Tendon Reflexes Skin: Positive for: Warm. Negative for: Rashes Psychiatric: Positive for: Alert. Negative for: Lethargic - Medications Active Medications: Active Medications Generic Name Dose Route Start Last Admin Trade Name Freq PRN Reason Stop Dose Admin Acetaminophen 650 mg 12/12/16 21:03 12/12/16 21:18 Tylenol 650mg/20.3ml Solution Ud PO 650 mg Q6 PRN Administration fever Albuterol/Ipratropium 3 ml 12/09/16 12:00 12/12/16 19:14 Duoneb 3 Mg/0.5 Mg (3 Ml) Ud INH 3 ml RQID LARRY Administration Collagenase 1 applic 12/08/16 16:15 12/12/16 13:28 Santyl TOP 1 applic DAILY LARRY Administration Meropenem 1 gm/ Sodium 100 mls @ 100 mls/hr 12/08/16 10:00 12/12/16 21:00 Chloride IVPB 100 mls/hr Q12 LARRY Administration Voriconazole 300 mg/ Sodium 250 mls @ 125 mls/hr 12/10/16 09:00 12/12/16 21: 24 Chloride IVPB 125 mls/hr Q12 LARRY Administration Insulin Human Lispro 0 units 12/06/16 22:00 12/13/16 06:17 Humalog SC Not Given Q6 LARRY Protocol Nystatin 1 applic 12/08/16 17:00 12/12/16 18:50 Nystop Topical Powder TOP 1 pow TID LARRY Administration Pantoprazole Sodium 40 mg 12/09/16 09:00 12/12/16 10:25 Protonix Inj IVP 40 mg DAILY LARRY Administration - Patient Studies Lab Studies: Microbiology Studies 12/10/16 18:30 Blood Culture - Preliminary Blood-Venous NO GROWTH AFTER 48 HOURS 12/10/16 18:30 Blood Culture - Preliminary Blood-Venous NO GROWTH AFTER 48 HOURS Lab Studies 12/13/16 12/13/16 12/13/16 Range/Units 06:26 06:10 06:10 WBC 7.1 (4.8-10.8) K/uL RBC 2.46 L (4.40-5.90) Mil/uL Hgb 7.4 L (12.0-18.0) g/dL Hct 22.7 L (35.0-51.0) % MCV 92.0 (80.0-94.0) fl MCH 30.2 (27.0-31.0) pg MCHC 32.8 L (33.0-37.0) g/dL RDW 16.9 H (11.5-14.5) % Plt Count 227 (130-400) K/uL pCO2 (35-45) mm/Hg pO2 (80-100) mm/Hg HCO3 (21-28) mmol/L ABG pH (7.35-7.45) ABG Total CO2 (22-28) mmol/L ABG O2 Saturation (95-98) % ABG O2 Content (15-23) ML/dL ABG Base Excess (-2.0-3.0) mmol/L ABG Hemoglobin (11.7-17.4) g/dL ABG Carboxyhemoglobin (0.5-1.5) % POC ABG HHb (Measured) (0.0-5.0) % ABG Methemoglobin (0.0-3.0) % ABG O2 Capacity (16-24) mL/dL Torres Test A-a O2 Difference mm/Hg Hgb O2 Saturation (95.0-98.0) % Vent Mode Mechanical Rate FiO2 % Tidal Volume PEEP Sodium 142 (132-148) mmol/l Potassium 3.9 (3.6-5.0) MMOL/L Chloride 111 H (98-107) mmol/L Carbon Dioxide 27 (22-30) mmol/L Anion Gap 8 L (10-20) BUN 28 H (9-20) mg/dl Creatinine 0.9 (0.8-1.5) mg/dL Est GFR ( Amer) > 60 Est GFR (Non-Af Amer) > 60 POC Glucose (mg/dL) 102 (65-110) mg/dL Random Glucose 93 (75-110) mg/dL Calcium 7.6 L (8.4-10.2) mg/dL Total Bilirubin (0.2-1.3) mg/dl AST (17-59) U/L ALT (21-72) U/L Alkaline Phosphatase (40-115) U/L Total Protein (6.3-8.2) G/DL Albumin (3.5-5.0) g/dL Globulin (2.2-3.9) gm/dL Albumin/Globulin Ratio (1.0-2.1) 12/13/16 12/12/16 12/12/16 Range/Units 04:16 21:29 16:38 WBC (4.8-10.8) K/uL RBC (4.40-5.90) Mil/uL Hgb (12.0-18.0) g/dL Hct (35.0-51.0) % MCV (80.0-94.0) fl MCH (27.0-31.0) pg MCHC (33.0-37.0) g/dL RDW (11.5-14.5) % Plt Count (130-400) K/uL pCO2 36 (35-45) mm/Hg pO2 144 H (80-100) mm/Hg HCO3 31.0 H (21-28) mmol/L ABG pH 7.54 H (7.35-7.45) ABG Total CO2 31.9 H (22-28) mmol/L ABG O2 Saturation 99.9 H (95-98) % ABG O2 Content 11.4 L (15-23) ML/dL ABG Base Excess 7.7 H (-2.0-3.0) mmol/L ABG Hemoglobin 8.1 L (11.7-17.4) g/dL ABG Carboxyhemoglobin 1.0 (0.5-1.5) % POC ABG HHb (Measured) 0.1 (0.0-5.0) % ABG Methemoglobin 1.9 (0.0-3.0) % ABG O2 Capacity 11.4 L (16-24) mL/dL Torres Test Yes A-a O2 Difference 96.0 mm/Hg Hgb O2 Saturation 97.0 (95.0-98.0) % Vent Mode Prvc ac Mechanical Rate 12 FiO2 40.0 % Tidal Volume 450 PEEP 5 Sodium (132-148) mmol/l Potassium (3.6-5.0) MMOL/L Chloride (98-107) mmol/L Carbon Dioxide (22-30) mmol/L Anion Gap (10-20) BUN (9-20) mg/dl Creatinine (0.8-1.5) mg/dL Est GFR ( Amer) Est GFR (Non-Af Amer) POC Glucose (mg/dL) 152 H 125 H (65-110) mg/dL Random Glucose (75-110) mg/dL Calcium (8.4-10.2) mg/dL Total Bilirubin (0.2-1.3) mg/dl AST (17-59) U/L ALT (21-72) U/L Alkaline Phosphatase (40-115) U/L Total Protein (6.3-8.2) G/DL Albumin (3.5-5.0) g/dL Globulin (2.2-3.9) gm/dL Albumin/Globulin Ratio (1.0-2.1) 12/12/16 12/12/16 12/12/16 Range/Units 11:31 08:15 07:30 WBC 7.2 (4.8-10.8) K/uL RBC 2.61 L (4.40-5.90) Mil/uL Hgb 8.0 L (12.0-18.0) g/dL Hct 24.3 L (35.0-51.0) % MCV 93.2 (80.0-94.0) fl MCH 30.8 (27.0-31.0) pg MCHC 33.0 (33.0-37.0) g/dL RDW 17.1 H (11.5-14.5) % Plt Count 207 (130-400) K/uL pCO2 (35-45) mm/Hg pO2 (80-100) mm/Hg HCO3 (21-28) mmol/L ABG pH (7.35-7.45) ABG Total CO2 (22-28) mmol/L ABG O2 Saturation (95-98) % ABG O2 Content (15-23) ML/dL ABG Base Excess (-2.0-3.0) mmol/L ABG Hemoglobin (11.7-17.4) g/dL ABG Carboxyhemoglobin (0.5-1.5) % POC ABG HHb (Measured) (0.0-5.0) % ABG Methemoglobin (0.0-3.0) % ABG O2 Capacity (16-24) mL/dL Torres Test A-a O2 Difference mm/Hg Hgb O2 Saturation (95.0-98.0) % Vent Mode Mechanical Rate FiO2 % Tidal Volume PEEP Sodium 143 (132-148) mmol/l Potassium 4.0 (3.6-5.0) MMOL/L Chloride 110 H (98-107) mmol/L Carbon Dioxide 25 (22-30) mmol/L Anion Gap 12 (10-20) BUN 28 H (9-20) mg/dl Creatinine 0.9 (0.8-1.5) mg/dL Est GFR ( Amer) > 60 Est GFR (Non-Af Amer) > 60 POC Glucose (mg/dL) 118 H (65-110) mg/dL Random Glucose 113 H (75-110) mg/dL Calcium 7.6 L (8.4-10.2) mg/dL Total Bilirubin 0.2 (0.2-1.3) mg/dl AST 21 (17-59) U/L ALT 24 (21-72) U/L Alkaline Phosphatase 738 H (40-115) U/L Total Protein 6.2 L (6.3-8.2) G/DL Albumin 2.1 L (3.5-5.0) g/dL Globulin 4.2 H (2.2-3.9) gm/dL Albumin/Globulin Ratio 0.5 L (1.0-2.1) 12/10/16 Range/Units 18:30 WBC (4.8-10.8) K/uL RBC (4.40-5.90) Mil/uL Hgb (12.0-18.0) g/dL Hct (35.0-51.0) % MCV (80.0-94.0) fl MCH (27.0-31.0) pg MCHC (33.0-37.0) g/dL RDW (11.5-14.5) % Plt Count (130-400) K/uL pCO2 (35-45) mm/Hg pO2 (80-100) mm/Hg HCO3 (21-28) mmol/L ABG pH (7.35-7.45) ABG Total CO2 (22-28) mmol/L ABG O2 Saturation (95-98) % ABG O2 Content (15-23) ML/dL ABG Base Excess (-2.0-3.0) mmol/L ABG Hemoglobin (11.7-17.4) g/dL ABG Carboxyhemoglobin (0.5-1.5) % POC ABG HHb (Measured) (0.0-5.0) % ABG Methemoglobin (0.0-3.0) % ABG O2 Capacity (16-24) mL/dL Torres Test A-a O2 Difference mm/Hg Hgb O2 Saturation (95.0-98.0) % Vent Mode Mechanical Rate FiO2 % Tidal Volume PEEP Sodium (132-148) mmol/l Potassium (3.6-5.0) MMOL/L Chloride (98-107) mmol/L Carbon Dioxide (22-30) mmol/L Anion Gap (10-20) BUN (9-20) mg/dl Creatinine (0.8-1.5) mg/dL Est GFR ( Amer) Est GFR (Non-Af Amer) POC Glucose (mg/dL) (65-110) mg/dL Random Glucose (75-110) mg/dL Calcium (8.4-10.2) mg/dL Total Bilirubin (0.2-1.3) mg/dl AST (17-59) U/L ALT (21-72) U/L Alkaline Phosphatase 725 H (40-115) U/L Total Protein (6.3-8.2) G/DL Albumin (3.5-5.0) g/dL Globulin (2.2-3.9) gm/dL Albumin/Globulin Ratio (1.0-2.1) Laboratory Results - last 24 hr 12/10/16 12/12/16 12/12/16 18:30 07:30 08:15 WBC 7.2 RBC 2.61 L Hgb 8.0 L Hct 24.3 L MCV 93.2 MCH 30.8 MCHC 33.0 RDW 17.1 H Plt Count 207 pCO2 pO2 HCO3 ABG pH ABG Total CO2 ABG O2 Saturation ABG O2 Content ABG Base Excess ABG Hemoglobin ABG Carboxyhemoglobin POC ABG HHb (Measured) ABG Methemoglobin ABG O2 Capacity Torres Test A-a O2 Difference Hgb O2 Saturation Vent Mode Mechanical Rate FiO2 Tidal Volume PEEP Sodium 143 Potassium 4.0 Chloride 110 H Carbon Dioxide 25 Anion Gap 12 BUN 28 H Creatinine 0.9 Est GFR ( Amer) > 60 Est GFR (Non-Af Amer) > 60 POC Glucose (mg/dL) Random Glucose 113 H Calcium 7.6 L Total Bilirubin 0.2 AST 21 ALT 24 Alkaline Phosphatase 725 H 738 H Total Protein 6.2 L Albumin 2.1 L Globulin 4.2 H Albumin/Globulin Ratio 0.5 L 12/12/16 12/12/16 12/12/16 11:31 16:38 21:29 WBC RBC Hgb Hct MCV MCH MCHC RDW Plt Count pCO2 pO2 HCO3 ABG pH ABG Total CO2 ABG O2 Saturation ABG O2 Content ABG Base Excess ABG Hemoglobin ABG Carboxyhemoglobin POC ABG HHb (Measured) ABG Methemoglobin ABG O2 Capacity Torres Test A-a O2 Difference Hgb O2 Saturation Vent Mode Mechanical Rate FiO2 Tidal Volume PEEP Sodium Potassium Chloride Carbon Dioxide Anion Gap BUN Creatinine Est GFR ( Amer) Est GFR (Non-Af Amer) POC Glucose (mg/dL) 118 H 125 H 152 H Random Glucose Calcium Total Bilirubin AST ALT Alkaline Phosphatase Total Protein Albumin Globulin Albumin/Globulin Ratio 12/13/16 12/13/16 12/13/16 04:16 06:10 06:10 WBC 7.1 RBC 2.46 L Hgb 7.4 L Hct 22.7 L MCV 92.0 MCH 30.2 MCHC 32.8 L RDW 16.9 H Plt Count 227 pCO2 36 pO2 144 H HCO3 31.0 H ABG pH 7.54 H ABG Total CO2 31.9 H ABG O2 Saturation 99.9 H ABG O2 Content 11.4 L ABG Base Excess 7.7 H ABG Hemoglobin 8.1 L ABG Carboxyhemoglobin 1.0 POC ABG HHb (Measured) 0.1 ABG Methemoglobin 1.9 ABG O2 Capacity 11.4 L Torres Test Yes A-a O2 Difference 96.0 Hgb O2 Saturation 97.0 Vent Mode Prvc ac Mechanical Rate 12 FiO2 40.0 Tidal Volume 450 PEEP 5 Sodium 142 Potassium 3.9 Chloride 111 H Carbon Dioxide 27 Anion Gap 8 L BUN 28 H Creatinine 0.9 Est GFR ( Amer) > 60 Est GFR (Non-Af Amer) > 60 POC Glucose (mg/dL) Random Glucose 93 Calcium 7.6 L Total Bilirubin AST ALT Alkaline Phosphatase Total Protein Albumin Globulin Albumin/Globulin Ratio 12/13/16 06:26 WBC RBC Hgb Hct MCV MCH MCHC RDW Plt Count pCO2 pO2 HCO3 ABG pH ABG Total CO2 ABG O2 Saturation ABG O2 Content ABG Base Excess ABG Hemoglobin ABG Carboxyhemoglobin POC ABG HHb (Measured) ABG Methemoglobin ABG O2 Capacity Torres Test A-a O2 Difference Hgb O2 Saturation Vent Mode Mechanical Rate FiO2 Tidal Volume PEEP Sodium Potassium Chloride Carbon Dioxide Anion Gap BUN Creatinine Est GFR ( Amer) Est GFR (Non-Af Amer) POC Glucose (mg/dL) 102 Random Glucose Calcium Total Bilirubin AST ALT Alkaline Phosphatase Total Protein Albumin Globulin Albumin/Globulin Ratio Radiology Interpretations (Free Text): CXR: (my interp) ETT position OK above shira, RLL/RML infiltrate and LLL shows prominent interstitial changes. Fingerstick Blood Sugar Results: 102 Review of Systems - Review of Systems All systems: reviewed and no additional remarkable complaints except (as above) Critical Care Progress Note - Ventilator Checklist Head of Bed 30 Degrees: Yes Daily Sedation Vacation: Yes Daily Assessment of Readiness to Wean: Yes Daily Spontaneous Breathing Trial: Yes PUD Prophalyxis: Yes DVT Prophylaxis: Yes Oral Care with Chlorhexidine Gluconate {CHG}: Yes - Vent Settings MODE:: ASSIST CONTROL TIDAL VOLUME:: 450 RESP RATE:: 12 FIO2:: 40 PEEP:: 5 - Extremities/Vascular Does the Patient have a Central Venous Catheter?: No Does the Patient need a Central Venous Catheter?: Yes Does the Patient have a Triplett Catheter?: Yes Does the Patient need a Triplett Catheter?: Yes Catheter Insertion Criteria: Need for accurate measurement of output in critically ill patient - Prophylaxis GI Prophylaxis GI: PPI - Prophylaxis DVT Prophylaxis DVT: SCDs
[2016-12-13] MEDS: Albuterol-Ipratrop 3 mg / 0.5 (3 ml) UD INH SCH ×4 (08:21→19:15)
--- NOTE | 2016-12-13 08:40 | RAD ---
HISTORY: re-evaluate COMPARISON: December 12, 2016. Multiple serial examinations preceding the most recent study: FINDINGS: LUNGS: Interval improvement right lower lobe infiltrate. PLEURA: No significant pleural effusion identified, no pneumothorax apparent. CARDIOVASCULAR: Underlying pulmonary vascular congestion. OSSEOUS STRUCTURES: No significant abnormalities. VISUALIZED UPPER ABDOMEN: Normal. OTHER FINDINGS: Stable position of support apparatus including endotracheal tube and nasogastric tube. IMPRESSION: Modest interval improvement in right lower lobe infiltrate.
[2016-12-13] MEDS: Meropenem 1 GM in Sodium Chloride 0.9% 100 ML IVPB SCH ×2 (08:55→20:32)
[2016-12-13] MEDS: Santyl Collagenase OINTMENT TOP SCH (11:25)
--- NOTE | 2016-12-13 11:51 | CP.PCM.PN ---
Subjective - Date & Time of Evaluation Date of Evaluation: 12/13/16 Time of Evaluation: 09:30 - Subjective Subjective: no overnight events Objective - Vital Signs/Intake and Output Vital Signs (last 24 hours): Temp Pulse Resp BP Pulse Ox 98.9 F 92 H 18 120/75 100 12/13/16 08:00 12/13/16 08:00 12/13/16 08:00 12/13/16 08:00 12/13/16 08:00 Intake and Output: 12/13/16 12/13/16 06:59 18:59 Intake Total 1510 100 Output Total 300 Balance 1210 100 - Medications Medications: Current Medications Acetaminophen (Tylenol 650mg/20.3ml Solution Ud) 650 mg PO Q6 PRN PRN Reason: fever Last Admin: 12/12/16 21:18 Dose: 650 mg Albuterol/Ipratropium (Duoneb 3 Mg/0.5 Mg (3 Ml) Ud) 3 ml INH RQID [facility] Last Admin: 12/13/16 11:12 Dose: 3 ml Collagenase (Santyl) 1 applic TOP DAILY [facility] Last Admin: 12/12/16 13:28 Dose: 1 applic Furosemide (Lasix) 40 mg IV DAILY LARRY Voriconazole 300 mg/ Sodium (Chloride) 250 mls @ 125 mls/hr IVPB Q12 LARRY Last Admin: 12/12/16 21:24 Dose: 125 mls/hr Insulin Human Lispro (Humalog) 0 units SC Q6 LARRY PRN Reason: Protocol Last Admin: 12/13/16 06:17 Dose: Not Given Nystatin (Nystop Topical Powder) 1 applic TOP TID [facility] Last Admin: 12/13/16 08:55 Dose: 1 pow Pantoprazole Sodium (Protonix Inj) 40 mg IVP DAILY [facility] Last Admin: 12/13/16 08:54 Dose: 40 mg - Labs Labs: 12/13/16 06:10 12/13/16 06:10 PT 13.2 Seconds (9.8-13.1) H 12/10/16 04:20 INR 1.3 (0.9-1.2) H 12/10/16 04:20 APTT 35.7 Seconds (25.6-37.1) 12/10/16 04:20 - Respiratory Exam Respiratory Exam: Rhonchi - Cardiovascular Exam Cardiovascular Exam: REGULAR RHYTHM - GI/Abdominal Exam GI & Abdominal Exam: Soft, Tenderness, Normal Bowel Sounds Assessment and Plan - Assessment and Plan (Free Text) Assessment: 71 yo male with multiple medical problems now isolated elevated alk phos isoenzymes pending AP trending down cont current plan
--- NOTE | 2016-12-13 12:39 | CP.PCM.PN ---
Subjective - Date & Time of Evaluation Date of Evaluation: 12/13/16 Time of Evaluation: 12:39 - Subjective Subjective: ID note- pt. seen and examined today in ICU. remains on the vent on 35% FIO2. awake and minimally responds to commands. low grade fever last night. picc line d/c yesterday as per nurse report. Objective - Vital Signs/Intake and Output Vital Signs (last 24 hours): Temp Pulse Resp BP Pulse Ox 98.9 F 92 H 18 114/62 100 12/13/16 08:00 12/13/16 08:00 12/13/16 08:00 12/13/16 11:22 12/13/16 08:00 Intake and Output: 12/13/16 12/13/16 06:59 18:59 Intake Total 1510 350 Output Total 300 Balance 1210 350 - Medications Medications: Current Medications Acetaminophen (Tylenol 650mg/20.3ml Solution Ud) 650 mg PO Q6 PRN PRN Reason: fever Last Admin: 12/12/16 21:18 Dose: 650 mg Albuterol/Ipratropium (Duoneb 3 Mg/0.5 Mg (3 Ml) Ud) 3 ml INH RQID [facility] Last Admin: 12/13/16 11:12 Dose: 3 ml Collagenase (Santyl) 1 applic TOP DAILY [facility] Last Admin: 12/13/16 11:25 Dose: 1 applic Furosemide (Lasix) 40 mg IV DAILY [facility] Last Admin: 12/13/16 11:22 Dose: 40 mg Voriconazole 300 mg/ Sodium (Chloride) 250 mls @ 125 mls/hr IVPB Q12 [facility] Last Admin: 12/12/16 21:24 Dose: 125 mls/hr Insulin Human Lispro (Humalog) 0 units SC Q6 [facility] PRN Reason: Protocol Last Admin: 12/13/16 06:17 Dose: Not Given Nystatin (Nystop Topical Powder) 1 applic TOP TID [facility] Last Admin: 12/13/16 08:55 Dose: 1 pow Pantoprazole Sodium (Protonix Inj) 40 mg IVP DAILY [facility] Last Admin: 12/13/16 08:54 Dose: 40 mg - Labs Labs: - Additional Findings Additional findings: - Constitutional Appears: Chronically Ill - ENT Exam Additional comments: ET tube in place has OGT as well - Neck Exam Additional comments: supple - Respiratory Exam Additional comments: intubated and on the vent - Cardiovascular Exam Cardiovascular Exam: RRR, +S1, +S2 - GI/Abdominal Exam GI & Abdominal Exam: Soft, Normal Bowel Sounds Additional comments: ND, NT - Extremities Exam Additional comments: dry b/l heel ulcers, no discharge - Neurological Exam Additional comments: intubated but awake Lines- left hadn peripheral IVL no cath rectal tube OG tube ET tube Laboratory Results - last 72 hr 12/10/16 12/10/16 12/10/16 16:02 18:30 22:10 WBC RBC Hgb Hct MCV MCH MCHC RDW Plt Count pCO2 pO2 HCO3 ABG pH ABG Total CO2 ABG O2 Saturation ABG O2 Content ABG Base Excess ABG Hemoglobin ABG Carboxyhemoglobin POC ABG HHb (Measured) ABG Methemoglobin ABG O2 Capacity Torres Test A-a O2 Difference Hgb O2 Saturation Vent Mode Mechanical Rate FiO2 Tidal Volume PEEP Sodium Potassium Chloride Carbon Dioxide Anion Gap BUN Creatinine Est GFR ( Amer) Est GFR (Non-Af Amer) POC Glucose (mg/dL) 114 H 127 H Random Glucose Calcium Total Bilirubin AST ALT Alkaline Phosphatase 725 H Total Protein Albumin Globulin Albumin/Globulin Ratio 12/11/16 12/11/16 12/11/16 05:19 05:23 06:00 WBC 6.6 RBC 2.54 L Hgb 7.5 L Hct 23.3 L MCV 91.8 MCH 29.7 MCHC 32.3 L RDW 16.9 H Plt Count 155 pCO2 33 L pO2 150 H HCO3 29.2 H ABG pH 7.54 H ABG Total CO2 29.2 H ABG O2 Saturation 99.8 H ABG O2 Content 11.2 L ABG Base Excess 5.4 H ABG Hemoglobin 7.9 L ABG Carboxyhemoglobin 0.8 POC ABG HHb (Measured) 0.2 ABG Methemoglobin 1.5 ABG O2 Capacity 11.2 L Torres Test Yes A-a O2 Difference 94.0 Hgb O2 Saturation 97.5 Vent Mode A/c Mechanical Rate 12 FiO2 40.0 Tidal Volume 450 PEEP 5 Sodium Potassium Chloride Carbon Dioxide Anion Gap BUN Creatinine Est GFR ( Amer) Est GFR (Non-Af Amer) POC Glucose (mg/dL) 106 Random Glucose Calcium Total Bilirubin AST ALT Alkaline Phosphatase Total Protein Albumin Globulin Albumin/Globulin Ratio 09/12/1912/11/16 12/11/16 06:00 10:58 15:59 WBC RBC Hgb Hct MCV MCH MCHC RDW Plt Count pCO2 pO2 HCO3 ABG pH ABG Total CO2 ABG O2 Saturation ABG O2 Content ABG Base Excess ABG Hemoglobin ABG Carboxyhemoglobin POC ABG HHb (Measured) ABG Methemoglobin ABG O2 Capacity Torres Test A-a O2 Difference Hgb O2 Saturation Vent Mode Mechanical Rate FiO2 Tidal Volume PEEP Sodium 141 Potassium 4.0 Chloride 110 H Carbon Dioxide 25 Anion Gap 10 BUN 30 H Creatinine 1.0 Est GFR ( Amer) > 60 Est GFR (Non-Af Amer) > 60 POC Glucose (mg/dL) 90 107 Random Glucose 90 Calcium 7.6 L Total Bilirubin 0.2 AST 20 ALT 26 Alkaline Phosphatase 760 H Total Protein 6.0 L Albumin 2.0 L Globulin 4.0 H Albumin/Globulin Ratio 0.5 L 12/11/16 12/12/16 12/12/16 23:20 05:30 05:39 WBC RBC Hgb Hct MCV MCH MCHC RDW Plt Count pCO2 32 L pO2 171 H HCO3 29.2 H ABG pH 7.55 H ABG Total CO2 29.0 H ABG O2 Saturation 99.9 H ABG O2 Content 11.6 L ABG Base Excess 5.4 H ABG Hemoglobin 8.2 L ABG Carboxyhemoglobin 0.8 POC ABG HHb (Measured) 0.1 ABG Methemoglobin 1.7 ABG O2 Capacity 11.6 L Torres Test Yes A-a O2 Difference 74.0 Hgb O2 Saturation 97.4 Vent Mode A/c Mechanical Rate 12 FiO2 40.0 Tidal Volume 450 PEEP 5 Sodium Potassium Chloride Carbon Dioxide Anion Gap BUN Creatinine Est GFR ( Amer) Est GFR (Non-Af Amer) POC Glucose (mg/dL) 146 H 134 H Random Glucose Calcium Total Bilirubin AST ALT Alkaline Phosphatase Total Protein Albumin Globulin Albumin/Globulin Ratio 12/12/16 12/12/16 12/12/16 07:30 08:15 11:31 WBC 7.2 RBC 2.61 L Hgb 8.0 L Hct 24.3 L MCV 93.2 MCH 30.8 MCHC 33.0 RDW 17.1 H Plt Count 207 pCO2 pO2 HCO3 ABG pH ABG Total CO2 ABG O2 Saturation ABG O2 Content ABG Base Excess ABG Hemoglobin ABG Carboxyhemoglobin POC ABG HHb (Measured) ABG Methemoglobin ABG O2 Capacity Torres Test A-a O2 Difference Hgb O2 Saturation Vent Mode Mechanical Rate FiO2 Tidal Volume PEEP Sodium 143 Potassium 4.0 Chloride 110 H Carbon Dioxide 25 Anion Gap 12 BUN 28 H Creatinine 0.9 Est GFR ( Amer) > 60 Est GFR (Non-Af Amer) > 60 POC Glucose (mg/dL) 118 H Random Glucose 113 H Calcium 7.6 L Total Bilirubin 0.2 AST 21 ALT 24 Alkaline Phosphatase 738 H Total Protein 6.2 L Albumin 2.1 L Globulin 4.2 H Albumin/Globulin Ratio 0.5 L 12/12/16 12/12/16 12/13/16 16:38 21:29 04:16 WBC RBC Hgb Hct MCV MCH MCHC RDW Plt Count pCO2 36 pO2 144 H HCO3 31.0 H ABG pH 7.54 H ABG Total CO2 31.9 H ABG O2 Saturation 99.9 H ABG O2 Content 11.4 L ABG Base Excess 7.7 H ABG Hemoglobin 8.1 L ABG Carboxyhemoglobin 1.0 POC ABG HHb (Measured) 0.1 ABG Methemoglobin 1.9 ABG O2 Capacity 11.4 L Torres Test Yes A-a O2 Difference 96.0 Hgb O2 Saturation 97.0 Vent Mode Prvc ac Mechanical Rate 12 FiO2 40.0 Tidal Volume 450 PEEP 5 Sodium Potassium Chloride Carbon Dioxide Anion Gap BUN Creatinine Est GFR ( Amer) Est GFR (Non-Af Amer) POC Glucose (mg/dL) 125 H 152 H Random Glucose Calcium Total Bilirubin AST ALT Alkaline Phosphatase Total Protein Albumin Globulin Albumin/Globulin Ratio 12/13/16 12/13/16 12/13/16 06:10 06:10 06:26 WBC 7.1 RBC 2.46 L Hgb 7.4 L Hct 22.7 L MCV 92.0 MCH 30.2 MCHC 32.8 L RDW 16.9 H Plt Count 227 pCO2 pO2 HCO3 ABG pH ABG Total CO2 ABG O2 Saturation ABG O2 Content ABG Base Excess ABG Hemoglobin ABG Carboxyhemoglobin POC ABG HHb (Measured) ABG Methemoglobin ABG O2 Capacity Torres Test A-a O2 Difference Hgb O2 Saturation Vent Mode Mechanical Rate FiO2 Tidal Volume PEEP Sodium 142 Potassium 3.9 Chloride 111 H Carbon Dioxide 27 Anion Gap 8 L BUN 28 H Creatinine 0.9 Est GFR ( Amer) > 60 Est GFR (Non-Af Amer) > 60 POC Glucose (mg/dL) 102 Random Glucose 93 Calcium 7.6 L Total Bilirubin AST ALT Alkaline Phosphatase Total Protein Albumin Globulin Albumin/Globulin Ratio 12/13/16 11:11 WBC RBC Hgb Hct MCV MCH MCHC RDW Plt Count pCO2 pO2 HCO3 ABG pH ABG Total CO2 ABG O2 Saturation ABG O2 Content ABG Base Excess ABG Hemoglobin ABG Carboxyhemoglobin POC ABG HHb (Measured) ABG Methemoglobin ABG O2 Capacity Torres Test A-a O2 Difference Hgb O2 Saturation Vent Mode Mechanical Rate FiO2 Tidal Volume PEEP Sodium Potassium Chloride Carbon Dioxide Anion Gap BUN Creatinine Est GFR ( Amer) Est GFR (Non-Af Amer) POC Glucose (mg/dL) 103 Random Glucose Calcium Total Bilirubin AST ALT Alkaline Phosphatase Total Protein Albumin Globulin Albumin/Globulin Ratio Microbiology 12/10/16 18:30 Blood-Venous Blood Culture - Preliminary NO GROWTH AFTER 48 HOURS 12/10/16 18:30 Blood-Venous Blood Culture - Preliminary NO GROWTH AFTER 48 HOURS 12/06/16 17:30 Blood-Venous Blood Culture - Final NO GROWTH AFTER 5 DAYS 12/06/16 17:30 Blood-Venous Gram Stain - Final TEST NOT PERFORMED 12/06/16 17:50 Blood-Venous Blood Culture - Final NO GROWTH AFTER 5 DAYS 12/06/16 17:50 Blood-Venous Gram Stain - Final TEST NOT PERFORMED 12/04/16 00:10 Blood-Venous Blood Culture - Final Saccharomyces Cerevisiae 12/04/16 00:10 Blood-Venous Gram Stain - Final 12/04/16 00:10 Blood-Venous S.aureus & Coag-Neg Staph PNA FISH - Final 12/04/16 00:10 Blood-Venous Blood Culture - Final Saccharomyces Cerevisiae 12/04/16 00:10 Blood-Venous Gram Stain - Final 12/04/16 14:00 Blood S.aureus & Coag-Neg Staph PNA FISH - Final 12/04/16 14:00 Blood Blood Culture - Final Saccharomyces Cerevisiae 12/04/16 14:00 Blood Gram Stain - Final 12/04/16 18:00 Blood-Thru Central Line S.aureus & Coag-Neg Staph PNA FISH - Final 12/04/16 18:00 Blood-Thru Central Line Blood Culture - Final Saccharomyces Cerevisiae 12/04/16 18:00 Blood-Thru Central Line Gram Stain - Final 12/04/16 16:50 Urine,No Urine Culture - Final Yeast Species 12/04/16 17:00 Trachasp Sputum Culture - Final NORMAL ORAL ROSEMARY 12/04/16 18:00 Naris MRSA Culture (Admit) - Final MRSA DETECTED 12/04/16 02:05 Urine,No Urine Culture - Final Yeast Species 11/26/16 20:01 Nose MRSA Culture (Admit) - Final MRSA NOT DETECTED 11/20/16 10:00 Blood-Venous Blood Culture - Final NO GROWTH AFTER 5 DAYS 11/20/16 10:00 Blood-Venous Gram Stain - Final TEST NOT PERFORMED 11/21/16 10:00 Trachasp Gram Stain - Final 11/21/16 10:00 Trachasp Sputum Culture - Final Klebsiella Pneumoniae Ssp Pneu 11/20/16 15:00 Nose MRSA Culture (Admit) - Final MRSA NOT DETECTED 11/20/16 01:57 Urine,No Urine Culture - Final No Growth (<1,000 CFU/ML) Accession No. : [id number] Patient Name / ID : GRACE ANTON / [id number] Exam Date : 12/13/2016 04:27:45 ( Approved ) Study Comment : Sex / Age : M / 71Y Creator : Rod Khan MD Dictator : Rod Khan MD Superintendent Transportation : [employer] Officer : Rod Khan MD Approver2 : Report Date : 12/13/2016 08:34:42 My Comment : HISTORY: re-evaluate COMPARISON: December 12, 2016. Multiple serial examinations preceding the most recent study : FINDINGS: LUNGS: Interval improvement right lower lobe infiltrate. PLEURA: No significant pleural effusion identified, no pneumothorax apparent. CARDIOVASCULAR: Underlying pulmonary vascular congestion. OSSEOUS STRUCTURES: No significant abnormalities. VISUALIZED UPPER ABDOMEN: Normal. OTHER FINDINGS: Stable position of support apparatus including endotracheal tube and nasogastric tube. IMPRESSION: Modest interval improvement in right lower lobe infiltrate. Assessment and Plan (1) Respiratory failure Status: Acute (2) Septic shock Status: Acute (3) GEORGINA (acute kidney injury) Status: Acute (4) Leukocytosis Status: Acute - Assessment and Plan (Free Text) Assessment: A/P- low grade temp normal wbc count blood cx from 12/04/2016- yeast from both central line and peripheral and urine cx- yeast (new) previous sputum cx from trach- Klebsiella brower sensitive + stool c.diff. repeat stool c.diff- negative tox and AG cxr-Right effusion and ? infiltrate as per report repeat bloodcx x 2 from 12/06/2016- negative x 2 repeat blood cx from 12/10/2016- negative x 2 A/P- pneumonia/resp distress fungemia is on antifungal medication c.diff - resolved fungurea Plan- continue with meropenem for HAP , day #7. completed 2 days of Micafungin for fungemia but once yeast was ID as sacharomyces was switched to voriconazole. day #5. picc line d/c. echo- no vegetations as per report. rise in ALp. advise to check abd ct or US . may need to hold the OG tube feeds till abd Ct is done. continue with voriconazole. advise to get optho for fundoscopic exam in light of the fungemia. if continues to have temp spikes may need JOHN for better image of the valves in light of fungemia to rule out IE. all above d/w Drop Forger Helper at length. ICU time 45 minutes.
--- NOTE | 2016-12-13 15:26 | CP.PCM.PN ---
Subjective - Date & Time of Evaluation Date of Evaluation: 12/13/16 Time of Evaluation: 10:45 - Subjective Subjective: F/U Respiratory Failure. Pt with eyes open to verbal stimuli, follows simple commands likely squeezing the hands, on ventilator PRVC/AC FIO2 35%. Objective - Vital Signs/Intake and Output Vital Signs (last 24 hours): Temp Pulse Resp BP Pulse Ox 99.8 F H 107 H 18 111/67 100 12/13/16 12:00 12/13/16 12:00 12/13/16 12:00 12/13/16 12:00 12/13/16 12:00 Intake and Output: 12/13/16 12/13/16 06:59 18:59 Intake Total 1510 350 Output Total 300 Balance 1210 350 - Medications Medications: Current Medications Acetaminophen (Tylenol 650mg/20.3ml Solution Ud) 650 mg PO Q6 PRN PRN Reason: fever Last Admin: 12/12/16 21:18 Dose: 650 mg Albuterol/Ipratropium (Duoneb 3 Mg/0.5 Mg (3 Ml) Ud) 3 ml INH RQID [facility] Last Admin: 12/13/16 11:12 Dose: 3 ml Collagenase (Santyl) 1 applic TOP DAILY [facility] Last Admin: 12/13/16 11:25 Dose: 1 applic Furosemide (Lasix) 40 mg IV DAILY [facility] Last Admin: 12/13/16 11:22 Dose: 40 mg Voriconazole 300 mg/ Sodium (Chloride) 250 mls @ 125 mls/hr IVPB Q12 [facility] Last Admin: 12/12/16 21:24 Dose: 125 mls/hr Meropenem 1 gm/ Sodium (Chloride) 100 mls @ 100 mls/hr IVPB Q12 [facility] Insulin Human Lispro (Humalog) 0 units SC Q6 [facility]ARRY PRN Reason: Protocol Last Admin: 12/13/16 06:17 Dose: Not Given Metronidazole (Flagyl) 500 mg PO Q8 [facility] Nystatin (Nystop Topical Powder) 1 applic TOP TID [facility] Last Admin: 12/13/16 08:55 Dose: 1 pow Pantoprazole Sodium (Protonix Inj) 40 mg IVP DAILY [facility] Last Admin: 12/13/16 08:54 Dose: 40 mg - Labs Labs: 12/13/16 06:10 12/13/16 06:10 PT 13.2 Seconds (9.8-13.1) H 12/10/16 04:20 INR 1.3 (0.9-1.2) H 12/10/16 04:20 APTT 35.7 Seconds (25.6-37.1) 12/10/16 04:20 - Constitutional Appears: Chronically Ill - Head Exam Head Exam: NORMAL INSPECTION - Eye Exam Eye Exam: PERRL - ENT Exam Additional comments: Intubated - Neck Exam Neck Exam: Normal Inspection - Respiratory Exam Respiratory Exam: Decreased Breath Sounds (b/l), Rhonchi (scattered) - Cardiovascular Exam Cardiovascular Exam: REGULAR RHYTHM - GI/Abdominal Exam GI & Abdominal Exam: Soft, Normal Bowel Sounds - Extremities Exam Additional comments: Edema upper extremities, L hip pressure ulcer stage 2 - Back Exam Back Exam: NORMAL INSPECTION - Neurological Exam Neurological Exam: Awake Additional comments: Response to tactile stimuli, generalized weakness. - Psychiatric Exam Additional comments: Calm - Skin Skin Exam: Warm Assessment and Plan (1) Acute hypercapnic respiratory failure Status: Acute (2) Klebsiella pneumonia Status: Acute (3) Dehydration Status: Acute (4) Septic shock Status: Acute (5) GEORGINA (acute kidney injury) Status: Acute (6) Type 2 diabetes mellitus with hyperglycemia Status: Chronic (7) HTN (hypertension) Status: Chronic (8) C. difficile colitis Status: Acute (9) Alkaline phosphatase elevation Status: Acute (10) Fungemia Status: Acute - Assessment and Plan (Free Text) Plan: Discussed with ID it security consultant, Dr. Masters, Pt has Fungemia Tx with antifungal medication. Continue attempt of weaning, planing to have tracheotomy next week. ICU Time: 38 min.
[2016-12-14 00:52] LABS: INTESTINAL ISOENZYME 0 % (1-24); MACROHEPATIC ISOENZYME 52 % (<=0); PLACENTAL ISOENZYME 0 % (<=0)
[2016-12-14] MEDS: Acetaminophen 650mg/20.3ml solution UD PO PRN (04:50)
[2016-12-14] MEDS: Insulin Lispro (humaLOG) 100 Units/ml Inj SC SCH ×4 (05:06→21:58)
[2016-12-14 05:32] LABS: HEMATOCRIT 23.2 % (35.0-51.0); MEAN CELL VOLUME 92.8 fl (80.0-94.0); MEAN CORPUSCULAR HEMOGLOBIN 30.1 pg (27.0-31.0); MEAN CORPUSCULAR HGB CONC 32.4 g/dL (33.0-37.0); RED CELL DISTRIBUTION WIDTH 16.7 % (11.5-14.5); WHITE BLOOD COUNT 6.8 K/uL (4.8-10.8)
[2016-12-14 05:40] LABS: BLOOD UREA NITROGEN 30 mg/dl (9-20); CALCIUM 7.5 mg/dL (8.4-10.2); CARBON DIOXIDE 26 mmol/L (22-30); CHLORIDE 109 mmol/L (98-107); GFR AFRICAN-AMERICAN > 60; GLUCOSE,RANDOM 102 mg/dL (75-110); POTASSIUM 3.9 MMOL/L (3.6-5.0); SODIUM 142 mmol/l (132-148)
[2016-12-14 07:18] LABS: ABG ALLEN TEST YES; ARTERIAL BLOOD GAS PH 7.58 (7.35-7.45); ARTERIAL BLOOD GAS PO2 112 mm/Hg (80-100)
[2016-12-14 07:19] LABS: ARTERIAL BLOOD GAS HCO3 32.3 mmol/L (21-28)
[2016-12-14 07:20] LABS: ARTERIAL BLOOD GAS O2 CAPACITY 10.9 mL/dL (16-24)
[2016-12-14 07:21] LABS: ARTERIAL BLOOD HGB O2 SAT 96.9 % (95.0-98.0); HHB -0.6 % (0.0-5.0); METHEMOGLOBIN 1.7 % (0.0-3.0)
[2016-12-14 07:23] LABS: ABG MECHANICAL RATE 10; ATERIAL BLOOD GAS PEEP 5
[2016-12-14] MEDS: Albuterol-Ipratrop 3 mg / 0.5 (3 ml) UD INH SCH ×4 (07:49→19:17)
--- NOTE | 2016-12-14 08:15 | RAD ---
HISTORY: intubated COMPARISON: PORTABLE CHEST 12/13/2016 FINDINGS: LUNGS: Endotracheal and nasogastric tubes do not appear significant changed in position. No active pulmonary disease. PLEURA: No significant pleural effusion identified, no pneumothorax apparent. Note, the left costophrenic sulcus is been excluded. CARDIOVASCULAR: Cardiac size remains normal however pulmonary vascular distention derangement persists with likely pulmonary venous congestion not significant changed in the interval. OSSEOUS STRUCTURES: No significant abnormalities. VISUALIZED UPPER ABDOMEN: Normal. OTHER FINDINGS: None. IMPRESSION: Stable pulmonary venous congestive pattern. No interval infiltrate or obvious pleural effusion however left costophrenic sulcus is been excluded. Follow-up chest radiography is advised.
--- NOTE | 2016-12-14 08:28 | CON ---
DATE: 12/10/2016 REASON FOR CONSULTATION: Elevated alkaline phosphatase. HISTORY OF PRESENT ILLNESS: This is a 71-year-old man, residential resident, demented at baseline, had a prolonged ICU stay for shortness of breath and hypoxia. Developed C. difficile and GI physician was called for elevation of alkaline phosphatase. The patient cannot give history. History is obtained via chart and staff. PAST MEDICAL HISTORY: Includes hypertension, AFib, hyperlipidemia, diabetes, , dementia. PAST SURGICAL HISTORY: Avascular necrosis of the right hip. . PHYSICAL EXAMINATION: GENERAL: Pleasant, elderly male, lying in bed, comfortable, in no apparent distress. VITAL SIGNS: Here in the hospital were grossly unremarkable. HEENT: Head is normocephalic and atraumatic. Eyes, pupils are equally round and reactive to light bilaterally. No conjunctival pallor or icterus. NECK: Supple. Normal range of motion. No lymphadenopathy appreciated. LUNGS: Coarse breath sounds bilaterally. HEART: S1 and S2. Regular rate and rhythm. No murmurs appreciated. ABDOMEN: Soft and nontender, some discomfort. Bowel sounds present. No rebound. No guarding. RECTAL: Deferred. EXTREMITIES: Pulses felt bilaterally. SKIN: Warm, dry and intact. LABORATORY DATA: All labs and relevant radiology have been reviewed. WBC is 8.3, hemoglobin is 8.5, hematocrit is 25.5, INR 1.3. The alkaline phosphatase at that point is 877, GTT is 70, lipase is normal. ASSESSMENT AND PLAN: This 71-year-old male with an isolated elevated alkaline phosphatase. From a gastrointestinal standpoint, recommend isoenzymes and ultrasound. Because clinically this is a , we will await for the ultrasound before we make any recommendations but after this point, we will treat for ongoing conditions. Thank you for the consultation. Bakari Hansen MD/ PhD
[2016-12-14] MEDS: Meropenem 1 GM in Sodium Chloride 0.9% 100 ML IVPB SCH ×2 (08:49→21:47)
--- NOTE | 2016-12-14 12:32 | CP.PCM.PN ---
Subjective - Date & Time of Evaluation Date of Evaluation: 12/14/16 Time of Evaluation: 12:32 - Subjective Subjective: ID Note- Pt. seen and examined today in ICU. remains intubated . lethargic today. Objective - Vital Signs/Intake and Output Vital Signs (last 24 hours): Temp Pulse Resp BP Pulse Ox 98.3 F 98 H 20 115/61 99 12/14/16 12:00 12/14/16 12:00 12/14/16 12:00 12/14/16 12:00 12/14/16 12:00 Intake and Output: 12/14/16 12/14/16 06:59 18:59 Intake Total 1560 100 Balance 1560 100 - Medications Medications: Current Medications Acetaminophen (Tylenol 650mg/20.3ml Solution Ud) 650 mg PO Q6 PRN PRN Reason: fever Last Admin: 12/14/16 04:50 Dose: 650 mg Albuterol/Ipratropium (Duoneb 3 Mg/0.5 Mg (3 Ml) Ud) 3 ml INH RQID [facility] Last Admin: 12/14/16 11:24 Dose: 3 ml Collagenase (Santyl) 1 applic TOP DAILY [facility] Last Admin: 12/13/16 11:25 Dose: 1 applic Furosemide (Lasix) 40 mg IV DAILY [facility] Last Admin: 12/14/16 08:48 Dose: 40 mg Voriconazole 300 mg/ Sodium (Chloride) 250 mls @ 125 mls/hr IVPB Q12 [facility] Last Admin: 12/13/16 20:33 Dose: 125 mls/hr Meropenem 1 gm/ Sodium (Chloride) 100 mls @ 100 mls/hr IVPB Q12 [facility] Last Admin: 12/14/16 08:49 Dose: 100 mls/hr Insulin Human Lispro (Humalog) 0 units SC Q6 [facility] PRN Reason: Protocol Last Admin: 12/14/16 05:06 Dose: Not Given Metronidazole (Flagyl) 500 mg PO Q8 [facility] Last Admin: 12/14/16 00:50 Dose: 500 mg Nystatin (Nystop Topical Powder) 1 applic TOP TID [facility] Last Admin: 12/14/16 08:50 Dose: 1 pow Pantoprazole Sodium (Protonix Inj) 40 mg IVP DAILY [facility] Last Admin: 12/14/16 08:50 Dose: 40 mg - Labs Labs: - Additional Findings Additional findings: - Constitutional Appears: Chronically Ill - ENT Exam Additional comments: ET tube in place has OGT as well - Neck Exam Additional comments: supple - Respiratory Exam Additional comments: intubated and on the vent - Cardiovascular Exam Cardiovascular Exam: RRR, +S1, +S2 - GI/Abdominal Exam GI & Abdominal Exam: Soft, Normal Bowel Sounds Additional comments: ND, NT - Extremities Exam Additional comments: dry b/l heel ulcers, no discharge - Neurological Exam Additional comments: intubated and more lethargic today Laboratory Results - last 72 hr 12/10/16 12/11/16 12/11/16 18:30 15:59 23:20 WBC RBC Hgb Hct MCV MCH MCHC RDW Plt Count pCO2 pO2 HCO3 ABG pH ABG Total CO2 ABG O2 Saturation ABG O2 Content ABG Base Excess ABG Hemoglobin ABG Carboxyhemoglobin POC ABG HHb (Measured) ABG Methemoglobin ABG O2 Capacity Torres Test A-a O2 Difference Hgb O2 Saturation Vent Mode Mechanical Rate FiO2 Tidal Volume PEEP Blood Gas Comments Sodium Potassium Chloride Carbon Dioxide Anion Gap BUN Creatinine Est GFR ( Amer) Est GFR (Non-Af Amer) POC Glucose (mg/dL) 107 146 H Random Glucose Calcium Total Bilirubin AST ALT Alkaline Phosphatase 725 H Alk Phos Iso-Intestine 0 L Alk Phos Iso-Bone 14 L Alk Phos Iso-Liver 34 Alk Phos Iso-Placenta 0 Alk Phos Iso-Renal 52 H Total Protein Albumin Globulin Albumin/Globulin Ratio Blood Type Antibody Screen Crossmatch BBK History Checked 12/12/16 12/12/16 12/12/16 05:30 05:39 07:30 WBC 7.2 RBC 2.61 L Hgb 8.0 L Hct 24.3 L MCV 93.2 MCH 30.8 MCHC 33.0 RDW 17.1 H Plt Count 207 pCO2 32 L pO2 171 H HCO3 29.2 H ABG pH 7.55 H ABG Total CO2 29.0 H ABG O2 Saturation 99.9 H ABG O2 Content 11.6 L ABG Base Excess 5.4 H ABG Hemoglobin 8.2 L ABG Carboxyhemoglobin 0.8 POC ABG HHb (Measured) 0.1 ABG Methemoglobin 1.7 ABG O2 Capacity 11.6 L Torres Test Yes A-a O2 Difference 74.0 Hgb O2 Saturation 97.4 Vent Mode A/c Mechanical Rate 12 FiO2 40.0 Tidal Volume 450 PEEP 5 Blood Gas Comments Sodium Potassium Chloride Carbon Dioxide Anion Gap BUN Creatinine Est GFR ( Amer) Est GFR (Non-Af Amer) POC Glucose (mg/dL) 134 H Random Glucose Calcium Total Bilirubin AST ALT Alkaline Phosphatase Alk Phos Iso-Intestine Alk Phos Iso-Bone Alk Phos Iso-Liver Alk Phos Iso-Placenta Alk Phos Iso-Renal Total Protein Albumin Globulin Albumin/Globulin Ratio Blood Type Antibody Screen Crossmatch BBK History Checked 12/12/16 12/12/16 12/12/16 08:15 11:31 16:38 WBC RBC Hgb Hct MCV MCH MCHC RDW Plt Count pCO2 pO2 HCO3 ABG pH ABG Total CO2 ABG O2 Saturation ABG O2 Content ABG Base Excess ABG Hemoglobin ABG Carboxyhemoglobin POC ABG HHb (Measured) ABG Methemoglobin ABG O2 Capacity Torres Test A-a O2 Difference Hgb O2 Saturation Vent Mode Mechanical Rate FiO2 Tidal Volume PEEP Blood Gas Comments Sodium 143 Potassium 4.0 Chloride 110 H Carbon Dioxide 25 Anion Gap 12 BUN 28 H Creatinine 0.9 Est GFR ( Amer) > 60 Est GFR (Non-Af Amer) > 60 POC Glucose (mg/dL) 118 H 125 H Random Glucose 113 H Calcium 7.6 L Total Bilirubin 0.2 AST 21 ALT 24 Alkaline Phosphatase 738 H Alk Phos Iso-Intestine Alk Phos Iso-Bone Alk Phos Iso-Liver Alk Phos Iso-Placenta Alk Phos Iso-Renal Total Protein 6.2 L Albumin 2.1 L Globulin 4.2 H Albumin/Globulin Ratio 0.5 L Blood Type Antibody Screen Crossmatch BBK History Checked 12/12/16 12/13/16 12/13/16 21:29 04:16 06:10 WBC 7.1 RBC 2.46 L Hgb 7.4 L Hct 22.7 L MCV 92.0 MCH 30.2 MCHC 32.8 L RDW 16.9 H Plt Count 227 pCO2 36 pO2 144 H HCO3 31.0 H ABG pH 7.54 H ABG Total CO2 31.9 H ABG O2 Saturation 99.9 H ABG O2 Content 11.4 L ABG Base Excess 7.7 H ABG Hemoglobin 8.1 L ABG Carboxyhemoglobin 1.0 POC ABG HHb (Measured) 0.1 ABG Methemoglobin 1.9 ABG O2 Capacity 11.4 L Torres Test Yes A-a O2 Difference 96.0 Hgb O2 Saturation 97.0 Vent Mode Prvc ac Mechanical Rate 12 FiO2 40.0 Tidal Volume 450 PEEP 5 Blood Gas Comments Sodium Potassium Chloride Carbon Dioxide Anion Gap BUN Creatinine Est GFR ( Amer) Est GFR (Non-Af Amer) POC Glucose (mg/dL) 152 H Random Glucose Calcium Total Bilirubin AST ALT Alkaline Phosphatase Alk Phos Iso-Intestine Alk Phos Iso-Bone Alk Phos Iso-Liver Alk Phos Iso-Placenta Alk Phos Iso-Renal Total Protein Albumin Globulin Albumin/Globulin Ratio Blood Type Antibody Screen Crossmatch BBK History Checked 12/13/16 12/13/16 12/13/16 06:10 06:26 11:11 WBC RBC Hgb Hct MCV MCH MCHC RDW Plt Count pCO2 pO2 HCO3 ABG pH ABG Total CO2 ABG O2 Saturation ABG O2 Content ABG Base Excess ABG Hemoglobin ABG Carboxyhemoglobin POC ABG HHb (Measured) ABG Methemoglobin ABG O2 Capacity Torres Test A-a O2 Difference Hgb O2 Saturation Vent Mode Mechanical Rate FiO2 Tidal Volume PEEP Blood Gas Comments Sodium 142 Potassium 3.9 Chloride 111 H Carbon Dioxide 27 Anion Gap 8 L BUN 28 H Creatinine 0.9 Est GFR ( Amer) > 60 Est GFR (Non-Af Amer) > 60 POC Glucose (mg/dL) 102 103 Random Glucose 93 Calcium 7.6 L Total Bilirubin AST ALT Alkaline Phosphatase Alk Phos Iso-Intestine Alk Phos Iso-Bone Alk Phos Iso-Liver Alk Phos Iso-Placenta Alk Phos Iso-Renal Total Protein Albumin Globulin Albumin/Globulin Ratio Blood Type Antibody Screen Crossmatch BBK History Checked 12/13/16 12/13/16 12/14/16 16:18 21:14 04:35 WBC 6.8 RBC 2.50 L Hgb 7.5 L Hct 23.2 L MCV 92.8 MCH 30.1 MCHC 32.4 L RDW 16.7 H Plt Count 243 pCO2 pO2 HCO3 ABG pH ABG Total CO2 ABG O2 Saturation ABG O2 Content ABG Base Excess ABG Hemoglobin ABG Carboxyhemoglobin POC ABG HHb (Measured) ABG Methemoglobin ABG O2 Capacity Torres Test A-a O2 Difference Hgb O2 Saturation Vent Mode Mechanical Rate FiO2 Tidal Volume PEEP Blood Gas Comments Sodium Potassium Chloride Carbon Dioxide Anion Gap BUN Creatinine Est GFR ( Amer) Est GFR (Non-Af Amer) POC Glucose (mg/dL) 153 H 115 H Random Glucose Calcium Total Bilirubin AST ALT Alkaline Phosphatase Alk Phos Iso-Intestine Alk Phos Iso-Bone Alk Phos Iso-Liver Alk Phos Iso-Placenta Alk Phos Iso-Renal Total Protein Albumin Globulin Albumin/Globulin Ratio Blood Type Antibody Screen Crossmatch BBK History Checked 12/14/16 12/14/16 12/14/16 04:35 04:50 05:05 WBC RBC Hgb Hct MCV MCH MCHC RDW Plt Count pCO2 34 L pO2 112 H HCO3 32.3 H ABG pH 7.58 H ABG Total CO2 32.9 H ABG O2 Saturation 100.6 H ABG O2 Content 11.0 L ABG Base Excess 9.4 H ABG Hemoglobin 7.9 L ABG Carboxyhemoglobin 2.0 H POC ABG HHb (Measured) -0.6 L ABG Methemoglobin 1.7 ABG O2 Capacity 10.9 L Torres Test Yes A-a O2 Difference 95.0 Hgb O2 Saturation 96.9 Vent Mode prvc/ac Mechanical Rate 10 FiO2 35 Tidal Volume 450 PEEP 5 Blood Gas Comments abg was done by ravi Sodium 142 Potassium 3.9 Chloride 109 H Carbon Dioxide 26 Anion Gap 11 BUN 30 H Creatinine 0.8 Est GFR ( Amer) > 60 Est GFR (Non-Af Amer) > 60 POC Glucose (mg/dL) 104 Random Glucose 102 Calcium 7.5 L Total Bilirubin AST ALT Alkaline Phosphatase Alk Phos Iso-Intestine Alk Phos Iso-Bone Alk Phos Iso-Liver Alk Phos Iso-Placenta Alk Phos Iso-Renal Total Protein Albumin Globulin Albumin/Globulin Ratio Blood Type Antibody Screen Crossmatch BBK History Checked 12/14/16 12/14/16 10:08 10:20 WBC RBC Hgb Hct MCV MCH MCHC RDW Plt Count pCO2 pO2 HCO3 ABG pH ABG Total CO2 ABG O2 Saturation ABG O2 Content ABG Base Excess ABG Hemoglobin ABG Carboxyhemoglobin POC ABG HHb (Measured) ABG Methemoglobin ABG O2 Capacity Torres Test A-a O2 Difference Hgb O2 Saturation Vent Mode Mechanical Rate FiO2 Tidal Volume PEEP Blood Gas Comments Sodium Potassium Chloride Carbon Dioxide Anion Gap BUN Creatinine Est GFR ( Amer) Est GFR (Non-Af Amer) POC Glucose (mg/dL) 130 H Random Glucose Calcium Total Bilirubin AST ALT Alkaline Phosphatase Alk Phos Iso-Intestine Alk Phos Iso-Bone Alk Phos Iso-Liver Alk Phos Iso-Placenta Alk Phos Iso-Renal Total Protein Albumin Globulin Albumin/Globulin Ratio Blood Type A POSITIVE Antibody Screen Negative Crossmatch See Detail BBK History Checked Patient has bt Microbiology 12/10/16 18:30 Blood-Venous Blood Culture - Preliminary NO GROWTH AFTER 3 DAYS 12/10/16 18:30 Blood-Venous Blood Culture - Preliminary NO GROWTH AFTER 3 DAYS 12/06/16 17:30 Blood-Venous Blood Culture - Final NO GROWTH AFTER 5 DAYS 12/06/16 17:30 Blood-Venous Gram Stain - Final TEST NOT PERFORMED 12/06/16 17:50 Blood-Venous Blood Culture - Final NO GROWTH AFTER 5 DAYS 12/06/16 17:50 Blood-Venous Gram Stain - Final TEST NOT PERFORMED 12/04/16 00:10 Blood-Venous Blood Culture - Final Saccharomyces Cerevisiae 12/04/16 00:10 Blood-Venous Gram Stain - Final 12/04/16 00:10 Blood-Venous S.aureus & Coag-Neg Staph PNA FISH - Final 12/04/16 00:10 Blood-Venous Blood Culture - Final Saccharomyces Cerevisiae 12/04/16 00:10 Blood-Venous Gram Stain - Final 12/04/16 14:00 Blood S.aureus & Coag-Neg Staph PNA FISH - Final 12/04/16 14:00 Blood Blood Culture - Final Saccharomyces Cerevisiae 12/04/16 14:00 Blood Gram Stain - Final 12/04/16 18:00 Blood-Thru Central Line S.aureus & Coag-Neg Staph PNA FISH - Final 12/04/16 18:00 Blood-Thru Central Line Blood Culture - Final Saccharomyces Cerevisiae 12/04/16 18:00 Blood-Thru Central Line Gram Stain - Final 12/04/16 16:50 Urine,Triplett Urine Culture - Final Yeast Species 12/04/16 17:00 Trachasp Sputum Culture - Final NORMAL ORAL ROSEMARY 12/04/16 18:00 Naris MRSA Culture (Admit) - Final MRSA DETECTED 12/04/16 02:05 Urine,Triplett Urine Culture - Final Yeast Species 11/26/16 20:01 Nose MRSA Culture (Admit) - Final MRSA NOT DETECTED 11/20/16 10:00 Blood-Venous Blood Culture - Final NO GROWTH AFTER 5 DAYS 11/20/16 10:00 Blood-Venous Gram Stain - Final TEST NOT PERFORMED 11/21/16 10:00 Trachasp Gram Stain - Final 11/21/16 10:00 Trachasp Sputum Culture - Final Klebsiella Pneumoniae Ssp Pneu 11/20/16 15:00 Nose MRSA Culture (Admit) - Final MRSA NOT DETECTED 11/20/16 01:57 Urine,Triplett Urine Culture - Final No Growth (<1,000 CFU/ML) Assessment and Plan (1) Respiratory failure Status: Acute (2) Septic shock Status: Acute (3) GEORGINA (acute kidney injury) Status: Acute (4) Leukocytosis Status: Acute - Assessment and Plan (Free Text) Assessment: A/P- low grade temp again today normal wbc count blood cx from 12/04/2016- yeast from both central line and peripheral and urine cx- yeast (new) previous sputum cx from trach- Klebsiella brower sensitive + stool c.diff. repeat stool c.diff- negative tox and AG cxr-Right effusion and ? infiltrate as per report repeat bloodcx x 2 from 12/06/2016- negative x 2 repeat blood cx from 12/10/2016- negative x 2 pneumonia/resp distress fungemia is on antifungal medication c.diff - resolved fungurea Plan- continue with meropenem for HAP , day #8. completed 2 days of Micafungin for fungemia but once yeast was ID as sacharomyces was switched to voriconazole. day #6. picc line d/c. TTE- no vegetations as per report. rise in ALP, await isoenzymes. advise to check abd ct or US . continue with voriconazole. advise to get optho for fundoscopic exam in light of the fungemia. if continues to have temp spikes may need JOHN for better image of the valves in light of fungemia to rule out IE. ICU time 45 minutes.
--- NOTE | 2016-12-14 12:52 | CP.PCM.PN ---
Subjective - Date & Time of Evaluation Date of Evaluation: 12/14/16 Time of Evaluation: 12:50 - Subjective Subjective: no overnight events Objective - Vital Signs/Intake and Output Vital Signs (last 24 hours): Temp Pulse Resp BP Pulse Ox 98.3 F 98 H 20 115/61 99 12/14/16 12:00 12/14/16 12:00 12/14/16 12:00 12/14/16 12:00 12/14/16 12:00 Intake and Output: 12/14/16 12/14/16 06:59 18:59 Intake Total 1560 100 Balance 1560 100 - Medications Medications: Current Medications Acetaminophen (Tylenol 650mg/20.3ml Solution Ud) 650 mg PO Q6 PRN PRN Reason: fever Last Admin: 12/14/16 04:50 Dose: 650 mg Albuterol/Ipratropium (Duoneb 3 Mg/0.5 Mg (3 Ml) Ud) 3 ml INH RQID [facility] Last Admin: 12/14/16 11:24 Dose: 3 ml Collagenase (Santyl) 1 applic TOP DAILY [facility] Last Admin: 12/13/16 11:25 Dose: 1 applic Furosemide (Lasix) 40 mg IV DAILY [facility] Last Admin: 12/14/16 08:48 Dose: 40 mg Voriconazole 300 mg/ Sodium (Chloride) 250 mls @ 125 mls/hr IVPB Q12 [facility] Last Admin: 12/13/16 20:33 Dose: 125 mls/hr Meropenem 1 gm/ Sodium (Chloride) 100 mls @ 100 mls/hr IVPB Q12 [facility] Last Admin: 12/14/16 08:49 Dose: 100 mls/hr Insulin Human Lispro (Humalog) 0 units SC Q6 [facility] PRN Reason: Protocol Last Admin: 12/14/16 05:06 Dose: Not Given Metronidazole (Flagyl) 500 mg PO Q8 [facility] Last Admin: 12/14/16 00:50 Dose: 500 mg Nystatin (Nystop Topical Powder) 1 applic TOP TID [facility] Last Admin: 12/14/16 08:50 Dose: 1 pow Pantoprazole Sodium (Protonix Inj) 40 mg IVP DAILY [facility] Last Admin: 12/14/16 08:50 Dose: 40 mg - Labs Labs: 12/14/16 04:35 12/14/16 04:35 PT 13.2 Seconds (9.8-13.1) H 12/10/16 04:20 INR 1.3 (0.9-1.2) H 12/10/16 04:20 APTT 35.7 Seconds (25.6-37.1) 12/10/16 04:20 - Cardiovascular Exam Cardiovascular Exam: REGULAR RHYTHM - GI/Abdominal Exam GI & Abdominal Exam: Tenderness, Normal Bowel Sounds Assessment and Plan - Assessment and Plan (Free Text) Assessment: 71 yo male with multiple medical problems alk phos likely secondary to renal (as per isoenzyme analysis) goals of care
--- NOTE | 2016-12-14 13:01 | CP.CCUPN ---
CCU Subjective - Physician Review Subjective (Free Text): 12/08/16 16:13 The patient was Seen/interviewed and examined by me at the bedside during ICU round, Medical records reviewed and Management issues were discussed and formulated with the house staff. Off sedations Does not follows some commands, only open eyes Comfortable, unlabored breathing Afebrile, S/p PICC line and TLC removed A Fib/A Flutter on the monitor Not tolerating CPAP trial Tolerating OG tube feeding Moderate amount of white Resp secretions Seen by wound care for sacral wound and left hip area redness.Discussed with the son the diagnosis, treatment plans and alternatives, The sun is coming today to further discuss GOC, Trach/Peg 12/14/16 18:30 Triplett was changed today Pt on IV Meropenem and Flagyl Micafungin was switched to voriconazole for for fungemia with sacharomyces. CCU Objective - Vital Signs / Intake & Output Vital Signs (Last 4 hours): Vital Signs Temp Pulse Resp BP Pulse Ox 12/14/16 12:00 98.3 F 98 H 20 115/61 99 12/14/16 10:00 88 100 H 118/61 17 L Intake and Output (Last 8hrs): Intake & Output 12/13/16 12/14/16 12/14/16 22:59 06:59 14:59 Intake Total 1900 820 100 Output Total 1800 Balance 100 820 100 Intake: Intake, Piggyback 350 100 Oral 240 160 Tube Feeding 1110 560 Free Water Flush 200 100 Output: Urine 1800 Urethral (Triplett) 1800 - Physical Exam Head: Positive for: Normocephalic Pupils: Positive for: PERRL Extroacular Muscles: Positive for: EOMI. Negative for: Gaze Palsy Conjunctiva: Negative for: Injected, Icteric Mouth: Positive for: Moist Mucous Membranes Neck: Positive for: Normal Range of Motion. Negative for: Meningeal Signs, JVD , Lymphadenopathy Respiratory/Chest: Positive for: Decreased Breath Sounds. Negative for: Accessory Muscle Use, Wheezes, Rhonchi Cardiovascular: Positive for: Regular Rate and Rhythm. Negative for: Murmurs, Rub Abdomen: Positive for: Normal Bowel Sounds. Negative for: Tenderness, Distention Upper Extremity: Positive for: Edema (marked edema / anasarca bilat) Lower Extremity: Positive for: Edema, Other (osteomyelitis of right foot). Negative for: CALF TENDERNESS, Cyanosis Neurological: Positive for: Motor Func Grossly Intact, Norm Deep Tendon Reflexes Skin: Positive for: Warm. Negative for: Rashes Psychiatric: Negative for: Alert, Lethargic - Medications Active Medications: Active Medications Generic Name Dose Route Start Last Admin Trade Name Freq PRN Reason Stop Dose Admin Acetaminophen 650 mg 12/12/16 21:03 12/14/16 04:50 Tylenol 650mg/20.3ml Solution Ud PO 650 mg Q6 PRN Administration fever Albuterol/Ipratropium 3 ml 12/09/16 12:00 12/14/16 11:24 Duoneb 3 Mg/0.5 Mg (3 Ml) Ud INH 3 ml RQID LARRY Administration Collagenase 1 applic 12/08/16 16:15 12/13/16 11:25 Santyl TOP 1 applic DAILY LARRY Administration Furosemide 40 mg 12/13/16 09:00 12/14/16 08:48 Lasix IV 40 mg DAILY LARRY Administration Voriconazole 300 mg/ Sodium 250 mls @ 125 mls/hr 12/10/16 09:00 12/13/16 20: 33 Chloride IVPB 125 mls/hr Q12 LARRY Administration Meropenem 1 gm/ Sodium 100 mls @ 100 mls/hr 12/13/16 21:00 12/14/16 08:49 Chloride IVPB 100 mls/hr Q12 LARRY Administration Insulin Human Lispro 0 units 12/06/16 22:00 12/14/16 05:06 Humalog SC Not Given Q6 LARRY Protocol Metronidazole 500 mg 12/13/16 17:00 12/14/16 00:50 Flagyl PO 500 mg Q8 LARRY Administration Nystatin 1 applic 12/08/16 17:00 12/14/16 08:50 Nystop Topical Powder TOP 1 pow TID LARRY Administration Pantoprazole Sodium 40 mg 12/09/16 09:00 12/14/16 08:50 Protonix Inj IVP 40 mg DAILY LARRY Administration - Patient Studies Lab Studies: Microbiology Studies 12/10/16 18:30 Blood Culture - Preliminary Blood-Venous NO GROWTH AFTER 3 DAYS 12/10/16 18:30 Blood Culture - Preliminary Blood-Venous NO GROWTH AFTER 3 DAYS Lab Studies 12/14/16 12/14/16 12/14/16 Range/Units 10:20 10:08 05:05 WBC (4.8-10.8) K/uL RBC (4.40-5.90) Mil/uL Hgb (12.0-18.0) g/dL Hct (35.0-51.0) % MCV (80.0-94.0) fl MCH (27.0-31.0) pg MCHC (33.0-37.0) g/dL RDW (11.5-14.5) % Plt Count (130-400) K/uL pCO2 (35-45) mm/Hg pO2 (80-100) mm/Hg HCO3 (21-28) mmol/L ABG pH (7.35-7.45) ABG Total CO2 (22-28) mmol/L ABG O2 Saturation (95-98) % ABG O2 Content (15-23) ML/dL ABG Base Excess (-2.0-3.0) mmol/L ABG Hemoglobin (11.7-17.4) g/dL ABG Carboxyhemoglobin (0.5-1.5) % POC ABG HHb (Measured) (0.0-5.0) % ABG Methemoglobin (0.0-3.0) % ABG O2 Capacity (16-24) mL/dL Torres Test A-a O2 Difference mm/Hg Hgb O2 Saturation (95.0-98.0) % Vent Mode Mechanical Rate FiO2 % Tidal Volume PEEP Blood Gas Comments Sodium (132-148) mmol/l Potassium (3.6-5.0) MMOL/L Chloride (98-107) mmol/L Carbon Dioxide (22-30) mmol/L Anion Gap (10-20) BUN (9-20) mg/dl Creatinine (0.8-1.5) mg/dL Est GFR ( Amer) Est GFR (Non-Af Amer) POC Glucose (mg/dL) 130 H 104 (65-110) mg/dL Random Glucose (75-110) mg/dL Calcium (8.4-10.2) mg/dL Alk Phos Iso-Intestine (1-24) % Alk Phos Iso-Bone (28-66) % Alk Phos Iso-Liver (25-69) % Alk Phos Iso-Placenta (<=0) % Alk Phos Iso-Renal (<=0) % Blood Type A POSITIVE Antibody Screen Negative Crossmatch See Detail BBK History Checked Patient has bt 12/14/16 12/14/16 12/14/16 Range/Units 04:50 04:35 04:35 WBC 6.8 (4.8-10.8) K/uL RBC 2.50 L (4.40-5.90) Mil/uL Hgb 7.5 L (12.0-18.0) g/dL Hct 23.2 L (35.0-51.0) % MCV 92.8 (80.0-94.0) fl MCH 30.1 (27.0-31.0) pg MCHC 32.4 L (33.0-37.0) g/dL RDW 16.7 H (11.5-14.5) % Plt Count 243 (130-400) K/uL pCO2 34 L (35-45) mm/Hg pO2 112 H (80-100) mm/Hg HCO3 32.3 H (21-28) mmol/L ABG pH 7.58 H (7.35-7.45) ABG Total CO2 32.9 H (22-28) mmol/L ABG O2 Saturation 100.6 H (95-98) % ABG O2 Content 11.0 L (15-23) ML/dL ABG Base Excess 9.4 H (-2.0-3.0) mmol/L ABG Hemoglobin 7.9 L (11.7-17.4) g/dL ABG Carboxyhemoglobin 2.0 H (0.5-1.5) % POC ABG HHb (Measured) -0.6 L (0.0-5.0) % ABG Methemoglobin 1.7 (0.0-3.0) % ABG O2 Capacity 10.9 L (16-24) mL/dL Torres Test Yes A-a O2 Difference 95.0 mm/Hg Hgb O2 Saturation 96.9 (95.0-98.0) % Vent Mode prvc/ac Mechanical Rate 10 FiO2 35 % Tidal Volume 450 PEEP 5 Blood Gas Comments abg was done by ravi Sodium 142 (132-148) mmol/l Potassium 3.9 (3.6-5.0) MMOL/L Chloride 109 H (98-107) mmol/L Carbon Dioxide 26 (22-30) mmol/L Anion Gap 11 (10-20) BUN 30 H (9-20) mg/dl Creatinine 0.8 (0.8-1.5) mg/dL Est GFR ( Amer) > 60 Est GFR (Non-Af Amer) > 60 POC Glucose (mg/dL) (65-110) mg/dL Random Glucose 102 (75-110) mg/dL Calcium 7.5 L (8.4-10.2) mg/dL Alk Phos Iso-Intestine (1-24) % Alk Phos Iso-Bone (28-66) % Alk Phos Iso-Liver (25-69) % Alk Phos Iso-Placenta (<=0) % Alk Phos Iso-Renal (<=0) % Blood Type Antibody Screen Crossmatch BBK History Checked 12/13/16 12/13/16 12/10/16 Range/Units 21:14 16:18 18:30 WBC (4.8-10.8) K/uL RBC (4.40-5.90) Mil/uL Hgb (12.0-18.0) g/dL Hct (35.0-51.0) % MCV (80.0-94.0) fl MCH (27.0-31.0) pg MCHC (33.0-37.0) g/dL RDW (11.5-14.5) % Plt Count (130-400) K/uL pCO2 (35-45) mm/Hg pO2 (80-100) mm/Hg HCO3 (21-28) mmol/L ABG pH (7.35-7.45) ABG Total CO2 (22-28) mmol/L ABG O2 Saturation (95-98) % ABG O2 Content (15-23) ML/dL ABG Base Excess (-2.0-3.0) mmol/L ABG Hemoglobin (11.7-17.4) g/dL ABG Carboxyhemoglobin (0.5-1.5) % POC ABG HHb (Measured) (0.0-5.0) % ABG Methemoglobin (0.0-3.0) % ABG O2 Capacity (16-24) mL/dL Torres Test A-a O2 Difference mm/Hg Hgb O2 Saturation (95.0-98.0) % Vent Mode Mechanical Rate FiO2 % Tidal Volume PEEP Blood Gas Comments Sodium (132-148) mmol/l Potassium (3.6-5.0) MMOL/L Chloride (98-107) mmol/L Carbon Dioxide (22-30) mmol/L Anion Gap (10-20) BUN (9-20) mg/dl Creatinine (0.8-1.5) mg/dL Est GFR ( Amer) Est GFR (Non-Af Amer) POC Glucose (mg/dL) 115 H 153 H (65-110) mg/dL Random Glucose (75-110) mg/dL Calcium (8.4-10.2) mg/dL Alk Phos Iso-Intestine 0 L (1-24) % Alk Phos Iso-Bone 14 L (28-66) % Alk Phos Iso-Liver 34 (25-69) % Alk Phos Iso-Placenta 0 (<=0) % Alk Phos Iso-Renal 52 H (<=0) % Blood Type Antibody Screen Crossmatch BBK History Checked Laboratory Results - last 24 hr 12/10/16 12/13/16 12/13/16 18:30 16:18 21:14 WBC RBC Hgb Hct MCV MCH MCHC RDW Plt Count pCO2 pO2 HCO3 ABG pH ABG Total CO2 ABG O2 Saturation ABG O2 Content ABG Base Excess ABG Hemoglobin ABG Carboxyhemoglobin POC ABG HHb (Measured) ABG Methemoglobin ABG O2 Capacity Otrres Test A-a O2 Difference Hgb O2 Saturation Vent Mode Mechanical Rate FiO2 Tidal Volume PEEP Blood Gas Comments Sodium Potassium Chloride Carbon Dioxide Anion Gap BUN Creatinine Est GFR ( Amer) Est GFR (Non-Af Amer) POC Glucose (mg/dL) 153 H 115 H Random Glucose Calcium Alk Phos Iso-Intestine 0 L Alk Phos Iso-Bone 14 L Alk Phos Iso-Liver 34 Alk Phos Iso-Placenta 0 Alk Phos Iso-Renal 52 H Blood Type Antibody Screen Crossmatch BBK History Checked 12/14/16 12/14/16 12/14/16 04:35 04:35 04:50 WBC 6.8 RBC 2.50 L Hgb 7.5 L Hct 23.2 L MCV 92.8 MCH 30.1 MCHC 32.4 L RDW 16.7 H Plt Count 243 pCO2 34 L pO2 112 H HCO3 32.3 H ABG pH 7.58 H ABG Total CO2 32.9 H ABG O2 Saturation 100.6 H ABG O2 Content 11.0 L ABG Base Excess 9.4 H ABG Hemoglobin 7.9 L ABG Carboxyhemoglobin 2.0 H POC ABG HHb (Measured) -0.6 L ABG Methemoglobin 1.7 ABG O2 Capacity 10.9 L Torres Test Yes A-a O2 Difference 95.0 Hgb O2 Saturation 96.9 Vent Mode prvc/ac Mechanical Rate 10 FiO2 35 Tidal Volume 450 PEEP 5 Blood Gas Comments abg was done by ravi Sodium 142 Potassium 3.9 Chloride 109 H Carbon Dioxide 26 Anion Gap 11 BUN 30 H Creatinine 0.8 Est GFR ( Amer) > 60 Est GFR (Non-Af Amer) > 60 POC Glucose (mg/dL) Random Glucose 102 Calcium 7.5 L Alk Phos Iso-Intestine Alk Phos Iso-Bone Alk Phos Iso-Liver Alk Phos Iso-Placenta Alk Phos Iso-Renal Blood Type Antibody Screen Crossmatch BBK History Checked 12/14/16 12/14/16 12/14/16 05:05 10:08 10:20 WBC RBC Hgb Hct MCV MCH MCHC RDW Plt Count pCO2 pO2 HCO3 ABG pH ABG Total CO2 ABG O2 Saturation ABG O2 Content ABG Base Excess ABG Hemoglobin ABG Carboxyhemoglobin POC ABG HHb (Measured) ABG Methemoglobin ABG O2 Capacity Torres Test A-a O2 Difference Hgb O2 Saturation Vent Mode Mechanical Rate FiO2 Tidal Volume PEEP Blood Gas Comments Sodium Potassium Chloride Carbon Dioxide Anion Gap BUN Creatinine Est GFR ( Amer) Est GFR (Non-Af Amer) POC Glucose (mg/dL) 104 130 H Random Glucose Calcium Alk Phos Iso-Intestine Alk Phos Iso-Bone Alk Phos Iso-Liver Alk Phos Iso-Placenta Alk Phos Iso-Renal Blood Type A POSITIVE Antibody Screen Negative Crossmatch See Detail BBK History Checked Patient has bt Fingerstick Blood Sugar Results: 130 Critical Care Progress Note - Ventilator Checklist Head of Bed 30 Degrees: Yes Daily Sedation Vacation: Yes Daily Assessment of Readiness to Wean: Yes Daily Spontaneous Breathing Trial: Yes PUD Prophalyxis: Yes DVT Prophylaxis: Yes Oral Care with Chlorhexidine Gluconate {CHG}: Yes - Extremities/Vascular Does the Patient have a Central Venous Catheter?: No Does the Patient need a Central Venous Catheter?: No Assessment/Plan (1) Acute hypercapnic respiratory failure Current Visit: Yes Status: Acute Priority: High Comment: Acute respiratory failure secondary to aspiration pneumonia Not a candidate for vent weaning at this time due to poor mental status Aggressive pulmonary toilet, chest PT, suctioning (2) Aspiration pneumonia Current Visit: Yes Status: Acute Comment: Continue IV Antibiotics with Meropenem & Voriconazole and Flagyl Maintain aspiration precautions (3) Severe sepsis Current Visit: Yes Status: Acute Priority: High Comment: Severe sepsis from UTI and aspiration pneumonia with Klebsiella pneumoniae Continue Meropenem and Voriconazole Continue Flagyl 500 mg PO Q8H (4) C. difficile colitis Current Visit: Yes Status: Acute Comment: Continue Flagyl 500 mg PO Q8H (5) GEORGINA (acute kidney injury) Current Visit: Yes Status: Acute Priority: High (6) Osteomyelitis of right foot Current Visit: Yes Status: Acute (7) Avascular necrosis of bone of right hip Current Visit: No Status: Acute Priority: High Comment: for sx when stable (8) Bacteremia due to Gram-positive bacteria Current Visit: No Status: Acute Priority: High (9) DVT prophylaxis Current Visit: No Status: Acute
[2016-12-14 14:12] LABS: ARTERIAL BLOOD GAS MODE A/C
--- NOTE | 2016-12-14 14:54 | CP.PCM.PN ---
Subjective - Date & Time of Evaluation Date of Evaluation: 12/14/16 Time of Evaluation: 12:30 - Subjective Subjective: Feb[facility] Op[facility] eyes to verbal stimuli but does not follow simple commands Tolerated OGT feeding Noted about 150 ml of brown liquid stool in Rectal tube bag Awaiting family to come to discuss plan of care - ? poss Trach and PEG placement Objective - Vital Signs/Intake and Output Vital Signs (last 24 hours): Temp Pulse Resp BP Pulse Ox 98.3 F 98 H 20 115/61 99 12/14/16 12:00 12/14/16 12:00 12/14/16 12:00 12/14/16 12:00 12/14/16 12:00 Intake and Output: 12/14/16 12/14/16 06:59 18:59 Intake Total 1560 100 Balance 1560 100 - Medications Medications: Current Medications Acetaminophen (Tylenol 650mg/20.3ml Solution Ud) 650 mg PO Q6 PRN PRN Reason: fever Last Admin: 12/14/16 04:50 Dose: 650 mg Albuterol/Ipratropium (Duoneb 3 Mg/0.5 Mg (3 Ml) Ud) 3 ml INH RQID [facility] Last Admin: 12/14/16 11:24 Dose: 3 ml Collagenase (Santyl) 1 applic TOP DAILY [facility] Last Admin: 12/13/16 11:25 Dose: 1 applic Furosemide (Lasix) 40 mg IV DAILY [facility] Last Admin: 12/14/16 08:48 Dose: 40 mg Voriconazole 300 mg/ Sodium (Chloride) 250 mls @ 125 mls/hr IVPB Q12 LARRY Last Admin: 12/13/16 20:33 Dose: 125 mls/hr Meropenem 1 gm/ Sodium (Chloride) 100 mls @ 100 mls/hr IVPB Q12 LARRY Last Admin: 12/14/16 08:49 Dose: 100 mls/hr Insulin Human Lispro (Humalog) 0 units SC Q6 LARRY PRN Reason: Protocol Last Admin: 12/14/16 05:06 Dose: Not Given Metronidazole (Flagyl) 500 mg PO Q8 [facility] Last Admin: 12/14/16 00:50 Dose: 500 mg Nystatin (Nystop Topical Powder) 1 applic TOP TID [facility] Last Admin: 12/14/16 08:50 Dose: 1 pow Pantoprazole Sodium (Protonix Inj) 40 mg IVP DAILY LARRY Last Admin: 12/14/16 08:50 Dose: 40 mg - Labs Labs: 12/14/16 04:35 12/14/16 04:35 PT 13.2 Seconds (9.8-13.1) H 12/10/16 04:20 INR 1.3 (0.9-1.2) H 12/10/16 04:20 APTT 35.7 Seconds (25.6-37.1) 12/10/16 04:20 - Constitutional Appears: Older Than Stated Age, Chronically Ill, Other (Intubated on Mech Vent ) - Head Exam Head Exam: NORMAL INSPECTION, NORMOCEPHALIC - Eye Exam Eye Exam: EOMI, Normal appearance Pupil Exam: NORMAL ACCOMODATION - ENT Exam ENT Exam: Mucous Membranes Dry, Normal External Ear Exam - Respiratory Exam Respiratory Exam: Rales, Rhonchi - Cardiovascular Exam Cardiovascular Exam: REGULAR RHYTHM, +S1, +S2 - GI/Abdominal Exam GI & Abdominal Exam: Soft, Normal Bowel Sounds. absent: Tenderness - Extremities Exam Extremities Exam: Normal Capillary Refill, Pedal Edema - Neurological Exam Neurological Exam: Awake Additional comments: Pt is intubated awake but does not follow simple commands - Psychiatric Exam Psychiatric exam: Flat Affect - Skin Skin Exam: Dry, Pallor Assessment and Plan (1) Acute hypercapnic respiratory failure Status: Acute (2) Fungemia Status: Acute (3) Aspiration pneumonia Status: Acute (4) Ventricular arrhythmia Status: Acute (5) Coag negative Staphylococcus bacteremia Status: Acute (6) Anemia Status: Acute (7) Paroxysmal atrial fibrillation with rapid ventricular response Status: Acute (8) Alkaline phosphatase elevation Status: Acute - Assessment and Plan (Free Text) Assessment: Assumed care from Dr Day ( Hospitalist Team is covering while he is on vacation) Pt has a long complicated hospital course - he was admitted on 11/20 - was intubated then extubated after 4 days and reintubated 12/04 ( he remains intubated since then). He was dx to have Asp PNA, Fungemia, Staph coag neg Bacteremia, C diff Colitis. 1) Acute hypercapnic respiratory failure Status: Acute Pt remains intubated on Mech vent will have discussion with family regarding need for Trach (2) Fungemia Status: Acute Blood c/s : yeast, + Saccharomyces Rpt Blood c/s : neg so far ID consulted Pt is on Voriconazole (3) Aspiration pneumonia Status: Acute cont IV meropenem Pt remains febrile (4) Ventricular arrhythmia Status: Acute Cardio consulted Dr Barnes (5) Coag negative Staphylococcus bacteremia Status: Acute Pt on IV Meropenem (6) Anemia, chronic , and acute Status: Acute Transfuse 1 unit PRBC + FOBT GI consulted cont PPI (7) Paroxysmal atrial fibrillation with rapid ventricular response Status: Acute rate controlled at present not on anticoag - sec to anemia and + FOBT (8) Alkaline phosphatase elevation Status: Acute unclear etio Alk Phos Isoenz- elevated Sunita, Abd Sono : neg 9. GEORGINA, improved Nephrology consulted 10 C diff Colitis, resolved + Stool C diff diarrhea reolved rpt C diff neg pt on PO Flagyl
[2016-12-14] MEDS: Santyl Collagenase OINTMENT TOP SCH (15:27)
[2016-12-14 18:42] LABS: URINE BILIRUBIN NEGATIVE (NEGATIVE); URINE BLOOD MODERATE (NEGATIVE); URINE COLOR YELLOW (YELLOW); URINE GLUCOSE (UA) NEG (Normal); URINE KETONE NEGATIVE (NEGATIVE); URINE LEUKOCYTE ESTERASE LARGE Leu/uL (Negative); URINE PROTEIN NEGATIVE (NEGATIVE); URINE UROBILINOGEN 0.2-1.0 mg/dL (0.2-1.0); WBC URINE 67 /hpf (0-5)
[2016-12-14 18:43] LABS: RBC URINE 22 /hpf (0-3)
[2016-12-14 18:44] LABS: URINE BACTERIA OCC (<OCC)
[2016-12-15 04:25] LABS: ABG ALLEN TEST YES; ABG MECHANICAL RATE 10; ARTERIAL BLOOD GAS HCO3 32.8 mmol/L (21-28); ARTERIAL BLOOD GAS O2 CAPACITY 9.3 mL/dL (16-24); ARTERIAL BLOOD GAS O2 CONTENT 9.3 ML/dL (15-23); ARTERIAL BLOOD GAS PH 7.57 (7.35-7.45); ARTERIAL BLOOD GAS PO2 103 mm/Hg (80-100); ARTERIAL BLOOD HGB O2 SAT 96.5 % (95.0-98.0); ATERIAL BLOOD GAS PEEP 5; CARBOXYHEMOGLOBIN 1.1 % (0.5-1.5); HHB 0.5 % (0.0-5.0); METHEMOGLOBIN 1.8 % (0.0-3.0)
[2016-12-15] MEDS: Insulin Lispro (humaLOG) 100 Units/ml Inj SC SCH ×4 (05:15→23:28)
[2016-12-15 05:33] LABS: ALB/GLOB RATIO 0.5 (1.0-2.1); ALKALINE PHOSPHATASE 617 U/L (38-126); ALT/SGPT 16 U/L (21-72); AST/SGOT 29 U/L (17-59); BASO # 0.1 K/uL (0.0-0.2); BILIRUBIN,TOTAL 0.3 mg/dl (0.2-1.3); BLOOD UREA NITROGEN 31 mg/dl (9-20); CALCIUM 7.7 mg/dL (8.4-10.2); CARBON DIOXIDE 26 mmol/L (22-30); CHLORIDE 109 mmol/L (98-107); EOS # 0.3 K/uL (0.0-0.7); EOS % 3.4 % (0.0-4.0); GFR AFRICAN-AMERICAN > 60; GLUCOSE,RANDOM 124 mg/dL (75-110); HEMATOCRIT 28.3 % (35.0-51.0); LYMPH # 2.1 K/uL (1.0-4.3); LYMPH % 28.2 % (20.0-40.0); MEAN CELL VOLUME 91.3 fl (80.0-94.0); MEAN CORPUSCULAR HEMOGLOBIN 29.6 pg (27.0-31.0); MEAN CORPUSCULAR HGB CONC 32.4 g/dL (33.0-37.0); MEAN PLATELET VOLUME 9.8 fl (7.2-11.7); MONO # 0.6 K/uL (0.0-0.8); MONO % 8.2 % (0.0-10.0); NEUT # 4.4 K/uL (1.8-7.0); NEUT % 59.2 % (50.0-75.0); POTASSIUM 4.2 MMOL/L (3.6-5.0); RED CELL DISTRIBUTION WIDTH 17.3 % (11.5-14.5); SODIUM 144 mmol/l (132-148); TOTAL PROTEIN 6.7 G/DL (6.3-8.2); WHITE BLOOD COUNT 7.5 K/uL (4.8-10.8)
[2016-12-15] MEDS: Albuterol-Ipratrop 3 mg / 0.5 (3 ml) UD INH SCH ×4 (08:31→19:35)
[2016-12-15] MEDS: Meropenem 1 GM in Sodium Chloride 0.9% 100 ML IVPB SCH ×2 (09:32→20:22)
[2016-12-15] MEDS: Santyl Collagenase OINTMENT TOP SCH (09:34)
--- NOTE | 2016-12-15 09:48 | CP.CCUPN ---
<Lilian Low - Last Filed: 12/15/16 09:50> CCU Subjective - Physician Review Subjective (Free Text): 12/15/16 09:50 Patient seen and examined at bedside. Remains intubated, alert when prompted, follows simple commands of squeezing hands, pushes my hand with his face and nods yes to some statements. CCU Objective - Vital Signs / Intake & Output Vital Signs (Last 4 hours): Vital Signs Temp Pulse Resp BP Pulse Ox 12/15/16 09:31 123/64 12/15/16 08:00 99.9 F H 103 H 21 130/67 100 12/15/16 06:47 101 H 15 122/65 100 Intake and Output (Last 8hrs): Intake & Output 12/14/16 12/15/16 12/15/16 22:59 06:59 14:59 Intake Total 2100 790 Output Total 1500 800 Balance 600 -10 Intake: Intake, Piggyback 600 Tube Feeding 1200 640 Free Water Flush 300 150 Output: Urine 1400 800 Urethral (No) 1400 800 Stool 100 - Physical Exam Head: Positive for: Normocephalic Pupils: Positive for: PERRL Extroacular Muscles: Positive for: EOMI. Negative for: Gaze Palsy Conjunctiva: Negative for: Injected, Icteric Mouth: Positive for: Moist Mucous Membranes (ET tube, OG tube in place) Neck: Positive for: Normal Range of Motion. Negative for: Meningeal Signs, JVD , Lymphadenopathy Respiratory/Chest: Positive for: Decreased Breath Sounds. Negative for: Accessory Muscle Use, Wheezes, Rhonchi Cardiovascular: Positive for: Regular Rate and Rhythm. Negative for: Murmurs, Rub Abdomen: Positive for: Normal Bowel Sounds. 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 Negative for: CALF TENDERNESS, Cyanosis Neurological: Positive for: Motor Func Grossly Intact, Norm Deep Tendon Reflexes Skin: Positive for: Warm. Negative for: Rashes Psychiatric: Positive for: Alert (when prompted, follows simple commands). Negative for: Lethargic - Medications Active Medications: Active Medications Generic Name Dose Route Start Last Admin Trade Name Chester PRN Reason Stop Dose Admin Acetaminophen 650 mg 12/12/16 21:03 12/14/16 04:50 Tylenol 650mg/20.3ml Solution Ud PO 650 mg Q6 PRN Administration fever Albuterol/Ipratropium 3 ml 12/09/16 12:00 12/15/16 08:31 Duoneb 3 Mg/0.5 Mg (3 Ml) Ud INH 3 ml RQID LARRY Administration Collagenase 1 applic 12/08/16 16:15 12/15/16 09:34 Santyl TOP 1 applic DAILY LARRY Administration Furosemide 40 mg 12/13/16 09:00 12/15/16 09:31 Lasix IV 40 mg DAILY LARRY Administration Voriconazole 300 mg/ Sodium 250 mls @ 125 mls/hr 12/10/16 09:00 12/14/16 21: 50 Chloride IVPB 125 mls/hr Q12 LARRY Administration Meropenem 1 gm/ Sodium 100 mls @ 100 mls/hr 12/13/16 21:00 12/15/16 09:32 Chloride IVPB 100 mls/hr Q12 LARRY Administration Insulin Human Lispro 0 units 12/06/16 22:00 12/15/16 05:15 Humalog SC 1 unit Q6 LARRY Administration Protocol Metronidazole 500 mg 12/13/16 17:00 12/15/16 09:31 Flagyl PO 500 mg Q8 LARRY Administration Nystatin 1 applic 12/08/16 17:00 12/15/16 09:34 Nystop Topical Powder TOP 1 pow TID LARRY Administration Pantoprazole Sodium 40 mg 12/09/16 09:00 12/15/16 09:37 Protonix Inj IVP 40 mg DAILY LARRY Administration - Patient Studies Lab Studies: Microbiology Studies 12/10/16 18:30 Blood Culture - Preliminary Blood-Venous NO GROWTH AFTER 4 DAYS 12/10/16 18:30 Blood Culture - Preliminary Blood-Venous NO GROWTH AFTER 4 DAYS 12/13/16 16:45 Blood Culture - Preliminary Blood-Venous NO GROWTH AFTER 24 HOURS 12/13/16 16:45 Blood Culture - Preliminary Blood-Venous NO GROWTH AFTER 24 HOURS Lab Studies 12/15/16 12/15/16 12/15/16 Range/Units 05:09 04:30 04:30 WBC 7.5 (4.8-10.8) K/uL RBC 3.10 L (4.40-5.90) Mil/uL Hgb 9.2 L (12.0-18.0) g/dL Hct 28.3 L (35.0-51.0) % MCV 91.3 (80.0-94.0) fl MCH 29.6 (27.0-31.0) pg MCHC 32.4 L (33.0-37.0) g/dL RDW 17.3 H (11.5-14.5) % Plt Count 254 (130-400) K/uL MPV 9.8 (7.2-11.7) fl Neut % (Auto) 59.2 (50.0-75.0) % Lymph % (Auto) 28.2 (20.0-40.0) % Coffee % (Auto) 8.2 (0.0-10.0) % Eos % (Auto) 3.4 (0.0-4.0) % Baso % (Auto) 1.0 (0.0-2.0) % Neut # 4.4 (1.8-7.0) K/uL Lymph # 2.1 (1.0-4.3) K/uL Coffee # 0.6 (0.0-0.8) K/uL Eos # 0.3 (0.0-0.7) K/uL Baso # 0.1 (0.0-0.2) K/uL pCO2 (35-45) mm/Hg pO2 (80-100) mm/Hg HCO3 (21-28) mmol/L ABG pH (7.35-7.45) ABG Total CO2 (22-28) mmol/L ABG O2 Saturation (95-98) % ABG O2 Content (15-23) ML/dL ABG Base Excess (-2.0-3.0) mmol/L ABG Hemoglobin (11.7-17.4) g/dL ABG Carboxyhemoglobin (0.5-1.5) % POC ABG HHb (Measured) (0.0-5.0) % ABG Methemoglobin (0.0-3.0) % ABG O2 Capacity (16-24) mL/dL Torres Test A-a O2 Difference mm/Hg Hgb O2 Saturation (95.0-98.0) % Vent Mode Mechanical Rate FiO2 % Tidal Volume PEEP Sodium 144 (132-148) mmol/l Potassium 4.2 (3.6-5.0) MMOL/L Chloride 109 H (98-107) mmol/L Carbon Dioxide 26 (22-30) mmol/L Anion Gap 13 (10-20) BUN 31 H (9-20) mg/dl Creatinine 0.9 (0.8-1.5) mg/dL Est GFR ( Amer) > 60 Est GFR (Non-Af Amer) > 60 POC Glucose (mg/dL) 176 H (65-110) mg/dL Random Glucose 124 H (75-110) mg/dL Calcium 7.7 L (8.4-10.2) mg/dL Total Bilirubin 0.3 (0.2-1.3) mg/dl AST 29 (17-59) U/L ALT 16 L D (21-72) U/L Alkaline Phosphatase 617 H (38-126) U/L Total Protein 6.7 (6.3-8.2) G/DL Albumin 2.3 L (3.5-5.0) g/dL Globulin 4.4 H (2.2-3.9) gm/dL Albumin/Globulin Ratio 0.5 L (1.0-2.1) Urine Color (YELLOW) Urine Clarity (Clear) Urine pH (5.0-8.0) Ur Specific [place] (1.003-1.030) Urine Protein (NEGATIVE) mg/dL Urine Glucose (UA) (Normal) mg/dL Urine Ketones (NEGATIVE) mg/dL Urine Blood (NEGATIVE) Urine Nitrate (NEGATIVE) Urine Bilirubin (NEGATIVE) Urine Urobilinogen (0.2-1.0) mg/dL Ur Leukocyte Esterase (Negative) Jac/uL Urine RBC (Auto) (0-3) /hpf Urine Microscopic WBC (0-5) /hpf Urine Bacteria (<OCC) Blood Type Antibody Screen Crossmatch BBK History Checked 12/15/16 12/14/16 12/14/16 Range/Units 04:09 21:37 17:45 WBC (4.8-10.8) K/uL RBC (4.40-5.90) Mil/uL Hgb (12.0-18.0) g/dL Hct (35.0-51.0) % MCV (80.0-94.0) fl MCH (27.0-31.0) pg MCHC (33.0-37.0) g/dL RDW (11.5-14.5) % Plt Count (130-400) K/uL MPV (7.2-11.7) fl Neut % (Auto) (50.0-75.0) % Lymph % (Auto) (20.0-40.0) % Coffee % (Auto) (0.0-10.0) % Eos % (Auto) (0.0-4.0) % Baso % (Auto) (0.0-2.0) % Neut # (1.8-7.0) K/uL Lymph # (1.0-4.3) K/uL Coffee # (0.0-0.8) K/uL Eos # (0.0-0.7) K/uL Baso # (0.0-0.2) K/uL pCO2 36 (35-45) mm/Hg pO2 103 H (80-100) mm/Hg HCO3 32.8 H (21-28) mmol/L ABG pH 7.57 H (7.35-7.45) ABG Total CO2 34.1 H (22-28) mmol/L ABG O2 Saturation 99.5 H (95-98) % ABG O2 Content 9.3 L (15-23) ML/dL ABG Base Excess 10.1 H (-2.0-3.0) mmol/L ABG Hemoglobin 6.7 L (11.7-17.4) g/dL ABG Carboxyhemoglobin 1.1 (0.5-1.5) % POC ABG HHb (Measured) 0.5 (0.0-5.0) % ABG Methemoglobin 1.8 (0.0-3.0) % ABG O2 Capacity 9.3 L (16-24) mL/dL Torres Test Yes A-a O2 Difference 102.0 mm/Hg Hgb O2 Saturation 96.5 (95.0-98.0) % Vent Mode Mechanical Rate 10 FiO2 35.0 % Tidal Volume 450 PEEP 5 Sodium (132-148) mmol/l Potassium (3.6-5.0) MMOL/L Chloride (98-107) mmol/L Carbon Dioxide (22-30) mmol/L Anion Gap (10-20) BUN (9-20) mg/dl Creatinine (0.8-1.5) mg/dL Est GFR ( Amer) Est GFR (Non-Af Amer) POC Glucose (mg/dL) 142 H (65-110) mg/dL Random Glucose (75-110) mg/dL Calcium (8.4-10.2) mg/dL Total Bilirubin (0.2-1.3) mg/dl AST (17-59) U/L ALT (21-72) U/L Alkaline Phosphatase (38-126) U/L Total Protein (6.3-8.2) G/DL Albumin (3.5-5.0) g/dL Globulin (2.2-3.9) gm/dL Albumin/Globulin Ratio (1.0-2.1) Urine Color Yellow (YELLOW) Urine Clarity Slighty-cloudy (Clear) Urine pH 6.0 (5.0-8.0) Ur Specific [place] 1.012 (1.003-1.030) Urine Protein Negative (NEGATIVE) mg/dL Urine Glucose (UA) Neg (Normal) mg/dL Urine Ketones Negative (NEGATIVE) mg/dL Urine Blood Moderate (NEGATIVE) Urine Nitrate Negative (NEGATIVE) Urine Bilirubin Negative (NEGATIVE) Urine Urobilinogen 0.2-1.0 (0.2-1.0) mg/dL Ur Leukocyte Esterase Large (Negative) Jac/uL Urine RBC (Auto) 22 H (0-3) /hpf Urine Microscopic WBC 67 H (0-5) /hpf Urine Bacteria Occ H (<OCC) Blood Type Antibody Screen Crossmatch BBK History Checked 12/14/16 12/14/16 12/14/16 Range/Units 16:35 10:20 10:08 WBC (4.8-10.8) K/uL RBC (4.40-5.90) Mil/uL Hgb (12.0-18.0) g/dL Hct (35.0-51.0) % MCV (80.0-94.0) fl MCH (27.0-31.0) pg MCHC (33.0-37.0) g/dL RDW (11.5-14.5) % Plt Count (130-400) K/uL MPV (7.2-11.7) fl Neut % (Auto) (50.0-75.0) % Lymph % (Auto) (20.0-40.0) % Coffee % (Auto) (0.0-10.0) % Eos % (Auto) (0.0-4.0) % Baso % (Auto) (0.0-2.0) % Neut # (1.8-7.0) K/uL Lymph # (1.0-4.3) K/uL Coffee # (0.0-0.8) K/uL Eos # (0.0-0.7) K/uL Baso # (0.0-0.2) K/uL pCO2 (35-45) mm/Hg pO2 (80-100) mm/Hg HCO3 (21-28) mmol/L ABG pH (7.35-7.45) ABG Total CO2 (22-28) mmol/L ABG O2 Saturation (95-98) % ABG O2 Content (15-23) ML/dL ABG Base Excess (-2.0-3.0) mmol/L ABG Hemoglobin (11.7-17.4) g/dL ABG Carboxyhemoglobin (0.5-1.5) % POC ABG HHb (Measured) (0.0-5.0) % ABG Methemoglobin (0.0-3.0) % ABG O2 Capacity (16-24) mL/dL Torres Test A-a O2 Difference mm/Hg Hgb O2 Saturation (95.0-98.0) % Vent Mode Mechanical Rate FiO2 % Tidal Volume PEEP Sodium (132-148) mmol/l Potassium (3.6-5.0) MMOL/L Chloride (98-107) mmol/L Carbon Dioxide (22-30) mmol/L Anion Gap (10-20) BUN (9-20) mg/dl Creatinine (0.8-1.5) mg/dL Est GFR ( Amer) Est GFR (Non-Af Amer) POC Glucose (mg/dL) 141 H 130 H (65-110) mg/dL Random Glucose (75-110) mg/dL Calcium (8.4-10.2) mg/dL Total Bilirubin (0.2-1.3) mg/dl AST (17-59) U/L ALT (21-72) U/L Alkaline Phosphatase (38-126) U/L Total Protein (6.3-8.2) G/DL Albumin (3.5-5.0) g/dL Globulin (2.2-3.9) gm/dL Albumin/Globulin Ratio (1.0-2.1) Urine Color (YELLOW) Urine Clarity (Clear) Urine pH (5.0-8.0) Ur Specific [place] (1.003-1.030) Urine Protein (NEGATIVE) mg/dL Urine Glucose (UA) (Normal) mg/dL Urine Ketones (NEGATIVE) mg/dL Urine Blood (NEGATIVE) Urine Nitrate (NEGATIVE) Urine Bilirubin (NEGATIVE) Urine Urobilinogen (0.2-1.0) mg/dL Ur Leukocyte Esterase (Negative) Jac/uL Urine RBC (Auto) (0-3) /hpf Urine Microscopic WBC (0-5) /hpf Urine Bacteria (<OCC) Blood Type A POSITIVE Antibody Screen Negative Crossmatch See Detail BBK History Checked Patient has bt 12/14/16 Range/Units 04:50 WBC (4.8-10.8) K/uL RBC (4.40-5.90) Mil/uL Hgb (12.0-18.0) g/dL Hct (35.0-51.0) % MCV (80.0-94.0) fl MCH (27.0-31.0) pg MCHC (33.0-37.0) g/dL RDW (11.5-14.5) % Plt Count (130-400) K/uL MPV (7.2-11.7) fl Neut % (Auto) (50.0-75.0) % Lymph % (Auto) (20.0-40.0) % Coffee % (Auto) (0.0-10.0) % Eos % (Auto) (0.0-4.0) % Baso % (Auto) (0.0-2.0) % Neut # (1.8-7.0) K/uL Lymph # (1.0-4.3) K/uL Coffee # (0.0-0.8) K/uL Eos # (0.0-0.7) K/uL Baso # (0.0-0.2) K/uL pCO2 (35-45) mm/Hg pO2 (80-100) mm/Hg HCO3 (21-28) mmol/L ABG pH (7.35-7.45) ABG Total CO2 (22-28) mmol/L ABG O2 Saturation (95-98) % ABG O2 Content 11.0 L (15-23) ML/dL ABG Base Excess (-2.0-3.0) mmol/L ABG Hemoglobin (11.7-17.4) g/dL ABG Carboxyhemoglobin (0.5-1.5) % POC ABG HHb (Measured) (0.0-5.0) % ABG Methemoglobin (0.0-3.0) % ABG O2 Capacity (16-24) mL/dL Torres Test A-a O2 Difference mm/Hg Hgb O2 Saturation (95.0-98.0) % Vent Mode A/c Mechanical Rate FiO2 35.0 % Tidal Volume PEEP Sodium (132-148) mmol/l Potassium (3.6-5.0) MMOL/L Chloride (98-107) mmol/L Carbon Dioxide (22-30) mmol/L Anion Gap (10-20) BUN (9-20) mg/dl Creatinine (0.8-1.5) mg/dL Est GFR ( Amer) Est GFR (Non-Af Amer) POC Glucose (mg/dL) (65-110) mg/dL Random Glucose (75-110) mg/dL Calcium (8.4-10.2) mg/dL Total Bilirubin (0.2-1.3) mg/dl AST (17-59) U/L ALT (21-72) U/L Alkaline Phosphatase (38-126) U/L Total Protein (6.3-8.2) G/DL Albumin (3.5-5.0) g/dL Globulin (2.2-3.9) gm/dL Albumin/Globulin Ratio (1.0-2.1) Urine Color (YELLOW) Urine Clarity (Clear) Urine pH (5.0-8.0) Ur Specific [place] (1.003-1.030) Urine Protein (NEGATIVE) mg/dL Urine Glucose (UA) (Normal) mg/dL Urine Ketones (NEGATIVE) mg/dL Urine Blood (NEGATIVE) Urine Nitrate (NEGATIVE) Urine Bilirubin (NEGATIVE) Urine Urobilinogen (0.2-1.0) mg/dL Ur Leukocyte Esterase (Negative) Jac/uL Urine RBC (Auto) (0-3) /hpf Urine Microscopic WBC (0-5) /hpf Urine Bacteria (<OCC) Blood Type Antibody Screen Crossmatch BBK History Checked Laboratory Results - last 24 hr 12/14/16 12/14/16 12/14/16 04:50 10:08 10:20 WBC RBC Hgb Hct MCV MCH MCHC RDW Plt Count MPV Neut % (Auto) Lymph % (Auto) Coffee % (Auto) Eos % (Auto) Baso % (Auto) Neut # Lymph # Coffee # Eos # Baso # pCO2 pO2 HCO3 ABG pH ABG Total CO2 ABG O2 Saturation ABG O2 Content 11.0 L ABG Base Excess ABG Hemoglobin ABG Carboxyhemoglobin POC ABG HHb (Measured) ABG Methemoglobin ABG O2 Capacity Torres Test A-a O2 Difference Hgb O2 Saturation Vent Mode A/c Mechanical Rate FiO2 35.0 Tidal Volume PEEP Sodium Potassium Chloride Carbon Dioxide Anion Gap BUN Creatinine Est GFR ( Amer) Est GFR (Non-Af Amer) POC Glucose (mg/dL) 130 H Random Glucose Calcium Total Bilirubin AST ALT Alkaline Phosphatase Total Protein Albumin Globulin Albumin/Globulin Ratio Urine Color Urine Clarity Urine pH Ur Specific [place] Urine Protein Urine Glucose (UA) Urine Ketones Urine Blood Urine Nitrate Urine Bilirubin Urine Urobilinogen Ur Leukocyte Esterase Urine RBC (Auto) Urine Microscopic WBC Urine Bacteria Blood Type A POSITIVE Antibody Screen Negative Crossmatch See Detail BBK History Checked Patient has bt 12/14/16 12/14/16 12/14/16 16:35 17:45 21:37 WBC RBC Hgb Hct MCV MCH MCHC RDW Plt Count MPV Neut % (Auto) Lymph % (Auto) Coffee % (Auto) Eos % (Auto) Baso % (Auto) Neut # Lymph # Coffee # Eos # Baso # pCO2 pO2 HCO3 ABG pH ABG Total CO2 ABG O2 Saturation ABG O2 Content ABG Base Excess ABG Hemoglobin ABG Carboxyhemoglobin POC ABG HHb (Measured) ABG Methemoglobin ABG O2 Capacity Torres Test A-a O2 Difference Hgb O2 Saturation Vent Mode Mechanical Rate FiO2 Tidal Volume PEEP Sodium Potassium Chloride Carbon Dioxide Anion Gap BUN Creatinine Est GFR ( Amer) Est GFR (Non-Af Amer) POC Glucose (mg/dL) 141 H 142 H Random Glucose Calcium Total Bilirubin AST ALT Alkaline Phosphatase Total Protein Albumin Globulin Albumin/Globulin Ratio Urine Color Yellow Urine Clarity Slighty-cloudy Urine pH 6.0 Ur Specific [place] 1.012 Urine Protein Negative Urine Glucose (UA) Neg Urine Ketones Negative Urine Blood Moderate Urine Nitrate Negative Urine Bilirubin Negative Urine Urobilinogen 0.2-1.0 Ur Leukocyte Esterase Large Urine RBC (Auto) 22 H Urine Microscopic WBC 67 H Urine Bacteria Occ H Blood Type Antibody Screen Crossmatch BBK History Checked 12/15/16 12/15/16 12/15/16 04:09 04:30 04:30 WBC 7.5 RBC 3.10 L Hgb 9.2 L Hct 28.3 L MCV 91.3 MCH 29.6 MCHC 32.4 L RDW 17.3 H Plt Count 254 MPV 9.8 Neut % (Auto) 59.2 Lymph % (Auto) 28.2 Coffee % (Auto) 8.2 Eos % (Auto) 3.4 Baso % (Auto) 1.0 Neut # 4.4 Lymph # 2.1 Coffee # 0.6 Eos # 0.3 Baso # 0.1 pCO2 36 pO2 103 H HCO3 32.8 H ABG pH 7.57 H ABG Total CO2 34.1 H ABG O2 Saturation 99.5 H ABG O2 Content 9.3 L ABG Base Excess 10.1 H ABG Hemoglobin 6.7 L ABG Carboxyhemoglobin 1.1 POC ABG HHb (Measured) 0.5 ABG Methemoglobin 1.8 ABG O2 Capacity 9.3 L Torres Test Yes A-a O2 Difference 102.0 Hgb O2 Saturation 96.5 Vent Mode Mechanical Rate 10 FiO2 35.0 Tidal Volume 450 PEEP 5 Sodium 144 Potassium 4.2 Chloride 109 H Carbon Dioxide 26 Anion Gap 13 BUN 31 H Creatinine 0.9 Est GFR ( Amer) > 60 Est GFR (Non-Af Amer) > 60 POC Glucose (mg/dL) Random Glucose 124 H Calcium 7.7 L Total Bilirubin 0.3 AST 29 ALT 16 L D Alkaline Phosphatase 617 H Total Protein 6.7 Albumin 2.3 L Globulin 4.4 H Albumin/Globulin Ratio 0.5 L Urine Color Urine Clarity Urine pH Ur Specific [place] Urine Protein Urine Glucose (UA) Urine Ketones Urine Blood Urine Nitrate Urine Bilirubin Urine Urobilinogen Ur Leukocyte Esterase Urine RBC (Auto) Urine Microscopic WBC Urine Bacteria Blood Type Antibody Screen Crossmatch BBK History Checked 12/15/16 05:09 WBC RBC Hgb Hct MCV MCH MCHC RDW Plt Count MPV Neut % (Auto) Lymph % (Auto) Coffee % (Auto) Eos % (Auto) Baso % (Auto) Neut # Lymph # Coffee # Eos # Baso # pCO2 pO2 HCO3 ABG pH ABG Total CO2 ABG O2 Saturation ABG O2 Content ABG Base Excess ABG Hemoglobin ABG Carboxyhemoglobin POC ABG HHb (Measured) ABG Methemoglobin ABG O2 Capacity Torres Test A-a O2 Difference Hgb O2 Saturation Vent Mode Mechanical Rate FiO2 Tidal Volume PEEP Sodium Potassium Chloride Carbon Dioxide Anion Gap BUN Creatinine Est GFR ( Amer) Est GFR (Non-Af Amer) POC Glucose (mg/dL) 176 H Random Glucose Calcium Total Bilirubin AST ALT Alkaline Phosphatase Total Protein Albumin Globulin Albumin/Globulin Ratio Urine Color Urine Clarity Urine pH Ur Specific [place] Urine Protein Urine Glucose (UA) Urine Ketones Urine Blood Urine Nitrate Urine Bilirubin Urine Urobilinogen Ur Leukocyte Esterase Urine RBC (Auto) Urine Microscopic WBC Urine Bacteria Blood Type Antibody Screen Crossmatch BBK History Checked Fingerstick Blood Sugar Results: 176 Review of Systems - Review of Systems Systems not reviewed;Unavailable: Intubated Critical Care Progress Note - Ventilator Checklist Head of Bed 30 Degrees: Yes Daily Assessment of Readiness to Wean: Yes Daily Spontaneous Breathing Trial: Yes PUD Prophalyxis: Yes DVT Prophylaxis: Yes (SCD's only) Oral Care with Chlorhexidine Gluconate {CHG}: Yes - Vent Settings MODE:: PRVC (/AC) TIDAL VOLUME:: 450 RESP RATE:: 10 FIO2:: 35 PEEP:: 5 - Extremities/Vascular Does the Patient have a Central Venous Catheter?: No Does the Patient need a Central Venous Catheter?: Yes Does the Patient have a No Catheter?: Yes Does the Patient need a No Catheter?: Yes Catheter Insertion Criteria: Stage 3/Stage 4 decubits as per policy - Restraints Justification for Restraints: High risk for self extubation, High risk for removing IV access - Prophylaxis GI Prophylaxis GI: PPI - Prophylaxis DVT Prophylaxis DVT: SCDs Assessment/Plan - Assessment and Plan (Free Text) Assessment: 71 yr old M resident at [place] with PMHx including HTN, A-fib, dyslipidemia , DM Type 2, diabetic neuropathy, renal insufficiency, PVD, anemia, Dementia, Osteomyelitis R foot bone base on 2015, Avascular Necrosis R Hip, Hx falls , Alcohol abuse admitted to ICU for respiratory failure requiring intubation s/ p pneumonia and septic shock. Patient with fungemia 12/04/16 , UCx + yeast species 12/04/16, Klebsiella pneumoniae 11/21, C. diff + 11/20. 1. Acute Hypercapneic Respiratory Failure 2dary to pneumonia (2nd intubation 12/04 ; 1st intubation 11/20-extubated 11/24 2. s/p ventricular arrhythmias, ?? 2dary to alkalosis 3. Sacchromyces cerevisiae Fungemia 4. UTI 5. C diff 6. Anemia of Chronic Disease with coagulopathy 7. GI/DVT prophylaxis 1. remains intubated, weaning protocol, Meropenem, ID on board:Dr. Masters- will follow recommendations 2. stable, EKG 12/08/16: sinus rhythm with premature supraventricular complexes with occasional PVC's, prolonged QT, Cardiology-Dr. Barnes 3. BCx + 12/04/16, ID on board, continue with Voriconazole 4. UA with large leukocyte esterase, occult bacteria 12/14; no replaced, f/u UCx 5.+ 11/20; (2 negative C diff 11/24, 11/21), 3rd C diff ordered, ID on board, continue with metronidazole 6. H/H stable s/p 1 unit pRBC's transfused 12/14/16, FOBT + 11/21/16 7. Protonix 40mg IV QD/ SCD's; pt will need central line - Date & Time Date: 12/15/16 Time: 08:00 <Sammy Paez - Last Filed: 12/15/16 16:06> CCU Objective - Patient Studies Lab Studies: Microbiology Studies 12/10/16 18:30 Blood Culture - Preliminary Blood-Venous NO GROWTH AFTER 4 DAYS 12/10/16 18:30 Blood Culture - Preliminary Blood-Venous NO GROWTH AFTER 4 DAYS 12/13/16 16:45 Blood Culture - Preliminary Blood-Venous NO GROWTH AFTER 24 HOURS 12/13/16 16:45 Blood Culture - Preliminary Blood-Venous NO GROWTH AFTER 24 HOURS Lab Studies 12/15/16 12/15/16 12/15/16 Range/Units 11:31 05:09 04:30 WBC (4.8-10.8) K/uL RBC (4.40-5.90) Mil/uL Hgb (12.0-18.0) g/dL Hct (35.0-51.0) % MCV (80.0-94.0) fl MCH (27.0-31.0) pg MCHC (33.0-37.0) g/dL RDW (11.5-14.5) % Plt Count (130-400) K/uL MPV (7.2-11.7) fl Neut % (Auto) (50.0-75.0) % Lymph % (Auto) (20.0-40.0) % Coffee % (Auto) (0.0-10.0) % Eos % (Auto) (0.0-4.0) % Baso % (Auto) (0.0-2.0) % Neut # (1.8-7.0) K/uL Lymph # (1.0-4.3) K/uL Coffee # (0.0-0.8) K/uL Eos # (0.0-0.7) K/uL Baso # (0.0-0.2) K/uL pCO2 (35-45) mm/Hg pO2 (80-100) mm/Hg HCO3 (21-28) mmol/L ABG pH (7.35-7.45) ABG Total CO2 (22-28) mmol/L ABG O2 Saturation (95-98) % ABG O2 Content (15-23) ML/dL ABG Base Excess (-2.0-3.0) mmol/L ABG Hemoglobin (11.7-17.4) g/dL ABG Carboxyhemoglobin (0.5-1.5) % POC ABG HHb (Measured) (0.0-5.0) % ABG Methemoglobin (0.0-3.0) % ABG O2 Capacity (16-24) mL/dL Torres Test A-a O2 Difference mm/Hg Hgb O2 Saturation (95.0-98.0) % Mechanical Rate FiO2 % Tidal Volume PEEP Sodium 144 (132-148) mmol/l Potassium 4.2 (3.6-5.0) MMOL/L Chloride 109 H (98-107) mmol/L Carbon Dioxide 26 (22-30) mmol/L Anion Gap 13 (10-20) BUN 31 H (9-20) mg/dl Creatinine 0.9 (0.8-1.5) mg/dL Est GFR ( Amer) > 60 Est GFR (Non-Af Amer) > 60 POC Glucose (mg/dL) 106 176 H (65-110) mg/dL Random Glucose 124 H (75-110) mg/dL Calcium 7.7 L (8.4-10.2) mg/dL Total Bilirubin 0.3 (0.2-1.3) mg/dl AST 29 (17-59) U/L ALT 16 L D (21-72) U/L Alkaline Phosphatase 617 H (38-126) U/L Total Protein 6.7 (6.3-8.2) G/DL Albumin 2.3 L (3.5-5.0) g/dL Globulin 4.4 H (2.2-3.9) gm/dL Albumin/Globulin Ratio 0.5 L (1.0-2.1) Urine Color (YELLOW) Urine Clarity (Clear) Urine pH (5.0-8.0) Ur Specific [place] (1.003-1.030) Urine Protein (NEGATIVE) mg/dL Urine Glucose (UA) (Normal) mg/dL Urine Ketones (NEGATIVE) mg/dL Urine Blood (NEGATIVE) Urine Nitrate (NEGATIVE) Urine Bilirubin (NEGATIVE) Urine Urobilinogen (0.2-1.0) mg/dL Ur Leukocyte Esterase (Negative) Jac/uL Urine RBC (Auto) (0-3) /hpf Urine Microscopic WBC (0-5) /hpf Urine Bacteria (<OCC) Blood Type Antibody Screen Crossmatch BBK History Checked 12/15/16 12/15/16 12/14/16 Range/Units 04:30 04:09 21:37 WBC 7.5 (4.8-10.8) K/uL RBC 3.10 L (4.40-5.90) Mil/uL Hgb 9.2 L (12.0-18.0) g/dL Hct 28.3 L (35.0-51.0) % MCV 91.3 (80.0-94.0) fl MCH 29.6 (27.0-31.0) pg MCHC 32.4 L (33.0-37.0) g/dL RDW 17.3 H (11.5-14.5) % Plt Count 254 (130-400) K/uL MPV 9.8 (7.2-11.7) fl Neut % (Auto) 59.2 (50.0-75.0) % Lymph % (Auto) 28.2 (20.0-40.0) % Coffee % (Auto) 8.2 (0.0-10.0) % Eos % (Auto) 3.4 (0.0-4.0) % Baso % (Auto) 1.0 (0.0-2.0) % Neut # 4.4 (1.8-7.0) K/uL Lymph # 2.1 (1.0-4.3) K/uL Coffee # 0.6 (0.0-0.8) K/uL Eos # 0.3 (0.0-0.7) K/uL Baso # 0.1 (0.0-0.2) K/uL pCO2 36 (35-45) mm/Hg pO2 103 H (80-100) mm/Hg HCO3 32.8 H (21-28) mmol/L ABG pH 7.57 H (7.35-7.45) ABG Total CO2 34.1 H (22-28) mmol/L ABG O2 Saturation 99.5 H (95-98) % ABG O2 Content 9.3 L (15-23) ML/dL ABG Base Excess 10.1 H (-2.0-3.0) mmol/L ABG Hemoglobin 6.7 L (11.7-17.4) g/dL ABG Carboxyhemoglobin 1.1 (0.5-1.5) % POC ABG HHb (Measured) 0.5 (0.0-5.0) % ABG Methemoglobin 1.8 (0.0-3.0) % ABG O2 Capacity 9.3 L (16-24) mL/dL Torres Test Yes A-a O2 Difference 102.0 mm/Hg Hgb O2 Saturation 96.5 (95.0-98.0) % Mechanical Rate 10 FiO2 35.0 % Tidal Volume 450 PEEP 5 Sodium (132-148) mmol/l Potassium (3.6-5.0) MMOL/L Chloride (98-107) mmol/L Carbon Dioxide (22-30) mmol/L Anion Gap (10-20) BUN (9-20) mg/dl Creatinine (0.8-1.5) mg/dL Est GFR ( Amer) Est GFR (Non-Af Amer) POC Glucose (mg/dL) 142 H (65-110) mg/dL Random Glucose (75-110) mg/dL Calcium (8.4-10.2) mg/dL Total Bilirubin (0.2-1.3) mg/dl AST (17-59) U/L ALT (21-72) U/L Alkaline Phosphatase (38-126) U/L Total Protein (6.3-8.2) G/DL Albumin (3.5-5.0) g/dL Globulin (2.2-3.9) gm/dL Albumin/Globulin Ratio (1.0-2.1) Urine Color (YELLOW) Urine Clarity (Clear) Urine pH (5.0-8.0) Ur Specific [place] (1.003-1.030) Urine Protein (NEGATIVE) mg/dL Urine Glucose (UA) (Normal) mg/dL Urine Ketones (NEGATIVE) mg/dL Urine Blood (NEGATIVE) Urine Nitrate (NEGATIVE) Urine Bilirubin (NEGATIVE) Urine Urobilinogen (0.2-1.0) mg/dL Ur Leukocyte Esterase (Negative) Jac/uL Urine RBC (Auto) (0-3) /hpf Urine Microscopic WBC (0-5) /hpf Urine Bacteria (<OCC) Blood Type Antibody Screen Crossmatch BBK History Checked 12/14/16 12/14/16 12/14/16 Range/Units 17:45 16:35 10:20 WBC (4.8-10.8) K/uL RBC (4.40-5.90) Mil/uL Hgb (12.0-18.0) g/dL Hct (35.0-51.0) % MCV (80.0-94.0) fl MCH (27.0-31.0) pg MCHC (33.0-37.0) g/dL RDW (11.5-14.5) % Plt Count (130-400) K/uL MPV (7.2-11.7) fl Neut % (Auto) (50.0-75.0) % Lymph % (Auto) (20.0-40.0) % Coffee % (Auto) (0.0-10.0) % Eos % (Auto) (0.0-4.0) % Baso % (Auto) (0.0-2.0) % Neut # (1.8-7.0) K/uL Lymph # (1.0-4.3) K/uL Coffee # (0.0-0.8) K/uL Eos # (0.0-0.7) K/uL Baso # (0.0-0.2) K/uL pCO2 (35-45) mm/Hg pO2 (80-100) mm/Hg HCO3 (21-28) mmol/L ABG pH (7.35-7.45) ABG Total CO2 (22-28) mmol/L ABG O2 Saturation (95-98) % ABG O2 Content (15-23) ML/dL ABG Base Excess (-2.0-3.0) mmol/L ABG Hemoglobin (11.7-17.4) g/dL ABG Carboxyhemoglobin (0.5-1.5) % POC ABG HHb (Measured) (0.0-5.0) % ABG Methemoglobin (0.0-3.0) % ABG O2 Capacity (16-24) mL/dL Torres Test A-a O2 Difference mm/Hg Hgb O2 Saturation (95.0-98.0) % Mechanical Rate FiO2 % Tidal Volume PEEP Sodium (132-148) mmol/l Potassium (3.6-5.0) MMOL/L Chloride (98-107) mmol/L Carbon Dioxide (22-30) mmol/L Anion Gap (10-20) BUN (9-20) mg/dl Creatinine (0.8-1.5) mg/dL Est GFR ( Amer) Est GFR (Non-Af Amer) POC Glucose (mg/dL) 141 H (65-110) mg/dL Random Glucose (75-110) mg/dL Calcium (8.4-10.2) mg/dL Total Bilirubin (0.2-1.3) mg/dl AST (17-59) U/L ALT (21-72) U/L Alkaline Phosphatase (38-126) U/L Total Protein (6.3-8.2) G/DL Albumin (3.5-5.0) g/dL Globulin (2.2-3.9) gm/dL Albumin/Globulin Ratio (1.0-2.1) Urine Color Yellow (YELLOW) Urine Clarity Slighty-cloudy (Clear) Urine pH 6.0 (5.0-8.0) Ur Specific [place] 1.012 (1.003-1.030) Urine Protein Negative (NEGATIVE) mg/dL Urine Glucose (UA) Neg (Normal) mg/dL Urine Ketones Negative (NEGATIVE) mg/dL Urine Blood Moderate (NEGATIVE) Urine Nitrate Negative (NEGATIVE) Urine Bilirubin Negative (NEGATIVE) Urine Urobilinogen 0.2-1.0 (0.2-1.0) mg/dL Ur Leukocyte Esterase Large (Negative) Jac/uL Urine RBC (Auto) 22 H (0-3) /hpf Urine Microscopic WBC 67 H (0-5) /hpf Urine Bacteria Occ H (<OCC) Blood Type A POSITIVE Antibody Screen Negative Crossmatch See Detail BBK History Checked Patient has bt Laboratory Results - last 24 hr 12/14/16 12/14/16 12/14/16 10:20 16:35 17:45 WBC RBC Hgb Hct MCV MCH MCHC RDW Plt Count MPV Neut % (Auto) Lymph % (Auto) [place] % (Auto) Eos % (Auto) Baso % (Auto) Neut # Lymph # [place] # Eos # Baso # pCO2 pO2 HCO3 ABG pH ABG Total CO2 ABG O2 Saturation ABG O2 Content ABG Base Excess ABG Hemoglobin ABG Carboxyhemoglobin POC ABG HHb (Measured) ABG Methemoglobin ABG O2 Capacity Torres Test A-a O2 Difference Hgb O2 Saturation Mechanical Rate FiO2 Tidal Volume PEEP Sodium Potassium Chloride Carbon Dioxide Anion Gap BUN Creatinine Est GFR ( Amer) Est GFR (Non-Af Amer) POC Glucose (mg/dL) 141 H Random Glucose Calcium Total Bilirubin AST ALT Alkaline Phosphatase Total Protein Albumin Globulin Albumin/Globulin Ratio Urine Color Yellow Urine Clarity Slighty-cloudy Urine pH 6.0 Ur Specific [place] 1.012 Urine Protein Negative Urine Glucose (UA) Neg Urine Ketones Negative Urine Blood Moderate Urine Nitrate Negative Urine Bilirubin Negative Urine Urobilinogen 0.2-1.0 Ur Leukocyte Esterase Large Urine RBC (Auto) 22 H Urine Microscopic WBC 67 H Urine Bacteria Occ H Blood Type A POSITIVE Antibody Screen Negative Crossmatch See Detail BBK History Checked Patient has bt 12/14/16 12/15/16 12/15/16 21:37 04:09 04:30 WBC 7.5 RBC 3.10 L Hgb 9.2 L Hct 28.3 L MCV 91.3 MCH 29.6 MCHC 32.4 L RDW 17.3 H Plt Count 254 MPV 9.8 Neut % (Auto) 59.2 Lymph % (Auto) 28.2 Coffee % (Auto) 8.2 Eos % (Auto) 3.4 Baso % (Auto) 1.0 Neut # 4.4 Lymph # 2.1 Coffee # 0.6 Eos # 0.3 Baso # 0.1 pCO2 36 pO2 103 H HCO3 32.8 H ABG pH 7.57 H ABG Total CO2 34.1 H ABG O2 Saturation 99.5 H ABG O2 Content 9.3 L ABG Base Excess 10.1 H ABG Hemoglobin 6.7 L ABG Carboxyhemoglobin 1.1 POC ABG HHb (Measured) 0.5 ABG Methemoglobin 1.8 ABG O2 Capacity 9.3 L Torres Test Yes A-a O2 Difference 102.0 Hgb O2 Saturation 96.5 Mechanical Rate 10 FiO2 35.0 Tidal Volume 450 PEEP 5 Sodium Potassium Chloride Carbon Dioxide Anion Gap BUN Creatinine Est GFR ( Amer) Est GFR (Non-Af Amer) POC Glucose (mg/dL) 142 H Random Glucose Calcium Total Bilirubin AST ALT Alkaline Phosphatase Total Protein Albumin Globulin Albumin/Globulin Ratio Urine Color Urine Clarity Urine pH Ur Specific [place] Urine Protein Urine Glucose (UA) Urine Ketones Urine Blood Urine Nitrate Urine Bilirubin Urine Urobilinogen Ur Leukocyte Esterase Urine RBC (Auto) Urine Microscopic WBC Urine Bacteria Blood Type Antibody Screen Crossmatch BBK History Checked 12/15/16 12/15/16 12/15/16 04:30 05:09 11:31 WBC RBC Hgb Hct MCV MCH MCHC RDW Plt Count MPV Neut % (Auto) Lymph % (Auto) [place] % (Auto) Eos % (Auto) Baso % (Auto) Neut # Lymph # [place] # Eos # Baso # pCO2 pO2 HCO3 ABG pH ABG Total CO2 ABG O2 Saturation ABG O2 Content ABG Base Excess ABG Hemoglobin ABG Carboxyhemoglobin POC ABG HHb (Measured) ABG Methemoglobin ABG O2 Capacity Torres Test A-a O2 Difference Hgb O2 Saturation Mechanical Rate FiO2 Tidal Volume PEEP Sodium 144 Potassium 4.2 Chloride 109 H Carbon Dioxide 26 Anion Gap 13 BUN 31 H Creatinine 0.9 Est GFR ( Amer) > 60 Est GFR (Non-Af Amer) > 60 POC Glucose (mg/dL) 176 H 106 Random Glucose 124 H Calcium 7.7 L Total Bilirubin 0.3 AST 29 ALT 16 L D Alkaline Phosphatase 617 H Total Protein 6.7 Albumin 2.3 L Globulin 4.4 H Albumin/Globulin Ratio 0.5 L Urine Color Urine Clarity Urine pH Ur Specific [place] Urine Protein Urine Glucose (UA) Urine Ketones Urine Blood Urine Nitrate Urine Bilirubin Urine Urobilinogen Ur Leukocyte Esterase Urine RBC (Auto) Urine Microscopic WBC Urine Bacteria Blood Type Antibody Screen Crossmatch BBK History Checked Assessment/Plan - Assessment and Plan (Free Text) Plan: Attestation: Patient seen and examined at the bedside with Resident Dr. Salas Low; and I agree with her outline of plans and management as documented below and discussed on AM rounds today, December 15, 2016. Any exceptions or additions are listed in my personal note that follows and reflects my review of all applicable clinical data, and participation in the care of the patient throughout the day in ICU.
--- NOTE | 2016-12-15 11:11 | CP.PCM.PN ---
Subjective - Date & Time of Evaluation Date of Evaluation: 12/15/16 Time of Evaluation: 11:11 - Subjective Subjective: ID Note- Pt. seen and examined today in ICU. remains intubated but slightly more awake today. no replaced yesterday after ua and urine cx collected. Objective - Vital Signs/Intake and Output Vital Signs (last 24 hours): Temp Pulse Resp BP Pulse Ox 99.9 F H 103 H 21 123/64 100 12/15/16 08:00 12/15/16 08:00 12/15/16 08:00 12/15/16 09:31 12/15/16 08:00 Intake and Output: 12/15/16 12/15/16 06:59 18:59 Intake Total 1380 Output Total 800 Balance 580 - Medications Medications: Current Medications Acetaminophen (Tylenol 650mg/20.3ml Solution Ud) 650 mg PO Q6 PRN PRN Reason: fever Last Admin: 12/14/16 04:50 Dose: 650 mg Albuterol/Ipratropium (Duoneb 3 Mg/0.5 Mg (3 Ml) Ud) 3 ml INH RQID [facility] Last Admin: 12/15/16 08:31 Dose: 3 ml Collagenase (Santyl) 1 applic TOP DAILY LRARY Last Admin: 12/15/16 09:34 Dose: 1 applic Furosemide (Lasix) 40 mg IV DAILY [facility] Last Admin: 12/15/16 09:31 Dose: 40 mg Voriconazole 300 mg/ Sodium (Chloride) 250 mls @ 125 mls/hr IVPB Q12 LARRY Last Admin: 12/14/16 21:50 Dose: 125 mls/hr Meropenem 1 gm/ Sodium (Chloride) 100 mls @ 100 mls/hr IVPB Q12 [facility] Last Admin: 12/15/16 09:32 Dose: 100 mls/hr Insulin Human Lispro (Humalog) 0 units SC Q6 LARRY PRN Reason: Protocol Last Admin: 12/15/16 05:15 Dose: 1 unit Metronidazole (Flagyl) 500 mg PO Q8 [facility] Last Admin: 12/15/16 09:31 Dose: 500 mg Nystatin (Nystop Topical Powder) 1 applic TOP TID [facility] Last Admin: 12/15/16 09:34 Dose: 1 pow Pantoprazole Sodium (Protonix Inj) 40 mg IVP DAILY [facility] Last Admin: 12/15/16 09:37 Dose: 40 mg - Labs Labs: - Additional Findings Additional findings: - Constitutional Appears: Chronically Ill - ENT Exam Additional comments: ET tube in place has OGT as well - Neck Exam Additional comments: supple - Respiratory Exam Additional comments: intubated and on the vent - Cardiovascular Exam Cardiovascular Exam: RRR, +S1, +S2 - GI/Abdominal Exam GI & Abdominal Exam: Soft, Normal Bowel Sounds Additional comments: ND, NT - Extremities Exam Additional comments: dry b/l heel ulcers, no discharge - Neurological Exam Additional comments: intubated , more awake today Laboratory Results - last 72 hr 12/10/16 12/12/16 12/12/16 18:30 16:38 21:29 WBC RBC Hgb Hct MCV MCH MCHC RDW Plt Count MPV Neut % (Auto) Lymph % (Auto) [place] % (Auto) Eos % (Auto) Baso % (Auto) Neut # Lymph # [place] # Eos # Baso # pCO2 pO2 HCO3 ABG pH ABG Total CO2 ABG O2 Saturation ABG O2 Content ABG Base Excess ABG Hemoglobin ABG Carboxyhemoglobin POC ABG HHb (Measured) ABG Methemoglobin ABG O2 Capacity Torres Test A-a O2 Difference Hgb O2 Saturation Vent Mode Mechanical Rate FiO2 Tidal Volume PEEP Blood Gas Comments Sodium Potassium Chloride Carbon Dioxide Anion Gap BUN Creatinine Est GFR ( Amer) Est GFR (Non-Af Amer) POC Glucose (mg/dL) 125 H 152 H Random Glucose Calcium Total Bilirubin AST ALT Alkaline Phosphatase Alk Phos Iso-Intestine 0 L Alk Phos Iso-Bone 14 L Alk Phos Iso-Liver 34 Alk Phos Iso-Placenta 0 Alk Phos Iso-Renal 52 H Total Protein Albumin Globulin Albumin/Globulin Ratio Urine Color Urine Clarity Urine pH Ur Specific [place] Urine Protein Urine Glucose (UA) Urine Ketones Urine Blood Urine Nitrate Urine Bilirubin Urine Urobilinogen Ur Leukocyte Esterase Urine RBC (Auto) Urine Microscopic WBC Urine Bacteria Blood Type Antibody Screen Crossmatch BBK History Checked 12/13/16 12/13/16 12/13/16 04:16 06:10 06:10 WBC 7.1 RBC 2.46 L Hgb 7.4 L Hct 22.7 L MCV 92.0 MCH 30.2 MCHC 32.8 L RDW 16.9 H Plt Count 227 MPV Neut % (Auto) Lymph % (Auto) [place] % (Auto) Eos % (Auto) Baso % (Auto) Neut # Lymph # [place] # Eos # Baso # pCO2 36 pO2 144 H HCO3 31.0 H ABG pH 7.54 H ABG Total CO2 31.9 H ABG O2 Saturation 99.9 H ABG O2 Content 11.4 L ABG Base Excess 7.7 H ABG Hemoglobin 8.1 L ABG Carboxyhemoglobin 1.0 POC ABG HHb (Measured) 0.1 ABG Methemoglobin 1.9 ABG O2 Capacity 11.4 L Torres Test Yes A-a O2 Difference 96.0 Hgb O2 Saturation 97.0 Vent Mode Prvc ac Mechanical Rate 12 FiO2 40.0 Tidal Volume 450 PEEP 5 Blood Gas Comments Sodium 142 Potassium 3.9 Chloride 111 H Carbon Dioxide 27 Anion Gap 8 L BUN 28 H Creatinine 0.9 Est GFR ( Amer) > 60 Est GFR (Non-Af Amer) > 60 POC Glucose (mg/dL) Random Glucose 93 Calcium 7.6 L Total Bilirubin AST ALT Alkaline Phosphatase Alk Phos Iso-Intestine Alk Phos Iso-Bone Alk Phos Iso-Liver Alk Phos Iso-Placenta Alk Phos Iso-Renal Total Protein Albumin Globulin Albumin/Globulin Ratio Urine Color Urine Clarity Urine pH Ur Specific [place] Urine Protein Urine Glucose (UA) Urine Ketones Urine Blood Urine Nitrate Urine Bilirubin Urine Urobilinogen Ur Leukocyte Esterase Urine RBC (Auto) Urine Microscopic WBC Urine Bacteria Blood Type Antibody Screen Crossmatch BBK History Checked 12/13/16 12/13/16 12/13/16 06:26 11:11 16:18 WBC RBC Hgb Hct MCV MCH MCHC RDW Plt Count MPV Neut % (Auto) Lymph % (Auto) [place] % (Auto) Eos % (Auto) Baso % (Auto) Neut # Lymph # [place] # Eos # Baso # pCO2 pO2 HCO3 ABG pH ABG Total CO2 ABG O2 Saturation ABG O2 Content ABG Base Excess ABG Hemoglobin ABG Carboxyhemoglobin POC ABG HHb (Measured) ABG Methemoglobin ABG O2 Capacity Torres Test A-a O2 Difference Hgb O2 Saturation Vent Mode Mechanical Rate FiO2 Tidal Volume PEEP Blood Gas Comments Sodium Potassium Chloride Carbon Dioxide Anion Gap BUN Creatinine Est GFR ( Amer) Est GFR (Non-Af Amer) POC Glucose (mg/dL) 102 103 153 H Random Glucose Calcium Total Bilirubin AST ALT Alkaline Phosphatase Alk Phos Iso-Intestine Alk Phos Iso-Bone Alk Phos Iso-Liver Alk Phos Iso-Placenta Alk Phos Iso-Renal Total Protein Albumin Globulin Albumin/Globulin Ratio Urine Color Urine Clarity Urine pH Ur Specific [place] Urine Protein Urine Glucose (UA) Urine Ketones Urine Blood Urine Nitrate Urine Bilirubin Urine Urobilinogen Ur Leukocyte Esterase Urine RBC (Auto) Urine Microscopic WBC Urine Bacteria Blood Type Antibody Screen Crossmatch BBK History Checked 12/13/16 12/14/16 12/14/16 21:14 04:35 04:35 WBC 6.8 RBC 2.50 L Hgb 7.5 L Hct 23.2 L MCV 92.8 MCH 30.1 MCHC 32.4 L RDW 16.7 H Plt Count 243 MPV Neut % (Auto) Lymph % (Auto) [place] % (Auto) Eos % (Auto) Baso % (Auto) Neut # Lymph # [place] # Eos # Baso # pCO2 pO2 HCO3 ABG pH ABG Total CO2 ABG O2 Saturation ABG O2 Content ABG Base Excess ABG Hemoglobin ABG Carboxyhemoglobin POC ABG HHb (Measured) ABG Methemoglobin ABG O2 Capacity Torres Test A-a O2 Difference Hgb O2 Saturation Vent Mode Mechanical Rate FiO2 Tidal Volume PEEP Blood Gas Comments Sodium 142 Potassium 3.9 Chloride 109 H Carbon Dioxide 26 Anion Gap 11 BUN 30 H Creatinine 0.8 Est GFR ( Amer) > 60 Est GFR (Non-Af Amer) > 60 POC Glucose (mg/dL) 115 H Random Glucose 102 Calcium 7.5 L Total Bilirubin AST ALT Alkaline Phosphatase Alk Phos Iso-Intestine Alk Phos Iso-Bone Alk Phos Iso-Liver Alk Phos Iso-Placenta Alk Phos Iso-Renal Total Protein Albumin Globulin Albumin/Globulin Ratio Urine Color Urine Clarity Urine pH Ur Specific [place] Urine Protein Urine Glucose (UA) Urine Ketones Urine Blood Urine Nitrate Urine Bilirubin Urine Urobilinogen Ur Leukocyte Esterase Urine RBC (Auto) Urine Microscopic WBC Urine Bacteria Blood Type Antibody Screen Crossmatch BBK History Checked 12/14/16 12/14/16 12/14/16 04:50 05:05 10:08 WBC RBC Hgb Hct MCV MCH MCHC RDW Plt Count MPV Neut % (Auto) Lymph % (Auto) [place] % (Auto) Eos % (Auto) Baso % (Auto) Neut # Lymph # [place] # Eos # Baso # pCO2 34 L pO2 112 H HCO3 32.3 H ABG pH 7.58 H ABG Total CO2 32.9 H ABG O2 Saturation 100.6 H ABG O2 Content 11.0 L ABG Base Excess 9.4 H ABG Hemoglobin 7.9 L ABG Carboxyhemoglobin 2.0 H POC ABG HHb (Measured) -0.6 L ABG Methemoglobin 1.7 ABG O2 Capacity 10.9 L Torres Test Yes A-a O2 Difference 95.0 Hgb O2 Saturation 96.9 Vent Mode A/c Mechanical Rate 10 FiO2 35.0 Tidal Volume 450 PEEP 5 Blood Gas Comments abg was done by ravi Sodium Potassium Chloride Carbon Dioxide Anion Gap BUN Creatinine Est GFR ( Amer) Est GFR (Non-Af Amer) POC Glucose (mg/dL) 104 130 H Random Glucose Calcium Total Bilirubin AST ALT Alkaline Phosphatase Alk Phos Iso-Intestine Alk Phos Iso-Bone Alk Phos Iso-Liver Alk Phos Iso-Placenta Alk Phos Iso-Renal Total Protein Albumin Globulin Albumin/Globulin Ratio Urine Color Urine Clarity Urine pH Ur Specific [place] Urine Protein Urine Glucose (UA) Urine Ketones Urine Blood Urine Nitrate Urine Bilirubin Urine Urobilinogen Ur Leukocyte Esterase Urine RBC (Auto) Urine Microscopic WBC Urine Bacteria Blood Type Antibody Screen Crossmatch BBK History Checked 12/14/16 12/14/16 12/14/16 10:20 16:35 17:45 WBC RBC Hgb Hct MCV MCH MCHC RDW Plt Count MPV Neut % (Auto) Lymph % (Auto) [place] % (Auto) Eos % (Auto) Baso % (Auto) Neut # Lymph # [place] # Eos # Baso # pCO2 pO2 HCO3 ABG pH ABG Total CO2 ABG O2 Saturation ABG O2 Content ABG Base Excess ABG Hemoglobin ABG Carboxyhemoglobin POC ABG HHb (Measured) ABG Methemoglobin ABG O2 Capacity Torres Test A-a O2 Difference Hgb O2 Saturation Vent Mode Mechanical Rate FiO2 Tidal Volume PEEP Blood Gas Comments Sodium Potassium Chloride Carbon Dioxide Anion Gap BUN Creatinine Est GFR ( Amer) Est GFR (Non-Af Amer) POC Glucose (mg/dL) 141 H Random Glucose Calcium Total Bilirubin AST ALT Alkaline Phosphatase Alk Phos Iso-Intestine Alk Phos Iso-Bone Alk Phos Iso-Liver Alk Phos Iso-Placenta Alk Phos Iso-Renal Total Protein Albumin Globulin Albumin/Globulin Ratio Urine Color Yellow Urine Clarity Slighty-cloudy Urine pH 6.0 Ur Specific [place] 1.012 Urine Protein Negative Urine Glucose (UA) Neg Urine Ketones Negative Urine Blood Moderate Urine Nitrate Negative Urine Bilirubin Negative Urine Urobilinogen 0.2-1.0 Ur Leukocyte Esterase Large Urine RBC (Auto) 22 H Urine Microscopic WBC 67 H Urine Bacteria Occ H Blood Type A POSITIVE Antibody Screen Negative Crossmatch See Detail BBK History Checked Patient has bt 12/14/16 12/15/16 12/15/16 21:37 04:09 04:30 WBC 7.5 RBC 3.10 L Hgb 9.2 L Hct 28.3 L MCV 91.3 MCH 29.6 MCHC 32.4 L RDW 17.3 H Plt Count 254 MPV 9.8 Neut % (Auto) 59.2 Lymph % (Auto) 28.2 [place] % (Auto) 8.2 Eos % (Auto) 3.4 Baso % (Auto) 1.0 Neut # 4.4 Lymph # 2.1 [place] # 0.6 Eos # 0.3 Baso # 0.1 pCO2 36 pO2 103 H HCO3 32.8 H ABG pH 7.57 H ABG Total CO2 34.1 H ABG O2 Saturation 99.5 H ABG O2 Content 9.3 L ABG Base Excess 10.1 H ABG Hemoglobin 6.7 L ABG Carboxyhemoglobin 1.1 POC ABG HHb (Measured) 0.5 ABG Methemoglobin 1.8 ABG O2 Capacity 9.3 L Torres Test Yes A-a O2 Difference 102.0 Hgb O2 Saturation 96.5 Vent Mode Mechanical Rate 10 FiO2 35.0 Tidal Volume 450 PEEP 5 Blood Gas Comments Sodium Potassium Chloride Carbon Dioxide Anion Gap BUN Creatinine Est GFR ( Amer) Est GFR (Non-Af Amer) POC Glucose (mg/dL) 142 H Random Glucose Calcium Total Bilirubin AST ALT Alkaline Phosphatase Alk Phos Iso-Intestine Alk Phos Iso-Bone Alk Phos Iso-Liver Alk Phos Iso-Placenta Alk Phos Iso-Renal Total Protein Albumin Globulin Albumin/Globulin Ratio Urine Color Urine Clarity Urine pH Ur Specific [place] Urine Protein Urine Glucose (UA) Urine Ketones Urine Blood Urine Nitrate Urine Bilirubin Urine Urobilinogen Ur Leukocyte Esterase Urine RBC (Auto) Urine Microscopic WBC Urine Bacteria Blood Type Antibody Screen Crossmatch BBK History Checked 12/15/16 12/15/16 12/15/16 04:30 05:09 11:31 WBC RBC Hgb Hct MCV MCH MCHC RDW Plt Count MPV Neut % (Auto) Lymph % (Auto) [place] % (Auto) Eos % (Auto) Baso % (Auto) Neut # Lymph # [place] # Eos # Baso # pCO2 pO2 HCO3 ABG pH ABG Total CO2 ABG O2 Saturation ABG O2 Content ABG Base Excess ABG Hemoglobin ABG Carboxyhemoglobin POC ABG HHb (Measured) ABG Methemoglobin ABG O2 Capacity Torres Test A-a O2 Difference Hgb O2 Saturation Vent Mode Mechanical Rate FiO2 Tidal Volume PEEP Blood Gas Comments Sodium 144 Potassium 4.2 Chloride 109 H Carbon Dioxide 26 Anion Gap 13 BUN 31 H Creatinine 0.9 Est GFR ( Amer) > 60 Est GFR (Non-Af Amer) > 60 POC Glucose (mg/dL) 176 H 106 Random Glucose 124 H Calcium 7.7 L Total Bilirubin 0.3 AST 29 ALT 16 L D Alkaline Phosphatase 617 H Alk Phos Iso-Intestine Alk Phos Iso-Bone Alk Phos Iso-Liver Alk Phos Iso-Placenta Alk Phos Iso-Renal Total Protein 6.7 Albumin 2.3 L Globulin 4.4 H Albumin/Globulin Ratio 0.5 L Urine Color Urine Clarity Urine pH Ur Specific [place] Urine Protein Urine Glucose (UA) Urine Ketones Urine Blood Urine Nitrate Urine Bilirubin Urine Urobilinogen Ur Leukocyte Esterase Urine RBC (Auto) Urine Microscopic WBC Urine Bacteria Blood Type Antibody Screen Crossmatch BBK History Checked Microbiology 12/10/16 18:30 Blood-Venous Blood Culture - Preliminary NO GROWTH AFTER 4 DAYS 12/10/16 18:30 Blood-Venous Blood Culture - Preliminary NO GROWTH AFTER 4 DAYS 12/13/16 16:45 Blood-Venous Blood Culture - Preliminary NO GROWTH AFTER 24 HOURS 12/13/16 16:45 Blood-Venous Blood Culture - Preliminary NO GROWTH AFTER 24 HOURS 12/06/16 17:30 Blood-Venous Blood Culture - Final NO GROWTH AFTER 5 DAYS 12/06/16 17:30 Blood-Venous Gram Stain - Final TEST NOT PERFORMED 12/06/16 17:50 Blood-Venous Blood Culture - Final NO GROWTH AFTER 5 DAYS 12/06/16 17:50 Blood-Venous Gram Stain - Final TEST NOT PERFORMED 12/04/16 00:10 Blood-Venous Blood Culture - Final Saccharomyces Cerevisiae 12/04/16 00:10 Blood-Venous Gram Stain - Final 12/04/16 00:10 Blood-Venous S.aureus & Coag-Neg Staph PNA FISH - Final 12/04/16 00:10 Blood-Venous Blood Culture - Final Saccharomyces Cerevisiae 12/04/16 00:10 Blood-Venous Gram Stain - Final 12/04/16 14:00 Blood S.aureus & Coag-Neg Staph PNA FISH - Final 12/04/16 14:00 Blood Blood Culture - Final Saccharomyces Cerevisiae 12/04/16 14:00 Blood Gram Stain - Final 12/04/16 18:00 Blood-Thru Central Line S.aureus & Coag-Neg Staph PNA FISH - Final 12/04/16 18:00 Blood-Thru Central Line Blood Culture - Final Saccharomyces Cerevisiae 12/04/16 18:00 Blood-Thru Central Line Gram Stain - Final 12/04/16 16:50 Urine,No Urine Culture - Final Yeast Species 12/04/16 17:00 Trachasp Sputum Culture - Final NORMAL ORAL ROSEMARY 12/04/16 18:00 Naris MRSA Culture (Admit) - Final MRSA DETECTED 12/04/16 02:05 Urine,No Urine Culture - Final Yeast Species 11/26/16 20:01 Nose MRSA Culture (Admit) - Final MRSA NOT DETECTED 11/20/16 10:00 Blood-Venous Blood Culture - Final NO GROWTH AFTER 5 DAYS 11/20/16 10:00 Blood-Venous Gram Stain - Final TEST NOT PERFORMED 11/21/16 10:00 Trachasp Gram Stain - Final 11/21/16 10:00 Trachasp Sputum Culture - Final Klebsiella Pneumoniae Ssp Pneu 11/20/16 15:00 Nose MRSA Culture (Admit) - Final MRSA NOT DETECTED 11/20/16 01:57 Urine,No Urine Culture - Final No Growth (<1,000 CFU/ML) Accession No. : [id number] Patient Name / ID : GRACE ANTON / [id number] Exam Date : 12/15/2016 07:16:15 ( Approved ) Study Comment : Sex / Age : M / [id number] Creator : Rod Khan MD Dictator : Rod Khan MD Business Intelligence Analyst : Manager Business Banking : Rod Khan MD Approver2 : Report Date : 12/15/2016 12:32:02 My Comment : HISTORY: Intubated. Portable study 07:20. COMPARISON: 12/14/2016 at 07:15. Multiple serial examinations preceding the most recent study: FINDINGS: LUNGS: Stable multifocal infiltrates. PLEURA: No significant pleural effusion identified, no pneumothorax apparent. CARDIOVASCULAR: No significant interval change compared to the prior examination(s). OSSEOUS STRUCTURES: No significant abnormalities. VISUALIZED UPPER ABDOMEN: Normal. OTHER FINDINGS: Stable position of support apparatus including nasogastric tube and endotracheal tube. IMPRESSION: No significant interval change compared to the prior examination(s). 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 repeat stool c.diff- negative tox and AG cxr-Right effusion and ? infiltrate as per report repeat blood cx x 2 from 12/06/2016- negative x 2 repeat blood cx from 12/10/2016- negative x 2 repeat blood cx [facility] 12/13/2016-neg x 2 pneumonia/resp distress fungemia is on antifungal medication, repeat bloodcx are all negative c.diff - resolved fungurea Plan- continue with meropenem for HAP , day #9. for HAP. completed 2 days of Micafungin for fungemia but once yeast was ID as sacharomyces was switched to voriconazole. day #7 TTE- no vegetations as per report. rise in ALP, await isoenzymes. advise to check abd ct or US . continue with voriconazole. advise to get optho for fundoscopic exam in light of the fungemia. if continues to have temp spikes may need JOHN for better image of the valves in light of fungemia to rule out IE. case d/w [employer] Tender. ICU time 45 minutes.
--- NOTE | 2016-12-15 12:37 | RAD ---
HISTORY: Intubated. Portable study 07:20. COMPARISON: 12/14/2016 at 07:15. Multiple serial examinations preceding the most recent study: FINDINGS: LUNGS: Stable multifocal infiltrates. PLEURA: No significant pleural effusion identified, no pneumothorax apparent. CARDIOVASCULAR: No significant interval change compared to the prior examination(s). OSSEOUS STRUCTURES: No significant abnormalities. VISUALIZED UPPER ABDOMEN: Normal. OTHER FINDINGS: Stable position of support apparatus including nasogastric tube and endotracheal tube. IMPRESSION: No significant interval change compared to the prior examination(s).
--- NOTE | 2016-12-15 13:33 | CP.PCM.PN ---
Subjective - Date & Time of Evaluation Date of Evaluation: 12/15/16 Time of Evaluation: 12:30 - Subjective Subjective: Pt remains intubated - but now on CPAP mode febrile , most of yesterday, sl fever today opens eyes to verbal stimuli , however did not follow my command but RN says he did squeeze her hand when she asked him liquid brown stool in Rectal tube- 100 ml so far Objective - Vital Signs/Intake and Output Vital Signs (last 24 hours): Temp Pulse Resp BP Pulse Ox 99.4 F 104 H 28 H 121/68 100 12/15/16 12:00 12/15/16 12:00 12/15/16 12:00 12/15/16 12:00 12/15/16 08:00 Intake and Output: 12/15/16 12/15/16 06:59 18:59 Intake Total 1380 Output Total 800 Balance 580 - Medications Medications: Current Medications Acetaminophen (Tylenol 650mg/20.3ml Solution Ud) 650 mg PO Q6 PRN PRN Reason: fever Last Admin: 12/14/16 04:50 Dose: 650 mg Albuterol/Ipratropium (Duoneb 3 Mg/0.5 Mg (3 Ml) Ud) 3 ml INH RQID ON LICENSE OF [facility] Last Admin: 12/15/16 11:26 Dose: 3 ml Collagenase (Santyl) 1 applic TOP DAILY ON LICENSE OF [facility] Last Admin: 12/15/16 09:34 Dose: 1 applic Furosemide (Lasix) 40 mg IV DAILY [facility] Last Admin: 12/15/16 09:31 Dose: 40 mg Voriconazole 300 mg/ Sodium (Chloride) 250 mls @ 125 mls/hr IVPB Q12 [facility] Last Admin: 12/14/16 21:50 Dose: 125 mls/hr Meropenem 1 gm/ Sodium (Chloride) 100 mls @ 100 mls/hr IVPB Q12 [facility] Last Admin: 12/15/16 09:32 Dose: 100 mls/hr Insulin Human Lispro (Humalog) 0 units SC Q6 [facility] PRN Reason: Protocol Last Admin: 12/15/16 05:15 Dose: 1 unit Metronidazole (Flagyl) 500 mg PO Q8 [facility] Last Admin: 12/15/16 09:31 Dose: 500 mg Nystatin (Nystop Topical Powder) 1 applic TOP TID [facility] Last Admin: 12/15/16 09:34 Dose: 1 pow Pantoprazole Sodium (Protonix Susp) 40 mg PO DAILY [facility] - Labs Labs: 12/15/16 04:30 12/15/16 04:30 PT 13.2 Seconds (9.8-13.1) H 12/10/16 04:20 INR 1.3 (0.9-1.2) H 12/10/16 04:20 APTT 35.7 Seconds (25.6-37.1) 12/10/16 04:20 Assessment and Plan (1) Acute hypercapnic respiratory failure Status: Acute (2) Fungemia Status: Acute (3) Aspiration pneumonia Status: Acute (4) Ventricular arrhythmia Status: Acute (5) Coag negative Staphylococcus bacteremia Status: Acute (6) Anemia Status: Acute (7) Paroxysmal atrial fibrillation with rapid ventricular response Status: Acute (8) Alkaline phosphatase elevation Status: Acute - Assessment and Plan (Free Text) Assessment: Assumed care from Dr Day ( Hospitalist Team is covering while he is on vacation) Pt has a long complicated hospital course -71 y/o gent, was admitted on 11/20 - was intubated then extubated after 4 days and reintubated 12/04 ( he remains intubated since then). He was dx to have Asp PNA, Fungemia, Staph coag neg Bacteremia, C diff Colitis. 1) Acute hypercapnic respiratory failure Status: Acute Pt remains intubated on Mech vent will have discussion with family regarding need for Trach (2) Fungemia Status: Acute Blood c/s : yeast, + Saccharomyces Rpt Blood c/s : neg so far ID consulted Pt is on Voriconazole (3) Aspiration pneumonia Status: Acute cont IV meropenem Pt remains febrile (4) Ventricular arrhythmia, resolved Status: Acute Cardio consulted Dr Barnes (5) Coag negative Staphylococcus bacteremia Status: Acute Pt on IV Meropenem (6) Anemia, chronic , and acute Status: Acute Transfused 1 unit PRBC + FOBT GI consulted cont PPI Hgb now 9.2 from 7.5 (7) Paroxysmal atrial fibrillation with rapid ventricular response Status: Acute rate controlled at present not on anticoag - sec to anemia and + FOBT (8) Alkaline phosphatase elevation Status: Acute unclear etio Alk Phos Isoenz- elevated Renal, Abd Sono : neg 9. GEORGINA, improved Nephrology consulted 10 C diff Colitis, resolving + Stool C diff diarrhea reolved rpt C diff neg pt on PO Flagyl DVT proph - off Lovenox due to anemia, + FOBT - SCD
[2016-12-15] MEDS: Acetaminophen 650mg/20.3ml solution UD PO PRN (23:33)
[2016-12-16 05:12] LABS: ABG ALLEN TEST YES; ABG MECHANICAL RATE 10; ARTERIAL BLOOD GAS HCO3 32.7 mmol/L (21-28); ARTERIAL BLOOD GAS MODE A/C; ARTERIAL BLOOD GAS O2 CAPACITY 11.9 mL/dL (16-24); ARTERIAL BLOOD GAS O2 CONTENT 11.9 ML/dL (15-23); ARTERIAL BLOOD GAS PH 7.53 (7.35-7.45); ARTERIAL BLOOD GAS PO2 96 mm/Hg (80-100); ARTERIAL BLOOD HGB O2 SAT 96.9 % (95.0-98.0); ATERIAL BLOOD GAS PEEP 5; CARBOXYHEMOGLOBIN 1.7 % (0.5-1.5); HHB -0.2 % (0.0-5.0); METHEMOGLOBIN 1.7 % (0.0-3.0)
[2016-12-16] MEDS: Insulin Lispro (humaLOG) 100 Units/ml Inj SC SCH ×4 (05:43→21:40)
[2016-12-16] MEDS: Albuterol-Ipratrop 3 mg / 0.5 (3 ml) UD INH SCH ×4 (08:21→19:39)
[2016-12-16 08:25] LABS: HEMATOCRIT 28.7 % (35.0-51.0); MEAN CELL VOLUME 92.5 fl (80.0-94.0); MEAN CORPUSCULAR HEMOGLOBIN 29.8 pg (27.0-31.0); MEAN CORPUSCULAR HGB CONC 32.2 g/dL (33.0-37.0); RED CELL DISTRIBUTION WIDTH 17.3 % (11.5-14.5); WHITE BLOOD COUNT 8.4 K/uL (4.8-10.8)
[2016-12-16 08:44] LABS: BLOOD UREA NITROGEN 35 mg/dl (9-20); CALCIUM 7.6 mg/dL (8.4-10.2); CARBON DIOXIDE 27 mmol/L (22-30); CHLORIDE 109 mmol/L (98-107); GFR AFRICAN-AMERICAN > 60; GLUCOSE,RANDOM 120 mg/dL (75-110); POTASSIUM 4.2 MMOL/L (3.6-5.0); SODIUM 145 mmol/l (132-148)
[2016-12-16] MEDS: Meropenem 1 GM in Sodium Chloride 0.9% 100 ML IVPB SCH ×2 (09:04→20:15)
[2016-12-16] MEDS: Santyl Collagenase OINTMENT TOP SCH (09:06)
[2016-12-16] MEDS: Pantoprazole 40 mg Susp UD PO SCH (09:07)
--- NOTE | 2016-12-16 09:24 | CP.PCM.PN ---
Subjective - Date & Time of Evaluation Date of Evaluation: 12/16/16 Time of Evaluation: 09:00 - Subjective Subjective: Patient seen and examined bedside. elderly male , intubate on PRVC/ Ac mode MV 450/10/5/35 % satrurating well at 97 % Awake and alert , responding to name calling BP 130 /90 HR 110 SR , saturating 87 %, debrile Tmax 100.4 on OGT feeding 1.2 chidi @ 80 cc/hr Objective - Vital Signs/Intake and Output Vital Signs (last 24 hours): Temp Pulse Resp BP Pulse Ox 99.7 F H 112 H 18 130/69 99 12/16/16 08:00 12/16/16 08:00 12/16/16 08:00 12/16/16 09:03 12/16/16 08:00 Intake and Output: 12/16/16 12/16/16 06:59 18:59 Intake Total 1460 Output Total 800 Balance 660 - Medications Medications: Current Medications Acetaminophen (Tylenol 650mg/20.3ml Solution Ud) 650 mg PO Q6 PRN PRN Reason: fever Last Admin: 12/15/16 23:33 Dose: 650 mg Albuterol/Ipratropium (Duoneb 3 Mg/0.5 Mg (3 Ml) Ud) 3 ml INH RQID [facility] Last Admin: 12/16/16 08:21 Dose: 3 ml Collagenase (Santyl) 1 applic TOP DAILY [facility] Last Admin: 12/16/16 09:06 Dose: 1 applic Furosemide (Lasix) 40 mg IV DAILY [facility] Last Admin: 12/16/16 09:03 Dose: 40 mg Voriconazole 300 mg/ Sodium (Chloride) 250 mls @ 125 mls/hr IVPB Q12 [facility] Last Admin: 12/15/16 20:22 Dose: 125 mls/hr Meropenem 1 gm/ Sodium (Chloride) 100 mls @ 100 mls/hr IVPB Q12 [facility] Last Admin: 12/16/16 09:04 Dose: 100 mls/hr Insulin Human Lispro (Humalog) 0 units SC Q6 [facility] PRN Reason: Protocol Last Admin: 12/16/16 05:43 Dose: Not Given Metronidazole (Flagyl) 500 mg PO Q8 [facility] Last Admin: 12/16/16 09:03 Dose: 500 mg Nystatin (Nystop Topical Powder) 1 applic TOP TID [facility] Last Admin: 12/16/16 09:06 Dose: 1 pow Pantoprazole Sodium (Protonix Susp) 40 mg PO DAILY [facility] Last Admin: 12/16/16 09:07 Dose: 40 mg - Labs Labs: 12/16/16 07:45 12/16/16 07:45 PT 13.2 Seconds (9.8-13.1) H 12/10/16 04:20 INR 1.3 (0.9-1.2) H 12/10/16 04:20 APTT 35.7 Seconds (25.6-37.1) 12/10/16 04:20 - Constitutional Appears: No Acute Distress, Other (intubated on MV, not sedated . awake and alert ) - Head Exam Head Exam: ATRAUMATIC, NORMAL INSPECTION, NORMOCEPHALIC - Eye Exam Eye Exam: EOMI, Normal appearance, PERRL Pupil Exam: NORMAL ACCOMODATION - ENT Exam ENT Exam: Mucous Membranes Dry, Normal Exam - Neck Exam Neck Exam: Full ROM, Normal Inspection - Respiratory Exam Respiratory Exam: absent: Rhonchi, Wheezes Additional comments: coarse breath sounds to left hemithorax - Cardiovascular Exam Cardiovascular Exam: Tachycardia, +S1, +S2. absent: JVD - GI/Abdominal Exam GI & Abdominal Exam: Soft, Normal Bowel Sounds. absent: Distended, Guarding, Tenderness, Rebound - Rectal Exam Rectal Exam: Deferred - Extremities Exam Extremities Exam: absent: Pedal Edema Additional comments: upper extremity edema - Neurological Exam Neurological Exam: Alert, Awake Additional comments: not following commands - Psychiatric Exam Psychiatric exam: Flat Affect - Skin Skin Exam: Dry, Pallor, Warm Assessment and Plan - Assessment and Plan (Free Text) Assessment: Following for Dr Day ( Hospitalist Team is covering while he is on vacation) Pt has a long complicated hospital course -71 y/o gent, was admitted on 11/20 - was intubated then extubated after 4 days and reintubated 12/04 ( he remains intubated since then). He was dx to have Asp PNA, Fungemia, Staph coag neg Bacteremia, C diff Colitis. At present intubated on MV PRVC/ Ac mode , awake and alert on IV antibiotics CXR showed worsening left side infiltrate 1. Acute hypercapnic respiratory failure Acute Pt remains intubated on [facility] vent ABG 40/96/32/7.5 CXR showed worsening left side infiltrate Continue vent management will have discussion with family regarding need for Trach if unable to extubate 2. Fungemia Acute Blood c/s : yeast, + Saccharomyces Rpt Blood c/s : neg so far ID consulted Pt is on Voriconazole # 8 3. Aspiration pneumonia Acute cont IV meropenem # 10 Pt remains febrile 4. Ventricular arrhythmia, resolved Acute Cardio consulted Dr Barnes 5.Coag negative Staphylococcus bacteremia Acute Pt on IV Meropenem Echo showed no vegetations till febrile Tmax 100.4 6 Anemia, chronic , and acute Acute Transfused 1 unit PRBC + FOBT GI consulted cont PPI Hgb now 9.2 from 7.5 7.Paroxysmal atrial fibrillation with rapid ventricular response Acute rate controlled at present not on anticoag - sec to anemia and + FOBT 8. Alkaline phosphatase elevation Acute unclear etio Alk Phos Isoenz- elevated Renal, Abd Sono : neg 9. GEORGINA, improved Nephrology consulted 10 C diff Colitis, resolving + Stool C diff diarrhea resolved rpt C diff neg pt on PO Flagyl 11.DVT proph off Lovenox due to anemia, + FOBT SCD
--- NOTE | 2016-12-16 09:57 | RAD ---
HISTORY: intubated COMPARISON: 12/15/2016 FINDINGS: LUNGS: Persistent left basilar opacity. Right basilar opacity no longer evident. Patchy left apical opacity new since prior examination. Followup advised. PLEURA: No significant pleural effusion identified, no pneumothorax apparent. CARDIOVASCULAR: Normal heart size. ET tube approximately 6.5 cm above the tracheal shira. Nasogastric tube extends to upper abdomen. OSSEOUS STRUCTURES: No significant abnormalities. VISUALIZED UPPER ABDOMEN: Normal. OTHER FINDINGS: None. IMPRESSION: Persistent left basilar opacity, possible pneumonia. New patchy left apical opacity. Right basilar opacity has resolved. No pleural effusion. ET tube and NG tube grossly unchanged.
--- NOTE | 2016-12-16 10:37 | CP.CCUPN ---
<Lilian Low - Last Filed: 12/16/16 11:56> CCU Subjective - Physician Review Subjective (Free Text): 12/16/16 10:37 Patient seen and examined at bedside. Remains intubated, alert when prompted, follows simple commands of b/l hand beauty culturist apprentice and shakes head to answer "no" to some questions. Low grade fever overnight Tmax 100.4F. CCU Objective - Vital Signs / Intake & Output Vital Signs (Last 4 hours): Vital Signs Temp Pulse Resp BP Pulse Ox 12/16/16 09:03 130/69 12/16/16 08:00 99.7 F H 112 H 18 126/72 99 Intake and Output (Last 8hrs): Intake & Output 12/15/16 12/16/16 12/16/16 22:59 06:59 14:59 Intake Total 590 870 Output Total 800 Balance 590 70 Intake: Intake, Piggyback 350 Tube Feeding 240 720 Free Water Flush 150 Output: Urine 800 Urethral (No) 800 - Physical Exam Head: Positive for: Normocephalic Pupils: Positive for: PERRL Extroacular Muscles: Positive for: EOMI. Negative for: Gaze Palsy Conjunctiva: Negative for: Injected, Icteric Mouth: Positive for: Moist Mucous Membranes (ET tube, OG tube in place) Neck: Positive for: Normal Range of Motion. Negative for: Meningeal Signs, JVD , Lymphadenopathy Respiratory/Chest: Positive for: Decreased Breath Sounds. Negative for: Accessory Muscle Use, Wheezes, Rhonchi Cardiovascular: Positive for: Regular Rate and Rhythm. Negative for: Murmurs, Rub Abdomen: Positive for: Normal Bowel Sounds. Negative for: Tenderness, Distention Rectal: Positive for: Other (rectal tube with liquid brown stool) Upper Extremity: Positive for: Edema (significant bilateral pitting edema, 2 left hand IV's in place, weak b/l hand beauty culturist apprentice when prompted) Lower Extremity: Positive for: Edema (pitting, bilateral), Other (osteomyelitis of right foot). Negative for: CALF TENDERNESS, Cyanosis Neurological: Positive for: Other (alert and awake when prompted, follows simple commands-hand beauty culturist apprentice and nods head) Skin: Positive for: Warm. Negative for: Rashes Psychiatric: Positive for: Alert (when prompted, follows simple commands). Negative for: Lethargic - Medications Active Medications: Active Medications Generic Name Dose Route Start Last Admin Trade Name Ninoq PRN Reason Stop Dose Admin Acetaminophen 650 mg 12/12/16 21:03 12/15/16 23:33 Tylenol 650mg/20.3ml Solution Ud PO 650 mg Q6 PRN Administration fever Albuterol/Ipratropium 3 ml 12/09/16 12:00 12/16/16 08:21 Duoneb 3 Mg/0.5 Mg (3 Ml) Ud INH 3 ml RQID LARRY Administration Collagenase 1 applic 12/08/16 16:15 12/16/16 09:06 Santyl TOP 1 applic DAILY LARRY Administration Furosemide 40 mg 12/13/16 09:00 12/16/16 09:03 Lasix IV 40 mg DAILY LARRY Administration Voriconazole 300 mg/ Sodium 250 mls @ 125 mls/hr 12/10/16 09:00 12/15/16 20: 22 Chloride IVPB 125 mls/hr Q12 LARRY Administration Meropenem 1 gm/ Sodium 100 mls @ 100 mls/hr 12/13/16 21:00 12/16/16 09:04 Chloride IVPB 100 mls/hr Q12 LARRY Administration Insulin Human Lispro 0 units 12/06/16 22:00 12/16/16 05:43 Humalog SC Not Given Q6 LARRY Protocol Metronidazole 500 mg 12/13/16 17:00 12/16/16 09:03 Flagyl PO 500 mg Q8 LARRY Administration Nystatin 1 applic 12/08/16 17:00 12/16/16 09:06 Nystop Topical Powder TOP 1 pow TID LARRY Administration Pantoprazole Sodium 40 mg 12/16/16 09:00 12/16/16 09:07 Protonix Susp PO 40 mg DAILY LARRY Administration - Patient Studies Lab Studies: Microbiology Studies 12/14/16 17:45 Urine Culture - Final Urine,No No Growth (<1,000 CFU/ML) 12/10/16 18:30 Blood Culture - Final Blood-Venous NO GROWTH AFTER 5 DAYS Gram Stain - Final TEST NOT PERFORMED 12/10/16 18:30 Blood Culture - Final Blood-Venous NO GROWTH AFTER 5 DAYS Gram Stain - Final TEST NOT PERFORMED 12/13/16 16:45 Blood Culture - Preliminary Blood-Venous NO GROWTH AFTER 48 HOURS 12/13/16 16:45 Blood Culture - Preliminary Blood-Venous NO GROWTH AFTER 48 HOURS Lab Studies 12/16/16 12/16/16 12/16/16 Range/Units 07:45 07:45 05:35 WBC 8.4 (4.8-10.8) K/uL RBC 3.10 L (4.40-5.90) Mil/uL Hgb 9.2 L (12.0-18.0) g/dL Hct 28.7 L (35.0-51.0) % MCV 92.5 (80.0-94.0) fl MCH 29.8 (27.0-31.0) pg MCHC 32.2 L (33.0-37.0) g/dL RDW 17.3 H (11.5-14.5) % Plt Count 243 (130-400) K/uL pCO2 (35-45) mm/Hg pO2 (80-100) mm/Hg HCO3 (21-28) mmol/L ABG pH (7.35-7.45) ABG Total CO2 (22-28) mmol/L ABG O2 Saturation (95-98) % ABG O2 Content (15-23) ML/dL ABG Base Excess (-2.0-3.0) mmol/L ABG Hemoglobin (11.7-17.4) g/dL ABG Carboxyhemoglobin (0.5-1.5) % POC ABG HHb (Measured) (0.0-5.0) % ABG Methemoglobin (0.0-3.0) % ABG O2 Capacity (16-24) mL/dL Torres Test A-a O2 Difference mm/Hg Hgb O2 Saturation (95.0-98.0) % Vent Mode Mechanical Rate FiO2 % Tidal Volume PEEP Sodium 145 (132-148) mmol/l Potassium 4.2 (3.6-5.0) MMOL/L Chloride 109 H (98-107) mmol/L Carbon Dioxide 27 (22-30) mmol/L Anion Gap 13 (10-20) BUN 35 H (9-20) mg/dl Creatinine 0.8 (0.8-1.5) mg/dL Est GFR ( Amer) > 60 Est GFR (Non-Af Amer) > 60 POC Glucose (mg/dL) 134 H (65-110) mg/dL Random Glucose 120 H (75-110) mg/dL Calcium 7.6 L (8.4-10.2) mg/dL 12/16/16 12/15/16 12/15/16 Range/Units 04:44 21:07 16:34 WBC (4.8-10.8) K/uL RBC (4.40-5.90) Mil/uL Hgb (12.0-18.0) g/dL Hct (35.0-51.0) % MCV (80.0-94.0) fl MCH (27.0-31.0) pg MCHC (33.0-37.0) g/dL RDW (11.5-14.5) % Plt Count (130-400) K/uL pCO2 40 (35-45) mm/Hg pO2 96 (80-100) mm/Hg HCO3 32.7 H (21-28) mmol/L ABG pH 7.53 H (7.35-7.45) ABG Total CO2 34.6 H (22-28) mmol/L ABG O2 Saturation 100.2 H (95-98) % ABG O2 Content 11.9 L (15-23) ML/dL ABG Base Excess 9.9 H (-2.0-3.0) mmol/L ABG Hemoglobin 8.6 L (11.7-17.4) g/dL ABG Carboxyhemoglobin 1.7 H (0.5-1.5) % POC ABG HHb (Measured) -0.2 L (0.0-5.0) % ABG Methemoglobin 1.7 (0.0-3.0) % ABG O2 Capacity 11.9 L (16-24) mL/dL Torres Test Yes A-a O2 Difference 104.0 mm/Hg Hgb O2 Saturation 96.9 (95.0-98.0) % Vent Mode A/c Mechanical Rate 10 FiO2 35.0 % Tidal Volume 450 PEEP 5 Sodium (132-148) mmol/l Potassium (3.6-5.0) MMOL/L Chloride (98-107) mmol/L Carbon Dioxide (22-30) mmol/L Anion Gap (10-20) BUN (9-20) mg/dl Creatinine (0.8-1.5) mg/dL Est GFR ( Amer) Est GFR (Non-Af Amer) POC Glucose (mg/dL) 126 H 107 (65-110) mg/dL Random Glucose (75-110) mg/dL Calcium (8.4-10.2) mg/dL 12/15/16 Range/Units 11:31 WBC (4.8-10.8) K/uL RBC (4.40-5.90) Mil/uL Hgb (12.0-18.0) g/dL Hct (35.0-51.0) % MCV (80.0-94.0) fl MCH (27.0-31.0) pg MCHC (33.0-37.0) g/dL RDW (11.5-14.5) % Plt Count (130-400) K/uL pCO2 (35-45) mm/Hg pO2 (80-100) mm/Hg HCO3 (21-28) mmol/L ABG pH (7.35-7.45) ABG Total CO2 (22-28) mmol/L ABG O2 Saturation (95-98) % ABG O2 Content (15-23) ML/dL ABG Base Excess (-2.0-3.0) mmol/L ABG Hemoglobin (11.7-17.4) g/dL ABG Carboxyhemoglobin (0.5-1.5) % POC ABG HHb (Measured) (0.0-5.0) % ABG Methemoglobin (0.0-3.0) % ABG O2 Capacity (16-24) mL/dL Torres Test A-a O2 Difference mm/Hg Hgb O2 Saturation (95.0-98.0) % Vent Mode Mechanical Rate FiO2 % Tidal Volume PEEP Sodium (132-148) mmol/l Potassium (3.6-5.0) MMOL/L Chloride (98-107) mmol/L Carbon Dioxide (22-30) mmol/L Anion Gap (10-20) BUN (9-20) mg/dl Creatinine (0.8-1.5) mg/dL Est GFR ( Amer) Est GFR (Non-Af Amer) POC Glucose (mg/dL) 106 (65-110) mg/dL Random Glucose (75-110) mg/dL Calcium (8.4-10.2) mg/dL Laboratory Results - last 24 hr 12/15/16 12/15/16 12/15/16 11:31 16:34 21:07 WBC RBC Hgb Hct MCV MCH MCHC RDW Plt Count pCO2 pO2 HCO3 ABG pH ABG Total CO2 ABG O2 Saturation ABG O2 Content ABG Base Excess ABG Hemoglobin ABG Carboxyhemoglobin POC ABG HHb (Measured) ABG Methemoglobin ABG O2 Capacity Torres Test A-a O2 Difference Hgb O2 Saturation Vent Mode Mechanical Rate FiO2 Tidal Volume PEEP Sodium Potassium Chloride Carbon Dioxide Anion Gap BUN Creatinine Est GFR ( Amer) Est GFR (Non-Af Amer) POC Glucose (mg/dL) 106 107 126 H Random Glucose Calcium 12/16/16 12/16/16 12/16/16 04:44 05:35 07:45 WBC 8.4 RBC 3.10 L Hgb 9.2 L Hct 28.7 L MCV 92.5 MCH 29.8 MCHC 32.2 L RDW 17.3 H Plt Count 243 pCO2 40 pO2 96 HCO3 32.7 H ABG pH 7.53 H ABG Total CO2 34.6 H ABG O2 Saturation 100.2 H ABG O2 Content 11.9 L ABG Base Excess 9.9 H ABG Hemoglobin 8.6 L ABG Carboxyhemoglobin 1.7 H POC ABG HHb (Measured) -0.2 L ABG Methemoglobin 1.7 ABG O2 Capacity 11.9 L Torres Test Yes A-a O2 Difference 104.0 Hgb O2 Saturation 96.9 Vent Mode A/c Mechanical Rate 10 FiO2 35.0 Tidal Volume 450 PEEP 5 Sodium Potassium Chloride Carbon Dioxide Anion Gap BUN Creatinine Est GFR ( Amer) Est GFR (Non-Af Amer) POC Glucose (mg/dL) 134 H Random Glucose Calcium 12/16/16 07:45 WBC RBC Hgb Hct MCV MCH MCHC RDW Plt Count pCO2 pO2 HCO3 ABG pH ABG Total CO2 ABG O2 Saturation ABG O2 Content ABG Base Excess ABG Hemoglobin ABG Carboxyhemoglobin POC ABG HHb (Measured) ABG Methemoglobin ABG O2 Capacity Torres Test A-a O2 Difference Hgb O2 Saturation Vent Mode Mechanical Rate FiO2 Tidal Volume PEEP Sodium 145 Potassium 4.2 Chloride 109 H Carbon Dioxide 27 Anion Gap 13 BUN 35 H Creatinine 0.8 Est GFR ( Amer) > 60 Est GFR (Non-Af Amer) > 60 POC Glucose (mg/dL) Random Glucose 120 H Calcium 7.6 L Fingerstick Blood Sugar Results: 134 Review of Systems - Review of Systems Systems not reviewed;Unavailable: Intubated Critical Care Progress Note - Ventilator Checklist Head of Bed 30 Degrees: Yes Daily Assessment of Readiness to Wean: Yes Daily Spontaneous Breathing Trial: Yes PUD Prophalyxis: Yes DVT Prophylaxis: Yes - Vent Settings MODE:: PRVC (/AC) TIDAL VOLUME:: 450 RESP RATE:: 10 FIO2:: 35 PEEP:: 5 - Extremities/Vascular Does the Patient have a Central Venous Catheter?: No Does the Patient need a Central Venous Catheter?: Yes Does the Patient have a No Catheter?: Yes Does the Patient need a No Catheter?: Yes Catheter Insertion Criteria: Stage 3/Stage 4 decubits as per policy - Restraints Justification for Restraints: High risk for self extubation - Prophylaxis GI Prophylaxis GI: PPI - Prophylaxis DVT Prophylaxis DVT: SCDs Assessment/Plan - Assessment and Plan (Free Text) Assessment: 71 yr old M resident at [facility] [facility] with PMHx including HTN, A-fib, dyslipidemia , DM Type 2, diabetic neuropathy, renal insufficiency, PVD, anemia, Dementia, Osteomyelitis R foot bone base on 2015, Avascular Necrosis R Hip, Hx falls , Alcohol abuse admitted to ICU for respiratory failure requiring intubation s/ p pneumonia and septic shock. Patient with fungemia 12/04/16 , UCx + yeast species 12/04/16, Klebsiella pneumoniae 11/21, C. diff + 11/20. Awaiting discussion with son for decision on possible trachea if unable to extubate. 1. Acute Hypercapneic Respiratory Failure 2dary to pneumonia (2nd intubation 12/04 ; 1st intubation 11/20-extubated 11/24 2. s/p ventricular arrhythmias, ?? 2dary to alkalosis 3. Sacchromyces cerevisiae Fungemia 4. UTI 5. C diff 6. Anemia of Chronic Disease with coagulopathy 7. GI/DVT prophylaxis 1. remains intubated, daily CPAP trial, CXR: new left apical opacity, Meropenem , ID on board:Dr. Masters-will follow recommendations 2. stable, EKG 12/08/16: sinus rhythm with premature supraventricular complexes with occasional PVC's, prolonged QT, Cardiology-Dr. Barnes 3. BCx + 12/04/16, ID on board, continue with Voriconazole 4. UA with large leukocyte esterase, occult bacteria 12/14; no replaced, UCx : no growth 5.+ 11/20; (2 negative C diff 11/24, 11/21), 3rd C diff ordered, ID on board, continue with PO metronidazole 6. H/H stable s/p 1 unit pRBC's transfused 12/14/16, FOBT + 11/21/16 7. Protonix 40mg IV QD/ SCD's; pt will need central line - Date & Time Date: 12/16/16 Time: 07:40 <Sammy Paez - Last Filed: 12/16/16 14:13> CCU Objective - Vital Signs / Intake & Output Vital Signs (Last 4 hours): Vital Signs Temp Pulse Resp BP Pulse Ox 12/16/16 12:00 99.9 F H 110 H 18 128/64 100 Intake and Output (Last 8hrs): Intake & Output 12/15/16 12/16/16 12/16/16 22:59 06:59 14:59 Intake Total 590 870 Output Total 800 Balance 590 70 Intake: Intake, Piggyback 350 Tube Feeding 240 720 Free Water Flush 150 Output: Urine 800 Urethral (No) 800 - Medications Active Medications: Active Medications Generic Name Dose Route Start Last Admin Trade Name Freq PRN Reason Stop Dose Admin Acetaminophen 650 mg 12/12/16 21:03 12/15/16 23:33 Tylenol 650mg/20.3ml Solution Ud PO 650 mg Q6 PRN Administration fever Albuterol/Ipratropium 3 ml 12/09/16 12:00 12/16/16 11:48 Duoneb 3 Mg/0.5 Mg (3 Ml) Ud INH 3 ml RQID LARRY Administration Collagenase 1 applic 12/08/16 16:15 12/16/16 09:06 Santyl TOP 1 applic DAILY LARRY Administration Furosemide 40 mg 12/13/16 09:00 12/16/16 09:03 Lasix IV 40 mg DAILY LARRY Administration Voriconazole 300 mg/ Sodium 250 mls @ 125 mls/hr 12/10/16 09:00 12/15/16 20: 22 Chloride IVPB 125 mls/hr Q12 LARRY Administration Meropenem 1 gm/ Sodium 100 mls @ 100 mls/hr 12/13/16 21:00 12/16/16 09:04 Chloride IVPB 100 mls/hr Q12 LARRY Administration Insulin Human Lispro 0 units 12/06/16 22:00 12/16/16 05:43 Humalog SC Not Given Q6 [facility] Protocol Metronidazole 500 mg 12/13/16 17:00 12/16/16 09:03 Flagyl PO 500 mg Q8 LARRY Administration Nystatin 1 applic 12/08/16 17:00 12/16/16 09:06 Nystop Topical Powder TOP 1 pow TID LARRY Administration Pantoprazole Sodium 40 mg 12/16/16 09:00 12/16/16 09:07 Protonix Susp PO 40 mg DAILY LARRY Administration - Patient Studies Lab Studies: Microbiology Studies 12/14/16 17:45 Urine Culture - Final Urine,No No Growth (<1,000 CFU/ML) 12/10/16 18:30 Blood Culture - Final Blood-Venous NO GROWTH AFTER 5 DAYS Gram Stain - Final TEST NOT PERFORMED 12/10/16 18:30 Blood Culture - Final Blood-Venous NO GROWTH AFTER 5 DAYS Gram Stain - Final TEST NOT PERFORMED 12/13/16 16:45 Blood Culture - Preliminary Blood-Venous NO GROWTH AFTER 48 HOURS 12/13/16 16:45 Blood Culture - Preliminary Blood-Venous NO GROWTH AFTER 48 HOURS Lab Studies 12/16/16 12/16/16 12/16/16 Range/Units 11:08 07:45 07:45 WBC 8.4 (4.8-10.8) K/uL RBC 3.10 L (4.40-5.90) Mil/uL Hgb 9.2 L (12.0-18.0) g/dL Hct 28.7 L (35.0-51.0) % MCV 92.5 (80.0-94.0) fl MCH 29.8 (27.0-31.0) pg MCHC 32.2 L (33.0-37.0) g/dL RDW 17.3 H (11.5-14.5) % Plt Count 243 (130-400) K/uL pCO2 (35-45) mm/Hg pO2 (80-100) mm/Hg HCO3 (21-28) mmol/L ABG pH (7.35-7.45) ABG Total CO2 (22-28) mmol/L ABG O2 Saturation (95-98) % ABG O2 Content (15-23) ML/dL ABG Base Excess (-2.0-3.0) mmol/L ABG Hemoglobin (11.7-17.4) g/dL ABG Carboxyhemoglobin (0.5-1.5) % POC ABG HHb (Measured) (0.0-5.0) % ABG Methemoglobin (0.0-3.0) % ABG O2 Capacity (16-24) mL/dL Torres Test A-a O2 Difference mm/Hg Hgb O2 Saturation (95.0-98.0) % Vent Mode Mechanical Rate FiO2 % Tidal Volume PEEP Sodium 145 (132-148) mmol/l Potassium 4.2 (3.6-5.0) MMOL/L Chloride 109 H (98-107) mmol/L Carbon Dioxide 27 (22-30) mmol/L Anion Gap 13 (10-20) BUN 35 H (9-20) mg/dl Creatinine 0.8 (0.8-1.5) mg/dL Est GFR ( Amer) > 60 Est GFR (Non-Af Amer) > 60 POC Glucose (mg/dL) 146 H (65-110) mg/dL Random Glucose 120 H (75-110) mg/dL Calcium 7.6 L (8.4-10.2) mg/dL 12/16/16 12/16/16 12/15/16 Range/Units 05:35 04:44 21:07 WBC (4.8-10.8) K/uL RBC (4.40-5.90) Mil/uL Hgb (12.0-18.0) g/dL Hct (35.0-51.0) % MCV (80.0-94.0) fl MCH (27.0-31.0) pg MCHC (33.0-37.0) g/dL RDW (11.5-14.5) % Plt Count (130-400) K/uL pCO2 40 (35-45) mm/Hg pO2 96 (80-100) mm/Hg HCO3 32.7 H (21-28) mmol/L ABG pH 7.53 H (7.35-7.45) ABG Total CO2 34.6 H (22-28) mmol/L ABG O2 Saturation 100.2 H (95-98) % ABG O2 Content 11.9 L (15-23) ML/dL ABG Base Excess 9.9 H (-2.0-3.0) mmol/L ABG Hemoglobin 8.6 L (11.7-17.4) g/dL ABG Carboxyhemoglobin 1.7 H (0.5-1.5) % POC ABG HHb (Measured) -0.2 L (0.0-5.0) % ABG Methemoglobin 1.7 (0.0-3.0) % ABG O2 Capacity 11.9 L (16-24) mL/dL Torres Test Yes A-a O2 Difference 104.0 mm/Hg Hgb O2 Saturation 96.9 (95.0-98.0) % Vent Mode A/c Mechanical Rate 10 FiO2 35.0 % Tidal Volume 450 PEEP 5 Sodium (132-148) mmol/l Potassium (3.6-5.0) MMOL/L Chloride (98-107) mmol/L Carbon Dioxide (22-30) mmol/L Anion Gap (10-20) BUN (9-20) mg/dl Creatinine (0.8-1.5) mg/dL Est GFR ( Amer) Est GFR (Non-Af Amer) POC Glucose (mg/dL) 134 H 126 H (65-110) mg/dL Random Glucose (75-110) mg/dL Calcium (8.4-10.2) mg/dL 12/15/16 Range/Units 16:34 WBC (4.8-10.8) K/uL RBC (4.40-5.90) Mil/uL Hgb (12.0-18.0) g/dL Hct (35.0-51.0) % MCV (80.0-94.0) fl MCH (27.0-31.0) pg MCHC (33.0-37.0) g/dL RDW (11.5-14.5) % Plt Count (130-400) K/uL pCO2 (35-45) mm/Hg pO2 (80-100) mm/Hg HCO3 (21-28) mmol/L ABG pH (7.35-7.45) ABG Total CO2 (22-28) mmol/L ABG O2 Saturation (95-98) % ABG O2 Content (15-23) ML/dL ABG Base Excess (-2.0-3.0) mmol/L ABG Hemoglobin (11.7-17.4) g/dL ABG Carboxyhemoglobin (0.5-1.5) % POC ABG HHb (Measured) (0.0-5.0) % ABG Methemoglobin (0.0-3.0) % ABG O2 Capacity (16-24) mL/dL Torres Test A-a O2 Difference mm/Hg Hgb O2 Saturation (95.0-98.0) % Vent Mode Mechanical Rate FiO2 % Tidal Volume PEEP Sodium (132-148) mmol/l Potassium (3.6-5.0) MMOL/L Chloride (98-107) mmol/L Carbon Dioxide (22-30) mmol/L Anion Gap (10-20) BUN (9-20) mg/dl Creatinine (0.8-1.5) mg/dL Est GFR ( Amer) Est GFR (Non-Af Amer) POC Glucose (mg/dL) 107 (65-110) mg/dL Random Glucose (75-110) mg/dL Calcium (8.4-10.2) mg/dL Laboratory Results - last 24 hr 12/15/16 12/15/16 12/16/16 16:34 21:07 04:44 WBC RBC Hgb Hct MCV MCH MCHC RDW Plt Count pCO2 40 pO2 96 HCO3 32.7 H ABG pH 7.53 H ABG Total CO2 34.6 H ABG O2 Saturation 100.2 H ABG O2 Content 11.9 L ABG Base Excess 9.9 H ABG Hemoglobin 8.6 L ABG Carboxyhemoglobin 1.7 H POC ABG HHb (Measured) -0.2 L ABG Methemoglobin 1.7 ABG O2 Capacity 11.9 L Torres Test Yes A-a O2 Difference 104.0 Hgb O2 Saturation 96.9 Vent Mode A/c Mechanical Rate 10 FiO2 35.0 Tidal Volume 450 PEEP 5 Sodium Potassium Chloride Carbon Dioxide Anion Gap BUN Creatinine Est GFR ( Amer) Est GFR (Non-Af Amer) POC Glucose (mg/dL) 107 126 H Random Glucose Calcium 12/16/16 12/16/16 12/16/16 05:35 07:45 07:45 WBC 8.4 RBC 3.10 L Hgb 9.2 L Hct 28.7 L MCV 92.5 MCH 29.8 MCHC 32.2 L RDW 17.3 H Plt Count 243 pCO2 pO2 HCO3 ABG pH ABG Total CO2 ABG O2 Saturation ABG O2 Content ABG Base Excess ABG Hemoglobin ABG Carboxyhemoglobin POC ABG HHb (Measured) ABG Methemoglobin ABG O2 Capacity Torres Test A-a O2 Difference Hgb O2 Saturation Vent Mode Mechanical Rate FiO2 Tidal Volume PEEP Sodium 145 Potassium 4.2 Chloride 109 H Carbon Dioxide 27 Anion Gap 13 BUN 35 H Creatinine 0.8 Est GFR ( Amer) > 60 Est GFR (Non-Af Amer) > 60 POC Glucose (mg/dL) 134 H Random Glucose 120 H Calcium 7.6 L 12/16/16 11:08 WBC RBC Hgb Hct MCV MCH MCHC RDW Plt Count pCO2 pO2 HCO3 ABG pH ABG Total CO2 ABG O2 Saturation ABG O2 Content ABG Base Excess ABG Hemoglobin ABG Carboxyhemoglobin POC ABG HHb (Measured) ABG Methemoglobin ABG O2 Capacity Torres Test A-a O2 Difference Hgb O2 Saturation Vent Mode Mechanical Rate FiO2 Tidal Volume PEEP Sodium Potassium Chloride Carbon Dioxide Anion Gap BUN Creatinine Est GFR ( Amer) Est GFR (Non-Af Amer) POC Glucose (mg/dL) 146 H Random Glucose Calcium Assessment/Plan - Assessment and Plan (Free Text) Plan: Attestation: Patient seen and examined at the bedside with Resident Dr. Salas Low; and I agree with her outline of plans and management as documented below and discussed on AM rounds today, December 16, 2016. Any exceptions or additions are listed in my personal note that follows and reflects my review of all applicable clinical data, and participation in the care of the patient throughout the day in ICU.
--- NOTE | 2016-12-16 11:32 | CP.PCM.PN ---
Subjective - Date & Time of Evaluation Date of Evaluation: 12/16/16 Time of Evaluation: 12:00 - Subjective Subjective: ID Note- Pt. seen and examined today in ICU. remains intubated and not very responsive today. t-max-100.4 at midnight Objective - Vital Signs/Intake and Output Vital Signs (last 24 hours): Temp Pulse Resp BP Pulse Ox 99.7 F H 112 H 18 130/69 99 12/16/16 08:00 12/16/16 08:00 12/16/16 08:00 12/16/16 09:03 12/16/16 08:00 Intake and Output: 12/16/16 12/16/16 06:59 18:59 Intake Total 1460 Output Total 800 Balance 660 - Medications Medications: Current Medications Acetaminophen (Tylenol 650mg/20.3ml Solution Ud) 650 mg PO Q6 PRN PRN Reason: fever Last Admin: 12/15/16 23:33 Dose: 650 mg Albuterol/Ipratropium (Duoneb 3 Mg/0.5 Mg (3 Ml) Ud) 3 ml INH RQID [facility] Last Admin: 12/16/16 08:21 Dose: 3 ml Collagenase (Santyl) 1 applic TOP DAILY [facility] Last Admin: 12/16/16 09:06 Dose: 1 applic Furosemide (Lasix) 40 mg IV DAILY [facility] Last Admin: 12/16/16 09:03 Dose: 40 mg Voriconazole 300 mg/ Sodium (Chloride) 250 mls @ 125 mls/hr IVPB Q12 [facility] Last Admin: 12/15/16 20:22 Dose: 125 mls/hr Meropenem 1 gm/ Sodium (Chloride) 100 mls @ 100 mls/hr IVPB Q12 [facility] Last Admin: 12/16/16 09:04 Dose: 100 mls/hr Insulin Human Lispro (Humalog) 0 units SC Q6 [facility] PRN Reason: Protocol Last Admin: 12/16/16 05:43 Dose: Not Given Metronidazole (Flagyl) 500 mg PO Q8 [facility] Last Admin: 12/16/16 09:03 Dose: 500 mg Nystatin (Nystop Topical Powder) 1 applic TOP TID [facility] Last Admin: 12/16/16 09:06 Dose: 1 pow Pantoprazole Sodium (Protonix Susp) 40 mg PO DAILY [facility] Last Admin: 09/14/17 09:07 Dose: 40 mg - Labs Labs: - Additional Findings Additional findings: - Constitutional Appears: Chronically Ill - ENT Exam Additional comments: ET tube in place has OGT as well - Neck Exam Additional comments: supple - Respiratory Exam Additional comments: intubated and on the vent - Cardiovascular Exam Cardiovascular Exam: RRR, +S1, +S2 - GI/Abdominal Exam GI & Abdominal Exam: Soft, Normal Bowel Sounds Additional comments: ND, NT - Extremities Exam Additional comments: dry b/l heel ulcers, no discharge - Neurological Exam Additional comments: intubated , less alert today Laboratory Results - last 72 hr 12/10/16 12/13/16 12/13/16 18:30 16:18 21:14 WBC RBC Hgb Hct MCV MCH MCHC RDW Plt Count MPV Neut % (Auto) Lymph % (Auto) [place] % (Auto) Eos % (Auto) Baso % (Auto) Neut # Lymph # [place] # Eos # Baso # pCO2 pO2 HCO3 ABG pH ABG Total CO2 ABG O2 Saturation ABG O2 Content ABG Base Excess ABG Hemoglobin ABG Carboxyhemoglobin POC ABG HHb (Measured) ABG Methemoglobin ABG O2 Capacity Torres Test A-a O2 Difference Hgb O2 Saturation Vent Mode Mechanical Rate FiO2 Tidal Volume PEEP Blood Gas Comments Sodium Potassium Chloride Carbon Dioxide Anion Gap BUN Creatinine Est GFR ( Amer) Est GFR (Non-Af Amer) POC Glucose (mg/dL) 153 H 115 H Random Glucose Calcium Total Bilirubin AST ALT Alkaline Phosphatase Alk Phos Iso-Intestine 0 L Alk Phos Iso-Bone 14 L Alk Phos Iso-Liver 34 Alk Phos Iso-Placenta 0 Alk Phos Iso-Renal 52 H Total Protein Albumin Globulin Albumin/Globulin Ratio Urine Color Urine Clarity Urine pH Ur Specific [place] Urine Protein Urine Glucose (UA) Urine Ketones Urine Blood Urine Nitrate Urine Bilirubin Urine Urobilinogen Ur Leukocyte Esterase Urine RBC (Auto) Urine Microscopic WBC Urine Bacteria Blood Type Antibody Screen Crossmatch BBK History Checked 12/14/16 12/14/16 12/14/16 04:35 04:35 04:50 WBC 6.8 RBC 2.50 L Hgb 7.5 L Hct 23.2 L MCV 92.8 MCH 30.1 MCHC 32.4 L RDW 16.7 H Plt Count 243 MPV Neut % (Auto) Lymph % (Auto) [place] % (Auto) Eos % (Auto) Baso % (Auto) Neut # Lymph # [place] # Eos # Baso # pCO2 34 L pO2 112 H HCO3 32.3 H ABG pH 7.58 H ABG Total CO2 32.9 H ABG O2 Saturation 100.6 H ABG O2 Content 11.0 L ABG Base Excess 9.4 H ABG Hemoglobin 7.9 L ABG Carboxyhemoglobin 2.0 H POC ABG HHb (Measured) -0.6 L ABG Methemoglobin 1.7 ABG O2 Capacity 10.9 L Torres Test Yes A-a O2 Difference 95.0 Hgb O2 Saturation 96.9 Vent Mode A/c Mechanical Rate 10 FiO2 35.0 Tidal Volume 450 PEEP 5 Blood Gas Comments abg was done by ravi Sodium 142 Potassium 3.9 Chloride 109 H Carbon Dioxide 26 Anion Gap 11 BUN 30 H Creatinine 0.8 Est GFR ( Amer) > 60 Est GFR (Non-Af Amer) > 60 POC Glucose (mg/dL) Random Glucose 102 Calcium 7.5 L Total Bilirubin AST ALT Alkaline Phosphatase Alk Phos Iso-Intestine Alk Phos Iso-Bone Alk Phos Iso-Liver Alk Phos Iso-Placenta Alk Phos Iso-Renal Total Protein Albumin Globulin Albumin/Globulin Ratio Urine Color Urine Clarity Urine pH Ur Specific [place] Urine Protein Urine Glucose (UA) Urine Ketones Urine Blood Urine Nitrate Urine Bilirubin Urine Urobilinogen Ur Leukocyte Esterase Urine RBC (Auto) Urine Microscopic WBC Urine Bacteria Blood Type Antibody Screen Crossmatch BBK History Checked 12/14/16 12/14/16 12/14/16 05:05 10:08 10:20 WBC RBC Hgb Hct MCV MCH MCHC RDW Plt Count MPV Neut % (Auto) Lymph % (Auto) [place] % (Auto) Eos % (Auto) Baso % (Auto) Neut # Lymph # [place] # Eos # Baso # pCO2 pO2 HCO3 ABG pH ABG Total CO2 ABG O2 Saturation ABG O2 Content ABG Base Excess ABG Hemoglobin ABG Carboxyhemoglobin POC ABG HHb (Measured) ABG Methemoglobin ABG O2 Capacity Torres Test A-a O2 Difference Hgb O2 Saturation Vent Mode Mechanical Rate FiO2 Tidal Volume PEEP Blood Gas Comments Sodium Potassium Chloride Carbon Dioxide Anion Gap BUN Creatinine Est GFR ( Amer) Est GFR (Non-Af Amer) POC Glucose (mg/dL) 104 130 H Random Glucose Calcium Total Bilirubin AST ALT Alkaline Phosphatase Alk Phos Iso-Intestine Alk Phos Iso-Bone Alk Phos Iso-Liver Alk Phos Iso-Placenta Alk Phos Iso-Renal Total Protein Albumin Globulin Albumin/Globulin Ratio Urine Color Urine Clarity Urine pH Ur Specific [place] Urine Protein Urine Glucose (UA) Urine Ketones Urine Blood Urine Nitrate Urine Bilirubin Urine Urobilinogen Ur Leukocyte Esterase Urine RBC (Auto) Urine Microscopic WBC Urine Bacteria Blood Type A POSITIVE Antibody Screen Negative Crossmatch See Detail BBK History Checked Patient has bt 12/14/16 12/14/16 12/14/16 16:35 17:45 21:37 WBC RBC Hgb Hct MCV MCH MCHC RDW Plt Count MPV Neut % (Auto) Lymph % (Auto) [place] % (Auto) Eos % (Auto) Baso % (Auto) Neut # Lymph # [place] # Eos # Baso # pCO2 pO2 HCO3 ABG pH ABG Total CO2 ABG O2 Saturation ABG O2 Content ABG Base Excess ABG Hemoglobin ABG Carboxyhemoglobin POC ABG HHb (Measured) ABG Methemoglobin ABG O2 Capacity Torres Test A-a O2 Difference Hgb O2 Saturation Vent Mode Mechanical Rate FiO2 Tidal Volume PEEP Blood Gas Comments Sodium Potassium Chloride Carbon Dioxide Anion Gap BUN Creatinine Est GFR ( Amer) Est GFR (Non-Af Amer) POC Glucose (mg/dL) 141 H 142 H Random Glucose Calcium Total Bilirubin AST ALT Alkaline Phosphatase Alk Phos Iso-Intestine Alk Phos Iso-Bone Alk Phos Iso-Liver Alk Phos Iso-Placenta Alk Phos Iso-Renal Total Protein Albumin Globulin Albumin/Globulin Ratio Urine Color Yellow Urine Clarity Slighty-cloudy Urine pH 6.0 Ur Specific [place] 1.012 Urine Protein Negative Urine Glucose (UA) Neg Urine Ketones Negative Urine Blood Moderate Urine Nitrate Negative Urine Bilirubin Negative Urine Urobilinogen 0.2-1.0 Ur Leukocyte Esterase Large Urine RBC (Auto) 22 H Urine Microscopic WBC 67 H Urine Bacteria Occ H Blood Type Antibody Screen Crossmatch BBK History Checked 12/15/16 12/15/16 12/15/16 04:09 04:30 04:30 WBC 7.5 RBC 3.10 L Hgb 9.2 L Hct 28.3 L MCV 91.3 MCH 29.6 MCHC 32.4 L RDW 17.3 H Plt Count 254 MPV 9.8 Neut % (Auto) 59.2 Lymph % (Auto) 28.2 [place] % (Auto) 8.2 Eos % (Auto) 3.4 Baso % (Auto) 1.0 Neut # 4.4 Lymph # 2.1 [place] # 0.6 Eos # 0.3 Baso # 0.1 pCO2 36 pO2 103 H HCO3 32.8 H ABG pH 7.57 H ABG Total CO2 34.1 H ABG O2 Saturation 99.5 H ABG O2 Content 9.3 L ABG Base Excess 10.1 H ABG Hemoglobin 6.7 L ABG Carboxyhemoglobin 1.1 POC ABG HHb (Measured) 0.5 ABG Methemoglobin 1.8 ABG O2 Capacity 9.3 L Torres Test Yes A-a O2 Difference 102.0 Hgb O2 Saturation 96.5 Vent Mode Mechanical Rate 10 FiO2 35.0 Tidal Volume 450 PEEP 5 Blood Gas Comments Sodium 144 Potassium 4.2 Chloride 109 H Carbon Dioxide 26 Anion Gap 13 BUN 31 H Creatinine 0.9 Est GFR ( Amer) > 60 Est GFR (Non-Af Amer) > 60 POC Glucose (mg/dL) Random Glucose 124 H Calcium 7.7 L Total Bilirubin 0.3 AST 29 ALT 16 L D Alkaline Phosphatase 617 H Alk Phos Iso-Intestine Alk Phos Iso-Bone Alk Phos Iso-Liver Alk Phos Iso-Placenta Alk Phos Iso-Renal Total Protein 6.7 Albumin 2.3 L Globulin 4.4 H Albumin/Globulin Ratio 0.5 L Urine Color Urine Clarity Urine pH Ur Specific [place] Urine Protein Urine Glucose (UA) Urine Ketones Urine Blood Urine Nitrate Urine Bilirubin Urine Urobilinogen Ur Leukocyte Esterase Urine RBC (Auto) Urine Microscopic WBC Urine Bacteria Blood Type Antibody Screen Crossmatch BBK History Checked 12/15/16 12/15/16 12/15/16 05:09 11:31 16:34 WBC RBC Hgb Hct MCV MCH MCHC RDW Plt Count MPV Neut % (Auto) Lymph % (Auto) [place] % (Auto) Eos % (Auto) Baso % (Auto) Neut # Lymph # [place] # Eos # Baso # pCO2 pO2 HCO3 ABG pH ABG Total CO2 ABG O2 Saturation ABG O2 Content ABG Base Excess ABG Hemoglobin ABG Carboxyhemoglobin POC ABG HHb (Measured) ABG Methemoglobin ABG O2 Capacity Torres Test A-a O2 Difference Hgb O2 Saturation Vent Mode Mechanical Rate FiO2 Tidal Volume PEEP Blood Gas Comments Sodium Potassium Chloride Carbon Dioxide Anion Gap BUN Creatinine Est GFR ( Amer) Est GFR (Non-Af Amer) POC Glucose (mg/dL) 176 H 106 107 Random Glucose Calcium Total Bilirubin AST ALT Alkaline Phosphatase Alk Phos Iso-Intestine Alk Phos Iso-Bone Alk Phos Iso-Liver Alk Phos Iso-Placenta Alk Phos Iso-Renal Total Protein Albumin Globulin Albumin/Globulin Ratio Urine Color Urine Clarity Urine pH Ur Specific [place] Urine Protein Urine Glucose (UA) Urine Ketones Urine Blood Urine Nitrate Urine Bilirubin Urine Urobilinogen Ur Leukocyte Esterase Urine RBC (Auto) Urine Microscopic WBC Urine Bacteria Blood Type Antibody Screen Crossmatch BBK History Checked 12/15/16 12/16/16 12/16/16 21:07 04:44 05:35 WBC RBC Hgb Hct MCV MCH MCHC RDW Plt Count MPV Neut % (Auto) Lymph % (Auto) [place] % (Auto) Eos % (Auto) Baso % (Auto) Neut # Lymph # [place] # Eos # Baso # pCO2 40 pO2 96 HCO3 32.7 H ABG pH 7.53 H ABG Total CO2 34.6 H ABG O2 Saturation 100.2 H ABG O2 Content 11.9 L ABG Base Excess 9.9 H ABG Hemoglobin 8.6 L ABG Carboxyhemoglobin 1.7 H POC ABG HHb (Measured) -0.2 L ABG Methemoglobin 1.7 ABG O2 Capacity 11.9 L Torres Test Yes A-a O2 Difference 104.0 Hgb O2 Saturation 96.9 Vent Mode A/c Mechanical Rate 10 FiO2 35.0 Tidal Volume 450 PEEP 5 Blood Gas Comments Sodium Potassium Chloride Carbon Dioxide Anion Gap BUN Creatinine Est GFR ( Amer) Est GFR (Non-Af Amer) POC Glucose (mg/dL) 126 H 134 H Random Glucose Calcium Total Bilirubin AST ALT Alkaline Phosphatase Alk Phos Iso-Intestine Alk Phos Iso-Bone Alk Phos Iso-Liver Alk Phos Iso-Placenta Alk Phos Iso-Renal Total Protein Albumin Globulin Albumin/Globulin Ratio Urine Color Urine Clarity Urine pH Ur Specific [place] Urine Protein Urine Glucose (UA) Urine Ketones Urine Blood Urine Nitrate Urine Bilirubin Urine Urobilinogen Ur Leukocyte Esterase Urine RBC (Auto) Urine Microscopic WBC Urine Bacteria Blood Type Antibody Screen Crossmatch BBK History Checked 12/16/16 12/16/16 12/16/16 07:45 07:45 11:08 WBC 8.4 RBC 3.10 L Hgb 9.2 L Hct 28.7 L MCV 92.5 MCH 29.8 MCHC 32.2 L RDW 17.3 H Plt Count 243 MPV Neut % (Auto) Lymph % (Auto) [place] % (Auto) Eos % (Auto) Baso % (Auto) Neut # Lymph # [place] # Eos # Baso # pCO2 pO2 HCO3 ABG pH ABG Total CO2 ABG O2 Saturation ABG O2 Content ABG Base Excess ABG Hemoglobin ABG Carboxyhemoglobin POC ABG HHb (Measured) ABG Methemoglobin ABG O2 Capacity Torres Test A-a O2 Difference Hgb O2 Saturation Vent Mode Mechanical Rate FiO2 Tidal Volume PEEP Blood Gas Comments Sodium 145 Potassium 4.2 Chloride 109 H Carbon Dioxide 27 Anion Gap 13 BUN 35 H Creatinine 0.8 Est GFR ( Amer) > 60 Est GFR (Non-Af Amer) > 60 POC Glucose (mg/dL) 146 H Random Glucose 120 H Calcium 7.6 L Total Bilirubin AST ALT Alkaline Phosphatase Alk Phos Iso-Intestine Alk Phos Iso-Bone Alk Phos Iso-Liver Alk Phos Iso-Placenta Alk Phos Iso-Renal Total Protein Albumin Globulin Albumin/Globulin Ratio Urine Color Urine Clarity Urine pH Ur Specific [place] Urine Protein Urine Glucose (UA) Urine Ketones Urine Blood Urine Nitrate Urine Bilirubin Urine Urobilinogen Ur Leukocyte Esterase Urine RBC (Auto) Urine Microscopic WBC Urine Bacteria Blood Type Antibody Screen Crossmatch BBK History Checked Microbiology 12/14/16 17:45 Urine,No Urine Culture - Final No Growth (<1,000 CFU/ML) 12/10/16 18:30 Blood-Venous Blood Culture - Final NO GROWTH AFTER 5 DAYS 12/10/16 18:30 Blood-Venous Gram Stain - Final TEST NOT PERFORMED 12/10/16 18:30 Blood-Venous Blood Culture - Final NO GROWTH AFTER 5 DAYS 12/10/16 18:30 Blood-Venous Gram Stain - Final TEST NOT PERFORMED 12/13/16 16:45 Blood-Venous Blood Culture - Preliminary NO GROWTH AFTER 48 HOURS 12/13/16 16:45 Blood-Venous Blood Culture - Preliminary NO GROWTH AFTER 48 HOURS 12/06/16 17:30 Blood-Venous Blood Culture - Final NO GROWTH AFTER 5 DAYS 12/06/16 17:30 Blood-Venous Gram Stain - Final TEST NOT PERFORMED 12/06/16 17:50 Blood-Venous Blood Culture - Final NO GROWTH AFTER 5 DAYS 12/06/16 17:50 Blood-Venous Gram Stain - Final TEST NOT PERFORMED 12/04/16 00:10 Blood-Venous Blood Culture - Final Saccharomyces Cerevisiae 12/04/16 00:10 Blood-Venous Gram Stain - Final 12/04/16 00:10 Blood-Venous S.aureus & Coag-Neg Staph PNA FISH - Final 12/04/16 00:10 Blood-Venous Blood Culture - Final Saccharomyces Cerevisiae 12/04/16 00:10 Blood-Venous Gram Stain - Final 12/04/16 14:00 Blood S.aureus & Coag-Neg Staph PNA FISH - Final 12/04/16 14:00 Blood Blood Culture - Final Saccharomyces Cerevisiae 12/04/16 14:00 Blood Gram Stain - Final 12/04/16 18:00 Blood-Thru Central Line S.aureus & Coag-Neg Staph PNA FISH - Final 12/04/16 18:00 Blood-Thru Central Line Blood Culture - Final Saccharomyces Cerevisiae 12/04/16 18:00 Blood-Thru Central Line Gram Stain - Final 12/04/16 16:50 Urine,No Urine Culture - Final Yeast Species 12/04/16 17:00 Trachasp Sputum Culture - Final NORMAL ORAL ROSEMARY 12/04/16 18:00 Naris MRSA Culture (Admit) - Final MRSA DETECTED 12/04/16 02:05 Urine,No Urine Culture - Final Yeast Species 11/26/16 20:01 Nose MRSA Culture (Admit) - Final MRSA NOT DETECTED 11/20/16 10:00 Blood-Venous Blood Culture - Final NO GROWTH AFTER 5 DAYS 11/20/16 10:00 Blood-Venous Gram Stain - Final TEST NOT PERFORMED 11/21/16 10:00 Trachasp Gram Stain - Final 11/21/16 10:00 Trachasp Sputum Culture - Final Klebsiella Pneumoniae Ssp Pneu 11/20/16 15:00 Nose MRSA Culture (Admit) - Final MRSA NOT DETECTED 11/20/16 01:57 Urine,No Urine Culture - Final No Growth (<1,000 CFU/ML) Assessment and Plan (1) Respiratory failure Status: Acute (2) Septic shock Status: Acute (3) GEORGINA (acute kidney injury) Status: Acute (4) Fever Status: Acute - Assessment and Plan (Free Text) Assessment: A/P- fever today t-max-100.4 no changed 2 days ago normal wbc count blood cx from 12/04/2016- 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 repeat stool c.diff- negative tox and AG cxr-Right effusion and ? infiltrate as per report repeat blood cx x 2 from 12/06/2016- negative x 2 repeat blood cx from 12/10/2016- negative x 2 repeat blood cx fr 12/13/2016-neg x 2 pneumonia/resp distress fungemia is on antifungal medication, repeat bloodcx are all negative c.diff - resolved fungurea Plan- continue with meropenem for HAP , day #10. for HAP. completed 2 days of Micafungin for fungemia but once yeast was ID as sacharomyces was switched to voriconazole. day #8 TTE- no vegetations as per report. continue with voriconazole. advise to get optho for fundoscopic exam in light of the fungemia. if continues to have temp spikes may need JOHN for better image of the valves in light of fungemia to rule out IE. case d/w [employer]. ICU time 45 minutes.
--- NOTE | 2016-12-16 17:35 | CP.PCM.PN ---
Subjective - Date & Time of Evaluation Date of Evaluation: 12/16/16 Time of Evaluation: 17:30 - Subjective Subjective: no overnight events Objective - Vital Signs/Intake and Output Vital Signs (last 24 hours): Temp Pulse Resp BP Pulse Ox 99.7 F H 107 H 21 117/67 100 12/16/16 16:00 12/16/16 16:00 12/16/16 16:00 12/16/16 16:00 12/16/16 16:00 Intake and Output: 12/16/16 12/16/16 06:59 18:59 Intake Total 1460 Output Total 800 Balance 660 - Medications Medications: Current Medications Acetaminophen (Tylenol 650mg/20.3ml Solution Ud) 650 mg PO Q6 PRN PRN Reason: fever Last Admin: 12/15/16 23:33 Dose: 650 mg Albuterol/Ipratropium (Duoneb 3 Mg/0.5 Mg (3 Ml) Ud) 3 ml INH RQID [facility] Last Admin: 12/16/16 16:01 Dose: 3 ml Collagenase (Santyl) 1 applic TOP DAILY [facility] Last Admin: 12/16/16 09:06 Dose: 1 applic Furosemide (Lasix) 40 mg IV DAILY [facility] Last Admin: 12/16/16 09:03 Dose: 40 mg Voriconazole 300 mg/ Sodium (Chloride) 250 mls @ 125 mls/hr IVPB Q12 [facility] Last Admin: 12/16/16 10:00 Dose: 125 mls/hr Meropenem 1 gm/ Sodium (Chloride) 100 mls @ 100 mls/hr IVPB Q12 [facility] Last Admin: 12/16/16 09:04 Dose: 100 mls/hr Insulin Human Lispro (Humalog) 0 units SC Q6 [facility] PRN Reason: Protocol Last Admin: 12/16/16 16:48 Dose: Not Given Metronidazole (Flagyl) 500 mg PO Q8 [facility] Last Admin: 12/16/16 16:48 Dose: 500 mg Nystatin (Nystop Topical Powder) 1 applic TOP TID [facility] Last Admin: 12/16/16 16:49 Dose: 1 pow Pantoprazole Sodium (Protonix Susp) 40 mg PO DAILY [facility] Last Admin: 12/16/16 09:07 Dose: 40 mg - Labs Labs: 12/16/16 07:45 12/16/16 07:45 PT 13.2 Seconds (9.8-13.1) H 12/10/16 04:20 INR 1.3 (0.9-1.2) H 12/10/16 04:20 APTT 35.7 Seconds (25.6-37.1) 12/10/16 04:20 - Cardiovascular Exam Cardiovascular Exam: REGULAR RHYTHM - GI/Abdominal Exam GI & Abdominal Exam: Soft, Tenderness, Normal Bowel Sounds Assessment and Plan - Assessment and Plan (Free Text) Assessment: 71 yo male with sepsis goals of care to be determined continue current plan
[2016-12-17] MEDS: Insulin Lispro (humaLOG) 100 Units/ml Inj SC SCH ×4 (04:30→22:27)
[2016-12-17] MEDS ORDERED: Influenza Vaccine 18yr & older 0.5 ML/45 MCG SYR IM ONE (05:15)
[2016-12-17 05:24] LABS: BLOOD UREA NITROGEN 37 mg/dl (9-20); CALCIUM 7.7 mg/dL (8.4-10.2); CARBON DIOXIDE 28 mmol/L (22-30); CHLORIDE 110 mmol/L (98-107); GFR AFRICAN-AMERICAN > 60; GLUCOSE,RANDOM 114 mg/dL (75-110); POTASSIUM 4.4 MMOL/L (3.6-5.0); SODIUM 146 mmol/l (132-148)
[2016-12-17 05:25] LABS: HEMATOCRIT 27.9 % (35.0-51.0); MEAN CELL VOLUME 93.3 fl (80.0-94.0); MEAN CORPUSCULAR HGB CONC 32.2 g/dL (33.0-37.0); RED CELL DISTRIBUTION WIDTH 17.2 % (11.5-14.5); WHITE BLOOD COUNT 8.5 K/uL (4.8-10.8)
[2016-12-17 05:47] LABS: ABG ALLEN TEST YES; ABG MECHANICAL RATE 10; ARTERIAL BLOOD GAS HCO3 34.2 mmol/L (21-28); ARTERIAL BLOOD GAS MODE A/C; ARTERIAL BLOOD GAS O2 CAPACITY 12.7 mL/dL (16-24); ARTERIAL BLOOD GAS O2 CONTENT 12.7 ML/dL (15-23); ARTERIAL BLOOD GAS PH 7.58 (7.35-7.45); ARTERIAL BLOOD GAS PO2 119 mm/Hg (80-100); ARTERIAL BLOOD HGB O2 SAT 96.7 % (95.0-98.0); ATERIAL BLOOD GAS PEEP 5; CARBOXYHEMOGLOBIN 1.6 % (0.5-1.5); HHB -0.1 % (0.0-5.0); METHEMOGLOBIN 1.8 % (0.0-3.0)
[2016-12-17] MEDS: Albuterol-Ipratrop 3 mg / 0.5 (3 ml) UD INH SCH ×4 (07:28→19:11)
[2016-12-17] MEDS: Meropenem 1 GM in Sodium Chloride 0.9% 100 ML IVPB SCH ×2 (08:56→20:43)
[2016-12-17] MEDS: Pantoprazole 40 mg Susp UD PO SCH (08:57)
[2016-12-17] MEDS: Santyl Collagenase OINTMENT TOP SCH (08:57)
--- NOTE | 2016-12-17 10:03 | CP.PCM.PN ---
Subjective - Date & Time of Evaluation Date of Evaluation: 12/17/16 Time of Evaluation: 10:03 - Subjective Subjective: ID Note- Pt. seen and examined today in ICU. remains intubated and lethargic. Objective - Vital Signs/Intake and Output Vital Signs (last 24 hours): Temp Pulse Resp BP Pulse Ox 99 F 103 H 17 110/49 L 99 12/17/16 08:00 12/17/16 08:00 12/17/16 08:00 12/17/16 08:55 12/17/16 08:00 Intake and Output: 12/17/16 12/17/16 06:59 18:59 Intake Total 1460 310 Output Total 500 Balance 960 310 - Medications Medications: Current Medications Acetaminophen (Tylenol 650mg/20.3ml Solution Ud) 650 mg PO Q6 PRN PRN Reason: fever Last Admin: 12/15/16 23:33 Dose: 650 mg Albuterol/Ipratropium (Duoneb 3 Mg/0.5 Mg (3 Ml) Ud) 3 ml INH RQID [facility] Last Admin: 12/17/16 07:28 Dose: 3 ml Collagenase (Santyl) 1 applic TOP DAILY [facility] Last Admin: 12/17/16 08:57 Dose: 1 applic Furosemide (Lasix) 40 mg IV DAILY [facility] Last Admin: 12/17/16 08:55 Dose: 40 mg Voriconazole 300 mg/ Sodium (Chloride) 250 mls @ 125 mls/hr IVPB Q12 [facility] Last Admin: 12/16/16 20:14 Dose: 125 mls/hr Meropenem 1 gm/ Sodium (Chloride) 100 mls @ 100 mls/hr IVPB Q12 [facility]ARR[facility] Last Admin: 12/17/16 08:56 Dose: 100 mls/hr Insulin Human Lispro (Humalog) 0 units SC Q6 [facility]ARRY PRN Reason: Protocol Last Admin: 12/17/16 04:30 Dose: Not Given Metronidazole (Flagyl) 500 mg PO Q8 [facility] Last Admin: 12/17/16 08:55 Dose: 500 mg Nystatin (Nystop Topical Powder) 1 applic TOP TID [facility] Last Admin: 12/17/16 08:57 Dose: 1 pow Pantoprazole Sodium (Protonix Susp) 40 mg PO DAILY [facility] Last Admin: 12/17/16 08:57 Dose: 40 mg - Labs Labs: - Additional Findings Additional findings: - Constitutional Appears: Chronically Ill - ENT Exam Additional comments: ET tube in place has OGT as well - Neck Exam Additional comments: supple - Respiratory Exam Additional comments: intubated and on the vent - Cardiovascular Exam Cardiovascular Exam: RRR, +S1, +S2 - GI/Abdominal Exam GI & Abdominal Exam: Soft, Normal Bowel Sounds Additional comments: ND, NT - Extremities Exam Additional comments: dry b/l heel ulcers, no discharge - Neurological Exam Additional comments: intubated , less alert today Laboratory Results - last 72 hr 12/14/16 12/14/16 12/14/16 10:20 16:35 17:45 WBC RBC Hgb Hct MCV MCH MCHC RDW Plt Count MPV Neut % (Auto) Lymph % (Auto) Bertie % (Auto) Eos % (Auto) Baso % (Auto) Neut # Lymph # Bertie # Eos # Baso # pCO2 pO2 HCO3 ABG pH ABG Total CO2 ABG O2 Saturation ABG O2 Content ABG Base Excess ABG Hemoglobin ABG Carboxyhemoglobin POC ABG HHb (Measured) ABG Methemoglobin ABG O2 Capacity Torres Test A-a O2 Difference Hgb O2 Saturation Vent Mode Mechanical Rate FiO2 Tidal Volume PEEP Sodium Potassium Chloride Carbon Dioxide Anion Gap BUN Creatinine Est GFR ( Amer) Est GFR (Non-Af Amer) POC Glucose (mg/dL) 141 H Random Glucose Calcium Total Bilirubin AST ALT Alkaline Phosphatase Total Protein Albumin Globulin Albumin/Globulin Ratio Urine Color Yellow Urine Clarity Slighty-cloudy Urine pH 6.0 Ur Specific [place] 1.012 Urine Protein Negative Urine Glucose (UA) Neg Urine Ketones Negative Urine Blood Moderate Urine Nitrate Negative Urine Bilirubin Negative Urine Urobilinogen 0.2-1.0 Ur Leukocyte Esterase Large Urine RBC (Auto) 22 H Urine Microscopic WBC 67 H Urine Bacteria Occ H Blood Type A POSITIVE Antibody Screen Negative Crossmatch See Detail BBK History Checked Patient has bt 12/14/16 12/15/16 12/15/16 21:37 04:09 04:30 WBC 7.5 RBC 3.10 L Hgb 9.2 L Hct 28.3 L MCV 91.3 MCH 29.6 MCHC 32.4 L RDW 17.3 H Plt Count 254 MPV 9.8 Neut % (Auto) 59.2 Lymph % (Auto) 28.2 Bertie % (Auto) 8.2 Eos % (Auto) 3.4 Baso % (Auto) 1.0 Neut # 4.4 Lymph # 2.1 Bertie # 0.6 Eos # 0.3 Baso # 0.1 pCO2 36 pO2 103 H HCO3 32.8 H ABG pH 7.57 H ABG Total CO2 34.1 H ABG O2 Saturation 99.5 H ABG O2 Content 9.3 L ABG Base Excess 10.1 H ABG Hemoglobin 6.7 L ABG Carboxyhemoglobin 1.1 POC ABG HHb (Measured) 0.5 ABG Methemoglobin 1.8 ABG O2 Capacity 9.3 L Torres Test Yes A-a O2 Difference 102.0 Hgb O2 Saturation 96.5 Vent Mode Mechanical Rate 10 FiO2 35.0 Tidal Volume 450 PEEP 5 Sodium Potassium Chloride Carbon Dioxide Anion Gap BUN Creatinine Est GFR ( Amer) Est GFR (Non-Af Amer) POC Glucose (mg/dL) 142 H Random Glucose Calcium Total Bilirubin AST ALT Alkaline Phosphatase Total Protein Albumin Globulin Albumin/Globulin Ratio Urine Color Urine Clarity Urine pH Ur Specific [place] Urine Protein Urine Glucose (UA) Urine Ketones Urine Blood Urine Nitrate Urine Bilirubin Urine Urobilinogen Ur Leukocyte Esterase Urine RBC (Auto) Urine Microscopic WBC Urine Bacteria Blood Type Antibody Screen Crossmatch BBK History Checked 12/15/16 12/15/16 12/15/16 04:30 05:09 11:31 WBC RBC Hgb Hct MCV MCH MCHC RDW Plt Count MPV Neut % (Auto) Lymph % (Auto) Bertie % (Auto) Eos % (Auto) Baso % (Auto) Neut # Lymph # Bertie # Eos # Baso # pCO2 pO2 HCO3 ABG pH ABG Total CO2 ABG O2 Saturation ABG O2 Content ABG Base Excess ABG Hemoglobin ABG Carboxyhemoglobin POC ABG HHb (Measured) ABG Methemoglobin ABG O2 Capacity Torres Test A-a O2 Difference Hgb O2 Saturation Vent Mode Mechanical Rate FiO2 Tidal Volume PEEP Sodium 144 Potassium 4.2 Chloride 109 H Carbon Dioxide 26 Anion Gap 13 BUN 31 H Creatinine 0.9 Est GFR ( Amer) > 60 Est GFR (Non-Af Amer) > 60 POC Glucose (mg/dL) 176 H 106 Random Glucose 124 H Calcium 7.7 L Total Bilirubin 0.3 AST 29 ALT 16 L D Alkaline Phosphatase 617 H Total Protein 6.7 Albumin 2.3 L Globulin 4.4 H Albumin/Globulin Ratio 0.5 L Urine Color Urine Clarity Urine pH Ur Specific [place] Urine Protein Urine Glucose (UA) Urine Ketones Urine Blood Urine Nitrate Urine Bilirubin Urine Urobilinogen Ur Leukocyte Esterase Urine RBC (Auto) Urine Microscopic WBC Urine Bacteria Blood Type Antibody Screen Crossmatch BBK History Checked 12/15/16 12/15/16 12/16/16 16:34 21:07 04:44 WBC RBC Hgb Hct MCV MCH MCHC RDW Plt Count MPV Neut % (Auto) Lymph % (Auto) Bertie % (Auto) Eos % (Auto) Baso % (Auto) Neut # Lymph # Bertie # Eos # Baso # pCO2 40 pO2 96 HCO3 32.7 H ABG pH 7.53 H ABG Total CO2 34.6 H ABG O2 Saturation 100.2 H ABG O2 Content 11.9 L ABG Base Excess 9.9 H ABG Hemoglobin 8.6 L ABG Carboxyhemoglobin 1.7 H POC ABG HHb (Measured) -0.2 L ABG Methemoglobin 1.7 ABG O2 Capacity 11.9 L Torres Test Yes A-a O2 Difference 104.0 Hgb O2 Saturation 96.9 Vent Mode A/c Mechanical Rate 10 FiO2 35.0 Tidal Volume 450 PEEP 5 Sodium Potassium Chloride Carbon Dioxide Anion Gap BUN Creatinine Est GFR ( Amer) Est GFR (Non-Af Amer) POC Glucose (mg/dL) 107 126 H Random Glucose Calcium Total Bilirubin AST ALT Alkaline Phosphatase Total Protein Albumin Globulin Albumin/Globulin Ratio Urine Color Urine Clarity Urine pH Ur Specific [place] Urine Protein Urine Glucose (UA) Urine Ketones Urine Blood Urine Nitrate Urine Bilirubin Urine Urobilinogen Ur Leukocyte Esterase Urine RBC (Auto) Urine Microscopic WBC Urine Bacteria Blood Type Antibody Screen Crossmatch BBK History Checked 12/16/16 12/16/16 12/16/16 05:35 07:45 07:45 WBC 8.4 RBC 3.10 L Hgb 9.2 L Hct 28.7 L MCV 92.5 MCH 29.8 MCHC 32.2 L RDW 17.3 H Plt Count 243 MPV Neut % (Auto) Lymph % (Auto) Bertie % (Auto) Eos % (Auto) Baso % (Auto) Neut # Lymph # Bertie # Eos # Baso # pCO2 pO2 HCO3 ABG pH ABG Total CO2 ABG O2 Saturation ABG O2 Content ABG Base Excess ABG Hemoglobin ABG Carboxyhemoglobin POC ABG HHb (Measured) ABG Methemoglobin ABG O2 Capacity Torres Test A-a O2 Difference Hgb O2 Saturation Vent Mode Mechanical Rate FiO2 Tidal Volume PEEP Sodium 145 Potassium 4.2 Chloride 109 H Carbon Dioxide 27 Anion Gap 13 BUN 35 H Creatinine 0.8 Est GFR ( Amer) > 60 Est GFR (Non-Af Amer) > 60 POC Glucose (mg/dL) 134 H Random Glucose 120 H Calcium 7.6 L Total Bilirubin AST ALT Alkaline Phosphatase Total Protein Albumin Globulin Albumin/Globulin Ratio Urine Color Urine Clarity Urine pH Ur Specific [place] Urine Protein Urine Glucose (UA) Urine Ketones Urine Blood Urine Nitrate Urine Bilirubin Urine Urobilinogen Ur Leukocyte Esterase Urine RBC (Auto) Urine Microscopic WBC Urine Bacteria Blood Type Antibody Screen Crossmatch BBK History Checked 12/16/16 12/16/16 12/16/16 11:08 16:02 21:19 WBC RBC Hgb Hct MCV MCH MCHC RDW Plt Count MPV Neut % (Auto) Lymph % (Auto) Bertie % (Auto) Eos % (Auto) Baso % (Auto) Neut # Lymph # Bertie # Eos # Baso # pCO2 pO2 HCO3 ABG pH ABG Total CO2 ABG O2 Saturation ABG O2 Content ABG Base Excess ABG Hemoglobin ABG Carboxyhemoglobin POC ABG HHb (Measured) ABG Methemoglobin ABG O2 Capacity Torres Test A-a O2 Difference Hgb O2 Saturation Vent Mode Mechanical Rate FiO2 Tidal Volume PEEP Sodium Potassium Chloride Carbon Dioxide Anion Gap BUN Creatinine Est GFR ( Amer) Est GFR (Non-Af Amer) POC Glucose (mg/dL) 146 H 137 H 144 H Random Glucose Calcium Total Bilirubin AST ALT Alkaline Phosphatase Total Protein Albumin Globulin Albumin/Globulin Ratio Urine Color Urine Clarity Urine pH Ur Specific [place] Urine Protein Urine Glucose (UA) Urine Ketones Urine Blood Urine Nitrate Urine Bilirubin Urine Urobilinogen Ur Leukocyte Esterase Urine RBC (Auto) Urine Microscopic WBC Urine Bacteria Blood Type Antibody Screen Crossmatch BBK History Checked 12/17/16 12/17/16 12/17/16 04:13 04:20 04:20 WBC 8.5 RBC 2.99 L Hgb 9.0 L Hct 27.9 L MCV 93.3 MCH 30.0 MCHC 32.2 L RDW 17.2 H Plt Count 237 MPV Neut % (Auto) Lymph % (Auto) Bertie % (Auto) Eos % (Auto) Baso % (Auto) Neut # Lymph # Bertie # Eos # Baso # pCO2 37 pO2 119 H HCO3 34.2 H ABG pH 7.58 H ABG Total CO2 35.8 H ABG O2 Saturation 100.1 H ABG O2 Content 12.7 L ABG Base Excess 11.9 H ABG Hemoglobin 9.2 L ABG Carboxyhemoglobin 1.6 H POC ABG HHb (Measured) -0.1 L ABG Methemoglobin 1.8 ABG O2 Capacity 12.7 L Torres Test Yes A-a O2 Difference 84.0 Hgb O2 Saturation 96.7 Vent Mode A/c Mechanical Rate 10 FiO2 35.0 Tidal Volume 450 PEEP 5 Sodium 146 Potassium 4.4 Chloride 110 H Carbon Dioxide 28 Anion Gap 12 BUN 37 H Creatinine 0.8 Est GFR ( Amer) > 60 Est GFR (Non-Af Amer) > 60 POC Glucose (mg/dL) Random Glucose 114 H Calcium 7.7 L Total Bilirubin AST ALT Alkaline Phosphatase Total Protein Albumin Globulin Albumin/Globulin Ratio Urine Color Urine Clarity Urine pH Ur Specific [place] Urine Protein Urine Glucose (UA) Urine Ketones Urine Blood Urine Nitrate Urine Bilirubin Urine Urobilinogen Ur Leukocyte Esterase Urine RBC (Auto) Urine Microscopic WBC Urine Bacteria Blood Type Antibody Screen Crossmatch BBK History Checked 12/17/16 12/17/16 04:27 11:08 WBC RBC Hgb Hct MCV MCH MCHC RDW Plt Count MPV Neut % (Auto) Lymph % (Auto) Bertie % (Auto) Eos % (Auto) Baso % (Auto) Neut # Lymph # Bertie # Eos # Baso # pCO2 pO2 HCO3 ABG pH ABG Total CO2 ABG O2 Saturation ABG O2 Content ABG Base Excess ABG Hemoglobin ABG Carboxyhemoglobin POC ABG HHb (Measured) ABG Methemoglobin ABG O2 Capacity Torres Test A-a O2 Difference Hgb O2 Saturation Vent Mode Mechanical Rate FiO2 Tidal Volume PEEP Sodium Potassium Chloride Carbon Dioxide Anion Gap BUN Creatinine Est GFR ( Amer) Est GFR (Non-Af Amer) POC Glucose (mg/dL) 118 H 119 H Random Glucose Calcium Total Bilirubin AST ALT Alkaline Phosphatase Total Protein Albumin Globulin Albumin/Globulin Ratio Urine Color Urine Clarity Urine pH Ur Specific [place] Urine Protein Urine Glucose (UA) Urine Ketones Urine Blood Urine Nitrate Urine Bilirubin Urine Urobilinogen Ur Leukocyte Esterase Urine RBC (Auto) Urine Microscopic WBC Urine Bacteria Blood Type Antibody Screen Crossmatch BBK History Checked Microbiology 12/13/16 16:45 Blood-Venous Blood Culture - Preliminary NO GROWTH AFTER 3 DAYS 12/13/16 16:45 Blood-Venous Blood Culture - Preliminary NO GROWTH AFTER 3 DAYS 12/14/16 17:45 Urine,No Urine Culture - Final No Growth (<1,000 CFU/ML) 12/10/16 18:30 Blood-Venous Blood Culture - Final NO GROWTH AFTER 5 DAYS 12/10/16 18:30 Blood-Venous Gram Stain - Final TEST NOT PERFORMED 12/10/16 18:30 Blood-Venous Blood Culture - Final NO GROWTH AFTER 5 DAYS 12/10/16 18:30 Blood-Venous Gram Stain - Final TEST NOT PERFORMED 12/06/16 17:30 Blood-Venous Blood Culture - Final NO GROWTH AFTER 5 DAYS 12/06/16 17:30 Blood-Venous Gram Stain - Final TEST NOT PERFORMED 12/06/16 17:50 Blood-Venous Blood Culture - Final NO GROWTH AFTER 5 DAYS 12/06/16 17:50 Blood-Venous Gram Stain - Final TEST NOT PERFORMED 12/04/16 00:10 Blood-Venous Blood Culture - Final Saccharomyces Cerevisiae 12/04/16 00:10 Blood-Venous Gram Stain - Final 12/04/16 00:10 Blood-Venous S.aureus & Coag-Neg Staph PNA FISH - Final 12/04/16 00:10 Blood-Venous Blood Culture - Final Saccharomyces Cerevisiae 12/04/16 00:10 Blood-Venous Gram Stain - Final 12/04/16 14:00 Blood S.aureus & Coag-Neg Staph PNA FISH - Final 12/04/16 14:00 Blood Blood Culture - Final Saccharomyces Cerevisiae 12/04/16 14:00 Blood Gram Stain - Final 12/04/16 18:00 Blood-Thru Central Line S.aureus & Coag-Neg Staph PNA FISH - Final 12/04/16 18:00 Blood-Thru Central Line Blood Culture - Final Saccharomyces Cerevisiae 12/04/16 18:00 Blood-Thru Central Line Gram Stain - Final 12/04/16 16:50 Urine,No Urine Culture - Final Yeast Species 12/04/16 17:00 Trachasp Sputum Culture - Final NORMAL ORAL ROSEMARY 12/04/16 18:00 Naris MRSA Culture (Admit) - Final MRSA DETECTED 12/04/16 02:05 Urine,No Urine Culture - Final Yeast Species 11/26/16 20:01 Nose MRSA Culture (Admit) - Final MRSA NOT DETECTED 11/20/16 10:00 Blood-Venous Blood Culture - Final NO GROWTH AFTER 5 DAYS 11/20/16 10:00 Blood-Venous Gram Stain - Final TEST NOT PERFORMED 11/21/16 10:00 Trachasp Gram Stain - Final 11/21/16 10:00 Trachasp Sputum Culture - Final Klebsiella Pneumoniae Ssp Pneu 11/20/16 15:00 Nose MRSA Culture (Admit) - Final MRSA NOT DETECTED 11/20/16 01:57 Urine,No Urine Culture - Final No Growth (<1,000 CFU/ML) Accession No. : [id number] Patient Name / ID : GRACE ANTON / [id number] Exam Date : 12/17/2016 10:49:24 ( Approved ) Study Comment : Sex / Age : M / 71Y Creator : Manfred Strickland MD Dictator : Manfred Strickland MD [employer] Assistants : Bottomer Operator : Manfred Strickland MD Approver2 : Report Date : 12/17/2016 13:55:24 My Comment : HISTORY: ETT re-position lowered 2 cm. COMPARISON: Comparison chest dated 12/17/2016 at 0440 hours FINDINGS: In situ ETT, tip of which lies approximately 4.36 cm above shira. NGT is present, the distal aspect of which has not been included on this film though does lie well below EG junction. LUNGS: Central pulmonary vasculature appears slightly more congested with bilateral bibasilar opacities and small effusions. PLEURA: As above. No pneumothorax apparent. CARDIOVASCULAR: Normal. OSSEOUS STRUCTURES: No significant abnormalities. VISUALIZED UPPER ABDOMEN: Normal. OTHER FINDINGS: None. IMPRESSION: ETT and NGT as above. Central pulmonary vasculature appears slightly more congested with bilateral bibasilar opacities and small effusions. Accession No. : [id number] Patient Name / ID : GRACE ANTON / [id number] Exam Date : 12/17/2016 14:17:32 ( Approved ) Study Comment : Sex / Age : M / 71Y Creator : Bereket Rosario MD Dictator : Bereket Rosario MD [employer] Assistants : Bottomer Operator : Bereket Rosario MD Approver2 : Report Date : 12/17/2016 15:15:34 My Comment : PROCEDURE: CT Abdomen and Pelvis with contrast HISTORY: r/o occult bowel perforation / abscess COMPARISON: None. TECHNIQUE: Contrast dose: 100 cc of Omnipaque Radiation dose: Total exam DLP = 1016 mGy-cm. This CT exam was performed using one or more of the following dose reduction techniques: Automated exposure control, adjustment of the mA and/or kV according to patient size, and/or use of iterative reconstruction technique. FINDINGS: LOWER THORAX: Bilateral pleural effusions and compressive atelectasis. Moderate-size hiatal hernia. LIVER: Unremarkable. No gross lesion or ductal dilatation. GALLBLADDER AND BILE DUCTS: Unremarkable. PANCREAS: Unremarkable. No gross lesion or ductal dilatation. SPLEEN: Unremarkable. ADRENALS: Unremarkable. No mass. KIDNEYS AND URETERS: 15 millimeter calculus in the left renal pelvis without definite evidence hydronephrosis. No evidence of renal mass. VASCULATURE: Unremarkable. No aortic aneurysm. BOWEL: Rectal tube in place.. No obstruction. No gross mural thickening. APPENDIX: Normal appendix. PERITONEUM: Unremarkable. No free fluid. No free air. LYMPH NODES: Unremarkable. No enlarged lymph nodes. BLADDER: Diffuse bladder wall thickening with No catheter in place. Intraluminal air noted in the bladder as well.. REPRODUCTIVE: Unremarkable. BONES: No acute fracture. OTHER FINDINGS: None. IMPRESSION: 15 millimeter calculus in the left renal pelvis. Diffusely thickened bladder wall with No catheter in place. Bilateral pleural effusions with compressive atelectasis. 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 repeat stool c.diff- negative tox and AG repeat blood cx x 2 from 12/06/2016- negative x 2 repeat blood cx from 12/10/2016- negative x 2 repeat blood cx frpm 12/13/2016-neg x 2 CT abd/pelvis- as per report no perf, no free air and normal bowel. b/l pleural effusion. pneumonia/resp distress fungemia is on antifungal medication, repeat blood cx are all negative c.diff - resolved fungurea Plan- continue with meropenem for HAP , day #11. for HAP. completed 2 days of Micafungin for fungemia but once yeast was ID as sacharomyces was switched to voriconazole. day #9 TTE- no vegetations as per report. continue with voriconazole. case d/w [employer]. ICU time 45 minutes.
--- NOTE | 2016-12-17 10:31 | CP.CCUPN ---
<Lilian Low - Last Filed: 12/17/16 10:28> CCU Subjective - Physician Review Subjective (Free Text): 12/17/16 10:28 Patient seen and examined at bedside, remains intubated. Afebrile, somnolent but arousable, follows simple command-hand traditional maori health practitioner when prompted. CCU Objective - Vital Signs / Intake & Output Vital Signs (Last 4 hours): Vital Signs Temp Pulse Resp BP Pulse Ox 12/17/16 08:55 110/49 L 12/17/16 08:00 99 F 103 H 17 110/49 L 99 Intake and Output (Last 8hrs): Intake & Output 12/16/16 12/17/16 12/17/16 22:59 06:59 14:59 Intake Total 590 870 310 Output Total 500 Balance 590 370 310 Intake: IV 0 Intake, Piggyback 350 Oral 0 Tube Feeding 240 720 160 Free Water Flush 150 150 Output: Urine 500 Urethral (No) 500 - Physical Exam Head: Positive for: Normocephalic Pupils: Positive for: PERRL Extroacular Muscles: Positive for: EOMI. Negative for: Gaze Palsy Conjunctiva: Negative for: Injected, Icteric Mouth: Positive for: Moist Mucous Membranes (ET tube, OG tube in place) Neck: Positive for: Normal Range of Motion. Negative for: Meningeal Signs, JVD , Lymphadenopathy Respiratory/Chest: Positive for: Decreased Breath Sounds. Negative for: Accessory Muscle Use, Wheezes, Rhonchi Cardiovascular: Positive for: Regular Rate and Rhythm. Negative for: Murmurs, Rub Abdomen: Positive for: Normal Bowel Sounds. Negative for: Tenderness, Distention Rectal: Positive for: Other (rectal tube with liquid brown stool) Upper Extremity: Positive for: Edema (significant bilateral pitting edema, 2 left hand IV's in place, weak b/l hand traditional maori health practitioner when prompted) Lower Extremity: Positive for: Edema (pitting, bilateral), Other (osteomyelitis of right foot). Negative for: CALF TENDERNESS, Cyanosis Neurological: Positive for: Other (alert and awake when prompted, follows simple commands-hand traditional maori health practitioner and nods head) Skin: Positive for: Warm, Other (multiple ulcers (sacral, left hip, right foot)- wound care on board). Negative for: Rashes Psychiatric: Positive for: Alert (when prompted, follows simple commands). Negative for: Lethargic - Medications Active Medications: Active Medications Generic Name Dose Route Start Last Admin Trade Name Freq PRN Reason Stop Dose Admin Acetaminophen 650 mg 12/12/16 21:03 12/15/16 23:33 Tylenol 650mg/20.3ml Solution Ud PO 650 mg Q6 PRN Administration fever Albuterol/Ipratropium 3 ml 12/09/16 12:00 12/17/16 07:28 Duoneb 3 Mg/0.5 Mg (3 Ml) Ud INH 3 ml RQID LARRY Administration Collagenase 1 applic 12/08/16 16:15 12/17/16 08:57 Santyl TOP 1 applic DAILY LARRY Administration Furosemide 40 mg 12/13/16 09:00 12/17/16 08:55 Lasix IV 40 mg DAILY LARRY Administration Voriconazole 300 mg/ Sodium 250 mls @ 125 mls/hr 12/10/16 09:00 12/16/16 20: 14 Chloride IVPB 125 mls/hr Q12 LARRY Administration Meropenem 1 gm/ Sodium 100 mls @ 100 mls/hr 12/13/16 21:00 12/17/16 08:56 Chloride IVPB 100 mls/hr Q12 LARRY Administration Insulin Human Lispro 0 units 12/06/16 22:00 12/17/16 04:30 Humalog SC Not Given Q6 LARRY Protocol Metronidazole 500 mg 12/13/16 17:00 12/17/16 08:55 Flagyl PO 500 mg Q8 LARRY Administration Nystatin 1 applic 12/08/16 17:00 12/17/16 08:57 Nystop Topical Powder TOP 1 pow TID LARRY Administration Pantoprazole Sodium 40 mg 12/16/16 09:00 12/17/16 08:57 Protonix Susp PO 40 mg DAILY LARRY Administration - Patient Studies Lab Studies: Microbiology Studies 12/13/16 16:45 Blood Culture - Preliminary Blood-Venous NO GROWTH AFTER 3 DAYS 12/13/16 16:45 Blood Culture - Preliminary Blood-Venous NO GROWTH AFTER 3 DAYS 12/14/16 17:45 Urine Culture - Final Urine,No No Growth (<1,000 CFU/ML) Lab Studies 12/17/16 12/17/16 12/17/16 Range/Units 04:27 04:20 04:20 WBC 8.5 (4.8-10.8) K/uL RBC 2.99 L (4.40-5.90) Mil/uL Hgb 9.0 L (12.0-18.0) g/dL Hct 27.9 L (35.0-51.0) % MCV 93.3 (80.0-94.0) fl MCH 30.0 (27.0-31.0) pg MCHC 32.2 L (33.0-37.0) g/dL RDW 17.2 H (11.5-14.5) % Plt Count 237 (130-400) K/uL pCO2 (35-45) mm/Hg pO2 (80-100) mm/Hg HCO3 (21-28) mmol/L ABG pH (7.35-7.45) ABG Total CO2 (22-28) mmol/L ABG O2 Saturation (95-98) % ABG O2 Content (15-23) ML/dL ABG Base Excess (-2.0-3.0) mmol/L ABG Hemoglobin (11.7-17.4) g/dL ABG Carboxyhemoglobin (0.5-1.5) % POC ABG HHb (Measured) (0.0-5.0) % ABG Methemoglobin (0.0-3.0) % ABG O2 Capacity (16-24) mL/dL Torres Test A-a O2 Difference mm/Hg Hgb O2 Saturation (95.0-98.0) % Vent Mode Mechanical Rate FiO2 % Tidal Volume PEEP Sodium 146 (132-148) mmol/l Potassium 4.4 (3.6-5.0) MMOL/L Chloride 110 H (98-107) mmol/L Carbon Dioxide 28 (22-30) mmol/L Anion Gap 12 (10-20) BUN 37 H (9-20) mg/dl Creatinine 0.8 (0.8-1.5) mg/dL Est GFR ( Amer) > 60 Est GFR (Non-Af Amer) > 60 POC Glucose (mg/dL) 118 H (65-110) mg/dL Random Glucose 114 H (75-110) mg/dL Calcium 7.7 L (8.4-10.2) mg/dL 12/17/16 12/16/16 12/16/16 Range/Units 04:13 21:19 16:02 WBC (4.8-10.8) K/uL RBC (4.40-5.90) Mil/uL Hgb (12.0-18.0) g/dL Hct (35.0-51.0) % MCV (80.0-94.0) fl MCH (27.0-31.0) pg MCHC (33.0-37.0) g/dL RDW (11.5-14.5) % Plt Count (130-400) K/uL pCO2 37 (35-45) mm/Hg pO2 119 H (80-100) mm/Hg HCO3 34.2 H (21-28) mmol/L ABG pH 7.58 H (7.35-7.45) ABG Total CO2 35.8 H (22-28) mmol/L ABG O2 Saturation 100.1 H (95-98) % ABG O2 Content 12.7 L (15-23) ML/dL ABG Base Excess 11.9 H (-2.0-3.0) mmol/L ABG Hemoglobin 9.2 L (11.7-17.4) g/dL ABG Carboxyhemoglobin 1.6 H (0.5-1.5) % POC ABG HHb (Measured) -0.1 L (0.0-5.0) % ABG Methemoglobin 1.8 (0.0-3.0) % ABG O2 Capacity 12.7 L (16-24) mL/dL Torres Test Yes A-a O2 Difference 84.0 mm/Hg Hgb O2 Saturation 96.7 (95.0-98.0) % Vent Mode A/c Mechanical Rate 10 FiO2 35.0 % Tidal Volume 450 PEEP 5 Sodium (132-148) mmol/l Potassium (3.6-5.0) MMOL/L Chloride (98-107) mmol/L Carbon Dioxide (22-30) mmol/L Anion Gap (10-20) BUN (9-20) mg/dl Creatinine (0.8-1.5) mg/dL Est GFR ( Amer) Est GFR (Non-Af Amer) POC Glucose (mg/dL) 144 H 137 H (65-110) mg/dL Random Glucose (75-110) mg/dL Calcium (8.4-10.2) mg/dL 12/16/16 Range/Units 11:08 WBC (4.8-10.8) K/uL RBC (4.40-5.90) Mil/uL Hgb (12.0-18.0) g/dL Hct (35.0-51.0) % MCV (80.0-94.0) fl MCH (27.0-31.0) pg MCHC (33.0-37.0) g/dL RDW (11.5-14.5) % Plt Count (130-400) K/uL pCO2 (35-45) mm/Hg pO2 (80-100) mm/Hg HCO3 (21-28) mmol/L ABG pH (7.35-7.45) ABG Total CO2 (22-28) mmol/L ABG O2 Saturation (95-98) % ABG O2 Content (15-23) ML/dL ABG Base Excess (-2.0-3.0) mmol/L ABG Hemoglobin (11.7-17.4) g/dL ABG Carboxyhemoglobin (0.5-1.5) % POC ABG HHb (Measured) (0.0-5.0) % ABG Methemoglobin (0.0-3.0) % ABG O2 Capacity (16-24) mL/dL Torres Test A-a O2 Difference mm/Hg Hgb O2 Saturation (95.0-98.0) % Vent Mode Mechanical Rate FiO2 % Tidal Volume PEEP Sodium (132-148) mmol/l Potassium (3.6-5.0) MMOL/L Chloride (98-107) mmol/L Carbon Dioxide (22-30) mmol/L Anion Gap (10-20) BUN (9-20) mg/dl Creatinine (0.8-1.5) mg/dL Est GFR ( Amer) Est GFR (Non-Af Amer) POC Glucose (mg/dL) 146 H (65-110) mg/dL Random Glucose (75-110) mg/dL Calcium (8.4-10.2) mg/dL Laboratory Results - last 24 hr 12/16/16 12/16/16 12/16/16 11:08 16:02 21:19 WBC RBC Hgb Hct MCV MCH MCHC RDW Plt Count pCO2 pO2 HCO3 ABG pH ABG Total CO2 ABG O2 Saturation ABG O2 Content ABG Base Excess ABG Hemoglobin ABG Carboxyhemoglobin POC ABG HHb (Measured) ABG Methemoglobin ABG O2 Capacity Torres Test A-a O2 Difference Hgb O2 Saturation Vent Mode Mechanical Rate FiO2 Tidal Volume PEEP Sodium Potassium Chloride Carbon Dioxide Anion Gap BUN Creatinine Est GFR ( Amer) Est GFR (Non-Af Amer) POC Glucose (mg/dL) 146 H 137 H 144 H Random Glucose Calcium 12/17/16 12/17/16 12/17/16 04:13 04:20 04:20 WBC 8.5 RBC 2.99 L Hgb 9.0 L Hct 27.9 L MCV 93.3 MCH 30.0 MCHC 32.2 L RDW 17.2 H Plt Count 237 pCO2 37 pO2 119 H HCO3 34.2 H ABG pH 7.58 H ABG Total CO2 35.8 H ABG O2 Saturation 100.1 H ABG O2 Content 12.7 L ABG Base Excess 11.9 H ABG Hemoglobin 9.2 L ABG Carboxyhemoglobin 1.6 H POC ABG HHb (Measured) -0.1 L ABG Methemoglobin 1.8 ABG O2 Capacity 12.7 L Torres Test Yes A-a O2 Difference 84.0 Hgb O2 Saturation 96.7 Vent Mode A/c Mechanical Rate 10 FiO2 35.0 Tidal Volume 450 PEEP 5 Sodium 146 Potassium 4.4 Chloride 110 H Carbon Dioxide 28 Anion Gap 12 BUN 37 H Creatinine 0.8 Est GFR ( Amer) > 60 Est GFR (Non-Af Amer) > 60 POC Glucose (mg/dL) Random Glucose 114 H Calcium 7.7 L 12/17/16 04:27 WBC RBC Hgb Hct MCV MCH MCHC RDW Plt Count pCO2 pO2 HCO3 ABG pH ABG Total CO2 ABG O2 Saturation ABG O2 Content ABG Base Excess ABG Hemoglobin ABG Carboxyhemoglobin POC ABG HHb (Measured) ABG Methemoglobin ABG O2 Capacity Torres Test A-a O2 Difference Hgb O2 Saturation Vent Mode Mechanical Rate FiO2 Tidal Volume PEEP Sodium Potassium Chloride Carbon Dioxide Anion Gap BUN Creatinine Est GFR ( Amer) Est GFR (Non-Af Amer) POC Glucose (mg/dL) 118 H Random Glucose Calcium Fingerstick Blood Sugar Results: 118 Review of Systems - Review of Systems Systems not reviewed;Unavailable: Intubated Critical Care Progress Note - Ventilator Checklist Head of Bed 30 Degrees: Yes Daily Assessment of Readiness to Wean: Yes (daily CPAP runs) - Vent Settings MODE:: PRVC (/AC) TIDAL VOLUME:: 450 RESP RATE:: 10 FIO2:: 35 PEEP:: 5 - Extremities/Vascular Does the Patient have a Central Venous Catheter?: No Does the Patient need a Central Venous Catheter?: Yes Does the Patient have a No Catheter?: Yes Does the Patient need a No Catheter?: Yes Catheter Insertion Criteria: Stage 3/Stage 4 decubits as per policy - Restraints Justification for Restraints: High risk for self extubation - Prophylaxis GI Prophylaxis GI: PPI - Prophylaxis DVT Prophylaxis DVT: SCDs Assessment/Plan - Assessment and Plan (Free Text) Assessment: 71 yr old M resident at [place] with PMHx including HTN, A-fib, dyslipidemia , DM Type 2, diabetic neuropathy, renal insufficiency, PVD, anemia, Dementia, Osteomyelitis R foot bone base on 2015, Avascular Necrosis R Hip, Hx falls , Alcohol abuse admitted to ICU for respiratory failure requiring intubation s/ p pneumonia and septic shock. Patient with fungemia 12/04/16 , UCx + yeast species 12/04/16, Klebsiella pneumoniae 11/21, C. diff + 11/20. Daily CPAP runs. Discussion with [facility] on 12/16/16; they will make decision for possible trach/peg vs terminal withdrawal of life support. 1. Acute Hypercapneic Respiratory Failure 2dary to pneumonia -2nd intubation 12/04 (1st intubation 11/20-extubated 11/24) 2. s/p ventricular arrhythmias, ?? 2dary to alkalosis 3. Sacchromyces cerevisiae Fungemia 4. UTI 5. C diff 6. Anemia of Chronic Disease with coagulopathy 7. GI/DVT prophylaxis 1. remains intubated, daily CPAP trial, ETT repositioned: advanced 2cm; CXR: new left apical opacity, Meropenem, ID on board:Dr. Masters-will follow recommendations 2. stable, EKG 12/08/16: sinus rhythm with premature supraventricular complexes with occasional PVC's, prolonged QT, Cardiology-Dr. Barnes 3. BCx + 12/04/16, ID on board, continue with Voriconazole 4. UA with large leukocyte esterase, occult bacteria 12/14; no replaced, UCx : no growth 5.+ 11/20; (2 negative C diff 11/24, 11/21), 3rd C diff ordered, ID on board, continue with PO metronidazole 6. H/H stable s/p 1 unit pRBC's transfused 12/14/16, FOBT + 11/21/16 7. Protonix 40mg IV QD/ SCD's; pt will need central line - Date & Time Date: 12/17/16 Time: 07:35 <Sammy Paez - Last Filed: 12/17/16 16:43> Assessment/Plan - Assessment and Plan (Free Text) Plan: Attestation: Patient seen and examined at the bedside with Resident Dr. Salas Low; and I agree with her outline of plans and management as documented below and discussed on AM rounds today, December 17, 2016. Any exceptions or additions are listed in my personal note that follows and reflects my review of all applicable clinical data, and participation in the care of the patient throughout the day in ICU.
[2016-12-17] MEDS ORDERED: Iohexol 240 (50 ml) PO ONE (11:18)
[2016-12-17] MEDS ORDERED: Iohexol 240 (50 ml) ONE (11:54)
--- NOTE | 2016-12-17 13:24 | CP.PCM.PN ---
Subjective - Date & Time of Evaluation Date of Evaluation: 12/17/16 Time of Evaluation: 11:30 - Subjective Subjective: Patient seen and examined bedside. Elderly male , intubate on PRVC/ AC mode MV 450/10/5/35 % saturating well at 97 % Awake and alert , responding to name calling, following simple commands, vanita any pain orvdiscomfort BP 122 71 HR 110 SR , saturating 97 %, afebrile las 24 hours on OGT feeding 1.2 chidi @ 80 cc/hr CXR showed increased vascular congestion vbilateral Objective - Vital Signs/Intake and Output Vital Signs (last 24 hours): Temp Pulse Resp BP Pulse Ox 99.6 F 110 H 16 122/71 100 12/17/16 12:00 12/17/16 12:00 12/17/16 12:00 12/17/16 12:00 12/17/16 12:00 Intake and Output: 12/17/16 12/17/16 06:59 18:59 Intake Total 1460 880 Output Total 500 Balance 960 880 - Medications Medications: Current Medications Acetaminophen (Tylenol 650mg/20.3ml Solution Ud) 650 mg PO Q6 PRN PRN Reason: fever Last Admin: 12/15/16 23:33 Dose: 650 mg Albuterol/Ipratropium (Duoneb 3 Mg/0.5 Mg (3 Ml) Ud) 3 ml INH RQID [facility] Last Admin: 12/17/16 11:13 Dose: 3 ml Collagenase (Santyl) 1 applic TOP DAILY [facility] Last Admin: 12/17/16 08:57 Dose: 1 applic Furosemide (Lasix) 40 mg IV DAILY [facility] Last Admin: 12/17/16 08:55 Dose: 40 mg Voriconazole 300 mg/ Sodium (Chloride) 250 mls @ 125 mls/hr IVPB Q12 LARRY Last Admin: 12/17/16 11:59 Dose: 125 mls/hr Meropenem 1 gm/ Sodium (Chloride) 100 mls @ 100 mls/hr IVPB Q12 [facility] Last Admin: 12/17/16 08:56 Dose: 100 mls/hr Insulin Human Lispro (Humalog) 0 units SC Q6 LARRY PRN Reason: Protocol Last Admin: 12/17/16 11:00 Dose: Not Given Metronidazole (Flagyl) 500 mg PO Q8 [facility] Last Admin: 12/17/16 08:55 Dose: 500 mg Nystatin (Nystop Topical Powder) 1 applic TOP TID [facility] Last Admin: 12/17/16 12:00 Dose: 1 pow Pantoprazole Sodium (Protonix Susp) 40 mg PO DAILY [facility] Last Admin: 12/17/16 08:57 Dose: 40 mg - Labs Labs: 12/17/16 04:20 12/17/16 04:20 PT 13.2 Seconds (9.8-13.1) H 12/10/16 04:20 INR 1.3 (0.9-1.2) H 12/10/16 04:20 APTT 35.7 Seconds (25.6-37.1) 12/10/16 04:20 - Constitutional Appears: Non-toxic, No Acute Distress, Other (intubated on MV, somnolent but responsive to name calling ) - Head Exam Head Exam: ATRAUMATIC, NORMOCEPHALIC - Eye Exam Eye Exam: EOMI, PERRL Pupil Exam: NORMAL ACCOMODATION - ENT Exam ENT Exam: Mucous Membranes Dry, Normal Exam - Neck Exam Neck Exam: Normal Inspection - Respiratory Exam Respiratory Exam: Clear to Ausculation Bilateral. absent: Rhonchi, Wheezes, Respiratory Distress Additional comments: coarse breath sounds bilaterally - Cardiovascular Exam Cardiovascular Exam: Tachycardia, +S1, +S2. absent: JVD - GI/Abdominal Exam GI & Abdominal Exam: Soft, Normal Bowel Sounds. absent: Distended, Guarding, Tenderness, Rebound - Rectal Exam Rectal Exam: Deferred - Extremities Exam Extremities Exam: Normal Inspection. absent: Pedal Edema Additional comments: upper extremity edema - Neurological Exam Additional comments: responds to name calling, follows simple commands, squeezes hand - Psychiatric Exam Psychiatric exam: Flat Affect - Skin Skin Exam: Dry, Pallor, Warm Assessment and Plan - Assessment and Plan (Free Text) Assessment: Following for Dr Day ( Hospitalist Team is covering while he is on vacation) Pt has a long complicated hospital course -71 y/o gent, was admitted on 11/20 - was intubated then extubated after 4 days and reintubated 12/04 ( he remains intubated since then). He was dx to have Asp PNA, Fungemia, Staph coag neg Bacteremia, C diff Colitis. At present intubated on MV PRVC/ Ac mode , awake and alert on IV antibiotics, somnolent CXR showed worsening left side infiltrate and vascular congestion 1. Acute hypercapnic respiratory failure Acute remains intubated on MV PRVC AC mode 10/450/5/35 % , saturating well, lethargic CXR showed worsening left side infiltrate and vascular congestion Continue vent management, CPAP trial daily Continue IV antibiotics and Lasic 40 mg IV daily will have discussion with family regarding need for Trach if unable to extubate 2. Fungemia Acute Blood c/s : yeast, + Saccharomyces Rpt Blood c/s : neg so far ID on consult on Voriconazole # 9 3. Aspiration pneumonia Acute cont IV meropenem # 11 CXR showed worsening left infiltrate and vascular congestion 4. Ventricular arrhythmia, resolved Acute Cardio consulted Dr Barnes 5.Coag negative Staphylococcus bacteremia Acute on IV Meropenem Echo showed no vegetations 6 Anemia, chronic , and acute Acute Transfused 1 unit PRBC + FOBT GI consulted cont PPI Hgb now 9.2 from 7.5 7.Paroxysmal atrial fibrillation with rapid ventricular response Acute rate controlled at present not on anticoag - sec to anemia and + FOBT 8. Alkaline phosphatase elevation Acute unclear etio Alk Phos Isoenz- elevated Renal, Abd Sono : neg Ct abdomen showed no acute pathology , 15 mm stone in renal pelvis, non obstructing 9. GEORGINA, improved Nephrology consulted improved with IVF 10 C diff Colitis, resolving + Stool C diff diarrhea resolved rpt C diff neg pt on PO Flagyl 11.DVT proph off Lovenox due to anemia, + FOBT SCD
[2016-12-17] MEDS ORDERED: Iohexol 300 100 ML IJ ONE (13:52)
[2016-12-17] MEDS ORDERED: Sodium Chloride 0.9% 50 ML IV ONE (13:52)
--- NOTE | 2016-12-17 13:59 | RAD ---
HISTORY: intubated COMPARISON: Comparison chest dated 12/16/2016 FINDINGS: In situ ETT, tip of which lies approximately 5.7 cm above shira. NGT is present as well, the tip of which has not been included on this film though distal aspect does lie well below EG junction. LUNGS: Bibasilar opacities left greater than right. Small right-sided effusion and suspected tiny left effusion. Central pulmonary vasculature appears slightly increased PLEURA: No significant pleural effusion identified, no pneumothorax apparent. CARDIOVASCULAR: Unchanged OSSEOUS STRUCTURES: No significant abnormalities. VISUALIZED UPPER ABDOMEN: Normal. OTHER FINDINGS: None. IMPRESSION: ETT and NGT as described. Bibasilar opacities again noted left greater than right. Suspect small effusions. Central pulmonary vasculature appears slightly increased.
--- NOTE | 2016-12-17 14:00 | RAD ---
HISTORY: ETT re-position lowered 2 cm. COMPARISON: Comparison chest dated 12/17/2016 at 0440 hours FINDINGS: In situ ETT, tip of which lies approximately 4.36 cm above shira. NGT is present, the distal aspect of which has not been included on this film though does lie well below EG junction. LUNGS: Central pulmonary vasculature appears slightly more congested with bilateral bibasilar opacities and small effusions. PLEURA: As above. No pneumothorax apparent. CARDIOVASCULAR: Normal. OSSEOUS STRUCTURES: No significant abnormalities. VISUALIZED UPPER ABDOMEN: Normal. OTHER FINDINGS: None. IMPRESSION: ETT and NGT as above. Central pulmonary vasculature appears slightly more congested with bilateral bibasilar opacities and small effusions.
--- NOTE | 2016-12-17 15:20 | CT ---
PROCEDURE: CT Abdomen and Pelvis with contrast HISTORY: r/o occult bowel perforation / abscess COMPARISON: None. TECHNIQUE: Contrast dose: 100 cc of Omnipaque Radiation dose: Total exam DLP = 1016 mGy-cm. This CT exam was performed using one or more of the following dose reduction techniques: Automated exposure control, adjustment of the mA and/or kV according to patient size, and/or use of iterative reconstruction technique. FINDINGS: LOWER THORAX: Bilateral pleural effusions and compressive atelectasis. Moderate-size hiatal hernia. LIVER: Unremarkable. No gross lesion or ductal dilatation. GALLBLADDER AND BILE DUCTS: Unremarkable. PANCREAS: Unremarkable. No gross lesion or ductal dilatation. SPLEEN: Unremarkable. ADRENALS: Unremarkable. No mass. KIDNEYS AND URETERS: 15 millimeter calculus in the left renal pelvis without definite evidence hydronephrosis. No evidence of renal mass. VASCULATURE: Unremarkable. No aortic aneurysm. BOWEL: Rectal tube in place.. No obstruction. No gross mural thickening. APPENDIX: Normal appendix. PERITONEUM: Unremarkable. No free fluid. No free air. LYMPH NODES: Unremarkable. No enlarged lymph nodes. BLADDER: Diffuse bladder wall thickening with Triplett catheter in place. Intraluminal air noted in the bladder as well.. REPRODUCTIVE: Unremarkable. BONES: No acute fracture. OTHER FINDINGS: None. IMPRESSION: 15 millimeter calculus in the left renal pelvis. Diffusely thickened bladder wall with Triplett catheter in place. Bilateral pleural effusions with compressive atelectasis.
[2016-12-18 05:08] LABS: ABG ALLEN TEST YES; ABG MECHANICAL RATE 10; ARTERIAL BLOOD GAS HCO3 34.2 mmol/L (21-28); ARTERIAL BLOOD GAS MODE PRVC/AC; ARTERIAL BLOOD GAS O2 CAPACITY 10.6 mL/dL (16-24); ARTERIAL BLOOD GAS O2 CONTENT 10.5 ML/dL (15-23); ARTERIAL BLOOD GAS PH 7.58 (7.35-7.45); ARTERIAL BLOOD GAS PO2 110 mm/Hg (80-100); ARTERIAL BLOOD HGB O2 SAT 97.2 % (95.0-98.0); ATERIAL BLOOD GAS PEEP 5; HHB 0.5 % (0.0-5.0); METHEMOGLOBIN 1.3 % (0.0-3.0)
[2016-12-18 05:37] LABS: HEMATOCRIT 25.9 % (35.0-51.0); MEAN CELL VOLUME 92.8 fl (80.0-94.0); MEAN CORPUSCULAR HEMOGLOBIN 29.5 pg (27.0-31.0); MEAN CORPUSCULAR HGB CONC 31.8 g/dL (33.0-37.0); RED CELL DISTRIBUTION WIDTH 16.5 % (11.5-14.5); WHITE BLOOD COUNT 7.7 K/uL (4.8-10.8)
[2016-12-18 05:49] LABS: BLOOD UREA NITROGEN 35 mg/dl (9-20); CALCIUM 7.9 mg/dL (8.4-10.2); CARBON DIOXIDE 29 mmol/L (22-30); CHLORIDE 107 mmol/L (98-107); GFR AFRICAN-AMERICAN > 60; GLUCOSE,RANDOM 89 mg/dL (75-110); POTASSIUM 3.9 MMOL/L (3.6-5.0); SODIUM 142 mmol/l (132-148)
[2016-12-18] MEDS: Insulin Lispro (humaLOG) 100 Units/ml Inj SC SCH ×4 (06:02→22:47)
--- NOTE | 2016-12-18 07:24 | CP.CCUPN ---
CCU Subjective - Physician Review Subjective (Free Text): The patient was Seen/interviewed and examined by me at the bedside during ICU round, Medical records reviewed and Management issues were discussed and formulated with the house staff. Off sedations Awake, Does not follows some commands, only open eyes Comfortable, unlabored breathing Afebrile Pt on IV Meropenem and Flagyl Micafungin was switched to voriconazole for for fungemia with sacharomyces. S/p PICC line and TLC removed A Fib/A Flutter on the monitor Not tolerating CPAP trial for more then 45 minutes Tolerating OG tube feeding Moderate amount of white Resp secretions Seen by wound care for sacral wound and left hip area redness. Discussed with the son the diagnosis, treatment plans and alternatives, Awaiting family decision regarding GOC, Trach/Peg CCU Objective - Vital Signs / Intake & Output Vital Signs (Last 4 hours): Vital Signs Temp Pulse Resp BP Pulse Ox 12/18/16 06:00 101 H 24 134/66 100 12/18/16 04:00 99.3 F 97 H 23 125/58 L 99 Intake and Output (Last 8hrs): Intake & Output 12/17/16 12/18/16 12/18/16 22:59 06:59 14:59 Intake Total 920 1050 Output Total 815 500 Balance 105 550 Intake: IV 130 260 Tube Feeding 640 640 Free Water Flush 150 150 Output: Gastric Amount 15 Stomach 15 Urine 800 400 Urethral (Triplett) 800 400 Stool 100 Other: # Bowel Movements 1 - Physical Exam Head: Positive for: Normocephalic Pupils: Positive for: PERRL Extroacular Muscles: Positive for: EOMI. Negative for: Gaze Palsy Conjunctiva: Negative for: Injected, Icteric Mouth: Positive for: Moist Mucous Membranes (ET tube, OG tube in place) Neck: Positive for: Normal Range of Motion. Negative for: Meningeal Signs, JVD , Lymphadenopathy Respiratory/Chest: Positive for: Decreased Breath Sounds. Negative for: Accessory Muscle Use, Wheezes, Rhonchi Cardiovascular: Positive for: Regular Rate and Rhythm. Negative for: Murmurs, Rub Abdomen: Positive for: Normal Bowel Sounds. Negative for: Tenderness, Distention Rectal: Positive for: Other (rectal tube with liquid brown stool) Upper Extremity: Positive for: Edema (significant bilateral pitting edema, 2 left hand IV's in place, weak b/l hand veneer gluer when prompted) Lower Extremity: Positive for: Edema (pitting, bilateral), Other (osteomyelitis of right foot). Negative for: CALF TENDERNESS, Cyanosis Neurological: Positive for: Other (alert and awake when prompted, follows simple commands-hand veneer gluer and nods head) Skin: Positive for: Warm, Other (multiple ulcers (sacral, left hip, right foot)- wound care on board). Negative for: Rashes Psychiatric: Positive for: Alert (when prompted, follows simple commands). Negative for: Lethargic - Medications Active Medications: Active Medications Generic Name Dose Route Start Last Admin Trade Name Freq PRN Reason Stop Dose Admin Acetaminophen 650 mg 12/12/16 21:03 12/15/16 23:33 Tylenol 650mg/20.3ml Solution Ud PO 650 mg Q6 PRN Administration fever Albuterol/Ipratropium 3 ml 12/09/16 12:00 12/17/16 19:11 Duoneb 3 Mg/0.5 Mg (3 Ml) Ud INH 3 ml RQID LARRY Administration Collagenase 1 applic 12/08/16 16:15 12/17/16 08:57 Santyl TOP 1 applic DAILY LARRY Administration Furosemide 40 mg 12/13/16 09:00 12/17/16 08:55 Lasix IV 40 mg DAILY LARRY Administration Voriconazole 300 mg/ Sodium 250 mls @ 125 mls/hr 12/10/16 09:00 12/17/16 21: 40 Chloride IVPB 125 mls/hr Q12 LARRY Administration Meropenem 1 gm/ Sodium 100 mls @ 100 mls/hr 12/13/16 21:00 12/17/16 20:43 Chloride IVPB 100 mls/hr Q12 LARRY Administration Insulin Human Lispro 0 units 12/06/16 22:00 12/18/16 06:02 Humalog SC Not Given Q6 LARRY Protocol Metronidazole 500 mg 12/13/16 17:00 12/18/16 00:32 Flagyl PO 500 mg Q8 LARRY Administration Nystatin 1 applic 12/08/16 17:00 12/17/16 16:21 Nystop Topical Powder TOP 1 pow TID ALRRY Administration Pantoprazole Sodium 40 mg 12/16/16 09:00 12/17/16 08:57 Protonix Susp PO 40 mg DAILY LARRY Administration - Patient Studies Lab Studies: Microbiology Studies 12/13/16 16:45 Blood Culture - Preliminary Blood-Venous NO GROWTH AFTER 4 DAYS 12/13/16 16:45 Blood Culture - Preliminary Blood-Venous NO GROWTH AFTER 4 DAYS 12/16/16 16:40 Blood Culture - Preliminary Blood-Venous NO GROWTH AFTER 24 HOURS 12/04/16 17:00 Gram Stain - Final Trachasp Sputum Culture - Final NORMAL ORAL ROSEMARY Lab Studies 12/18/16 12/18/16 12/18/16 Range/Units 05:17 05:01 05:00 WBC (4.8-10.8) K/uL RBC (4.40-5.90) Mil/uL Hgb (12.0-18.0) g/dL Hct (35.0-51.0) % MCV (80.0-94.0) fl MCH (27.0-31.0) pg MCHC (33.0-37.0) g/dL RDW (11.5-14.5) % Plt Count (130-400) K/uL pCO2 37 (35-45) mm/Hg pO2 110 H (80-100) mm/Hg HCO3 34.2 H (21-28) mmol/L ABG pH 7.58 H (7.35-7.45) ABG Total CO2 35.8 H (22-28) mmol/L ABG O2 Saturation 99.5 H (95-98) % ABG O2 Content 10.5 L (15-23) ML/dL ABG Base Excess 11.8 H (-2.0-3.0) mmol/L ABG Hemoglobin 7.5 L (11.7-17.4) g/dL ABG Carboxyhemoglobin 1.0 (0.5-1.5) % POC ABG HHb (Measured) 0.5 (0.0-5.0) % ABG Methemoglobin 1.3 (0.0-3.0) % ABG O2 Capacity 10.6 L (16-24) mL/dL Torres Test Yes A-a O2 Difference 93.0 mm/Hg Hgb O2 Saturation 97.2 (95.0-98.0) % Vent Mode Prvc/ac Mechanical Rate 10 FiO2 35.0 % Tidal Volume 450 PEEP 5 Sodium 142 (132-148) mmol/l Potassium 3.9 (3.6-5.0) MMOL/L Chloride 107 (98-107) mmol/L Carbon Dioxide 29 (22-30) mmol/L Anion Gap 11 (10-20) BUN 35 H (9-20) mg/dl Creatinine 0.8 (0.8-1.5) mg/dL Est GFR ( Amer) > 60 Est GFR (Non-Af Amer) > 60 POC Glucose (mg/dL) 102 (65-110) mg/dL Random Glucose 89 (75-110) mg/dL Calcium 7.9 L (8.4-10.2) mg/dL 12/18/16 12/17/16 12/17/16 Range/Units 05:00 22:19 16:40 WBC 7.7 (4.8-10.8) K/uL RBC 2.79 L (4.40-5.90) Mil/uL Hgb 8.2 L (12.0-18.0) g/dL Hct 25.9 L (35.0-51.0) % MCV 92.8 (80.0-94.0) fl MCH 29.5 (27.0-31.0) pg MCHC 31.8 L (33.0-37.0) g/dL RDW 16.5 H (11.5-14.5) % Plt Count 216 (130-400) K/uL pCO2 (35-45) mm/Hg pO2 (80-100) mm/Hg HCO3 (21-28) mmol/L ABG pH (7.35-7.45) ABG Total CO2 (22-28) mmol/L ABG O2 Saturation (95-98) % ABG O2 Content (15-23) ML/dL ABG Base Excess (-2.0-3.0) mmol/L ABG Hemoglobin (11.7-17.4) g/dL ABG Carboxyhemoglobin (0.5-1.5) % POC ABG HHb (Measured) (0.0-5.0) % ABG Methemoglobin (0.0-3.0) % ABG O2 Capacity (16-24) mL/dL Torres Test A-a O2 Difference mm/Hg Hgb O2 Saturation (95.0-98.0) % Vent Mode Mechanical Rate FiO2 % Tidal Volume PEEP Sodium (132-148) mmol/l Potassium (3.6-5.0) MMOL/L Chloride (98-107) mmol/L Carbon Dioxide (22-30) mmol/L Anion Gap (10-20) BUN (9-20) mg/dl Creatinine (0.8-1.5) mg/dL Est GFR ( Amer) Est GFR (Non-Af Amer) POC Glucose (mg/dL) 124 H 132 H (65-110) mg/dL Random Glucose (75-110) mg/dL Calcium (8.4-10.2) mg/dL 12/17/16 Range/Units 11:08 WBC (4.8-10.8) K/uL RBC (4.40-5.90) Mil/uL Hgb (12.0-18.0) g/dL Hct (35.0-51.0) % MCV (80.0-94.0) fl MCH (27.0-31.0) pg MCHC (33.0-37.0) g/dL RDW (11.5-14.5) % Plt Count (130-400) K/uL pCO2 (35-45) mm/Hg pO2 (80-100) mm/Hg HCO3 (21-28) mmol/L ABG pH (7.35-7.45) ABG Total CO2 (22-28) mmol/L ABG O2 Saturation (95-98) % ABG O2 Content (15-23) ML/dL ABG Base Excess (-2.0-3.0) mmol/L ABG Hemoglobin (11.7-17.4) g/dL ABG Carboxyhemoglobin (0.5-1.5) % POC ABG HHb (Measured) (0.0-5.0) % ABG Methemoglobin (0.0-3.0) % ABG O2 Capacity (16-24) mL/dL Torres Test A-a O2 Difference mm/Hg Hgb O2 Saturation (95.0-98.0) % Vent Mode Mechanical Rate FiO2 % Tidal Volume PEEP Sodium (132-148) mmol/l Potassium (3.6-5.0) MMOL/L Chloride (98-107) mmol/L Carbon Dioxide (22-30) mmol/L Anion Gap (10-20) BUN (9-20) mg/dl Creatinine (0.8-1.5) mg/dL Est GFR ( Amer) Est GFR (Non-Af Amer) POC Glucose (mg/dL) 119 H (65-110) mg/dL Random Glucose (75-110) mg/dL Calcium (8.4-10.2) mg/dL Laboratory Results - last 24 hr 12/17/16 12/17/16 12/17/16 11:08 16:40 22:19 WBC RBC Hgb Hct MCV MCH MCHC RDW Plt Count pCO2 pO2 HCO3 ABG pH ABG Total CO2 ABG O2 Saturation ABG O2 Content ABG Base Excess ABG Hemoglobin ABG Carboxyhemoglobin POC ABG HHb (Measured) ABG Methemoglobin ABG O2 Capacity Torres Test A-a O2 Difference Hgb O2 Saturation Vent Mode Mechanical Rate FiO2 Tidal Volume PEEP Sodium Potassium Chloride Carbon Dioxide Anion Gap BUN Creatinine Est GFR ( Amer) Est GFR (Non-Af Amer) POC Glucose (mg/dL) 119 H 132 H 124 H Random Glucose Calcium 12/18/16 12/18/16 12/18/16 05:00 05:00 05:01 WBC 7.7 RBC 2.79 L Hgb 8.2 L Hct 25.9 L MCV 92.8 MCH 29.5 MCHC 31.8 L RDW 16.5 H Plt Count 216 pCO2 37 pO2 110 H HCO3 34.2 H ABG pH 7.58 H ABG Total CO2 35.8 H ABG O2 Saturation 99.5 H ABG O2 Content 10.5 L ABG Base Excess 11.8 H ABG Hemoglobin 7.5 L ABG Carboxyhemoglobin 1.0 POC ABG HHb (Measured) 0.5 ABG Methemoglobin 1.3 ABG O2 Capacity 10.6 L Torres Test Yes A-a O2 Difference 93.0 Hgb O2 Saturation 97.2 Vent Mode Prvc/ac Mechanical Rate 10 FiO2 35.0 Tidal Volume 450 PEEP 5 Sodium 142 Potassium 3.9 Chloride 107 Carbon Dioxide 29 Anion Gap 11 BUN 35 H Creatinine 0.8 Est GFR ( Amer) > 60 Est GFR (Non-Af Amer) > 60 POC Glucose (mg/dL) Random Glucose 89 Calcium 7.9 L 12/18/16 05:17 WBC RBC Hgb Hct MCV MCH MCHC RDW Plt Count pCO2 pO2 HCO3 ABG pH ABG Total CO2 ABG O2 Saturation ABG O2 Content ABG Base Excess ABG Hemoglobin ABG Carboxyhemoglobin POC ABG HHb (Measured) ABG Methemoglobin ABG O2 Capacity Torres Test A-a O2 Difference Hgb O2 Saturation Vent Mode Mechanical Rate FiO2 Tidal Volume PEEP Sodium Potassium Chloride Carbon Dioxide Anion Gap BUN Creatinine Est GFR ( Amer) Est GFR (Non-Af Amer) POC Glucose (mg/dL) 102 Random Glucose Calcium Fingerstick Blood Sugar Results: 102 Assessment/Plan (1) Acute hypercapnic respiratory failure Current Visit: Yes Status: Acute Priority: High Comment: Acute respiratory failure secondary to aspiration pneumonia Not a candidate for vent weaning at this time due to poor mental status Aggressive pulmonary toilet, chest PT, suctioning (2) Aspiration pneumonia Current Visit: Yes Status: Acute Comment: Continue IV Antibiotics with Meropenem & Voriconazole and Flagyl Maintain aspiration precautions (3) Severe sepsis Current Visit: Yes Status: Acute Priority: High Comment: Severe sepsis from UTI and aspiration pneumonia with Klebsiella pneumoniae Continue Meropenem and Voriconazole Continue Flagyl 500 mg PO Q8H (4) C. difficile colitis Current Visit: Yes Status: Acute Comment: Continue Flagyl 500 mg PO Q8H (5) GEORGINA (acute kidney injury) Current Visit: Yes Status: Acute Priority: High (6) Osteomyelitis of right foot Current Visit: Yes Status: Acute (7) Avascular necrosis of bone of right hip Current Visit: No Status: Acute Priority: High Comment: for sx when stable (8) Bacteremia due to Gram-positive bacteria Current Visit: No Status: Acute Priority: High (9) DVT prophylaxis Current Visit: No Status: Acute
[2016-12-18] MEDS: Albuterol-Ipratrop 3 mg / 0.5 (3 ml) UD INH SCH ×4 (08:21→19:18)
[2016-12-18] MEDS: Meropenem 1 GM in Sodium Chloride 0.9% 100 ML IVPB SCH ×2 (08:28→20:20)
[2016-12-18] MEDS: Pantoprazole 40 mg Susp UD PO SCH (09:12)
[2016-12-18] MEDS: Santyl Collagenase OINTMENT TOP SCH (09:12)
--- NOTE | 2016-12-18 13:04 | RAD ---
PROCEDURE: CHEST RADIOGRAPH, 1 VIEW HISTORY: intubated COMPARISON: 12/17/2016 FINDINGS: LUNGS: Right lower lobe infiltrate. PLEURA: No pneumothorax or pleural fluid seen. CARDIOVASCULAR: Normal. OSSEOUS STRUCTURES: No significant abnormalities. VISUALIZED UPPER ABDOMEN: Normal. OTHER FINDINGS: ETT and NG tube in place. IMPRESSION: Right lower lobe infiltrate and overall findings slightly improved since prior exam.
--- NOTE | 2016-12-18 13:54 | CP.PCM.PN ---
Subjective - Date & Time of Evaluation Date of Evaluation: 12/18/16 Time of Evaluation: 12:00 - Subjective Subjective: Pt remains intubated on Mech Vent Failed CPAP trials Tolerating OGT feeding No fever for more than 48 hours Liquid brown stool, in rectal tube 450 ml since 6 am Pt opens eyes to verbal stimuli, but does not follow simple commands Objective - Vital Signs/Intake and Output Vital Signs (last 24 hours): Temp Pulse Resp BP Pulse Ox 99.6 F 102 H 20 119/63 100 12/18/16 12:00 12/18/16 12:00 12/18/16 12:00 12/18/16 12:00 12/18/16 12:00 Intake and Output: 12/18/16 12/18/16 06:59 18:59 Intake Total 1500 980 Output Total 815 Balance 685 980 - Medications Medications: Current Medications Acetaminophen (Tylenol 650mg/20.3ml Solution Ud) 650 mg PO Q6 PRN PRN Reason: fever Last Admin: 12/15/16 23:33 Dose: 650 mg Albuterol/Ipratropium (Duoneb 3 Mg/0.5 Mg (3 Ml) Ud) 3 ml INH RQID [facility] Last Admin: 12/18/16 11:31 Dose: 3 ml Collagenase (Santyl) 1 applic TOP DAILY [facility] Last Admin: 12/18/16 09:12 Dose: 1 applic Furosemide (Lasix) 40 mg IV DAILY [facility] Last Admin: 12/18/16 08:28 Dose: 40 mg Voriconazole 300 mg/ Sodium (Chloride) 250 mls @ 125 mls/hr IVPB Q12 LARRY Last Admin: 12/18/16 10:48 Dose: 125 mls/hr Meropenem 1 gm/ Sodium (Chloride) 100 mls @ 100 mls/hr IVPB Q12 LARRY Last Admin: 12/18/16 08:28 Dose: 100 mls/hr Insulin Human Lispro (Humalog) 0 units SC Q6 LARRY PRN Reason: Protocol Last Admin: 12/18/16 11:05 Dose: Not Given Metronidazole (Flagyl) 500 mg PO Q8 [facility] Last Admin: 12/18/16 09:12 Dose: 500 mg Nystatin (Nystop Topical Powder) 1 applic TOP TID [facility] Last Admin: 12/18/16 13:23 Dose: 1 pow Pantoprazole Sodium (Protonix Susp) 40 mg PO DAILY LARRY Last Admin: 12/18/16 09:12 Dose: 40 mg - Labs Labs: 12/18/16 05:00 12/18/16 05:00 PT 13.2 Seconds (9.8-13.1) H 12/10/16 04:20 INR 1.3 (0.9-1.2) H 12/10/16 04:20 APTT 35.7 Seconds (25.6-37.1) 12/10/16 04:20 - Constitutional Appears: Older Than Stated Age, Chronically Ill, Other (Intubated on Mech Vent ) - Head Exam Head Exam: NORMAL INSPECTION, NORMOCEPHALIC - Eye Exam Eye Exam: EOMI, Normal appearance Pupil Exam: NORMAL ACCOMODATION - ENT Exam ENT Exam: Mucous Membranes Dry, Normal External Ear Exam - Respiratory Exam Respiratory Exam: Rales, Rhonchi - Cardiovascular Exam Cardiovascular Exam: REGULAR RHYTHM, +S1, +S2 - GI/Abdominal Exam GI & Abdominal Exam: Soft, Normal Bowel Sounds. absent: Tenderness - Extremities Exam Extremities Exam: Normal Capillary Refill, Pedal Edema - Neurological Exam Neurological Exam: Awake Additional comments: Pt is intubated awake but does not follow simple commands - Psychiatric Exam Psychiatric exam: Flat Affect - Skin Skin Exam: Dry, Pallor Assessment and Plan (1) Acute hypercapnic respiratory failure Status: Acute (2) Fungemia Status: Acute (3) Aspiration pneumonia Status: Acute (4) Ventricular arrhythmia Status: Acute (5) Coag negative Staphylococcus bacteremia Status: Acute (6) Anemia Status: Acute (7) Paroxysmal atrial fibrillation with rapid ventricular response Status: Acute (8) Alkaline phosphatase elevation Status: Acute - Assessment and Plan (Free Text) Assessment: Following for Dr Day ( Hospitalist Team is covering while he is on vacation) Pt has a long complicated hospital course -71 y/o gent, was admitted on 11/20 - was intubated then extubated after 4 days and reintubated 12/04 ( he remains intubated since then). He was dx to have Asp PNA, Fungemia, Staph coag neg Bacteremia, C diff Colitis. At present intubated on MV PRVC/ AC mode , awake and alert on IV antibiotics. CXR showed worsening left side infiltrate and vascular congestion 1. Acute hypercapnic respiratory failure Acute remains intubated on MV PRVC AC mode 10/450/5/35 % , saturating well, lethargic CXR showed worsening left side infiltrate and vascular congestion Continue vent management, CPAP trial daily Continue IV antibiotics and Lasic 40 mg IV daily will have discussion with family regarding need for Trach/PEG if unable to extubate 2. Fungemia Acute Blood c/s : yeast, + Saccharomyces Rpt Blood c/s : neg so far ID on consult on Voriconazole # 10 3. Aspiration pneumonia Acute cont IV meropenem # 12 CXR showed worsening left infiltrate and vascular congestion 4. Ventricular arrhythmia, resolved Acute Cardio consulted Dr Barnes 5.Coag negative Staphylococcus bacteremia Acute on IV Meropenem Echo showed no vegetations 6 Anemia, chronic , and acute Acute Transfused 1 unit PRBC + FOBT GI consulted cont PPI 7.Paroxysmal atrial fibrillation with rapid ventricular response Acute rate controlled at present not on anticoag - sec to anemia and + FOBT 8. Alkaline phosphatase elevation Acute unclear etio Alk Phos Isoenz- elevated Renal, Abd Sono : neg Ct abdomen showed no acute pathology , 15 mm stone in renal pelvis, non obstructing 9. GEORGINA, improved Nephrology consulted improved with IVF 10 C diff Colitis, resolving + Stool C diff diarrhea resolved rpt C diff neg pt on PO Flagyl 11.DVT proph off Lovenox due to anemia, + FOBT SCD
[2016-12-19 05:23] LABS: ABG ALLEN TEST YES; ABG MECHANICAL RATE 10; ARTERIAL BLOOD GAS HCO3 33.1 mmol/L (21-28); ARTERIAL BLOOD GAS MODE PRVC/AC; ARTERIAL BLOOD GAS O2 CAPACITY 12.1 mL/dL (16-24); ARTERIAL BLOOD GAS O2 CONTENT 12.1 ML/dL (15-23); ARTERIAL BLOOD GAS PH 7.52 (7.35-7.45); ARTERIAL BLOOD GAS PO2 131 mm/Hg (80-100); ARTERIAL BLOOD HGB O2 SAT 96.6 % (95.0-98.0); ATERIAL BLOOD GAS PEEP 5; CARBOXYHEMOGLOBIN 1.5 % (0.5-1.5); HHB -0.3 % (0.0-5.0); METHEMOGLOBIN 2.2 % (0.0-3.0)
[2016-12-19 06:00] LABS: BASO # 0.1 K/uL (0.0-0.2); BASO % 1.5 % (0.0-2.0); EOS # 0.4 K/uL (0.0-0.7); EOS % 4.8 % (0.0-4.0); HEMATOCRIT 25.1 % (35.0-51.0); LYMPH # 2.6 K/uL (1.0-4.3); LYMPH % 34.6 % (20.0-40.0); MEAN CELL VOLUME 93.4 fl (80.0-94.0); MEAN CORPUSCULAR HEMOGLOBIN 30.2 pg (27.0-31.0); MEAN CORPUSCULAR HGB CONC 32.3 g/dL (33.0-37.0); MEAN PLATELET VOLUME 10.2 fl (7.2-11.7); MONO # 0.6 K/uL (0.0-0.8); MONO % 8.2 % (0.0-10.0); NEUT # 3.8 K/uL (1.8-7.0); NEUT % 50.9 % (50.0-75.0); NRBC % 0.1 % (0.0-0.0); RED CELL DISTRIBUTION WIDTH 16.8 % (11.5-14.5); WHITE BLOOD COUNT 7.6 K/uL (4.8-10.8)
[2016-12-19 06:12] LABS: ALB/GLOB RATIO 0.5 (1.0-2.1); ALKALINE PHOSPHATASE 645 U/L (38-126); ALT/SGPT 23 U/L (21-72); AST/SGOT 34 U/L (17-59); BILIRUBIN,TOTAL 0.3 mg/dl (0.2-1.3); BLOOD UREA NITROGEN 36 mg/dl (9-20); CALCIUM 7.7 mg/dL (8.4-10.2); CARBON DIOXIDE 27 mmol/L (22-30); CHLORIDE 107 mmol/L (98-107); GFR AFRICAN-AMERICAN > 60; GLUCOSE,RANDOM 114 mg/dL (75-110); SODIUM 143 mmol/l (132-148); TOTAL PROTEIN 6.5 G/DL (6.3-8.2)
[2016-12-19] MEDS: Insulin Lispro (humaLOG) 100 Units/ml Inj SC SCH ×4 (06:36→23:49)
[2016-12-19] MEDS: Albuterol-Ipratrop 3 mg / 0.5 (3 ml) UD INH SCH ×4 (07:36→19:28)
[2016-12-19] MEDS: Meropenem 1 GM in Sodium Chloride 0.9% 100 ML IVPB SCH ×2 (08:47→20:26)
[2016-12-19] MEDS: Pantoprazole 40 mg Susp UD PO SCH (08:48)
--- NOTE | 2016-12-19 09:09 | CP.CCUPN ---
CCU Subjective - Physician Review Subjective (Free Text): The patient was Seen/interviewed and examined by me at the bedside during ICU round, Medical records reviewed and Management issues were discussed and formulated with the house staff. Off sedations Awake, Does not follows some commands, only open eyes Comfortable, unlabored breathing Afebrile Pt on IV Meropenem and Flagyl Micafungin was switched to voriconazole for for fungemia with sacharomyces. S/p PICC line and TLC removed A Fib/A Flutter on the monitor Not tolerating CPAP trial for more then 45 minutes Tolerating OG tube feeding Moderate amount of white Resp secretions Seen by wound care for sacral wound and left hip area redness. Discussed with the son the diagnosis, treatment plans and alternatives, Awaiting family decision regarding GOC, Trach/Peg 12/19/16 09:04 Patient seen and examined, Events reviewed Sligtly more awake today Afebrile overnight, Tmx 99.8 BP and HR NL On exam B/L edema improved Labs showing stable renal function Repeat Blood C/S NTD Last 24 H I&O 3070/2450 Change IV Lasix to PO, same dose 40 mg Daily Placed on CPAP 5, PS 15 at 8:30 AM, tolerating so far, TV 300s, RR mid 20s and saturating 100% CCU Objective - Vital Signs / Intake & Output Vital Signs (Last 4 hours): Vital Signs Temp Pulse Resp BP Pulse Ox 12/19/16 08:00 99.7 F H 102 H 21 118/57 L 100 12/19/16 06:00 93 H 22 117/56 L 100 Intake and Output (Last 8hrs): Intake & Output 12/18/16 12/19/16 12/19/16 22:59 06:59 14:59 Intake Total 1140 790 Output Total 1700 750 Balance -560 40 Intake: Intake, Piggyback 350 Tube Feeding 640 640 Free Water Flush 150 150 Output: Urine 1100 550 Urethral (Triplett) 1100 550 Stool 600 200 - Physical Exam Head: Positive for: Normocephalic Pupils: Positive for: PERRL Extroacular Muscles: Positive for: EOMI. Negative for: Gaze Palsy Conjunctiva: Negative for: Injected, Icteric Mouth: Positive for: Moist Mucous Membranes (ET tube, OG tube in place) Neck: Positive for: Normal Range of Motion. Negative for: Meningeal Signs, JVD , Lymphadenopathy Respiratory/Chest: Positive for: Decreased Breath Sounds. Negative for: Accessory Muscle Use, Wheezes, Rhonchi Cardiovascular: Positive for: Regular Rate and Rhythm. Negative for: Murmurs, Rub Abdomen: Positive for: Normal Bowel Sounds. Negative for: Tenderness, Distention Rectal: Positive for: Other (rectal tube with liquid brown stool) Upper Extremity: Positive for: Edema (significant bilateral pitting edema, 2 left hand IV's in place, weak b/l hand patient intake coordinator when prompted) Lower Extremity: Positive for: Edema (pitting, bilateral), Other (osteomyelitis of right foot). Negative for: CALF TENDERNESS, Cyanosis Neurological: Positive for: Other (alert and awake when prompted, follows simple commands-hand patient intake coordinator and nods head) Skin: Positive for: Warm, Other (multiple ulcers (sacral, left hip, right foot)- wound care on board). Negative for: Rashes Psychiatric: Positive for: Alert (when prompted, follows simple commands). Negative for: Lethargic - Medications Active Medications: Active Medications Generic Name Dose Route Start Last Admin Trade Name Freq PRN Reason Stop Dose Admin Acetaminophen 650 mg 12/12/16 21:03 12/15/16 23:33 Tylenol 650mg/20.3ml Solution Ud PO 650 mg Q6 PRN Administration fever Albuterol/Ipratropium 3 ml 12/09/16 12:00 12/19/16 07:36 Duoneb 3 Mg/0.5 Mg (3 Ml) Ud INH 3 ml RQID LARRY Administration Collagenase 1 applic 12/08/16 16:15 12/18/16 09:12 Santyl TOP 1 applic DAILY LARRY Administration Furosemide 40 mg 12/13/16 09:00 12/18/16 08:28 Lasix IV 40 mg DAILY LARRY Administration Voriconazole 300 mg/ Sodium 250 mls @ 125 mls/hr 12/10/16 09:00 12/18/16 20: 20 Chloride IVPB 125 mls/hr Q12 LARRY Administration Meropenem 1 gm/ Sodium 100 mls @ 100 mls/hr 12/13/16 21:00 12/19/16 08:47 Chloride IVPB 100 mls/hr Q12 LARRY Administration Insulin Human Lispro 0 units 12/06/16 22:00 12/19/16 06:36 Humalog SC Not Given Q6 LARRY Protocol Metronidazole 500 mg 12/13/16 17:00 12/19/16 08:48 Flagyl PO 500 mg Q8 LARRY Administration Nystatin 1 applic 12/08/16 17:00 12/19/16 08:48 Nystop Topical Powder TOP 1 pow TID LARRY Administration Pantoprazole Sodium 40 mg 12/16/16 09:00 12/19/16 08:48 Protonix Susp PO 40 mg DAILY LARRY Administration - Patient Studies Lab Studies: Microbiology Studies 12/13/16 16:45 Blood Culture - Final Blood-Venous NO GROWTH AFTER 5 DAYS Gram Stain - Final TEST NOT PERFORMED 12/13/16 16:45 Blood Culture - Final Blood-Venous NO GROWTH AFTER 5 DAYS Gram Stain - Final TEST NOT PERFORMED 12/16/16 16:40 Blood Culture - Preliminary Blood-Venous NO GROWTH AFTER 48 HOURS Lab Studies 12/19/16 12/19/16 12/19/16 Range/Units 06:18 05:30 05:30 WBC 7.6 (4.8-10.8) K/uL RBC 2.69 L (4.40-5.90) Mil/uL Hgb 8.1 L (12.0-18.0) g/dL Hct 25.1 L (35.0-51.0) % MCV 93.4 (80.0-94.0) fl MCH 30.2 (27.0-31.0) pg MCHC 32.3 L (33.0-37.0) g/dL RDW 16.8 H (11.5-14.5) % Plt Count 204 (130-400) K/uL MPV 10.2 (7.2-11.7) fl Neut % (Auto) 50.9 (50.0-75.0) % Lymph % (Auto) 34.6 (20.0-40.0) % Powell % (Auto) 8.2 (0.0-10.0) % Eos % (Auto) 4.8 H (0.0-4.0) % Baso % (Auto) 1.5 (0.0-2.0) % Neut # 3.8 (1.8-7.0) K/uL Lymph # 2.6 (1.0-4.3) K/uL Powell # 0.6 (0.0-0.8) K/uL Eos # 0.4 (0.0-0.7) K/uL Baso # 0.1 (0.0-0.2) K/uL pCO2 (35-45) mm/Hg pO2 (80-100) mm/Hg HCO3 (21-28) mmol/L ABG pH (7.35-7.45) ABG Total CO2 (22-28) mmol/L ABG O2 Saturation (95-98) % ABG O2 Content (15-23) ML/dL ABG Base Excess (-2.0-3.0) mmol/L ABG Hemoglobin (11.7-17.4) g/dL ABG Carboxyhemoglobin (0.5-1.5) % POC ABG HHb (Measured) (0.0-5.0) % ABG Methemoglobin (0.0-3.0) % ABG O2 Capacity (16-24) mL/dL Torres Test A-a O2 Difference mm/Hg Hgb O2 Saturation (95.0-98.0) % Vent Mode Mechanical Rate FiO2 % Tidal Volume PEEP Sodium 143 (132-148) mmol/l Potassium 4.0 (3.6-5.0) MMOL/L Chloride 107 (98-107) mmol/L Carbon Dioxide 27 (22-30) mmol/L Anion Gap 13 (10-20) BUN 36 H (9-20) mg/dl Creatinine 0.8 (0.8-1.5) mg/dL Est GFR ( Amer) > 60 Est GFR (Non-Af Amer) > 60 POC Glucose (mg/dL) 138 H (65-110) mg/dL Random Glucose 114 H (75-110) mg/dL Calcium 7.7 L (8.4-10.2) mg/dL Total Bilirubin 0.3 (0.2-1.3) mg/dl AST 34 (17-59) U/L ALT 23 (21-72) U/L Alkaline Phosphatase 645 H (38-126) U/L Total Protein 6.5 (6.3-8.2) G/DL Albumin 2.3 L (3.5-5.0) g/dL Globulin 4.2 H (2.2-3.9) gm/dL Albumin/Globulin Ratio 0.5 L (1.0-2.1) 12/19/16 12/18/16 12/18/16 Range/Units 05:08 21:33 16:23 WBC (4.8-10.8) K/uL RBC (4.40-5.90) Mil/uL Hgb (12.0-18.0) g/dL Hct (35.0-51.0) % MCV (80.0-94.0) fl MCH (27.0-31.0) pg MCHC (33.0-37.0) g/dL RDW (11.5-14.5) % Plt Count (130-400) K/uL MPV (7.2-11.7) fl Neut % (Auto) (50.0-75.0) % Lymph % (Auto) (20.0-40.0) % Powell % (Auto) (0.0-10.0) % Eos % (Auto) (0.0-4.0) % Baso % (Auto) (0.0-2.0) % Neut # (1.8-7.0) K/uL Lymph # (1.0-4.3) K/uL Powell # (0.0-0.8) K/uL Eos # (0.0-0.7) K/uL Baso # (0.0-0.2) K/uL pCO2 42 (35-45) mm/Hg pO2 131 H (80-100) mm/Hg HCO3 33.1 H (21-28) mmol/L ABG pH 7.52 H (7.35-7.45) ABG Total CO2 35.6 H (22-28) mmol/L ABG O2 Saturation 100.3 H (95-98) % ABG O2 Content 12.1 L (15-23) ML/dL ABG Base Excess 10.5 H (-2.0-3.0) mmol/L ABG Hemoglobin 8.7 L (11.7-17.4) g/dL ABG Carboxyhemoglobin 1.5 (0.5-1.5) % POC ABG HHb (Measured) -0.3 L (0.0-5.0) % ABG Methemoglobin 2.2 (0.0-3.0) % ABG O2 Capacity 12.1 L (16-24) mL/dL Torres Test Yes A-a O2 Difference 66.0 mm/Hg Hgb O2 Saturation 96.6 (95.0-98.0) % Vent Mode Prvc/ac Mechanical Rate 10 FiO2 35.0 % Tidal Volume 450 PEEP 5 Sodium (132-148) mmol/l Potassium (3.6-5.0) MMOL/L Chloride (98-107) mmol/L Carbon Dioxide (22-30) mmol/L Anion Gap (10-20) BUN (9-20) mg/dl Creatinine (0.8-1.5) mg/dL Est GFR ( Amer) Est GFR (Non-Af Amer) POC Glucose (mg/dL) 130 H 127 H (65-110) mg/dL Random Glucose (75-110) mg/dL Calcium (8.4-10.2) mg/dL Total Bilirubin (0.2-1.3) mg/dl AST (17-59) U/L ALT (21-72) U/L Alkaline Phosphatase (38-126) U/L Total Protein (6.3-8.2) G/DL Albumin (3.5-5.0) g/dL Globulin (2.2-3.9) gm/dL Albumin/Globulin Ratio (1.0-2.1) // Range/Units 11:17 WBC (4.8-10.8) K/uL RBC (4.40-5.90) Mil/uL Hgb (12.0-18.0) g/dL Hct (35.0-51.0) % MCV (80.0-94.0) fl MCH (27.0-31.0) pg MCHC (33.0-37.0) g/dL RDW (11.5-14.5) % Plt Count (130-400) K/uL MPV (7.2-11.7) fl Neut % (Auto) (50.0-75.0) % Lymph % (Auto) (20.0-40.0) % Powell % (Auto) (0.0-10.0) % Eos % (Auto) (0.0-4.0) % Baso % (Auto) (0.0-2.0) % Neut # (1.8-7.0) K/uL Lymph # (1.0-4.3) K/uL Powell # (0.0-0.8) K/uL Eos # (0.0-0.7) K/uL Baso # (0.0-0.2) K/uL pCO2 (35-45) mm/Hg pO2 (80-100) mm/Hg HCO3 (21-28) mmol/L ABG pH (7.35-7.45) ABG Total CO2 (22-28) mmol/L ABG O2 Saturation (95-98) % ABG O2 Content (15-23) ML/dL ABG Base Excess (-2.0-3.0) mmol/L ABG Hemoglobin (11.7-17.4) g/dL ABG Carboxyhemoglobin (0.5-1.5) % POC ABG HHb (Measured) (0.0-5.0) % ABG Methemoglobin (0.0-3.0) % ABG O2 Capacity (16-24) mL/dL Torres Test A-a O2 Difference mm/Hg Hgb O2 Saturation (95.0-98.0) % Vent Mode Mechanical Rate FiO2 % Tidal Volume PEEP Sodium (132-148) mmol/l Potassium (3.6-5.0) MMOL/L Chloride (98-107) mmol/L Carbon Dioxide (22-30) mmol/L Anion Gap (10-20) BUN (9-20) mg/dl Creatinine (0.8-1.5) mg/dL Est GFR ( Amer) Est GFR (Non-Af Amer) POC Glucose (mg/dL) 121 H (65-110) mg/dL Random Glucose (75-110) mg/dL Calcium (8.4-10.2) mg/dL Total Bilirubin (0.2-1.3) mg/dl AST (17-59) U/L ALT (21-72) U/L Alkaline Phosphatase (38-126) U/L Total Protein (6.3-8.2) G/DL Albumin (3.5-5.0) g/dL Globulin (2.2-3.9) gm/dL Albumin/Globulin Ratio (1.0-2.1) Laboratory Results - last 24 hr 12/18/16 12/18/16 12/18/16 11:17 16:23 21:33 WBC RBC Hgb Hct MCV MCH MCHC RDW Plt Count MPV Neut % (Auto) Lymph % (Auto) Powell % (Auto) Eos % (Auto) Baso % (Auto) Neut # Lymph # Powell # Eos # Baso # pCO2 pO2 HCO3 ABG pH ABG Total CO2 ABG O2 Saturation ABG O2 Content ABG Base Excess ABG Hemoglobin ABG Carboxyhemoglobin POC ABG HHb (Measured) ABG Methemoglobin ABG O2 Capacity Torres Test A-a O2 Difference Hgb O2 Saturation Vent Mode Mechanical Rate FiO2 Tidal Volume PEEP Sodium Potassium Chloride Carbon Dioxide Anion Gap BUN Creatinine Est GFR ( Amer) Est GFR (Non-Af Amer) POC Glucose (mg/dL) 121 H 127 H 130 H Random Glucose Calcium Total Bilirubin AST ALT Alkaline Phosphatase Total Protein Albumin Globulin Albumin/Globulin Ratio 12/19/16 12/19/16 12/19/16 05:08 05:30 05:30 WBC 7.6 RBC 2.69 L Hgb 8.1 L Hct 25.1 L MCV 93.4 MCH 30.2 MCHC 32.3 L RDW 16.8 H Plt Count 204 MPV 10.2 Neut % (Auto) 50.9 Lymph % (Auto) 34.6 Powell % (Auto) 8.2 Eos % (Auto) 4.8 H Baso % (Auto) 1.5 Neut # 3.8 Lymph # 2.6 Powell # 0.6 Eos # 0.4 Baso # 0.1 pCO2 42 pO2 131 H HCO3 33.1 H ABG pH 7.52 H ABG Total CO2 35.6 H ABG O2 Saturation 100.3 H ABG O2 Content 12.1 L ABG Base Excess 10.5 H ABG Hemoglobin 8.7 L ABG Carboxyhemoglobin 1.5 POC ABG HHb (Measured) -0.3 L ABG Methemoglobin 2.2 ABG O2 Capacity 12.1 L Torres Test Yes A-a O2 Difference 66.0 Hgb O2 Saturation 96.6 Vent Mode Prvc/ac Mechanical Rate 10 FiO2 35.0 Tidal Volume 450 PEEP 5 Sodium 143 Potassium 4.0 Chloride 107 Carbon Dioxide 27 Anion Gap 13 BUN 36 H Creatinine 0.8 Est GFR ( Amer) > 60 Est GFR (Non-Af Amer) > 60 POC Glucose (mg/dL) Random Glucose 114 H Calcium 7.7 L Total Bilirubin 0.3 AST 34 ALT 23 Alkaline Phosphatase 645 H Total Protein 6.5 Albumin 2.3 L Globulin 4.2 H Albumin/Globulin Ratio 0.5 L 12/19/16 06:18 WBC RBC Hgb Hct MCV MCH MCHC RDW Plt Count MPV Neut % (Auto) Lymph % (Auto) Powell % (Auto) Eos % (Auto) Baso % (Auto) Neut # Lymph # Powell # Eos # Baso # pCO2 pO2 HCO3 ABG pH ABG Total CO2 ABG O2 Saturation ABG O2 Content ABG Base Excess ABG Hemoglobin ABG Carboxyhemoglobin POC ABG HHb (Measured) ABG Methemoglobin ABG O2 Capacity Torres Test A-a O2 Difference Hgb O2 Saturation Vent Mode Mechanical Rate FiO2 Tidal Volume PEEP Sodium Potassium Chloride Carbon Dioxide Anion Gap BUN Creatinine Est GFR ( Amer) Est GFR (Non-Af Amer) POC Glucose (mg/dL) 138 H Random Glucose Calcium Total Bilirubin AST ALT Alkaline Phosphatase Total Protein Albumin Globulin Albumin/Globulin Ratio Fingerstick Blood Sugar Results: 138 Assessment/Plan (1) Acute hypercapnic respiratory failure Current Visit: Yes Status: Acute Priority: High Comment: Acute respiratory failure secondary to aspiration pneumonia Not a candidate for vent weaning at this time due to poor mental status Aggressive pulmonary toilet, chest PT, suctioning (2) Aspiration pneumonia Current Visit: Yes Status: Acute Comment: Continue IV Antibiotics with Meropenem & Voriconazole and Flagyl Maintain aspiration precautions (3) Severe sepsis Current Visit: Yes Status: Acute Priority: High Comment: Severe sepsis from UTI and aspiration pneumonia with Klebsiella pneumoniae Continue Meropenem and Voriconazole Continue Flagyl 500 mg PO Q8H (4) C. difficile colitis Current Visit: Yes Status: Acute Comment: Continue Flagyl 500 mg PO Q8H (5) GEORGINA (acute kidney injury) Current Visit: Yes Status: Acute Priority: High (6) Osteomyelitis of right foot Current Visit: Yes Status: Acute (7) Avascular necrosis of bone of right hip Current Visit: No Status: Acute Priority: High Comment: for sx when stable (8) Bacteremia due to Gram-positive bacteria Current Visit: No Status: Acute Priority: High (9) DVT prophylaxis Current Visit: No Status: Acute
--- NOTE | 2016-12-19 11:19 | CP.PCM.PN ---
Subjective - Date & Time of Evaluation Date of Evaluation: 12/19/16 Time of Evaluation: 11:00 - Subjective Subjective: Pt remains intubated on Mech Vent Failed CPAP trial Still with fever + Brown liquid stool per rectal tube - about 200ml sincechange of shift this am Opened his eyes when I walked into his room but does not respond to by questions nor follows simple commands Objective - Vital Signs/Intake and Output Vital Signs (last 24 hours): Temp Pulse Resp BP Pulse Ox 99.7 F H 102 H 21 118/57 L 100 12/19/16 08:00 12/19/16 08:00 12/19/16 08:00 12/19/16 08:00 12/19/16 08:00 Intake and Output: 12/19/16 12/19/16 06:59 18:59 Intake Total 1460 Output Total 750 Balance 710 - Medications Medications: Current Medications Acetaminophen (Tylenol 650mg/20.3ml Solution Ud) 650 mg PO Q6 PRN PRN Reason: fever Last Admin: 12/15/16 23:33 Dose: 650 mg Albuterol/Ipratropium (Duoneb 3 Mg/0.5 Mg (3 Ml) Ud) 3 ml INH RQID [facility] Last Admin: 12/19/16 11:18 Dose: 3 ml Collagenase (Santyl) 1 applic TOP DAILY [facility] Last Admin: 12/18/16 09:12 Dose: 1 applic Furosemide (Lasix) 40 mg PO DAILY LARRY Voriconazole 300 mg/ Sodium (Chloride) 250 mls @ 125 mls/hr IVPB Q12 LARRY Last Admin: 12/18/16 20:20 Dose: 125 mls/hr Meropenem 1 gm/ Sodium (Chloride) 100 mls @ 100 mls/hr IVPB Q12 LARRY Last Admin: 12/19/16 08:47 Dose: 100 mls/hr Insulin Human Lispro (Humalog) 0 units SC Q6 LARRY PRN Reason: Protocol Last Admin: 12/19/16 06:36 Dose: Not Given Metronidazole (Flagyl) 500 mg PO Q8 [facility] Last Admin: 12/19/16 08:48 Dose: 500 mg Nystatin (Nystop Topical Powder) 1 applic TOP TID [facility] Last Admin: 12/19/16 08:48 Dose: 1 pow Pantoprazole Sodium (Protonix Susp) 40 mg PO DAILY [facility] Last Admin: 12/19/16 08:48 Dose: 40 mg - Labs Labs: 12/19/16 05:30 12/19/16 05:30 PT 13.2 Seconds (9.8-13.1) H 12/10/16 04:20 INR 1.3 (0.9-1.2) H 12/10/16 04:20 APTT 35.7 Seconds (25.6-37.1) 12/10/16 04:20 - Constitutional Appears: Older Than Stated Age, Chronically Ill, Other [facility] - Head Exam Head Exam: NORMAL INSPECTION, NORMOCEPHALIC - Eye Exam Eye Exam: EOMI, Normal appearance Pupil Exam: NORMAL ACCOMODATION - ENT Exam ENT Exam: Mucous Membranes Dry, Normal External Ear Exam - Respiratory Exam Respiratory Exam: Rales, Rhonchi Intubated on Vent - Cardiovascular Exam Cardiovascular Exam: REGULAR RHYTHM, +S1, +S2 - GI/Abdominal Exam GI & Abdominal Exam: Soft, Normal Bowel Sounds. absent: Tenderness Rectal tube OGT in place - Extremities Exam Extremities Exam: Normal Capillary Refill, Pedal Edema - Neurological Exam Neurological Exam: Awake Additional comments: Pt is intubated awake but does not follow simple commands - Psychiatric Exam Psychiatric exam: Flat Affect - Skin Skin Exam: Dry, Pallor Assessment and Plan (1) Acute hypercapnic respiratory failure Status: Acute (2) Fungemia Status: Acute (3) Aspiration pneumonia Status: Acute (4) Ventricular arrhythmia Status: Acute (5) Coag negative Staphylococcus bacteremia Status: Acute (6) Anemia Status: Acute (7) Paroxysmal atrial fibrillation with rapid ventricular response Status: Acute (8) Alkaline phosphatase elevation Status: Acute - Assessment and Plan (Free Text) Assessment: Following for Dr Day ( Hospitalist Team is covering while he is on vacation) Pt has a long complicated hospital course -71 y/o gent, was admitted on 11/20 - was intubated then extubated after 4 days and reintubated 12/04 ( he remains intubated since then). He was dx to have Asp PNA, Fungemia, Staph coag neg Bacteremia, C diff Colitis. At present intubated on MV PRVC/ AC mode , awake and alert on IV antibiotics. Rpt CXR today : Diffuse bilateral Infiltrates, unchanged 1. Acute hypercapnic respiratory failure Acute remains intubated on MV PRVC AC mode 10/450/5/35 % , saturating well, lethargic CXR showed worsening left side infiltrate and vascular congestion Continue vent management Failed CPAP trial Continue IV antibiotics and Lasix 40 mg IV daily Need to have discussion with family regarding need for Trach/PEG if unable to extubate 2. Fungemia Acute Blood c/s : yeast, + Saccharomyces Rpt Blood c/s : neg so far ID on consult on Voriconazole # 11 3. Aspiration pneumonia Acute cont IV meropenem # 13 CXR showed worsening left infiltrate and vascular congestion 4. Ventricular arrhythmia, resolved Acute Cardio consulted Dr Barnes 5.Coag negative Staphylococcus bacteremia Acute on IV Meropenem Echo showed no vegetations 6 Anemia, chronic , and acute Acute Transfused 1 unit PRBC + FOBT GI consulted cont PPI 7.Paroxysmal atrial fibrillation with rapid ventricular response Acute rate controlled at present not on anticoag - sec to anemia and + FOBT 8. Alkaline phosphatase elevation Acute unclear etio Alk Phos Isoenz- elevated Renal, Abd Sono : neg Ct abdomen showed no acute pathology , 15 mm stone in renal pelvis, non obstructing 9. GEORGINA, improved Nephrology consulted improved with IVF 10. C diff Colitis, resolving + Stool C diff diarrhea resolved rpt C diff neg pt on PO Flagyl 11.DVT proph off Lovenox due to anemia, + FOBT SCD
--- NOTE | 2016-12-19 11:24 | RAD ---
HISTORY: ETT placement COMPARISON: FINDINGS: LUNGS: DIFFUSE BILATERAL INTERSTITIAL INFILTRATES, UNCHANGED. PLEURA: No significant pleural effusion identified, no pneumothorax apparent. CARDIOVASCULAR: Normal. OSSEOUS STRUCTURES: No significant abnormalities. VISUALIZED UPPER ABDOMEN: Normal. OTHER FINDINGS: ETT above the shira. NG tube in stomach. IMPRESSION: DIFFUSE BILATERAL INTERSTITIAL INFILTRATES, UNCHANGED.
[2016-12-19] MEDS: Santyl Collagenase OINTMENT TOP SCH (17:05)
[2016-12-19] MEDS: Acetaminophen 650mg/20.3ml solution UD PO PRN (17:12)
[2016-12-20 05:05] LABS: BASO % 0.6 % (0.0-2.0); EOS # 0.2 K/uL (0.0-0.7); EOS % 1.9 % (0.0-4.0); HEMATOCRIT 25.4 % (35.0-51.0); LYMPH # 2.3 K/uL (1.0-4.3); LYMPH % 27.6 % (20.0-40.0); MEAN CORPUSCULAR HEMOGLOBIN 29.8 pg (27.0-31.0); MEAN PLATELET VOLUME 10.6 fl (7.2-11.7); MONO # 0.8 K/uL (0.0-0.8); MONO % 9.8 % (0.0-10.0); NEUT % 60.1 % (50.0-75.0); NRBC % 0.1 % (0.0-0.0); RED CELL DISTRIBUTION WIDTH 16.8 % (11.5-14.5); WHITE BLOOD COUNT 8.3 K/uL (4.8-10.8)
[2016-12-20 05:11] LABS: BLOOD UREA NITROGEN 39 mg/dl (9-20); CALCIUM 7.7 mg/dL (8.4-10.2); CARBON DIOXIDE 27 mmol/L (22-30); CHLORIDE 108 mmol/L (98-107); GFR AFRICAN-AMERICAN > 60; GLUCOSE,RANDOM 128 mg/dL (75-110); MAGNESIUM 2.1 MG/DL (1.6-2.3); POTASSIUM 4.4 MMOL/L (3.6-5.0); SODIUM 145 mmol/l (132-148)
[2016-12-20] MEDS: Insulin Lispro (humaLOG) 100 Units/ml Inj SC SCH ×4 (06:26→21:31)
--- NOTE | 2016-12-20 07:27 | CP.CCUPN ---
CCU Subjective - Physician Review Subjective (Free Text): The patient was Seen/interviewed and examined by me at the bedside during ICU round, Medical records reviewed and Management issues were discussed and formulated with the house staff. Off sedations Awake, Does not follows some commands, only open eyes Comfortable, unlabored breathing Afebrile Pt on IV Meropenem and Flagyl Micafungin was switched to voriconazole for for fungemia with sacharomyces. S/p PICC line and TLC removed A Fib/A Flutter on the monitor Not tolerating CPAP trial for more then 45 minutes Tolerating OG tube feeding Moderate amount of white Resp secretions Seen by wound care for sacral wound and left hip area redness. Discussed with the son the diagnosis, treatment plans and alternatives, Awaiting family decision regarding GOC, Trach/Peg 12/20/16 11:43 Patient seen and examined, Events reviewed Sligtly more awake today however still waxing/weaning mental status febrile this morning, Tmx 100.3 BP and HR NL On exam B/L edema improved Labs showing stable H/H, slight worsening renal function BUN/Cr trending up 35/ 0.8-->36/0.8-->39/0.8 Repeat Blood C/S NTD Last 24 H I&O 3070/2450 Changed IV Lasix to PO, same dose 40 mg Daily Tolerated CPAP trail for 2 hours yesterday Placed on CPAP 5, PS 15 in AM, tolerating so far, TV 300s, RR mid 20s and saturating 100% Discussed with the son on the phone today the rationale, risks, and alternatives to treatment with, the son ia in discussion with other family members and he will stopby today to further discuss GOC CCU Objective - Vital Signs / Intake & Output Vital Signs (Last 4 hours): Vital Signs Temp Pulse Resp BP Pulse Ox 12/20/16 06:00 105 H 19 119/73 100 12/20/16 04:00 99.5 F 101 H 18 121/65 100 Intake and Output (Last 8hrs): Intake & Output 12/19/16 12/20/16 12/20/16 22:59 06:59 14:59 Intake Total 1850 820 Output Total 850 Balance 1000 820 Intake: Intake, Piggyback 300 Tube Feeding 1200 720 Free Water Flush 350 100 Output: Urine 800 Urethral (Triplett) 800 Stool 50 Other: # Voids Urethral (Triplett) 500 - Physical Exam Head: Positive for: Normocephalic Pupils: Positive for: PERRL Extroacular Muscles: Positive for: EOMI. Negative for: Gaze Palsy Conjunctiva: Negative for: Injected, Icteric Mouth: Positive for: Moist Mucous Membranes (ET tube, OG tube in place) Neck: Positive for: Normal Range of Motion. Negative for: Meningeal Signs, JVD , Lymphadenopathy Respiratory/Chest: Positive for: Decreased Breath Sounds. Negative for: Accessory Muscle Use, Wheezes, Rhonchi Cardiovascular: Positive for: Regular Rate and Rhythm. Negative for: Murmurs, Rub Abdomen: Positive for: Normal Bowel Sounds. Negative for: Tenderness, Distention Rectal: Positive for: Other (rectal tube with liquid brown stool) Upper Extremity: Positive for: Edema (significant bilateral pitting edema, 2 left hand IV's in place, weak b/l hand articulation officer when prompted) Lower Extremity: Positive for: Edema (pitting, bilateral), Other (osteomyelitis of right foot). Negative for: CALF TENDERNESS, Cyanosis Neurological: Positive for: Other (alert and awake when prompted, follows simple commands-hand articulation officer and nods head) Skin: Positive for: Warm, Other (multiple ulcers (sacral, left hip, right foot)- wound care on board). Negative for: Rashes Psychiatric: Positive for: Alert (when prompted, follows simple commands). Negative for: Lethargic - Medications Active Medications: Active Medications Generic Name Dose Route Start Last Admin Trade Name Freq PRN Reason Stop Dose Admin Acetaminophen 650 mg 12/12/16 21:03 12/19/16 17:12 Tylenol 650mg/20.3ml Solution Ud PO 650 mg Q6 PRN Administration fever Albuterol/Ipratropium 3 ml 12/09/16 12:00 12/19/16 19:28 Duoneb 3 Mg/0.5 Mg (3 Ml) Ud INH 3 ml RQID LARRY Administration Collagenase 1 applic 12/08/16 16:15 12/19/16 17:05 Santyl TOP 1 applic DAILY LARRY Administration Furosemide 40 mg 12/19/16 09:15 12/19/16 12:12 Lasix PO 40 mg DAILY LARRY Administration Voriconazole 300 mg/ Sodium 250 mls @ 125 mls/hr 12/10/16 09:00 12/19/16 20: 26 Chloride IVPB 125 mls/hr Q12 LARRY Administration Meropenem 1 gm/ Sodium 100 mls @ 100 mls/hr 12/13/16 21:00 12/19/16 20:26 Chloride IVPB 100 mls/hr Q12 LARRY Administration Insulin Human Lispro 0 units 12/06/16 22:00 12/20/16 06:26 Humalog SC Not Given Q6 LARRY Protocol Metronidazole 500 mg 12/13/16 17:00 12/20/16 00:04 Flagyl PO 500 mg Q8 LARRY Administration Nystatin 1 applic 12/08/16 17:00 12/19/16 17:05 Nystop Topical Powder TOP 1 pow TID LARRY Administration Pantoprazole Sodium 40 mg 12/16/16 09:00 12/19/16 08:48 Protonix Susp PO 40 mg DAILY LARRY Administration - Patient Studies Lab Studies: Microbiology Studies 12/16/16 16:40 Blood Culture - Preliminary Blood-Venous NO GROWTH AFTER 3 DAYS Lab Studies 12/20/16 12/20/16 12/20/16 Range/Units 04:46 04:45 04:45 WBC 8.3 (4.8-10.8) K/uL RBC 2.73 L (4.40-5.90) Mil/uL Hgb 8.1 L (12.0-18.0) g/dL Hct 25.4 L (35.0-51.0) % MCV 93.0 (80.0-94.0) fl MCH 29.8 (27.0-31.0) pg MCHC 32.0 L (33.0-37.0) g/dL RDW 16.8 H (11.5-14.5) % Plt Count 196 (130-400) K/uL MPV 10.6 (7.2-11.7) fl Neut % (Auto) 60.1 (50.0-75.0) % Lymph % (Auto) 27.6 (20.0-40.0) % [place] % (Auto) 9.8 (0.0-10.0) % Eos % (Auto) 1.9 (0.0-4.0) % Baso % (Auto) 0.6 (0.0-2.0) % Neut # 5.0 (1.8-7.0) K/uL Lymph # 2.3 (1.0-4.3) K/uL [place] # 0.8 (0.0-0.8) K/uL Eos # 0.2 (0.0-0.7) K/uL Baso # 0.0 (0.0-0.2) K/uL Sodium 145 (132-148) mmol/l Potassium 4.4 (3.6-5.0) MMOL/L Chloride 108 H (98-107) mmol/L Carbon Dioxide 27 (22-30) mmol/L Anion Gap 14 (10-20) BUN 39 H (9-20) mg/dl Creatinine 0.8 (0.8-1.5) mg/dL Est GFR ( Amer) > 60 Est GFR (Non-Af Amer) > 60 POC Glucose (mg/dL) 126 H (65-110) mg/dL Random Glucose 128 H (75-110) mg/dL Calcium 7.7 L (8.4-10.2) mg/dL Magnesium 2.1 (1.6-2.3) MG/DL 12/19/16 12/19/16 12/19/16 Range/Units 22:12 16:10 06:56 WBC (4.8-10.8) K/uL RBC (4.40-5.90) Mil/uL Hgb (12.0-18.0) g/dL Hct (35.0-51.0) % MCV (80.0-94.0) fl MCH (27.0-31.0) pg MCHC (33.0-37.0) g/dL RDW (11.5-14.5) % Plt Count (130-400) K/uL MPV (7.2-11.7) fl Neut % (Auto) (50.0-75.0) % Lymph % (Auto) (20.0-40.0) % [place] % (Auto) (0.0-10.0) % Eos % (Auto) (0.0-4.0) % Baso % (Auto) (0.0-2.0) % Neut # (1.8-7.0) K/uL Lymph # (1.0-4.3) K/uL [place] # (0.0-0.8) K/uL Eos # (0.0-0.7) K/uL Baso # (0.0-0.2) K/uL Sodium (132-148) mmol/l Potassium (3.6-5.0) MMOL/L Chloride (98-107) mmol/L Carbon Dioxide (22-30) mmol/L Anion Gap (10-20) BUN (9-20) mg/dl Creatinine (0.8-1.5) mg/dL Est GFR ( Amer) Est GFR (Non-Af Amer) POC Glucose (mg/dL) 149 H 122 H 142 H (65-110) mg/dL Random Glucose (75-110) mg/dL Calcium (8.4-10.2) mg/dL Magnesium (1.6-2.3) MG/DL Laboratory Results - last 24 hr 12/19/16 12/19/16 12/19/16 06:56 16:10 22:12 WBC RBC Hgb Hct MCV MCH MCHC RDW Plt Count MPV Neut % (Auto) Lymph % (Auto) [place] % (Auto) Eos % (Auto) Baso % (Auto) Neut # Lymph # [place] # Eos # Baso # Sodium Potassium Chloride Carbon Dioxide Anion Gap BUN Creatinine Est GFR ( Amer) Est GFR (Non-Af Amer) POC Glucose (mg/dL) 142 H 122 H 149 H Random Glucose Calcium Magnesium 12/20/16 12/20/16 12/20/16 04:45 04:45 04:46 WBC 8.3 RBC 2.73 L Hgb 8.1 L Hct 25.4 L MCV 93.0 MCH 29.8 MCHC 32.0 L RDW 16.8 H Plt Count 196 MPV 10.6 Neut % (Auto) 60.1 Lymph % (Auto) 27.6 [place] % (Auto) 9.8 Eos % (Auto) 1.9 Baso % (Auto) 0.6 Neut # 5.0 Lymph # 2.3 [place] # 0.8 Eos # 0.2 Baso # 0.0 Sodium 145 Potassium 4.4 Chloride 108 H Carbon Dioxide 27 Anion Gap 14 BUN 39 H Creatinine 0.8 Est GFR ( Amer) > 60 Est GFR (Non-Af Amer) > 60 POC Glucose (mg/dL) 126 H Random Glucose 128 H Calcium 7.7 L Magnesium 2.1 Fingerstick Blood Sugar Results: 126 Assessment/Plan (1) Acute hypercapnic respiratory failure Current Visit: Yes Status: Acute Priority: High Comment: Acute respiratory failure secondary to aspiration pneumonia Not a candidate for vent weaning at this time due to poor mental status Aggressive pulmonary toilet, chest PT, suctioning (2) Aspiration pneumonia Current Visit: Yes Status: Acute Comment: Continue IV Antibiotics with Meropenem & Voriconazole and Flagyl Maintain aspiration precautions (3) Severe sepsis Current Visit: Yes Status: Acute Priority: High Comment: Severe sepsis from UTI and aspiration pneumonia with Klebsiella pneumoniae Continue Meropenem and Voriconazole Continue Flagyl 500 mg PO Q8H (4) C. difficile colitis Current Visit: Yes Status: Acute Comment: Continue Flagyl 500 mg PO Q8H Repeat stool sample on 11/24 negative for C Diff toxin B and the Ag also negative on 12/01 (5) GEORGINA (acute kidney injury) Current Visit: Yes Status: Acute Priority: High (6) Osteomyelitis of right foot Current Visit: Yes Status: Acute (7) Avascular necrosis of bone of right hip Current Visit: No Status: Acute Priority: High Comment: for sx when stable (8) Bacteremia due to Gram-positive bacteria Current Visit: No Status: Acute Priority: High (9) DVT prophylaxis Current Visit: No Status: Acute
[2016-12-20] MEDS: Albuterol-Ipratrop 3 mg / 0.5 (3 ml) UD INH SCH ×4 (07:57→19:26)
[2016-12-20] MEDS: Meropenem 1 GM in Sodium Chloride 0.9% 100 ML IVPB SCH ×2 (08:21→20:10)
[2016-12-20] MEDS: Santyl Collagenase OINTMENT TOP SCH (08:25)
[2016-12-20] MEDS: Pantoprazole 40 mg Susp UD PO SCH (08:30)
[2016-12-20] MEDS: Acetaminophen 650mg/20.3ml solution UD PO PRN (10:00)
--- NOTE | 2016-12-20 12:51 | CP.PCM.PN ---
Subjective - Date & Time of Evaluation Date of Evaluation: 12/20/16 Time of Evaluation: 12:51 - Subjective Subjective: ID Note- Pt. seen and examined today in ICU. remains intubated. does not follow commands. Objective - Vital Signs/Intake and Output Vital Signs (last 24 hours): Temp Pulse Resp BP Pulse Ox 100.0 F H 112 H 22 133/89 99 12/20/16 11:00 12/20/16 10:00 12/20/16 10:00 12/20/16 10:00 12/20/16 10:00 Intake and Output: 12/20/16 12/20/16 06:59 18:59 Intake Total 1510 580 Balance 1510 580 - Medications Medications: Current Medications Acetaminophen (Tylenol 650mg/20.3ml Solution Ud) 650 mg PO Q6 PRN PRN Reason: fever Last Admin: 12/20/16 10:00 Dose: 650 mg Albuterol/Ipratropium (Duoneb 3 Mg/0.5 Mg (3 Ml) Ud) 3 ml INH RQID [facility] Last Admin: 12/20/16 11:07 Dose: 3 ml Collagenase (Santyl) 1 applic TOP DAILY [facility] Last Admin: 12/20/16 08:25 Dose: 1 applic Furosemide (Lasix) 40 mg PO DAILY [facility] Last Admin: 12/20/16 08:22 Dose: 40 mg Voriconazole 300 mg/ Sodium (Chloride) 250 mls @ 125 mls/hr IVPB Q12 LARRY Last Admin: 12/20/16 10:17 Dose: 125 mls/hr Meropenem 1 gm/ Sodium (Chloride) 100 mls @ 100 mls/hr IVPB Q12 LARRY Last Admin: 12/20/16 08:21 Dose: 100 mls/hr Insulin Human Lispro (Humalog) 0 units SC Q6 LARRY PRN Reason: Protocol Last Admin: 12/20/16 09:33 Dose: Not Given Metronidazole (Flagyl) 500 mg PO Q8 [facility] Last Admin: 12/20/16 08:22 Dose: 500 mg Nystatin (Nystop Topical Powder) 1 applic TOP TID [facility] Last Admin: 12/20/16 08:23 Dose: 1 pow Pantoprazole Sodium (Protonix Inj) 40 mg IVP DAILY [facility] Last Admin: 12/20/16 10:38 Dose: Not Given - Labs Labs: - Additional Findings Additional findings: - Constitutional Appears: Chronically Ill - ENT Exam Additional comments: ET tube in place has OGT as well - Neck Exam Additional comments: supple - Respiratory Exam Additional comments: intubated and on the vent - Cardiovascular Exam Cardiovascular Exam: RRR, +S1, +S2 - GI/Abdominal Exam GI & Abdominal Exam: Soft, Normal Bowel Sounds Additional comments: ND, NT - Extremities Exam Additional comments: dry b/l heel ulcers, no discharge - Neurological Exam Additional comments: intubated , does not follow commands Laboratory Results - last 72 hr 12/17/16 12/17/16 12/18/16 16:40 22:19 05:00 WBC 7.7 RBC 2.79 L Hgb 8.2 L Hct 25.9 L MCV 92.8 MCH 29.5 MCHC 31.8 L RDW 16.5 H Plt Count 216 MPV Neut % (Auto) Lymph % (Auto) [place] % (Auto) Eos % (Auto) Baso % (Auto) Neut # Lymph # [place] # Eos # Baso # pCO2 pO2 HCO3 ABG pH ABG Total CO2 ABG O2 Saturation ABG O2 Content ABG Base Excess ABG Hemoglobin ABG Carboxyhemoglobin POC ABG HHb (Measured) ABG Methemoglobin ABG O2 Capacity Torres Test A-a O2 Difference Hgb O2 Saturation Vent Mode Mechanical Rate FiO2 Tidal Volume PEEP Sodium Potassium Chloride Carbon Dioxide Anion Gap BUN Creatinine Est GFR ( Amer) Est GFR (Non-Af Amer) POC Glucose (mg/dL) 132 H 124 H Random Glucose Calcium Magnesium Total Bilirubin AST ALT Alkaline Phosphatase Total Protein Albumin Globulin Albumin/Globulin Ratio 12/18/16 12/18/16 12/18/16 05:00 05:01 05:17 WBC RBC Hgb Hct MCV MCH MCHC RDW Plt Count MPV Neut % (Auto) Lymph % (Auto) [place] % (Auto) Eos % (Auto) Baso % (Auto) Neut # Lymph # [place] # Eos # Baso # pCO2 37 pO2 110 H HCO3 34.2 H ABG pH 7.58 H ABG Total CO2 35.8 H ABG O2 Saturation 99.5 H ABG O2 Content 10.5 L ABG Base Excess 11.8 H ABG Hemoglobin 7.5 L ABG Carboxyhemoglobin 1.0 POC ABG HHb (Measured) 0.5 ABG Methemoglobin 1.3 ABG O2 Capacity 10.6 L Torres Test Yes A-a O2 Difference 93.0 Hgb O2 Saturation 97.2 Vent Mode Prvc/ac Mechanical Rate 10 FiO2 35.0 Tidal Volume 450 PEEP 5 Sodium 142 Potassium 3.9 Chloride 107 Carbon Dioxide 29 Anion Gap 11 BUN 35 H Creatinine 0.8 Est GFR ( Amer) > 60 Est GFR (Non-Af Amer) > 60 POC Glucose (mg/dL) 102 Random Glucose 89 Calcium 7.9 L Magnesium Total Bilirubin AST ALT Alkaline Phosphatase Total Protein Albumin Globulin Albumin/Globulin Ratio 12/18/16 12/18/16 12/18/16 11:17 16:23 21:33 WBC RBC Hgb Hct MCV MCH MCHC RDW Plt Count MPV Neut % (Auto) Lymph % (Auto) [place] % (Auto) Eos % (Auto) Baso % (Auto) Neut # Lymph # [place] # Eos # Baso # pCO2 pO2 HCO3 ABG pH ABG Total CO2 ABG O2 Saturation ABG O2 Content ABG Base Excess ABG Hemoglobin ABG Carboxyhemoglobin POC ABG HHb (Measured) ABG Methemoglobin ABG O2 Capacity Torres Test A-a O2 Difference Hgb O2 Saturation Vent Mode Mechanical Rate FiO2 Tidal Volume PEEP Sodium Potassium Chloride Carbon Dioxide Anion Gap BUN Creatinine Est GFR ( Amer) Est GFR (Non-Af Amer) POC Glucose (mg/dL) 121 H 127 H 130 H Random Glucose Calcium Magnesium Total Bilirubin AST ALT Alkaline Phosphatase Total Protein Albumin Globulin Albumin/Globulin Ratio 12/19/16 12/19/16 12/19/16 05:08 05:30 05:30 WBC 7.6 RBC 2.69 L Hgb 8.1 L Hct 25.1 L MCV 93.4 MCH 30.2 MCHC 32.3 L RDW 16.8 H Plt Count 204 MPV 10.2 Neut % (Auto) 50.9 Lymph % (Auto) 34.6 [place] % (Auto) 8.2 Eos % (Auto) 4.8 H Baso % (Auto) 1.5 Neut # 3.8 Lymph # 2.6 [place] # 0.6 Eos # 0.4 Baso # 0.1 pCO2 42 pO2 131 H HCO3 33.1 H ABG pH 7.52 H ABG Total CO2 35.6 H ABG O2 Saturation 100.3 H ABG O2 Content 12.1 L ABG Base Excess 10.5 H ABG Hemoglobin 8.7 L ABG Carboxyhemoglobin 1.5 POC ABG HHb (Measured) -0.3 L ABG Methemoglobin 2.2 ABG O2 Capacity 12.1 L Torres Test Yes A-a O2 Difference 66.0 Hgb O2 Saturation 96.6 Vent Mode Prvc/ac Mechanical Rate 10 FiO2 35.0 Tidal Volume 450 PEEP 5 Sodium 143 Potassium 4.0 Chloride 107 Carbon Dioxide 27 Anion Gap 13 BUN 36 H Creatinine 0.8 Est GFR ( Amer) > 60 Est GFR (Non-Af Amer) > 60 POC Glucose (mg/dL) Random Glucose 114 H Calcium 7.7 L Magnesium Total Bilirubin 0.3 AST 34 ALT 23 Alkaline Phosphatase 645 H Total Protein 6.5 Albumin 2.3 L Globulin 4.2 H Albumin/Globulin Ratio 0.5 L 12/19/16 12/19/16 12/19/16 06:18 06:56 16:10 WBC RBC Hgb Hct MCV MCH MCHC RDW Plt Count MPV Neut % (Auto) Lymph % (Auto) [place] % (Auto) Eos % (Auto) Baso % (Auto) Neut # Lymph # [place] # Eos # Baso # pCO2 pO2 HCO3 ABG pH ABG Total CO2 ABG O2 Saturation ABG O2 Content ABG Base Excess ABG Hemoglobin ABG Carboxyhemoglobin POC ABG HHb (Measured) ABG Methemoglobin ABG O2 Capacity Torres Test A-a O2 Difference Hgb O2 Saturation Vent Mode Mechanical Rate FiO2 Tidal Volume PEEP Sodium Potassium Chloride Carbon Dioxide Anion Gap BUN Creatinine Est GFR ( Amer) Est GFR (Non-Af Amer) POC Glucose (mg/dL) 138 H 142 H 122 H Random Glucose Calcium Magnesium Total Bilirubin AST ALT Alkaline Phosphatase Total Protein Albumin Globulin Albumin/Globulin Ratio 12/19/16 12/20/16 12/20/16 22:12 04:45 04:45 WBC 8.3 RBC 2.73 L Hgb 8.1 L Hct 25.4 L MCV 93.0 MCH 29.8 MCHC 32.0 L RDW 16.8 H Plt Count 196 MPV 10.6 Neut % (Auto) 60.1 Lymph % (Auto) 27.6 [place] % (Auto) 9.8 Eos % (Auto) 1.9 Baso % (Auto) 0.6 Neut # 5.0 Lymph # 2.3 [place] # 0.8 Eos # 0.2 Baso # 0.0 pCO2 pO2 HCO3 ABG pH ABG Total CO2 ABG O2 Saturation ABG O2 Content ABG Base Excess ABG Hemoglobin ABG Carboxyhemoglobin POC ABG HHb (Measured) ABG Methemoglobin ABG O2 Capacity Torres Test A-a O2 Difference Hgb O2 Saturation Vent Mode Mechanical Rate FiO2 Tidal Volume PEEP Sodium 145 Potassium 4.4 Chloride 108 H Carbon Dioxide 27 Anion Gap 14 BUN 39 H Creatinine 0.8 Est GFR ( Amer) > 60 Est GFR (Non-Af Amer) > 60 POC Glucose (mg/dL) 149 H Random Glucose 128 H Calcium 7.7 L Magnesium 2.1 Total Bilirubin AST ALT Alkaline Phosphatase Total Protein Albumin Globulin Albumin/Globulin Ratio 12/20/16 04:46 WBC RBC Hgb Hct MCV MCH MCHC RDW Plt Count MPV Neut % (Auto) Lymph % (Auto) [place] % (Auto) Eos % (Auto) Baso % (Auto) Neut # Lymph # [place] # Eos # Baso # pCO2 pO2 HCO3 ABG pH ABG Total CO2 ABG O2 Saturation ABG O2 Content ABG Base Excess ABG Hemoglobin ABG Carboxyhemoglobin POC ABG HHb (Measured) ABG Methemoglobin ABG O2 Capacity Torres Test A-a O2 Difference Hgb O2 Saturation Vent Mode Mechanical Rate FiO2 Tidal Volume PEEP Sodium Potassium Chloride Carbon Dioxide Anion Gap BUN Creatinine Est GFR ( Amer) Est GFR (Non-Af Amer) POC Glucose (mg/dL) 126 H Random Glucose Calcium Magnesium Total Bilirubin AST ALT Alkaline Phosphatase Total Protein Albumin Globulin Albumin/Globulin Ratio Microbiology 12/16/16 16:40 Blood-Venous Blood Culture - Preliminary NO GROWTH AFTER 3 DAYS 12/13/16 16:45 Blood-Venous Blood Culture - Final NO GROWTH AFTER 5 DAYS 12/13/16 16:45 Blood-Venous Gram Stain - Final TEST NOT PERFORMED 12/13/16 16:45 Blood-Venous Blood Culture - Final NO GROWTH AFTER 5 DAYS 12/13/16 16:45 Blood-Venous Gram Stain - Final TEST NOT PERFORMED 12/04/16 17:00 Trachasp Gram Stain - Final 12/04/16 17:00 Trachasp Sputum Culture - Final NORMAL ORAL ROSEMARY 12/14/16 17:45 Urine,No Urine Culture - Final No Growth (<1,000 CFU/ML) 12/10/16 18:30 Blood-Venous Blood Culture - Final NO GROWTH AFTER 5 DAYS 12/10/16 18:30 Blood-Venous Gram Stain - Final TEST NOT PERFORMED 12/10/16 18:30 Blood-Venous Blood Culture - Final NO GROWTH AFTER 5 DAYS 12/10/16 18:30 Blood-Venous Gram Stain - Final TEST NOT PERFORMED 12/06/16 17:30 Blood-Venous Blood Culture - Final NO GROWTH AFTER 5 DAYS 12/06/16 17:30 Blood-Venous Gram Stain - Final TEST NOT PERFORMED 12/06/16 17:50 Blood-Venous Blood Culture - Final NO GROWTH AFTER 5 DAYS 12/06/16 17:50 Blood-Venous Gram Stain - Final TEST NOT PERFORMED 12/04/16 00:10 Blood-Venous Blood Culture - Final Saccharomyces Cerevisiae 12/04/16 00:10 Blood-Venous Gram Stain - Final 12/04/16 00:10 Blood-Venous S.aureus & Coag-Neg Staph PNA FISH - Final 12/04/16 00:10 Blood-Venous Blood Culture - Final Saccharomyces Cerevisiae 12/04/16 00:10 Blood-Venous Gram Stain - Final 12/04/16 14:00 Blood S.aureus & Coag-Neg Staph PNA FISH - Final 12/04/16 14:00 Blood Blood Culture - Final Saccharomyces Cerevisiae 12/04/16 14:00 Blood Gram Stain - Final 12/04/16 18:00 Blood-Thru Central Line S.aureus & Coag-Neg Staph PNA FISH - Final 12/04/16 18:00 Blood-Thru Central Line Blood Culture - Final Saccharomyces Cerevisiae 12/04/16 18:00 Blood-Thru Central Line Gram Stain - Final 12/04/16 16:50 Urine,No Urine Culture - Final Yeast Species 12/04/16 18:00 Naris MRSA Culture (Admit) - Final MRSA DETECTED 12/04/16 02:05 Urine,No Urine Culture - Final Yeast Species 11/26/16 20:01 Nose MRSA Culture (Admit) - Final MRSA NOT DETECTED 11/20/16 10:00 Blood-Venous Blood Culture - Final NO GROWTH AFTER 5 DAYS 11/20/16 10:00 Blood-Venous Gram Stain - Final TEST NOT PERFORMED 11/21/16 10:00 Trachasp Gram Stain - Final 11/21/16 10:00 Trachasp Sputum Culture - Final Klebsiella Pneumoniae Ssp Pneu 11/20/16 15:00 Nose MRSA Culture (Admit) - Final MRSA NOT DETECTED 11/20/16 01:57 Urine,No Urine Culture - Final No Growth (<1,000 CFU/ML) Accession No. : [id number] Patient Name / ID : GRACE ANTON / [id number] Exam Date : 12/19/2016 08:12:47 ( Approved ) Study Comment : Sex / Age : M / 71Y Creator : Bereket Rosario MD Dictator : Bereket Rosario MD Hotbed Lever Operator : [employer] Fab[employer]ator Assembler : Bereket Rosario MD Approver2 : Report Date : 12/19/2016 11:19:04 My Comment : HISTORY: ETT placement COMPARISON: FINDINGS: LUNGS: DIFFUSE BILATERAL INTERSTITIAL INFILTRATES, UNCHANGED. PLEURA: No significant pleural effusion identified, no pneumothorax apparent. CARDIOVASCULAR: Normal. OSSEOUS STRUCTURES: No significant abnormalities. VISUALIZED UPPER ABDOMEN: Normal. OTHER FINDINGS: ETT above the shira. NG tube in stomach. IMPRESSION: DIFFUSE BILATERAL INTERSTITIAL INFILTRATES, UNCHANGED. Assessment and Plan (1) Respiratory failure Status: Acute (2) Septic shock Status: Acute (3) GEORGINA (acute kidney injury) Status: Acute (4) Fever Status: Acute (5) Fungemia Status: Acute - Assessment and Plan (Free Text) Assessment: A/P- low grade fever today. was afebrile past48 hours no changed 5 days ago normal wbc count blood cx from 12/04/2016- 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 repeat stool c.diff- negative tox and AG repeat blood cx from 12/06/2016- negative x 2 repeat blood cx from 12/10/2016- negative x 2 repeat blood cx fr 12/13/2016-neg x 2 CT abd/pelvis- as per report no perf, no free air and normal bowel. b/l pleural effusion. cxr- as per report b/l interstitial infiltrates. pneumonia/resp distress fungemia is on antifungal medication, repeat blood cx are all negative c.diff - resolved fungurea Plan- continue with meropenem for HAP , day #13. for HAP. completed 2 days of Micafungin for fungemia but once yeast was ID as sacharomyces was switched to voriconazole. day #11 TTE- no vegetations as per report. continue with voriconazole. advise to add Iv vancomycin as well since pt. continues to have interstitial infiltrates and remains on vent. keep trough <15. check repeat sputum cx and blood cx today. ICU time 45 minutes.
--- NOTE | 2016-12-20 15:23 | CP.PCM.PN ---
Subjective - Date & Time of Evaluation Date of Evaluation: 12/20/16 Time of Evaluation: 11:00 - Subjective Subjective: F/U respiratory failure. Pt lethargic, arousable to tactile stimuli, intubatedon PRVC/AC 35% FIO2. Objective - Vital Signs/Intake and Output Vital Signs (last 24 hours): Temp Pulse Resp BP Pulse Ox 100.0 F H 112 H 22 133/89 99 12/20/16 11:00 12/20/16 10:00 12/20/16 10:00 12/20/16 10:00 12/20/16 10:00 Intake and Output: 12/20/16 12/20/16 06:59 18:59 Intake Total 1510 580 Balance 1510 580 - Medications Medications: Current Medications Acetaminophen (Tylenol 650mg/20.3ml Solution Ud) 650 mg PO Q6 PRN PRN Reason: fever Last Admin: 12/20/16 10:00 Dose: 650 mg Albuterol/Ipratropium (Duoneb 3 Mg/0.5 Mg (3 Ml) Ud) 3 ml INH RQID [facility] Last Admin: 12/20/16 11:07 Dose: 3 ml Collagenase (Santyl) 1 applic TOP DAILY [facility] Last Admin: 12/20/16 08:25 Dose: 1 applic Furosemide (Lasix) 40 mg PO DAILY [facility] Last Admin: 12/20/16 08:22 Dose: 40 mg Voriconazole 300 mg/ Sodium (Chloride) 250 mls @ 125 mls/hr IVPB Q12 [facility] Last Admin: 12/20/16 10:17 Dose: 125 mls/hr Meropenem 1 gm/ Sodium (Chloride) 100 mls @ 100 mls/hr IVPB Q12 [facility] Last Admin: 12/20/16 08:21 Dose: 100 mls/hr Insulin Human Lispro (Humalog) 0 units SC Q6 [facility] PRN Reason: Protocol Last Admin: 12/20/16 09:33 Dose: Not Given Metronidazole (Flagyl) 500 mg PO Q8 [facility] Last Admin: 12/20/16 08:22 Dose: 500 mg Nystatin (Nystop Topical Powder) 1 applic TOP TID [facility] Last Admin: 12/20/16 08:23 Dose: 1 pow Pantoprazole Sodium (Protonix Inj) 40 mg IVP DAILY [facility] Last Admin: 12/20/16 10:38 Dose: Not Given - Labs Labs: 12/20/16 04:45 12/20/16 04:45 PT 13.2 Seconds (9.8-13.1) H 12/10/16 04:20 INR 1.3 (0.9-1.2) H 12/10/16 04:20 APTT 35.7 Seconds (25.6-37.1) 12/10/16 04:20 - Constitutional Appears: Chronically Ill - Head Exam Head Exam: NORMAL INSPECTION - Eye Exam Eye Exam: PERRL - ENT Exam Additional comments: ET and OG tube in place. - Neck Exam Neck Exam: Normal Inspection - Respiratory Exam Respiratory Exam: Decreased Breath Sounds (a bases), Rhonchi (scattered) - Cardiovascular Exam Cardiovascular Exam: REGULAR RHYTHM - GI/Abdominal Exam GI & Abdominal Exam: Soft, Normal Bowel Sounds - Extremities Exam Additional comments: Edema upper extremities, L hip, R foot ulcer. - Back Exam Additional comments: Sacral ulcer - Neurological Exam Neurological Exam: Awake Additional comments: Eyes open to verbal stimuli, does not follows simple commands, generalized weakness. - Psychiatric Exam Psychiatric exam: Flat Affect - Skin Skin Exam: Warm Additional comments: Multiple ulcers, see above. Assessment and Plan (1) Acute hypercapnic respiratory failure Status: Acute (2) Klebsiella pneumonia Assessment & Plan: Improved Status: Acute (3) Dehydration Status: Acute (4) Septic shock Status: Resolved (5) GEORGINA (acute kidney injury) Status: Acute (6) Type 2 diabetes mellitus with hyperglycemia Status: Chronic (7) HTN (hypertension) Status: Chronic (8) C. difficile colitis Status: Acute (9) Alkaline phosphatase elevation Status: Acute (10) Fungemia Status: Acute - Assessment and Plan (Free Text) Plan: Continue Meropenem, Vanco, Flagyl and rest of Tx. Awaiting family decision for Trach/Peg. ICU Time: 38 min.
[2016-12-21 05:38] LABS: HEMATOCRIT 27.7 % (35.0-51.0); MEAN CELL VOLUME 92.1 fl (80.0-94.0); MEAN CORPUSCULAR HEMOGLOBIN 30.2 pg (27.0-31.0); MEAN CORPUSCULAR HGB CONC 32.7 g/dL (33.0-37.0); RED CELL DISTRIBUTION WIDTH 16.6 % (11.5-14.5); WHITE BLOOD COUNT 9.1 K/uL (4.8-10.8)
[2016-12-21] MEDS: Insulin Lispro (humaLOG) 100 Units/ml Inj SC SCH ×4 (06:40→21:10)
[2016-12-21 07:36] LABS: BLOOD UREA NITROGEN 38 mg/dl (9-20); CALCIUM 7.8 mg/dL (8.4-10.2); CARBON DIOXIDE 29 mmol/L (22-30); CHLORIDE 107 mmol/L (98-107); GFR AFRICAN-AMERICAN > 60; GLUCOSE,RANDOM 108 mg/dL (75-110); POTASSIUM 4.2 MMOL/L (3.6-5.0); SODIUM 144 mmol/l (132-148)
[2016-12-21] MEDS: Albuterol-Ipratrop 3 mg / 0.5 (3 ml) UD INH SCH ×4 (07:54→19:36)
--- NOTE | 2016-12-21 08:39 | CP.CCUPN ---
CCU Subjective - Physician Review Subjective (Free Text): 12/20/16 11:43 Patient seen and examined, Events reviewed Sligtly more awake today however still waxing/weaning mental status febrile this morning, Tmx 100.3 BP and HR NL On exam B/L edema improved Labs showing stable H/H, slight worsening renal function BUN/Cr trending up 35/ 0.8-->36/0.8-->39/0.8 Repeat Blood C/S NTD Last 24 H I&O 3070/2450 Changed IV Lasix to PO, same dose 40 mg Daily Tolerated CPAP trail for 2 hours yesterday Placed on CPAP 5, PS 15 in AM, tolerating so far, TV 300s, RR mid 20s and saturating 100% Discussed with the son on the phone today the rationale, risks, and alternatives to treatment with, the son ia in discussion with other family members and he will stopby today to further discuss GOC 12/21/16 15:43 The patient was Seen/interviewed and examined by me at the bedside during ICU round, Medical records reviewed and Management issues were discussed and formulated with the house staff. Off sedations Awake, does not follows some commands, only open eyes Comfortable, unlabored breathing Afebrile Pt on IV Meropenem and Flagyl Micafungin was switched to voriconazole for for fungemia with sacharomyces. S/p PICC line and TLC removed A Fib/A Flutter on the monitor Not tolerating CPAP trial for more than 45 minutes Tolerating OG tube feeding Moderate amount of white Resp secretions Seen by wound care for sacral wound and left hip area redness. Discussed with the son the diagnosis, treatment plans and alternatives last night, family want to pursue for Trach/Peg. CCU Objective - Vital Signs / Intake & Output Vital Signs (Last 4 hours): Vital Signs Pulse Resp BP Pulse Ox 12/21/16 06:00 127 H 22 123/73 100 Intake and Output (Last 8hrs): Intake & Output 12/20/16 12/21/16 12/21/16 22:59 06:59 14:59 Intake Total 950 870 Output Total 1500 60 Balance -550 810 Intake: Intake, Piggyback 550 Tube Feeding 400 720 Free Water Flush 150 Output: Urine 1500 60 Urethral (Triplett) 1500 60 - Physical Exam Head: Positive for: Normocephalic Pupils: Positive for: PERRL Extroacular Muscles: Positive for: EOMI. Negative for: Gaze Palsy Conjunctiva: Negative for: Injected, Icteric Mouth: Positive for: Moist Mucous Membranes (ET tube, OG tube in place) Neck: Positive for: Normal Range of Motion. Negative for: Meningeal Signs, JVD , Lymphadenopathy Respiratory/Chest: Positive for: Decreased Breath Sounds. Negative for: Accessory Muscle Use, Wheezes, Rhonchi Cardiovascular: Positive for: Regular Rate and Rhythm. Negative for: Murmurs, Rub Abdomen: Positive for: Normal Bowel Sounds. Negative for: Tenderness, Distention Rectal: Positive for: Other (rectal tube with liquid brown stool) Upper Extremity: Positive for: Edema (significant bilateral pitting edema, 2 left hand IV's in place, weak b/l hand conductor orchestra when prompted) Lower Extremity: Positive for: Edema (pitting, bilateral), Other (osteomyelitis of right foot). Negative for: CALF TENDERNESS, Cyanosis Neurological: Positive for: Other (alert and awake when prompted, follows simple commands-hand conductor orchestra and nods head) Skin: Positive for: Warm, Other (multiple ulcers (sacral, left hip, right foot)- wound care on board). Negative for: Rashes Psychiatric: Positive for: Alert (when prompted, follows simple commands). Negative for: Lethargic - Medications Active Medications: Active Medications Generic Name Dose Route Start Last Admin Trade Name Freq PRN Reason Stop Dose Admin Acetaminophen 650 mg 12/12/16 21:03 12/20/16 10:00 Tylenol 650mg/20.3ml Solution Ud PO 650 mg Q6 PRN Administration fever Albuterol/Ipratropium 3 ml 12/09/16 12:00 12/21/16 07:54 Duoneb 3 Mg/0.5 Mg (3 Ml) Ud INH 3 ml RQID [facility] Administration Collagenase 1 applic 12/08/16 16:15 12/20/16 08:25 Santyl TOP 1 applic DAILY [facility] Administration Furosemide 40 mg 12/19/16 09:15 12/20/16 08:22 Lasix PO 40 mg DAILY [facility] Administration Voriconazole 300 mg/ Sodium 250 mls @ 125 mls/hr 12/10/16 09:00 12/20/16 20: 11 Chloride IVPB 125 mls/hr Q12 [facility] Administration Meropenem 1 gm/ Sodium 100 mls @ 100 mls/hr 12/13/16 21:00 12/20/16 20:10 Chloride IVPB 100 mls/hr Q12 [facility] Administration Vancomycin HCl 750 mg/ Sodium 250 mls @ 166.667 mls/hr 12/20/16 16:00 18:46 Chloride IVPB 166.667 mls/hr DAILY [facility] Administration Insulin Human Lispro 0 units 12/06/16 22:00 12/21/16 06:40 Humalog SC Not Given Q6 [facility] Protocol Metronidazole 500 mg 12/13/16 17:00 12/21/16 01:04 Flagyl PO 500 mg Q8 [facility] Administration Nystatin 1 applic 12/08/16 17:00 12/20/16 16:13 Nystop Topical Powder TOP 1 pow TID [facility] Administration Pantoprazole Sodium 40 mg 12/20/16 10:30 12/20/16 10:38 Protonix Inj IVP Not Given DAILY [facility] - Patient Studies Lab Studies: Microbiology Studies 12/16/16 16:40 Blood Culture - Preliminary Blood-Venous NO GROWTH AFTER 4 DAYS Lab Studies 12/21/16 12/21/16 12/21/16 Range/Units 04:57 04:10 04:10 WBC 9.1 (4.8-10.8) K/uL RBC 3.00 L (4.40-5.90) Mil/uL Hgb 9.1 L (12.0-18.0) g/dL Hct 27.7 L (35.0-51.0) % MCV 92.1 (80.0-94.0) fl MCH 30.2 (27.0-31.0) pg MCHC 32.7 L (33.0-37.0) g/dL RDW 16.6 H (11.5-14.5) % Plt Count 214 (130-400) K/uL Sodium 144 (132-148) mmol/l Potassium 4.2 (3.6-5.0) MMOL/L Chloride 107 (98-107) mmol/L Carbon Dioxide 29 (22-30) mmol/L Anion Gap 12 (10-20) BUN 38 H (9-20) mg/dl Creatinine 0.8 (0.8-1.5) mg/dL Est GFR ( Amer) > 60 Est GFR (Non-Af Amer) > 60 POC Glucose (mg/dL) 113 H (65-110) mg/dL Random Glucose 108 (75-110) mg/dL Calcium 7.8 L (8.4-10.2) mg/dL 12/20/16 12/20/16 Range/Units 21:11 16:05 WBC (4.8-10.8) K/uL RBC (4.40-5.90) Mil/uL Hgb (12.0-18.0) g/dL Hct (35.0-51.0) % MCV (80.0-94.0) fl MCH (27.0-31.0) pg MCHC (33.0-37.0) g/dL RDW (11.5-14.5) % Plt Count (130-400) K/uL Sodium (132-148) mmol/l Potassium (3.6-5.0) MMOL/L Chloride (98-107) mmol/L Carbon Dioxide (22-30) mmol/L Anion Gap (10-20) BUN (9-20) mg/dl Creatinine (0.8-1.5) mg/dL Est GFR ( Amer) Est GFR (Non-Af Amer) POC Glucose (mg/dL) 150 H 107 (65-110) mg/dL Random Glucose (75-110) mg/dL Calcium (8.4-10.2) mg/dL Laboratory Results - last 24 hr 12/20/16 12/20/16 12/21/16 16:05 21:11 04:10 WBC 9.1 RBC 3.00 L Hgb 9.1 L Hct 27.7 L MCV 92.1 MCH 30.2 MCHC 32.7 L RDW 16.6 H Plt Count 214 Sodium Potassium Chloride Carbon Dioxide Anion Gap BUN Creatinine Est GFR ( Amer) Est GFR (Non-Af Amer) POC Glucose (mg/dL) 107 150 H Random Glucose Calcium 12/21/16 12/21/16 04:10 04:57 WBC RBC Hgb Hct MCV MCH MCHC RDW Plt Count Sodium 144 Potassium 4.2 Chloride 107 Carbon Dioxide 29 Anion Gap 12 BUN 38 H Creatinine 0.8 Est GFR ( Amer) > 60 Est GFR (Non-Af Amer) > 60 POC Glucose (mg/dL) 113 H Random Glucose 108 Calcium 7.8 L Fingerstick Blood Sugar Results: 113 Assessment/Plan (1) Acute hypercapnic respiratory failure Current Visit: Yes Status: Acute Priority: High Comment: Acute respiratory failure secondary to aspiration pneumonia Not a candidate for vent weaning at this time due to poor mental status Aggressive pulmonary toilet, chest PT, suctioning (2) Aspiration pneumonia Current Visit: Yes Status: Acute Comment: Continue IV Antibiotics with Meropenem & Voriconazole and Flagyl Maintain aspiration precautions (3) Severe sepsis Current Visit: Yes Status: Acute Priority: High Comment: Severe sepsis from UTI and aspiration pneumonia with Klebsiella pneumoniae Continue Meropenem and Voriconazole Continue Flagyl 500 mg PO Q8H (4) C. difficile colitis Current Visit: Yes Status: Acute Comment: Continue Flagyl 500 mg PO Q8H Repeat stool sample on 11/24 negative for C Diff toxin B and the Ag also negative on 12/01 (5) GEORGINA (acute kidney injury) Current Visit: Yes Status: Acute Priority: High (6) Osteomyelitis of right foot Current Visit: Yes Status: Acute (7) Avascular necrosis of bone of right hip Current Visit: No Status: Acute Priority: High Comment: for sx when stable (8) Bacteremia due to Gram-positive bacteria Current Visit: No Status: Acute Priority: High (9) DVT prophylaxis Current Visit: No Status: Acute
[2016-12-21] MEDS: Meropenem 1 GM in Sodium Chloride 0.9% 100 ML IVPB SCH ×2 (09:19→20:07)
[2016-12-21] MEDS: Santyl Collagenase OINTMENT TOP SCH (09:24)
--- NOTE | 2016-12-21 12:05 | CP.PCM.PN ---
Subjective - Date & Time of Evaluation Date of Evaluation: 12/21/16 Time of Evaluation: 12:05 - Subjective Subjective: Id Note- Pt. seen and examined this am in ICU. remains intubated and barely responsive . Objective - Vital Signs/Intake and Output Vital Signs (last 24 hours): Temp Pulse Resp BP Pulse Ox 99.9 F H 116 H 15 119/75 100 12/21/16 08:00 12/21/16 08:00 12/21/16 08:00 12/21/16 09:22 12/21/16 08:00 Intake and Output: 12/21/16 12/21/16 06:59 18:59 Intake Total 1660 Output Total 60 Balance 1600 - Medications Medications: Current Medications Acetaminophen (Tylenol 650mg/20.3ml Solution Ud) 650 mg PO Q6 PRN PRN Reason: fever Last Admin: 12/20/16 10:00 Dose: 650 mg Albuterol/Ipratropium (Duoneb 3 Mg/0.5 Mg (3 Ml) Ud) 3 ml INH RQID [facility] Last Admin: 12/21/16 11:15 Dose: 3 ml Collagenase (Santyl) 1 applic TOP DAILY [facility] Last Admin: 12/21/16 09:24 Dose: 1 applic Furosemide (Lasix) 40 mg PO DAILY [facility] Last Admin: 12/21/16 09:22 Dose: 40 mg Voriconazole 300 mg/ Sodium (Chloride) 250 mls @ 125 mls/hr IVPB Q12 [facility] Last Admin: 12/21/16 10:30 Dose: 125 mls/hr Meropenem 1 gm/ Sodium (Chloride) 100 mls @ 100 mls/hr IVPB Q12 [facility] Last Admin: 12/21/16 09:19 Dose: 100 mls/hr Vancomycin HCl 750 mg/ Sodium (Chloride) 250 mls @ 166.667 mls/hr IVPB DAILY [facility] Last Admin: 12/21/16 09:25 Dose: 166.667 mls/hr Insulin Human Lispro (Humalog) 0 units SC Q6 [facility] PRN Reason: Protocol Last Admin: 12/21/16 06:40 Dose: Not Given Metronidazole (Flagyl) 500 mg PO Q8 [facility] Last Admin: 12/21/16 09:23 Dose: 500 mg Nystatin (Nystop Topical Powder) 1 applic TOP TID [facility] Last Admin: 12/21/16 09:21 Dose: 1 pow Pantoprazole Sodium (Protonix Inj) 40 mg IVP DAILY [facility] Last Admin: 12/21/16 09:21 Dose: 40 mg - Labs Labs: - Additional Findings Additional findings: - Constitutional Appears: Chronically Ill - ENT Exam Additional comments: ET tube in place has OGT as well - Neck Exam Additional comments: supple - Respiratory Exam Additional comments: intubated and on the vent - Cardiovascular Exam Cardiovascular Exam: RRR, +S1, +S2 - GI/Abdominal Exam GI & Abdominal Exam: Soft, Normal Bowel Sounds Additional comments: ND, NT - Extremities Exam Additional comments: dry b/l heel ulcers, no discharge - Neurological Exam Additional comments: intubated , does not follow commands Laboratory Results - last 72 hr 12/18/16 12/19/16 12/19/16 21:33 05:08 05:30 WBC 7.6 RBC 2.69 L Hgb 8.1 L Hct 25.1 L MCV 93.4 MCH 30.2 MCHC 32.3 L RDW 16.8 H Plt Count 204 MPV 10.2 Neut % (Auto) 50.9 Lymph % (Auto) 34.6 Callaway % (Auto) 8.2 Eos % (Auto) 4.8 H Baso % (Auto) 1.5 Neut # 3.8 Lymph # 2.6 Callaway # 0.6 Eos # 0.4 Baso # 0.1 pCO2 42 pO2 131 H HCO3 33.1 H ABG pH 7.52 H ABG Total CO2 35.6 H ABG O2 Saturation 100.3 H ABG O2 Content 12.1 L ABG Base Excess 10.5 H ABG Hemoglobin 8.7 L ABG Carboxyhemoglobin 1.5 POC ABG HHb (Measured) -0.3 L ABG Methemoglobin 2.2 ABG O2 Capacity 12.1 L Torres Test Yes A-a O2 Difference 66.0 Hgb O2 Saturation 96.6 Vent Mode Prvc/ac Mechanical Rate 10 FiO2 35.0 Tidal Volume 450 PEEP 5 Sodium Potassium Chloride Carbon Dioxide Anion Gap BUN Creatinine Est GFR ( Amer) Est GFR (Non-Af Amer) POC Glucose (mg/dL) 130 H Random Glucose Calcium Magnesium Total Bilirubin AST ALT Alkaline Phosphatase Total Protein Albumin Globulin Albumin/Globulin Ratio 12/19/16 12/19/16 12/19/16 05:30 06:18 06:56 WBC RBC Hgb Hct MCV MCH MCHC RDW Plt Count MPV Neut % (Auto) Lymph % (Auto) Callaway % (Auto) Eos % (Auto) Baso % (Auto) Neut # Lymph # Callaway # Eos # Baso # pCO2 pO2 HCO3 ABG pH ABG Total CO2 ABG O2 Saturation ABG O2 Content ABG Base Excess ABG Hemoglobin ABG Carboxyhemoglobin POC ABG HHb (Measured) ABG Methemoglobin ABG O2 Capacity Torres Test A-a O2 Difference Hgb O2 Saturation Vent Mode Mechanical Rate FiO2 Tidal Volume PEEP Sodium 143 Potassium 4.0 Chloride 107 Carbon Dioxide 27 Anion Gap 13 BUN 36 H Creatinine 0.8 Est GFR ( Amer) > 60 Est GFR (Non-Af Amer) > 60 POC Glucose (mg/dL) 138 H 142 H Random Glucose 114 H Calcium 7.7 L Magnesium Total Bilirubin 0.3 AST 34 ALT 23 Alkaline Phosphatase 645 H Total Protein 6.5 Albumin 2.3 L Globulin 4.2 H Albumin/Globulin Ratio 0.5 L 12/19/16 12/19/16 12/20/16 16:10 22:12 04:45 WBC 8.3 RBC 2.73 L Hgb 8.1 L Hct 25.4 L MCV 93.0 MCH 29.8 MCHC 32.0 L RDW 16.8 H Plt Count 196 MPV 10.6 Neut % (Auto) 60.1 Lymph % (Auto) 27.6 Callaway % (Auto) 9.8 Eos % (Auto) 1.9 Baso % (Auto) 0.6 Neut # 5.0 Lymph # 2.3 Callaway # 0.8 Eos # 0.2 Baso # 0.0 pCO2 pO2 HCO3 ABG pH ABG Total CO2 ABG O2 Saturation ABG O2 Content ABG Base Excess ABG Hemoglobin ABG Carboxyhemoglobin POC ABG HHb (Measured) ABG Methemoglobin ABG O2 Capacity Torres Test A-a O2 Difference Hgb O2 Saturation Vent Mode Mechanical Rate FiO2 Tidal Volume PEEP Sodium Potassium Chloride Carbon Dioxide Anion Gap BUN Creatinine Est GFR ( Amer) Est GFR (Non-Af Amer) POC Glucose (mg/dL) 122 H 149 H Random Glucose Calcium Magnesium Total Bilirubin AST ALT Alkaline Phosphatase Total Protein Albumin Globulin Albumin/Globulin Ratio 12/20/16 12/20/16 12/20/16 04:45 04:46 16:05 WBC RBC Hgb Hct MCV MCH MCHC RDW Plt Count MPV Neut % (Auto) Lymph % (Auto) Callaway % (Auto) Eos % (Auto) Baso % (Auto) Neut # Lymph # Callaway # Eos # Baso # pCO2 pO2 HCO3 ABG pH ABG Total CO2 ABG O2 Saturation ABG O2 Content ABG Base Excess ABG Hemoglobin ABG Carboxyhemoglobin POC ABG HHb (Measured) ABG Methemoglobin ABG O2 Capacity Torres Test A-a O2 Difference Hgb O2 Saturation Vent Mode Mechanical Rate FiO2 Tidal Volume PEEP Sodium 145 Potassium 4.4 Chloride 108 H Carbon Dioxide 27 Anion Gap 14 BUN 39 H Creatinine 0.8 Est GFR ( Amer) > 60 Est GFR (Non-Af Amer) > 60 POC Glucose (mg/dL) 126 H 107 Random Glucose 128 H Calcium 7.7 L Magnesium 2.1 Total Bilirubin AST ALT Alkaline Phosphatase Total Protein Albumin Globulin Albumin/Globulin Ratio 12/20/16 12/21/16 12/21/16 21:11 04:10 04:10 WBC 9.1 RBC 3.00 L Hgb 9.1 L Hct 27.7 L MCV 92.1 MCH 30.2 MCHC 32.7 L RDW 16.6 H Plt Count 214 MPV Neut % (Auto) Lymph % (Auto) Callaway % (Auto) Eos % (Auto) Baso % (Auto) Neut # Lymph # Callaway # Eos # Baso # pCO2 pO2 HCO3 ABG pH ABG Total CO2 ABG O2 Saturation ABG O2 Content ABG Base Excess ABG Hemoglobin ABG Carboxyhemoglobin POC ABG HHb (Measured) ABG Methemoglobin ABG O2 Capacity Torres Test A-a O2 Difference Hgb O2 Saturation Vent Mode Mechanical Rate FiO2 Tidal Volume PEEP Sodium 144 Potassium 4.2 Chloride 107 Carbon Dioxide 29 Anion Gap 12 BUN 38 H Creatinine 0.8 Est GFR ( Amer) > 60 Est GFR (Non-Af Amer) > 60 POC Glucose (mg/dL) 150 H Random Glucose 108 Calcium 7.8 L Magnesium Total Bilirubin AST ALT Alkaline Phosphatase Total Protein Albumin Globulin Albumin/Globulin Ratio 12/21/16 12/21/16 12/21/16 04:57 11:27 15:43 WBC RBC Hgb Hct MCV MCH MCHC RDW Plt Count MPV Neut % (Auto) Lymph % (Auto) Callaway % (Auto) Eos % (Auto) Baso % (Auto) Neut # Lymph # Callaway # Eos # Baso # pCO2 pO2 HCO3 ABG pH ABG Total CO2 ABG O2 Saturation ABG O2 Content ABG Base Excess ABG Hemoglobin ABG Carboxyhemoglobin POC ABG HHb (Measured) ABG Methemoglobin ABG O2 Capacity Torres Test A-a O2 Difference Hgb O2 Saturation Vent Mode Mechanical Rate FiO2 Tidal Volume PEEP Sodium Potassium Chloride Carbon Dioxide Anion Gap BUN Creatinine Est GFR ( Amer) Est GFR (Non-Af Amer) POC Glucose (mg/dL) 113 H 131 H 142 H Random Glucose Calcium Magnesium Total Bilirubin AST ALT Alkaline Phosphatase Total Protein Albumin Globulin Albumin/Globulin Ratio Microbiology 12/20/16 17:05 Blood-Venous Blood Culture - Preliminary NO GROWTH AFTER 24 HOURS 12/20/16 17:00 Blood-Venous Blood Culture - Preliminary NO GROWTH AFTER 24 HOURS 12/16/16 16:40 Blood-Venous Blood Culture - Final NO GROWTH AFTER 5 DAYS 12/16/16 16:40 Blood-Venous Gram Stain - Final TEST NOT PERFORMED 12/13/16 16:45 Blood-Venous Blood Culture - Final NO GROWTH AFTER 5 DAYS 12/13/16 16:45 Blood-Venous Gram Stain - Final TEST NOT PERFORMED 12/13/16 16:45 Blood-Venous Blood Culture - Final NO GROWTH AFTER 5 DAYS 12/13/16 16:45 Blood-Venous Gram Stain - Final TEST NOT PERFORMED 12/04/16 17:00 Trachasp Gram Stain - Final 12/04/16 17:00 Trachasp Sputum Culture - Final NORMAL ORAL ROSEMARY 12/14/16 17:45 Urine,No Urine Culture - Final No Growth (<1,000 CFU/ML) 12/10/16 18:30 Blood-Venous Blood Culture - Final NO GROWTH AFTER 5 DAYS 12/10/16 18:30 Blood-Venous Gram Stain - Final TEST NOT PERFORMED 12/10/16 18:30 Blood-Venous Blood Culture - Final NO GROWTH AFTER 5 DAYS 12/10/16 18:30 Blood-Venous Gram Stain - Final TEST NOT PERFORMED 12/06/16 17:30 Blood-Venous Blood Culture - Final NO GROWTH AFTER 5 DAYS 12/06/16 17:30 Blood-Venous Gram Stain - Final TEST NOT PERFORMED 12/06/16 17:50 Blood-Venous Blood Culture - Final NO GROWTH AFTER 5 DAYS 12/06/16 17:50 Blood-Venous Gram Stain - Final TEST NOT PERFORMED 12/04/16 00:10 Blood-Venous Blood Culture - Final Saccharomyces Cerevisiae 12/04/16 00:10 Blood-Venous Gram Stain - Final 12/04/16 00:10 Blood-Venous S.aureus & Coag-Neg Staph PNA FISH - Final 12/04/16 00:10 Blood-Venous Blood Culture - Final Saccharomyces Cerevisiae 12/04/16 00:10 Blood-Venous Gram Stain - Final 12/04/16 14:00 Blood S.aureus & Coag-Neg Staph PNA FISH - Final 12/04/16 14:00 Blood Blood Culture - Final Saccharomyces Cerevisiae 12/04/16 14:00 Blood Gram Stain - Final 12/04/16 18:00 Blood-Thru Central Line S.aureus & Coag-Neg Staph PNA FISH - Final 12/04/16 18:00 Blood-Thru Central Line Blood Culture - Final Saccharomyces Cerevisiae 12/04/16 18:00 Blood-Thru Central Line Gram Stain - Final 12/04/16 16:50 Urine,No Urine Culture - Final Yeast Species 12/04/16 18:00 Naris MRSA Culture (Admit) - Final MRSA DETECTED 12/04/16 02:05 Urine,No Urine Culture - Final Yeast Species 11/26/16 20:01 Nose MRSA Culture (Admit) - Final MRSA NOT DETECTED 11/20/16 10:00 Blood-Venous Blood Culture - Final NO GROWTH AFTER 5 DAYS 11/20/16 10:00 Blood-Venous Gram Stain - Final TEST NOT PERFORMED 11/21/16 10:00 Trachasp Gram Stain - Final 11/21/16 10:00 Trachasp Sputum Culture - Final Klebsiella Pneumoniae Ssp Pneu 11/20/16 15:00 Nose MRSA Culture (Admit) - Final MRSA NOT DETECTED 11/20/16 01:57 Urine,No Urine Culture - Final No Growth (<1,000 CFU/ML) Accession No. : [id number] Patient Name / ID : GRACE ANTON / [id number] Exam Date : 12/21/2016 12:33:19 ( Approved ) Study Comment : Sex / Age : M / 71Y Creator : Rod Khan MD Dictator : Rod Khan MD Faculty Research Assistant : Cdl Driver : Rod Khan MD Approver2 : Report Date : 12/21/2016 13:50:32 My Comment : PROCEDURE: CHEST RADIOGRAPH, 1 VIEW Technique: Single view portable semi erect @ 12:35. HISTORY: Respiratory failure COMPARISON: Multiple serial examinations preceding the most recent study: December 20, 2016. FINDINGS: LUNGS: Improving bilateral infiltrates. PLEURA: No pneumothorax or pleural fluid seen. CARDIOVASCULAR: No significant interval change compared to the prior examination(s). OSSEOUS STRUCTURES: No significant abnormalities. VISUALIZED UPPER ABDOMEN: Normal. OTHER FINDINGS: Endotracheal tube tip at the level of the clavicles. Nasogastric tube courses through the esophagus into the stomach IMPRESSION: High endotracheal tube. Improving bilateral infiltrates. Assessment and Plan (1) Respiratory failure Status: Acute (2) Septic shock Status: Acute (3) GEORGINA (acute kidney injury) Status: Acute (4) Fever Status: Acute (5) Fungemia Status: Acute - Assessment and Plan (Free Text) Assessment: A/P- low grade fever today. was afebrile past48 hours no changed 5 days ago normal wbc count blood cx from 12/04/2016- 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 repeat stool c.diff- negative tox and AG repeat blood cx from 12/06/2016- negative x 2 repeat blood cx from 12/10/2016- negative x 2 repeat blood cx frpm 12/13/2016-neg x 2 repeat blood cx from 12/16-negative repeat blood cx from 12/20- neg x 2 CT abd/pelvis- as per report no perf, no free air and normal bowel. b/l pleural effusion. cxr- as per report b/l interstitial infiltrates improving as per report. pneumonia/resp distress fungemia is on antifungal medication, repeat blood cx are all negative c.diff - resolved fungurea Plan- continue with meropenem for HAP , day #14 for HAP. continue with meropenem for 7 more days pending clinical response. completed 2 days of Micafungin for fungemia but once yeast was ID as sacharomyces was switched to voriconazole. day #12 TTE- no vegetations as per report. continue with voriconazole for 9 more days. continue with IV vancomycin as well, day #2. keep trough <15. check repeat sputum cx and blood cx . ICU time 45 minutes.
[2016-12-21] MEDS: Acetaminophen 650mg/20.3ml solution UD PO PRN (12:10)
--- NOTE | 2016-12-21 13:13 | CP.PCM.PN ---
Subjective - Date & Time of Evaluation Date of Evaluation: 12/21/16 Time of Evaluation: 10:30 - Subjective Subjective: F/U Respiratory failure. Pt with open eyes to verbal stimuli, follows commands likely squeezing hands, on ventilator PRVC/AC 35%. VS stable. Objective - Vital Signs/Intake and Output Vital Signs (last 24 hours): Temp Pulse Resp BP Pulse Ox 100.3 F H 125 H 22 136/80 100 12/21/16 12:10 12/21/16 12:00 12/21/16 12:00 12/21/16 12:00 12/21/16 12:00 Intake and Output: 12/21/16 12/21/16 06:59 18:59 Intake Total 1660 Output Total 60 Balance 1600 - Medications Medications: Current Medications Acetaminophen (Tylenol 650mg/20.3ml Solution Ud) 650 mg PO Q6 PRN PRN Reason: fever Last Admin: 12/21/16 12:10 Dose: 650 mg Albuterol/Ipratropium (Duoneb 3 Mg/0.5 Mg (3 Ml) Ud) 3 ml INH RQID [facility] Last Admin: 12/21/16 11:15 Dose: 3 ml Collagenase (Santyl) 1 applic TOP DAILY [facility] Last Admin: 12/21/16 09:24 Dose: 1 applic Furosemide (Lasix) 40 mg PO DAILY [facility] Last Admin: 12/21/16 09:22 Dose: 40 mg Voriconazole 300 mg/ Sodium (Chloride) 250 mls @ 125 mls/hr IVPB Q12 [facility] Last Admin: 12/21/16 10:30 Dose: 125 mls/hr Meropenem 1 gm/ Sodium (Chloride) 100 mls @ 100 mls/hr IVPB Q12 [facility] Last Admin: 12/21/16 09:19 Dose: 100 mls/hr Vancomycin HCl 750 mg/ Sodium (Chloride) 250 mls @ 166.667 mls/hr IVPB DAILY [facility] Last Admin: 12/21/16 09:25 Dose: 166.667 mls/hr Insulin Human Lispro (Humalog) 0 units SC Q6 [facility] PRN Reason: Protocol Last Admin: 12/21/16 10:00 Dose: Not Given Metronidazole (Flagyl) 500 mg PO Q8 [facility] Last Admin: 12/21/16 09:23 Dose: 500 mg Nystatin (Nystop Topical Powder) 1 applic TOP TID [facility] Last Admin: 12/21/16 12:11 Dose: 1 pow Pantoprazole Sodium (Protonix Inj) 40 mg IVP DAILY [facility] Last Admin: 12/21/16 09:21 Dose: 40 mg - Labs Labs: 12/21/16 04:10 12/21/16 04:10 PT 13.2 Seconds (9.8-13.1) H 12/10/16 04:20 INR 1.3 (0.9-1.2) H 12/10/16 04:20 APTT 35.7 Seconds (25.6-37.1) 12/10/16 04:20 - Constitutional Appears: Chronically Ill - Head Exam Head Exam: NORMAL INSPECTION - Eye Exam Eye Exam: PERRL - ENT Exam Additional comments: Intubated, OG tube in place. - Neck Exam Neck Exam: Normal Inspection - Respiratory Exam Respiratory Exam: Decreased Breath Sounds (at bases), Rhonchi (scattered) - Cardiovascular Exam Cardiovascular Exam: REGULAR RHYTHM - GI/Abdominal Exam GI & Abdominal Exam: Soft, Normal Bowel Sounds - Extremities Exam Additional comments: Edema upper extremities, Ulcer L hip and R foot. - Back Exam Additional comments: Sacral ulcer - Neurological Exam Neurological Exam: Awake Additional comments: Open eyes to verbal stimuli, does not follows commands, generalized weakness. - Psychiatric Exam Psychiatric exam: Flat Affect - Skin Skin Exam: Warm Additional comments: Ulcer multiple sites. Assessment and Plan (1) Acute hypercapnic respiratory failure Status: Acute (2) Klebsiella pneumonia Status: Acute (3) Dehydration Status: Acute (4) Septic shock Status: Resolved (5) GEORGINA (acute kidney injury) Status: Acute (6) Type 2 diabetes mellitus with hyperglycemia Status: Chronic (7) HTN (hypertension) Status: Chronic (8) C. difficile colitis Status: Acute (9) Alkaline phosphatase elevation Status: Acute (10) Fungemia Status: Acute - Assessment and Plan (Free Text) Plan: Unable to wean from ventilator, for Tracheotomy in AM and f/u for Peg Tube. ICU Time: 40 min.
--- NOTE | 2016-12-21 13:52 | RAD ---
PROCEDURE: CHEST RADIOGRAPH, 1 VIEW Technique: Single view portable semi erect @ 12:35. HISTORY: Respiratory failure COMPARISON: Multiple serial examinations preceding the most recent study: December 20, 2016. FINDINGS: LUNGS: Improving bilateral infiltrates. PLEURA: No pneumothorax or pleural fluid seen. CARDIOVASCULAR: No significant interval change compared to the prior examination(s). OSSEOUS STRUCTURES: No significant abnormalities. VISUALIZED UPPER ABDOMEN: Normal. OTHER FINDINGS: Endotracheal tube tip at the level of the clavicles. Nasogastric tube courses through the esophagus into the stomach IMPRESSION: High endotracheal tube. Improving bilateral infiltrates.
[2016-12-22 05:22] LABS: PARTIAL THROMBOPLASTIN TIME 32.9 Seconds (25.6-37.1)
[2016-12-22 05:26] LABS: BASO # 0.2 K/uL (0.0-0.2)
[2016-12-22 05:27] LABS: ALB/GLOB RATIO 0.6 (1.0-2.1); ALKALINE PHOSPHATASE 815 U/L (38-126); ALT/SGPT 24 U/L (21-72); AST/SGOT 43 U/L (17-59); BILIRUBIN,TOTAL 0.5 mg/dl (0.2-1.3); BLOOD UREA NITROGEN 38 mg/dl (9-20); CARBON DIOXIDE 29 mmol/L (22-30); CHLORIDE 110 mmol/L (98-107); GFR AFRICAN-AMERICAN > 60; GLUCOSE,RANDOM 94 mg/dL (75-110); POTASSIUM 4.2 MMOL/L (3.6-5.0); SODIUM 147 mmol/l (132-148); TOTAL PROTEIN 6.6 G/DL (6.3-8.2)
[2016-12-22 05:30] LABS: BASO % 2.5 % (0.0-2.0); EOS # 0.2 K/uL (0.0-0.7); HEMATOCRIT 27.1 % (35.0-51.0); LYMPH # 2.4 K/uL (1.0-4.3); LYMPH % 29.9 % (20.0-40.0); MEAN CELL VOLUME 94.6 fl (80.0-94.0); MEAN CORPUSCULAR HEMOGLOBIN 29.9 pg (27.0-31.0); MEAN CORPUSCULAR HGB CONC 31.6 g/dL (33.0-37.0); MEAN PLATELET VOLUME 10.9 fl (7.2-11.7); MONO # 0.7 K/uL (0.0-0.8); NEUT # 4.5 K/uL (1.8-7.0); NEUT % 55.6 % (50.0-75.0); NRBC % 0.9 % (0.0-0.0); RED CELL DISTRIBUTION WIDTH 17.1 % (11.5-14.5); WHITE BLOOD COUNT 8.1 K/uL (4.8-10.8)
[2016-12-22] MEDS: Albuterol-Ipratrop 3 mg / 0.5 (3 ml) UD INH SCH (07:44)
[2016-12-22] MEDS: Meropenem 1 GM in Sodium Chloride 0.9% 100 ML IVPB SCH ×2 (08:23→20:06)
[2016-12-22] MEDS: Santyl Collagenase OINTMENT TOP SCH (08:25)
[2016-12-22] MEDS ORDERED: Rocuronium 10 mg/ml (5 ml) ONE ×2 (09:33→10:56)
[2016-12-22] MEDS ORDERED: Etomidate 20 mg/10ml Inj IV ONE (09:33)
[2016-12-22] MEDS ORDERED: Phenylephrine 10 mg/ml Inj ONE (09:36)
--- NOTE | 2016-12-22 10:10 | RAD ---
HISTORY: advanced ET tube 2 cm COMPARISON: Comparison made with chest radiograph 12/20/2016 FINDINGS: In situ ETT, the tip of which lies approximately 11 cm above shira. This should be advanced. LUNGS: Continued improvement patchy bilateral infiltrates. There is a linear lucency seen overlying the lower lateral right ursula thorax and upper abdomen likely representing skin fold artifact PLEURA: No significant pleural effusion identified, no pneumothorax apparent. CARDIOVASCULAR: Normal. OSSEOUS STRUCTURES: No significant abnormalities. VISUALIZED UPPER ABDOMEN: Normal. OTHER FINDINGS: None. IMPRESSION: ETT lies approximately 11 cm above shira and should be advanced. Continued improvement patchy bilateral infiltrates. Note these findings were discussed with Dr. Paez of the ICU at approximately at 1008 a.m. with written down and read back verification. . Probable skin fold artifact overlying the right lateral lower ursula thorax and
[2016-12-22] MEDS ORDERED: Lactated Ringer's 1,000 ML IV ONE (10:15)
[2016-12-22] MEDS: Insulin Lispro (humaLOG) 100 Units/ml Inj SC SCH ×3 (10:15→22:00)
--- NOTE | 2016-12-22 10:20 | CP.CCUPN ---
<Lilian Low - Last Filed: 12/22/16 10:00> CCU Subjective - Physician Review Subjective (Free Text): 12/22/16 10:01 Patient seen and examined at bedside, remains intubated, not responsive to verbal or physical stimuli. With normal urine output. Scheduled for tracheostomy today. Tmax 100.3 F at 4am today. CCU Objective - Vital Signs / Intake & Output Vital Signs (Last 4 hours): Vital Signs Temp Pulse BP Pulse Ox 12/22/16 08:24 135/75 12/22/16 08:00 99.7 F H 127 H 135/75 100 Intake and Output (Last 8hrs): Intake & Output 12/21/16 12/22/16 12/22/16 22:59 06:59 14:59 Intake Total 1210 160 0 Output Total 700 700 Balance 510 -540 0 Weight 169 lb Intake: IV 0 Intake, Piggyback 350 Tube Feeding 560 160 Free Water Flush 300 Output: Urine 300 700 Urethral (No) 300 700 Stool 400 - Physical Exam Head: Positive for: Normocephalic Mouth: Positive for: Moist Mucous Membranes (ET tube in place, advanced 2.5 cm) Neck: Negative for: Meningeal Signs, JVD, Lymphadenopathy Respiratory/Chest: Positive for: Decreased Breath Sounds. Negative for: Accessory Muscle Use, Wheezes, Rhonchi Cardiovascular: Positive for: Regular Rate and Rhythm, Tachycardic (120's ). Negative for: Murmurs, Rub Abdomen: Negative for: Tenderness, Distention Rectal: Positive for: Other (rectal tube with liquid brown stool) Upper Extremity: Positive for: Edema (improved b/l edema, 2 left hand IV's in place) Lower Extremity: Positive for: Edema (bilateral-improved), Other (osteomyelitis of right foot). Negative for: CALF TENDERNESS, Cyanosis Neurological: Positive for: Other (unresponsive to verbal or physical stimuli ) Skin: Positive for: Warm, Other (multiple ulcers (sacral, left hip, right foot)- improving per wound care ). Negative for: Rashes Psychiatric: Negative for: Alert, Lethargic - Medications Active Medications: Active Medications Generic Name Dose Route Start Last Admin Trade Name Freq PRN Reason Stop Dose Admin Acetaminophen 650 mg 12/12/16 21:03 12/21/16 12:10 Tylenol 650mg/20.3ml Solution Ud PO 650 mg Q6 PRN Administration fever Collagenase 1 applic 12/08/16 16:15 12/22/16 08:25 Santyl TOP 1 applic DAILY LARRY Administration Furosemide 40 mg 12/19/16 09:15 12/22/16 08:24 Lasix PO Not Given DAILY LARRY Voriconazole 300 mg/ Sodium 250 mls @ 125 mls/hr 12/10/16 09:00 12/21/16 20: 07 Chloride IVPB 125 mls/hr Q12 LARRY Administration Meropenem 1 gm/ Sodium 100 mls @ 100 mls/hr 12/13/16 21:00 12/22/16 08:23 Chloride IVPB 100 mls/hr Q12 LARRY Administration Vancomycin HCl 750 mg/ Sodium 250 mls @ 166.667 mls/hr 12/20/16 16:00 09:40 Chloride IVPB 166.667 mls/hr DAILY LARRY Administration Insulin Human Lispro 0 units 12/06/16 22:00 12/21/16 21:10 Humalog SC Not Given Q6 LARRY Protocol Metronidazole 500 mg 12/13/16 17:00 12/22/16 08:24 Flagyl PO Not Given Q8 LARRY Nystatin 1 applic 12/08/16 17:00 12/22/16 08:25 Nystop Topical Powder TOP 1 pow TID LARRY Administration Pantoprazole Sodium 40 mg 12/20/16 10:30 12/22/16 08:25 Protonix Inj IVP 40 mg DAILY LARRY Administration - Patient Studies Lab Studies: Microbiology Studies 12/20/16 01:35 Gram Stain - Final Trachasp 12/20/16 17:05 Blood Culture - Preliminary Blood-Venous NO GROWTH AFTER 24 HOURS 12/20/16 17:00 Blood Culture - Preliminary Blood-Venous NO GROWTH AFTER 24 HOURS 12/16/16 16:40 Blood Culture - Final Blood-Venous NO GROWTH AFTER 5 DAYS Gram Stain - Final TEST NOT PERFORMED Lab Studies 12/22/16 12/22/16 12/22/16 Range/Units 09:43 04:46 04:30 WBC (4.8-10.8) K/uL RBC (4.40-5.90) Mil/uL Hgb (12.0-18.0) g/dL Hct (35.0-51.0) % MCV (80.0-94.0) fl MCH (27.0-31.0) pg MCHC (33.0-37.0) g/dL RDW (11.5-14.5) % Plt Count (130-400) K/uL MPV (7.2-11.7) fl Neut % (Auto) (50.0-75.0) % Lymph % (Auto) (20.0-40.0) % Rawlins % (Auto) (0.0-10.0) % Eos % (Auto) (0.0-4.0) % Baso % (Auto) (0.0-2.0) % Neut # (1.8-7.0) K/uL Lymph # (1.0-4.3) K/uL Rawlins # (0.0-0.8) K/uL Eos # (0.0-0.7) K/uL Baso # (0.0-0.2) K/uL PT (9.8-13.1) Seconds INR (0.9-1.2) APTT (25.6-37.1) Seconds Sodium 147 (132-148) mmol/l Potassium 4.2 (3.6-5.0) MMOL/L Chloride 110 H (98-107) mmol/L Carbon Dioxide 29 (22-30) mmol/L Anion Gap 12 (10-20) BUN 38 H (9-20) mg/dl Creatinine 0.8 (0.8-1.5) mg/dL Est GFR ( Amer) > 60 Est GFR (Non-Af Amer) > 60 POC Glucose (mg/dL) 103 116 H (65-110) mg/dL Random Glucose 94 (75-110) mg/dL Calcium 8.0 L (8.4-10.2) mg/dL Total Bilirubin 0.5 (0.2-1.3) mg/dl AST 43 (17-59) U/L ALT 24 (21-72) U/L Alkaline Phosphatase 815 H D (38-126) U/L Total Protein 6.6 (6.3-8.2) G/DL Albumin 2.4 L (3.5-5.0) g/dL Globulin 4.2 H (2.2-3.9) gm/dL Albumin/Globulin Ratio 0.6 L (1.0-2.1) 12/22/16 12/22/16 12/21/16 Range/Units 04:30 04:30 21:08 WBC 8.1 (4.8-10.8) K/uL RBC 2.87 L (4.40-5.90) Mil/uL Hgb 8.6 L (12.0-18.0) g/dL Hct 27.1 L (35.0-51.0) % MCV 94.6 H D (80.0-94.0) fl MCH 29.9 (27.0-31.0) pg MCHC 31.6 L (33.0-37.0) g/dL RDW 17.1 H (11.5-14.5) % Plt Count 207 (130-400) K/uL MPV 10.9 (7.2-11.7) fl Neut % (Auto) 55.6 (50.0-75.0) % Lymph % (Auto) 29.9 (20.0-40.0) % Rawlins % (Auto) 9.0 (0.0-10.0) % Eos % (Auto) 3.0 (0.0-4.0) % Baso % (Auto) 2.5 H (0.0-2.0) % Neut # 4.5 (1.8-7.0) K/uL Lymph # 2.4 (1.0-4.3) K/uL Rawlins # 0.7 (0.0-0.8) K/uL Eos # 0.2 (0.0-0.7) K/uL Baso # 0.2 (0.0-0.2) K/uL PT 13.4 H (9.8-13.1) Seconds INR 1.3 H (0.9-1.2) APTT 32.9 (25.6-37.1) Seconds Sodium (132-148) mmol/l Potassium (3.6-5.0) MMOL/L Chloride (98-107) mmol/L Carbon Dioxide (22-30) mmol/L Anion Gap (10-20) BUN (9-20) mg/dl Creatinine (0.8-1.5) mg/dL Est GFR ( Amer) Est GFR (Non-Af Amer) POC Glucose (mg/dL) 131 H (65-110) mg/dL Random Glucose (75-110) mg/dL Calcium (8.4-10.2) mg/dL Total Bilirubin (0.2-1.3) mg/dl AST (17-59) U/L ALT (21-72) U/L Alkaline Phosphatase (38-126) U/L Total Protein (6.3-8.2) G/DL Albumin (3.5-5.0) g/dL Globulin (2.2-3.9) gm/dL Albumin/Globulin Ratio (1.0-2.1) 12/21/16 12/21/16 Range/Units 15:43 11:27 WBC (4.8-10.8) K/uL RBC (4.40-5.90) Mil/uL Hgb (12.0-18.0) g/dL Hct (35.0-51.0) % MCV (80.0-94.0) fl MCH (27.0-31.0) pg MCHC (33.0-37.0) g/dL RDW (11.5-14.5) % Plt Count (130-400) K/uL MPV (7.2-11.7) fl Neut % (Auto) (50.0-75.0) % Lymph % (Auto) (20.0-40.0) % Rawlins % (Auto) (0.0-10.0) % Eos % (Auto) (0.0-4.0) % Baso % (Auto) (0.0-2.0) % Neut # (1.8-7.0) K/uL Lymph # (1.0-4.3) K/uL Rawlins # (0.0-0.8) K/uL Eos # (0.0-0.7) K/uL Baso # (0.0-0.2) K/uL PT (9.8-13.1) Seconds INR (0.9-1.2) APTT (25.6-37.1) Seconds Sodium (132-148) mmol/l Potassium (3.6-5.0) MMOL/L Chloride (98-107) mmol/L Carbon Dioxide (22-30) mmol/L Anion Gap (10-20) BUN (9-20) mg/dl Creatinine (0.8-1.5) mg/dL Est GFR ( Amer) Est GFR (Non-Af Amer) POC Glucose (mg/dL) 142 H 131 H (65-110) mg/dL Random Glucose (75-110) mg/dL Calcium (8.4-10.2) mg/dL Total Bilirubin (0.2-1.3) mg/dl AST (17-59) U/L ALT (21-72) U/L Alkaline Phosphatase (38-126) U/L Total Protein (6.3-8.2) G/DL Albumin (3.5-5.0) g/dL Globulin (2.2-3.9) gm/dL Albumin/Globulin Ratio (1.0-2.1) Laboratory Results - last 24 hr 12/21/16 12/21/16 12/21/16 11:27 15:43 21:08 WBC RBC Hgb Hct MCV MCH MCHC RDW Plt Count MPV Neut % (Auto) Lymph % (Auto) Rawlins % (Auto) Eos % (Auto) Baso % (Auto) Neut # Lymph # Rawlins # Eos # Baso # PT INR APTT Sodium Potassium Chloride Carbon Dioxide Anion Gap BUN Creatinine Est GFR ( Amer) Est GFR (Non-Af Amer) POC Glucose (mg/dL) 131 H 142 H 131 H Random Glucose Calcium Total Bilirubin AST ALT Alkaline Phosphatase Total Protein Albumin Globulin Albumin/Globulin Ratio 12/22/16 12/22/16 12/22/16 04:30 04:30 04:30 WBC 8.1 RBC 2.87 L Hgb 8.6 L Hct 27.1 L MCV 94.6 H D MCH 29.9 MCHC 31.6 L RDW 17.1 H Plt Count 207 MPV 10.9 Neut % (Auto) 55.6 Lymph % (Auto) 29.9 Rawlins % (Auto) 9.0 Eos % (Auto) 3.0 Baso % (Auto) 2.5 H Neut # 4.5 Lymph # 2.4 Rawlins # 0.7 Eos # 0.2 Baso # 0.2 PT 13.4 H INR 1.3 H APTT 32.9 Sodium 147 Potassium 4.2 Chloride 110 H Carbon Dioxide 29 Anion Gap 12 BUN 38 H Creatinine 0.8 Est GFR ( Amer) > 60 Est GFR (Non-Af Amer) > 60 POC Glucose (mg/dL) Random Glucose 94 Calcium 8.0 L Total Bilirubin 0.5 AST 43 ALT 24 Alkaline Phosphatase 815 H D Total Protein 6.6 Albumin 2.4 L Globulin 4.2 H Albumin/Globulin Ratio 0.6 L 12/22/16 12/22/16 04:46 09:43 WBC RBC Hgb Hct MCV MCH MCHC RDW Plt Count MPV Neut % (Auto) Lymph % (Auto) Rawlins % (Auto) Eos % (Auto) Baso % (Auto) Neut # Lymph # Rawlins # Eos # Baso # PT INR APTT Sodium Potassium Chloride Carbon Dioxide Anion Gap BUN Creatinine Est GFR ( Amer) Est GFR (Non-Af Amer) POC Glucose (mg/dL) 116 H 103 Random Glucose Calcium Total Bilirubin AST ALT Alkaline Phosphatase Total Protein Albumin Globulin Albumin/Globulin Ratio Fingerstick Blood Sugar Results: 116 Review of Systems - Review of Systems Systems not reviewed;Unavailable: Intubated (, unresposive) Critical Care Progress Note - Ventilator Checklist Head of Bed 30 Degrees: Yes PUD Prophalyxis: Yes - Vent Settings MODE:: PRVC (/AC) TIDAL VOLUME:: 450 RESP RATE:: 10 FIO2:: 35 PEEP:: 5 - Extremities/Vascular Does the Patient have a Central Venous Catheter?: No Does the Patient need a Central Venous Catheter?: Yes Does the Patient have a No Catheter?: Yes Does the Patient need a No Catheter?: Yes Catheter Insertion Criteria: Stage 3/Stage 4 decubits as per policy - Restraints Justification for Restraints: High risk for self extubation - Prophylaxis GI Prophylaxis GI: PPI - Prophylaxis DVT Prophylaxis DVT: SCDs - Nutrition Nutrition: Nutrition Category Date Time Status NPO Diet [DIET] Diets 12/22/16 Breakfast Active Assessment/Plan - Assessment and Plan (Free Text) Assessment: 71 yr old M resident at [facility] with PMHx including HTN, A-fib, dyslipidemia , DM Type 2, diabetic neuropathy, renal insufficiency, PVD, anemia, Dementia, Osteomyelitis R foot bone base on 2015, Avascular Necrosis R Hip, Hx falls , Alcohol abuse admitted to ICU for respiratory failure requiring intubation s/ p pneumonia and septic shock. Patient with fungemia 12/04/16 , UCx + yeast species 12/04/16, Klebsiella pneumoniae 11/21, C. diff + 11/20. Daily CPAP runs. Sons signed consent for scheduled tracheostomy today. PEG tube placement is scheduled for tuesday. 1. Acute Hypercapneic Respiratory Failure 2dary to pneumonia -2nd intubation 12/04 (1st intubation 11/20-extubated 11/24) 2. s/p ventricular arrhythmias, ?? 2dary to alkalosis 3. Sacchromyces cerevisiae Fungemia 4. UTI 5. C diff 6. Anemia of Chronic Disease with coagulopathy 7. GI/DVT prophylaxis 1. remains intubated, daily CPAP trial, ETT repositioned: advanced 2cm; CXR: improving b/l infiltrates, Meropenem x 7 more days (until 12/28), ID on board: Dr. Masters-will follow recommendations, naris Cx + MRSA 2. stable, EKG 12/08/16: sinus rhythm with premature supraventricular complexes with occasional PVC's, prolonged QT, Cardiology-Dr. Barnes 3. repeat BCx 12/20/16 neg x 2; BCx + 12/20/16, ID on board, continue with Voriconazole x 9 more days (until 12/30), as well as vancomycin, vanco trough for tomorrow 4. UA with large leukocyte esterase, occult bacteria 12/14; no replaced, UCx : no growth 5.+ 11/20; (2 negative C diff 11/24, 11/21), 3rd C diff ordered, ID on board 6. H/H stable s/p 1 unit pRBC's transfused 12/14/16, FOBT + 11/21/16 7. Protonix 40mg IV QD/ SCD's; pt will need central line - Date & Time Date: 12/22/16 Time: 07:35 <Sammy Paez - Last Filed: 12/22/16 15:38> Assessment/Plan - Assessment and Plan (Free Text) Plan: Attestation: Patient seen and examined at the bedside with Resident Dr. Salas Low; and I agree with her outline of plans and management as documented below and discussed on AM rounds today, December 22, 2016. Any exceptions or additions are listed in my personal note that follows and reflects my review of all applicable clinical data, and participation in the care of the patient throughout the day in ICU. Uneventful return from OR post-Tracheostomy, still sedated and breathing only at 120-11/ min. MV settings changed to compensate for hypopnea and machine rate increased in the interim to 18 until he fully awakens. Post-op CXR shows possible RLL atelectasis. Will start Chest vibropercussion as he is presently on a Pulm Sport bed. Repeat CXR ordered for AM, no SPo2 deleterious changes noted.
[2016-12-22] MEDS ORDERED: Lidocaine 1% Inj (20ml) ONE (10:24)
[2016-12-22] MEDS ORDERED: Lidocaine 2% w Epi 1:100,000 Inj IJ ONE ×2 (10:25→10:45)
[2016-12-22] MEDS ORDERED: Neostigmine Methylsulfate 3mg/3ml Syringe IV ONE (11:11)
--- NOTE | 2016-12-22 11:17 | PCM.SURG1 ---
Surgeon's Initial Post Op Note - Surgeon's Notes Surgeon: debbi Tangled Yarn Worker: lacy temple Type of Anesthesia: General Endo Anesthesia Administered By: sully Pre-Operative Diagnosis: respiratory insufficiency Operative Findings: calcified trachea Post-Operative Diagnosis: same Operation Performed: tracheostomy with division of thyroid Specimen/Specimens Removed: none Estimated Blood Loss: EBL {In ML}: 5 Blood Products Given: N/A Drains Used: No Drains Post-Op Condition: Poor Date of Surgery/Procedure: 12/22/16 Time of Surgery/Procedure: 10:45
--- NOTE | 2016-12-22 12:41 | CP.PCM.PN ---
Subjective - Date & Time of Evaluation Date of Evaluation: 12/22/16 Time of Evaluation: 12:41 - Subjective Subjective: ID Note- Pt. seen and examined today In ICU. pt. is s/p tracehostomy today. remains on the vent and not responsive. Objective - Vital Signs/Intake and Output Vital Signs (last 24 hours): Temp Pulse Resp BP Pulse Ox 98.9 F 105 H 18 119/72 100 12/22/16 11:35 12/22/16 11:35 12/22/16 11:35 12/22/16 11:35 12/22/16 11:35 Intake and Output: 12/22/16 12/22/16 06:59 18:59 Intake Total 900 200 Output Total 700 Balance 200 200 - Medications Medications: Current Medications Acetaminophen (Tylenol 650mg/20.3ml Solution Ud) 650 mg PO Q6 PRN PRN Reason: fever Last Admin: 12/21/16 12:10 Dose: 650 mg Acetaminophen (Tylenol 650 Mg Supp) 650 mg NV Q6 PRN PRN Reason: Fever >100.4 F Collagenase (Santyl) 1 applic TOP DAILY [facility] Last Admin: 12/22/16 08:25 Dose: 1 applic Furosemide (Lasix) 40 mg PO DAILY [facility] Last Admin: 12/22/16 08:24 Dose: Not Given Voriconazole 300 mg/ Sodium (Chloride) 250 mls @ 125 mls/hr IVPB Q12 LARRY Last Admin: 12/21/16 20:07 Dose: 125 mls/hr Meropenem 1 gm/ Sodium (Chloride) 100 mls @ 100 mls/hr IVPB Q12 LARRY Last Admin: 12/22/16 08:23 Dose: 100 mls/hr Vancomycin HCl 750 mg/ Sodium (Chloride) 250 mls @ 166.667 mls/hr IVPB DAILY [facility] Last Admin: 12/22/16 09:40 Dose: 166.667 mls/hr Insulin Human Lispro (Humalog) 0 units SC Q6 LARRY PRN Reason: Protocol Last Admin: 12/22/16 10:15 Dose: Not Given Metronidazole (Flagyl) 500 mg PO Q8 [facility] Last Admin: 12/22/16 08:24 Dose: Not Given Nystatin (Nystop Topical Powder) 1 applic TOP TID [facility] Last Admin: 12/22/16 08:25 Dose: 1 pow Pantoprazole Sodium (Protonix Inj) 40 mg IVP DAILY LARRY Last Admin: 12/22/16 08:25 Dose: 40 mg - Labs Labs: - Additional Findings Additional findings: - Constitutional Appears: Chronically Ill - ENT Exam Additional comments: ET via trache - Neck Exam Additional comments: supple - Respiratory Exam Additional comments: intubated and on the vent - Cardiovascular Exam Cardiovascular Exam: RRR, +S1, +S2 - GI/Abdominal Exam GI & Abdominal Exam: Soft, Normal Bowel Sounds Additional comments: ND, NT - Extremities Exam Additional comments: dry b/l heel ulcers, no discharge - Neurological Exam Additional comments: on the vent , does not follow commands Laboratory Results - last 72 hr 12/19/16 12/19/16 12/20/16 16:10 22:12 04:45 WBC 8.3 RBC 2.73 L Hgb 8.1 L Hct 25.4 L MCV 93.0 MCH 29.8 MCHC 32.0 L RDW 16.8 H Plt Count 196 MPV 10.6 Neut % (Auto) 60.1 Lymph % (Auto) 27.6 Tift % (Auto) 9.8 Eos % (Auto) 1.9 Baso % (Auto) 0.6 Neut # 5.0 Lymph # 2.3 Tift # 0.8 Eos # 0.2 Baso # 0.0 PT INR APTT Sodium Potassium Chloride Carbon Dioxide Anion Gap BUN Creatinine Est GFR ( Amer) Est GFR (Non-Af Amer) POC Glucose (mg/dL) 122 H 149 H Random Glucose Calcium Magnesium Total Bilirubin AST ALT Alkaline Phosphatase Total Protein Albumin Globulin Albumin/Globulin Ratio 12/20/16 12/20/16 12/20/16 04:45 04:46 16:05 WBC RBC Hgb Hct MCV MCH MCHC RDW Plt Count MPV Neut % (Auto) Lymph % (Auto) Tift % (Auto) Eos % (Auto) Baso % (Auto) Neut # Lymph # Tift # Eos # Baso # PT INR APTT Sodium 145 Potassium 4.4 Chloride 108 H Carbon Dioxide 27 Anion Gap 14 BUN 39 H Creatinine 0.8 Est GFR ( Amer) > 60 Est GFR (Non-Af Amer) > 60 POC Glucose (mg/dL) 126 H 107 Random Glucose 128 H Calcium 7.7 L Magnesium 2.1 Total Bilirubin AST ALT Alkaline Phosphatase Total Protein Albumin Globulin Albumin/Globulin Ratio 12/20/16 12/21/16 12/21/16 21:11 04:10 04:10 WBC 9.1 RBC 3.00 L Hgb 9.1 L Hct 27.7 L MCV 92.1 MCH 30.2 MCHC 32.7 L RDW 16.6 H Plt Count 214 MPV Neut % (Auto) Lymph % (Auto) Tift % (Auto) Eos % (Auto) Baso % (Auto) Neut # Lymph # Tift # Eos # Baso # PT INR APTT Sodium 144 Potassium 4.2 Chloride 107 Carbon Dioxide 29 Anion Gap 12 BUN 38 H Creatinine 0.8 Est GFR ( Amer) > 60 Est GFR (Non-Af Amer) > 60 POC Glucose (mg/dL) 150 H Random Glucose 108 Calcium 7.8 L Magnesium Total Bilirubin AST ALT Alkaline Phosphatase Total Protein Albumin Globulin Albumin/Globulin Ratio 12/21/16 12/21/16 12/21/16 04:57 11:27 15:43 WBC RBC Hgb Hct MCV MCH MCHC RDW Plt Count MPV Neut % (Auto) Lymph % (Auto) Tift % (Auto) Eos % (Auto) Baso % (Auto) Neut # Lymph # Tift # Eos # Baso # PT INR APTT Sodium Potassium Chloride Carbon Dioxide Anion Gap BUN Creatinine Est GFR ( Amer) Est GFR (Non-Af Amer) POC Glucose (mg/dL) 113 H 131 H 142 H Random Glucose Calcium Magnesium Total Bilirubin AST ALT Alkaline Phosphatase Total Protein Albumin Globulin Albumin/Globulin Ratio 12/21/16 12/22/16 12/22/16 21:08 04:30 04:30 WBC 8.1 RBC 2.87 L Hgb 8.6 L Hct 27.1 L MCV 94.6 H D MCH 29.9 MCHC 31.6 L RDW 17.1 H Plt Count 207 MPV 10.9 Neut % (Auto) 55.6 Lymph % (Auto) 29.9 Tift % (Auto) 9.0 Eos % (Auto) 3.0 Baso % (Auto) 2.5 H Neut # 4.5 Lymph # 2.4 Tift # 0.7 Eos # 0.2 Baso # 0.2 PT 13.4 H INR 1.3 H APTT 32.9 Sodium Potassium Chloride Carbon Dioxide Anion Gap BUN Creatinine Est GFR ( Amer) Est GFR (Non-Af Amer) POC Glucose (mg/dL) 131 H Random Glucose Calcium Magnesium Total Bilirubin AST ALT Alkaline Phosphatase Total Protein Albumin Globulin Albumin/Globulin Ratio 12/22/16 12/22/16 12/22/16 04:30 04:46 09:43 WBC RBC Hgb Hct MCV MCH MCHC RDW Plt Count MPV Neut % (Auto) Lymph % (Auto) Tift % (Auto) Eos % (Auto) Baso % (Auto) Neut # Lymph # Tift # Eos # Baso # PT INR APTT Sodium 147 Potassium 4.2 Chloride 110 H Carbon Dioxide 29 Anion Gap 12 BUN 38 H Creatinine 0.8 Est GFR ( Amer) > 60 Est GFR (Non-Af Amer) > 60 POC Glucose (mg/dL) 116 H 103 Random Glucose 94 Calcium 8.0 L Magnesium Total Bilirubin 0.5 AST 43 ALT 24 Alkaline Phosphatase 815 H D Total Protein 6.6 Albumin 2.4 L Globulin 4.2 H Albumin/Globulin Ratio 0.6 L Microbiology 12/20/16 01:35 Trachasp Gram Stain - Final 12/20/16 01:35 Trachasp Sputum Culture - Preliminary Gram Positive Cocci 12/20/16 17:05 Blood-Venous Blood Culture - Preliminary NO GROWTH AFTER 24 HOURS 12/20/16 17:00 Blood-Venous Blood Culture - Preliminary NO GROWTH AFTER 24 HOURS 12/16/16 16:40 Blood-Venous Blood Culture - Final NO GROWTH AFTER 5 DAYS 12/16/16 16:40 Blood-Venous Gram Stain - Final TEST NOT PERFORMED 12/13/16 16:45 Blood-Venous Blood Culture - Final NO GROWTH AFTER 5 DAYS 12/13/16 16:45 Blood-Venous Gram Stain - Final TEST NOT PERFORMED 12/13/16 16:45 Blood-Venous Blood Culture - Final NO GROWTH AFTER 5 DAYS 12/13/16 16:45 Blood-Venous Gram Stain - Final TEST NOT PERFORMED 12/04/16 17:00 Trachasp Gram Stain - Final 12/04/16 17:00 Trachasp Sputum Culture - Final NORMAL ORAL ROSEMARY 12/14/16 17:45 Urine,No Urine Culture - Final No Growth (<1,000 CFU/ML) 12/10/16 18:30 Blood-Venous Blood Culture - Final NO GROWTH AFTER 5 DAYS 12/10/16 18:30 Blood-Venous Gram Stain - Final TEST NOT PERFORMED 12/10/16 18:30 Blood-Venous Blood Culture - Final NO GROWTH AFTER 5 DAYS 12/10/16 18:30 Blood-Venous Gram Stain - Final TEST NOT PERFORMED 12/06/16 17:30 Blood-Venous Blood Culture - Final NO GROWTH AFTER 5 DAYS 12/06/16 17:30 Blood-Venous Gram Stain - Final TEST NOT PERFORMED 12/06/16 17:50 Blood-Venous Blood Culture - Final NO GROWTH AFTER 5 DAYS 12/06/16 17:50 Blood-Venous Gram Stain - Final TEST NOT PERFORMED 12/04/16 00:10 Blood-Venous Blood Culture - Final Saccharomyces Cerevisiae 12/04/16 00:10 Blood-Venous Gram Stain - Final 12/04/16 00:10 Blood-Venous S.aureus & Coag-Neg Staph PNA FISH - Final 12/04/16 00:10 Blood-Venous Blood Culture - Final Saccharomyces Cerevisiae 12/04/16 00:10 Blood-Venous Gram Stain - Final 12/04/16 14:00 Blood S.aureus & Coag-Neg Staph PNA FISH - Final 12/04/16 14:00 Blood Blood Culture - Final Saccharomyces Cerevisiae 12/04/16 14:00 Blood Gram Stain - Final 12/04/16 18:00 Blood-Thru Central Line S.aureus & Coag-Neg Staph PNA FISH - Final 12/04/16 18:00 Blood-Thru Central Line Blood Culture - Final Saccharomyces Cerevisiae 12/04/16 18:00 Blood-Thru Central Line Gram Stain - Final 12/04/16 16:50 Urine,No Urine Culture - Final Yeast Species 12/04/16 18:00 Naris MRSA Culture (Admit) - Final MRSA DETECTED 12/04/16 02:05 Urine,No Urine Culture - Final Yeast Species 11/26/16 20:01 Nose MRSA Culture (Admit) - Final MRSA NOT DETECTED 11/20/16 10:00 Blood-Venous Blood Culture - Final NO GROWTH AFTER 5 DAYS 11/20/16 10:00 Blood-Venous Gram Stain - Final TEST NOT PERFORMED 11/21/16 10:00 Trachasp Gram Stain - Final 11/21/16 10:00 Trachasp Sputum Culture - Final Klebsiella Pneumoniae Ssp Pneu 11/20/16 15:00 Nose MRSA Culture (Admit) - Final MRSA NOT DETECTED 11/20/16 01:57 Urine,No Urine Culture - Final No Growth (<1,000 CFU/ML) Assessment and Plan (1) Respiratory failure Status: Acute (2) Septic shock Status: Acute (3) GEORGINA (acute kidney injury) Status: Acute (4) Fever Status: Acute (5) Fungemia Status: Acute - Assessment and Plan (Free Text) Assessment: A/P- low grade fever today at midnight 100., afebrile after that no changed 6 days ago normal wbc count blood cx from 12/04/2016- yeast sacharomyces cervicedea from both central line and peripheral and urine cx- yeast (new) previous sputum cx from [facility]- Klebsiella brower sensitive + stool c.diff. repeat stool c.diff- negative tox and AG repeat blood cx from 12/06/2016- negative x 2 repeat blood cx from 12/10/2016- negative x 2 repeat blood cx frpm 12/13/2016-neg x 2 repeat blood cx from 12/16-negative repeat blood cx from 12/20- neg x 2 CT abd/pelvis- as per report no perf, no free air and normal bowel. b/l pleural effusion. cxr- as per report b/l interstitial infiltrates improving as per report. pneumonia/resp distress fungemia is on antifungal medication, repeat blood cx are all negative c.diff - resolved fungurea Plan- continue with meropenem for HAP , day #15 for HAP. continue with meropenem for 6 more days pending clinical response. completed 2 days of Micafungin for fungemia but once yeast was ID as sacharomyces was switched to voriconazole. day #13 TTE- no vegetations as per report. continue with voriconazole for 8 more days. continue with IV vancomycin as well, day #3. keep trough <15. check repeat sputum cx and blood cx . ICU time 45 minutes.
--- NOTE | 2016-12-22 14:53 | RAD ---
HISTORY: post tracheostomy placement . Technique: Single view portable semi erect @ 12:00. COMPARISON: December 22, 2016. Study performed 01:33 FINDINGS: LUNGS: New right lower lobe infiltrate. Underlying increased interstitial markings bilaterally. PLEURA: No significant pleural effusion identified, no pneumothorax apparent. CARDIOVASCULAR: Normal. OSSEOUS STRUCTURES: No significant abnormalities. VISUALIZED UPPER ABDOMEN: Normal. OTHER FINDINGS: Status post tracheostomy replacement of previously identified endotracheal tube. Tracheostomy device in satisfactory position. IMPRESSION: Satisfactory position of tracheostomy tube. New right lower lobe infiltrate.
--- NOTE | 2016-12-22 16:02 | CP.PCM.PN ---
Subjective - Date & Time of Evaluation Date of Evaluation: 12/22/16 Time of Evaluation: 09:30 - Subjective Subjective: F/U Respiratory failure. Pt Intubated, no following commands, open eyes to verbal stimuli. Objective - Vital Signs/Intake and Output Vital Signs (last 24 hours): Temp Pulse Resp BP Pulse Ox 98.9 F 103 H 18 135/70 100 12/22/16 12:05 12/22/16 14:00 12/22/16 14:00 12/22/16 14:00 12/22/16 14:00 Intake and Output: 12/22/16 12/22/16 06:59 18:59 Intake Total 900 1030 Output Total 700 Balance 200 1030 - Medications Medications: Current Medications Acetaminophen (Tylenol 650mg/20.3ml Solution Ud) 650 mg PO Q6 PRN PRN Reason: fever Last Admin: 12/21/16 12:10 Dose: 650 mg Acetaminophen (Tylenol 650 Mg Supp) 650 mg HI Q6 PRN PRN Reason: Fever >100.4 F Collagenase (Santyl) 1 applic TOP DAILY [facility] Last Admin: 12/22/16 08:25 Dose: 1 applic Furosemide (Lasix) 40 mg PO DAILY [facility] Last Admin: 12/22/16 08:24 Dose: Not Given Furosemide (Lasix) 40 mg IVP DAILY [facility] Last Admin: 12/22/16 13:05 Dose: 40 mg Voriconazole 300 mg/ Sodium (Chloride) 250 mls @ 125 mls/hr IVPB Q12 [facility] Last Admin: 12/22/16 12:49 Dose: 125 mls/hr Meropenem 1 gm/ Sodium (Chloride) 100 mls @ 100 mls/hr IVPB Q12 [facility] Last Admin: 12/22/16 08:23 Dose: 100 mls/hr Vancomycin HCl 750 mg/ Sodium (Chloride) 250 mls @ 166.667 mls/hr IVPB DAILY [facility] Last Admin: 12/22/16 09:40 Dose: 166.667 mls/hr Insulin Human Lispro (Humalog) 0 units SC Q6 [facility] PRN Reason: Protocol Last Admin: 12/22/16 10:15 Dose: Not Given Nystatin (Nystop Topical Powder) 1 applic TOP TID [facility] Last Admin: 12/22/16 12:51 Dose: 1 pow Pantoprazole Sodium (Protonix Inj) 40 mg IVP DAILY [facility] Last Admin: 12/22/16 08:25 Dose: 40 mg - Labs Labs: 12/22/16 04:30 12/22/16 04:30 PT 13.4 Seconds (9.8-13.1) H 12/22/16 04:30 INR 1.3 (0.9-1.2) H 12/22/16 04:30 APTT 32.9 Seconds (25.6-37.1) 12/22/16 04:30 - Constitutional Appears: Chronically Ill - Head Exam Head Exam: NORMAL INSPECTION - Eye Exam Eye Exam: PERRL - ENT Exam Additional comments: Intubated - Neck Exam Neck Exam: Normal Inspection - Respiratory Exam Respiratory Exam: Decreased Breath Sounds (at bases), Rhonchi (scattered) - Cardiovascular Exam Cardiovascular Exam: REGULAR RHYTHM - GI/Abdominal Exam GI & Abdominal Exam: Soft, Normal Bowel Sounds - Extremities Exam Additional comments: Edema upper and lower extremities, Osteomyelitis R foot. - Back Exam Additional comments: Sacral ulcer - Neurological Exam Additional comments: Intubated, no following commands, generalized weakness. - Psychiatric Exam Psychiatric exam: Flat Affect - Skin Skin Exam: Warm Additional comments: Multiple ulcers: L hip, Sacral, R foot. Assessment and Plan (1) Acute hypercapnic respiratory failure Status: Acute (2) Klebsiella pneumonia Status: Acute (3) Dehydration Status: Acute (4) Septic shock Status: Resolved (5) GEORGINA (acute kidney injury) Status: Acute (6) Type 2 diabetes mellitus with hyperglycemia Status: Chronic (7) HTN (hypertension) Status: Chronic (8) C. difficile colitis Status: Acute (9) Alkaline phosphatase elevation Status: Acute (10) Fungemia Status: Acute - Assessment and Plan (Free Text) Plan: For Tracheostomy today. ICU Time: 37 min.
[2016-12-22] MEDS ORDERED: Dextrose 5%/Lactated Ringer's 1,000 ML IV SCH (18:00)
[2016-12-23 05:28] LABS: ABG ALLEN TEST YES; ABG MECHANICAL RATE 18; ARTERIAL BLOOD GAS HCO3 32.7 mmol/L (21-28); ARTERIAL BLOOD GAS MODE PRVC AC; ARTERIAL BLOOD GAS O2 CAPACITY 13.1 mL/dL (16-24); ARTERIAL BLOOD GAS O2 CONTENT 13.1 ML/dL (15-23); ARTERIAL BLOOD GAS PH 7.54 (7.35-7.45); ARTERIAL BLOOD GAS PO2 104 mm/Hg (80-100); ARTERIAL BLOOD HGB O2 SAT 96.5 % (95.0-98.0); ATERIAL BLOOD GAS PEEP 5; CARBOXYHEMOGLOBIN 1.7 % (0.5-1.5); HHB 0.1 % (0.0-5.0); METHEMOGLOBIN 1.7 % (0.0-3.0)
[2016-12-23 06:25] LABS: BASO # 0.2 K/uL (0.0-0.2); BASO % 2.1 % (0.0-2.0); EOS # 0.1 K/uL (0.0-0.7); EOS % 1.8 % (0.0-4.0); HEMATOCRIT 24.8 % (35.0-51.0); LYMPH # 2.6 K/uL (1.0-4.3); LYMPH % 34.3 % (20.0-40.0); MEAN CELL VOLUME 93.6 fl (80.0-94.0); MEAN CORPUSCULAR HGB CONC 32.1 g/dL (33.0-37.0); MEAN PLATELET VOLUME 10.9 fl (7.2-11.7); MONO # 0.6 K/uL (0.0-0.8); MONO % 8.5 % (0.0-10.0); NEUT % 53.3 % (50.0-75.0); NRBC % 0.1 % (0.0-0.0); RED CELL DISTRIBUTION WIDTH 16.7 % (11.5-14.5); WHITE BLOOD COUNT 7.6 K/uL (4.8-10.8)
[2016-12-23] MEDS: Insulin Lispro (humaLOG) 100 Units/ml Inj SC SCH ×4 (06:30→22:05)
[2016-12-23 06:38] LABS: ALB/GLOB RATIO 0.6 (1.0-2.1); ALKALINE PHOSPHATASE 620 U/L (38-126); ALT/SGPT 22 U/L (21-72); AST/SGOT 29 U/L (17-59); BILIRUBIN,TOTAL 0.6 mg/dl (0.2-1.3); BLOOD UREA NITROGEN 32 mg/dl (9-20); CALCIUM 8.1 mg/dL (8.4-10.2); CARBON DIOXIDE 28 mmol/L (22-30); CHLORIDE 112 mmol/L (98-107); GFR AFRICAN-AMERICAN > 60; GLUCOSE,RANDOM 100 mg/dL (75-110); POTASSIUM 3.5 MMOL/L (3.6-5.0); SODIUM 147 mmol/l (132-148); TOTAL PROTEIN 6.5 G/DL (6.3-8.2)
[2016-12-23] MEDS ORDERED: Potassium Chl 40 mEq in D5-NS 1,000 ML IV SCH ×2 (07:45→20:47)
--- NOTE | 2016-12-23 08:12 | CP.PCM.PN ---
Subjective - Date & Time of Evaluation Date of Evaluation: 12/23/16 Time of Evaluation: 08:11 - Subjective Subjective: Surgery Patient remains in ICU. Patient s/p ope trach placement POD1. No acute events overnight. Patient remains on PRVC vent mode. Objective - Vital Signs/Intake and Output Vital Signs (last 24 hours): Temp Pulse Resp BP Pulse Ox 99.8 F H 100 H 18 143/77 100 12/23/16 04:00 12/23/16 06:00 12/23/16 06:00 12/23/16 06:00 12/23/16 06:00 Intake and Output: 12/23/16 12/23/16 06:59 18:59 Intake Total 1150 Output Total 750 Balance 400 - Medications Medications: Current Medications Acetaminophen (Tylenol 650mg/20.3ml Solution Ud) 650 mg PO Q6 PRN PRN Reason: fever Last Admin: 12/21/16 12:10 Dose: 650 mg Acetaminophen (Tylenol 650 Mg Supp) 650 mg ME Q6 PRN PRN Reason: Fever >100.4 F Collagenase (Santyl) 1 applic TOP DAILY [facility] Last Admin: 12/22/16 08:25 Dose: 1 applic Furosemide (Lasix) 40 mg PO DAILY [facility] Last Admin: 12/22/16 08:24 Dose: Not Given Furosemide (Lasix) 40 mg IVP DAILY [facility] Last Admin: 12/22/16 13:05 Dose: 40 mg Voriconazole 300 mg/ Sodium (Chloride) 250 mls @ 125 mls/hr IVPB Q12 [facility] Last Admin: 12/22/16 20:05 Dose: 125 mls/hr Meropenem 1 gm/ Sodium (Chloride) 100 mls @ 100 mls/hr IVPB Q12 [facility] Last Admin: 12/22/16 20:06 Dose: 100 mls/hr Vancomycin HCl 750 mg/ Sodium (Chloride) 250 mls @ 166.667 mls/hr IVPB DAILY [facility] Last Admin: 12/22/16 09:40 Dose: 166.667 mls/hr Dextrose/Lactated Ringer's (Dextrose 5%/Lactated Ringer's) 1,000 mls @ 80 mls/ hr IV .[id number] [facility] Stop: 12/23/16 17:54 Last Admin: 12/22/16 18:36 Dose: 80 mls/hr Potassium Chloride/Dextrose/Sod Cl (D5-Ns1l+40meq Kcl) 1,000 mls @ 80 mls/hr IV .[id number] [facility] Stop: 12/24/16 07:44 Insulin Human Lispro (Humalog) 0 units SC Q6 [facility] PRN Reason: Protocol Last Admin: 12/23/16 06:30 Dose: Not Given Nystatin (Nystop Topical Powder) 1 applic TOP TID [facility] Last Admin: 12/22/16 16:30 Dose: 1 pow Pantoprazole Sodium (Protonix Inj) 40 mg IVP DAILY [facility] Last Admin: 12/22/16 08:25 Dose: 40 mg - Labs Labs: 12/23/16 05:00 12/23/16 05:00 PT 13.4 Seconds (9.8-13.1) H 12/22/16 04:30 INR 1.3 (0.9-1.2) H 12/22/16 04:30 APTT 32.9 Seconds (25.6-37.1) 12/22/16 04:30 - Constitutional Appears: Chronically Ill - Head Exam Head Exam: ATRAUMATIC, NORMOCEPHALIC - Neck Exam Additional comments: Tracheosotomy in place with cotton tie around neck. No evidence of swelling or hematoma superior or inferior to trach. Minimal blood tinged drainage on cotton strap. Otherwise clean and dry. - Respiratory Exam Respiratory Exam: absent: Respiratory Distress Assessment and Plan - Assessment and Plan (Free Text) Assessment: 71 y/o male w/ respiratory failure s/p open tracheostomy placement POD1 Plan: -no further intervention required at this time -leave tracheostomy in place w/ cotton strap -monitor for bleeding -further management per ICU -further recs per attending AKWhite PGY3
[2016-12-23] MEDS: Meropenem 1 GM in Sodium Chloride 0.9% 100 ML IVPB SCH ×2 (08:43→21:54)
[2016-12-23] MEDS: Santyl Collagenase OINTMENT TOP SCH (08:44)
--- NOTE | 2016-12-23 09:55 | CP.PCM.PN ---
Subjective - Date & Time of Evaluation Date of Evaluation: 12/23/16 Time of Evaluation: 12:00 - Subjective Subjective: Id Note- Pt. seen and examined today in ICU. remains on the vent . no new events. as per nurse will go for peg . Objective - Vital Signs/Intake and Output Vital Signs (last 24 hours): Temp Pulse Resp BP Pulse Ox 99.0 F 98 H 18 137/70 100 12/23/16 08:00 12/23/16 08:00 12/23/16 08:00 12/23/16 08:44 12/23/16 08:00 Intake and Output: 12/23/16 12/23/16 06:59 18:59 Intake Total 1150 Output Total 750 Balance 400 - Medications Medications: Current Medications Acetaminophen (Tylenol 650mg/20.3ml Solution Ud) 650 mg PO Q6 PRN PRN Reason: fever Last Admin: 12/21/16 12:10 Dose: 650 mg Acetaminophen (Tylenol 650 Mg Supp) 650 mg IN Q6 PRN PRN Reason: Fever >100.4 F Collagenase (Santyl) 1 applic TOP DAILY [facility] Last Admin: 12/23/16 08:44 Dose: 1 applic Furosemide (Lasix) 40 mg PO DAILY [facility] Last Admin: 12/22/16 08:24 Dose: Not Given Furosemide (Lasix) 40 mg IVP DAILY [facility] Last Admin: 12/23/16 08:44 Dose: 40 mg Voriconazole 300 mg/ Sodium (Chloride) 250 mls @ 125 mls/hr IVPB Q12 [facility] Last Admin: 12/22/16 20:05 Dose: 125 mls/hr Meropenem 1 gm/ Sodium (Chloride) 100 mls @ 100 mls/hr IVPB Q12 [facility] Last Admin: 12/23/16 08:43 Dose: 100 mls/hr Vancomycin HCl 750 mg/ Sodium (Chloride) 250 mls @ 166.667 mls/hr IVPB DAILY [facility] Last Admin: 12/23/16 08:42 Dose: 166.667 mls/hr Dextrose/Lactated Ringer's (Dextrose 5%/Lactated Ringer's) 1,000 mls @ 80 mls/ hr IV .[id number] [facility] Stop: 12/23/16 17:54 Last Admin: 12/22/16 18:36 Dose: 80 mls/hr Potassium Chloride/Dextrose/Sod Cl (D5-Ns1l+40meq Kcl) 1,000 mls @ 80 mls/hr IV .[id number] [facility] Stop: 12/24/16 07:44 Cefazolin Sodium 1 gm/ Sodium (Chloride) 100 mls @ 100 mls/hr IVPB Q12 [facility] Insulin Human Lispro (Humalog) 0 units SC Q6 [facility] PRN Reason: Protocol Last Admin: 12/23/16 06:30 Dose: Not Given Nystatin (Nystop Topical Powder) 1 applic TOP TID [facility] Last Admin: 12/23/16 08:44 Dose: 1 pow Pantoprazole Sodium (Protonix Inj) 40 mg IVP DAILY [facility] Last Admin: 12/23/16 08:43 Dose: 40 mg - Labs Labs: - Additional Findings Additional findings: - Constitutional Appears: Chronically Ill - ENT Exam Additional comments: ET via trache - Neck Exam Additional comments: supple - Respiratory Exam Additional comments: intubated and on the vent - Cardiovascular Exam Cardiovascular Exam: RRR, +S1, +S2 - GI/Abdominal Exam GI & Abdominal Exam: Soft, Normal Bowel Sounds Additional comments: ND, NT - Extremities Exam Additional comments: dry b/l heel ulcers, no discharge - Neurological Exam Additional comments: on the vent , does not follow commands Laboratory Results - last 72 hr 12/20/16 12/20/16 12/21/16 16:05 21:11 04:10 WBC 9.1 RBC 3.00 L Hgb 9.1 L Hct 27.7 L MCV 92.1 MCH 30.2 MCHC 32.7 L RDW 16.6 H Plt Count 214 MPV Neut % (Auto) Lymph % (Auto) [place] % (Auto) Eos % (Auto) Baso % (Auto) Neut # Lymph # [place] # Eos # Baso # PT INR APTT pCO2 pO2 HCO3 ABG pH ABG Total CO2 ABG O2 Saturation ABG O2 Content ABG Base Excess ABG Hemoglobin ABG Carboxyhemoglobin POC ABG HHb (Measured) ABG Methemoglobin ABG O2 Capacity Torres Test A-a O2 Difference Hgb O2 Saturation Vent Mode Mechanical Rate FiO2 Tidal Volume PEEP Sodium Potassium Chloride Carbon Dioxide Anion Gap BUN Creatinine Est GFR ( Amer) Est GFR (Non-Af Amer) POC Glucose (mg/dL) 107 150 H Random Glucose Calcium Total Bilirubin AST ALT Alkaline Phosphatase Total Protein Albumin Globulin Albumin/Globulin Ratio Vancomycin Trough 12/21/16 12/21/16 12/21/16 04:10 04:57 11:27 WBC RBC Hgb Hct MCV MCH MCHC RDW Plt Count MPV Neut % (Auto) Lymph % (Auto) [place] % (Auto) Eos % (Auto) Baso % (Auto) Neut # Lymph # [place] # Eos # Baso # PT INR APTT pCO2 pO2 HCO3 ABG pH ABG Total CO2 ABG O2 Saturation ABG O2 Content ABG Base Excess ABG Hemoglobin ABG Carboxyhemoglobin POC ABG HHb (Measured) ABG Methemoglobin ABG O2 Capacity Torres Test A-a O2 Difference Hgb O2 Saturation Vent Mode Mechanical Rate FiO2 Tidal Volume PEEP Sodium 144 Potassium 4.2 Chloride 107 Carbon Dioxide 29 Anion Gap 12 BUN 38 H Creatinine 0.8 Est GFR ( Amer) > 60 Est GFR (Non-Af Amer) > 60 POC Glucose (mg/dL) 113 H 131 H Random Glucose 108 Calcium 7.8 L Total Bilirubin AST ALT Alkaline Phosphatase Total Protein Albumin Globulin Albumin/Globulin Ratio Vancomycin Trough 12/21/16 12/21/16 12/22/16 15:43 21:08 04:30 WBC 8.1 RBC 2.87 L Hgb 8.6 L Hct 27.1 L MCV 94.6 H D MCH 29.9 MCHC 31.6 L RDW 17.1 H Plt Count 207 MPV 10.9 Neut % (Auto) 55.6 Lymph % (Auto) 29.9 [place] % (Auto) 9.0 Eos % (Auto) 3.0 Baso % (Auto) 2.5 H Neut # 4.5 Lymph # 2.4 [place] # 0.7 Eos # 0.2 Baso # 0.2 PT INR APTT pCO2 pO2 HCO3 ABG pH ABG Total CO2 ABG O2 Saturation ABG O2 Content ABG Base Excess ABG Hemoglobin ABG Carboxyhemoglobin POC ABG HHb (Measured) ABG Methemoglobin ABG O2 Capacity Torres Test A-a O2 Difference Hgb O2 Saturation Vent Mode Mechanical Rate FiO2 Tidal Volume PEEP Sodium Potassium Chloride Carbon Dioxide Anion Gap BUN Creatinine Est GFR ( Amer) Est GFR (Non-Af Amer) POC Glucose (mg/dL) 142 H 131 H Random Glucose Calcium Total Bilirubin AST ALT Alkaline Phosphatase Total Protein Albumin Globulin Albumin/Globulin Ratio Vancomycin Trough 12/22/16 12/22/16 12/22/16 04:30 04:30 04:46 WBC RBC Hgb Hct MCV MCH MCHC RDW Plt Count MPV Neut % (Auto) Lymph % (Auto) [place] % (Auto) Eos % (Auto) Baso % (Auto) Neut # Lymph # [place] # Eos # Baso # PT 13.4 H INR 1.3 H APTT 32.9 pCO2 pO2 HCO3 ABG pH ABG Total CO2 ABG O2 Saturation ABG O2 Content ABG Base Excess ABG Hemoglobin ABG Carboxyhemoglobin POC ABG HHb (Measured) ABG Methemoglobin ABG O2 Capacity Torres Test A-a O2 Difference Hgb O2 Saturation Vent Mode Mechanical Rate FiO2 Tidal Volume PEEP Sodium 147 Potassium 4.2 Chloride 110 H Carbon Dioxide 29 Anion Gap 12 BUN 38 H Creatinine 0.8 Est GFR ( Amer) > 60 Est GFR (Non-Af Amer) > 60 POC Glucose (mg/dL) 116 H Random Glucose 94 Calcium 8.0 L Total Bilirubin 0.5 AST 43 ALT 24 Alkaline Phosphatase 815 H D Total Protein 6.6 Albumin 2.4 L Globulin 4.2 H Albumin/Globulin Ratio 0.6 L Vancomycin Trough 12/22/16 12/22/16 12/22/16 09:43 15:52 22:27 WBC RBC Hgb Hct MCV MCH MCHC RDW Plt Count MPV Neut % (Auto) Lymph % (Auto) [place] % (Auto) Eos % (Auto) Baso % (Auto) Neut # Lymph # [place] # Eos # Baso # PT INR APTT pCO2 pO2 HCO3 ABG pH ABG Total CO2 ABG O2 Saturation ABG O2 Content ABG Base Excess ABG Hemoglobin ABG Carboxyhemoglobin POC ABG HHb (Measured) ABG Methemoglobin ABG O2 Capacity Torres Test A-a O2 Difference Hgb O2 Saturation Vent Mode Mechanical Rate FiO2 Tidal Volume PEEP Sodium Potassium Chloride Carbon Dioxide Anion Gap BUN Creatinine Est GFR ( Amer) Est GFR (Non-Af Amer) POC Glucose (mg/dL) 103 97 95 Random Glucose Calcium Total Bilirubin AST ALT Alkaline Phosphatase Total Protein Albumin Globulin Albumin/Globulin Ratio Vancomycin Trough 12/23/16 12/23/16 12/23/16 05:00 05:00 05:10 WBC 7.6 RBC 2.65 L Hgb 7.9 L Hct 24.8 L MCV 93.6 MCH 30.0 MCHC 32.1 L RDW 16.7 H Plt Count 201 MPV 10.9 Neut % (Auto) 53.3 Lymph % (Auto) 34.3 [place] % (Auto) 8.5 Eos % (Auto) 1.8 Baso % (Auto) 2.1 H Neut # 4.0 Lymph # 2.6 [place] # 0.6 Eos # 0.1 Baso # 0.2 PT INR APTT pCO2 39 pO2 104 H HCO3 32.7 H ABG pH 7.54 H ABG Total CO2 34.5 H ABG O2 Saturation 99.9 H ABG O2 Content 13.1 L ABG Base Excess 10.0 H ABG Hemoglobin 9.5 L ABG Carboxyhemoglobin 1.7 H POC ABG HHb (Measured) 0.1 ABG Methemoglobin 1.7 ABG O2 Capacity 13.1 L Torres Test Yes A-a O2 Difference 97.0 Hgb O2 Saturation 96.5 Vent Mode Prvc ac Mechanical Rate 18 FiO2 35.0 Tidal Volume 450 PEEP 5 Sodium 147 Potassium 3.5 L Chloride 112 H Carbon Dioxide 28 Anion Gap 11 BUN 32 H Creatinine 0.8 Est GFR ( Amer) > 60 Est GFR (Non-Af Amer) > 60 POC Glucose (mg/dL) Random Glucose 100 Calcium 8.1 L Total Bilirubin 0.6 AST 29 ALT 22 Alkaline Phosphatase 620 H D Total Protein 6.5 Albumin 2.4 L Globulin 4.1 H Albumin/Globulin Ratio 0.6 L Vancomycin Trough 12/23/16 12/23/16 12/23/16 05:52 08:50 11:26 WBC RBC Hgb Hct MCV MCH MCHC RDW Plt Count MPV Neut % (Auto) Lymph % (Auto) [place] % (Auto) Eos % (Auto) Baso % (Auto) Neut # Lymph # [place] # Eos # Baso # PT INR APTT pCO2 pO2 HCO3 ABG pH ABG Total CO2 ABG O2 Saturation ABG O2 Content ABG Base Excess ABG Hemoglobin ABG Carboxyhemoglobin POC ABG HHb (Measured) ABG Methemoglobin ABG O2 Capacity Torres Test A-a O2 Difference Hgb O2 Saturation Vent Mode Mechanical Rate FiO2 Tidal Volume PEEP Sodium Potassium Chloride Carbon Dioxide Anion Gap BUN Creatinine Est GFR ( Amer) Est GFR (Non-Af Amer) POC Glucose (mg/dL) 121 H 136 H Random Glucose Calcium Total Bilirubin AST ALT Alkaline Phosphatase Total Protein Albumin Globulin Albumin/Globulin Ratio Vancomycin Trough 13.6 H Microbiology 12/20/16 01:35 Trachasp Gram Stain - Final 12/20/16 01:35 Trachasp Sputum Culture - Final Enterococcus Faecalis 12/20/16 17:05 Blood-Venous Blood Culture - Preliminary NO GROWTH AFTER 48 HOURS 12/20/16 17:00 Blood-Venous Blood Culture - Preliminary NO GROWTH AFTER 48 HOURS 12/16/16 16:40 Blood-Venous Blood Culture - Final NO GROWTH AFTER 5 DAYS 12/16/16 16:40 Blood-Venous Gram Stain - Final TEST NOT PERFORMED 12/13/16 16:45 Blood-Venous Blood Culture - Final NO GROWTH AFTER 5 DAYS 12/13/16 16:45 Blood-Venous Gram Stain - Final TEST NOT PERFORMED 12/13/16 16:45 Blood-Venous Blood Culture - Final NO GROWTH AFTER 5 DAYS 12/13/16 16:45 Blood-Venous Gram Stain - Final TEST NOT PERFORMED 12/04/16 17:00 Trachasp Gram Stain - Final 12/04/16 17:00 Trachasp Sputum Culture - Final NORMAL ORAL ROSEMARY 12/14/16 17:45 Urine,Triplett Urine Culture - Final No Growth (<1,000 CFU/ML) 12/10/16 18:30 Blood-Venous Blood Culture - Final NO GROWTH AFTER 5 DAYS 12/10/16 18:30 Blood-Venous Gram Stain - Final TEST NOT PERFORMED 12/10/16 18:30 Blood-Venous Blood Culture - Final NO GROWTH AFTER 5 DAYS 12/10/16 18:30 Blood-Venous Gram Stain - Final TEST NOT PERFORMED 12/06/16 17:30 Blood-Venous Blood Culture - Final NO GROWTH AFTER 5 DAYS 12/06/16 17:30 Blood-Venous Gram Stain - Final TEST NOT PERFORMED 12/06/16 17:50 Blood-Venous Blood Culture - Final NO GROWTH AFTER 5 DAYS 12/06/16 17:50 Blood-Venous Gram Stain - Final TEST NOT PERFORMED 12/04/16 00:10 Blood-Venous Blood Culture - Final Saccharomyces Cerevisiae 12/04/16 00:10 Blood-Venous Gram Stain - Final 12/04/16 00:10 Blood-Venous S.aureus & Coag-Neg Staph PNA FISH - Final 12/04/16 00:10 Blood-Venous Blood Culture - Final Saccharomyces Cerevisiae 12/04/16 00:10 Blood-Venous Gram Stain - Final 12/04/16 14:00 Blood S.aureus & Coag-Neg Staph PNA FISH - Final 12/04/16 14:00 Blood Blood Culture - Final Saccharomyces Cerevisiae 12/04/16 14:00 Blood Gram Stain - Final 12/04/16 18:00 Blood-Thru Central Line S.aureus & Coag-Neg Staph PNA FISH - Final 12/04/16 18:00 Blood-Thru Central Line Blood Culture - Final Saccharomyces Cerevisiae 12/04/16 18:00 Blood-Thru Central Line Gram Stain - Final 12/04/16 16:50 Urine,Triplett Urine Culture - Final Yeast Species 12/04/16 18:00 Naris MRSA Culture (Admit) - Final MRSA DETECTED 12/04/16 02:05 Urine,Triplett Urine Culture - Final Yeast Species 11/26/16 20:01 Nose MRSA Culture (Admit) - Final MRSA NOT DETECTED 11/20/16 10:00 Blood-Venous Blood Culture - Final NO GROWTH AFTER 5 DAYS 11/20/16 10:00 Blood-Venous Gram Stain - Final TEST NOT PERFORMED 11/21/16 10:00 Trachasp Gram Stain - Final 11/21/16 10:00 Trachasp Sputum Culture - Final Klebsiella Pneumoniae Ssp Pneu 11/20/16 15:00 Nose MRSA Culture (Admit) - Final MRSA NOT DETECTED 11/20/16 01:57 Urine,Triplett Urine Culture - Final No Growth (<1,000 CFU/ML) Assessment and Plan (1) Respiratory failure Status: Acute (2) Septic shock Status: Acute (3) GEORGINA (acute kidney injury) Status: Acute (4) Fever Status: Acute (5) Fungemia Status: Acute - Assessment and Plan (Free Text) Assessment: A/P- afebirle today normal wbc count new trach asp cx- E.Fecalis sensitive to vancomycin blood cx from 12/04/2016- 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 repeat stool c.diff- negative tox and AG repeat blood cx from 12/06/2016- negative x 2 repeat blood cx from 12/10/2016- negative x 2 repeat blood cx frpm 12/13/2016-neg x 2 repeat blood cx from 12/16-negative repeat blood cx from 12/20- neg x 2 CT abd/pelvis- as per report no perf, no free air and normal bowel. b/l pleural effusion. cxr- as per report b/l interstitial infiltrates improving as per report. pneumonia/resp distress fungemia is on antifungal medication, repeat blood cx are all negative c.diff - resolved Plan- continue with meropenem for HAP , day #16 for HAP. continue with meropenem for 5 more days pending clinical response. completed 2 days of Micafungin for fungemia but once yeast was ID as sacharomyces was switched to voriconazole. day #14. TTE- no vegetations as per report. continue with voriconazole for 7 more days. continue with IV vancomycin as well, day #4.( for HAP and will treat the e.fecalis in trach asp cx) . keep trough <15. all above d/w ICU team. ICU time 50 minutes.
--- NOTE | 2016-12-23 10:59 | CP.CCUPN ---
Addendum entered and electronically signed by Lilian Low MD 12/23/16 12 :22: Sputum Cx resulted Enterococcus faecalis, sensitive to ampicillin/penicillin/ vancomycin. Original Note: <Lilian Low - Last Filed: 12/23/16 10:43> CCU Subjective - Physician Review Subjective (Free Text): 12/23/16 10:43 POD 1 s/p open tracheostomy Patient seen and examined at bedside. Tracheostomy tube in place, no drainage, dependant on mechanical ventilation, pt is more alert, opens eyes when prompted , does not follow any other commands. No spontaneous movements of head nor extremities noted. CCU Objective - Vital Signs / Intake & Output Vital Signs (Last 4 hours): Vital Signs Temp Pulse Resp BP Pulse Ox 12/23/16 08:44 137/70 12/23/16 08:00 99.0 F 98 H 18 137/70 100 Intake and Output (Last 8hrs): Intake & Output 12/22/16 12/23/16 12/23/16 22:59 06:59 14:59 Intake Total 910 640 Output Total 1700 750 Balance -790 -110 Intake: IV 560 640 Intake, Piggyback 350 Output: Urine 1700 750 Urethral (No) 1700 750 - Physical Exam Head: Positive for: Atraumatic, Normocephalic Mouth: Positive for: Moist Mucous Membranes Neck: Positive for: Other (mechanical ventilation via tracheostomy tube in place ). Negative for: Meningeal Signs, JVD, Lymphadenopathy Respiratory/Chest: Positive for: Decreased Breath Sounds. Negative for: Accessory Muscle Use, Wheezes, Rhonchi Cardiovascular: Positive for: Regular Rate and Rhythm. Negative for: Murmurs, Rub Abdomen: Negative for: Tenderness, Distention Rectal: Positive for: Other (rectal tube with liquid brown stool) Genitourinary Male: Positive for: Other (no catheter in place, draining clear yellow urine) Upper Extremity: Positive for: Edema (improved b/l edema, 2 left hand IV's in place) Lower Extremity: Positive for: Edema (bilateral-improved), Other (osteomyelitis of right foot). Negative for: CALF TENDERNESS, Cyanosis Neurological: Positive for: Other (minimally responsive-only opened eyes when verbally prompted to do so) Skin: Positive for: Warm, Other (multiple ulcers (sacral, left hip, right foot)- improving per wound care ). Negative for: Rashes Psychiatric: Negative for: Alert, Lethargic - Medications Active Medications: Active Medications Generic Name Dose Route Start Last Admin Trade Name Freq PRN Reason Stop Dose Admin Acetaminophen 650 mg 12/12/16 21:03 12/21/16 12:10 Tylenol 650mg/20.3ml Solution Ud PO 650 mg Q6 PRN Administration fever Acetaminophen 650 mg 12/22/16 10:30 Tylenol 650 Mg Supp [place] Q6 PRN Fever >100.4 F Collagenase 1 applic 12/08/16 16:15 12/23/16 08:44 Santyl TOP 1 applic DAILY LARRY Administration Furosemide 40 mg 12/19/16 09:15 12/22/16 08:24 Lasix PO Not Given DAILY LARRY Furosemide 40 mg 12/22/16 13:00 12/23/16 08:44 Lasix IVP 40 mg DAILY LARRY Administration Voriconazole 300 mg/ Sodium 250 mls @ 125 mls/hr 12/10/16 09:00 12/22/16 20: 05 Chloride IVPB 125 mls/hr Q12 LARRY Administration Meropenem 1 gm/ Sodium 100 mls @ 100 mls/hr 12/13/16 21:00 12/23/16 08:43 Chloride IVPB 100 mls/hr Q12 LARRY Administration Vancomycin HCl 750 mg/ Sodium 250 mls @ 166.667 mls/hr 12/20/16 16:00 08:42 Chloride IVPB 166.667 mls/hr DAILY LARRY Administration Dextrose/Lactated Ringer's 1,000 mls @ 80 mls/hr 12/22/16 18:00 12/22/16 18: 36 Dextrose 5%/Lactated Ringer's IV 12/23/16 17:54 80 mls/hr .[id number] LARRY Administration Potassium Chloride/Dextrose/Sod Cl 1,000 mls @ 80 mls/hr 12/23/16 07:45 12/23 09:55 D5-Ns1l+40meq Kcl IV 12/24/16 07:44 80 mls/hr .[id number] LARRY Administration Cefazolin Sodium 1 gm/ Sodium 100 mls @ 100 mls/hr 12/24/16 09:00 Chloride IVPB Q12 LARRY Insulin Human Lispro 0 units 12/06/16 22:00 09/21/17 06:30 Humalog SC Not Given Q6 [facility] Protocol Nystatin 1 applic 12/08/16 17:00 12/23/16 08:44 Nystop Topical Powder TOP 1 pow TID LARRY Administration Pantoprazole Sodium 40 mg 12/20/16 10:30 12/23/16 08:43 Protonix Inj IVP 40 mg DAILY LARRY Administration - Patient Studies Lab Studies: Microbiology Studies 12/20/16 17:05 Blood Culture - Preliminary Blood-Venous NO GROWTH AFTER 48 HOURS 12/20/16 17:00 Blood Culture - Preliminary Blood-Venous NO GROWTH AFTER 48 HOURS 12/20/16 01:35 Gram Stain - Final Trachasp Sputum Culture - Preliminary Gram Positive Cocci Lab Studies 12/23/16 12/23/16 12/23/16 Range/Units 08:50 05:52 05:10 WBC (4.8-10.8) K/uL RBC (4.40-5.90) Mil/uL Hgb (12.0-18.0) g/dL Hct (35.0-51.0) % MCV (80.0-94.0) fl MCH (27.0-31.0) pg MCHC (33.0-37.0) g/dL RDW (11.5-14.5) % Plt Count (130-400) K/uL MPV (7.2-11.7) fl Neut % (Auto) (50.0-75.0) % Lymph % (Auto) (20.0-40.0) % [place] % (Auto) (0.0-10.0) % Eos % (Auto) (0.0-4.0) % Baso % (Auto) (0.0-2.0) % Neut # (1.8-7.0) K/uL Lymph # (1.0-4.3) K/uL [place] # (0.0-0.8) K/uL Eos # (0.0-0.7) K/uL Baso # (0.0-0.2) K/uL pCO2 39 (35-45) mm/Hg pO2 104 H (80-100) mm/Hg HCO3 32.7 H (21-28) mmol/L ABG pH 7.54 H (7.35-7.45) ABG Total CO2 34.5 H (22-28) mmol/L ABG O2 Saturation 99.9 H (95-98) % ABG O2 Content 13.1 L (15-23) ML/dL ABG Base Excess 10.0 H (-2.0-3.0) mmol/L ABG Hemoglobin 9.5 L (11.7-17.4) g/dL ABG Carboxyhemoglobin 1.7 H (0.5-1.5) % POC ABG HHb (Measured) 0.1 (0.0-5.0) % ABG Methemoglobin 1.7 (0.0-3.0) % ABG O2 Capacity 13.1 L (16-24) mL/dL Torres Test Yes A-a O2 Difference 97.0 mm/Hg Hgb O2 Saturation 96.5 (95.0-98.0) % Vent Mode Prvc ac Mechanical Rate 18 FiO2 35.0 % Tidal Volume 450 PEEP 5 Sodium (132-148) mmol/l Potassium (3.6-5.0) MMOL/L Chloride (98-107) mmol/L Carbon Dioxide (22-30) mmol/L Anion Gap (10-20) BUN (9-20) mg/dl Creatinine (0.8-1.5) mg/dL Est GFR ( Amer) Est GFR (Non-Af Amer) POC Glucose (mg/dL) 121 H (65-110) mg/dL Random Glucose (75-110) mg/dL Calcium (8.4-10.2) mg/dL Total Bilirubin (0.2-1.3) mg/dl AST (17-59) U/L ALT (21-72) U/L Alkaline Phosphatase (38-126) U/L Total Protein (6.3-8.2) G/DL Albumin (3.5-5.0) g/dL Globulin (2.2-3.9) gm/dL Albumin/Globulin Ratio (1.0-2.1) Vancomycin Trough 13.6 H (5.0-10.0) ug/mL 12/23/16 12/23/16 12/22/16 Range/Units 05:00 05:00 22:27 WBC 7.6 (4.8-10.8) K/uL RBC 2.65 L (4.40-5.90) Mil/uL Hgb 7.9 L (12.0-18.0) g/dL Hct 24.8 L (35.0-51.0) % MCV 93.6 (80.0-94.0) fl MCH 30.0 (27.0-31.0) pg MCHC 32.1 L (33.0-37.0) g/dL RDW 16.7 H (11.5-14.5) % Plt Count 201 (130-400) K/uL MPV 10.9 (7.2-11.7) fl Neut % (Auto) 53.3 (50.0-75.0) % Lymph % (Auto) 34.3 (20.0-40.0) % [place] % (Auto) 8.5 (0.0-10.0) % Eos % (Auto) 1.8 (0.0-4.0) % Baso % (Auto) 2.1 H (0.0-2.0) % Neut # 4.0 (1.8-7.0) K/uL Lymph # 2.6 (1.0-4.3) K/uL [place] # 0.6 (0.0-0.8) K/uL Eos # 0.1 (0.0-0.7) K/uL Baso # 0.2 (0.0-0.2) K/uL pCO2 (35-45) mm/Hg pO2 (80-100) mm/Hg HCO3 (21-28) mmol/L ABG pH (7.35-7.45) ABG Total CO2 (22-28) mmol/L ABG O2 Saturation (95-98) % ABG O2 Content (15-23) ML/dL ABG Base Excess (-2.0-3.0) mmol/L ABG Hemoglobin (11.7-17.4) g/dL ABG Carboxyhemoglobin (0.5-1.5) % POC ABG HHb (Measured) (0.0-5.0) % ABG Methemoglobin (0.0-3.0) % ABG O2 Capacity (16-24) mL/dL Torres Test A-a O2 Difference mm/Hg Hgb O2 Saturation (95.0-98.0) % Vent Mode Mechanical Rate FiO2 % Tidal Volume PEEP Sodium 147 (132-148) mmol/l Potassium 3.5 L (3.6-5.0) MMOL/L Chloride 112 H (98-107) mmol/L Carbon Dioxide 28 (22-30) mmol/L Anion Gap 11 (10-20) BUN 32 H (9-20) mg/dl Creatinine 0.8 (0.8-1.5) mg/dL Est GFR ( Amer) > 60 Est GFR (Non-Af Amer) > 60 POC Glucose (mg/dL) 95 (65-110) mg/dL Random Glucose 100 (75-110) mg/dL Calcium 8.1 L (8.4-10.2) mg/dL Total Bilirubin 0.6 (0.2-1.3) mg/dl AST 29 (17-59) U/L ALT 22 (21-72) U/L Alkaline Phosphatase 620 H D (38-126) U/L Total Protein 6.5 (6.3-8.2) G/DL Albumin 2.4 L (3.5-5.0) g/dL Globulin 4.1 H (2.2-3.9) gm/dL Albumin/Globulin Ratio 0.6 L (1.0-2.1) Vancomycin Trough (5.0-10.0) ug/mL 12/22/16 Range/Units 15:52 WBC (4.8-10.8) K/uL RBC (4.40-5.90) Mil/uL Hgb (12.0-18.0) g/dL Hct (35.0-51.0) % MCV (80.0-94.0) fl MCH (27.0-31.0) pg MCHC (33.0-37.0) g/dL RDW (11.5-14.5) % Plt Count (130-400) K/uL MPV (7.2-11.7) fl Neut % (Auto) (50.0-75.0) % Lymph % (Auto) (20.0-40.0) % [place] % (Auto) (0.0-10.0) % Eos % (Auto) (0.0-4.0) % Baso % (Auto) (0.0-2.0) % Neut # (1.8-7.0) K/uL Lymph # (1.0-4.3) K/uL [place] # (0.0-0.8) K/uL Eos # (0.0-0.7) K/uL Baso # (0.0-0.2) K/uL pCO2 (35-45) mm/Hg pO2 (80-100) mm/Hg HCO3 (21-28) mmol/L ABG pH (7.35-7.45) ABG Total CO2 (22-28) mmol/L ABG O2 Saturation (95-98) % ABG O2 Content (15-23) ML/dL ABG Base Excess (-2.0-3.0) mmol/L ABG Hemoglobin (11.7-17.4) g/dL ABG Carboxyhemoglobin (0.5-1.5) % POC ABG HHb (Measured) (0.0-5.0) % ABG Methemoglobin (0.0-3.0) % ABG O2 Capacity (16-24) mL/dL Torres Test A-a O2 Difference mm/Hg Hgb O2 Saturation (95.0-98.0) % Vent Mode Mechanical Rate FiO2 % Tidal Volume PEEP Sodium (132-148) mmol/l Potassium (3.6-5.0) MMOL/L Chloride (98-107) mmol/L Carbon Dioxide (22-30) mmol/L Anion Gap (10-20) BUN (9-20) mg/dl Creatinine (0.8-1.5) mg/dL Est GFR ( Amer) Est GFR (Non-Af Amer) POC Glucose (mg/dL) 97 (65-110) mg/dL Random Glucose (75-110) mg/dL Calcium (8.4-10.2) mg/dL Total Bilirubin (0.2-1.3) mg/dl AST (17-59) U/L ALT (21-72) U/L Alkaline Phosphatase (38-126) U/L Total Protein (6.3-8.2) G/DL Albumin (3.5-5.0) g/dL Globulin (2.2-3.9) gm/dL Albumin/Globulin Ratio (1.0-2.1) Vancomycin Trough (5.0-10.0) ug/mL Laboratory Results - last 24 hr 12/22/16 12/22/16 12/23/16 15:52 22:27 05:00 WBC 7.6 RBC 2.65 L Hgb 7.9 L Hct 24.8 L MCV 93.6 MCH 30.0 MCHC 32.1 L RDW 16.7 H Plt Count 201 MPV 10.9 Neut % (Auto) 53.3 Lymph % (Auto) 34.3 [place] % (Auto) 8.5 Eos % (Auto) 1.8 Baso % (Auto) 2.1 H Neut # 4.0 Lymph # 2.6 [place] # 0.6 Eos # 0.1 Baso # 0.2 pCO2 pO2 HCO3 ABG pH ABG Total CO2 ABG O2 Saturation ABG O2 Content ABG Base Excess ABG Hemoglobin ABG Carboxyhemoglobin POC ABG HHb (Measured) ABG Methemoglobin ABG O2 Capacity Torres Test A-a O2 Difference Hgb O2 Saturation Vent Mode Mechanical Rate FiO2 Tidal Volume PEEP Sodium Potassium Chloride Carbon Dioxide Anion Gap BUN Creatinine Est GFR ( Amer) Est GFR (Non-Af Amer) POC Glucose (mg/dL) 97 95 Random Glucose Calcium Total Bilirubin AST ALT Alkaline Phosphatase Total Protein Albumin Globulin Albumin/Globulin Ratio Vancomycin Trough 12/23/16 12/23/16 12/23/16 05:00 05:10 05:52 WBC RBC Hgb Hct MCV MCH MCHC RDW Plt Count MPV Neut % (Auto) Lymph % (Auto) [place] % (Auto) Eos % (Auto) Baso % (Auto) Neut # Lymph # [place] # Eos # Baso # pCO2 39 pO2 104 H HCO3 32.7 H ABG pH 7.54 H ABG Total CO2 34.5 H ABG O2 Saturation 99.9 H ABG O2 Content 13.1 L ABG Base Excess 10.0 H ABG Hemoglobin 9.5 L ABG Carboxyhemoglobin 1.7 H POC ABG HHb (Measured) 0.1 ABG Methemoglobin 1.7 ABG O2 Capacity 13.1 L Torres Test Yes A-a O2 Difference 97.0 Hgb O2 Saturation 96.5 Vent Mode Prvc ac Mechanical Rate 18 FiO2 35.0 Tidal Volume 450 PEEP 5 Sodium 147 Potassium 3.5 L Chloride 112 H Carbon Dioxide 28 Anion Gap 11 BUN 32 H Creatinine 0.8 Est GFR ( Amer) > 60 Est GFR (Non-Af Amer) > 60 POC Glucose (mg/dL) 121 H Random Glucose 100 Calcium 8.1 L Total Bilirubin 0.6 AST 29 ALT 22 Alkaline Phosphatase 620 H D Total Protein 6.5 Albumin 2.4 L Globulin 4.1 H Albumin/Globulin Ratio 0.6 L Vancomycin Trough 12/23/16 08:50 WBC RBC Hgb Hct MCV MCH MCHC RDW Plt Count MPV Neut % (Auto) Lymph % (Auto) [place] % (Auto) Eos % (Auto) Baso % (Auto) Neut # Lymph # [place] # Eos # Baso # pCO2 pO2 HCO3 ABG pH ABG Total CO2 ABG O2 Saturation ABG O2 Content ABG Base Excess ABG Hemoglobin ABG Carboxyhemoglobin POC ABG HHb (Measured) ABG Methemoglobin ABG O2 Capacity Torres Test A-a O2 Difference Hgb O2 Saturation Vent Mode Mechanical Rate FiO2 Tidal Volume PEEP Sodium Potassium Chloride Carbon Dioxide Anion Gap BUN Creatinine Est GFR ( Amer) Est GFR (Non-Af Amer) POC Glucose (mg/dL) Random Glucose Calcium Total Bilirubin AST ALT Alkaline Phosphatase Total Protein Albumin Globulin Albumin/Globulin Ratio Vancomycin Trough 13.6 H Fingerstick Blood Sugar Results: 121 Review of Systems - Review of Systems Systems not reviewed;Unavailable: Other (mechanical ventilation dependant via tracheostomy, unresponsive) Critical Care Progress Note - Ventilator Checklist Head of Bed 30 Degrees: Yes Daily Assessment of Readiness to Wean: Yes Daily Spontaneous Breathing Trial: Yes PUD Prophalyxis: Yes DVT Prophylaxis: Yes Oral Care with Chlorhexidine Gluconate {CHG}: Yes - Vent Settings MODE:: PRVC TIDAL VOLUME:: 450 RESP RATE:: 18 FIO2:: 35 PEEP:: 5 - Extremities/Vascular Does the Patient have a Central Venous Catheter?: No Does the Patient need a Central Venous Catheter?: Yes Does the Patient have a No Catheter?: Yes Does the Patient need a No Catheter?: Yes Catheter Insertion Criteria: Stage 3/Stage 4 decubits as per policy - Restraints Justification for Restraints: High risk for self extubation - Prophylaxis GI Prophylaxis GI: PPI - Prophylaxis DVT Prophylaxis DVT: SCDs - Nutrition Nutrition: Nutrition Category Date Time Status NPO Diet [DIET] Diets 12/22/16 Dinner Active Assessment/Plan - Assessment and Plan (Free Text) Assessment: 71 yr old M resident at [facility] with PMHx including HTN, A-fib, dyslipidemia , DM Type 2, diabetic neuropathy, renal insufficiency, PVD, anemia, Dementia, Osteomyelitis R foot bone base on 2015, Avascular Necrosis R Hip, Hx falls , Alcohol abuse admitted to ICU for respiratory failure requiring intubation s/ p pneumonia and septic shock. Patient with fungemia 12/04/16 , UCx + yeast species 12/04/16, Klebsiella pneumoniae 11/21, C. diff + 11/20. POD 1 s/p open tracheostomy placement. PEG tube placement is scheduled for tuesday. Patient minimally responsive today. 1. Acute Hypercapneic Respiratory Failure 2dary to pneumonia -2nd intubation 12/04 (1st intubation 11/20-extubated 11/24) 2. s/p ventricular arrhythmias, ?? 2dary to alkalosis 3. Sacchromyces cerevisiae Fungemia 4. UTI 5. C diff 6. Anemia of Chronic Disease with coagulopathy 7. GI/DVT prophylaxis 1. POD 1 s/p open tracheostomy tube, PRVC vent mode; will attempt CPAP trial. CXR: improving b/l infiltrates, Meropenem x 6 more days (until 12/28), ID on board:Dr. Masters-will follow recommendations, naris Cx + MRSA, sputum Cx 12/20 : light growth of gram positive cocci 2. stable, EKG 12/08/16: sinus rhythm with premature supraventricular complexes with occasional PVC's, prolonged QT, Cardiology-Dr. Barnes 3. repeat BCx 12/20/16 neg x 2; BCx + 12/20/16, ID on board, continue with Voriconazole x 8 more days (until 12/30), as well as vancomycin, vanco trough 13.6 4. UA with large leukocyte esterase, occult bacteria 12/14; no replaced, UCx : no growth 5.+ 11/20; (2 negative C diff 11/24, 11/21), 3rd C diff ordered, ID on board 6. H/H 7.9/24.8 s/p 1 unit pRBC's transfused 12/14/16, FOBT + 11/21/16 7. Protonix 40mg IV QD/ SCD's; pt will need central line - Date & Time Date: 12/23/16 Time: 10:20 <Paez,Sammy Lina - Last Filed: 12/23/16 19:43> Critical Care Progress Note - Nutrition Nutrition: Nutrition Category Date Time Status NPO Diet [DIET] Diets 12/22/16 Dinner Active Assessment/Plan - Assessment and Plan (Free Text) Plan: Attestation: Patient seen and examined at the bedside with Resident Dr. Salas Low; and I agree with her outline of plans and management as documented below and discussed on AM rounds today, December 23, 2016.
--- NOTE | 2016-12-23 13:21 | CP.PCM.PN ---
Subjective - Subjective Subjective: open eyes to verbal stimuli , not following commands, had Tracheostomy , on vent PRVC AC , FIO2 35%. Objective - Vital Signs/Intake and Output Vital Signs (last 24 hours): Temp Pulse Resp BP Pulse Ox 99.3 F 100 H 18 132/71 100 12/23/16 12:00 12/23/16 12:00 12/23/16 12:00 12/23/16 12:00 12/23/16 12:00 Intake and Output: 12/23/16 12/23/16 06:59 18:59 Intake Total 1150 350 Output Total 750 Balance 400 350 - Medications Medications: Current Medications Acetaminophen (Tylenol 650mg/20.3ml Solution Ud) 650 mg PO Q6 PRN PRN Reason: fever Last Admin: 12/21/16 12:10 Dose: 650 mg Acetaminophen (Tylenol 650 Mg Supp) 650 mg [place] Q6 PRN PRN Reason: Fever >100.4 F Collagenase (Santyl) 1 applic TOP DAILY [facility] Last Admin: 12/23/16 08:44 Dose: 1 applic Furosemide (Lasix) 40 mg PO DAILY [facility] Last Admin: 12/22/16 08:24 Dose: Not Given Furosemide (Lasix) 40 mg IVP DAILY [facility] Last Admin: 12/23/16 08:44 Dose: 40 mg Voriconazole 300 mg/ Sodium (Chloride) 250 mls @ 125 mls/hr IVPB Q12 [facility] Last Admin: 12/22/16 20:05 Dose: 125 mls/hr Meropenem 1 gm/ Sodium (Chloride) 100 mls @ 100 mls/hr IVPB Q12 [facility] Last Admin: 12/23/16 08:43 Dose: 100 mls/hr Vancomycin HCl 750 mg/ Sodium (Chloride) 250 mls @ 166.667 mls/hr IVPB DAILY [facility] Last Admin: 12/23/16 08:42 Dose: 166.667 mls/hr Dextrose/Lactated Ringer's (Dextrose 5%/Lactated Ringer's) 1,000 mls @ 80 mls/ hr IV .[id number] [facility] Stop: 12/23/16 17:54 Last Admin: 12/22/16 18:36 Dose: 80 mls/hr Potassium Chloride/Dextrose/Sod Cl (D5-Ns1l+40meq Kcl) 1,000 mls @ 80 mls/hr IV .[id number] [facility] Stop: 12/24/16 07:44 Last Admin: 12/23/16 09:55 Dose: 80 mls/hr Cefazolin Sodium 1 gm/ Sodium (Chloride) 100 mls @ 100 mls/hr IVPB Q12 [facility] Insulin Human Lispro (Humalog) 0 units SC Q6 [facility] PRN Reason: Protocol Last Admin: 12/23/16 06:30 Dose: Not Given Nystatin (Nystop Topical Powder) 1 applic TOP TID [facility] Last Admin: 12/23/16 08:44 Dose: 1 pow Pantoprazole Sodium (Protonix Inj) 40 mg IVP DAILY [facility] Last Admin: 12/23/16 08:43 Dose: 40 mg - Labs Labs: 12/23/16 05:00 12/23/16 05:00 PT 13.4 Seconds (9.8-13.1) H 12/22/16 04:30 INR 1.3 (0.9-1.2) H 12/22/16 04:30 APTT 32.9 Seconds (25.6-37.1) 12/22/16 04:30 - Constitutional Appears: Chronically Ill - Head Exam Head Exam: NORMAL INSPECTION - Eye Exam Eye Exam: PERRL - ENT Exam ENT Exam: Normal Exam - Neck Exam Additional comments: Tracheostomy - Respiratory Exam Respiratory Exam: Decreased Breath Sounds (at bases) - Cardiovascular Exam Cardiovascular Exam: REGULAR RHYTHM - GI/Abdominal Exam GI & Abdominal Exam: Soft, Normal Bowel Sounds - Extremities Exam Extremities Exam: Normal Inspection - Back Exam Back Exam: NORMAL INSPECTION - Neurological Exam Additional comments: open eyes to verbal stimuli , not following commands , generalized weakness - Skin Skin Exam: Warm Assessment and Plan (1) Acute hypercapnic respiratory failure Status: Acute (2) Klebsiella pneumonia Status: Acute (3) Dehydration Status: Acute (4) Septic shock Status: Resolved (5) GEORGINA (acute kidney injury) Status: Acute (6) Type 2 diabetes mellitus with hyperglycemia Status: Chronic (7) HTN (hypertension) Status: Chronic (8) C. difficile colitis Status: Acute (9) Alkaline phosphatase elevation Status: Acute (10) Fungemia Status: Acute - Assessment and Plan (Free Text) Plan: Continue Merren , Vanco , Voriconazole , attempt of weaning , for PEG am ICU Time: 39 min.
--- NOTE | 2016-12-23 17:48 | CP.PCM.PN ---
Subjective - Date & Time of Evaluation Date of Evaluation: 12/23/16 Time of Evaluation: 17:45 - Subjective Subjective: no overnight events Objective - Vital Signs/Intake and Output Vital Signs (last 24 hours): Temp Pulse Resp BP Pulse Ox 98.8 F 102 H 10 L 126/63 100 12/23/16 16:00 12/23/16 16:00 12/23/16 16:00 12/23/16 16:00 12/23/16 16:00 Intake and Output: 12/23/16 12/23/16 06:59 18:59 Intake Total 1150 600 Output Total 750 Balance 400 600 - Medications Medications: Current Medications Acetaminophen (Tylenol 650mg/20.3ml Solution Ud) 650 mg PO Q6 PRN PRN Reason: fever Last Admin: 12/21/16 12:10 Dose: 650 mg Acetaminophen (Tylenol 650 Mg Supp) 650 mg [place] Q6 PRN PRN Reason: Fever >100.4 F Collagenase (Santyl) 1 applic TOP DAILY [facility] Last Admin: 12/23/16 08:44 Dose: 1 applic Furosemide (Lasix) 40 mg PO DAILY [facility] Last Admin: 12/22/16 08:24 Dose: Not Given Furosemide (Lasix) 40 mg IVP DAILY [facility] Last Admin: 12/23/16 08:44 Dose: 40 mg Voriconazole 300 mg/ Sodium (Chloride) 250 mls @ 125 mls/hr IVPB Q12 [facility] Last Admin: 12/23/16 14:48 Dose: 125 mls/hr Meropenem 1 gm/ Sodium (Chloride) 100 mls @ 100 mls/hr IVPB Q12 [facility] Last Admin: 12/23/16 08:43 Dose: 100 mls/hr Vancomycin HCl 750 mg/ Sodium (Chloride) 250 mls @ 166.667 mls/hr IVPB DAILY [facility] Last Admin: 12/23/16 08:42 Dose: 166.667 mls/hr Dextrose/Lactated Ringer's (Dextrose 5%/Lactated Ringer's) 1,000 mls @ 80 mls/ hr IV .[id number] [facility] Stop: 12/23/16 17:54 Last Admin: 12/22/16 18:36 Dose: 80 mls/hr Potassium Chloride/Dextrose/Sod Cl (D5-Ns1l+40meq Kcl) 1,000 mls @ 80 mls/hr IV .[id number] [facility] Stop: 12/24/16 07:44 Last Admin: 12/23/16 09:55 Dose: 80 mls/hr Cefazolin Sodium 1 gm/ Sodium (Chloride) 100 mls @ 100 mls/hr IVPB Q12 [facility] Insulin Human Lispro (Humalog) 0 units SC Q6 [facility] PRN Reason: Protocol Last Admin: 12/23/16 17:12 Dose: Not Given Nystatin (Nystop Topical Powder) 1 applic TOP TID [facility] Last Admin: 12/23/16 17:13 Dose: 1 pow Pantoprazole Sodium (Protonix Inj) 40 mg IVP DAILY [facility] Last Admin: 12/23/16 08:43 Dose: 40 mg - Labs Labs: 12/23/16 05:00 12/23/16 05:00 PT 13.4 Seconds (9.8-13.1) H 12/22/16 04:30 INR 1.3 (0.9-1.2) H 12/22/16 04:30 APTT 32.9 Seconds (25.6-37.1) 12/22/16 04:30 - Cardiovascular Exam Cardiovascular Exam: REGULAR RHYTHM - GI/Abdominal Exam GI & Abdominal Exam: Soft, Normal Bowel Sounds Assessment and Plan - Assessment and Plan (Free Text) Assessment: 71 yo male with dysphagia for peg in am d/w son Ac
[2016-12-24 05:35] LABS: HEMATOCRIT 23.8 % (35.0-51.0); MEAN CELL VOLUME 93.8 fl (80.0-94.0); MEAN CORPUSCULAR HEMOGLOBIN 29.6 pg (27.0-31.0); MEAN CORPUSCULAR HGB CONC 31.5 g/dL (33.0-37.0); RED CELL DISTRIBUTION WIDTH 16.8 % (11.5-14.5); WHITE BLOOD COUNT 7.3 K/uL (4.8-10.8)
[2016-12-24 05:47] LABS: ALB/GLOB RATIO 0.6 (1.0-2.1); ALKALINE PHOSPHATASE 532 U/L (38-126); ALT/SGPT 16 U/L (21-72); AST/SGOT 34 U/L (17-59); BILIRUBIN,TOTAL 0.6 mg/dl (0.2-1.3); BLOOD UREA NITROGEN 28 mg/dl (9-20); CARBON DIOXIDE 29 mmol/L (22-30); CHLORIDE 115 mmol/L (98-107); GFR AFRICAN-AMERICAN > 60; GLUCOSE,RANDOM 99 mg/dL (75-110); POTASSIUM 3.8 MMOL/L (3.6-5.0); SODIUM 150 mmol/l (132-148); TOTAL PROTEIN 6.5 G/DL (6.3-8.2)
[2016-12-24 05:49] LABS: PARTIAL THROMBOPLASTIN TIME 32.9 Seconds (25.6-37.1)
[2016-12-24 06:17] LABS: ABG ALLEN TEST YES; ABG MECHANICAL RATE 10; ARTERIAL BLOOD GAS HCO3 29.7 mmol/L (21-28); ARTERIAL BLOOD GAS MODE SIMV; ARTERIAL BLOOD GAS O2 CONTENT 19.9 ML/dL (15-23); ARTERIAL BLOOD GAS PH 7.47 (7.35-7.45); ARTERIAL BLOOD GAS PO2 123 mm/Hg (80-100); ARTERIAL BLOOD HGB O2 SAT 95.7 % (95.0-98.0); ATERIAL BLOOD GAS PEEP 5; CARBOXYHEMOGLOBIN 1.7 % (0.5-1.5); HHB 0.7 % (0.0-5.0); METHEMOGLOBIN 1.9 % (0.0-3.0)
--- NOTE | 2016-12-24 08:37 | CP.PCM.PN ---
Subjective - Date & Time of Evaluation Date of Evaluation: 12/24/16 Time of Evaluation: 08:34 - Subjective Subjective: No new event reported ICU note noted Serum sodium keep going up slowly the latest 150 Serum chloride keep going up the latest one 115 Serum creatinine continue to be normal 0.8 Above suggest of dehydration patient need free water intake to be given through the NG tube at least 250 mL every 6 hours . The serum sodium started to come down . The rest of the management as noted and so with the diagnosis and the problem. Objective - Vital Signs/Intake and Output Vital Signs (last 24 hours): Temp Pulse Resp BP Pulse Ox 98.9 F 92 H 19 138/66 10 L 12/24/16 04:00 12/24/16 06:00 12/24/16 06:00 12/24/16 06:00 12/24/16 06:00 Intake and Output: 12/24/16 12/24/16 06:59 18:59 Intake Total 1070 Output Total 600 Balance 470 - Medications Medications: Current Medications Acetaminophen (Tylenol 650 Mg Supp) 650 mg VT Q6 PRN PRN Reason: Fever >100.4 F Collagenase (Santyl) 1 applic TOP DAILY [facility] Furosemide (Lasix) 40 mg IVP DAILY [facility] Voriconazole 300 mg/ Sodium (Chloride) 250 mls @ 125 mls/hr IVPB Q12 [facility] Last Admin: 12/23/16 22:03 Dose: 125 mls/hr Cefazolin Sodium 1 gm/ Sodium (Chloride) 100 mls @ 100 mls/hr IVPB Q12 [facility] Meropenem 1 gm/ Sodium (Chloride) 100 mls @ 100 mls/hr IVPB Q12 [facility] Last Admin: 12/23/16 21:54 Dose: 100 mls/hr Vancomycin HCl 750 mg/ Sodium (Chloride) 250 mls @ 166.667 mls/hr IVPB DAILY [facility] Insulin Human Lispro (Humalog) 0 units SC Q6 [facility] PRN Reason: Protocol Last Admin: 12/23/16 22:05 Dose: Not Given Nystatin (Nystop Topical Powder) 1 applic TOP TID [facility] Pantoprazole Sodium (Protonix Inj) 40 mg IVP DAILY [facility] - Labs Labs: 12/24/16 04:30 12/24/16 04:00 PT 14.8 Seconds (9.8-13.1) H 12/24/16 04:30 INR 1.4 (0.9-1.2) H 12/24/16 04:30 APTT 32.9 Seconds (25.6-37.1) 12/24/16 04:30 Assessment and Plan (1) GEORGINA (acute kidney injury) Status: Acute (2) Acute hypercapnic respiratory failure Status: Acute (3) Leukocytosis Status: Acute (4) Pneumonia Status: Acute
[2016-12-24] MEDS ORDERED: ceFAZolin 1 GM in Sodium Chloride 0.9% 100 ML IVPB SCH ×2 (09:00)
--- NOTE | 2016-12-24 09:06 | OP ---
PROCEDURE DATE: 12/19/2016 PREOPERATIVE DIAGNOSIS: Respiratory failure. POSTOPERATIVE DIAGNOSIS: Respiratory failure. PROCEDURE: Tracheostomy, division of thyroid gland. SURGEON: Dr. Jonas Julian. SALES AND CUSTOMER RELATIONS REP: Dr. Bower and Dr Nugent. TYPE OF ANESTHESIA: General. ANESTHESIA ADMINISTERED BY: Dr. Whitten. DESCRIPTION OF PROCEDURE: The patient was taken to the operating room. After obtaining a time-out, the neck was prepped and draped in the usual manner. A vertical incision was made over the anterior aspect of the neck approximately 1 cm above the sternal notch and superiorly about 3-4 cm after adequate infiltration with 1% Lidocaine. This was carried down through subcu tissue to platysma using hemocautery obtaining hemostasis using the same. Careful dissection in a north-south fashion was done, at the same retracting with Zenker retractors. Upon reaching the thyroid gland, the isthmus was visualized anteriorly crossing the trachea. Multiple fine sutures of silk were used to divide the isthmus which was done using hemostasis obtaining hemostasis both with hemocautery and fine sutures of silk. The trachea was visualized, grasped with a tracheal hook. At this point, a cruciate incision was made in the trachea excising part of the ring and making a tracheostomy approximately 1 cm in diameter. An 8-[place]ian tracheostomy tube was inserted without any difficulty after slowly pulling out the endotracheal tube under direct visualization. Once this was inside, the balloon was insufflated. Making sure that there was no air leak then the endotracheal tube was removed. Once this was done, the patient was adequately ventilated. The ties were tied around the neck of the patient loosely. A Xeroform gauze was placed. POSTOPERATIVE CONDITION: The patient tolerated the procedure very well and was transferred to the recovery room in good general status. Jonas Julian MD
[2016-12-24] MEDS ORDERED: Etomidate 20 mg/10ml Inj IV ONE (09:11)
[2016-12-24] MEDS ORDERED: Sodium Chloride 0.9% 500 ML IV ONE (09:15)
[2016-12-24] MEDS: Meropenem 1 GM in Sodium Chloride 0.9% 100 ML IVPB SCH ×2 (10:11→20:50)
[2016-12-24] MEDS: Santyl Collagenase OINTMENT TOP SCH (10:12)
[2016-12-24] MEDS: Insulin Lispro (humaLOG) 100 Units/ml Inj SC SCH ×3 (11:00→22:26)
--- NOTE | 2016-12-24 11:31 | CP.PCM.PN ---
Subjective - Date & Time of Evaluation Date of Evaluation: 12/24/16 Time of Evaluation: 11:31 - Subjective Subjective: ID note- Pt. seen and examined today in ICU. S/P peg tube today. Objective - Vital Signs/Intake and Output Vital Signs (last 24 hours): Temp Pulse Resp BP Pulse Ox 99.2 F 99 H 11 L 125/79 100 12/24/16 08:00 12/24/16 10:00 12/24/16 10:00 12/24/16 10:10 12/24/16 10:00 Intake and Output: 12/24/16 12/24/16 06:59 18:59 Intake Total 1070 50 Output Total 600 Balance 470 50 - Medications Medications: Current Medications Acetaminophen (Tylenol 650 Mg Supp) 650 mg TN Q6 PRN PRN Reason: Fever >100.4 F Collagenase (Santyl) 1 applic TOP DAILY [facility] Last Admin: 12/24/16 10:12 Dose: 1 applic Furosemide (Lasix) 40 mg IVP DAILY [facility] Last Admin: 12/24/16 10:10 Dose: 40 mg Voriconazole 300 mg/ Sodium (Chloride) 250 mls @ 125 mls/hr IVPB Q12 [facility] Last Admin: 12/23/16 22:03 Dose: 125 mls/hr Cefazolin Sodium 1 gm/ Sodium (Chloride) 100 mls @ 100 mls/hr IVPB Q12 [facility] Last Admin: 12/24/16 10:01 Dose: 100 mls/hr Meropenem 1 gm/ Sodium (Chloride) 100 mls @ 100 mls/hr IVPB Q12 [facility] Last Admin: 12/24/16 10:11 Dose: 100 mls/hr Vancomycin HCl 750 mg/ Sodium (Chloride) 250 mls @ 166.667 mls/hr IVPB DAILY [facility] Last Admin: 12/24/16 10:12 Dose: 166.667 mls/hr Insulin Human Lispro (Humalog) 0 units SC Q6 [facility] PRN Reason: Protocol Last Admin: 12/23/16 22:05 Dose: Not Given Nystatin (Nystop Topical Powder) 1 applic TOP TID [facility] Last Admin: 12/24/16 10:11 Dose: 1 applic Pantoprazole Sodium (Protonix Inj) 40 mg IVP DAILY [facility] Last Admin: 12/24/16 10:12 Dose: 40 mg - Labs Labs: - Additional Findings Additional findings: - Constitutional Appears: Chronically Ill - ENT Exam Additional comments: ET via trache - Neck Exam Additional comments: supple - Respiratory Exam Additional comments: intubated and on the vent - Cardiovascular Exam Cardiovascular Exam: RRR, +S1, +S2 - GI/Abdominal Exam GI & Abdominal Exam: Soft, Normal Bowel Sounds Additional comments: ND, NT has new peg tube in place - Extremities Exam Additional comments: dry b/l heel ulcers, no discharge - Neurological Exam Additional comments: on the vent , does not follow commands Laboratory Results - last 72 hr 12/21/16 12/22/16 12/22/16 21:08 04:30 04:30 WBC 8.1 RBC 2.87 L Hgb 8.6 L Hct 27.1 L MCV 94.6 H D MCH 29.9 MCHC 31.6 L RDW 17.1 H Plt Count 207 MPV 10.9 Neut % (Auto) 55.6 Lymph % (Auto) 29.9 Laurel % (Auto) 9.0 Eos % (Auto) 3.0 Baso % (Auto) 2.5 H Neut # 4.5 Lymph # 2.4 Laurel # 0.7 Eos # 0.2 Baso # 0.2 PT 13.4 H INR 1.3 H APTT 32.9 pCO2 pO2 HCO3 ABG pH ABG Total CO2 ABG O2 Saturation ABG O2 Content ABG Base Excess ABG Hemoglobin ABG Carboxyhemoglobin POC ABG HHb (Measured) ABG Methemoglobin ABG O2 Capacity Torres Test A-a O2 Difference Hgb O2 Saturation Vent Mode Mechanical Rate FiO2 Tidal Volume PEEP Pressure Support Sodium Potassium Chloride Carbon Dioxide Anion Gap BUN Creatinine Est GFR ( Amer) Est GFR (Non-Af Amer) POC Glucose (mg/dL) 131 H Random Glucose Calcium Total Bilirubin AST ALT Alkaline Phosphatase Total Protein Albumin Globulin Albumin/Globulin Ratio Vancomycin Trough Blood Type Antibody Screen Crossmatch BBK History Checked 12/22/16 12/22/16 12/22/16 04:30 04:46 09:43 WBC RBC Hgb Hct MCV MCH MCHC RDW Plt Count MPV Neut % (Auto) Lymph % (Auto) Laurel % (Auto) Eos % (Auto) Baso % (Auto) Neut # Lymph # Laurel # Eos # Baso # PT INR APTT pCO2 pO2 HCO3 ABG pH ABG Total CO2 ABG O2 Saturation ABG O2 Content ABG Base Excess ABG Hemoglobin ABG Carboxyhemoglobin POC ABG HHb (Measured) ABG Methemoglobin ABG O2 Capacity Torres Test A-a O2 Difference Hgb O2 Saturation Vent Mode Mechanical Rate FiO2 Tidal Volume PEEP Pressure Support Sodium 147 Potassium 4.2 Chloride 110 H Carbon Dioxide 29 Anion Gap 12 BUN 38 H Creatinine 0.8 Est GFR ( Amer) > 60 Est GFR (Non-Af Amer) > 60 POC Glucose (mg/dL) 116 H 103 Random Glucose 94 Calcium 8.0 L Total Bilirubin 0.5 AST 43 ALT 24 Alkaline Phosphatase 815 H D Total Protein 6.6 Albumin 2.4 L Globulin 4.2 H Albumin/Globulin Ratio 0.6 L Vancomycin Trough Blood Type Antibody Screen Crossmatch BBK History Checked 12/22/16 12/22/16 12/23/16 15:52 22:27 05:00 WBC 7.6 RBC 2.65 L Hgb 7.9 L Hct 24.8 L MCV 93.6 MCH 30.0 MCHC 32.1 L RDW 16.7 H Plt Count 201 MPV 10.9 Neut % (Auto) 53.3 Lymph % (Auto) 34.3 Laurel % (Auto) 8.5 Eos % (Auto) 1.8 Baso % (Auto) 2.1 H Neut # 4.0 Lymph # 2.6 Laurel # 0.6 Eos # 0.1 Baso # 0.2 PT INR APTT pCO2 pO2 HCO3 ABG pH ABG Total CO2 ABG O2 Saturation ABG O2 Content ABG Base Excess ABG Hemoglobin ABG Carboxyhemoglobin POC ABG HHb (Measured) ABG Methemoglobin ABG O2 Capacity Torres Test A-a O2 Difference Hgb O2 Saturation Vent Mode Mechanical Rate FiO2 Tidal Volume PEEP Pressure Support Sodium Potassium Chloride Carbon Dioxide Anion Gap BUN Creatinine Est GFR ( Amer) Est GFR (Non-Af Amer) POC Glucose (mg/dL) 97 95 Random Glucose Calcium Total Bilirubin AST ALT Alkaline Phosphatase Total Protein Albumin Globulin Albumin/Globulin Ratio Vancomycin Trough Blood Type Antibody Screen Crossmatch BBK History Checked 12/23/16 12/23/16 12/23/16 05:00 05:10 05:52 WBC RBC Hgb Hct MCV MCH MCHC RDW Plt Count MPV Neut % (Auto) Lymph % (Auto) Laurel % (Auto) Eos % (Auto) Baso % (Auto) Neut # Lymph # Laurel # Eos # Baso # PT INR APTT pCO2 39 pO2 104 H HCO3 32.7 H ABG pH 7.54 H ABG Total CO2 34.5 H ABG O2 Saturation 99.9 H ABG O2 Content 13.1 L ABG Base Excess 10.0 H ABG Hemoglobin 9.5 L ABG Carboxyhemoglobin 1.7 H POC ABG HHb (Measured) 0.1 ABG Methemoglobin 1.7 ABG O2 Capacity 13.1 L Torres Test Yes A-a O2 Difference 97.0 Hgb O2 Saturation 96.5 Vent Mode Prvc ac Mechanical Rate 18 FiO2 35.0 Tidal Volume 450 PEEP 5 Pressure Support Sodium 147 Potassium 3.5 L Chloride 112 H Carbon Dioxide 28 Anion Gap 11 BUN 32 H Creatinine 0.8 Est GFR ( Amer) > 60 Est GFR (Non-Af Amer) > 60 POC Glucose (mg/dL) 121 H Random Glucose 100 Calcium 8.1 L Total Bilirubin 0.6 AST 29 ALT 22 Alkaline Phosphatase 620 H D Total Protein 6.5 Albumin 2.4 L Globulin 4.1 H Albumin/Globulin Ratio 0.6 L Vancomycin Trough Blood Type Antibody Screen Crossmatch BBK History Checked 12/23/16 12/23/16 12/23/16 08:50 11:26 16:57 WBC RBC Hgb Hct MCV MCH MCHC RDW Plt Count MPV Neut % (Auto) Lymph % (Auto) Laurel % (Auto) Eos % (Auto) Baso % (Auto) Neut # Lymph # Laurel # Eos # Baso # PT INR APTT pCO2 pO2 HCO3 ABG pH ABG Total CO2 ABG O2 Saturation ABG O2 Content ABG Base Excess ABG Hemoglobin ABG Carboxyhemoglobin POC ABG HHb (Measured) ABG Methemoglobin ABG O2 Capacity Torres Test A-a O2 Difference Hgb O2 Saturation Vent Mode Mechanical Rate FiO2 Tidal Volume PEEP Pressure Support Sodium Potassium Chloride Carbon Dioxide Anion Gap BUN Creatinine Est GFR ( Amer) Est GFR (Non-Af Amer) POC Glucose (mg/dL) 136 H 123 H Random Glucose Calcium Total Bilirubin AST ALT Alkaline Phosphatase Total Protein Albumin Globulin Albumin/Globulin Ratio Vancomycin Trough 13.6 H Blood Type Antibody Screen Crossmatch BBK History Checked 12/23/16 12/24/16 12/24/16 22:05 04:00 04:00 WBC RBC Hgb Hct MCV MCH MCHC RDW Plt Count MPV Neut % (Auto) Lymph % (Auto) Laurel % (Auto) Eos % (Auto) Baso % (Auto) Neut # Lymph # Laurel # Eos # Baso # PT INR APTT pCO2 42 pO2 123 H HCO3 29.7 H ABG pH 7.47 H ABG Total CO2 31.9 H ABG O2 Saturation 99.3 H ABG O2 Content 19.9 ABG Base Excess 6.2 H ABG Hemoglobin 14.7 ABG Carboxyhemoglobin 1.7 H POC ABG HHb (Measured) 0.7 ABG Methemoglobin 1.9 ABG O2 Capacity 20.0 Torres Test Yes A-a O2 Difference 74.0 Hgb O2 Saturation 95.7 Vent Mode Simv Mechanical Rate 10 FiO2 35.0 Tidal Volume 450 PEEP 5 Pressure Support 15 Sodium 150 H Potassium 3.8 Chloride 115 H Carbon Dioxide 29 Anion Gap 10 BUN 28 H Creatinine 0.8 Est GFR ( Amer) > 60 Est GFR (Non-Af Amer) > 60 POC Glucose (mg/dL) 121 H Random Glucose 99 Calcium 8.0 L Total Bilirubin 0.6 AST 34 ALT 16 L D Alkaline Phosphatase 532 H Total Protein 6.5 Albumin 2.4 L Globulin 4.1 H Albumin/Globulin Ratio 0.6 L Vancomycin Trough Blood Type Antibody Screen Crossmatch BBK History Checked 12/24/16 12/24/16 12/24/16 04:30 04:30 05:14 WBC 7.3 RBC 2.54 L Hgb 7.5 L Hct 23.8 L MCV 93.8 MCH 29.6 MCHC 31.5 L RDW 16.8 H Plt Count 207 MPV Neut % (Auto) Lymph % (Auto) Laurel % (Auto) Eos % (Auto) Baso % (Auto) Neut # Lymph # Laurel # Eos # Baso # PT 14.8 H INR 1.4 H APTT 32.9 pCO2 pO2 HCO3 ABG pH ABG Total CO2 ABG O2 Saturation ABG O2 Content ABG Base Excess ABG Hemoglobin ABG Carboxyhemoglobin POC ABG HHb (Measured) ABG Methemoglobin ABG O2 Capacity Torres Test A-a O2 Difference Hgb O2 Saturation Vent Mode Mechanical Rate FiO2 Tidal Volume PEEP Pressure Support Sodium Potassium Chloride Carbon Dioxide Anion Gap BUN Creatinine Est GFR ( Amer) Est GFR (Non-Af Amer) POC Glucose (mg/dL) 105 Random Glucose Calcium Total Bilirubin AST ALT Alkaline Phosphatase Total Protein Albumin Globulin Albumin/Globulin Ratio Vancomycin Trough Blood Type Antibody Screen Crossmatch BBK History Checked 12/24/16 12/24/16 12/24/16 11:24 12:10 16:56 WBC RBC Hgb Hct MCV MCH MCHC RDW Plt Count MPV Neut % (Auto) Lymph % (Auto) Laurel % (Auto) Eos % (Auto) Baso % (Auto) Neut # Lymph # Laurel # Eos # Baso # PT INR APTT pCO2 pO2 HCO3 ABG pH ABG Total CO2 ABG O2 Saturation ABG O2 Content ABG Base Excess ABG Hemoglobin ABG Carboxyhemoglobin POC ABG HHb (Measured) ABG Methemoglobin ABG O2 Capacity Torres Test A-a O2 Difference Hgb O2 Saturation Vent Mode Mechanical Rate FiO2 Tidal Volume PEEP Pressure Support Sodium Potassium Chloride Carbon Dioxide Anion Gap BUN Creatinine Est GFR ( Amer) Est GFR (Non-Af Amer) POC Glucose (mg/dL) 86 96 Random Glucose Calcium Total Bilirubin AST ALT Alkaline Phosphatase Total Protein Albumin Globulin Albumin/Globulin Ratio Vancomycin Trough Blood Type A POSITIVE Antibody Screen Negative Crossmatch See Detail BBK History Checked Patient has bt Microbiology 12/20/16 17:05 Blood-Venous Blood Culture - Preliminary NO GROWTH AFTER 3 DAYS 12/20/16 17:00 Blood-Venous Blood Culture - Preliminary NO GROWTH AFTER 3 DAYS 12/20/16 01:35 Trachasp Gram Stain - Final 12/20/16 01:35 Trachasp Sputum Culture - Final Enterococcus Faecalis 12/16/16 16:40 Blood-Venous Blood Culture - Final NO GROWTH AFTER 5 DAYS 12/16/16 16:40 Blood-Venous Gram Stain - Final TEST NOT PERFORMED 12/13/16 16:45 Blood-Venous Blood Culture - Final NO GROWTH AFTER 5 DAYS 12/13/16 16:45 Blood-Venous Gram Stain - Final TEST NOT PERFORMED 12/13/16 16:45 Blood-Venous Blood Culture - Final NO GROWTH AFTER 5 DAYS 12/13/16 16:45 Blood-Venous Gram Stain - Final TEST NOT PERFORMED 12/04/16 17:00 Trachasp Gram Stain - Final 12/04/16 17:00 Trachasp Sputum Culture - Final NORMAL ORAL ROSEMARY 12/14/16 17:45 Urine,Triplett Urine Culture - Final No Growth (<1,000 CFU/ML) 12/10/16 18:30 Blood-Venous Blood Culture - Final NO GROWTH AFTER 5 DAYS 12/10/16 18:30 Blood-Venous Gram Stain - Final TEST NOT PERFORMED 12/10/16 18:30 Blood-Venous Blood Culture - Final NO GROWTH AFTER 5 DAYS 12/10/16 18:30 Blood-Venous Gram Stain - Final TEST NOT PERFORMED 12/06/16 17:30 Blood-Venous Blood Culture - Final NO GROWTH AFTER 5 DAYS 12/06/16 17:30 Blood-Venous Gram Stain - Final TEST NOT PERFORMED 12/06/16 17:50 Blood-Venous Blood Culture - Final NO GROWTH AFTER 5 DAYS 12/06/16 17:50 Blood-Venous Gram Stain - Final TEST NOT PERFORMED 12/04/16 00:10 Blood-Venous Blood Culture - Final Saccharomyces Cerevisiae 12/04/16 00:10 Blood-Venous Gram Stain - Final 12/04/16 00:10 Blood-Venous S.aureus & Coag-Neg Staph PNA FISH - Final 12/04/16 00:10 Blood-Venous Blood Culture - Final Saccharomyces Cerevisiae 12/04/16 00:10 Blood-Venous Gram Stain - Final 12/04/16 14:00 Blood S.aureus & Coag-Neg Staph PNA FISH - Final 12/04/16 14:00 Blood Blood Culture - Final Saccharomyces Cerevisiae 12/04/16 14:00 Blood Gram Stain - Final 12/04/16 18:00 Blood-Thru Central Line S.aureus & Coag-Neg Staph PNA FISH - Final 12/04/16 18:00 Blood-Thru Central Line Blood Culture - Final Saccharomyces Cerevisiae 12/04/16 18:00 Blood-Thru Central Line Gram Stain - Final 12/04/16 16:50 Urine,Triplett Urine Culture - Final Yeast Species 12/04/16 18:00 Naris MRSA Culture (Admit) - Final MRSA DETECTED 12/04/16 02:05 Urine,Triplett Urine Culture - Final Yeast Species 11/26/16 20:01 Nose MRSA Culture (Admit) - Final MRSA NOT DETECTED 11/20/16 10:00 Blood-Venous Blood Culture - Final NO GROWTH AFTER 5 DAYS 11/20/16 10:00 Blood-Venous Gram Stain - Final TEST NOT PERFORMED 11/21/16 10:00 Trachasp Gram Stain - Final 11/21/16 10:00 Trachasp Sputum Culture - Final Klebsiella Pneumoniae Ssp Pneu 11/20/16 15:00 Nose MRSA Culture (Admit) - Final MRSA NOT DETECTED 11/20/16 01:57 Urine,Triplett Urine Culture - Final No Growth (<1,000 CFU/ML) Accession No. : [id number] Patient Name / ID : GRACE ANTON / [id number] Exam Date : 12/24/2016 04:44:19 ( Approved ) Study Comment : Sex / Age : M / 71Y Creator : Manfred Strickland MD Dictator : Manfred Strickland MD Glass Polisher : Hole Filler : Manfred Strickland MD Approver2 : Report Date : 12/24/2016 12:34:42 My Comment : PROCEDURE: CHEST RADIOGRAPH, 1 VIEW HISTORY: mechanical ventilator dependant COMPARISON: Comparison made with prior chest radiograph 12/22/2016 FINDINGS: In situ tracheostomy tube in good position. LUNGS: Persistent right lower lobe opacity may represent some combination of atelectasis/ infiltrate and effusion. There also appears to be mild pulmonary vascular congestion. Suspect minor left basilar atelectasis and possible small left effusion. PLEURA: As above. No apparent pneumothorax CARDIOVASCULAR: Normal. OSSEOUS STRUCTURES: No significant abnormalities. VISUALIZED UPPER ABDOMEN: Normal. OTHER FINDINGS: None. IMPRESSION: Tracheostomy tube remains in good position. Persistent right lower lobe opacity consistent with some combination of atelectasis/infiltrate and effusion. Suspect minor left basilar atelectasis and small left effusion. Mild pulmonary vascular congestion. 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 repeat stool c.diff- negative tox and AG repeat blood cx from 12/06/2016- negative x 2 repeat blood cx from 12/10/2016- negative x 2 repeat blood cx frpm 12/13/2016-neg x 2 repeat blood cx from 12/16-negative repeat blood cx from 12/20- neg x 2 CT abd/pelvis- as per report no perf, no free air and normal bowel. b/l pleural effusion. cxr report noted pneumonia/resp distress s/p trache fungemia is on antifungal medication, repeat blood cx are all negative x 8 c.diff - resolved Plan- continue with meropenem for HAP , day #17 for HAP. continue with meropenem for 4 more days pending clinical response. completed 2 days of Micafungin for fungemia but once yeast was ID as sacharomyces was switched to voriconazole. day #15. TTE- no vegetations as per report. continue with voriconazole for 6 more days. continue with IV vancomycin as well, day #5.( for HAP and will treat the e.fecalis in trach asp cx) . keep trough <15. all above d/w ICU team. ICU time 50 minutes.
--- NOTE | 2016-12-24 12:40 | RAD ---
PROCEDURE: CHEST RADIOGRAPH, 1 VIEW HISTORY: mechanical ventilator dependant COMPARISON: Comparison made with prior chest radiograph 12/22/2016 FINDINGS: In situ tracheostomy tube in good position. LUNGS: Persistent right lower lobe opacity may represent some combination of atelectasis/ infiltrate and effusion. There also appears to be mild pulmonary vascular congestion. Suspect minor left basilar atelectasis and possible small left effusion. PLEURA: As above. No apparent pneumothorax CARDIOVASCULAR: Normal. OSSEOUS STRUCTURES: No significant abnormalities. VISUALIZED UPPER ABDOMEN: Normal. OTHER FINDINGS: None. IMPRESSION: Tracheostomy tube remains in good position. Persistent right lower lobe opacity consistent with some combination of atelectasis/infiltrate and effusion. Suspect minor left basilar atelectasis and small left effusion. Mild pulmonary vascular congestion.
--- NOTE | 2016-12-24 13:48 | CP.CCUPN ---
<Lilian Low - Last Filed: 12/24/16 13:37> CCU Subjective - Physician Review Subjective (Free Text): 12/24/16 13:37 POD 0 s/p PEG tube placement; POD 2 s/p open tracheostomy Patient seen and examined at bedside. Remains dependant on mechanical ventilation, tolerating daily wean protocol. 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 Hgb 7.5 this AM, 1 unit leukocyte reduced pRBC's ordered. Will start PEG tube feeds at 4pm today. CCU Objective - Vital Signs / Intake & Output Vital Signs (Last 4 hours): Vital Signs Temp Pulse Resp BP Pulse Ox 12/24/16 12:00 98.5 F 95 H 21 145/72 100 12/24/16 10:10 125/79 12/24/16 10:00 99 H 11 L 129/88 100 Intake and Output (Last 8hrs): Intake & Output 12/23/16 12/24/16 12/24/16 22:59 06:59 14:59 Intake Total 340 730 50 Output Total 1500 400 Balance -1160 330 50 Intake: IV 340 730 50 Output: Urine 1500 400 Urethral (No) 1500 400 - Physical Exam Head: Positive for: Atraumatic, Normocephalic Pupils: Positive for: PERRL Extroacular Muscles: Positive for: EOMI. Negative for: Gaze Palsy Conjunctiva: Negative for: Injected, Icteric Mouth: Positive for: Moist Mucous Membranes Neck: Positive for: Other (mechanical ventilation via tracheostomy tube in place ). Negative for: Meningeal Signs, JVD, Lymphadenopathy Respiratory/Chest: Positive for: Decreased Breath Sounds. Negative for: Accessory Muscle Use, Wheezes, Rhonchi Cardiovascular: Positive for: Regular Rate and Rhythm. Negative for: Murmurs, Rub Abdomen: Positive for: Other (LUQ PEG tube in place, surrounding area clean/dry/ intact). Negative for: Tenderness, Distention Rectal: Positive for: Other (rectal tube with liquid brown stool) Genitourinary Male: Positive for: Other (no catheter in place, draining clear yellow urine) Back: Positive for: Decubitus Ulcer (multiple ulcers: sacral, left hip, left lateral hip) Upper Extremity: Positive for: Edema (improved b/l edema, left hand and left wrist IV in place) Lower Extremity: Positive for: Edema (bilateral-improved), Other (right foot wounds, no drainage). 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 Negative for: Rashes Psychiatric: Negative for: Alert, Lethargic - Medications Active Medications: Active Medications Generic Name Dose Route Start Last Admin Trade Name Freq PRN Reason Stop Dose Admin Acetaminophen 650 mg 12/23/16 20:47 Tylenol 650 Mg Supp MA Q6 PRN Fever >100.4 F Collagenase 1 applic 12/24/16 09:00 12/24/16 10:12 Santyl TOP 1 applic DAILY LARRY Administration Furosemide 40 mg 12/24/16 09:00 12/24/16 10:10 Lasix IVP 40 mg DAILY LARRY Administration Voriconazole 300 mg/ Sodium 250 mls @ 125 mls/hr 12/23/16 21:00 12/23/16 22: 03 Chloride IVPB 125 mls/hr Q12 LARRY Administration Cefazolin Sodium 1 gm/ Sodium 100 mls @ 100 mls/hr 12/24/16 09:00 12/24/16 10 :01 Chloride IVPB 100 mls/hr Q12 LARRY Administration Meropenem 1 gm/ Sodium 100 mls @ 100 mls/hr 12/23/16 21:00 12/24/16 10:11 Chloride IVPB 100 mls/hr Q12 LARRY Administration Vancomycin HCl 750 mg/ Sodium 250 mls @ 166.667 mls/hr 12/24/16 09:00 10:12 Chloride IVPB 166.667 mls/hr DAILY LARRY Administration Insulin Human Lispro 0 units 12/23/16 22:00 12/23/16 22:05 Humalog SC Not Given Q6 LARRY Protocol Nystatin 1 applic 12/24/16 09:00 12/24/16 10:11 Nystop Topical Powder TOP 1 applic TID LARRY Administration Pantoprazole Sodium 40 mg 12/24/16 09:00 12/24/16 10:12 Protonix Inj IVP 40 mg DAILY LARRY Administration - Patient Studies Lab Studies: Microbiology Studies 12/20/16 17:05 Blood Culture - Preliminary Blood-Venous NO GROWTH AFTER 3 DAYS 12/20/16 17:00 Blood Culture - Preliminary Blood-Venous NO GROWTH AFTER 3 DAYS 12/20/16 01:35 Gram Stain - Final Trachasp Sputum Culture - Final Enterococcus Faecalis Lab Studies 12/24/16 12/24/16 12/24/16 Range/Units 12:10 11:24 05:14 WBC (4.8-10.8) K/uL RBC (4.40-5.90) Mil/uL Hgb (12.0-18.0) g/dL Hct (35.0-51.0) % MCV (80.0-94.0) fl MCH (27.0-31.0) pg MCHC (33.0-37.0) g/dL RDW (11.5-14.5) % Plt Count (130-400) K/uL PT (9.8-13.1) Seconds INR (0.9-1.2) APTT (25.6-37.1) Seconds pCO2 (35-45) mm/Hg pO2 (80-100) mm/Hg HCO3 (21-28) mmol/L ABG pH (7.35-7.45) ABG Total CO2 (22-28) mmol/L ABG O2 Saturation (95-98) % ABG O2 Content (15-23) ML/dL ABG Base Excess (-2.0-3.0) mmol/L ABG Hemoglobin (11.7-17.4) g/dL ABG Carboxyhemoglobin (0.5-1.5) % POC ABG HHb (Measured) (0.0-5.0) % ABG Methemoglobin (0.0-3.0) % ABG O2 Capacity (16-24) mL/dL Torres Test A-a O2 Difference mm/Hg Hgb O2 Saturation (95.0-98.0) % Vent Mode Mechanical Rate FiO2 % Tidal Volume PEEP Pressure Support Sodium (132-148) mmol/l Potassium (3.6-5.0) MMOL/L Chloride (98-107) mmol/L Carbon Dioxide (22-30) mmol/L Anion Gap (10-20) BUN (9-20) mg/dl Creatinine (0.8-1.5) mg/dL Est GFR ( Amer) Est GFR (Non-Af Amer) POC Glucose (mg/dL) 86 105 (65-110) mg/dL Random Glucose (75-110) mg/dL Calcium (8.4-10.2) mg/dL Total Bilirubin (0.2-1.3) mg/dl AST (17-59) U/L ALT (21-72) U/L Alkaline Phosphatase (38-126) U/L Total Protein (6.3-8.2) G/DL Albumin (3.5-5.0) g/dL Globulin (2.2-3.9) gm/dL Albumin/Globulin Ratio (1.0-2.1) Crossmatch See Detail BBK History Checked Patient has bt 12/24/16 12/24/16 12/24/16 Range/Units 04:30 04:30 04:00 WBC 7.3 (4.8-10.8) K/uL RBC 2.54 L (4.40-5.90) Mil/uL Hgb 7.5 L (12.0-18.0) g/dL Hct 23.8 L (35.0-51.0) % MCV 93.8 (80.0-94.0) fl MCH 29.6 (27.0-31.0) pg MCHC 31.5 L (33.0-37.0) g/dL RDW 16.8 H (11.5-14.5) % Plt Count 207 (130-400) K/uL PT 14.8 H (9.8-13.1) Seconds INR 1.4 H (0.9-1.2) APTT 32.9 (25.6-37.1) Seconds pCO2 42 (35-45) mm/Hg pO2 123 H (80-100) mm/Hg HCO3 29.7 H (21-28) mmol/L ABG pH 7.47 H (7.35-7.45) ABG Total CO2 31.9 H (22-28) mmol/L ABG O2 Saturation 99.3 H (95-98) % ABG O2 Content 19.9 (15-23) ML/dL ABG Base Excess 6.2 H (-2.0-3.0) mmol/L ABG Hemoglobin 14.7 (11.7-17.4) g/dL ABG Carboxyhemoglobin 1.7 H (0.5-1.5) % POC ABG HHb (Measured) 0.7 (0.0-5.0) % ABG Methemoglobin 1.9 (0.0-3.0) % ABG O2 Capacity 20.0 (16-24) mL/dL Torres Test Yes A-a O2 Difference 74.0 mm/Hg Hgb O2 Saturation 95.7 (95.0-98.0) % Vent Mode Simv Mechanical Rate 10 FiO2 35.0 % Tidal Volume 450 PEEP 5 Pressure Support 15 Sodium (132-148) mmol/l Potassium (3.6-5.0) MMOL/L Chloride (98-107) mmol/L Carbon Dioxide (22-30) mmol/L Anion Gap (10-20) BUN (9-20) mg/dl Creatinine (0.8-1.5) mg/dL Est GFR ( Amer) Est GFR (Non-Af Amer) POC Glucose (mg/dL) (65-110) mg/dL Random Glucose (75-110) mg/dL Calcium (8.4-10.2) mg/dL Total Bilirubin (0.2-1.3) mg/dl AST (17-59) U/L ALT (21-72) U/L Alkaline Phosphatase (38-126) U/L Total Protein (6.3-8.2) G/DL Albumin (3.5-5.0) g/dL Globulin (2.2-3.9) gm/dL Albumin/Globulin Ratio (1.0-2.1) Crossmatch BBK History Checked 12/24/16 12/23/16 12/23/16 Range/Units 04:00 22:05 16:57 WBC (4.8-10.8) K/uL RBC (4.40-5.90) Mil/uL Hgb (12.0-18.0) g/dL Hct (35.0-51.0) % MCV (80.0-94.0) fl MCH (27.0-31.0) pg MCHC (33.0-37.0) g/dL RDW (11.5-14.5) % Plt Count (130-400) K/uL PT (9.8-13.1) Seconds INR (0.9-1.2) APTT (25.6-37.1) Seconds pCO2 (35-45) mm/Hg pO2 (80-100) mm/Hg HCO3 (21-28) mmol/L ABG pH (7.35-7.45) ABG Total CO2 (22-28) mmol/L ABG O2 Saturation (95-98) % ABG O2 Content (15-23) ML/dL ABG Base Excess (-2.0-3.0) mmol/L ABG Hemoglobin (11.7-17.4) g/dL ABG Carboxyhemoglobin (0.5-1.5) % POC ABG HHb (Measured) (0.0-5.0) % ABG Methemoglobin (0.0-3.0) % ABG O2 Capacity (16-24) mL/dL Torres Test A-a O2 Difference mm/Hg Hgb O2 Saturation (95.0-98.0) % Vent Mode Mechanical Rate FiO2 % Tidal Volume PEEP Pressure Support Sodium 150 H (132-148) mmol/l Potassium 3.8 (3.6-5.0) MMOL/L Chloride 115 H (98-107) mmol/L Carbon Dioxide 29 (22-30) mmol/L Anion Gap 10 (10-20) BUN 28 H (9-20) mg/dl Creatinine 0.8 (0.8-1.5) mg/dL Est GFR ( Amer) > 60 Est GFR (Non-Af Amer) > 60 POC Glucose (mg/dL) 121 H 123 H (65-110) mg/dL Random Glucose 99 (75-110) mg/dL Calcium 8.0 L (8.4-10.2) mg/dL Total Bilirubin 0.6 (0.2-1.3) mg/dl AST 34 (17-59) U/L ALT 16 L D (21-72) U/L Alkaline Phosphatase 532 H (38-126) U/L Total Protein 6.5 (6.3-8.2) G/DL Albumin 2.4 L (3.5-5.0) g/dL Globulin 4.1 H (2.2-3.9) gm/dL Albumin/Globulin Ratio 0.6 L (1.0-2.1) Crossmatch BBK History Checked Laboratory Results - last 24 hr 0912/23/16 12/24/16 16:57 22:05 04:00 WBC RBC Hgb Hct MCV MCH MCHC RDW Plt Count PT INR APTT pCO2 pO2 HCO3 ABG pH ABG Total CO2 ABG O2 Saturation ABG O2 Content ABG Base Excess ABG Hemoglobin ABG Carboxyhemoglobin POC ABG HHb (Measured) ABG Methemoglobin ABG O2 Capacity Torers Test A-a O2 Difference Hgb O2 Saturation Vent Mode Mechanical Rate FiO2 Tidal Volume PEEP Pressure Support Sodium 150 H Potassium 3.8 Chloride 115 H Carbon Dioxide 29 Anion Gap 10 BUN 28 H Creatinine 0.8 Est GFR ( Amer) > 60 Est GFR (Non-Af Amer) > 60 POC Glucose (mg/dL) 123 H 121 H Random Glucose 99 Calcium 8.0 L Total Bilirubin 0.6 AST 34 ALT 16 L D Alkaline Phosphatase 532 H Total Protein 6.5 Albumin 2.4 L Globulin 4.1 H Albumin/Globulin Ratio 0.6 L Crossmatch BBK History Checked 12/24/16 12/24/16 12/24/16 04:00 04:30 04:30 WBC 7.3 RBC 2.54 L Hgb 7.5 L Hct 23.8 L MCV 93.8 MCH 29.6 MCHC 31.5 L RDW 16.8 H Plt Count 207 PT 14.8 H INR 1.4 H APTT 32.9 pCO2 42 pO2 123 H HCO3 29.7 H ABG pH 7.47 H ABG Total CO2 31.9 H ABG O2 Saturation 99.3 H ABG O2 Content 19.9 ABG Base Excess 6.2 H ABG Hemoglobin 14.7 ABG Carboxyhemoglobin 1.7 H POC ABG HHb (Measured) 0.7 ABG Methemoglobin 1.9 ABG O2 Capacity 20.0 Torres Test Yes A-a O2 Difference 74.0 Hgb O2 Saturation 95.7 Vent Mode Simv Mechanical Rate 10 FiO2 35.0 Tidal Volume 450 PEEP 5 Pressure Support 15 Sodium Potassium Chloride Carbon Dioxide Anion Gap BUN Creatinine Est GFR ( Amer) Est GFR (Non-Af Amer) POC Glucose (mg/dL) Random Glucose Calcium Total Bilirubin AST ALT Alkaline Phosphatase Total Protein Albumin Globulin Albumin/Globulin Ratio Crossmatch BBK History Checked 12/24/16 12/24/16 12/24/16 05:14 11:24 12:10 WBC RBC Hgb Hct MCV MCH MCHC RDW Plt Count PT INR APTT pCO2 pO2 HCO3 ABG pH ABG Total CO2 ABG O2 Saturation ABG O2 Content ABG Base Excess ABG Hemoglobin ABG Carboxyhemoglobin POC ABG HHb (Measured) ABG Methemoglobin ABG O2 Capacity Torres Test A-a O2 Difference Hgb O2 Saturation Vent Mode Mechanical Rate FiO2 Tidal Volume PEEP Pressure Support Sodium Potassium Chloride Carbon Dioxide Anion Gap BUN Creatinine Est GFR ( Amer) Est GFR (Non-Af Amer) POC Glucose (mg/dL) 105 86 Random Glucose Calcium Total Bilirubin AST ALT Alkaline Phosphatase Total Protein Albumin Globulin Albumin/Globulin Ratio Crossmatch See Detail BBK History Checked Patient has bt Fingerstick Blood Sugar Results: 105 Review of Systems - Review of Systems Systems not reviewed;Unavailable: Other (tracheostomy tube in place, dependant on mechanical ventilation) Critical Care Progress Note - Ventilator Checklist Head of Bed 30 Degrees: Yes Daily Sedation Vacation: No (n/a , pt not sedated) Daily Assessment of Readiness to Wean: Yes Daily Spontaneous Breathing Trial: Yes PUD Prophalyxis: Yes DVT Prophylaxis: Yes Oral Care with Chlorhexidine Gluconate {CHG}: Yes - Vent Settings MODE:: PRVC (/SIMV) TIDAL VOLUME:: 450 RESP RATE:: 10 FIO2:: 35 PEEP:: 5 PRESSURE SUPPORT:: 10 - Extremities/Vascular Does the Patient have a Central Venous Catheter?: No Does the Patient need a Central Venous Catheter?: Yes Does the Patient have a No Catheter?: Yes Does the Patient need a No Catheter?: Yes Catheter Insertion Criteria: Stage 3/Stage 4 decubits as per policy - Restraints Justification for Restraints: High risk for self extubation - Prophylaxis GI Prophylaxis GI: PPI - Prophylaxis DVT Prophylaxis DVT: SCDs Assessment/Plan - Assessment and Plan (Free Text) Assessment: 71 yr old M resident at [facility] with PMHx including HTN, A-fib, dyslipidemia , DM Type 2, diabetic neuropathy, renal insufficiency, PVD, anemia, Dementia, Osteomyelitis R foot bone base on 2015, Avascular Necrosis R Hip, Hx falls , Alcohol abuse admitted to ICU for respiratory failure requiring intubation s/ p pneumonia and septic shock. Patient with fungemia 12/04/16 , UCx + yeast species 12/04/16, Klebsiella pneumoniae 11/21, C. diff + 11/20. POD 2 s/p open tracheostomy placement; POD 0 s/p PEG tube placement. 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 Will start PEG tube feeds at 4pm today. Hgb 7.5 today, 1 unit pRBC's ordered. Per note: patient may return to [facility] when medically cleared. 1. Acute Hypercapneic Respiratory Failure 2dary to pneumonia -2nd intubation 12/04 (1st intubation 11/20-extubated 11/24) 2. s/p ventricular arrhythmias, ?? 2dary to alkalosis 3. Sacchromyces cerevisiae Fungemia 4. UTI 5. C diff 6. Anemia of Chronic Disease with coagulopathy 7. GI/DVT prophylaxis 1. POD 2 s/p open tracheostomy tube, PRVC/SIMV vent mode; will attempt CPAP trial. CXR: persistent RLL opacity, Meropenem x 5 more days (until 12/28), ID on board:Dr. Masters-will follow recommendations, naris Cx + MRSA, sputum Cx : Enterococcus faecalis sensitive to vancomycin 2. stable, EKG 12/08/16: sinus rhythm with premature supraventricular complexes with occasional PVC's, prolonged QT, Cardiology-Dr. Barnes 3. repeat BCx 12/20/16 neg x 2; BCx + 12/20/16, ID on board, continue with Voriconazole x 7 more days (until 12/30), as well as vancomycin, vanco trough 13.6 4. UA with large leukocyte esterase, occult bacteria 12/14; no replaced, UCx : no growth 5.+ 11/20; (2 negative C diff 11/24, 11/21), ID on board 6. H/H 7.5/23.8 , 1 unit pRBC's ordered, FOBT + 11/21/16 7. Protonix 40mg IV QD/ SCD's; pt will need central line - Date & Time Date: 12/24/16 Time: 10:00 <Sammy Paez - Last Filed: 12/24/16 22:01> Assessment/Plan - Assessment and Plan (Free Text) Plan: Attestation: Patient seen and examined at the bedside with Resident Dr. Salas Low; and I agree with her outline of plans and management as documented below and discussed on AM rounds today, December 24, 2016.
--- NOTE | 2016-12-24 14:05 | CP.PCM.PN ---
Subjective - Subjective Subjective: Had PEG tube, open eyes to verbal stimuli , not following commands , Tracheostomy , vent PRVC- SIMV , FIO2 35% Objective - Vital Signs/Intake and Output Vital Signs (last 24 hours): Temp Pulse Resp BP Pulse Ox 98.5 F 95 H 21 145/72 100 12/24/16 12:00 12/24/16 12:00 12/24/16 12:00 12/24/16 12:00 12/24/16 12:00 Intake and Output: 12/24/16 12/24/16 06:59 18:59 Intake Total 1070 50 Output Total 600 Balance 470 50 - Medications Medications: Current Medications Acetaminophen (Tylenol 650 Mg Supp) 650 mg MI Q6 PRN PRN Reason: Fever >100.4 F Collagenase (Santyl) 1 applic TOP DAILY [facility] Last Admin: 12/24/16 10:12 Dose: 1 applic Furosemide (Lasix) 40 mg IVP DAILY [facility] Last Admin: 12/24/16 10:10 Dose: 40 mg Voriconazole 300 mg/ Sodium (Chloride) 250 mls @ 125 mls/hr IVPB Q12 [facility]ARRY Last Admin: 12/23/16 22:03 Dose: 125 mls/hr Cefazolin Sodium 1 gm/ Sodium (Chloride) 100 mls @ 100 mls/hr IVPB Q12 [facility]ARRY Last Admin: 12/24/16 10:01 Dose: 100 mls/hr Meropenem 1 gm/ Sodium (Chloride) 100 mls @ 100 mls/hr IVPB Q12 [facility]ARR[facility] Last Admin: 12/24/16 10:11 Dose: 100 mls/hr Vancomycin HCl 750 mg/ Sodium (Chloride) 250 mls @ 166.667 mls/hr IVPB DAILY [facility]ARR[facility] Last Admin: 12/24/16 10:12 Dose: 166.667 mls/hr Insulin Human Lispro (Humalog) 0 units SC Q6 LARRY PRN Reason: Protocol Last Admin: 12/23/16 22:05 Dose: Not Given Nystatin (Nystop Topical Powder) 1 applic TOP TID [facility] Last Admin: 12/24/16 10:11 Dose: 1 applic Pantoprazole Sodium (Protonix Inj) 40 mg IVP DAILY [facility] Last Admin: 12/24/16 10:12 Dose: 40 mg - Labs Labs: 12/24/16 04:30 12/24/16 04:00 PT 14.8 Seconds (9.8-13.1) H 12/24/16 04:30 INR 1.4 (0.9-1.2) H 12/24/16 04:30 APTT 32.9 Seconds (25.6-37.1) 12/24/16 04:30 - Constitutional Appears: Chronically Ill - Head Exam Head Exam: NORMAL INSPECTION - Eye Exam Eye Exam: PERRL - ENT Exam ENT Exam: Normal Exam - Neck Exam Additional comments: Tracheostomy - Respiratory Exam Respiratory Exam: Decreased Breath Sounds (at bases) - Cardiovascular Exam Cardiovascular Exam: REGULAR RHYTHM - GI/Abdominal Exam GI & Abdominal Exam: Soft, Normal Bowel Sounds Additional comments: PEG - Extremities Exam Additional comments: edema - Back Exam Back Exam: NORMAL INSPECTION - Neurological Exam Additional comments: open eyes to verbal stimuli , not following commands , generalized weakness - Skin Skin Exam: Warm Assessment and Plan (1) Acute hypercapnic respiratory failure Status: Acute (2) Klebsiella pneumonia Status: Acute (3) Dehydration Status: Acute (4) Septic shock Status: Resolved (5) GEORGINA (acute kidney injury) Status: Acute (6) Type 2 diabetes mellitus with hyperglycemia Status: Chronic (7) HTN (hypertension) Status: Chronic (8) C. difficile colitis Status: Acute (9) Alkaline phosphatase elevation Status: Acute (10) Fungemia Status: Acute - Assessment and Plan (Free Text) Plan: continue Merren , Vanco , Voriconazole and rest of treatment, attempt of weaning
[2016-12-24 21:47] LABS: MEAN CELL VOLUME 92.9 fl (80.0-94.0); MEAN CORPUSCULAR HEMOGLOBIN 29.1 pg (27.0-31.0); MEAN CORPUSCULAR HGB CONC 31.3 g/dL (33.0-37.0); RED CELL DISTRIBUTION WIDTH 17.3 % (11.5-14.5); WHITE BLOOD COUNT 7.1 K/uL (4.8-10.8)
[2016-12-25] MEDS: Insulin Lispro (humaLOG) 100 Units/ml Inj SC SCH ×4 (05:01→22:44)
[2016-12-25 05:22] LABS: ABG ALLEN TEST YES; ABG MECHANICAL RATE 10; ARTERIAL BLOOD GAS HCO3 29.5 mmol/L (21-28); ARTERIAL BLOOD GAS MODE SIMV; ARTERIAL BLOOD GAS PH 7.49 (7.35-7.45); ARTERIAL BLOOD GAS PO2 125 mm/Hg (80-100); ARTERIAL BLOOD HGB O2 SAT 96.8 % (95.0-98.0); ATERIAL BLOOD GAS PEEP 5; CARBOXYHEMOGLOBIN 1.7 % (0.5-1.5); HHB -0.4 % (0.0-5.0); METHEMOGLOBIN 1.8 % (0.0-3.0)
[2016-12-25 06:35] LABS: HEMATOCRIT 27.3 % (35.0-51.0); MEAN CELL VOLUME 92.3 fl (80.0-94.0); MEAN CORPUSCULAR HEMOGLOBIN 29.7 pg (27.0-31.0); MEAN CORPUSCULAR HGB CONC 32.1 g/dL (33.0-37.0); RED CELL DISTRIBUTION WIDTH 17.7 % (11.5-14.5); WHITE BLOOD COUNT 6.9 K/uL (4.8-10.8)
[2016-12-25 08:00] LABS: BLOOD UREA NITROGEN 25 mg/dl (9-20); CALCIUM 7.8 mg/dL (8.4-10.2); CARBON DIOXIDE 26 mmol/L (22-30); CHLORIDE 114 mmol/L (98-107); GFR AFRICAN-AMERICAN > 60; GLUCOSE,RANDOM 107 mg/dL (75-110); POTASSIUM 3.8 MMOL/L (3.6-5.0); SODIUM 151 mmol/l (132-148)
[2016-12-25] MEDS: Meropenem 1 GM in Sodium Chloride 0.9% 100 ML IVPB SCH ×2 (09:18→20:07)
[2016-12-25] MEDS: Santyl Collagenase OINTMENT TOP SCH (09:20)
--- NOTE | 2016-12-25 11:04 | RAD ---
HISTORY: trach/ventilator COMPARISON: Comparison is made to previous study dated 12/24/2016 FINDINGS: LUNGS: Interval worsening of hazy diffuse opacities at the mid and lower right lung bilaterally since the previous study may represent worsening pulmonary vascular congestion. PLEURA: Right pleural effusion is again noted. CARDIOVASCULAR: Normal. OSSEOUS STRUCTURES: No significant abnormalities. VISUALIZED UPPER ABDOMEN: Normal. OTHER FINDINGS: Appropriate position of the tracheostomy IMPRESSION: Worsening diffuse hazy opacities at the mid and lower right lung since the previous exam suggestive of worsening pulmonary vascular congestion. Otherwise no interval change.
--- NOTE | 2016-12-25 12:18 | CP.PCM.PN ---
Subjective - Date & Time of Evaluation Date of Evaluation: 12/25/16 Time of Evaluation: 12:18 - Subjective Subjective: ID Note- Pt. seen and examined in ICU. remains on the vent via trache. does open his eyes when his name is called but does not follow commands. low grade fever this am as per nurse. Objective - Vital Signs/Intake and Output Vital Signs (last 24 hours): Temp Pulse Resp BP Pulse Ox 97.8 F 101 H 27 H 146/78 100 12/25/16 08:00 12/25/16 10:00 12/25/16 10:00 12/25/16 10:00 12/25/16 10:00 Intake and Output: 12/25/16 12/25/16 06:59 18:59 Intake Total 1940 840 Output Total 600 200 Balance 1340 640 - Medications Medications: Current Medications Acetaminophen (Tylenol 650 Mg Supp) 650 mg RI Q6 PRN PRN Reason: Fever >100.4 F Collagenase (Santyl) 1 applic TOP DAILY LARRY Last Admin: 12/25/16 09:20 Dose: 1 applic Furosemide (Lasix) 40 mg IVP DAILY LARRY Last Admin: 12/25/16 09:16 Dose: 40 mg Voriconazole 300 mg/ Sodium (Chloride) 250 mls @ 125 mls/hr IVPB Q12 LARRY Last Admin: 12/25/16 10:44 Dose: 125 mls/hr Meropenem 1 gm/ Sodium (Chloride) 100 mls @ 100 mls/hr IVPB Q12 LARRY Last Admin: 12/25/16 09:18 Dose: 100 mls/hr Vancomycin HCl 750 mg/ Sodium (Chloride) 250 mls @ 166.667 mls/hr IVPB DAILY LARRY Last Admin: 12/25/16 09:21 Dose: 166.667 mls/hr Insulin Human Lispro (Humalog) 0 units SC Q6 LARRY PRN Reason: Protocol Last Admin: 12/25/16 11:28 Dose: Not Given Nystatin (Nystop Topical Powder) 1 applic TOP TID LARRY Last Admin: 12/25/16 09:19 Dose: 1 applic Pantoprazole Sodium (Protonix Inj) 40 mg IVP DAILY LARRY Last Admin: 12/25/16 09:19 Dose: 40 mg - Labs Labs: - Additional Findings Additional findings: - Constitutional Appears: Chronically Ill - ENT Exam Additional comments: ET via trache - Neck Exam Additional comments: supple - Respiratory Exam Additional comments: intubated and on the vent - Cardiovascular Exam Cardiovascular Exam: RRR, +S1, +S2 - GI/Abdominal Exam GI & Abdominal Exam: Soft, Normal Bowel Sounds Additional comments: ND, NT has new peg tube in place - Extremities Exam Additional comments: dry b/l heel ulcers, no discharge - Neurological Exam Additional comments: on the vent , does not follow commands Laboratory Results - last 72 hr 12/22/16 12/22/16 12/23/16 15:52 22:27 05:00 WBC 7.6 RBC 2.65 L Hgb 7.9 L Hct 24.8 L MCV 93.6 MCH 30.0 MCHC 32.1 L RDW 16.7 H Plt Count 201 MPV 10.9 Neut % (Auto) 53.3 Lymph % (Auto) 34.3 Wood % (Auto) 8.5 Eos % (Auto) 1.8 Baso % (Auto) 2.1 H Neut # 4.0 Lymph # 2.6 Wood # 0.6 Eos # 0.1 Baso # 0.2 PT INR APTT pCO2 pO2 HCO3 ABG pH ABG Total CO2 ABG O2 Saturation ABG O2 Content ABG Base Excess ABG Hemoglobin ABG Carboxyhemoglobin POC ABG HHb (Measured) ABG Methemoglobin ABG O2 Capacity Torres Test A-a O2 Difference Hgb O2 Saturation Vent Mode Mechanical Rate FiO2 Tidal Volume PEEP Pressure Support Sodium Potassium Chloride Carbon Dioxide Anion Gap BUN Creatinine Est GFR ( Amer) Est GFR (Non-Af Amer) POC Glucose (mg/dL) 97 95 Random Glucose Calcium Total Bilirubin AST ALT Alkaline Phosphatase Total Protein Albumin Globulin Albumin/Globulin Ratio Vancomycin Trough Blood Type Antibody Screen Crossmatch BBK History Checked 12/23/16 12/23/16 12/23/16 05:00 05:10 05:52 WBC RBC Hgb Hct MCV MCH MCHC RDW Plt Count MPV Neut % (Auto) Lymph % (Auto) Wood % (Auto) Eos % (Auto) Baso % (Auto) Neut # Lymph # Wood # Eos # Baso # PT INR APTT pCO2 39 pO2 104 H HCO3 32.7 H ABG pH 7.54 H ABG Total CO2 34.5 H ABG O2 Saturation 99.9 H ABG O2 Content 13.1 L ABG Base Excess 10.0 H ABG Hemoglobin 9.5 L ABG Carboxyhemoglobin 1.7 H POC ABG HHb (Measured) 0.1 ABG Methemoglobin 1.7 ABG O2 Capacity 13.1 L Torres Test Yes A-a O2 Difference 97.0 Hgb O2 Saturation 96.5 Vent Mode Prvc ac Mechanical Rate 18 FiO2 35.0 Tidal Volume 450 PEEP 5 Pressure Support Sodium 147 Potassium 3.5 L Chloride 112 H Carbon Dioxide 28 Anion Gap 11 BUN 32 H Creatinine 0.8 Est GFR ( Amer) > 60 Est GFR (Non-Af Amer) > 60 POC Glucose (mg/dL) 121 H Random Glucose 100 Calcium 8.1 L Total Bilirubin 0.6 AST 29 ALT 22 Alkaline Phosphatase 620 H D Total Protein 6.5 Albumin 2.4 L Globulin 4.1 H Albumin/Globulin Ratio 0.6 L Vancomycin Trough Blood Type Antibody Screen Crossmatch BBK History Checked 12/23/16 12/23/16 12/23/16 08:50 11:26 16:57 WBC RBC Hgb Hct MCV MCH MCHC RDW Plt Count MPV Neut % (Auto) Lymph % (Auto) Wood % (Auto) Eos % (Auto) Baso % (Auto) Neut # Lymph # Wood # Eos # Baso # PT INR APTT pCO2 pO2 HCO3 ABG pH ABG Total CO2 ABG O2 Saturation ABG O2 Content ABG Base Excess ABG Hemoglobin ABG Carboxyhemoglobin POC ABG HHb (Measured) ABG Methemoglobin ABG O2 Capacity Torres Test A-a O2 Difference Hgb O2 Saturation Vent Mode Mechanical Rate FiO2 Tidal Volume PEEP Pressure Support Sodium Potassium Chloride Carbon Dioxide Anion Gap BUN Creatinine Est GFR ( Amer) Est GFR (Non-Af Amer) POC Glucose (mg/dL) 136 H 123 H Random Glucose Calcium Total Bilirubin AST ALT Alkaline Phosphatase Total Protein Albumin Globulin Albumin/Globulin Ratio Vancomycin Trough 13.6 H Blood Type Antibody Screen Crossmatch BBK History Checked 12/23/16 12/24/16 12/24/16 22:05 04:00 04:00 WBC RBC Hgb Hct MCV MCH MCHC RDW Plt Count MPV Neut % (Auto) Lymph % (Auto) Wood % (Auto) Eos % (Auto) Baso % (Auto) Neut # Lymph # Wood # Eos # Baso # PT INR APTT pCO2 42 pO2 123 H HCO3 29.7 H ABG pH 7.47 H ABG Total CO2 31.9 H ABG O2 Saturation 99.3 H ABG O2 Content 19.9 ABG Base Excess 6.2 H ABG Hemoglobin 14.7 ABG Carboxyhemoglobin 1.7 H POC ABG HHb (Measured) 0.7 ABG Methemoglobin 1.9 ABG O2 Capacity 20.0 Torres Test Yes A-a O2 Difference 74.0 Hgb O2 Saturation 95.7 Vent Mode Simv Mechanical Rate 10 FiO2 35.0 Tidal Volume 450 PEEP 5 Pressure Support 15 Sodium 150 H Potassium 3.8 Chloride 115 H Carbon Dioxide 29 Anion Gap 10 BUN 28 H Creatinine 0.8 Est GFR ( Amer) > 60 Est GFR (Non-Af Amer) > 60 POC Glucose (mg/dL) 121 H Random Glucose 99 Calcium 8.0 L Total Bilirubin 0.6 AST 34 ALT 16 L D Alkaline Phosphatase 532 H Total Protein 6.5 Albumin 2.4 L Globulin 4.1 H Albumin/Globulin Ratio 0.6 L Vancomycin Trough Blood Type Antibody Screen Crossmatch BBK History Checked 12/24/16 12/24/16 12/24/16 04:30 04:30 05:14 WBC 7.3 RBC 2.54 L Hgb 7.5 L Hct 23.8 L MCV 93.8 MCH 29.6 MCHC 31.5 L RDW 16.8 H Plt Count 207 MPV Neut % (Auto) Lymph % (Auto) Wood % (Auto) Eos % (Auto) Baso % (Auto) Neut # Lymph # Wood # Eos # Baso # PT 14.8 H INR 1.4 H APTT 32.9 pCO2 pO2 HCO3 ABG pH ABG Total CO2 ABG O2 Saturation ABG O2 Content ABG Base Excess ABG Hemoglobin ABG Carboxyhemoglobin POC ABG HHb (Measured) ABG Methemoglobin ABG O2 Capacity Torres Test A-a O2 Difference Hgb O2 Saturation Vent Mode Mechanical Rate FiO2 Tidal Volume PEEP Pressure Support Sodium Potassium Chloride Carbon Dioxide Anion Gap BUN Creatinine Est GFR ( Amer) Est GFR (Non-Af Amer) POC Glucose (mg/dL) 105 Random Glucose Calcium Total Bilirubin AST ALT Alkaline Phosphatase Total Protein Albumin Globulin Albumin/Globulin Ratio Vancomycin Trough Blood Type Antibody Screen Crossmatch BBK History Checked 12/24/16 12/24/16 12/24/16 11:24 12:10 16:56 WBC RBC Hgb Hct MCV MCH MCHC RDW Plt Count MPV Neut % (Auto) Lymph % (Auto) Wood % (Auto) Eos % (Auto) Baso % (Auto) Neut # Lymph # Wood # Eos # Baso # PT INR APTT pCO2 pO2 HCO3 ABG pH ABG Total CO2 ABG O2 Saturation ABG O2 Content ABG Base Excess ABG Hemoglobin ABG Carboxyhemoglobin POC ABG HHb (Measured) ABG Methemoglobin ABG O2 Capacity Torres Test A-a O2 Difference Hgb O2 Saturation Vent Mode Mechanical Rate FiO2 Tidal Volume PEEP Pressure Support Sodium Potassium Chloride Carbon Dioxide Anion Gap BUN Creatinine Est GFR ( Amer) Est GFR (Non-Af Amer) POC Glucose (mg/dL) 86 96 Random Glucose Calcium Total Bilirubin AST ALT Alkaline Phosphatase Total Protein Albumin Globulin Albumin/Globulin Ratio Vancomycin Trough Blood Type A POSITIVE Antibody Screen Negative Crossmatch See Detail BBK History Checked Patient has bt 12/24/16 12/24/16 12/25/16 21:35 21:59 04:59 WBC 7.1 RBC 3.01 L Hgb 8.8 L Hct 28.0 L MCV 92.9 MCH 29.1 MCHC 31.3 L RDW 17.3 H Plt Count 209 MPV Neut % (Auto) Lymph % (Auto) Wood % (Auto) Eos % (Auto) Baso % (Auto) Neut # Lymph # Wood # Eos # Baso # PT INR APTT pCO2 pO2 HCO3 ABG pH ABG Total CO2 ABG O2 Saturation ABG O2 Content ABG Base Excess ABG Hemoglobin ABG Carboxyhemoglobin POC ABG HHb (Measured) ABG Methemoglobin ABG O2 Capacity Torres Test A-a O2 Difference Hgb O2 Saturation Vent Mode Mechanical Rate FiO2 Tidal Volume PEEP Pressure Support Sodium Potassium Chloride Carbon Dioxide Anion Gap BUN Creatinine Est GFR ( Amer) Est GFR (Non-Af Amer) POC Glucose (mg/dL) 92 106 Random Glucose Calcium Total Bilirubin AST ALT Alkaline Phosphatase Total Protein Albumin Globulin Albumin/Globulin Ratio Vancomycin Trough Blood Type Antibody Screen Crossmatch BBK History Checked 12/25/16 12/25/16 12/25/16 05:30 05:30 11:06 WBC 6.9 RBC 2.95 L Hgb 8.8 L Hct 27.3 L MCV 92.3 MCH 29.7 MCHC 32.1 L RDW 17.7 H Plt Count 224 MPV Neut % (Auto) Lymph % (Auto) Wood % (Auto) Eos % (Auto) Baso % (Auto) Neut # Lymph # Wood # Eos # Baso # PT INR APTT pCO2 pO2 HCO3 ABG pH ABG Total CO2 ABG O2 Saturation ABG O2 Content ABG Base Excess ABG Hemoglobin ABG Carboxyhemoglobin POC ABG HHb (Measured) ABG Methemoglobin ABG O2 Capacity Torres Test A-a O2 Difference Hgb O2 Saturation Vent Mode Mechanical Rate FiO2 Tidal Volume PEEP Pressure Support Sodium 151 H Potassium 3.8 Chloride 114 H Carbon Dioxide 26 Anion Gap 15 BUN 25 H Creatinine 0.8 Est GFR ( Amer) > 60 Est GFR (Non-Af Amer) > 60 POC Glucose (mg/dL) 135 H Random Glucose 107 Calcium 7.8 L Total Bilirubin AST ALT Alkaline Phosphatase Total Protein Albumin Globulin Albumin/Globulin Ratio Vancomycin Trough Blood Type Antibody Screen Crossmatch BBK History Checked Microbiology 12/20/16 17:05 Blood-Venous Blood Culture - Preliminary NO GROWTH AFTER 4 DAYS 12/20/16 17:00 Blood-Venous Blood Culture - Preliminary NO GROWTH AFTER 4 DAYS 12/20/16 01:35 Trachasp Gram Stain - Final 12/20/16 01:35 Trachasp Sputum Culture - Final Enterococcus Faecalis 12/16/16 16:40 Blood-Venous Blood Culture - Final NO GROWTH AFTER 5 DAYS 12/16/16 16:40 Blood-Venous Gram Stain - Final TEST NOT PERFORMED 12/13/16 16:45 Blood-Venous Blood Culture - Final NO GROWTH AFTER 5 DAYS 12/13/16 16:45 Blood-Venous Gram Stain - Final TEST NOT PERFORMED 12/13/16 16:45 Blood-Venous Blood Culture - Final NO GROWTH AFTER 5 DAYS 12/13/16 16:45 Blood-Venous Gram Stain - Final TEST NOT PERFORMED 12/04/16 17:00 Trachasp Gram Stain - Final 12/04/16 17:00 Trachasp Sputum Culture - Final NORMAL ORAL ROSEMARY 12/14/16 17:45 Urine,No Urine Culture - Final No Growth (<1,000 CFU/ML) 12/10/16 18:30 Blood-Venous Blood Culture - Final NO GROWTH AFTER 5 DAYS 12/10/16 18:30 Blood-Venous Gram Stain - Final TEST NOT PERFORMED 12/10/16 18:30 Blood-Venous Blood Culture - Final NO GROWTH AFTER 5 DAYS 12/10/16 18:30 Blood-Venous Gram Stain - Final TEST NOT PERFORMED 12/06/16 17:30 Blood-Venous Blood Culture - Final NO GROWTH AFTER 5 DAYS 12/06/16 17:30 Blood-Venous Gram Stain - Final TEST NOT PERFORMED 12/06/16 17:50 Blood-Venous Blood Culture - Final NO GROWTH AFTER 5 DAYS 12/06/16 17:50 Blood-Venous Gram Stain - Final TEST NOT PERFORMED 12/04/16 00:10 Blood-Venous Blood Culture - Final Saccharomyces Cerevisiae 12/04/16 00:10 Blood-Venous Gram Stain - Final 12/04/16 00:10 Blood-Venous S.aureus & Coag-Neg Staph PNA FISH - Final 12/04/16 00:10 Blood-Venous Blood Culture - Final Saccharomyces Cerevisiae 12/04/16 00:10 Blood-Venous Gram Stain - Final 12/04/16 14:00 Blood S.aureus & Coag-Neg Staph PNA FISH - Final 12/04/16 14:00 Blood Blood Culture - Final Saccharomyces Cerevisiae 12/04/16 14:00 Blood Gram Stain - Final 12/04/16 18:00 Blood-Thru Central Line S.aureus & Coag-Neg Staph PNA FISH - Final 12/04/16 18:00 Blood-Thru Central Line Blood Culture - Final Saccharomyces Cerevisiae 12/04/16 18:00 Blood-Thru Central Line Gram Stain - Final 12/04/16 16:50 Urine,No Urine Culture - Final Yeast Species 12/04/16 18:00 Naris MRSA Culture (Admit) - Final MRSA DETECTED 12/04/16 02:05 Urine,No Urine Culture - Final Yeast Species 11/26/16 20:01 Nose MRSA Culture (Admit) - Final MRSA NOT DETECTED 11/20/16 10:00 Blood-Venous Blood Culture - Final NO GROWTH AFTER 5 DAYS 11/20/16 10:00 Blood-Venous Gram Stain - Final TEST NOT PERFORMED 11/21/16 10:00 Trachasp Gram Stain - Final 11/21/16 10:00 Trachasp Sputum Culture - Final Klebsiella Pneumoniae Ssp Pneu 11/20/16 15:00 Nose MRSA Culture (Admit) - Final MRSA NOT DETECTED 11/20/16 01:57 Urine,No Urine Culture - Final No Growth (<1,000 CFU/ML) Accession No. : [id number] Patient Name / ID : GRACE ANTON / [id number] Exam Date : 12/25/2016 07:22:09 ( Approved ) Study Comment : Sex / Age : M / 71Y Creator : Jorge Amaya Dictator : Jorge Amaya Tip Stitcher : Legal Billing Analyst : Jorge Amaya Approver2 : Report Date : 12/25/2016 10:58:34 My Comment : HISTORY: trach/ventilator COMPARISON: Comparison is made to previous study dated 12/24/2016 FINDINGS: LUNGS: Interval worsening of hazy diffuse opacities at the mid and lower right lung bilaterally since the previous study may represent worsening pulmonary vascular congestion. PLEURA: Right pleural effusion is again noted. CARDIOVASCULAR: Normal. OSSEOUS STRUCTURES: No significant abnormalities. VISUALIZED UPPER ABDOMEN: Normal. OTHER FINDINGS: Appropriate position of the tracheostomy IMPRESSION: Worsening diffuse hazy opacities at the mid and lower right lung since the previous exam suggestive of worsening pulmonary vascular congestion. Otherwise no interval change. 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 repeat stool c.diff- negative tox and AG repeat blood cx from 12/06/2016- negative x 2 repeat blood cx from 12/10/2016- negative x 2 repeat blood cx frpm 12/13/2016-neg x 2 repeat blood cx from 12/16-negative repeat blood cx from 12/20- neg x 2 CT abd/pelvis- as per report no perf, no free air and normal bowel. b/l pleural effusion. cxr report noted pneumonia/resp distress s/p trache fungemia is on antifungal medication, repeat blood cx are all negative x 8 c.diff - resolved Plan- continue with meropenem for HAP , day #18 for HAP. continue with meropenem for 3 more days pending clinical response. completed 2 days of Micafungin for fungemia but once yeast was ID as sacharomyces was switched to voriconazole. day #16. TTE- no vegetations as per report. continue with voriconazole for 5 more days. continue with IV vancomycin as well, day #6.( for HAP and will treat the e.fecalis in trach asp cx) . keep trough <15. in light of new fever asked nurse to change no and send stool for another c.diff . ICU time 45 minutes.
[2016-12-25] MEDS: Acetaminophen 650mg/20.3ml solution UD PO PRN (12:52)
--- NOTE | 2016-12-25 14:44 | CP.PCM.PN ---
Subjective - Date & Time of Evaluation Date of Evaluation: 12/25/16 Time of Evaluation: 14:00 - Subjective Subjective: F/U Respiratory failure. Pt with eyes ope, move head to verbal stimuli, minimal response to tactile stimuli, Pt with Tracheostomy, on PRVC/SIMV 10 bpn, FIO2 35%. VS stable. Objective - Vital Signs/Intake and Output Vital Signs (last 24 hours): Temp Pulse Resp BP Pulse Ox 100.7 F H 95 H 21 135/73 100 12/25/16 12:52 12/25/16 14:00 12/25/16 14:00 12/25/16 14:00 12/25/16 14:00 Intake and Output: 12/25/16 12/25/16 06:59 18:59 Intake Total 1940 1660 Output Total 600 700 Balance 1340 960 - Medications Medications: Current Medications Acetaminophen (Tylenol 650 Mg Supp) 650 mg NJ Q6 PRN PRN Reason: Fever >100.4 F Acetaminophen (Tylenol 650mg/20.3ml Solution Ud) 650 mg PO Q4 PRN PRN Reason: Temperature Last Admin: 12/25/16 12:52 Dose: 650 mg Collagenase (Santyl) 1 applic TOP DAILY [facility] Last Admin: 12/25/16 09:20 Dose: 1 applic Furosemide (Lasix) 40 mg IVP DAILY [facility] Last Admin: 12/25/16 09:16 Dose: 40 mg Voriconazole 300 mg/ Sodium (Chloride) 250 mls @ 125 mls/hr IVPB Q12 [facility]ARRY Last Admin: 12/25/16 10:44 Dose: 125 mls/hr Meropenem 1 gm/ Sodium (Chloride) 100 mls @ 100 mls/hr IVPB Q12 [facility]ARRY Last Admin: 12/25/16 09:18 Dose: 100 mls/hr Vancomycin HCl 750 mg/ Sodium (Chloride) 250 mls @ 166.667 mls/hr IVPB DAILY [facility] Last Admin: 12/25/16 09:21 Dose: 166.667 mls/hr Insulin Human Lispro (Humalog) 0 units SC Q6 LARRY PRN Reason: Protocol Last Admin: 12/25/16 11:28 Dose: Not Given Nystatin (Nystop Topical Powder) 1 applic TOP TID [facility] Last Admin: 12/25/16 09:19 Dose: 1 applic Pantoprazole Sodium (Protonix Inj) 40 mg IVP DAILY LARRY Last Admin: 12/25/16 09:19 Dose: 40 mg - Labs Labs: 12/25/16 05:30 12/25/16 05:30 PT 14.8 Seconds (9.8-13.1) H 12/24/16 04:30 INR 1.4 (0.9-1.2) H 12/24/16 04:30 APTT 32.9 Seconds (25.6-37.1) 12/24/16 04:30 - Constitutional Appears: Chronically Ill - Head Exam Head Exam: NORMAL INSPECTION - Eye Exam Eye Exam: PERRL - ENT Exam Additional comments: Tracheostomy - Neck Exam Neck Exam: Normal Inspection - Respiratory Exam Respiratory Exam: Rhonchi (b/l) - Cardiovascular Exam Cardiovascular Exam: REGULAR RHYTHM - GI/Abdominal Exam GI & Abdominal Exam: Soft, Normal Bowel Sounds Additional comments: Peg tube in place. - Extremities Exam Additional comments: Edema upper extremities. - Back Exam Back Exam: NORMAL INSPECTION - Neurological Exam Additional comments: Open eyes to verbal stimuli, not following commands, generalized weakness. - Psychiatric Exam Psychiatric exam: Flat Affect - Skin Skin Exam: Warm Assessment and Plan (1) Acute hypercapnic respiratory failure Status: Acute (2) Klebsiella pneumonia Status: Acute (3) Dehydration Status: Acute (4) Septic shock Status: Resolved (5) GEORGINA (acute kidney injury) Status: Acute (6) Type 2 diabetes mellitus with hyperglycemia Status: Chronic (7) HTN (hypertension) Status: Chronic (8) C. difficile colitis Status: Acute (9) Alkaline phosphatase elevation Status: Acute (10) Fungemia Status: Acute - Assessment and Plan (Free Text) Plan: ICU Time: 36 min.
[2016-12-26] MEDS: Insulin Lispro (humaLOG) 100 Units/ml Inj SC SCH ×4 (05:38→22:36)
[2016-12-26 05:44] LABS: ABG ALLEN TEST YES; ABG MECHANICAL RATE 10; ARTERIAL BLOOD GAS HCO3 30.4 mmol/L (21-28); ARTERIAL BLOOD GAS MODE PRVC/SIMV; ARTERIAL BLOOD GAS O2 CONTENT 12.8 ML/dL (15-23); ARTERIAL BLOOD GAS PH 7.48 (7.35-7.45); ARTERIAL BLOOD GAS PO2 75 mm/Hg (80-100); ARTERIAL BLOOD HGB O2 SAT 95.2 % (95.0-98.0); ATERIAL BLOOD GAS PEEP 5; CARBOXYHEMOGLOBIN 1.6 % (0.5-1.5); HHB 1.5 % (0.0-5.0); METHEMOGLOBIN 1.7 % (0.0-3.0)
[2016-12-26 06:56] LABS: HEMATOCRIT 27.4 % (35.0-51.0); MEAN CELL VOLUME 92.9 fl (80.0-94.0); MEAN CORPUSCULAR HGB CONC 32.3 g/dL (33.0-37.0); RED CELL DISTRIBUTION WIDTH 17.5 % (11.5-14.5); WHITE BLOOD COUNT 6.7 K/uL (4.8-10.8)
[2016-12-26 07:48] LABS: BLOOD UREA NITROGEN 27 mg/dl (9-20); CALCIUM 7.6 mg/dL (8.4-10.2); CHLORIDE 109 mmol/L (98-107); GFR AFRICAN-AMERICAN > 60; GLUCOSE,RANDOM 104 mg/dL (75-110); POTASSIUM 3.9 MMOL/L (3.6-5.0); SODIUM 146 mmol/l (132-148)
[2016-12-26 08:04] LABS: CARBON DIOXIDE 27 mmol/L (22-30)
--- NOTE | 2016-12-26 08:53 | CP.CCUPN ---
CCU Subjective - Physician Review Events Since Last Encounter (Free Text): 12/26/16 08:47 Patient on ventilator through tracheostomy, on PRVC SIMV TV 450, RR 10, FIO2 35% , PS 10, no response to verbal stimuli, on PEG feeding, no pressors, events reviewed CCU Objective - Vital Signs / Intake & Output Vital Signs (Last 4 hours): Vital Signs Pulse Resp Pulse Ox 12/26/16 05:45 96 H 25 H 99 Intake and Output (Last 8hrs): Intake & Output 12/25/16 12/26/16 12/26/16 22:59 06:59 14:59 Intake Total 1410 1160 Output Total 175 750 Balance 1235 410 Intake: Intake, Piggyback 350 Tube Feeding 560 660 Free Water Flush 500 500 Output: Urine 175 750 Urethral (No) 175 750 - Physical Exam Head: Positive for: Atraumatic, Normocephalic Pupils: Positive for: PERRL Extroacular Muscles: Negative for: Gaze Palsy Conjunctiva: Negative for: Injected, Icteric Mouth: Positive for: Moist Mucous Membranes Neck: Positive for: Other (mechanical ventilation via tracheostomy tube in place ). Negative for: Meningeal Signs, JVD, Lymphadenopathy Respiratory/Chest: Positive for: Decreased Breath Sounds. Negative for: Accessory Muscle Use, Wheezes, Rhonchi Cardiovascular: Positive for: Regular Rate and Rhythm. Negative for: Murmurs, Rub Abdomen: Positive for: Other (LUQ PEG tube in place, surrounding area clean/dry/ intact). Negative for: Tenderness, Distention Rectal: Positive for: Other (rectal tube with liquid brown stool) Genitourinary Male: Positive for: Other (no catheter in place, draining clear yellow urine) Back: Positive for: Decubitus Ulcer (multiple ulcers: sacral, left hip, left lateral hip) Upper Extremity: Positive for: Edema (improved b/l edema, left hand and left wrist IV in place) Lower Extremity: Positive for: Edema (bilateral-improved), Other (right foot wounds, no drainage). Negative for: CALF TENDERNESS, Cyanosis Neurological: Positive for: Other ( opens eyes, no response to verbal stimuli) Skin: Positive for: Warm, Other (multiple ulcers (sacral, left hip, right foot)- improving per wound care ). Negative for: Rashes - Medications Active Medications: Active Medications Generic Name Dose Route Start Last Admin Trade Name Freq PRN Reason Stop Dose Admin Acetaminophen 650 mg 12/23/16 20:47 Tylenol 650 Mg Supp RI Q6 PRN Fever >100.4 F Acetaminophen 650 mg 12/25/16 12:45 12/25/16 12:52 Tylenol 650mg/20.3ml Solution Ud PO 650 mg Q4 PRN Administration Temperature Collagenase 1 applic 12/24/16 09:00 12/25/16 09:20 Santyl TOP 1 applic DAILY LARRY Administration Furosemide 40 mg 12/24/16 09:00 12/25/16 09:16 Lasix IVP 40 mg DAILY LARRY Administration Voriconazole 300 mg/ Sodium 250 mls @ 125 mls/hr 12/23/16 21:00 12/25/16 20: 08 Chloride IVPB 125 mls/hr Q12 LARRY Administration Meropenem 1 gm/ Sodium 100 mls @ 100 mls/hr 12/23/16 21:00 12/25/16 20:07 Chloride IVPB 100 mls/hr Q12 LARRY Administration Vancomycin HCl 750 mg/ Sodium 250 mls @ 166.667 mls/hr 12/24/16 09:00 09:21 Chloride IVPB 166.667 mls/hr DAILY LARRY Administration Insulin Human Lispro 0 units 12/23/16 22:00 12/26/16 05:38 Humalog SC Not Given Q6 [facility] Protocol Nystatin 1 applic 12/24/16 09:00 12/25/16 16:44 Nystop Topical Powder TOP 1 applic TID LARRY Administration Pantoprazole Sodium 40 mg 12/24/16 09:00 12/25/16 09:19 Protonix Inj IVP 40 mg DAILY LARRY Administration - Patient Studies Lab Studies: Microbiology Studies 12/20/16 17:05 Blood Culture - Final Blood-Venous NO GROWTH AFTER 5 DAYS Gram Stain - Final TEST NOT PERFORMED 12/20/16 17:00 Blood Culture - Final Blood-Venous NO GROWTH AFTER 5 DAYS Gram Stain - Final TEST NOT PERFORMED Lab Studies 12/26/16 12/26/16 12/26/16 Range/Units 07:00 05:36 05:32 WBC 6.7 (4.8-10.8) K/uL RBC 2.95 L (4.40-5.90) Mil/uL Hgb 8.8 L (12.0-18.0) g/dL Hct 27.4 L (35.0-51.0) % MCV 92.9 (80.0-94.0) fl MCH 30.0 (27.0-31.0) pg MCHC 32.3 L (33.0-37.0) g/dL RDW 17.5 H (11.5-14.5) % Plt Count 224 (130-400) K/uL pCO2 42 (35-45) mm/Hg pO2 75 L (80-100) mm/Hg HCO3 30.4 H (21-28) mmol/L ABG pH 7.48 H (7.35-7.45) ABG Total CO2 32.6 H (22-28) mmol/L ABG O2 Saturation 98.4 H (95-98) % ABG O2 Content 12.8 L (15-23) ML/dL ABG Base Excess 7.1 H (-2.0-3.0) mmol/L ABG Hemoglobin 9.5 L (11.7-17.4) g/dL ABG Carboxyhemoglobin 1.6 H (0.5-1.5) % POC ABG HHb (Measured) 1.5 (0.0-5.0) % ABG Methemoglobin 1.7 (0.0-3.0) % ABG O2 Capacity 13.0 L (16-24) mL/dL Torres Test Yes A-a O2 Difference 122.0 mm/Hg Hgb O2 Saturation 95.2 (95.0-98.0) % Vent Mode Prvc/simv Mechanical Rate 10 FiO2 35.0 % Tidal Volume 450 PEEP 5 Pressure Support 10 Sodium (132-148) mmol/l Potassium (3.6-5.0) MMOL/L Chloride (98-107) mmol/L Carbon Dioxide (22-30) mmol/L Anion Gap (10-20) BUN (9-20) mg/dl Creatinine (0.8-1.5) mg/dL Est GFR ( Amer) Est GFR (Non-Af Amer) POC Glucose (mg/dL) 110 (65-110) mg/dL Random Glucose (75-110) mg/dL Calcium (8.4-10.2) mg/dL Vancomycin Trough (5.0-10.0) ug/mL 12/26/16 12/26/16 12/25/16 Range/Units 05:30 05:30 21:28 WBC (4.8-10.8) K/uL RBC (4.40-5.90) Mil/uL Hgb (12.0-18.0) g/dL Hct (35.0-51.0) % MCV (80.0-94.0) fl MCH (27.0-31.0) pg MCHC (33.0-37.0) g/dL RDW (11.5-14.5) % Plt Count (130-400) K/uL pCO2 (35-45) mm/Hg pO2 (80-100) mm/Hg HCO3 (21-28) mmol/L ABG pH (7.35-7.45) ABG Total CO2 (22-28) mmol/L ABG O2 Saturation (95-98) % ABG O2 Content (15-23) ML/dL ABG Base Excess (-2.0-3.0) mmol/L ABG Hemoglobin (11.7-17.4) g/dL ABG Carboxyhemoglobin (0.5-1.5) % POC ABG HHb (Measured) (0.0-5.0) % ABG Methemoglobin (0.0-3.0) % ABG O2 Capacity (16-24) mL/dL Torres Test A-a O2 Difference mm/Hg Hgb O2 Saturation (95.0-98.0) % Vent Mode Mechanical Rate FiO2 % Tidal Volume PEEP Pressure Support Sodium 146 (132-148) mmol/l Potassium 3.9 (3.6-5.0) MMOL/L Chloride 109 H (98-107) mmol/L Carbon Dioxide 27 (22-30) mmol/L Anion Gap 14 (10-20) BUN 27 H (9-20) mg/dl Creatinine 0.8 (0.8-1.5) mg/dL Est GFR ( Amer) > 60 Est GFR (Non-Af Amer) > 60 POC Glucose (mg/dL) 121 H (65-110) mg/dL Random Glucose 104 (75-110) mg/dL Calcium 7.6 L (8.4-10.2) mg/dL Vancomycin Trough 19.2 H (5.0-10.0) ug/mL 12/25/16 12/25/16 12/25/16 Range/Units 16:16 11:06 06:00 WBC (4.8-10.8) K/uL RBC (4.40-5.90) Mil/uL Hgb (12.0-18.0) g/dL Hct (35.0-51.0) % MCV (80.0-94.0) fl MCH (27.0-31.0) pg MCHC (33.0-37.0) g/dL RDW (11.5-14.5) % Plt Count (130-400) K/uL pCO2 39 (35-45) mm/Hg pO2 125 H (80-100) mm/Hg HCO3 29.5 H (21-28) mmol/L ABG pH 7.49 H (7.35-7.45) ABG Total CO2 30.9 H (22-28) mmol/L ABG O2 Saturation 100.4 H (95-98) % ABG O2 Content 12.0 L (15-23) ML/dL ABG Base Excess 5.9 H (-2.0-3.0) mmol/L ABG Hemoglobin 8.6 L (11.7-17.4) g/dL ABG Carboxyhemoglobin 1.7 H (0.5-1.5) % POC ABG HHb (Measured) -0.4 L (0.0-5.0) % ABG Methemoglobin 1.8 (0.0-3.0) % ABG O2 Capacity 12.0 L (16-24) mL/dL Torres Test Yes A-a O2 Difference 76.0 mm/Hg Hgb O2 Saturation 96.8 (95.0-98.0) % Vent Mode Simv Mechanical Rate 10 FiO2 35.0 % Tidal Volume 450 PEEP 5 Pressure Support 10 Sodium (132-148) mmol/l Potassium (3.6-5.0) MMOL/L Chloride (98-107) mmol/L Carbon Dioxide (22-30) mmol/L Anion Gap (10-20) BUN (9-20) mg/dl Creatinine (0.8-1.5) mg/dL Est GFR ( Amer) Est GFR (Non-Af Amer) POC Glucose (mg/dL) 130 H 135 H (65-110) mg/dL Random Glucose (75-110) mg/dL Calcium (8.4-10.2) mg/dL Vancomycin Trough (5.0-10.0) ug/mL Laboratory Results - last 24 hr 12/25/16 12/25/16 12/25/16 06:00 11:06 16:16 WBC RBC Hgb Hct MCV MCH MCHC RDW Plt Count pCO2 39 pO2 125 H HCO3 29.5 H ABG pH 7.49 H ABG Total CO2 30.9 H ABG O2 Saturation 100.4 H ABG O2 Content 12.0 L ABG Base Excess 5.9 H ABG Hemoglobin 8.6 L ABG Carboxyhemoglobin 1.7 H POC ABG HHb (Measured) -0.4 L ABG Methemoglobin 1.8 ABG O2 Capacity 12.0 L Torres Test Yes A-a O2 Difference 76.0 Hgb O2 Saturation 96.8 Vent Mode Simv Mechanical Rate 10 FiO2 35.0 Tidal Volume 450 PEEP 5 Pressure Support 10 Sodium Potassium Chloride Carbon Dioxide Anion Gap BUN Creatinine Est GFR ( Amer) Est GFR (Non-Af Amer) POC Glucose (mg/dL) 135 H 130 H Random Glucose Calcium Vancomycin Trough 12/25/16 12/26/16 12/26/16 21:28 05:30 05:30 WBC RBC Hgb Hct MCV MCH MCHC RDW Plt Count pCO2 pO2 HCO3 ABG pH ABG Total CO2 ABG O2 Saturation ABG O2 Content ABG Base Excess ABG Hemoglobin ABG Carboxyhemoglobin POC ABG HHb (Measured) ABG Methemoglobin ABG O2 Capacity Torres Test A-a O2 Difference Hgb O2 Saturation Vent Mode Mechanical Rate FiO2 Tidal Volume PEEP Pressure Support Sodium 146 Potassium 3.9 Chloride 109 H Carbon Dioxide 27 Anion Gap 14 BUN 27 H Creatinine 0.8 Est GFR ( Amer) > 60 Est GFR (Non-Af Amer) > 60 POC Glucose (mg/dL) 121 H Random Glucose 104 Calcium 7.6 L Vancomycin Trough 19.2 H 12/26/16 12/26/16 12/26/16 05:32 05:36 07:00 WBC 6.7 RBC 2.95 L Hgb 8.8 L Hct 27.4 L MCV 92.9 MCH 30.0 MCHC 32.3 L RDW 17.5 H Plt Count 224 pCO2 42 pO2 75 L HCO3 30.4 H ABG pH 7.48 H ABG Total CO2 32.6 H ABG O2 Saturation 98.4 H ABG O2 Content 12.8 L ABG Base Excess 7.1 H ABG Hemoglobin 9.5 L ABG Carboxyhemoglobin 1.6 H POC ABG HHb (Measured) 1.5 ABG Methemoglobin 1.7 ABG O2 Capacity 13.0 L Torres Test Yes A-a O2 Difference 122.0 Hgb O2 Saturation 95.2 Vent Mode Prvc/simv Mechanical Rate 10 FiO2 35.0 Tidal Volume 450 PEEP 5 Pressure Support 10 Sodium Potassium Chloride Carbon Dioxide Anion Gap BUN Creatinine Est GFR ( Amer) Est GFR (Non-Af Amer) POC Glucose (mg/dL) 110 Random Glucose Calcium Vancomycin Trough Fingerstick Blood Sugar Results: 110 Assessment/Plan - Assessment and Plan (Free Text) Assessment: A/P Respiratory failure, pneumonia, sepsis, UTI, C diff, fungemia, s/p tracheostomy , anemia, h/o A Fib, DM, renal insufficiency, dementia - ventilatory support - pulmonary toilets - Weaning as tolerated - ID follow up - Continue meds Critical care 35 min
[2016-12-26] MEDS: Meropenem 1 GM in Sodium Chloride 0.9% 100 ML IVPB SCH ×2 (09:00→21:00)
[2016-12-26] MEDS: Santyl Collagenase OINTMENT TOP SCH (09:01)
[2016-12-26] MEDS: Acetaminophen 650mg/20.3ml solution UD PO PRN (09:03)
--- NOTE | 2016-12-26 19:25 | CP.PCM.PN ---
Subjective - Date & Time of Evaluation Date of Evaluation: 12/26/16 Time of Evaluation: 13:30 - Subjective Subjective: F/U Respiratory Failure. Pt with open eyes to tactile stimuli, does not following commands, on vent via trach PRVC/SIMV 10 bpm, FIO2 35%. Objective - Vital Signs/Intake and Output Vital Signs (last 24 hours): Temp Pulse Resp BP Pulse Ox 98.6 F 92 H 25 H 138/72 99 12/26/16 16:00 12/26/16 18:00 12/26/16 18:00 12/26/16 18:00 12/26/16 18:00 Intake and Output: 12/26/16 12/27/16 18:59 06:59 Intake Total 2230 Output Total 1075 Balance 1155 - Medications Medications: Current Medications Acetaminophen (Tylenol 650 Mg Supp) 650 mg TN Q6 PRN PRN Reason: Fever >100.4 F Acetaminophen (Tylenol 650mg/20.3ml Solution Ud) 650 mg PO Q4 PRN PRN Reason: Temperature Last Admin: 12/26/16 09:03 Dose: 650 mg Collagenase (Santyl) 1 applic TOP DAILY [facility] Last Admin: 12/26/16 09:01 Dose: 1 applic Furosemide (Lasix) 40 mg IVP DAILY [facility] Last Admin: 12/26/16 09:00 Dose: 40 mg Voriconazole 300 mg/ Sodium (Chloride) 250 mls @ 125 mls/hr IVPB Q12 LARRY Last Admin: 12/26/16 12:35 Dose: 125 mls/hr Meropenem 1 gm/ Sodium (Chloride) 100 mls @ 100 mls/hr IVPB Q12 LARRY Last Admin: 12/26/16 09:00 Dose: 100 mls/hr Vancomycin HCl 750 mg/ Sodium (Chloride) 250 mls @ 166.667 mls/hr IVPB DAILY [facility] Last Admin: 12/26/16 09:03 Dose: 166.667 mls/hr Insulin Human Lispro (Humalog) 0 units SC Q6 LARRY PRN Reason: Protocol Last Admin: 12/26/16 16:57 Dose: Not Given Nystatin (Nystop Topical Powder) 1 applic TOP TID [facility] Last Admin: 12/26/16 16:17 Dose: 1 applic Pantoprazole Sodium (Protonix Inj) 40 mg IVP DAILY [facility] Last Admin: 12/26/16 09:01 Dose: 40 mg - Labs Labs: 12/26/16 07:00 12/26/16 05:30 PT 14.8 Seconds (9.8-13.1) H 12/24/16 04:30 INR 1.4 (0.9-1.2) H 12/24/16 04:30 APTT 32.9 Seconds (25.6-37.1) 12/24/16 04:30 - Constitutional Appears: Chronically Ill - Head Exam Head Exam: NORMAL INSPECTION - Eye Exam Eye Exam: PERRL - ENT Exam Additional comments: Tracheostomy - Neck Exam Neck Exam: Normal Inspection - Respiratory Exam Respiratory Exam: Rhonchi (b/l) - Cardiovascular Exam Cardiovascular Exam: REGULAR RHYTHM - GI/Abdominal Exam GI & Abdominal Exam: Soft, Normal Bowel Sounds Additional comments: Peg tube in place. - Extremities Exam Additional comments: Edema upper extremities. - Back Exam Additional comments: Sacral ulcer. - Neurological Exam Additional comments: Open eyes to verbal stimuli, does not following commands, generalized weakness. - Psychiatric Exam Psychiatric exam: Flat Affect - Skin Skin Exam: Warm Additional comments: Multiple ulcers: L hip, R foot. Sacral. Assessment and Plan (1) Acute hypercapnic respiratory failure Status: Acute (2) Klebsiella pneumonia Status: Acute (3) Dehydration Status: Acute (4) Septic shock Status: Resolved (5) GEORGINA (acute kidney injury) Status: Acute (6) Type 2 diabetes mellitus with hyperglycemia Status: Chronic (7) HTN (hypertension) Status: Chronic (8) C. difficile colitis Status: Acute (9) Alkaline phosphatase elevation Status: Acute (10) Fungemia Status: Acute - Assessment and Plan (Free Text) Plan: Continue vent support, Merropenem, Vanco, Vanconazole and rest of Tx.
[2016-12-27] MEDS: Acetaminophen 650mg/20.3ml solution UD PO PRN (00:59)
[2016-12-27] MEDS: Insulin Lispro (humaLOG) 100 Units/ml Inj SC SCH ×3 (05:14→16:10)
[2016-12-27 05:49] LABS: HEMATOCRIT 26.7 % (35.0-51.0); MEAN CELL VOLUME 92.3 fl (80.0-94.0); MEAN CORPUSCULAR HGB CONC 32.5 g/dL (33.0-37.0); RED CELL DISTRIBUTION WIDTH 16.7 % (11.5-14.5); WHITE BLOOD COUNT 7.5 K/uL (4.8-10.8)
[2016-12-27 05:52] LABS: BLOOD UREA NITROGEN 31 mg/dl (9-20); CALCIUM 7.7 mg/dL (8.4-10.2); CARBON DIOXIDE 25 mmol/L (22-30); CHLORIDE 106 mmol/L (98-107); GFR AFRICAN-AMERICAN > 60; GLUCOSE,RANDOM 108 mg/dL (75-110); POTASSIUM 3.9 MMOL/L (3.6-5.0); SODIUM 141 mmol/l (132-148)
--- NOTE | 2016-12-27 08:38 | PN ---
CRITICAL CARE PROGRESS NOTE DATE: 12/25/2016 LOCATION: The patient in ICU bed #431. Time spent is 35 minutes. SUBJECTIVE: The patient is seen and examined at the bedside. Events since admission reviewed. Status post PEG tube placement postop day 1, status post tracheostomy postop day 3, remains dependent on mechanical ventilation. Currently on IMV/PRVC rate 10, set tidal volume 450, exhaled rate 27, exhaled tidal volume 440, minute ventilation 8.7 L on FiO2 of 35%, saturating 97%, mean peak airway pressure 19 and tidal CO2 of 19. PHYSICAL EXAMINATION: VITAL SIGNS: Temperature 97.8, heart rate 101 regular, blood pressure 146/78, mean arterial pressure 100. Intake 3615, output 1900, positive balance 1715. Weight 169 pounds. HEAD, EYES, EARS, NOSE AND THROAT: Pupils round and reactive to light and accommodation. Extraocular muscles intact. Conjunctivae pale. Sclerae white. NECK: Tracheostomy in place. No secretion noted. CHEST: Bilateral breath sounds diminished in intensity. HEART: Rhythm regular. S1 and S2 normal. No audible murmur. ABDOMEN: Bowel sounds present and soft. EXTREMITIES: Trace edema. PEG in place. NEUROLOGIC: Arousable, but appear somewhat sleepy. SKIN: Warm to touch. No excoriation noted. LABORATORY DATA: WBC 6.9, hemoglobin 8.8, hematocrit 27.3, and platelet count 224. PT 14.8, INR 1.4 and PTT 32.9. ABG; pH 7.47, pCO2 of 42, pO2 of 123, saturation 99.3 on SIMV 10, 450, 35%, pressure support of 15 and PEEP of 5. SMA-7, sodium 151, potassium 3.8, chloride 140, CO2 of 26, blood urea nitrogen 25, creatinine 0.8, glucose 135, and calcium 7.8. Urinalysis is negative. Stool occult blood positive. Vancomycin trough level 13.6. C. diff antigen positive. Sputum culture positive for Enterococcus faecalis. Chest x-ray shows increased pulmonary vascular congestion. CURRENT MEDICATIONS: Include Tylenol 650 q. 6 p.r.n., collagenase one application topical daily, Lasix 40 IV daily, Humalog on sliding scale, meropenem 1 g IV q. 12 hours, nystatin one application topically 3 times daily, Protonix 40 IV daily, vancomycin 750 IV daily, voriconazole 300 mg at 125 mL/hour IV q. 12 hour. IMPRESSION: 1 Neurologic; remains lethargic secondary to metabolic encephalopathy superimposed on age related dementia. 2. Pulmonary; status post tracheostomy recurring respiratory failure. Healthcare-associated pneumonia, on vancomycin, meropenem and fluconazole. 3. Cardiac; remains normotensive. No cardiac arrhythmia noted. 4. Gastrointestinal; status post percutaneous endoscopic gastrostomy insertion. We will start feeding once cleared by Gastroenterology. 5. Hematology; leukocytosis, resolved. Anemia from chronic disease, however, stool guaiac positive secondary to gastritis. Continue gastrointestinal prophylaxis. 6. Renal; hypernatremia on free water. Positive fluid balance, however, on diuretic, closely monitor chest x-ray, add Lasix as needed. 7. Infectious disease; status post respiratory failure, healthcare-associated pneumonia, sputum positive for Enterococcus faecalis. Peripheral vascular disease with amputation of left third toe. Continue antibiotics as per recommended by Infectious disease consult. Heri Izquierdo MD MTDD
[2016-12-27] MEDS: Meropenem 1 GM in Sodium Chloride 0.9% 100 ML IVPB SCH ×2 (08:55→20:05)
[2016-12-27] MEDS: Santyl Collagenase OINTMENT TOP SCH (08:56)
--- NOTE | 2016-12-27 09:35 | PN ---
NEPHROLOGY FOLLOWUP CHIEF COMPLAINT: Unable to obtain, the patient is sleeping. HISTORY OF PRESENT ILLNESS AND REVIEW OF SYSTEMS: Overnight fever noted. The patient remains on trach. He is sleeping at this time and unable to provide any history and review of system, otherwise has remained stable. PHYSICAL EXAMINATION: GENERAL: The patient is ill appearing, not in acute distress. VITAL SIGNS: Afebrile, pulse is 101, blood pressure 146/78. He is ventilated with tracheostomy site. His urine output has been 1900 mL yesterday. LUNGS: Bilateral vesicular breath sounds, anteriorly clear. CARDIOVASCULAR: S1 and S2 normal with mild sinus tachycardia. ABDOMEN: Soft, nontender. No organomegaly could be appreciated. EXTREMITIES: No edema in the lower extremities. He had upper extremity 1+ edema bilaterally. SKIN: Otherwise no rash or ulceration. PSYCHIATRY: Unable to obtain. NEUROLOGIC: The patient is sleeping at this time, still having nasal swelling. LABORATORY DATA: Workup had shown white blood cell count is 6.9, hemoglobin is 8.8, platelet count is 224. Sodium is 151, potassium 3.8, creatinine 0.8, glucose is 107, calcium is 7.8. His previous urine had not shown any protein. The patient had chest x-ray done yesterday which had shown tracheostomy tube in site, persistent right lower lobe opacity and suspected minor left basilar atelectasis with small effusion, mild pulmonary congestion. CURRENT MEDICATIONS: Reviewed which showed the patient is on Tylenol, Lasix 40 mg IV daily, insulin, meropenem, nystatin topical, pantoprazole, vancomycin and voriconazole. ASSESSMENT: 1. Acute over critical over acute kidney injury, resolved. 2. Hypernatremia. 3. Respiratory failure, status post tracheostomy and ventilation. 4. The patient also has history of Clostridium difficile. 5. Pneumonia. RECOMMENDATIONS: Renal function remains stable, his GEORGINA has resolved; however, he continues to have hypernatremia, partly contributed by he getting Lasix, also his trach and vent site, he is unable to take any p.o., he is dependent on the PEG tube feedings. We will add clean water to 50 mL q. 4 hours. Continue with the electrolyte supplement as needed. All questions are answered. Discussed with the ICU team. Bryan Barreto MD
--- NOTE | 2016-12-27 09:40 | PN ---
NEPHROLOGY FOLLOWUP DATE: CHIEF COMPLAINT: Unable to obtain. HISTORY OF PRESENT ILLNESS AND REVIEW OF SYSTEMS: The patient remains on trach in bed. Unable to follow commands. He is not communicative. His sodium has improved. Otherwise, he remains stable. PHYSICAL EXAMINATION GENERAL: The patient is ill-appearing, not in acute distress. VITAL SIGNS: His temperature is 100.1, blood pressure 140/76, and pulse is 97. Saturation well maintained. HEENT: The patient is on tracheostomy and ventilation. LUNGS: Bilateral vesicular sounds with crackle and rales. CARDIOVASCULAR: S1 and S2 normal. No murmur. ABDOMEN: Soft, nontender. No organomegaly. EXTREMITIES: No edema, but upper extremity is somewhat edematous. NEUROLOGIC: The patient is mostly non-communicative, not following commands. He made 1600 mL urine yesterday. LABORATORY DATA: Workup shows hemoglobin is 8.8 and platelet count is 224. Sodium is 146, which improved from 151, potassium 3.9, creatinine is 0.8, and calcium is 7.6. MEDICATIONS: Current medications were reviewed. ASSESSMENT: Overall condition is stable. DIAGNOSES: Include: 1. Hypernatremia, which has improved. 2. Acute respiratory failure with pneumonia. 3. Sepsis. 4. Urinary tract infection. 5. Clostridium difficile. 6. Fungemia. 7. Status post tracheostomy. 8. Anemia. 9. History of atrial fibrillation. 10. Acute kidney injury, resolved. RECOMMENDATIONS: Continue with the free water supplementation by feeding tube 250 mL q. 4 hours. Otherwise, renal function is stable. Blood pressure is under acceptable control. His GEORGINA has resolved. Then, further management as per the ICU team. Discussed the plan of care with the ICU team. Bryan Barreto MD
--- NOTE | 2016-12-27 11:37 | CP.PCM.PN ---
Subjective - Date & Time of Evaluation Date of Evaluation: 12/27/16 Time of Evaluation: 12:00 - Subjective Subjective: ID Note- Pt. seen and examined today in ICU. Pt. remains on the vent via traceheostomy. remains lethargic and not responsive. Objective - Vital Signs/Intake and Output Vital Signs (last 24 hours): Temp Pulse Resp BP Pulse Ox 99.7 F H 93 H 24 150/62 100 12/27/16 08:00 12/27/16 10:00 12/27/16 10:00 12/27/16 10:00 12/27/16 10:00 Intake and Output: 12/27/16 12/27/16 06:59 18:59 Intake Total 2060 1040 Output Total 900 525 Balance 1160 515 - Medications Medications: Current Medications Acetaminophen (Tylenol 650 Mg Supp) 650 mg [place] Q6 PRN PRN Reason: Fever >100.4 F Acetaminophen (Tylenol 650mg/20.3ml Solution Ud) 650 mg PO Q4 PRN PRN Reason: Temperature Last Admin: 12/27/16 00:59 Dose: 650 mg Collagenase (Santyl) 1 applic TOP DAILY [facility] Last Admin: 12/27/16 08:56 Dose: 1 applic Furosemide (Lasix) 40 mg IVP DAILY [facility] Last Admin: 12/27/16 08:54 Dose: 40 mg Voriconazole 300 mg/ Sodium (Chloride) 250 mls @ 125 mls/hr IVPB Q12 [facility] Last Admin: 12/27/16 09:02 Dose: 125 mls/hr Meropenem 1 gm/ Sodium (Chloride) 100 mls @ 100 mls/hr IVPB Q12 [facility] Last Admin: 12/27/16 08:55 Dose: 100 mls/hr Vancomycin HCl 750 mg/ Sodium (Chloride) 250 mls @ 166.667 mls/hr IVPB DAILY [facility] Last Admin: 12/27/16 08:56 Dose: 166.667 mls/hr Insulin Human Lispro (Humalog) 0 units SC Q6 [facility] PRN Reason: Protocol Last Admin: 12/27/16 05:14 Dose: Not Given Nystatin (Nystop Topical Powder) 1 applic TOP TID [facility] Last Admin: 12/27/16 08:55 Dose: 1 applic Pantoprazole Sodium (Protonix Inj) 40 mg IVP DAILY [facility] Last Admin: 12/27/16 08:56 Dose: 40 mg - Labs Labs: - Additional Findings Additional findings: - Constitutional Appears: Chronically Ill - ENT Exam Additional comments: ET via trache - Neck Exam Additional comments: supple - Respiratory Exam Additional comments: intubated and on the vent - Cardiovascular Exam Cardiovascular Exam: RRR, +S1, +S2 - GI/Abdominal Exam GI & Abdominal Exam: Soft, Normal Bowel Sounds Additional comments: ND, NT has peg tube in place - Extremities Exam Additional comments: dry b/l heel ulcers, no discharge - Neurological Exam Additional comments: on the vent , does not follow commands Laboratory Results - last 72 hr 12/24/16 12/24/16 12/24/16 12:10 16:56 21:35 WBC 7.1 RBC 3.01 L Hgb 8.8 L Hct 28.0 L MCV 92.9 MCH 29.1 MCHC 31.3 L RDW 17.3 H Plt Count 209 pCO2 pO2 HCO3 ABG pH ABG Total CO2 ABG O2 Saturation ABG O2 Content ABG Base Excess ABG Hemoglobin ABG Carboxyhemoglobin POC ABG HHb (Measured) ABG Methemoglobin ABG O2 Capacity Torres Test A-a O2 Difference Hgb O2 Saturation Vent Mode Mechanical Rate FiO2 Tidal Volume PEEP Pressure Support Sodium Potassium Chloride Carbon Dioxide Anion Gap BUN Creatinine Est GFR ( Amer) Est GFR (Non-Af Amer) POC Glucose (mg/dL) 96 Random Glucose Calcium Vancomycin Trough Blood Type A POSITIVE Antibody Screen Negative Crossmatch See Detail BBK History Checked Patient has bt 12/24/16 12/25/16 12/25/16 21:59 04:59 05:30 WBC 6.9 RBC 2.95 L Hgb 8.8 L Hct 27.3 L MCV 92.3 MCH 29.7 MCHC 32.1 L RDW 17.7 H Plt Count 224 pCO2 pO2 HCO3 ABG pH ABG Total CO2 ABG O2 Saturation ABG O2 Content ABG Base Excess ABG Hemoglobin ABG Carboxyhemoglobin POC ABG HHb (Measured) ABG Methemoglobin ABG O2 Capacity Torres Test A-a O2 Difference Hgb O2 Saturation Vent Mode Mechanical Rate FiO2 Tidal Volume PEEP Pressure Support Sodium Potassium Chloride Carbon Dioxide Anion Gap BUN Creatinine Est GFR ( Amer) Est GFR (Non-Af Amer) POC Glucose (mg/dL) 92 106 Random Glucose Calcium Vancomycin Trough Blood Type Antibody Screen Crossmatch BBK History Checked 12/25/16 12/25/16 12/25/16 05:30 06:00 11:06 WBC RBC Hgb Hct MCV MCH MCHC RDW Plt Count pCO2 39 pO2 125 H HCO3 29.5 H ABG pH 7.49 H ABG Total CO2 30.9 H ABG O2 Saturation 100.4 H ABG O2 Content 12.0 L ABG Base Excess 5.9 H ABG Hemoglobin 8.6 L ABG Carboxyhemoglobin 1.7 H POC ABG HHb (Measured) -0.4 L ABG Methemoglobin 1.8 ABG O2 Capacity 12.0 L Torres Test Yes A-a O2 Difference 76.0 Hgb O2 Saturation 96.8 Vent Mode Simv Mechanical Rate 10 FiO2 35.0 Tidal Volume 450 PEEP 5 Pressure Support 10 Sodium 151 H Potassium 3.8 Chloride 114 H Carbon Dioxide 26 Anion Gap 15 BUN 25 H Creatinine 0.8 Est GFR ( Amer) > 60 Est GFR (Non-Af Amer) > 60 POC Glucose (mg/dL) 135 H Random Glucose 107 Calcium 7.8 L Vancomycin Trough Blood Type Antibody Screen Crossmatch BBK History Checked 12/25/16 12/25/16 12/26/16 16:16 21:28 05:30 WBC RBC Hgb Hct MCV MCH MCHC RDW Plt Count pCO2 pO2 HCO3 ABG pH ABG Total CO2 ABG O2 Saturation ABG O2 Content ABG Base Excess ABG Hemoglobin ABG Carboxyhemoglobin POC ABG HHb (Measured) ABG Methemoglobin ABG O2 Capacity Torres Test A-a O2 Difference Hgb O2 Saturation Vent Mode Mechanical Rate FiO2 Tidal Volume PEEP Pressure Support Sodium Potassium Chloride Carbon Dioxide Anion Gap BUN Creatinine Est GFR ( Amer) Est GFR (Non-Af Amer) POC Glucose (mg/dL) 130 H 121 H Random Glucose Calcium Vancomycin Trough 19.2 H Blood Type Antibody Screen Crossmatch BBK History Checked 12/26/16 12/26/16 12/26/16 05:30 05:32 05:36 WBC RBC Hgb Hct MCV MCH MCHC RDW Plt Count pCO2 42 pO2 75 L HCO3 30.4 H ABG pH 7.48 H ABG Total CO2 32.6 H ABG O2 Saturation 98.4 H ABG O2 Content 12.8 L ABG Base Excess 7.1 H ABG Hemoglobin 9.5 L ABG Carboxyhemoglobin 1.6 H POC ABG HHb (Measured) 1.5 ABG Methemoglobin 1.7 ABG O2 Capacity 13.0 L Torres Test Yes A-a O2 Difference 122.0 Hgb O2 Saturation 95.2 Vent Mode Prvc/simv Mechanical Rate 10 FiO2 35.0 Tidal Volume 450 PEEP 5 Pressure Support 10 Sodium 146 Potassium 3.9 Chloride 109 H Carbon Dioxide 27 Anion Gap 14 BUN 27 H Creatinine 0.8 Est GFR ( Amer) > 60 Est GFR (Non-Af Amer) > 60 POC Glucose (mg/dL) 110 Random Glucose 104 Calcium 7.6 L Vancomycin Trough Blood Type Antibody Screen Crossmatch BBK History Checked 12/26/16 12/26/16 12/26/16 07:00 11:13 16:22 WBC 6.7 RBC 2.95 L Hgb 8.8 L Hct 27.4 L MCV 92.9 MCH 30.0 MCHC 32.3 L RDW 17.5 H Plt Count 224 pCO2 pO2 HCO3 ABG pH ABG Total CO2 ABG O2 Saturation ABG O2 Content ABG Base Excess ABG Hemoglobin ABG Carboxyhemoglobin POC ABG HHb (Measured) ABG Methemoglobin ABG O2 Capacity Torres Test A-a O2 Difference Hgb O2 Saturation Vent Mode Mechanical Rate FiO2 Tidal Volume PEEP Pressure Support Sodium Potassium Chloride Carbon Dioxide Anion Gap BUN Creatinine Est GFR ( Amer) Est GFR (Non-Af Amer) POC Glucose (mg/dL) 127 H 129 H Random Glucose Calcium Vancomycin Trough Blood Type Antibody Screen Crossmatch BBK History Checked 12/26/16 12/27/16 12/27/16 20:57 04:15 04:15 WBC 7.5 RBC 2.90 L Hgb 8.7 L Hct 26.7 L MCV 92.3 MCH 30.0 MCHC 32.5 L RDW 16.7 H Plt Count 217 pCO2 pO2 HCO3 ABG pH ABG Total CO2 ABG O2 Saturation ABG O2 Content ABG Base Excess ABG Hemoglobin ABG Carboxyhemoglobin POC ABG HHb (Measured) ABG Methemoglobin ABG O2 Capacity Torres Test A-a O2 Difference Hgb O2 Saturation Vent Mode Mechanical Rate FiO2 Tidal Volume PEEP Pressure Support Sodium 141 Potassium 3.9 Chloride 106 Carbon Dioxide 25 Anion Gap 13 BUN 31 H Creatinine 0.7 L Est GFR ( Amer) > 60 Est GFR (Non-Af Amer) > 60 POC Glucose (mg/dL) 141 H Random Glucose 108 Calcium 7.7 L Vancomycin Trough Blood Type Antibody Screen Crossmatch BBK History Checked 12/27/16 12/27/16 04:35 11:45 WBC RBC Hgb Hct MCV MCH MCHC RDW Plt Count pCO2 pO2 HCO3 ABG pH ABG Total CO2 ABG O2 Saturation ABG O2 Content ABG Base Excess ABG Hemoglobin ABG Carboxyhemoglobin POC ABG HHb (Measured) ABG Methemoglobin ABG O2 Capacity Torres Test A-a O2 Difference Hgb O2 Saturation Vent Mode Mechanical Rate FiO2 Tidal Volume PEEP Pressure Support Sodium Potassium Chloride Carbon Dioxide Anion Gap BUN Creatinine Est GFR ( Amer) Est GFR (Non-Af Amer) POC Glucose (mg/dL) 123 H 103 Random Glucose Calcium Vancomycin Trough Blood Type Antibody Screen Crossmatch BBK History Checked Microbiology 12/20/16 17:05 Blood-Venous Blood Culture - Final NO GROWTH AFTER 5 DAYS 12/20/16 17:05 Blood-Venous Gram Stain - Final TEST NOT PERFORMED 12/20/16 17:00 Blood-Venous Blood Culture - Final NO GROWTH AFTER 5 DAYS 12/20/16 17:00 Blood-Venous Gram Stain - Final TEST NOT PERFORMED 12/20/16 01:35 Trachasp Gram Stain - Final 12/20/16 01:35 Trachasp Sputum Culture - Final Enterococcus Faecalis 12/16/16 16:40 Blood-Venous Blood Culture - Final NO GROWTH AFTER 5 DAYS 12/16/16 16:40 Blood-Venous Gram Stain - Final TEST NOT PERFORMED 12/13/16 16:45 Blood-Venous Blood Culture - Final NO GROWTH AFTER 5 DAYS 12/13/16 16:45 Blood-Venous Gram Stain - Final TEST NOT PERFORMED 12/13/16 16:45 Blood-Venous Blood Culture - Final NO GROWTH AFTER 5 DAYS 12/13/16 16:45 Blood-Venous Gram Stain - Final TEST NOT PERFORMED 12/04/16 17:00 Trachasp Gram Stain - Final 12/04/16 17:00 Trachasp Sputum Culture - Final NORMAL ORAL ROSEMARY 12/14/16 17:45 Urine,No Urine Culture - Final No Growth (<1,000 CFU/ML) 12/10/16 18:30 Blood-Venous Blood Culture - Final NO GROWTH AFTER 5 DAYS 12/10/16 18:30 Blood-Venous Gram Stain - Final TEST NOT PERFORMED 12/10/16 18:30 Blood-Venous Blood Culture - Final NO GROWTH AFTER 5 DAYS 12/10/16 18:30 Blood-Venous Gram Stain - Final TEST NOT PERFORMED 12/06/16 17:30 Blood-Venous Blood Culture - Final NO GROWTH AFTER 5 DAYS 12/06/16 17:30 Blood-Venous Gram Stain - Final TEST NOT PERFORMED 12/06/16 17:50 Blood-Venous Blood Culture - Final NO GROWTH AFTER 5 DAYS 12/06/16 17:50 Blood-Venous Gram Stain - Final TEST NOT PERFORMED 12/04/16 00:10 Blood-Venous Blood Culture - Final Saccharomyces Cerevisiae 12/04/16 00:10 Blood-Venous Gram Stain - Final 12/04/16 00:10 Blood-Venous S.aureus & Coag-Neg Staph PNA FISH - Final 12/04/16 00:10 Blood-Venous Blood Culture - Final Saccharomyces Cerevisiae 12/04/16 00:10 Blood-Venous Gram Stain - Final 12/04/16 14:00 Blood S.aureus & Coag-Neg Staph PNA FISH - Final 12/04/16 14:00 Blood Blood Culture - Final Saccharomyces Cerevisiae 12/04/16 14:00 Blood Gram Stain - Final 12/04/16 18:00 Blood-Thru Central Line S.aureus & Coag-Neg Staph PNA FISH - Final 12/04/16 18:00 Blood-Thru Central Line Blood Culture - Final Saccharomyces Cerevisiae 12/04/16 18:00 Blood-Thru Central Line Gram Stain - Final 12/04/16 16:50 Urine,No Urine Culture - Final Yeast Species 12/04/16 18:00 Naris MRSA Culture (Admit) - Final MRSA DETECTED 12/04/16 02:05 Urine,No Urine Culture - Final Yeast Species 11/26/16 20:01 Nose MRSA Culture (Admit) - Final MRSA NOT DETECTED 11/20/16 10:00 Blood-Venous Blood Culture - Final NO GROWTH AFTER 5 DAYS 11/20/16 10:00 Blood-Venous Gram Stain - Final TEST NOT PERFORMED 11/21/16 10:00 Trachasp Gram Stain - Final 11/21/16 10:00 Trachasp Sputum Culture - Final Klebsiella Pneumoniae Ssp Pneu 11/20/16 15:00 Nose MRSA Culture (Admit) - Final MRSA NOT DETECTED 11/20/16 01:57 Urine,No Urine Culture - Final No Growth (<1,000 CFU/ML) Assessment and Plan (1) Respiratory failure Status: Acute (2) Septic shock Status: Resolved (3) GEORGINA (acute kidney injury) Status: Acute (4) Fever Status: Acute (5) Fungemia Status: Acute - Assessment and Plan (Free Text) Assessment: A/P- afebrile past 48 hours, no was cahnged 2 days ago. normal wbc count new trach asp cx- E.Fecalis sensitive to vancomycin blood cx from 12/04/2016- yeast sacharomyces cervicedea from both central line and peripheral and urine cx- yeast (new) previous sputum cx from trach- Klebsiella brower sensitive initial + stool c.diff. repeat stool c.diff- negative tox and AG repeat blood cx from 12/06/2016- negative x 2 repeat blood cx from 12/10/2016- negative x 2 repeat blood cx frpm 12/13/2016-neg x 2 repeat blood cx from 12/16-negative repeat blood cx from 12/20- neg x 2 CT abd/pelvis- as per report no perf, no free air and normal bowel. b/l pleural effusion. cxr report noted pneumonia/resp distress s/p trache fungemia is on antifungal medication, repeat blood cx are all negative x 8 c.diff - resolved Plan- continue with meropenem for HAP , day #20 for HAP. continue with meropenem for 1 more day. pending clinical response. completed 2 days of Micafungin for fungemia but once yeast was ID as sacharomyces was switched to voriconazole. day #18. TTE- no vegetations as per report. continue with voriconazole for 3 more days. continue with IV vancomycin as well, day #8( for HAP and will treat the e.fecalis in trach asp cx) . keep trough <15. hold vanco today since trough was 19 and redose tomm if trough <15. awaiting LTAC placement as per ICU . ICU time 45 minutes.
--- NOTE | 2016-12-27 11:52 | CP.PCM.PN ---
Subjective - Date & Time of Evaluation Date of Evaluation: 12/27/16 Time of Evaluation: 09:30 - Subjective Subjective: DOING WELL WITH PEG Objective - Vital Signs/Intake and Output Vital Signs (last 24 hours): Temp Pulse Resp BP Pulse Ox 99.7 F H 93 H 24 150/62 100 12/27/16 08:00 12/27/16 10:00 12/27/16 10:00 12/27/16 10:00 12/27/16 10:00 Intake and Output: 12/27/16 12/27/16 06:59 18:59 Intake Total 2060 1040 Output Total 900 525 Balance 1160 515 - Medications Medications: Current Medications Acetaminophen (Tylenol 650 Mg Supp) 650 mg [place] Q6 PRN PRN Reason: Fever >100.4 F Acetaminophen (Tylenol 650mg/20.3ml Solution Ud) 650 mg PO Q4 PRN PRN Reason: Temperature Last Admin: 12/27/16 00:59 Dose: 650 mg Collagenase (Santyl) 1 applic TOP DAILY [facility] Last Admin: 12/27/16 08:56 Dose: 1 applic Furosemide (Lasix) 40 mg IVP DAILY [facility] Last Admin: 12/27/16 08:54 Dose: 40 mg Voriconazole 300 mg/ Sodium (Chloride) 250 mls @ 125 mls/hr IVPB Q12 [facility] Last Admin: 12/27/16 09:02 Dose: 125 mls/hr Meropenem 1 gm/ Sodium (Chloride) 100 mls @ 100 mls/hr IVPB Q12 [facility] Last Admin: 12/27/16 08:55 Dose: 100 mls/hr Vancomycin HCl 750 mg/ Sodium (Chloride) 250 mls @ 166.667 mls/hr IVPB DAILY [facility] Last Admin: 12/27/16 08:56 Dose: 166.667 mls/hr Insulin Human Lispro (Humalog) 0 units SC Q6 [facility] PRN Reason: Protocol Last Admin: 12/27/16 05:14 Dose: Not Given Nystatin (Nystop Topical Powder) 1 applic TOP TID [facility] Last Admin: 12/27/16 08:55 Dose: 1 applic Pantoprazole Sodium (Protonix Inj) 40 mg IVP DAILY [facility] Last Admin: 12/27/16 08:56 Dose: 40 mg - Labs Labs: 12/27/16 04:15 12/27/16 04:15 PT 14.8 Seconds (9.8-13.1) H 12/24/16 04:30 INR 1.4 (0.9-1.2) H 12/24/16 04:30 APTT 32.9 Seconds (25.6-37.1) 12/24/16 04:30 - Cardiovascular Exam Cardiovascular Exam: REGULAR RHYTHM - GI/Abdominal Exam GI & Abdominal Exam: Soft, Normal Bowel Sounds Assessment and Plan - Assessment and Plan (Free Text) Assessment: 71 yo male with dysphagia doing well with peg dc planning
--- NOTE | 2016-12-27 14:34 | PN ---
DATE: 12/27/2016 LOCATION: The patient in ICU, bed 431. TIME SPENT: 35 minutes. SUBJECTIVE: The patient is seen and examined at the bedside. Events since that admission reviewed. Case discussed in ICU in a.m. rounds. Status post tracheostomy postop day 5. Status post PEG postop day 3. Remains intubated on mechanical ventilation on SIMV/PRVC rate 10, tidal volume of 450. PEEP of 5. FiO2 of 35%. Exhaled rate 21, exhaled tidal volume 410, minute ventilation 10.8 liters, saturation 100%. Peak airway pressure 17, mean airway pressure 10 and tidal CO2 is 20. No sedation. PHYSICAL EXAMINATION VITAL SIGNS: Temperature 99.7, heart rate 93, respiratory rate 24, blood pressure 150/62, oxygen saturation 100%. Intake 4290, output 1975, positive balance 2315. HEAD, EYES, EARS, NOSE AND THROAT: Pupils reactive. Conjunctiva pink. Sclerae white. NECK: Supple. Tracheostomy in place. No secretion noted. CHEST: Bilateral breath sounds diminished in intensity. Fine crepitations at the bases. HEART: Rhythm regular. S1 and S2 normal. No audible murmur. ABDOMEN: Bowel sounds present and soft. EXTREMITIES: Trace edema. NEUROLOGIC: Arousable, but very lethargic. Does not follow any commands. SKIN: Warm to touch. CURRENT MEDICATIONS: Include Tylenol 650 q. 6 p.r.n., Santyl one application topically daily, furosemide 40 mg IV daily, Accu-Chek with regular insulin coverage, meropenem 1 g IV q. 12 hours, Nystatin powder topically one application 3 times daily, Protonix 40 IV daily, vancomycin 750 mg IV daily, voriconazole 300 mg q. 12 hours. LABORATORY DATA: WBC 7.5, hemoglobin 8.7, hematocrit 26.7, and platelet count 270. PT 14.8, INR 1.4 and PTT 32.9. ABG; pH 7.48, pCO2 of 42, pO2 of 75, saturation 98.4 on SIMV/PRVC, rate 10, FiO2 is 35, tidal volume 450, pressure support of 10 and PEEP of 5. SMA-7, sodium 141, potassium 3.9, chloride 106, CO2 of 25, blood urea nitrogen 31, creatinine 0.7, glucose 123, and calcium 7.7. Urinalysis; rbc 22, microscopic wbc 67. Stool occult blood positive. Vancomycin trough level 19.2. C. diff positive. IMPRESSION: 1. NEUROLOGIC: Remains lethargic. Metabolic septic encephalopathy, advanced dementia. 2. PULMONARY: Status post tracheostomy. Recurrent respiratory failure. Healthcare associated pneumonia. Urinary tract infection. On vancomycin, meropenem and fluconazole. 3. CARDIAC: Remains normotensive. No cardiac arrhythmia noted. 4. GASTROINTESTINAL: Status post PEG insertion. Continue gastrointestinal prophylaxis. 5. HEMATOLOGY: Leukocytosis, resolved. Anemia from chronic disease; however, stool guaiac remains positive probably secondary to gastritis. Continue gastrointestinal prophylaxis. 6. RENAL: Hyponatremia, resolved. 7. INFECTIOUS DISEASE: Status post respiratory failure. Healthcare associated pneumonia. Sputum positive for Enterococcus faecalis, peripheral vascular disease with amputation of left third toe. Urinary tract infection. Continue antibiotic as per infectious disease consult. I would request social service for evaluation for long-term acute care placement and to continue wean from the ventilator. Heri Izquierdo MD
--- NOTE | 2016-12-27 18:20 | CP.PCM.PN ---
Subjective - Date & Time of Evaluation Date of Evaluation: 12/27/16 Time of Evaluation: 10:45 - Subjective Subjective: F/U Respiratory Failure Pt with eyes open, following with head verbal stimuli, no following commands. Objective - Vital Signs/Intake and Output Vital Signs (last 24 hours): Temp Pulse Resp BP Pulse Ox 97.4 F L 102 H 19 140/77 100 12/27/16 15:51 12/27/16 15:51 12/27/16 15:51 12/27/16 15:51 12/27/16 15:51 Intake and Output: 12/27/16 12/27/16 06:59 18:59 Intake Total 2060 2040 Output Total 900 1450 Balance 1160 590 - Medications Medications: Current Medications Acetaminophen (Tylenol 650 Mg Supp) 650 mg [place] Q6 PRN PRN Reason: Fever >100.4 F Acetaminophen (Tylenol 650mg/20.3ml Solution Ud) 650 mg PO Q4 PRN PRN Reason: Temperature Last Admin: 12/27/16 00:59 Dose: 650 mg Collagenase (Santyl) 1 applic TOP DAILY [facility] Last Admin: 12/27/16 08:56 Dose: 1 applic Furosemide (Lasix) 40 mg IVP DAILY [facility] Last Admin: 12/27/16 08:54 Dose: 40 mg Voriconazole 300 mg/ Sodium (Chloride) 250 mls @ 125 mls/hr IVPB Q12 [facility] Last Admin: 12/27/16 09:02 Dose: 125 mls/hr Meropenem 1 gm/ Sodium (Chloride) 100 mls @ 100 mls/hr IVPB Q12 [facility] Last Admin: 12/27/16 08:55 Dose: 100 mls/hr Vancomycin HCl 750 mg/ Sodium (Chloride) 250 mls @ 166.667 mls/hr IVPB DAILY [facility] Last Admin: 12/27/16 08:56 Dose: 166.667 mls/hr Insulin Human Lispro (Humalog) 0 units SC Q6 [facility] PRN Reason: Protocol Last Admin: 12/27/16 16:10 Dose: Not Given Nystatin (Nystop Topical Powder) 1 applic TOP TID [facility] Last Admin: 12/27/16 16:10 Dose: 1 applic Pantoprazole Sodium (Protonix Inj) 40 mg IVP DAILY [facility] Last Admin: 12/27/16 08:56 Dose: 40 mg - Labs Labs: 12/27/16 04:15 12/27/16 04:15 PT 14.8 Seconds (9.8-13.1) H 12/24/16 04:30 INR 1.4 (0.9-1.2) H 12/24/16 04:30 APTT 32.9 Seconds (25.6-37.1) 12/24/16 04:30 - Constitutional Appears: Chronically Ill - Head Exam Head Exam: NORMAL INSPECTION - Eye Exam Eye Exam: PERRL - ENT Exam Additional comments: Tracheostomy - Neck Exam Neck Exam: Normal Inspection - Respiratory Exam Respiratory Exam: Rhonchi (b/l) - Cardiovascular Exam Cardiovascular Exam: REGULAR RHYTHM - GI/Abdominal Exam GI & Abdominal Exam: Soft, Normal Bowel Sounds Additional comments: Peg tube in place - Extremities Exam Additional comments: Edema upper extremities. - Back Exam Additional comments: Sacral ulcer - Neurological Exam Additional comments: Open eyes to to verbal stimuli, does not following commands, generalized weakness. - Psychiatric Exam Psychiatric exam: Flat Affect - Skin Skin Exam: Warm Additional comments: Multiple ulcers: R foot, L hip, Sacral. Assessment and Plan (1) Acute hypercapnic respiratory failure Status: Acute (2) Klebsiella pneumonia Status: Acute (3) Dehydration Status: Acute (4) Septic shock Status: Resolved (5) GEORGINA (acute kidney injury) Status: Acute (6) Type 2 diabetes mellitus with hyperglycemia Status: Chronic (7) HTN (hypertension) Status: Chronic (8) C. difficile colitis Status: Acute (9) Alkaline phosphatase elevation Status: Acute (10) Fungemia Status: Acute - Assessment and Plan (Free Text) Plan: Continue current Tx, As per Supervisor [employer] Dr. Izquierdo, Pt for LTAC placement tomorrow.
[2016-12-28] MEDS: Insulin Lispro (humaLOG) 100 Units/ml Inj SC SCH ×3 (04:16→12:19)
[2016-12-28 05:16] LABS: HEMATOCRIT 27.7 % (35.0-51.0); MEAN CELL VOLUME 93.3 fl (80.0-94.0); MEAN CORPUSCULAR HEMOGLOBIN 30.2 pg (27.0-31.0); MEAN CORPUSCULAR HGB CONC 32.4 g/dL (33.0-37.0); RED CELL DISTRIBUTION WIDTH 16.3 % (11.5-14.5)
[2016-12-28 05:32] LABS: BLOOD UREA NITROGEN 33 mg/dl (9-20); CALCIUM 7.6 mg/dL (8.4-10.2); CARBON DIOXIDE 23 mmol/L (22-30); CHLORIDE 105 mmol/L (98-107); GFR AFRICAN-AMERICAN > 60; GLUCOSE,RANDOM 109 mg/dL (75-110); SODIUM 139 mmol/l (132-148)
[2016-12-28 05:34] LABS: POTASSIUM 4.9 MMOL/L (3.6-5.0)
[2016-12-28] MEDS: Meropenem 1 GM in Sodium Chloride 0.9% 100 ML IVPB SCH (08:51)
[2016-12-28] MEDS: Santyl Collagenase OINTMENT TOP SCH (08:52)
[2016-12-28 10:08] VITALS: O2SAT 98
[2016-12-28 12:34] VITALS: BP 143/71; PULSE 105; RESP 19; TEMP 99.9
--- NOTE | 2016-12-28 13:08 | CP.CCUPN ---
<Lilian Low - Last Filed: 12/28/16 13:04> CCU Subjective - Physician Review Subjective (Free Text): 12/28/16 13:04 POD 4 s/p PEG tube placement; POD 6 s/p open tracheostomy Patient seen and examined at bedside. Remains dependant on mechanical ventilation, tolerating PRVC/SIMV. 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, smiles when prompted to in latvian, follows some commands (opens mouth, smiles, moves head and neck, right arm) CCU Objective - Vital Signs / Intake & Output Vital Signs (Last 4 hours): Vital Signs Temp Pulse Resp BP Pulse Ox 12/28/16 12:00 99.9 F H 105 H 19 143/71 98 12/28/16 10:00 102 H 14 145/75 98 Intake and Output (Last 8hrs): Intake & Output 12/27/16 12/28/16 12/28/16 22:59 06:59 14:59 Intake Total 1430 1470 1250 Output Total 525 1600 925 Balance 905 -130 325 Intake: Intake, Piggyback 350 350 Tube Feeding 580 720 400 Free Water Flush 500 750 500 Output: Urine 525 1100 925 Urethral (No) 525 1100 925 Stool 500 - Physical Exam Head: Positive for: Atraumatic, Normocephalic Pupils: Positive for: PERRL Extroacular Muscles: Positive for: EOMI. Negative for: Gaze Palsy Conjunctiva: Positive for: Normal. Negative for: Injected, Icteric Mouth: Positive for: Moist Mucous Membranes Neck: Positive for: Normal Range of Motion, Other (mechanical ventilation via tracheostomy tube in place). Negative for: Meningeal Signs, JVD, Lymphadenopathy Respiratory/Chest: Positive for: Clear to Auscultation. Negative for: Accessory Muscle Use, Wheezes, Rhonchi Cardiovascular: Positive for: Regular Rate and Rhythm. Negative for: Murmurs, Rub Abdomen: Positive for: Other (LUQ PEG tube in place, surrounding area clean/dry/ intact). Negative for: Tenderness, Distention Rectal: Positive for: Other (rectal tube with liquid brown stool) Genitourinary Male: Positive for: Other (no catheter in place, draining clear yellow urine) Back: Positive for: Decubitus Ulcer (multiple ulcers: sacral, left hip, left lateral hip) Upper Extremity: Positive for: Edema (improved b/l edema, left hand IV ) Lower Extremity: Positive for: Edema (bilateral-improved), Other (right foot wounds, no drainage). 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 Negative for: Rashes Psychiatric: Positive for: Alert - Medications Active Medications: Active Medications Generic Name Dose Route Start Last Admin Trade Name Freq PRN Reason Stop Dose Admin Acetaminophen 650 mg 12/23/16 20:47 Tylenol 650 Mg Supp DC Q6 PRN Fever >100.4 F Acetaminophen 650 mg 12/25/16 12:45 12/27/16 00:59 Tylenol 650mg/20.3ml Solution Ud PO 650 mg Q4 PRN Administration Temperature Collagenase 1 applic 12/24/16 09:00 12/28/16 08:52 Santyl TOP 1 applic DAILY LARRY Administration Furosemide 40 mg 12/24/16 09:00 12/28/16 08:51 Lasix IVP 40 mg DAILY LARRY Administration Voriconazole 300 mg/ Sodium 250 mls @ 125 mls/hr 12/23/16 21:00 12/28/16 10: 37 Chloride IVPB 125 mls/hr Q12 LARRY Administration Meropenem 1 gm/ Sodium 100 mls @ 100 mls/hr 12/23/16 21:00 12/28/16 08:51 Chloride IVPB 100 mls/hr Q12 LARRY Administration Vancomycin HCl 750 mg/ Sodium 250 mls @ 166.667 mls/hr 12/24/16 09:00 08:56 Chloride IVPB 166.667 mls/hr DAILY LARRY Administration Insulin Human Lispro 0 units 12/23/16 22:00 12/28/16 12:19 Humalog SC Not Given Q6 LARRY Protocol Nystatin 1 applic 12/24/16 09:00 12/28/16 12:20 Nystop Topical Powder TOP 1 applic TID LARRY Administration Pantoprazole Sodium 40 mg 12/24/16 09:00 12/28/16 08:52 Protonix Inj IVP 40 mg DAILY LARRY Administration - Patient Studies Lab Studies: Lab Studies 12/28/16 12/28/16 12/28/16 Range/Units 11:19 05:27 04:30 WBC (4.8-10.8) K/uL RBC (4.40-5.90) Mil/uL Hgb (12.0-18.0) g/dL Hct (35.0-51.0) % MCV (80.0-94.0) fl MCH (27.0-31.0) pg MCHC (33.0-37.0) g/dL RDW (11.5-14.5) % Plt Count (130-400) K/uL Sodium 139 (132-148) mmol/l Potassium 4.9 (3.6-5.0) MMOL/L Chloride 105 (98-107) mmol/L Carbon Dioxide 23 (22-30) mmol/L Anion Gap 16 (10-20) BUN 33 H (9-20) mg/dl Creatinine 0.7 L (0.8-1.5) mg/dL Est GFR ( Amer) > 60 Est GFR (Non-Af Amer) > 60 POC Glucose (mg/dL) 134 H 129 H (65-110) mg/dL Random Glucose 109 (75-110) mg/dL Calcium 7.6 L (8.4-10.2) mg/dL Vancomycin Trough (5.0-10.0) ug/mL C. difficile Tox B Gene (Not Detected) 12/28/16 12/28/16 12/27/16 Range/Units 04:30 04:30 21:45 WBC 8.0 (4.8-10.8) K/uL RBC 2.97 L (4.40-5.90) Mil/uL Hgb 9.0 L (12.0-18.0) g/dL Hct 27.7 L (35.0-51.0) % MCV 93.3 (80.0-94.0) fl MCH 30.2 (27.0-31.0) pg MCHC 32.4 L (33.0-37.0) g/dL RDW 16.3 H (11.5-14.5) % Plt Count 199 (130-400) K/uL Sodium (132-148) mmol/l Potassium (3.6-5.0) MMOL/L Chloride (98-107) mmol/L Carbon Dioxide (22-30) mmol/L Anion Gap (10-20) BUN (9-20) mg/dl Creatinine (0.8-1.5) mg/dL Est GFR ( Amer) Est GFR (Non-Af Amer) POC Glucose (mg/dL) 132 H (65-110) mg/dL Random Glucose (75-110) mg/dL Calcium (8.4-10.2) mg/dL Vancomycin Trough 19.3 H (5.0-10.0) ug/mL C. difficile Tox B Gene (Not Detected) 12/27/16 12/25/16 Range/Units 16:01 17:47 WBC (4.8-10.8) K/uL RBC (4.40-5.90) Mil/uL Hgb (12.0-18.0) g/dL Hct (35.0-51.0) % MCV (80.0-94.0) fl MCH (27.0-31.0) pg MCHC (33.0-37.0) g/dL RDW (11.5-14.5) % Plt Count (130-400) K/uL Sodium (132-148) mmol/l Potassium (3.6-5.0) MMOL/L Chloride (98-107) mmol/L Carbon Dioxide (22-30) mmol/L Anion Gap (10-20) BUN (9-20) mg/dl Creatinine (0.8-1.5) mg/dL Est GFR ( Amer) Est GFR (Non-Af Amer) POC Glucose (mg/dL) 138 H (65-110) mg/dL Random Glucose (75-110) mg/dL Calcium (8.4-10.2) mg/dL Vancomycin Trough (5.0-10.0) ug/mL C. difficile Tox B Gene Not detected (Not Detected) Laboratory Results - last 24 hr 12/25/16 12/27/16 12/27/16 17:47 16:01 21:45 WBC RBC Hgb Hct MCV MCH MCHC RDW Plt Count Sodium Potassium Chloride Carbon Dioxide Anion Gap BUN Creatinine Est GFR ( Amer) Est GFR (Non-Af Amer) POC Glucose (mg/dL) 138 H 132 H Random Glucose Calcium Vancomycin Trough C. difficile Tox B Gene Not detected 12/28/16 12/28/16 12/28/16 04:30 04:30 04:30 WBC 8.0 RBC 2.97 L Hgb 9.0 L Hct 27.7 L MCV 93.3 MCH 30.2 MCHC 32.4 L RDW 16.3 H Plt Count 199 Sodium 139 Potassium 4.9 Chloride 105 Carbon Dioxide 23 Anion Gap 16 BUN 33 H Creatinine 0.7 L Est GFR ( Amer) > 60 Est GFR (Non-Af Amer) > 60 POC Glucose (mg/dL) Random Glucose 109 Calcium 7.6 L Vancomycin Trough 19.3 H C. difficile Tox B Gene 12/28/16 12/28/16 05:27 11:19 WBC RBC Hgb Hct MCV MCH MCHC RDW Plt Count Sodium Potassium Chloride Carbon Dioxide Anion Gap BUN Creatinine Est GFR ( Amer) Est GFR (Non-Af Amer) POC Glucose (mg/dL) 129 H 134 H Random Glucose Calcium Vancomycin Trough C. difficile Tox B Gene Fingerstick Blood Sugar Results: 134 Review of Systems - Review of Systems Systems not reviewed;Unavailable: Other (ventilator dependant via tracheostomy, not verbal at this time,) Critical Care Progress Note - Ventilator Checklist Head of Bed 30 Degrees: Yes Daily Sedation Vacation: No (pt not sedated) Daily Assessment of Readiness to Wean: Yes Daily Spontaneous Breathing Trial: Yes PUD Prophalyxis: Yes DVT Prophylaxis: Yes (SCD's) Oral Care with Chlorhexidine Gluconate {CHG}: Yes - Vent Settings MODE:: PRVC (/SIMV) TIDAL VOLUME:: 450 RESP RATE:: 10 FIO2:: 35 PEEP:: 5 - Extremities/Vascular Does the Patient have a Central Venous Catheter?: No Does the Patient need a Central Venous Catheter?: No Does the Patient have a No Catheter?: Yes Does the Patient need a No Catheter?: Yes Catheter Insertion Criteria: Stage 3/Stage 4 decubits as per policy - Prophylaxis GI Prophylaxis GI: PPI - Prophylaxis DVT Prophylaxis DVT: SCDs Assessment/Plan - Assessment and Plan (Free Text) Assessment: 71 yr old M resident at [facility] with PMHx including HTN, A-fib, dyslipidemia , DM Type 2, diabetic neuropathy, renal insufficiency, PVD, anemia, Dementia, Osteomyelitis R foot bone base on 2015, Avascular Necrosis R Hip, Hx falls , Alcohol abuse admitted to ICU for respiratory failure requiring intubation s/ p pneumonia and septic shock. Patient with fungemia 12/04/16 , UCx + yeast species 12/04/16, Klebsiella pneumoniae 11/21, C. diff + 11/20. POD 6 s/p open tracheostomy placement; POD 4 s/p PEG tube placement. 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 Tolerating PEG tube feeds. Patient is medically cleared for transfer to LTAC. 1. Acute Hypercapneic Respiratory Failure 2dary to pneumonia -2nd intubation 12/04 (1st intubation 11/20-extubated 11/24) 2. s/p ventricular arrhythmias, ?? 2dary to alkalosis 3. Sacchromyces cerevisiae Fungemia 4. UTI 5. C diff 6. Anemia of Chronic Disease with coagulopathy 7. GI/DVT prophylaxis 1. POD 6 s/p open tracheostomy tube, PRVC/SIMV vent mode; ID on board:Dr. Masters-will follow recommendations: last day of Meropenem today 2. stable, EKG 12/08/16: sinus rhythm with premature supraventricular complexes with occasional PVC's, prolonged QT, Cardiology-Dr. Barnes 3. repeat BCx 12/20/16 neg x 2; BCx + 12/20/16, ID on board, continue with Voriconazole x 2 more days (until 12/30), vancomycin held as vanco trough 19.3 today 4. UA with large leukocyte esterase, occult bacteria 12/14; no replaced, UCx : no growth 5.+ 11/20; (2 negative C diff 11/24, 11/21), ID on board 6. stable H/H 9.0/27.7 , 1 unit pRBC's transfused 12/24/16 7. Protonix 40mg IV QD/ SCD's - Date & Time Date: 12/28/16 Time: 10:05 <Heri Izquierdo V - Last Filed: 12/28/16 14:08> CCU Subjective - Physician Review Events Since Last Encounter (Free Text): 12/28/16 14:07 patient is seen and examined at bedside. case was discussed in ICU rounds. Agree with plan of care as detailed in resident's note CCU Objective - Vital Signs / Intake & Output Vital Signs (Last 4 hours): Vital Signs Temp Pulse Resp BP Pulse Ox 12/28/16 12:00 99.9 F H 105 H 19 143/71 98 Intake and Output (Last 8hrs): Intake & Output 12/27/16 12/28/16 12/28/16 22:59 06:59 14:59 Intake Total 1430 1470 1250 Output Total 525 1600 925 Balance 905 -130 325 Intake: Intake, Piggyback 350 350 Tube Feeding 580 720 400 Free Water Flush 500 750 500 Output: Urine 525 1100 925 Urethral (No) 525 1100 925 Stool 500 - Medications Active Medications: Active Medications Generic Name Dose Route Start Last Admin Trade Name Freq PRN Reason Stop Dose Admin Acetaminophen 650 mg 12/23/16 20:47 Tylenol 650 Mg Supp DC Q6 PRN Fever >100.4 F Acetaminophen 650 mg 12/25/16 12:45 12/27/16 00:59 Tylenol 650mg/20.3ml Solution Ud PO 650 mg Q4 PRN Administration Temperature Collagenase 1 applic 12/24/16 09:00 12/28/16 08:52 Santyl TOP 1 applic DAILY LARRY Administration Furosemide 40 mg 12/24/16 09:00 12/28/16 08:51 Lasix IVP 40 mg DAILY LARRY Administration Voriconazole 300 mg/ Sodium 250 mls @ 125 mls/hr 12/23/16 21:00 12/28/16 10: 37 Chloride IVPB 125 mls/hr Q12 LARRY Administration Meropenem 1 gm/ Sodium 100 mls @ 100 mls/hr 12/23/16 21:00 12/28/16 08:51 Chloride IVPB 100 mls/hr Q12 LARRY Administration Vancomycin HCl 750 mg/ Sodium 250 mls @ 166.667 mls/hr 12/24/16 09:00 08:56 Chloride IVPB 166.667 mls/hr DAILY LARRY Administration Insulin Human Lispro 0 units 12/23/16 22:00 12/28/16 12:19 Humalog SC Not Given Q6 LARRY Protocol Nystatin 1 applic 12/24/16 09:00 12/28/16 12:20 Nystop Topical Powder TOP 1 applic TID LARRY Administration Pantoprazole Sodium 40 mg 12/24/16 09:00 12/28/16 08:52 Protonix Inj IVP 40 mg DAILY LARRY Administration - Patient Studies Lab Studies: Lab Studies 12/28/16 12/28/16 12/28/16 Range/Units 11:19 05:27 04:30 WBC (4.8-10.8) K/uL RBC (4.40-5.90) Mil/uL Hgb (12.0-18.0) g/dL Hct (35.0-51.0) % MCV (80.0-94.0) fl MCH (27.0-31.0) pg MCHC (33.0-37.0) g/dL RDW (11.5-14.5) % Plt Count (130-400) K/uL Sodium 139 (132-148) mmol/l Potassium 4.9 (3.6-5.0) MMOL/L Chloride 105 (98-107) mmol/L Carbon Dioxide 23 (22-30) mmol/L Anion Gap 16 (10-20) BUN 33 H (9-20) mg/dl Creatinine 0.7 L (0.8-1.5) mg/dL Est GFR ( Amer) > 60 Est GFR (Non-Af Amer) > 60 POC Glucose (mg/dL) 134 H 129 H (65-110) mg/dL Random Glucose 109 (75-110) mg/dL Calcium 7.6 L (8.4-10.2) mg/dL Vancomycin Trough (5.0-10.0) ug/mL C. difficile Tox B Gene (Not Detected) 12/28/16 12/28/16 12/27/16 Range/Units 04:30 04:30 21:45 WBC 8.0 (4.8-10.8) K/uL RBC 2.97 L (4.40-5.90) Mil/uL Hgb 9.0 L (12.0-18.0) g/dL Hct 27.7 L (35.0-51.0) % MCV 93.3 (80.0-94.0) fl MCH 30.2 (27.0-31.0) pg MCHC 32.4 L (33.0-37.0) g/dL RDW 16.3 H (11.5-14.5) % Plt Count 199 (130-400) K/uL Sodium (132-148) mmol/l Potassium (3.6-5.0) MMOL/L Chloride (98-107) mmol/L Carbon Dioxide (22-30) mmol/L Anion Gap (10-20) BUN (9-20) mg/dl Creatinine (0.8-1.5) mg/dL Est GFR ( Amer) Est GFR (Non-Af Amer) POC Glucose (mg/dL) 132 H (65-110) mg/dL Random Glucose (75-110) mg/dL Calcium (8.4-10.2) mg/dL Vancomycin Trough 19.3 H (5.0-10.0) ug/mL C. difficile Tox B Gene (Not Detected) 12/27/16 12/25/16 Range/Units 16:01 17:47 WBC (4.8-10.8) K/uL RBC (4.40-5.90) Mil/uL Hgb (12.0-18.0) g/dL Hct (35.0-51.0) % MCV (80.0-94.0) fl MCH (27.0-31.0) pg MCHC (33.0-37.0) g/dL RDW (11.5-14.5) % Plt Count (130-400) K/uL Sodium (132-148) mmol/l Potassium (3.6-5.0) MMOL/L Chloride (98-107) mmol/L Carbon Dioxide (22-30) mmol/L Anion Gap (10-20) BUN (9-20) mg/dl Creatinine (0.8-1.5) mg/dL Est GFR ( Amer) Est GFR (Non-Af Amer) POC Glucose (mg/dL) 138 H (65-110) mg/dL Random Glucose (75-110) mg/dL Calcium (8.4-10.2) mg/dL Vancomycin Trough (5.0-10.0) ug/mL C. difficile Tox B Gene Not detected (Not Detected) Laboratory Results - last 24 hr 12/25/16 12/27/16 12/27/16 17:47 16:01 21:45 WBC RBC Hgb Hct MCV MCH MCHC RDW Plt Count Sodium Potassium Chloride Carbon Dioxide Anion Gap BUN Creatinine Est GFR ( Amer) Est GFR (Non-Af Amer) POC Glucose (mg/dL) 138 H 132 H Random Glucose Calcium Vancomycin Trough C. difficile Tox B Gene Not detected 12/28/16 12/28/16 12/28/16 04:30 04:30 04:30 WBC 8.0 RBC 2.97 L Hgb 9.0 L Hct 27.7 L MCV 93.3 MCH 30.2 MCHC 32.4 L RDW 16.3 H Plt Count 199 Sodium 139 Potassium 4.9 Chloride 105 Carbon Dioxide 23 Anion Gap 16 BUN 33 H Creatinine 0.7 L Est GFR ( Amer) > 60 Est GFR (Non-Af Amer) > 60 POC Glucose (mg/dL) Random Glucose 109 Calcium 7.6 L Vancomycin Trough 19.3 H C. difficile Tox B Gene 12/28/16 12/28/16 05:27 11:19 WBC RBC Hgb Hct MCV MCH MCHC RDW Plt Count Sodium Potassium Chloride Carbon Dioxide Anion Gap BUN Creatinine Est GFR ( Amer) Est GFR (Non-Af Amer) POC Glucose (mg/dL) 129 H 134 H Random Glucose Calcium Vancomycin Trough C. difficile Tox B Gene
--- NOTE | 2016-12-28 16:51 | CP.PCM.PN ---
Subjective - Date & Time of Evaluation Date of Evaluation: 12/27/16 Time of Evaluation: 11:00 - Subjective Subjective: F/U Respiratory Failure Pt with eyes open, follows with head movements verbal stimuli, following simple commands likely squeezing the hands, vent PRVC SIMV FIO2 35%. Objective - Vital Signs/Intake and Output Vital Signs (last 24 hours): Temp Pulse Resp BP Pulse Ox 99.9 F H 105 H 19 143/71 98 12/28/16 12:00 12/28/16 12:00 12/28/16 12:00 12/28/16 12:00 12/28/16 12:00 Intake and Output: 12/28/16 12/28/16 06:59 18:59 Intake Total 2310 1250 Output Total 1600 925 Balance 710 325 - Labs Labs: 12/28/16 04:30 12/28/16 04:30 PT 14.8 Seconds (9.8-13.1) H 12/24/16 04:30 INR 1.4 (0.9-1.2) H 12/24/16 04:30 APTT 32.9 Seconds (25.6-37.1) 12/24/16 04:30 - Constitutional Appears: Chronically Ill - Head Exam Head Exam: NORMAL INSPECTION - Eye Exam Eye Exam: PERRL - ENT Exam ENT Exam: Normal Exam Additional comments: Tracheostomy - Neck Exam Neck Exam: Normal Inspection - Respiratory Exam Respiratory Exam: Decreased Breath Sounds (at bases), Rhonchi (scattered at bases) - Cardiovascular Exam Cardiovascular Exam: REGULAR RHYTHM - GI/Abdominal Exam GI & Abdominal Exam: Soft, Normal Bowel Sounds Additional comments: Peg tube - Extremities Exam Additional comments: Edema U/E , L/E - Back Exam Additional comments: Sacral ulcer, unstageable. - Neurological Exam Neurological Exam: Awake Additional comments: Open eyes to verbal stimuli, follows simple commands, generalized weakness. - Psychiatric Exam Psychiatric exam: Normal Mood - Skin Skin Exam: Warm (Multiple pressure ulcers: Sacral, L hip, R foot.) Assessment and Plan (1) Acute hypercapnic respiratory failure Status: Acute (2) Klebsiella pneumonia Status: Acute (3) Fungemia Status: Resolved (4) Dehydration Status: Resolved (5) Septic shock Status: Resolved (6) GEORGINA (acute kidney injury) Status: Acute (7) Type 2 diabetes mellitus with hyperglycemia Status: Chronic (8) HTN (hypertension) Status: Chronic (9) C. difficile colitis Status: Acute (10) Alkaline phosphatase elevation Status: Acute - Assessment and Plan (Free Text) Plan: Pt to be transferred today to LTAC
== END 2016-12-28 14:20 | DRG 4 ==
LOC: H.ER 01:08 → H.ERHOLD 01:33 → H.ICU/CCU 04:27 → H.TEL 11-26 15:39 → H.ICU/CCU 12-04 12:32
PROVIDERS: ADMIT Internal Medicine Pulmonary Disease; ATTEND Internal Medicine Pulmonary Disease
PROC: 5A1955Z Respiratory Ventilation, Greater than 96 Consecutive Hours (ICD-10-PCS; 2016-11-20)
PROC: 0BH17EZ Insertion of Endotracheal Airway into Trachea, Via Natural or Artificial Opening (ICD-10-PCS; 2016-11-20)
PROC: 30233N1 Transfusion of Nonautologous Red Blood Cells into Peripheral Vein, Percutaneous Approach (ICD-10-PCS; 2016-11-23)
PROC: 05HN33Z Insertion of Infusion Device into Left Internal Jugular Vein, Percutaneous Approach (ICD-10-PCS; 2016-12-04)
PROC: B544ZZA Ultrasonography of Left Jugular Veins, Guidance (ICD-10-PCS; 2016-12-04)
PROC: 02HV33Z Insertion of Infusion Device into Superior Vena Cava, Percutaneous Approach (ICD-10-PCS; 2016-12-07)
PROC: 3E04329 Introduction of Other Anti-infective into Central Vein, Percutaneous Approach (ICD-10-PCS; 2016-12-07)
PROC: 3E0234Z Introduction of Serum, Toxoid and Vaccine into Muscle, Percutaneous Approach (ICD-10-PCS; 2016-12-17)
PROC: 0B110F4 Bypass Trachea to Cutaneous with Tracheostomy Device, Open Approach (ICD-10-PCS; principal; 2016-12-22 10:00)
PROC: 0DH63UZ Insertion of Feeding Device into Stomach, Percutaneous Approach (ICD-10-PCS; 2016-12-24)
PROC: 0DB98ZX Excision of Duodenum, Via Natural or Artificial Opening Endoscopic, Diagnostic (ICD-10-PCS; 2016-12-24)
PROC: 3E0G76Z Introduction of Nutritional Substance into Upper GI, Via Natural or Artificial Opening (ICD-10-PCS; 2016-12-24)
DX: A41.1 Sepsis due to other specified staphylococcus (principal); J69.0 Pneumonitis due to inhalation of food and vomit; N17.0 Acute kidney failure with tubular necrosis; R65.21 Severe sepsis with septic shock; J15.0 Pneumonia due to Klebsiella pneumoniae; G92 Toxic encephalopathy; I47.2 Ventricular tachycardia; J90 Pleural effusion, not elsewhere classified; E87.0 Hyperosmolality and hypernatremia; J96.02 Acute respiratory failure with hypercapnia; J96.01 Acute respiratory failure with hypoxia; A04.7 Enterocolitis due to Clostridium difficile; N39.0 Urinary tract infection, site not specified; I48.92 Unspecified atrial flutter; E87.1 Hypo-osmolality and hyponatremia; E87.4 Mixed disorder of acid-base balance; D68.9 Coagulation defect, unspecified; B49 Unspecified mycosis; M87.851 Other osteonecrosis, right femur; J98.11 Atelectasis; Z99.11 Dependence on respirator [ventilator] status; E87.5 Hyperkalemia; E86.0 Dehydration; I48.0 Paroxysmal atrial fibrillation; I49.3 Ventricular premature depolarization; E87.6 Hypokalemia; E83.42 Hypomagnesemia; F03.90 Unspecified dementia, unspecified severity, without behavioral disturbance, psychotic disturbance, mood disturbance, and anxiety; E78.5 Hyperlipidemia, unspecified; D63.8 Anemia in other chronic diseases classified elsewhere; D69.6 Thrombocytopenia, unspecified; K21.0 Gastro-esophageal reflux disease with esophagitis; K44.9 Diaphragmatic hernia without obstruction or gangrene; E11.40 Type 2 diabetes mellitus with diabetic neuropathy, unspecified; E11.65 Type 2 diabetes mellitus with hyperglycemia; I12.9 Hypertensive chronic kidney disease with stage 1 through stage 4 chronic kidney disease, or unspecified chronic kidney disease; N18.9 Chronic kidney disease, unspecified; K29.70 Gastritis, unspecified, without bleeding; E11.22 Type 2 diabetes mellitus with diabetic chronic kidney disease; L89.310 Pressure ulcer of right buttock, unstageable; L89.150 Pressure ulcer of sacral region, unstageable; L89.620 Pressure ulcer of left heel, unstageable; L89.610 Pressure ulcer of right heel, unstageable; L89.510 Pressure ulcer of right ankle, unstageable; B95.2 Enterococcus as the cause of diseases classified elsewhere; I95.89 Other hypotension; I73.9 Peripheral vascular disease, unspecified; R13.10 Dysphagia, unspecified; Y95 Nosocomial condition; F17.210 Nicotine dependence, cigarettes, uncomplicated; Z78.1 Physical restraint status; Z23 Encounter for immunization; F10.21 Alcohol dependence, in remission; Z89.421 Acquired absence of other right toe(s); Z91.81 History of falling